=== PATIENT | female | born 1980 | race Caucasian/White ===

== ENCOUNTER 2018-02-10 11:18 | Emergency (ER) | payer OTHER ==
--- OUTSIDE RECORDS SUMMARY | 2018-02-10 11:20 | XMS REPORT ---
:1980 [facility] Address [address] [place] [id number] Care Team Providers Name Role Phone MILAGRO KIMBROUGH Unavailable Unavailable Problems This patient has no known problems. Allergies, Adverse Reactions, Alerts This patient has no known allergies or adverse reactions. Medications This patient has no known medications. Results Test Description Test Time Test Comments Text Results Atomic Results Result Comments CARDIOLIPIN ANTIBODIES, IGG AND IGM 2016-10-19 11:17:00 Test Item Value Reference Range Comments ANTICARDIOLIPIN IGG ANTIBODY (BEAKER) (test otrn=361) < GPL ANTICARDIOLIPIN IGM ANTIBODY (BEAKER) (test xxng=680) 0.6 MPL Anticardiolipin IgG Result Interpretation: NEG:<20 GPL; U/mlPOS:>/=20 GPL ;U/mlAnticardiolipinIgM Result Interpretation: NEG:<20 MPL; U/mlPOS:>/= 20 MPL;U/[id number] 19:19:00 Test Item Value Reference Range Comments HOMOCYSTEINE (BEAKER) (test ywby=515) 19.1 umol/L 5.1-15.4 HEMOGLOBIN [id number] 16:55:00 Test Item Value Reference Range Comments HEMOGLOBIN A1C (BEAKER) (test rowa=355) 5.1 % 4.3-6.1 TSH/FREE T4 IF [id number] 16:00:00 Test Item Value Reference Range Comments THYROID STIMULATING HORMONE (BEAKER) (test 1.64 uIU/mL 0.35-4.94 tgyv=210) VITAMIN B12 AND [id number] 16:00:00 Test Item Value Reference Range Comments VITAMIN B12 (BEAKER) (test lzoy=813) 241 pg/mL 213-816 FOLATE (BEAKER) (test oywo=493) 3.7 ng/mL >=7.0 Effective 07/08/2014: Folate Reference Range ChangeNew: >=7.0 Previous: & gt;=5.4SEDIMENTATION [id number] 15:57:00 Test Item Value Reference Range Comments SEDIMENTATION RATE, ERYTHROCYTE (BEAKER) (test 8 mm/HR 0-20 elin=835) LIPID [id number] 15:32:00 Test Item Value Reference Range Comments TRIGLYCERIDES (BEAKER) (test aofu=661) 98 mg/dL CHOLESTEROL (BEAKER) (test ehzn=052) 200 mg/dL HDL CHOLESTEROL (BEAKER) (test fdgw=719) 51 mg/dL LDL CHOLESTEROL CALCULATED (BEAKER) (test 129 mg/dL tdlb=822) Triglyceride Reference Range: Low Risk <150 Borderline 150- 199 High Risk 200-499 Very High Risk >=500Cholesterol Reference Range: Low Risk <200 Borderline 200-239 High Risk > 240HDL Cholesterol Reference Range: Low Risk >=60 High Risk <40LDL Cholesterol Reference Range: Optimal <100 Near Optimal 100-129 Borderline 130-159 High 160-189 Very High >=190C-REACTIVE [id number] 15:30:00 Test Item Value Reference Range Comments C-REACTIVE PROTEIN (BEAKER) (test aksk=341) 2.96 mg/dL 0.00-0.50 CBC W/PLT COUNT & AUTO [id number] 15:05:00 Test Item Value Reference Range Comments WHITE BLOOD CELL COUNT (BEAKER) (test deeu=774) 7.8 K/ L 4.0-10.0 RED BLOOD CELL COUNT (BEAKER) (test cwzs=387) 5.50 M/ L 4.00-5.00 HEMOGLOBIN (BEAKER) (test puyt=001) 16.4 GM/DL 12.0-15.0 HEMATOCRIT (BEAKER) (test cpdz=767) 48.2 % 36.0-45.0 MEAN CORPUSCULAR VOLUME (BEAKER) (test joes=558) 87.7 fL 82.0-99.0 MEAN CORPUSCULAR HEMOGLOBIN (BEAKER) (test 29.8 pg 27.0-33.0 tlue=852) MEAN CORPUSCULAR HEMOGLOBIN CONC (BEAKER) (test 34.0 GM/DL 32.0-36.0 dlap=702) RED CELL DISTRIBUTION WIDTH (BEAKER) (test 15.3 % 10.3-14.2 gqbg=815) PLATELET COUNT (BEAKER) (test dzey=657) 217 K/CU MM 150-430 MEAN PLATELET VOLUME (BEAKER) (test szxt=858) 7.3 fL 6.5-10.5 NUCLEATED RED BLOOD CELLS (BEAKER) (test 0 /100 WBC 0-0 elut=497) NEUTROPHILS RELATIVE PERCENT (BEAKER) (test 67 % xmsj=591) LYMPHOCYTES RELATIVE PERCENT (BEAKER) (test 22 % ufur=629) MONOCYTES RELATIVE PERCENT (BEAKER) (test 8 % hmwl=906) EOSINOPHILS RELATIVE PERCENT (BEAKER) (test 1 % pdzi=069) BASOPHILS RELATIVE PERCENT (BEAKER) (test 2 % efqp=727) NEUTROPHILS ABSOLUTE COUNT (BEAKER) (test 5.25 K/ L 1.80-8.00 lxln=954) LYMPHOCYTES ABSOLUTE COUNT (BEAKER) (test 1.68 K/ L 1.48-4.50 yaqw=845) MONOCYTES ABSOLUTE COUNT (BEAKER) (test 0.65 K/ L 0.00-1.30 nqsq=334) EOSINOPHILS ABSOLUTE COUNT (BEAKER) (test 0.09 K/ L 0.00-0.50 gsri=485) BASOPHILS ABSOLUTE COUNT (BEAKER) (test 0.14 K/ L 0.00-0.20 aipz=808) [id number] 07:34:00 Test Item Value Reference Range Comments MAGNESIUM (BEAKER) (test 2.0 mg/dL 1.6-2.6 Specimen slightly hemolyzed udxe=874) BASIC METABOLIC [id number] 07:33:00 Test Item Value Reference Range Comments SODIUM (BEAKER) (test 136 meq/L 136-145 vccy=777) POTASSIUM (BEAKER) (test 4.1 meq/L 3.5-5.1 kvtt=281) CHLORIDE (BEAKER) (test 107 meq/L 98-107 hofk=599) CO2 (BEAKER) (test 20 meq/L 22-29 wtqw=796) BLOOD UREA NITROGEN 10 mg/dL 7-21 (BEAKER) (test cfln=052) CREATININE (BEAKER) (test 0.72 mg/dL 0.57-1.25 gpne=930) GLUCOSE RANDOM (BEAKER) 84 mg/dL 70-105 (test epdl=975) CALCIUM (BEAKER) (test 8.3 mg/dL 8.4-10.2 egrj=111) EGFR (BEAKER) (test 91 mL/min/1.73 sq m ESTIMATED GFR IS NOT wvoa=7886) ACCURATE CREATININE CLEARANCE IN PREDICTING GLOMERULAR FILTRATION RATE. ESTIMATED GFR IS NOT APPLICABLE FOR DIALYSIS PATIENTS. [id number] 07:27:00 Test Item Value Reference Range Comments MAGNESIUM (BEAKER) (test djpm=194) 1.7 mg/dL 1.6-2.6 SCREEN, [id number] 13:54:00 Test Item Value Reference Range Comments TEST URINE (BEAKER) (test dacn=782) Negative [id number] 02:55:00 Test Item Value Reference Range Comments MAGNESIUM (BEAKER) (test satg=243) 1.8 mg/dL 1.6-2.6 PHENYTOIN LEVEL, [id number] 00:30:00 Test Item Value Reference Range Comments PHENYTOIN (DILANTIN) (BEAKER) (test nhsl=960) 7.3 ug/mL 10.0-20.0 HEPATIC FUNCTION [id number] 00:26:00 Test Item Value Reference Range Comments TOTAL PROTEIN (BEAKER) (test ckup=509) 6.4 gm/dL 6.0-8.3 ALBUMIN (BEAKER) (test teig=3226) 3.8 g/dL 3.5-5.0 BILIRUBIN TOTAL (BEAKER) (test zvvf=900) 0.4 mg/dL 0.2-1.2 BILIRUBIN DIRECT (BEAKER) (test dsqy=281) 0.2 mg/dL 0.1-0.5 ALKALINE PHOSPHATASE (BEAKER) (test jmdq=504) 114 U/L 40-150 AST (SGOT) (BEAKER) (test siob=872) 16 U/L 5-34 ALT (SGPT) (BEAKER) (test qcvq=291) 20 U/L 6-55 BASIC METABOLIC [id number] 00:26:00 Test Item Value Reference Range Comments SODIUM (BEAKER) (test 138 meq/L 136-145 bsqd=489) POTASSIUM (BEAKER) (test 4.0 meq/L 3.5-5.1 znss=907) CHLORIDE (BEAKER) (test 109 meq/L 98-107 oith=098) CO2 (BEAKER) (test 21 meq/L 22-29 wtda=468) BLOOD UREA NITROGEN 7 mg/dL 7-21 (BEAKER) (test kozm=973) CREATININE (BEAKER) (test 0.74 mg/dL 0.57-1.25 quyn=998) GLUCOSE RANDOM (BEAKER) 103 mg/dL 70-105 (test uoyt=157) CALCIUM (BEAKER) (test 9.0 mg/dL 8.4-10.2 zthq=309) EGFR (BEAKER) (test 88 mL/min/1.73 sq m ESTIMATED GFR IS NOT gfyv=2140) ACCURATE CREATININE CLEARANCE IN PREDICTING GLOMERULAR FILTRATION RATE. ESTIMATED GFR IS NOT APPLICABLE FOR DIALYSIS PATIENTS. [id number] 00:26:00 Test Item Value Reference Range Comments ALBUMIN (BEAKER) (test hnbf=3401) 3.8 g/dL 3.5-5.0 CBC W/PLT COUNT & AUTO [id number] 00:16:00 Test Item Value Reference Range Comments WHITE BLOOD CELL COUNT (BEAKER) (test khcx=120) 10.1 K/ L 4.0-10.0 RED BLOOD CELL COUNT (BEAKER) (test utxs=257) 5.45 M/ L 4.00-5.00 HEMOGLOBIN (BEAKER) (test hudc=321) 15.5 GM/DL 12.0-15.0 HEMATOCRIT (BEAKER) (test folf=043) 48.8 % 36.0-45.0 MEAN CORPUSCULAR VOLUME (BEAKER) (test sspp=301) 89.6 fL 82.0-99.0 MEAN CORPUSCULAR HEMOGLOBIN (BEAKER) (test 28.4 pg 27.0-33.0 qzll=342) MEAN CORPUSCULAR HEMOGLOBIN CONC (BEAKER) (test 31.7 GM/DL 32.0-36.0 ymyn=981) RED CELL DISTRIBUTION WIDTH (BEAKER) (test 15.5 % 10.3-14.2 jcuf=689) PLATELET COUNT (BEAKER) (test oowz=460) 260 K/CU MM 150-430 MEAN PLATELET VOLUME (BEAKER) (test eqqe=165) 7.7 fL 6.5-10.5 NUCLEATED RED BLOOD CELLS (BEAKER) (test 0 /100 WBC 0-0 wuap=661) NEUTROPHILS RELATIVE PERCENT (BEAKER) (test 83 % yqus=127) LYMPHOCYTES RELATIVE PERCENT (BEAKER) (test 12 % gxbb=020) MONOCYTES RELATIVE PERCENT (BEAKER) (test 4 % yjsq=303) EOSINOPHILS RELATIVE PERCENT (BEAKER) (test 0 % fdnf=214) BASOPHILS RELATIVE PERCENT (BEAKER) (test 0 % qnmc=134) NEUTROPHILS ABSOLUTE COUNT (BEAKER) (test 8.39 K/ L 1.80-8.00 bxpk=544) LYMPHOCYTES ABSOLUTE COUNT (BEAKER) (test 1.24 K/ L 1.48-4.50 mwbj=541) MONOCYTES ABSOLUTE COUNT (BEAKER) (test 0.40 K/ L 0.00-1.30 akkl=510) EOSINOPHILS ABSOLUTE COUNT (BEAKER) (test 0.03 K/ L 0.00-0.50 iddr=350) BASOPHILS ABSOLUTE COUNT (BEAKER) (test 0.03 K/ L 0.00-0.20 fhux=922) 0.00
--- OUTSIDE RECORDS SUMMARY | 2018-02-10 11:20 | XMS REPORT | Clinical Summary ---
:1980 Author Organization [facility] Address [address] [place] [address] Phone Care Team Providers Name Role Phone Unavailable Primary Care Provider Unavailable Allergies Active Allergy Reactions Severity Noted Date Comments Cefaclor 10/14/2016 Sulfa (Sulfonamide Antibiotics) 10/14/2016 Ketorolac 10/14/2016 Current Medications Prescription Sig. Disp. Refills Start Date End Date Status phenytoin (DILANTIN) 100 Take by mouth 3 Active MG ER capsuleIndications: (three) times epilepsy daily. Active Problems Problem Noted Date Headache 10/14/2016 Seizure disorder (HCC) 10/14/2016 Hypertensive urgency 10/14/2016 Social History Tobacco Use Types Packs/Day Years Used Date Never Assessed Sex Assigned at Date Recorded Not on file Last Filed Vital Signs Not on file Plan of Treatment Not on file Results Not on fileafter 02/09/2017
[2018-02-10] MEDS ORDERED: MORPHINE 4 MG/ML SYR ONE ×2 (11:31→11:56)
[2018-02-10] MEDS ORDERED: ONDANSETRON 4 MG/2 ML VIAL ONE ×2 (11:32→13:51)
[2018-02-10] MEDS ORDERED: FOSPHENYTOIN PE 1,000 MG in NA CHLORIDE 0.9% 100 ML IV ONE (13:00)
[2018-02-10] MEDS ORDERED: HYDROCODONE/APAP 10/325 TAB ONE (13:17)
[2018-02-10] MEDS ORDERED: FENTANYL CITR 100 MCG/2 ML ONE (13:19)
--- NOTE | 2018-02-10 13:28 | RAD REPORT ---
EXAM DESCRIPTION: RAD - Humerus Right - 02/10/2018 12:19 pm CLINICAL HISTORY: fall seizure Shoulder pain COMPARISON: Humerus Right dated 12/17/2016; Shoulder Right 2 View dated 02/10/2018 FINDINGS: Study is somewhat limited due to nonstandard anatomic positioning. No acute fracture is se en.
--- NOTE | 2018-02-10 13:30 | RAD REPORT ---
EXAM DESCRIPTION: RAD - Shoulder Right 2 View - 02/10/2018 12:21 pm CLINICAL HISTORY: fall seizure Shoulder pain COMPARISON: Shoulder Right 2 View dated 01/15/2017 FINDINGS: No acute fracture or dislocation is suspected. Mild AC joint degenerative changes.
--- NOTE | 2018-02-10 13:53 | RAD REPORT ---
EXAM DESCRIPTION: CT - CTHCSPWOC - 02/10/2018 1:42 pm CLINICAL HISTORY: Trauma, head and neck injury. fall-seizure COMPARISON: Head C Spine Mpr Wo Con dated 03/13/2017; Head C Spine Mpr Wo Con dated 04/06/2016; CT HEA D CSPINE MPR WO CONTRAST dated 08/15/2015; CT HEAD CSPINE MPR WO CONTRAST dated 06/11/2015 TECHNIQUE: Axial 5 mm thick images of the head were obtained. Axial 2 mm thick images of the cervical spine were obtained with sagittal and coronal reconstruction images generated and reviewed. All CT scans are performed using dose optimization technique as appropriate and may include automated exposure control or mA/KV adjustment according to patient size. FINDINGS: CT HEAD WITHOUT CONTRAST: No acute hemorrhage, hydrocephalus or extra-axial collection is identified.No areas of brain edema or midline shift. The paranasal sinuses and mastoids are clear.The calvarium is intact. CT CERVICAL SPINE WITHOUT CONTRAST: No fracture or subluxation.Moderate lower cervical spondylosis.No prevertebral soft tissues swelling is identified. IMPRESSION: No acute intracranial or cervical spine findings.
--- NOTE | 2018-02-10 14:05 | ER ---
Nurse's Notes [facility] Name: Nelia Corley Age: 37 yrs Sex: Female : 1980 Arrival Date: 02/10/2018 Time: 11:21 Bed 4 Private MD: Diagnosis: Epilepsy and recurrent seizures;Pain in right shoulder;Subtheraputic Dilantin Level (1.9) Presentation: 02/10 11:36 Presenting complaint: Patient states: She thinks that she had a seizure, she woke up on aj1 the couch at approximately 10:30 with no recollection of how she got there. When she woke up she had severe pain in her right shoulder and was unable to move it. Also reports headache. Patient is A\T\O x4 at this time. Transition of care: patient was not received from another setting of care. Onset of symptoms was February 10, 2018 at 10:30. Risk Assessment: Do you want to hurt yourself or someone else? Patient reports no desire to harm self or others. Initial Sepsis Screen: Does the patient meet any 2 criteria? No. Patient's initial sepsis screen is negative. Does the patient have a suspected source of infection? No. Patient's initial sepsis screen is negative. Care prior to arrival: None. 11:36 Method Of Arrival: EMS: [facility] aj 11:36 Acuity: JENNIFER 3 aj1 Triage Assessment: 11:41 General: Appears uncomfortable, Behavior is anxious, crying. Pain: Complains of pain in aj1 top of head, base of the skull, anterior aspect of right shoulder and posterior aspect of right shoulder Pain currently is 10 out of 10 on a pain scale. Historical: - Allergies: 11:41 Ceclor; aj1 11:41 Sulfa (Sulfonamide Antibiotics); aj1 - Home Meds: 11:41 atorvastatin 80 mg Oral tab 1 tab once daily [Active]; clonidine HCl 0.1 mg Oral tab 1 aj1 tab 3 times per day [Active]; Dilantin 100 mg Oral every 8 hours [Active]; folic acid 1 mg Oral tab 1 tab once daily [Active]; hydralazine 25 mg Oral tab 1 tab 4 times per day [Active]; Norvasc 5 mg Oral tab 1 tab once daily [Active]; topiramate 25 mg Oral tab 1 tabs 2 times per day [Active]; buspirone 5 mg Oral tab 1 tab 3 times per day [Active]; - PMHx: 11:41 ADD/ADHD; Anxiety; CVA; Hypertension; NSTEMI; right rotator cuff torn; Seizures; aj1 - Immunization history:: Adult Immunizations up to date. - Ebola Screening: : Patient denies travel to an Ebola-affected area in the 21 days before illness onset. Screenin:43 Abuse screen: Denies threats or abuse. Denies injuries from another. Nutritional aj1 screening: No deficits noted. Tuberculosis screening: No symptoms or risk factors identified. 15:28 Fall Risk None identified. aj1 Assessment: 11:43 General: Appears uncomfortable, Behavior is anxious, crying. Pain: Complains of pain in aj1 posterior aspect of right shoulder and anterior aspect of right shoulder and base of the skull and top of head Pain radiates to right arm Pain currently is 10 out of 10 on a pain scale. Quality of pain is described as sharp, Pinching Pain began 1 hour ago. Is continuous, Alleviated by nothing. Aggravated by repositioning. Neuro: Level of Consciousness is awake, alert, obeys commands, Oriented to person, place, time, situation, Speech is normal, Facial symmetry appears normal. Cardiovascular: Patient's skin is warm and dry. Respiratory: Airway is patent Respiratory effort is even, unlabored, Respiratory pattern is regular, symmetrical. GI: No signs and/or symptoms were reported involving the gastrointestinal system. : No signs and/or symptoms were reported regarding the genitourinary system. EENT: No signs and/or symptoms were reported regarding the EENT system. Derm: No signs and/or symptoms reported regarding the dermatologic system. Skin is pink, warm \T\ dry. normal. Musculoskeletal: Capillary refill < 3 seconds, Range of motion: limited in right shoulder Right radial pulse palpable. 11:55 Reassessment: Patient states that the pain medication we administered has not helped aj1 her pain at all. She would like more pain medication. Notified Dr. Collins. Order received. General: Appears uncomfortable, Behavior is anxious, crying. Pain: Pain currently is 10 out of 10 on a pain scale. Neuro:. 13:10 Reassessment: Patient states that her pain was doing better, but now it is coming back, aj1 she is hurting a lot and needs more pain medication. Notified Dr. Collins. Order received. 13:22 Reassessment: Patient appears in no apparent distress at this time. No changes from aj1 previously documented assessment. Patient and/or family updated on plan of care and expected duration. Pain level reassessed. Patient is alert, oriented x 3, equal unlabored respirations, skin warm/dry/pink. 13:25 Reassessment: Patient taken to CT via stretcher. aj1 13:50 Reassessment: Patient returned from CT via stretcher. States that she is feeling really aj1 nauseated. Notified Dr Collins. Order received. 14:46 Reassessment: Patient appears in no apparent distress at this time. No changes from aj1 previously documented assessment. Patient and/or family updated on plan of care and expected duration. Pain level reassessed. Patient is alert, oriented x 3, equal unlabored respirations, skin warm/dry/pink. Discharge pending Dr. Collins coming to speak with patient. Vital Signs: 11:41 BP 166 / 114; Pulse 80; Resp 22; Temp 98.2; Pulse Ox 96% on R/A; aj1 12:26 BP 142 / 81; Pulse 82; Resp 20; Pulse Ox 97% on R/A; jb1 13:20 BP 165 / 97; Pulse 88; Resp 20; Pulse Ox 97% on R/A; aj1 14:46 BP 152 / 87; Pulse 82; Resp 18; Pulse Ox 99% ; aj1 ED Course: 11:21 Patient arrived in ED. hj 11:24 Julia Barrera FNP-C is PHCP. snw 11:24 Hank Collins MD is Attending Physician. snw 11:33 EKG done, by ED staff, reviewed by Hank Collins MD. jb1 11:36 Aatri Chacon, RN is Primary Nurse. aj1 11:38 Triage completed. aj1 11:40 Initial lab(s) drawn, by me. Inserted saline lock: 22 gauge in left antecubital area, aj1 using aseptic technique. Blood collected. 11:41 Arm band placed on. aj1 11:43 No provider procedures requiring assistance completed. aj1 11:43 Patient has correct armband on for positive identification. Bed in low position. Call aj1 light in reach. Side rails up X2. Seizure precautions initiated. 12:17 X-ray completed. Portable x-ray completed in exam room. Patient tolerated procedure la2 poorly. 12:18 Humerus Right In Process Unspecified. EDMS 12:18 Shoulder Right 2 View In Process Unspecified. EDMS 13:42 Head C Spine Mpr Wo Con In Process Unspecified. EDMS 13:42 CT completed. Patient tolerated procedure well. Patient moved back from CT. cw1 15:27 IV discontinued, intact, bleeding controlled, No redness/swelling at site. Pressure aj1 dressing applied. Sling applied to right arm. Administered Medications: 11:43 Drug: morphine 4 mg Route: IVP; Site: left antecubital; aj1 15:24 Follow up: Response: No adverse reaction aj1 11:43 Drug: Zofran 4 mg Route: IVP; Site: left antecubital; aj1 15:24 Follow up: Response: No adverse reaction aj1 12:00 Drug: morphine 4 mg Route: IVP; Site: left antecubital; aj1 15:25 Follow up: Response: No adverse reaction aj1 13:08 Drug: CEREbyx 1 grams Route: IVPB; Site: left antecubital; aa5 15:25 Follow up: IV Status: Completed infusion; IV Intake: 250ml aj1 13:21 Drug: [place] 10 mg-325 mg 1 tabs Route: PO; aj1 15:25 Follow up: Response: No adverse reaction aj1 13:22 Drug: fentaNYL (PF) 50 mcg Route: IVP; Site: left antecubital; aj1 15:25 Follow up: Response: No adverse reaction aj1 13:52 Drug: Zofran 4 mg Route: IVP; Site: left antecubital; aj1 15:25 Follow up: Response: No adverse reaction aj1 Intake: 15:25 IV: 250ml; Total: 250ml. aj1 Outcome: 14:05 Discharge ordered by . kdr 15:28 Discharged to home ambulatory, with friend. aj1 15:28 Condition: good 15:28 Discharge instructions given to patient, Instructed on discharge instructions, follow up and referral plans. no drinking with medication, no driving heavy equipment, medication usage, Demonstrated understanding of instructions, follow-up care, medications, Prescriptions given X 2. 15:28 Patient left the ED. aj1 Signatures: Dispatcher [employer] EDMS Rikki, [place] jb1 Aarti Chacon, RN RN aj1 Hank Collins MD MD kdr Julia Barrera, MAIL HANDLERS SUPERVISOR-C MAIL HANDLERS SUPERVISOR-Csnw Hina Zambrano RN RN aa5 Danika Rodriguez cw1 Celio Jarvis RN RN Mira Laurent [facility]
--- NOTE | 2018-02-10 14:05 | EDPHYS ---
Physician Documentation [facility] Name: Nelia Corley Age: 37 yrs Sex: Female : 1980 Arrival Date: 02/10/2018 Time: 11:21 Bed 4 Private MD: ED Physician Hank Collins HPI: 02/10 12:06 This 37 yrs old Female presents to ER via EMS with complaints of Right kdr shouleer pain and possible seizure. 12:06 The patient or guardian complains of decreased range of motion, an injury, pain, that kdr is acute, tenderness. right shoulder. Context: The problem was sustained at home, resulted from an unknown reason, The patient states that when she woke up this morning, she had pain in her arm and she suspected she may have had a seizure. She indicates that she has dislocated her shoulder previously, The patient experiences decreased range of motion, The patient reports no obvious deformity. Onset: The symptoms/episode began/occurred just prior to arrival, this morning. Modifying factors: the symptoms are alleviated by nothing. The symptoms are aggravated by movement, rotation of arm. Associated signs and symptoms: Pertinent positives: headache. Severity of symptoms: At their worst the symptoms were mild, moderate, just prior to arrival, in the emergency department the symptoms are unchanged. Treatment prior to arrival includes: sling. The patient has experienced a previous episode. The patient has not recently seen a physician. Historical: - Allergies: 11:41 Ceclor; aj1 11:41 Sulfa (Sulfonamide Antibiotics); aj1 - Home Meds: 11:41 atorvastatin 80 mg Oral tab 1 tab once daily [Active]; clonidine HCl 0.1 mg Oral tab 1 aj1 tab 3 times per day [Active]; Dilantin 100 mg Oral every 8 hours [Active]; folic acid 1 mg Oral tab 1 tab once daily [Active]; hydralazine 25 mg Oral tab 1 tab 4 times per day [Active]; Norvasc 5 mg Oral tab 1 tab once daily [Active]; topiramate 25 mg Oral tab 1 tabs 2 times per day [Active]; buspirone 5 mg Oral tab 1 tab 3 times per day [Active]; - PMHx: 11:41 ADD/ADHD; Anxiety; CVA; Hypertension; NSTEMI; right rotator cuff torn; Seizures; aj1 - Immunization history:: Adult Immunizations up to date. - Ebola Screening: : Patient denies travel to an Ebola-affected area in the 21 days before illness onset. ROS: 12:06 Constitutional: Negative for fever, chills, and weight loss, Eyes: Negative for injury, kdr pain, redness, and discharge, ENT: Negative for injury, pain, and discharge, Neck: Negative for injury, pain, and swelling, Cardiovascular: Negative for chest pain, palpitations, and edema, Respiratory: Negative for shortness of breath, cough, wheezing, and pleuritic chest pain, Abdomen/GI: Negative for abdominal pain, nausea, vomiting, diarrhea, and constipation, Back: Negative for injury and pain, : Negative for injury, bleeding, discharge, and swelling, Skin: Negative for injury, rash, and discoloration, Psych: Negative for depression, anxiety, suicide ideation, homicidal ideation, and hallucinations, Allergy/Immunology: Negative for hives, rash, and allergies, Endocrine: Negative for neck swelling, polydipsia, polyuria, polyphagia, and marked weight changes, Hematologic/Lymphatic: Negative for swollen nodes, abnormal bleeding, and unusual bruising. 12:06 MS/extremity: Positive for injury or acute deformity, decreased range of motion, pain, tenderness. Exam: 12:06 Constitutional: This is a well developed, well nourished patient who is awake, alert, kdr and in moderate distress. Head/Face: Normocephalic, atraumatic. Eyes: Pupils equal round and reactive to light, extra-ocular motions intact. Lids and lashes normal. Conjunctiva and sclera are non-icteric and not injected. Cornea within normal limits. Periorbital areas with no swelling, redness, or edema. Neck: Trachea midline, no thyromegaly or masses palpated, and no cervical lymphadenopathy. Supple, full range of motion without nuchal rigidity, or vertebral point tenderness. No Meningismus. Chest/axilla: Normal chest wall appearance and motion. Nontender with no deformity. No lesions are appreciated. Cardiovascular: Regular rate and rhythm with a normal S1 and S2. No gallops, murmurs, or rubs. Normal PMI, no JVD. No pulse deficits. Respiratory: Lungs have equal breath sounds bilaterally, clear to auscultation and percussion. No rales, rhonchi or wheezes noted. No increased work of breathing, no retractions or nasal flaring. Abdomen/GI: Soft, non-tender, with normal bowel sounds. No distension or tympany. No guarding or rebound. No evidence of tenderness throughout. Back: No spinal tenderness. No costovertebral tenderness. Full range of motion. Skin: Warm, dry with normal turgor. Normal color with no rashes, no lesions, and no evidence of cellulitis. Neuro: Awake and alert, GCS 15, oriented to person, place, time, and situation. Cranial nerves II-XII grossly intact. Motor strength 5/5 in all extremities. Sensory grossly intact. Cerebellar exam normal. Normal gait. Psych: Awake, alert, with orientation to person, place and time. Behavior, mood, and affect are within normal limits. 12:06 Musculoskeletal/extremity: ROM: The patient is unable to move her right shoulder due to pain - n/v intact distal to the injury. No obvious injury to the right shoulder and no anterior fullness. Vital Signs: 11:41 BP 166 / 114; Pulse 80; Resp 22; Temp 98.2; Pulse Ox 96% on R/A; aj1 12:26 BP 142 / 81; Pulse 82; Resp 20; Pulse Ox 97% on R/A; jb1 13:20 BP 165 / 97; Pulse 88; Resp 20; Pulse Ox 97% on R/A; aj1 14:46 BP 152 / 87; Pulse 82; Resp 18; Pulse Ox 99% ; aj1 MDM: 11:25 Patient medically screened. snw 12:06 Data reviewed: vital signs, nurses notes, lab test result(s), radiologic studies. [facility] 02/10 11:51 Order name: Phenytoin (Dilantin) Level; Complete Time: 12:39 EDOK 02/10 11:43 Order name: Head C Spine Mpr Wo Con; Complete Time: 14:04 EDOK 02/10 11:43 Order name: Humerus Right; Complete Time: 14:04 EDOK 02/10 11:43 Order name: Shoulder Right 2 View; Complete Time: 14:04 [facility] 02/10 14:09 Order name: Sling; Complete Time: 15:24 kdr Administered Medications: 11:43 Drug: morphine 4 mg Route: IVP; Site: left antecubital; aj1 15:24 Follow up: Response: No adverse reaction aj1 11:43 Drug: Zofran 4 mg Route: IVP; Site: left antecubital; aj1 15:24 Follow up: Response: No adverse reaction aj1 12:00 Drug: morphine 4 mg Route: IVP; Site: left antecubital; aj1 15:25 Follow up: Response: No adverse reaction aj1 13:08 Drug: CEREbyx 1 grams Route: IVPB; Site: left antecubital; aa5 15:25 Follow up: IV Status: Completed infusion; IV Intake: 250ml aj1 13:21 Drug: Murdo 10 mg-325 mg 1 tabs Route: PO; aj1 15:25 Follow up: Response: No adverse reaction aj1 13:22 Drug: fentaNYL (PF) 50 mcg Route: IVP; Site: left antecubital; aj1 15:25 Follow up: Response: No adverse reaction aj1 13:52 Drug: Zofran 4 mg Route: IVP; Site: left antecubital; aj1 15:25 Follow up: Response: No adverse reaction aj Disposition: 02/10/18 14:05 Discharged to Home. Impression: Epilepsy and recurrent seizures, Pain in right shoulder, Subtheraputic Dilantin Level (1.9). - Condition is Stable. - Discharge Instructions: Shoulder Pain, Flre-ur-Zsew, Seizure, Adult, Esnd-mz-Glth, Sling Use After Injury or Surgery, Ieny-kl-Zoyv, Arthralgia, Timg-qa-Fmyn. - Prescriptions for Tylenol- Codeine #3 300-30 mg Oral Tablet - take 2 tablets by ORAL route every 6 hours As needed; 15 tablet. Zofran 4 mg Oral Tablet - take 1 tablet by ORAL route every 12 hours As needed; 15 tablet. - Medication Reconciliation Form, Thank You Letter, Antibiotic Education, Prescription Opioid Use form. - Follow up: Private Physician; When: 2 - 3 days; Reason: If symptoms return, Further diagnostic work-up, Recheck today's complaints, Continuance of care, Re-evaluation by your physician. - Problem is new. - Symptoms have improved. Signatures: Dispatcher [employer] Aarti Mauricio RN RN aj1 Hank Collins MD MD kdr Therrien, Shelly, SPECTACLE TRUER-C SPECTACLE TRUER-Csnw Zambrano, Hina, RN RN aa5 Corrections: (The following items were deleted from the chart) 13:23 13:14 Shoulder Right 2 View+RAD.RAD.BRZ ordered. EDOK EDOK 13:23 13:14 Humerus Right+RAD.RAD.BRZ ordered. EDOK EDMS 13:43 13:14 Head C Spine MPR Wo Con+CT.RAD.BRZ ordered. EDOK EDMS 14:06 14:05 02/10/2018 14:05 Discharged to Home. Impression: Epilepsy and recurrent seizures; kdr Pain in right shoulder. Condition is Stable. Forms are Medication Reconciliation Form, Thank You Letter, Antibiotic Education, Prescription Opioid Use. Follow up: Private Physician; When: 2 - 3 days; Reason: If symptoms return, Further diagnostic work-up, Recheck today's complaints, Continuance of care, Re-evaluation by your physician. Problem is new. Symptoms have improved. kdr 14:59 13:14 PHENYTOIN (DILANTIN)+C.LAB.BRZ ordered. [facility] EDOK 15:28 14:06 02/10/2018 14:05 Discharged to Home. Impression: Epilepsy and recurrent seizures; aj1 Pain in right shoulder; Subtheraputic Dilantin Level (1.9). Condition is Stable. Forms are Medication Reconciliation Form, Thank You Letter, Antibiotic Education, Prescription Opioid Use. Follow up: Private Physician; When: 2 - 3 days; Reason: If symptoms return, Further diagnostic work-up, Recheck today's complaints, Continuance of care, Re-evaluation by your physician. Problem is new. Symptoms have improved. kdr
[2018-02-10 15:57] VITALS: TEMP 98.2
[2018-02-10 16:01] VITALS: BP 152/87; O2SAT 99
--- NOTE | 2018-02-12 06:58 | EKG ---
Test Date: 2018-02-10 Test Time: 11:30:36 Journal Entry Audit Clerk: JASMIN MEASUREMENT RESULTS: Intervals: Rate: 74 AK: 154 QRSD: 80 QT: 390 QTc: 432 [place]: P: 32 AK: 154 QRS: 12 T: 37 INTERPRETIVE STATEMENTS: Normal sinus rhythm with sinus arrhythmia Normal ECG Compared to ECG 06/11/2017 22:58:55 No significant changes Electronically Signed On 02-12-18 06:57:59 CDT by Nile Price
== END 2018-02-10 15:28 | disposition home or self-care (01) ==
LOC: ER 11:18
DX: G40.909 Epilepsy, unspecified, not intractable, without status epilepticus (principal); T42.0X6A Underdosing of hydantoin derivatives, initial encounter; Z91.138 Patient's unintentional underdosing of medication regimen for other reason; I10 Essential (primary) hypertension; I25.2 Old myocardial infarction; Z86.73 Personal history of transient ischemic attack (TIA), and cerebral infarction without residual deficits; Z88.2 Allergy status to sulfonamides; Z88.8 Allergy status to other drugs, medicaments and biological substances
CPT/HCPCS: 36415; 70450; 72125; 80185; 93005; 96365; 96366; 96375; 99285; J2405; J3010; Q2009

== ENCOUNTER 2018-03-18 11:01 | Emergency (ER) | payer OTHER ==
[2012-02-08 12:13] VITALS: BP 167/102
--- OUTSIDE RECORDS SUMMARY | 2018-03-18 11:03 | XMS REPORT ---
:1980 [facility] Address [facility] [place] [address] Care Team Providers Name Role Phone MILAGRO [...] Range Comments ANTICARDIOLIPIN IGG ANTIBODY (BEAKER) (test yknj=845) < GPL ANTICARDIOLIPIN IGM ANTIBODY (BEAKER) (test gfgv=605) 0.6 MPL Anticardiolipin IgG Result Interpretation: NEG:<20 GPL; U/mlPOS:>/=20 GPL ;U/mlAnticardiolipinIgM Result Interpretation: NEG:<20 MPL; U/mlPOS:>/= 20 MPL;U/[id number] 19:19:00 Test Item Value Reference Range Comments HOMOCYSTEINE (BEAKER) (test snqj=752) 19.1 umol/L 5.1-15.4 HEMOGLOBIN [id number] 16:55:00 Test Item Value Reference Range Comments HEMOGLOBIN A1C (BEAKER) (test jekm=625) 5.1 % 4.3-6.1 TSH/FREE T4 IF [id number] 16:00:00 Test Item Value Reference Range Comments THYROID STIMULATING HORMONE (BEAKER) (test 1.64 uIU/mL 0.35-4.94 myao=657) VITAMIN B12 AND [id number] 16:00:00 Test Item Value Reference Range Comments VITAMIN B12 (BEAKER) (test gyzq=528) 241 pg/mL 213-816 FOLATE (BEAKER) (test jprd=828) 3.7 ng/mL >=7.0 Effective 07/08/2014: Folate Reference Range ChangeNew: >=7.0 Previous: & gt;=5.4SEDIMENTATION [id number] 15:57:00 Test Item Value Reference Range Comments SEDIMENTATION RATE, ERYTHROCYTE (BEAKER) (test 8 mm/HR 0-20 wbhr=302) LIPID [id number] 15:32:00 Test Item Value Reference Range Comments TRIGLYCERIDES (BEAKER) (test xntt=550) 98 mg/dL CHOLESTEROL (BEAKER) (test spqc=074) 200 mg/dL HDL CHOLESTEROL (BEAKER) (test wqpe=439) 51 mg/dL LDL CHOLESTEROL CALCULATED (BEAKER) (test 129 mg/dL chsy=806) Triglyceride Reference Range: Low Risk <150 Borderline 150- 199 High Risk 200-499 Very High Risk >=500Cholesterol Reference Range: Low Risk <200 Borderline 200-239 High Risk > 240HDL Cholesterol Reference Range: Low Risk >=60 High Risk <40LDL Cholesterol Reference Range: Optimal <100 Near Optimal 100-129 Borderline 130-159 High 160-189 Very High >=190C-REACTIVE [id number] 15:30:00 Test Item Value Reference Range Comments C-REACTIVE PROTEIN (BEAKER) (test flyz=088) 2.96 mg/dL 0.00-0.50 CBC W/PLT COUNT & AUTO [id number] 15:05:00 Test Item Value Reference Range Comments WHITE BLOOD CELL COUNT (BEAKER) (test osmt=320) 7.8 K/ L 4.0-10.0 RED BLOOD CELL COUNT (BEAKER) (test wswl=782) 5.50 M/ L 4.00-5.00 HEMOGLOBIN (BEAKER) (test mgby=307) 16.4 GM/DL 12.0-15.0 HEMATOCRIT (BEAKER) (test hwdq=509) 48.2 % 36.0-45.0 MEAN CORPUSCULAR VOLUME (BEAKER) (test esje=933) 87.7 fL 82.0-99.0 MEAN CORPUSCULAR HEMOGLOBIN (BEAKER) (test 29.8 pg 27.0-33.0 hfah=937) MEAN CORPUSCULAR HEMOGLOBIN CONC (BEAKER) (test 34.0 GM/DL 32.0-36.0 zplh=230) RED CELL DISTRIBUTION WIDTH (BEAKER) (test 15.3 % 10.3-14.2 jyen=443) PLATELET COUNT (BEAKER) (test uyqs=636) 217 K/CU MM 150-430 MEAN PLATELET VOLUME (BEAKER) (test oxwz=896) 7.3 fL 6.5-10.5 NUCLEATED RED BLOOD CELLS (BEAKER) (test 0 /100 WBC 0-0 yxxm=630) NEUTROPHILS RELATIVE PERCENT (BEAKER) (test 67 % okqm=938) LYMPHOCYTES RELATIVE PERCENT (BEAKER) (test 22 % uiok=957) MONOCYTES RELATIVE PERCENT (BEAKER) (test 8 % badl=799) EOSINOPHILS RELATIVE PERCENT (BEAKER) (test 1 % lgqp=475) BASOPHILS RELATIVE PERCENT (BEAKER) (test 2 % fosr=558) NEUTROPHILS ABSOLUTE COUNT (BEAKER) (test 5.25 K/ L 1.80-8.00 jjtg=346) LYMPHOCYTES ABSOLUTE COUNT (BEAKER) (test 1.68 K/ L 1.48-4.50 getf=790) MONOCYTES ABSOLUTE COUNT (BEAKER) (test 0.65 K/ L 0.00-1.30 hora=008) EOSINOPHILS ABSOLUTE COUNT (BEAKER) (test 0.09 K/ L 0.00-0.50 fczl=613) BASOPHILS ABSOLUTE COUNT (BEAKER) (test 0.14 K/ L 0.00-0.20 vzhr=803) [id number] 07:34:00 Test Item Value Reference Range Comments MAGNESIUM (BEAKER) (test 2.0 mg/dL 1.6-2.6 Specimen slightly hemolyzed xiof=511) BASIC METABOLIC [id number] 07:33:00 Test Item Value Reference Range Comments SODIUM (BEAKER) (test 136 meq/L 136-145 upta=404) POTASSIUM (BEAKER) (test 4.1 meq/L 3.5-5.1 glyz=105) CHLORIDE (BEAKER) (test 107 meq/L 98-107 qlpn=760) CO2 (BEAKER) (test 20 meq/L 22-29 ldxf=750) BLOOD UREA NITROGEN 10 mg/dL 7-21 (BEAKER) (test zwpb=594) CREATININE (BEAKER) (test 0.72 mg/dL 0.57-1.25 godx=602) GLUCOSE RANDOM (BEAKER) 84 mg/dL 70-105 (test ebxn=596) CALCIUM (BEAKER) (test 8.3 mg/dL 8.4-10.2 ixcy=714) EGFR (BEAKER) (test 91 mL/min/1.73 sq m ESTIMATED GFR IS NOT pgpx=7569) ACCURATE CREATININE CLEARANCE IN PREDICTING GLOMERULAR FILTRATION RATE. ESTIMATED GFR IS NOT APPLICABLE FOR DIALYSIS PATIENTS. [id number] 07:27:00 Test Item Value Reference Range Comments MAGNESIUM (BEAKER) (test ymmj=694) 1.7 mg/dL 1.6-2.6 SCREEN, [id number] 13:54:00 Test Item Value Reference Range Comments TEST URINE (BEAKER) (test wfzg=116) Negative [id number] 02:55:00 Test Item Value Reference Range Comments MAGNESIUM (BEAKER) (test wdcu=801) 1.8 mg/dL 1.6-2.6 PHENYTOIN LEVEL, [id number] 00:30:00 Test Item Value Reference Range Comments PHENYTOIN (DILANTIN) (BEAKER) (test hlas=860) 7.3 ug/mL 10.0-20.0 HEPATIC FUNCTION [id number] 00:26:00 Test Item Value Reference Range Comments TOTAL PROTEIN (BEAKER) (test ejwd=793) 6.4 gm/dL 6.0-8.3 ALBUMIN (BEAKER) (test edrw=4426) 3.8 g/dL 3.5-5.0 BILIRUBIN TOTAL (BEAKER) (test gufa=660) 0.4 mg/dL 0.2-1.2 BILIRUBIN DIRECT (BEAKER) (test fspt=961) 0.2 mg/dL 0.1-0.5 ALKALINE PHOSPHATASE (BEAKER) (test wqnh=476) 114 U/L 40-150 AST (SGOT) (BEAKER) (test grsd=746) 16 U/L 5-34 ALT (SGPT) (BEAKER) (test zvrf=348) 20 U/L 6-55 BASIC METABOLIC [id number] 00:26:00 Test Item Value Reference Range Comments SODIUM (BEAKER) (test 138 meq/L 136-145 evmw=270) POTASSIUM (BEAKER) (test 4.0 meq/L 3.5-5.1 hcnw=470) CHLORIDE (BEAKER) (test 109 meq/L 98-107 wxyu=087) CO2 (BEAKER) (test 21 meq/L 22-29 crci=895) BLOOD UREA NITROGEN 7 mg/dL 7-21 (BEAKER) (test zycy=816) CREATININE (BEAKER) (test 0.74 mg/dL 0.57-1.25 mhcb=858) GLUCOSE RANDOM (BEAKER) 103 mg/dL 70-105 (test gtht=003) CALCIUM (BEAKER) (test 9.0 mg/dL 8.4-10.2 viyn=402) EGFR (BEAKER) (test 88 mL/min/1.73 sq m ESTIMATED GFR IS NOT zzqa=5836) ACCURATE CREATININE CLEARANCE IN PREDICTING GLOMERULAR FILTRATION RATE. ESTIMATED GFR IS NOT APPLICABLE FOR DIALYSIS PATIENTS. [id number] 00:26:00 Test Item Value Reference Range Comments ALBUMIN (BEAKER) (test kuqs=8786) 3.8 g/dL 3.5-5.0 CBC W/PLT COUNT & AUTO [id number] 00:16:00 Test Item Value Reference Range Comments WHITE BLOOD CELL COUNT (BEAKER) (test irth=986) 10.1 K/ L 4.0-10.0 RED BLOOD CELL COUNT (BEAKER) (test vtxe=211) 5.45 M/ L 4.00-5.00 HEMOGLOBIN (BEAKER) (test czqy=634) 15.5 GM/DL 12.0-15.0 HEMATOCRIT (BEAKER) (test hkzg=582) 48.8 % 36.0-45.0 MEAN CORPUSCULAR VOLUME (BEAKER) (test xmit=177) 89.6 fL 82.0-99.0 MEAN CORPUSCULAR HEMOGLOBIN (BEAKER) (test 28.4 pg 27.0-33.0 ygof=961) MEAN CORPUSCULAR HEMOGLOBIN CONC (BEAKER) (test 31.7 GM/DL 32.0-36.0 xqax=563) RED CELL DISTRIBUTION WIDTH (BEAKER) (test 15.5 % 10.3-14.2 hbsr=812) PLATELET COUNT (BEAKER) (test gnoa=182) 260 K/CU MM 150-430 MEAN PLATELET VOLUME (BEAKER) (test woir=597) 7.7 fL 6.5-10.5 NUCLEATED RED BLOOD CELLS (BEAKER) (test 0 /100 WBC 0-0 eeeh=573) NEUTROPHILS RELATIVE PERCENT (BEAKER) (test 83 % fvxp=682) LYMPHOCYTES RELATIVE PERCENT (BEAKER) (test 12 % jsts=384) MONOCYTES RELATIVE PERCENT (BEAKER) (test 4 % vhih=758) EOSINOPHILS RELATIVE PERCENT (BEAKER) (test 0 % dtlr=229) BASOPHILS RELATIVE PERCENT (BEAKER) (test 0 % gsbz=761) NEUTROPHILS ABSOLUTE COUNT (BEAKER) (test 8.39 K/ L 1.80-8.00 sios=675) LYMPHOCYTES ABSOLUTE COUNT (BEAKER) (test 1.24 K/ L 1.48-4.50 izds=996) MONOCYTES ABSOLUTE COUNT (BEAKER) (test 0.40 K/ L 0.00-1.30 cudy=771) EOSINOPHILS ABSOLUTE COUNT (BEAKER) (test 0.03 K/ L 0.00-0.50 nljn=359) BASOPHILS ABSOLUTE COUNT (BEAKER) (test 0.03 K/ L 0.00-0.20 clby=227) 0.00
--- OUTSIDE RECORDS SUMMARY | 2018-03-18 11:03 | XMS REPORT | Clinical Summary ---
:1980 Author Organization [facility] Address [address] [place] [address] Phone Care Team Providers Name Role Phone [...] Not on file Results Not on fileafter 03/17/2017
--- NOTE | 2018-03-18 11:21 | EDPHYS ---
Physician Documentation [facility] Name: Nelia Corley Age: 37 yrs Sex: Female : 1980 Arrival Date: 03/18/2018 Time: 11:05 Bed 13 Private MD: ED Physician Hank Collins HPI: 03/18 11:28 This 37 yrs old Female presents to ER via Unassigned with complaints of snw Seizure. 11:28 The patient presents after having a possible seizure episode, the episode(s) was snw witnessed, none. Character of seizure(s): unknown, pt with long hx of epilepsy. Seizure onset: this morning. Context: the seizure(s) was witnessed, by no one, occurred at home, Contributing factors: missed recent doses of medications, pt states she dropped a prescription to [facility] 2 days ago. On speaking with Pharmacy, pt has not dropped off RX and no anticonvulsants have been filled since December 2017. Seizure Hx: Last seizure: The patient's last seizure "not sure", Seizure medications: phenytoin, Topamax, Epilepsy. EMS care: supplemental oxygen. Current symptoms: tearful, generalized pain. The patient has experienced similar episodes in the past, chronically. 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/A - Irregular menses rb1 Historical: - Allergies: 11:37 Ceclor; ss 11:37 Sulfa (Sulfonamide Antibiotics); ss - Home Meds: 11:00 atorvastatin 80 mg Oral tab 1 tab once daily [Active]; buspirone 5 mg Oral tab 1 tab 3 rb1 times per day [Active]; clonidine HCl 0.1 mg Oral tab 1 tab 3 times per day [Active]; Dilantin 100 mg Oral every 8 hours [Active]; folic acid 1 mg Oral tab 1 tab once daily [Active]; hydralazine 25 mg Oral tab 1 tab 4 times per day [Active]; Norvasc 5 mg Oral tab 1 tab once daily [Active]; topiramate 25 mg Oral tab 1 tabs 2 times per day [Active]; - PMHx: 11:37 ADD/ADHD; Anxiety; CVA; Hypertension; NSTEMI; right rotator cuff torn; Seizures; ss - PSHx: 11:00 Cholecystectomy; ; rb1 - Immunization history:: Adult Immunizations up to date. - Social history:: Smoking status: Patient uses tobacco products, smokes one pack cigarettes per day. - Ebola Screening: : Patient negative for fever greater than or equal to 101.5 degrees Fahrenheit, and additional compatible Ebola Virus Disease symptoms. ROS: 11:28 Eyes: Negative for injury, pain, redness, and discharge, ENT: Negative for injury, snw pain, and discharge, Neck: Negative for injury, pain, and swelling, Cardiovascular: Negative for chest pain, palpitations, and edema, Respiratory: Negative for shortness of breath, cough, wheezing, and pleuritic chest pain, Abdomen/GI: Negative for abdominal pain, nausea, vomiting, diarrhea, and constipation, Back: Negative for injury and pain, : Negative for injury, bleeding, discharge, and swelling, MS/Extremity: Negative for injury and deformity, Skin: Negative for injury, rash, and discoloration. 11:28 Constitutional: Positive for body aches. 11:28 Neuro: Positive for seizure activity. Exam: 11:28 Constitutional: This is a well developed, well nourished patient who is awake, alert, snw and in no acute distress. Tearful Head/Face: Normocephalic, atraumatic. Eyes: Pupils equal round and reactive to light, extra-ocular motions intact. Lids and lashes normal. Conjunctiva and sclera are non-icteric and not injected. Cornea within normal limits. Periorbital areas with no swelling, redness, or edema. ENT: Nares patent. No nasal discharge, no septal abnormalities noted. Tympanic membranes are normal and external auditory canals are clear. Oropharynx with no redness, swelling, or masses, exudates, or evidence of obstruction, uvula midline. Mucous membranes moist. Neck: Trachea midline, no thyromegaly or masses palpated, and no cervical lymphadenopathy. Supple, full range of motion without nuchal rigidity, or vertebral point tenderness. No Meningismus. Chest/axilla: Normal chest wall appearance and motion. Nontender with no deformity. No lesions are appreciated. Cardiovascular: Regular rate and rhythm with a normal S1 and S2. No gallops, murmurs, or rubs. Normal PMI, no JVD. No pulse deficits. Respiratory: Lungs have equal breath sounds bilaterally, clear to auscultation and percussion. No rales, rhonchi or wheezes noted. No increased work of breathing, no retractions or nasal flaring. Abdomen/GI: Soft, non-tender, with normal bowel sounds. No distension or tympany. No guarding or rebound. No evidence of tenderness throughout. Back: No spinal tenderness. No costovertebral tenderness. Full range of motion. Skin: Warm, dry with normal turgor. Normal color with no rashes, no lesions, and no evidence of cellulitis. MS/ Extremity: Pulses equal, no cyanosis. Neurovascular intact. Full, normal range of motion. Neuro: Awake and alert, GCS 15, oriented to person, place, time, and situation. Cranial nerves II-XII grossly intact. Motor strength 5/5 in all extremities. Sensory grossly intact. Cerebellar exam normal. Normal gait. Vital Signs: 11:00 BP 158 / 93; Pulse 96; Resp 22; Temp 98.2(O); Pulse Ox 96% on R/A; Weight 117.39 kg rb1 (M); Height 5 ft. 1 in. (154.94 cm) (R); Pain 9/10; 12:00 BP 154 / 86; Pulse 81; Resp 19; Pulse Ox 97% on R/A; rb1 13:00 BP 150 / 80; Pulse 75; Resp 17; Pulse Ox 96% on R/A; rb1 11:00 Body Mass Index 48.90 (117.39 kg, 154.94 cm) rb1 [place] Coma Score: 11:00 Eye Response: spontaneous(4). Verbal Response: oriented(5). Motor Response: obeys rb1 commands(6). Total: 15. MDM: 11:06 Patient medically screened. snw 11:35 Data reviewed: vital signs, nurses notes. Data interpreted: Pulse oximetry: on 2L(s) snw per nasal canula, is 98 %. Interpretation: normal. Counseling: I had a detailed discussion with the patient and/or guardian regarding: the historical points, exam findings, and any diagnostic results supporting the discharge/admit diagnosis, the need for outpatient follow up, to return to the emergency department if symptoms worsen or persist or if there are any questions or concerns that arise at home. Special discussion: Based on the patient's history, exam and DX evaluation, there is no indication for emergent intervention or inpatient TX. It is understood by the patient/guardian that if the SXs persist or worsen they need to return immediately for re-evaluation. Based on the history and exam findings, there is no indication for further emergent testing or inpatient evaluation. I discussed with the patient/guardian the need to see the neurologist for further evaluation of the symptoms. I discussed with the patient/guardian the need to see the primary care provider for further evaluation of the symptoms. 12:40 ED course: states increased pain to right shoulder. + ROM although painful, + painful snw arc, encouraged to f/u ortho. Administered Medications: 11:38 Drug: Dilantin 100 mg Route: PO; rb1 12:09 Follow up: Response: No adverse reaction rb1 12:09 Follow up: Response: No adverse reaction; Follow-up was done at 1209 but the computer rb1 keeps putting 1709 11:38 Drug: morphine 4 mg Route: IM; Site: right deltoid; rb1 14:50 Follow up: Follow up was done at 1209 but the computer keeps putting 1709. rb1 12:35 Drug: Topamax 25 mg Route: PO; rb1 13:00 Follow up: Response: No adverse reaction rb1 13:00 Follow up: Follow-up was on at 1300 but the computer keeps entering a different time. rb1 Disposition: 16:16 Co-signature as Attending Physician, Hank Collins MD I agree with the assessment and kdr plan of care. Disposition: 03/18/18 11:21 Discharged to Home. Impression: Epilepsy, unspecified, not intractable, without status epilepticus, Patient's other noncompliance with medication regimen. - Condition is Stable. - Discharge Instructions: Epilepsy. - Prescriptions for topiramate 25 mg Oral tablet - take 1 tablet by ORAL route 2 times per day in the morning and evening; 60 tablet. Dilantin Kapseal 100 mg Oral Capsule - take 1 capsule by ORAL route every 8 hours; 30 capsule. Diclofenac Sodium 75 mg Oral Tablet Sustained Release - take 1 tablet by ORAL route 2 times per day; 30 tablet. - Medication Reconciliation Form, Thank You Letter, Antibiotic Education, Prescription Opioid Use form. - Follow up: Private Physician; When: Tomorrow; Reason: Recheck today's complaints, Continuance of care, Re-evaluation by your physician. Follow up: Emergency Department; When: As needed; Reason: Worsening of condition. Signatures: Christin Duff RN RN aj Rittger, Kevin, MD MD kdr Julia Barrera, PROCESS DESIGNER-C PROCESS DESIGNER-Csnw Judith Wright, LELO RN ss Fela Deras, RN RN rb1 Corrections: (The following items were deleted from the chart) 13:11 11:21 03/18/2018 11:21 Discharged to Home. Impression: Epilepsy, unspecified, not aj intractable, without status epilepticus; Patient's other noncompliance with medication regimen. Condition is Stable. Forms are Medication Reconciliation Form, Thank You Letter, Antibiotic Education, Prescription Opioid Use. Follow up: Private Physician; When: Tomorrow; Reason: Recheck today's complaints, Continuance of care, Re-evaluation by your physician. Follow up: Emergency Department; When: As needed; Reason: Worsening of condition. snw
[2018-03-18] MEDS ORDERED: PHENYTOIN ER 100 MG CAP PO ONE (11:37)
[2018-03-18] MEDS ORDERED: MORPHINE 4 MG/ML SYR ONE (11:38)
[2018-03-18] MEDS ORDERED: TOPIRAMATE 25 MG TAB PO ONE (12:00)
--- NOTE | 2018-03-18 13:12 | ER ---
Nurse's Notes [facility] Name: Nelia Corley Age: 37 yrs Sex: Female : 1980 Arrival Date: 03/18/2018 Time: 11:05 Bed 13 Private MD: Diagnosis: Epilepsy, unspecified, not intractable, without status epilepticus;Patient's other noncompliance with medication regimen Presentation: 03/18 11:03 Presenting complaint: EMS states: PT reports she had a seizure. Did not take her ss seizure medications last night. Transition of care: patient was not received from another setting of care. Onset of symptoms was March 18, 2018. Risk Assessment: Do you want to hurt yourself or someone else? Patient reports no desire to harm self or others. Initial Sepsis Screen: Does the patient meet any 2 criteria? No. Patient's initial sepsis screen is negative. Does the patient have a suspected source of infection? No. Patient's initial sepsis screen is negative. Care prior to arrival: None. 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/A - Irregular menses rb1 Historical: - Allergies: 11:37 Ceclor; ss 11:37 Sulfa (Sulfonamide Antibiotics); ss - Home Meds: 11:00 atorvastatin 80 mg Oral tab 1 tab once daily [Active]; buspirone 5 mg Oral tab 1 tab 3 rb1 times per day [Active]; clonidine HCl 0.1 mg Oral tab 1 tab 3 times per day [Active]; Dilantin 100 mg Oral every 8 hours [Active]; folic acid 1 mg Oral tab 1 tab once daily [Active]; hydralazine 25 mg Oral tab 1 tab 4 times per day [Active]; Norvasc 5 mg Oral tab 1 tab once daily [Active]; topiramate 25 mg Oral tab 1 tabs 2 times per day [Active]; - PMHx: 11:37 ADD/ADHD; Anxiety; CVA; Hypertension; NSTEMI; right rotator cuff torn; Seizures; ss - PSHx: 11:00 Cholecystectomy; ; rb1 - Immunization history:: Adult Immunizations up to date. - Social history:: Smoking status: Patient uses tobacco products, smokes one pack cigarettes per day. - Ebola Screening: : Patient negative for fever greater than or equal to 101.5 degrees Fahrenheit, and additional compatible Ebola Virus Disease symptoms. Screenin:00 Abuse screen: Denies threats or abuse. Nutritional screening: No deficits noted. rb1 Tuberculosis screening: No symptoms or risk factors identified. Fall Risk No fall in past 12 months (0 pts). Secondary diagnosis (15 points) seizures, No IV (0 pts). Ambulatory Aid- None/Bed Rest/Nurse Assist (0 pts). Gait- Normal/Bed Rest/Wheelchair (0 pts) Mental Status- Oriented to own ability (0 pts). Total Babcock Fall Scale indicates No Risk (0-24 pts). Assessment: 11:00 General: Appears distressed, Behavior is crying, Denies fever. Pain: Complains of pain rb1 in generalized Pain currently is 9 out of 10 on a pain scale. Pain began 30 min ago. Neuro: Level of Consciousness is awake, alert, obeys commands, Oriented to person, place, time, situation. 11:00 Cardiovascular: Capillary refill < 3 seconds is brisk in bilateral fingers. rb1 Respiratory: Airway is patent Respiratory effort is even, unlabored, Respiratory pattern is regular, symmetrical. GI: No signs and/or symptoms were reported involving the gastrointestinal system. : No signs and/or symptoms were reported regarding the genitourinary system. Derm: Skin is pink, warm \T\ dry. Musculoskeletal: Range of motion: intact in all extremities. 12:00 Reassessment: Patient appears in no apparent distress at this time. No changes from rb1 previously documented assessment. 12:00 Reassessment: Pt. requested to speak with the provider before being discharged. rb1 Provider notified. 13:00 Reassessment: Patient appears in no apparent distress at this time. Patient and/or rb1 family updated on plan of care and expected duration. Pain level reassessed. Patient is alert, oriented x 3, equal unlabored respirations, skin warm/dry/pink. Vital Signs: 11:00 BP 158 / 93; Pulse 96; Resp 22; Temp 98.2(O); Pulse Ox 96% on R/A; Weight 117.39 kg rb1 (M); Height 5 ft. 1 in. (154.94 cm) (R); Pain 9/10; 12:00 BP 154 / 86; Pulse 81; Resp 19; Pulse Ox 97% on R/A; rb1 13:00 BP 150 / 80; Pulse 75; Resp 17; Pulse Ox 96% on R/A; rb1 11:00 Body Mass Index 48.90 (117.39 kg, 154.94 cm) rb1 [place] Coma Score: 11:00 Eye Response: spontaneous(4). Verbal Response: oriented(5). Motor Response: obeys rb1 commands(6). Total: 15. ED Course: 11:00 Patient has correct armband on for positive identification. Bed in low position. Call rb1 light in reach. Side rails up X2. lunchroom monitor on. Pulse ox on. NIBP on. Warm blanket given. 11:00 Seizure precautions initiated. rb1 11:05 Patient arrived in ED. ss 11:06 Julia Barrera FNP-C [facility]. snw 11:06 Hank Collins MD is Attending Physician. snw 11:07 Fela Deras, LELO is Primary Nurse. rb1 11:36 Triage completed. ss 11:37 Arm band placed on right wrist. ss 13:11 No provider procedures requiring assistance completed. Patient did not have IV access rb1 during this emergency room visit. Administered Medications: 11:38 Drug: Dilantin 100 mg Route: PO; rb1 12:09 Follow up: Response: No adverse reaction rb1 12:09 Follow up: Response: No adverse reaction; Follow-up was done at 1209 but the computer rb1 keeps putting 1709 11:38 Drug: morphine 4 mg Route: IM; Site: right deltoid; rb1 14:50 Follow up: Follow up was done at 1209 but the computer keeps putting 1709. rb1 12:35 Drug: Topamax 25 mg Route: PO; rb1 13:00 Follow up: Response: No adverse reaction rb1 13:00 Follow up: Follow-up was on at 1300 but the computer keeps entering a different time. rb1 Intake: Outcome: 11:21 Discharge ordered by . snw 13:11 Patient left the ED. aj 13:11 Discharged to home ambulatory, with family. rb1 13:11 Condition: stable 13:11 Discharge instructions given to patient, Instructed on discharge instructions, follow up and referral plans. medication usage, Demonstrated understanding of instructions, follow-up care, medications, Prescriptions given X 3. Signatures: Christin Duff RN RN aj Therrien, Shelly, FNP-C FNP-Csnw Judith Wright, RN RN ss Fela Deras, RN RN rb1
== END 2018-03-18 13:11 | disposition home or self-care (01) ==
LOC: ER 11:01
DX: G40.901 Epilepsy, unspecified, not intractable, with status epilepticus (principal); I10 Essential (primary) hypertension; F17.210 Nicotine dependence, cigarettes, uncomplicated; Z88.1 Allergy status to other antibiotic agents; Z88.2 Allergy status to sulfonamides; Z91.14 Patient's other noncompliance with medication regimen
CPT/HCPCS: 96372; 99284

== ENCOUNTER 2018-05-10 11:13 | Emergency (ER) | payer OTHER ==
--- OUTSIDE RECORDS SUMMARY | 2018-05-10 11:17 | XMS REPORT ---
:1980 [facility] Address [address] [place] [id number] Care Team Providers Name Role Phone MILAGRO [...] Range Comments ANTICARDIOLIPIN IGG ANTIBODY (BEAKER) (test rmsk=359) < GPL ANTICARDIOLIPIN IGM ANTIBODY (BEAKER) (test cbou=390) 0.6 MPL Anticardiolipin IgG Result Interpretation: NEG:<20 GPL; U/mlPOS:>/=20 GPL ;U/mlAnticardiolipinIgM Result Interpretation: NEG:<20 MPL; U/mlPOS:>/= 20 MPL;U/[id number] 19:19:00 Test Item Value Reference Range Comments HOMOCYSTEINE (BEAKER) (test lsuk=269) 19.1 umol/L 5.1-15.4 HEMOGLOBIN [id number] 16:55:00 Test Item Value Reference Range Comments HEMOGLOBIN A1C (BEAKER) (test tpjj=884) 5.1 % 4.3-6.1 TSH/FREE T4 IF [id number] 16:00:00 Test Item Value Reference Range Comments THYROID STIMULATING HORMONE (BEAKER) (test 1.64 uIU/mL 0.35-4.94 zktq=700) VITAMIN B12 AND [id number] 16:00:00 Test Item Value Reference Range Comments VITAMIN B12 (BEAKER) (test wjul=011) 241 pg/mL 213-816 FOLATE (BEAKER) (test edgh=918) 3.7 ng/mL >=7.0 Effective 07/08/2014: Folate Reference Range ChangeNew: >=7.0 Previous: & gt;=5.4SEDIMENTATION [id number] 15:57:00 Test Item Value Reference Range Comments SEDIMENTATION RATE, ERYTHROCYTE (BEAKER) (test 8 mm/HR 0-20 pptt=862) LIPID [id number] 15:32:00 Test Item Value Reference Range Comments TRIGLYCERIDES (BEAKER) (test pmlu=217) 98 mg/dL CHOLESTEROL (BEAKER) (test nwfo=311) 200 mg/dL HDL CHOLESTEROL (BEAKER) (test urid=759) 51 mg/dL LDL CHOLESTEROL CALCULATED (BEAKER) (test 129 mg/dL nzxe=882) Triglyceride Reference Range: Low Risk <150 Borderline 150- 199 High Risk 200-499 Very High Risk >=500Cholesterol Reference Range: Low Risk <200 Borderline 200-239 High Risk > 240HDL Cholesterol Reference Range: Low Risk >=60 High Risk <40LDL Cholesterol Reference Range: Optimal <100 Near Optimal 100-129 Borderline 130-159 High 160-189 Very High >=190C-REACTIVE [id number] 15:30:00 Test Item Value Reference Range Comments C-REACTIVE PROTEIN (BEAKER) (test zxfq=961) 2.96 mg/dL 0.00-0.50 CBC W/PLT COUNT & AUTO [id number] 15:05:00 Test Item Value Reference Range Comments WHITE BLOOD CELL COUNT (BEAKER) (test ptlv=662) 7.8 K/ L 4.0-10.0 RED BLOOD CELL COUNT (BEAKER) (test fizd=512) 5.50 M/ L 4.00-5.00 HEMOGLOBIN (BEAKER) (test egwv=840) 16.4 GM/DL 12.0-15.0 HEMATOCRIT (BEAKER) (test tyqn=018) 48.2 % 36.0-45.0 MEAN CORPUSCULAR VOLUME (BEAKER) (test vdjl=960) 87.7 fL 82.0-99.0 MEAN CORPUSCULAR HEMOGLOBIN (BEAKER) (test 29.8 pg 27.0-33.0 mkkj=064) MEAN CORPUSCULAR HEMOGLOBIN CONC (BEAKER) (test 34.0 GM/DL 32.0-36.0 gcxe=050) RED CELL DISTRIBUTION WIDTH (BEAKER) (test 15.3 % 10.3-14.2 dked=746) PLATELET COUNT (BEAKER) (test sxzx=138) 217 K/CU MM 150-430 MEAN PLATELET VOLUME (BEAKER) (test lxyk=288) 7.3 fL 6.5-10.5 NUCLEATED RED BLOOD CELLS (BEAKER) (test 0 /100 WBC 0-0 kdmy=317) NEUTROPHILS RELATIVE PERCENT (BEAKER) (test 67 % ifnk=164) LYMPHOCYTES RELATIVE PERCENT (BEAKER) (test 22 % bcsp=966) MONOCYTES RELATIVE PERCENT (BEAKER) (test 8 % zmiy=744) EOSINOPHILS RELATIVE PERCENT (BEAKER) (test 1 % ozrs=974) BASOPHILS RELATIVE PERCENT (BEAKER) (test 2 % qras=081) NEUTROPHILS ABSOLUTE COUNT (BEAKER) (test 5.25 K/ L 1.80-8.00 ehmx=043) LYMPHOCYTES ABSOLUTE COUNT (BEAKER) (test 1.68 K/ L 1.48-4.50 cowp=978) MONOCYTES ABSOLUTE COUNT (BEAKER) (test 0.65 K/ L 0.00-1.30 azta=264) EOSINOPHILS ABSOLUTE COUNT (BEAKER) (test 0.09 K/ L 0.00-0.50 odiz=209) BASOPHILS ABSOLUTE COUNT (BEAKER) (test 0.14 K/ L 0.00-0.20 yvpt=351) [id number] 07:34:00 Test Item Value Reference Range Comments MAGNESIUM (BEAKER) (test 2.0 mg/dL 1.6-2.6 Specimen slightly hemolyzed bzxc=179) BASIC METABOLIC [id number] 07:33:00 Test Item Value Reference Range Comments SODIUM (BEAKER) (test 136 meq/L 136-145 welb=711) POTASSIUM (BEAKER) (test 4.1 meq/L 3.5-5.1 uehu=138) CHLORIDE (BEAKER) (test 107 meq/L 98-107 wnkx=062) CO2 (BEAKER) (test 20 meq/L 22-29 yaey=899) BLOOD UREA NITROGEN 10 mg/dL 7-21 (BEAKER) (test hutb=122) CREATININE (BEAKER) (test 0.72 mg/dL 0.57-1.25 tzmk=391) GLUCOSE RANDOM (BEAKER) 84 mg/dL 70-105 (test euvd=643) CALCIUM (BEAKER) (test 8.3 mg/dL 8.4-10.2 uwaa=116) EGFR (BEAKER) (test 91 mL/min/1.73 sq m ESTIMATED GFR IS NOT mnjj=5386) ACCURATE CREATININE CLEARANCE IN PREDICTING GLOMERULAR FILTRATION RATE. ESTIMATED GFR IS NOT APPLICABLE FOR DIALYSIS PATIENTS. [id number] 07:27:00 Test Item Value Reference Range Comments MAGNESIUM (BEAKER) (test eayg=970) 1.7 mg/dL 1.6-2.6 SCREEN, [id number] 13:54:00 Test Item Value Reference Range Comments TEST URINE (BEAKER) (test stgp=380) Negative [id number] 02:55:00 Test Item Value Reference Range Comments MAGNESIUM (BEAKER) (test gnic=762) 1.8 mg/dL 1.6-2.6 PHENYTOIN LEVEL, [id number] 00:30:00 Test Item Value Reference Range Comments PHENYTOIN (DILANTIN) (BEAKER) (test tpgb=994) 7.3 ug/mL 10.0-20.0 HEPATIC FUNCTION [id number] 00:26:00 Test Item Value Reference Range Comments TOTAL PROTEIN (BEAKER) (test hpjc=909) 6.4 gm/dL 6.0-8.3 ALBUMIN (BEAKER) (test bsob=0608) 3.8 g/dL 3.5-5.0 BILIRUBIN TOTAL (BEAKER) (test jfzl=277) 0.4 mg/dL 0.2-1.2 BILIRUBIN DIRECT (BEAKER) (test hdxz=657) 0.2 mg/dL 0.1-0.5 ALKALINE PHOSPHATASE (BEAKER) (test eiij=793) 114 U/L 40-150 AST (SGOT) (BEAKER) (test ccjc=035) 16 U/L 5-34 ALT (SGPT) (BEAKER) (test eude=459) 20 U/L 6-55 BASIC METABOLIC [id number] 00:26:00 Test Item Value Reference Range Comments SODIUM (BEAKER) (test 138 meq/L 136-145 jwhs=574) POTASSIUM (BEAKER) (test 4.0 meq/L 3.5-5.1 ssjw=702) CHLORIDE (BEAKER) (test 109 meq/L 98-107 bxic=982) CO2 (BEAKER) (test 21 meq/L 22-29 xumm=962) BLOOD UREA NITROGEN 7 mg/dL 7-21 (BEAKER) (test xsrc=234) CREATININE (BEAKER) (test 0.74 mg/dL 0.57-1.25 mzgs=032) GLUCOSE RANDOM (BEAKER) 103 mg/dL 70-105 (test zzex=354) CALCIUM (BEAKER) (test 9.0 mg/dL 8.4-10.2 wxfy=319) EGFR (BEAKER) (test 88 mL/min/1.73 sq m ESTIMATED GFR IS NOT oano=0516) ACCURATE CREATININE CLEARANCE IN PREDICTING GLOMERULAR FILTRATION RATE. ESTIMATED GFR IS NOT APPLICABLE FOR DIALYSIS PATIENTS. [id number] 00:26:00 Test Item Value Reference Range Comments ALBUMIN (BEAKER) (test suds=5818) 3.8 g/dL 3.5-5.0 CBC W/PLT COUNT & AUTO [id number] 00:16:00 Test Item Value Reference Range Comments WHITE BLOOD CELL COUNT (BEAKER) (test qolk=130) 10.1 K/ L 4.0-10.0 RED BLOOD CELL COUNT (BEAKER) (test rktc=361) 5.45 M/ L 4.00-5.00 HEMOGLOBIN (BEAKER) (test jjqf=623) 15.5 GM/DL 12.0-15.0 HEMATOCRIT (BEAKER) (test hcvf=567) 48.8 % 36.0-45.0 MEAN CORPUSCULAR VOLUME (BEAKER) (test gxvx=513) 89.6 fL 82.0-99.0 MEAN CORPUSCULAR HEMOGLOBIN (BEAKER) (test 28.4 pg 27.0-33.0 mhxs=698) MEAN CORPUSCULAR HEMOGLOBIN CONC (BEAKER) (test 31.7 GM/DL 32.0-36.0 hhkq=491) RED CELL DISTRIBUTION WIDTH (BEAKER) (test 15.5 % 10.3-14.2 jcwm=540) PLATELET COUNT (BEAKER) (test pwrd=834) 260 K/CU MM 150-430 MEAN PLATELET VOLUME (BEAKER) (test zcxa=373) 7.7 fL 6.5-10.5 NUCLEATED RED BLOOD CELLS (BEAKER) (test 0 /100 WBC 0-0 wvka=580) NEUTROPHILS RELATIVE PERCENT (BEAKER) (test 83 % howk=947) LYMPHOCYTES RELATIVE PERCENT (BEAKER) (test 12 % jjer=524) MONOCYTES RELATIVE PERCENT (BEAKER) (test 4 % dhxg=455) EOSINOPHILS RELATIVE PERCENT (BEAKER) (test 0 % zkqh=814) BASOPHILS RELATIVE PERCENT (BEAKER) (test 0 % xkxz=210) NEUTROPHILS ABSOLUTE COUNT (BEAKER) (test 8.39 K/ L 1.80-8.00 zvlw=763) LYMPHOCYTES ABSOLUTE COUNT (BEAKER) (test 1.24 K/ L 1.48-4.50 xona=607) MONOCYTES ABSOLUTE COUNT (BEAKER) (test 0.40 K/ L 0.00-1.30 evuq=442) EOSINOPHILS ABSOLUTE COUNT (BEAKER) (test 0.03 K/ L 0.00-0.50 vtee=785) BASOPHILS ABSOLUTE COUNT (BEAKER) (test 0.03 K/ L 0.00-0.20 soqw=141) 0.00
--- OUTSIDE RECORDS SUMMARY | 2018-05-10 11:17 | XMS REPORT | Clinical Summary ---
:1980 [address] [facility] Address [address] [place] [address] Phone Care Team Providers Name Role Phone [...] Not on file Results Not on fileafter 05/09/2017
[2018-05-10] MEDS ORDERED: HYDROCODONE/APAP 10/325 TAB ONE (12:05)
--- NOTE | 2018-05-10 12:55 | RAD REPORT ---
EXAM DESCRIPTION: RAD - Shoulder Right 2 View - 05/10/2018 12:29 pm CLINICAL HISTORY: PAIN COMPARISON: Shoulder Right 2 View dated 02/10/2018 FINDINGS: AC joint degenerative changes are present, mild. No fracture or dislocation seen.
[2018-05-10] MEDS ORDERED: ONDANSETRON 4 MG (ODT) TAB ONE (13:07)
--- NOTE | 2018-05-10 13:16 | EDPHYS ---
Physician Documentation [facility] Name: Nelia Corley Age: 37 yrs Sex: Female : 1980 Arrival Date: 05/10/2018 Time: 11:17 Bed 8 Private MD: ED Physician Hank Collins HPI: 05/10 17:05 This 37 yrs old Female presents to ER via EMS with complaints of Probable kdr Seizure, Headache, Shoulder Pain. 17:05 The patient presents after having a single isolated seizure, that lasted an unknown kdr period of time, the episode(s) was witnessed. Character of seizure(s): Loss of consciousness: the patient experienced loss of consciousness, Motor activity: generalized, Incontinence: none, Apnea: the patient did not experience apnea. Seizure onset: just prior to arrival. Context: the seizure(s) was witnessed, by a bystander, occurred at home. Seizure Hx: it is unknown whether or not the patient has a previous seizure history, Original onset: longstanding. Associated injury: Right upper extremity: anterior aspect of right shoulder and posterior aspect of right shoulder, abrasion, contusion, laceration. 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 N/A - control method hj Historical: - Allergies: 11:24 Ceclor; iw 11:24 Sulfa (Sulfonamide Antibiotics); iw - Home Meds: 11:24 atorvastatin 80 mg Oral tab 1 tab once daily [Active]; buspirone 5 mg Oral tab 1 tab 3 iw times per day [Active]; clonidine HCl 0.1 mg Oral tab 1 tab 3 times per day [Active]; Dilantin 100 mg Oral every 8 hours [Active]; folic acid 1 mg Oral tab 1 tab once daily [Active]; hydralazine 25 mg Oral tab 1 tab 4 times per day [Active]; Norvasc 5 mg Oral tab 1 tab once daily [Active]; topiramate 25 mg Oral tab 1 tabs 2 times per day [Active]; - PMHx: 11:24 ADD/ADHD; Anxiety; CVA; Hypertension; NSTEMI; right rotator cuff torn; Seizures; iw - PSHx: 11:24 Cholecystectomy; ; iw - Immunization history:: Adult Immunizations up to date. - Ebola Screening: : Patient negative for fever greater than or equal to 101.5 degrees Fahrenheit, and additional compatible Ebola Virus Disease symptoms Patient denies exposure to infectious person Patient denies travel to an Ebola-affected area in the 21 days before illness onset No symptoms or risks identified at this time. - Social history:: Smoking status: Patient/guardian denies using tobacco, Patient/guardian denies using alcohol. ROS: 17:05 Constitutional: Negative for fever, chills, and weight loss, Eyes: Negative for injury, kdr pain, redness, and discharge, Neck: Negative for injury, pain, and swelling, Cardiovascular: Negative for chest pain, palpitations, and edema, Respiratory: Negative for shortness of breath, cough, wheezing, and pleuritic chest pain, Abdomen/GI: Negative for abdominal pain, nausea, vomiting, diarrhea, and constipation, Back: Negative for injury and pain, : Negative for injury, bleeding, discharge, and swelling, Skin: Negative for injury, rash, and discoloration, Neuro: Negative for headache, weakness, numbness, tingling, and seizure activity. Psych: Negative for depression, anxiety, suicide ideation, homicidal ideation, and hallucinations, Allergy/Immunology: Negative for hives, rash, and allergies, Endocrine: Negative for neck swelling, polydipsia, polyuria, polyphagia, and marked weight changes, Hematologic/Lymphatic: Negative for swollen nodes, abnormal bleeding, and unusual bruising. 17:05 MS/extremity: Positive for injury or acute deformity, decreased range of motion, pain, tenderness. Exam: 17:05 Constitutional: This is a well developed, well nourished patient who is awake, alert, kdr and in no acute distress. Head/Face: Normocephalic, atraumatic. Eyes: Pupils equal round and reactive to light, extra-ocular motions intact. Lids and lashes normal. Conjunctiva and sclera are non-icteric and not injected. Cornea within normal limits. Periorbital areas with no swelling, redness, or edema. Neck: Trachea midline, no thyromegaly or masses palpated, and no cervical lymphadenopathy. Supple, full range of motion without nuchal rigidity, or vertebral point tenderness. No Meningismus. Chest/axilla: Normal chest wall appearance and motion. Nontender with no deformity. No lesions are appreciated. Cardiovascular: Regular rate and rhythm with a normal S1 and S2. No gallops, murmurs, or rubs. Normal PMI, no JVD. No pulse deficits. Respiratory: Lungs have equal breath sounds bilaterally, clear to auscultation and percussion. No rales, rhonchi or wheezes noted. No increased work of breathing, no retractions or nasal flaring. Abdomen/GI: Soft, non-tender, with normal bowel sounds. No distension or tympany. No guarding or rebound. No evidence of tenderness throughout. Back: No spinal tenderness. No costovertebral tenderness. Full range of motion. Skin: Warm, dry with normal turgor. Normal color with no rashes, no lesions, and no evidence of cellulitis. Neuro: Awake and alert, GCS 15, oriented to person, place, time, and situation. Cranial nerves II-XII grossly intact. Motor strength 5/5 in all extremities. Sensory grossly intact. Cerebellar exam normal. Normal gait. Psych: Awake, alert, with orientation to person, place and time. Behavior, mood, and affect are within normal limits. 17:05 Musculoskeletal/extremity: ROM: limited active range of motion, limited passive range of motion, in the right arm. Vital Signs: 11:26 BP 154 / 108; Pulse 93; Resp 18; Temp 97.8(TE); Pulse Ox 95% on R/A; Weight 113.4 kg; hj Height 5 ft. 0 in. (152.40 cm); Pain 10/10; 12:30 BP 135 / 98; Pulse 80; Resp 18; Pulse Ox 100% on R/A; hj 11:26 Body Mass Index 48.82 (113.40 kg, 152.40 cm) [place] Coma Score: 11:24 Eye Response: spontaneous(4). Verbal Response: oriented(5). Motor Response: obeys commands(6). Total: 15. MDM: 13:15 Patient medically screened. kdr 17:05 Data reviewed: vital signs, nurses notes, lab test result(s), radiologic studies. kdr Counseling: I had a detailed discussion with the patient and/or guardian regarding: the historical points, exam findings, and any diagnostic results supporting the discharge/admit diagnosis, lab results, radiology results, the need for outpatient follow up. 05/10 11:51 Order name: Shoulder Right (2 View) XRAY; Complete Time: 13:02 kdr 05/10 13:00 Order name: EKG Electrocardiogram EDMS 05/10 13:13 Order name: Alon; Complete Time: 13:25 kdr Administered Medications: 11:57 Drug: [place] 10 mg-325 mg 1 tabs Route: PO; hj 13:00 Follow up: Response: Pain is decreased hj 13:02 Drug: Zofran 4 mg Route: PO; hj 13:03 Follow up: Response: No adverse reaction; Nausea is decreased hj Disposition: 05/10/18 13:15 Discharged to Home. Impression: Epilepsy and recurrent seizures, Pain in right shoulder. - Condition is Stable. - Discharge Instructions: Joint Pain, Musculoskeletal Pain, Shoulder Pain, Fayi-pc-Cywp, Seizure, Adult, Grut-nr-Nvkb. - Prescriptions for Tramadol 50 mg Oral Tablet - take 1 tablet by ORAL route every 8 hours as needed; 12 tablet. - Medication Reconciliation Form, Thank You Letter form. - Follow up: Private Physician; When: 1 - 2 days; Reason: If symptoms return, Further diagnostic work-up, Recheck today's complaints, Continuance of care, Re-evaluation by your physician. - Problem is an acute exacerbation. - Symptoms have improved. Signatures: Dispatcher [employer] EDSC Hank Collins MD MD kdr Sofi Perez, LELO RN Celio Jarvis RN RN Corrections: (The following items were deleted from the chart) 13:32 13:15 05/10/2018 13:15 Discharged to Home. Impression: Epilepsy and recurrent seizures; hj Pain in right shoulder. Condition is Stable. Forms are Medication Reconciliation Form, Thank You Letter, Antibiotic Education, Prescription Opioid Use. Follow up: Private Physician; When: 1 - 2 days; Reason: If symptoms return, Further diagnostic work-up, Recheck today's complaints, Continuance of care, Re-evaluation by your physician. Problem is an acute exacerbation. Symptoms have improved. kdr
--- NOTE | 2018-05-10 13:16 | ER ---
Nurse's Notes [facility] Name: Nelia Corley Age: 37 yrs Sex: Female : 1980 Arrival Date: 05/10/2018 Time: 11:17 Bed 8 Private MD: Diagnosis: Epilepsy and recurrent seizures;Pain in right shoulder Presentation: 05/10 11:20 Presenting complaint: Patient states: unwitnessed seizure at home, states she woke up iw lying on the kitchen floor, neighbor called 911, EMS states pt was sitting up on couch upon arrival A\T\OX3, +hx of seizures, pt crying, states she thinks she takes Dilantin every night when she takes her Tylenol PM, pt c/o right shoulder pain and headache. Transition of care: patient was not received from another setting of care. Onset of symptoms was May 10, 2018. Risk Assessment: Do you want to hurt yourself or someone else? Patient reports no desire to harm self or others. Initial Sepsis Screen: Does the patient meet any 2 criteria? No. Patient's initial sepsis screen is negative. Does the patient have a suspected source of infection? No. Patient's initial sepsis screen is negative. Care prior to arrival: None. 11:20 Method Of Arrival: EMS: [id number] iw 11:20 Acuity: JENNIFER 3 iw 11:23 Presenting complaint: EMS states: from home, was complaining of headache, reports hj seizure episode and R shoulder pain, A\T\O x4; BP- 180/100, 154/108; BGL- 158;. Transition of care: patient was not received from another setting of care. Onset of symptoms was May 10, 2018. Risk Assessment: Do you want to hurt yourself or someone else? Patient reports no desire to harm self or others. Initial Sepsis Screen: Does the patient meet any 2 criteria? No. Patient's initial sepsis screen is negative. Does the patient have a suspected source of infection? No. Patient's initial sepsis screen is negative. Care prior to arrival: None. 11:23 Method Of Arrival: EMS: [facility] hj 11:23 Acuity: JENNIFER 3 hj Triage Assessment: 11:24 General: Appears in no apparent distress. uncomfortable, Behavior is calm, cooperative, hj appropriate for age. Pain: Complains of pain in head. Neuro: Level of Consciousness is awake, alert, obeys commands, Oriented to person, place, time, situation, Appropriate for age. 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 hj Historical: - Allergies: 11:24 Ceclor; iw 11:24 Sulfa (Sulfonamide Antibiotics); iw - Home Meds: 11:24 atorvastatin 80 mg Oral tab 1 tab once daily [Active]; buspirone 5 mg Oral tab 1 tab 3 iw times per day [Active]; clonidine HCl 0.1 mg Oral tab 1 tab 3 times per day [Active]; Dilantin 100 mg Oral every 8 hours [Active]; folic acid 1 mg Oral tab 1 tab once daily [Active]; hydralazine 25 mg Oral tab 1 tab 4 times per day [Active]; Norvasc 5 mg Oral tab 1 tab once daily [Active]; topiramate 25 mg Oral tab 1 tabs 2 times per day [Active]; - PMHx: 11:24 ADD/ADHD; Anxiety; CVA; Hypertension; NSTEMI; right rotator cuff torn; Seizures; iw - PSHx: 11:24 Cholecystectomy; ; iw - Immunization history:: Adult Immunizations up to date. - Ebola Screening: : Patient negative for fever greater than or equal to 101.5 degrees Fahrenheit, and additional compatible Ebola Virus Disease symptoms Patient denies exposure to infectious person Patient denies travel to an Ebola-affected area in the 21 days before illness onset No symptoms or risks identified at this time. - Social history:: Smoking status: Patient/guardian denies using tobacco, Patient/guardian denies using alcohol. Screenin:25 Abuse screen: Denies threats or abuse. Denies injuries from another. Nutritional hj screening: No deficits noted. Tuberculosis screening: No symptoms or risk factors identified. Fall Risk None identified. Assessment: 11:43 General: Appears in no apparent distress. uncomfortable, Behavior is calm, cooperative, hj appropriate for age. Pain: Complains of pain in head. Neuro: Level of Consciousness is awake, alert, obeys commands, Oriented to person, place, time, situation, Appropriate for age. Cardiovascular: Capillary refill < 3 seconds Patient's skin is warm and dry. Respiratory: Airway is patent Respiratory effort is even, unlabored, Respiratory pattern is regular, symmetrical. GI: No signs and/or symptoms were reported involving the gastrointestinal system. : No signs and/or symptoms were reported regarding the genitourinary system. EENT: No signs and/or symptoms were reported regarding the EENT system. Derm: No signs and/or symptoms reported regarding the dermatologic system. Musculoskeletal: No signs and/or symptoms reported regarding the musculoskeletal system. 12:45 Reassessment: Patient and/or family updated on plan of care and expected duration. Pain hj level reassessed. Patient is alert, oriented x 3, equal unlabored respirations, skin warm/dry/pink. awaiting results;. 13:15 Reassessment: Patient and/or family updated on plan of care and expected duration. Pain hj level reassessed. Patient is alert, oriented x 3, equal unlabored respirations, skin warm/dry/pink. awaiting POC;. 13:31 Reassessment: pt called a friend to pick her up; to wait at the lobby;. hj Vital Signs: 11:26 BP 154 / 108; Pulse 93; Resp 18; Temp 97.8(TE); Pulse Ox 95% on R/A; Weight 113.4 kg; hj Height 5 ft. 0 in. (152.40 cm); Pain 10/10; 12:30 BP 135 / 98; Pulse 80; Resp 18; Pulse Ox 100% on R/A; hj 11:26 Body Mass Index 48.82 (113.40 kg, 152.40 cm) hj [place] Coma Score: 11:24 Eye Response: spontaneous(4). Verbal Response: oriented(5). Motor Response: obeys commands(6). Total: 15. ED Course: 11:17 Patient arrived in ED. iw 11:22 Celio Jarvis, RN is Primary Nurse. hj 11:23 Triage completed. iw 11:25 Arm band placed on right wrist. hj 11:26 Patient has correct armband on for positive identification. Bed in low position. Call light in reach. Side rails up X2. 11:26 Seizure precautions initiated. hj 11:28 EKG done, by dictaphone technician. reviewed by Hank Collins MD. at1 11:35 Hank Collins MD is Attending Physician. kdr 12:27 X-ray completed. Portable x-ray completed in exam room. Patient tolerated procedure ml well. 12:29 Shoulder Right (2 View) XRAY In Process Unspecified. EDMS 13:30 No provider procedures requiring assistance completed. Patient did not have IV access hj during this emergency room visit. Administered Medications: 11:57 Drug: [place] 10 mg-325 mg 1 tabs Route: PO; hj 13:00 Follow up: Response: Pain is decreased hj 13:02 Drug: Zofran 4 mg Route: PO; hj 13:03 Follow up: Response: No adverse reaction; Nausea is decreased Outcome: 13:15 Discharge ordered by . kdr 13:30 Discharged to home ambulatory. hj 13:30 Condition: stable 13:30 Discharge instructions given to patient, Instructed on discharge instructions, follow up and referral plans. medication usage, sling usage; Demonstrated understanding of instructions, follow-up care, medications, sling usage; Prescriptions given X 1. 13:32 Patient left the ED. Signatures: Dispatcher [employer] EDMS Hank Collins MD MD kdr Williams, Irene, RN Liat Medina Amanda, communication equipment repairer EKG Tat1 Celio Jarvis, RN RN
[2018-05-10 14:04] VITALS: TEMP 97.8
[2018-05-10 14:05] VITALS: BP 135/98; O2SAT 100
--- NOTE | 2018-05-11 06:56 | EKG ---
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
== END 2018-05-10 13:32 | disposition home or self-care (01) ==
LOC: ER 11:13
DX: M25.511 Pain in right shoulder (principal); I10 Essential (primary) hypertension; I25.2 Old myocardial infarction; F41.9 Anxiety disorder, unspecified; F90.9 Attention-deficit hyperactivity disorder, unspecified type; Z88.2 Allergy status to sulfonamides; Z88.8 Allergy status to other drugs, medicaments and biological substances
CPT/HCPCS: 93005; 99284

== ENCOUNTER 2018-05-18 10:48 | Emergency (ER) | payer OTHER ==
--- OUTSIDE RECORDS SUMMARY | 2018-05-18 10:50 | XMS REPORT ---
:1980 [facility] Address [address] [place] [id number] Care Team Providers Name Role Phone MILAGRO [...] Range Comments ANTICARDIOLIPIN IGG ANTIBODY (BEAKER) (test mkuo=221) < GPL ANTICARDIOLIPIN IGM ANTIBODY (BEAKER) (test gqqz=319) 0.6 MPL Anticardiolipin IgG Result Interpretation: NEG:<20 GPL; U/mlPOS:>/=20 GPL ;U/mlAnticardiolipinIgM Result Interpretation: NEG:<20 MPL; U/mlPOS:>/= 20 MPL;U/[id number] 19:19:00 Test Item Value Reference Range Comments HOMOCYSTEINE (BEAKER) (test qzgu=127) 19.1 umol/L 5.1-15.4 HEMOGLOBIN [id number] 16:55:00 Test Item Value Reference Range Comments HEMOGLOBIN A1C (BEAKER) (test akff=711) 5.1 % 4.3-6.1 TSH/FREE T4 IF [id number] 16:00:00 Test Item Value Reference Range Comments THYROID STIMULATING HORMONE (BEAKER) (test 1.64 uIU/mL 0.35-4.94 ftko=337) VITAMIN B12 AND [id number] 16:00:00 Test Item Value Reference Range Comments VITAMIN B12 (BEAKER) (test xabe=915) 241 pg/mL 213-816 FOLATE (BEAKER) (test lmov=634) 3.7 ng/mL >=7.0 Effective 07/08/2014: Folate Reference Range ChangeNew: >=7.0 Previous: & gt;=5.4SEDIMENTATION [id number] 15:57:00 Test Item Value Reference Range Comments SEDIMENTATION RATE, ERYTHROCYTE (BEAKER) (test 8 mm/HR 0-20 yhsl=201) LIPID [id number] 15:32:00 Test Item Value Reference Range Comments TRIGLYCERIDES (BEAKER) (test dqcl=135) 98 mg/dL CHOLESTEROL (BEAKER) (test exet=202) 200 mg/dL HDL CHOLESTEROL (BEAKER) (test anhy=802) 51 mg/dL LDL CHOLESTEROL CALCULATED (BEAKER) (test 129 mg/dL qbxz=550) Triglyceride Reference Range: Low Risk <150 Borderline 150- 199 High Risk 200-499 Very High Risk >=500Cholesterol Reference Range: Low Risk <200 Borderline 200-239 High Risk > 240HDL Cholesterol Reference Range: Low Risk >=60 High Risk <40LDL Cholesterol Reference Range: Optimal <100 Near Optimal 100-129 Borderline 130-159 High 160-189 Very High >=190C-REACTIVE [id number] 15:30:00 Test Item Value Reference Range Comments C-REACTIVE PROTEIN (BEAKER) (test rngi=081) 2.96 mg/dL 0.00-0.50 CBC W/PLT COUNT & AUTO [id number] 15:05:00 Test Item Value Reference Range Comments WHITE BLOOD CELL COUNT (BEAKER) (test hrby=810) 7.8 K/ L 4.0-10.0 RED BLOOD CELL COUNT (BEAKER) (test reqe=042) 5.50 M/ L 4.00-5.00 HEMOGLOBIN (BEAKER) (test ojfs=653) 16.4 GM/DL 12.0-15.0 HEMATOCRIT (BEAKER) (test pjwz=608) 48.2 % 36.0-45.0 MEAN CORPUSCULAR VOLUME (BEAKER) (test zdox=146) 87.7 fL 82.0-99.0 MEAN CORPUSCULAR HEMOGLOBIN (BEAKER) (test 29.8 pg 27.0-33.0 jrsb=293) MEAN CORPUSCULAR HEMOGLOBIN CONC (BEAKER) (test 34.0 GM/DL 32.0-36.0 isbn=964) RED CELL DISTRIBUTION WIDTH (BEAKER) (test 15.3 % 10.3-14.2 hejx=106) PLATELET COUNT (BEAKER) (test howk=015) 217 K/CU MM 150-430 MEAN PLATELET VOLUME (BEAKER) (test xowq=154) 7.3 fL 6.5-10.5 NUCLEATED RED BLOOD CELLS (BEAKER) (test 0 /100 WBC 0-0 arcr=551) NEUTROPHILS RELATIVE PERCENT (BEAKER) (test 67 % zyti=253) LYMPHOCYTES RELATIVE PERCENT (BEAKER) (test 22 % ybme=636) MONOCYTES RELATIVE PERCENT (BEAKER) (test 8 % nqzc=290) EOSINOPHILS RELATIVE PERCENT (BEAKER) (test 1 % mdqh=943) BASOPHILS RELATIVE PERCENT (BEAKER) (test 2 % fcjt=492) NEUTROPHILS ABSOLUTE COUNT (BEAKER) (test 5.25 K/ L 1.80-8.00 silf=143) LYMPHOCYTES ABSOLUTE COUNT (BEAKER) (test 1.68 K/ L 1.48-4.50 cpwt=832) MONOCYTES ABSOLUTE COUNT (BEAKER) (test 0.65 K/ L 0.00-1.30 manh=547) EOSINOPHILS ABSOLUTE COUNT (BEAKER) (test 0.09 K/ L 0.00-0.50 wsru=249) BASOPHILS ABSOLUTE COUNT (BEAKER) (test 0.14 K/ L 0.00-0.20 ztxf=175) [id number] 07:34:00 Test Item Value Reference Range Comments MAGNESIUM (BEAKER) (test 2.0 mg/dL 1.6-2.6 Specimen slightly hemolyzed vhzc=907) BASIC METABOLIC [id number] 07:33:00 Test Item Value Reference Range Comments SODIUM (BEAKER) (test 136 meq/L 136-145 ipss=042) POTASSIUM (BEAKER) (test 4.1 meq/L 3.5-5.1 csyt=022) CHLORIDE (BEAKER) (test 107 meq/L 98-107 jvwi=414) CO2 (BEAKER) (test 20 meq/L 22-29 rpay=818) BLOOD UREA NITROGEN 10 mg/dL 7-21 (BEAKER) (test ysas=762) CREATININE (BEAKER) (test 0.72 mg/dL 0.57-1.25 osdz=289) GLUCOSE RANDOM (BEAKER) 84 mg/dL 70-105 (test ufde=735) CALCIUM (BEAKER) (test 8.3 mg/dL 8.4-10.2 eqrh=242) EGFR (BEAKER) (test 91 mL/min/1.73 sq m ESTIMATED GFR IS NOT yvbu=1653) ACCURATE CREATININE CLEARANCE IN PREDICTING GLOMERULAR FILTRATION RATE. ESTIMATED GFR IS NOT APPLICABLE FOR DIALYSIS PATIENTS. [id number] 07:27:00 Test Item Value Reference Range Comments MAGNESIUM (BEAKER) (test lbbq=515) 1.7 mg/dL 1.6-2.6 SCREEN, [id number] 13:54:00 Test Item Value Reference Range Comments TEST URINE (BEAKER) (test wopu=617) Negative [id number] 02:55:00 Test Item Value Reference Range Comments MAGNESIUM (BEAKER) (test khoo=169) 1.8 mg/dL 1.6-2.6 PHENYTOIN LEVEL, [id number] 00:30:00 Test Item Value Reference Range Comments PHENYTOIN (DILANTIN) (BEAKER) (test cjuq=318) 7.3 ug/mL 10.0-20.0 HEPATIC FUNCTION [id number] 00:26:00 Test Item Value Reference Range Comments TOTAL PROTEIN (BEAKER) (test neys=766) 6.4 gm/dL 6.0-8.3 ALBUMIN (BEAKER) (test ngva=6424) 3.8 g/dL 3.5-5.0 BILIRUBIN TOTAL (BEAKER) (test yxdr=538) 0.4 mg/dL 0.2-1.2 BILIRUBIN DIRECT (BEAKER) (test qxrm=350) 0.2 mg/dL 0.1-0.5 ALKALINE PHOSPHATASE (BEAKER) (test giib=556) 114 U/L 40-150 AST (SGOT) (BEAKER) (test xlbk=455) 16 U/L 5-34 ALT (SGPT) (BEAKER) (test vcyn=861) 20 U/L 6-55 BASIC METABOLIC [id number] 00:26:00 Test Item Value Reference Range Comments SODIUM (BEAKER) (test 138 meq/L 136-145 oomr=431) POTASSIUM (BEAKER) (test 4.0 meq/L 3.5-5.1 guoi=361) CHLORIDE (BEAKER) (test 109 meq/L 98-107 kyng=406) CO2 (BEAKER) (test 21 meq/L 22-29 rcha=375) BLOOD UREA NITROGEN 7 mg/dL 7-21 (BEAKER) (test dbqy=565) CREATININE (BEAKER) (test 0.74 mg/dL 0.57-1.25 ansa=586) GLUCOSE RANDOM (BEAKER) 103 mg/dL 70-105 (test ctpl=028) CALCIUM (BEAKER) (test 9.0 mg/dL 8.4-10.2 ynew=909) EGFR (BEAKER) (test 88 mL/min/1.73 sq m ESTIMATED GFR IS NOT mxcn=7397) ACCURATE CREATININE CLEARANCE IN PREDICTING GLOMERULAR FILTRATION RATE. ESTIMATED GFR IS NOT APPLICABLE FOR DIALYSIS PATIENTS. [id number] 00:26:00 Test Item Value Reference Range Comments ALBUMIN (BEAKER) (test unfh=9857) 3.8 g/dL 3.5-5.0 CBC W/PLT COUNT & AUTO [id number] 00:16:00 Test Item Value Reference Range Comments WHITE BLOOD CELL COUNT (BEAKER) (test nvru=513) 10.1 K/ L 4.0-10.0 RED BLOOD CELL COUNT (BEAKER) (test lsbh=291) 5.45 M/ L 4.00-5.00 HEMOGLOBIN (BEAKER) (test dvgt=368) 15.5 GM/DL 12.0-15.0 HEMATOCRIT (BEAKER) (test wrfr=313) 48.8 % 36.0-45.0 MEAN CORPUSCULAR VOLUME (BEAKER) (test vick=000) 89.6 fL 82.0-99.0 MEAN CORPUSCULAR HEMOGLOBIN (BEAKER) (test 28.4 pg 27.0-33.0 qqfz=907) MEAN CORPUSCULAR HEMOGLOBIN CONC (BEAKER) (test 31.7 GM/DL 32.0-36.0 bhcp=602) RED CELL DISTRIBUTION WIDTH (BEAKER) (test 15.5 % 10.3-14.2 jsfe=913) PLATELET COUNT (BEAKER) (test dyff=204) 260 K/CU MM 150-430 MEAN PLATELET VOLUME (BEAKER) (test ohfh=397) 7.7 fL 6.5-10.5 NUCLEATED RED BLOOD CELLS (BEAKER) (test 0 /100 WBC 0-0 aefk=403) NEUTROPHILS RELATIVE PERCENT (BEAKER) (test 83 % xulq=884) LYMPHOCYTES RELATIVE PERCENT (BEAKER) (test 12 % dsox=820) MONOCYTES RELATIVE PERCENT (BEAKER) (test 4 % cyrl=920) EOSINOPHILS RELATIVE PERCENT (BEAKER) (test 0 % dtvz=894) BASOPHILS RELATIVE PERCENT (BEAKER) (test 0 % xxoq=799) NEUTROPHILS ABSOLUTE COUNT (BEAKER) (test 8.39 K/ L 1.80-8.00 anlx=388) LYMPHOCYTES ABSOLUTE COUNT (BEAKER) (test 1.24 K/ L 1.48-4.50 aiiv=408) MONOCYTES ABSOLUTE COUNT (BEAKER) (test 0.40 K/ L 0.00-1.30 btvs=164) EOSINOPHILS ABSOLUTE COUNT (BEAKER) (test 0.03 K/ L 0.00-0.50 rrhm=185) BASOPHILS ABSOLUTE COUNT (BEAKER) (test 0.03 K/ L 0.00-0.20 grpg=013) 0.00
--- OUTSIDE RECORDS SUMMARY | 2018-05-18 10:50 | XMS REPORT | Clinical Summary ---
:1980 Author Organization [facility] Address [address] [place] [address] Phone Care Team Providers Name Role Phone [...] Not on file Results Not on fileafter 05/17/2017
--- NOTE | 2018-05-18 11:21 | RAD REPORT ---
EXAM DESCRIPTION: CT - Head Brain Wo Cont - 05/18/2018 11:14 am CLINICAL HISTORY: Seizure COMPARISON: CT head February 2017, MRI February 2017 TECHNIQUE: Axial 5 mm thick images of the head were obtained without IV contrast. All CT scans are performed using dose optimization technique as appropriate and may include automated exposure control or mA/KV adjustment according to patient size. FINDINGS: No intracranial hemorrhage, mass, edema or shift of mid-line structures. No acute infarcti on changes seen. Small 8 mm area of diminished attenuation in the peripheral right cerebellum is unch anged from 2017 studies. This is not regarded as significant. Ventricles are normal. Mastoid air cells and visualized portions of the paranasal sinuses are clear. No acute bony findings. IMPRESSION: Negative non-contrast CT head examination for acute findings. No significant change from February 2017 imaging.
[2018-05-18 11:22] LABS: Absolute Monocytes 0.5 K/uL (0.1-1.3); Absolute Neutrophil 10.2 K/uL (1.8-8.0); Basophils % 0.4 % (0-1.3); Eosinophils % 0.8 % (0-4.4); Hematocrit 47.3 % (36.0-45.0); Lymphocytes % 8.3 % (15.3-44.8); MCH 30.1 pg (27.0-35.0); MCV 88.9 fL (80-100); MPV 8.2 fL (7.6-11.3); Monocytes % 4.1 % (3.3-12.3); RBC Red Blood Cell Count 5.32 M/uL (3.86-4.86)
[2018-05-18] MEDS ORDERED: NA CHLORIDE 0.9% 1,000 ML ONE (11:26)
[2018-05-18 11:31] LABS: BUN Blood Urea Nitrogen 7 mg/dL (7-18); Bicarbonate 27 mmol/L (21-32); Glucose Level 123 mg/dL (74-106); Phenytoin (Dilantin) Level 3.3 ug/mL (10.0-20.0); Potassium 3.7 mmol/L (3.5-5.1); Sodium Level 138 mmol/L (136-145)
--- NOTE | 2018-05-18 11:56 | RAD REPORT ---
EXAM DESCRIPTION: RAD - Humerus Right - 05/18/2018 11:23 am CLINICAL HISTORY: PAIN Fall. COMPARISON: Humerus Right dated 02/10/2018; Humerus Right dated 12/17/2016 FINDINGS: AC joint degenerative changes are present. No acute fracture or dislocation identified.
[2018-05-18] MEDS ORDERED: PHENYTOIN Inj 1,000 MG in NA CHLORIDE 0.9% 100 ML IV STA (12:23)
[2018-05-18 12:31] LABS: Blood Morphology Comment NOT SEEN (NOT SEEN); Platelet Estimate ADEQ
[2018-05-18 12:35] LABS: Urine Bacteria 20-50 /HPF (<20); Urine Mucus 1+ /HPF (NONE SEEN); Urine Trichomonas PRESENT (NONE SEEN)
[2018-05-18 12:36] LABS: Urine Culture Reflex Order REFLEXED
[2018-05-18 12:37] LABS: Barbiturates NEGATIVE (NEGATIVE); Benzodiazepines NEGATIVE (NEGATIVE); Cocaine NEGATIVE (NEGATIVE); METHAMPHETAM NEGATIVE (NEGATIVE); Methadone NEGATIVE (NEGATIVE); Opiates NEGATIVE (NEGATIVE); Phencyclidine NEGATIVE (NEGATIVE); THC Cannibis POSITIVE (NEGATIVE)
[2018-05-18] MEDS ORDERED: KETOROLAC 30 MG/ML INJ ONE (12:39)
[2018-05-18] MEDS ORDERED: ONDANSETRON 4 MG/2 ML VIAL ONE (12:40)
[2018-05-18 13:18] LABS: Urine Blood 3+ (NEG); Urine Glucose NEGATIVE (NEG); Urine Protein 2+ (NEG)
--- NOTE | 2018-05-18 13:51 | ER ---
Nurse's Notes [facility] Name: Nelia Corley Age: 37 yrs Sex: Female : 1980 Arrival Date: 05/18/2018 Time: 10:56 Bed 8 Private MD: Diagnosis: Epilepsy and recurrent seizures;Dehydration Presentation: 05/18 11:06 Presenting complaint: Patient states: I REMEMBER GOING TO BED LAST NIGHT WHEN MY KIDS ch DID, AND THAT'S ALL I REMEMBER. I WOKE UP ON THE FLOOR IN MY KITCHEN, COVERED IN POOP. I CLEANED MYSELF UP AND CALLED 911. I HAVE PAIN IN MY R SHOULDER, 10 OUT OF 10. IT HURTS SO BAD. EMS states: TONED OUT FOR FALL, PT WAS AWAKE AND ALERT, TALKING AND UPRIGHT WHEN WE GOT THERE. ORIENTED TO PERSON, IN ROUTE PT BECAME ORIENTED X4. WE WERE TONED OUT FOR SEIZURE ON THIS PT LAST WEEK. Transition of care: patient was not received from another setting of care. Onset of symptoms was May 18, 2018. Risk Assessment: Do you want to hurt yourself or someone else? Patient reports no desire to harm self or others. Initial Sepsis Screen: Does the patient meet any 2 criteria? No. Patient's initial sepsis screen is negative. Does the patient have a suspected source of infection? No. Patient's initial sepsis screen is negative. Care prior to arrival: None. 11:06 Method Of Arrival: EMS: [facility] 11:06 Acuity: JENNIFER 2 ch Triage Assessment: 11:11 General: Appears in no apparent distress. uncomfortable, obese, unkempt, Behavior is ch agitated, anxious, crying, fussy. Pain: Complains of pain in anterior aspect of right shoulder, right antecubital area, posterior aspect of right shoulder and right elbow Pain currently is 10 out of 10 on a pain scale. 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 Full function Speech is normal, Facial symmetry appears normal, Facial symmetry: tongue is midline, Pupils are PERRLA, Reports headache in entire SEIZURES AT HOME/SYNCOPE. PT REPORT FEELING THE WAY SHE DOES AFTER HER SEIZURES. . Respiratory: Airway is patent Respiratory effort is even, unlabored, Breath sounds are clear bilaterally. GI: No signs and/or symptoms were reported involving the gastrointestinal system. Abdomen is non-distended, obese, Bowel sounds present X 4 quads. Abd is soft and non tender X 4 quads. Derm: Skin is pink, warm \\T\\ dry. Musculoskeletal: Capillary refill < 3 seconds, in bilateral fingers. toes. Range of motion: limited in right shoulder NO DEFORMITYS NOTED Swelling absent. Historical: - Allergies: 11:11 Ceclor; ch 11:11 Sulfa (Sulfonamide Antibiotics); ch - Home Meds: 11:11 Phenytoin 100 MG EVERY 8 HOURS Oral [Active]; atorvastatin 80 mg Oral tab 1 tab once ch daily [Active]; topiramate 25 mg Oral tab 1 tabs 2 times per day [Active]; lisinopril 20 mg Oral tab 1 tab once daily [Active]; folic acid 1 mg Oral tab 1 tab once daily [Active]; Tylenol PM Extra Strength 25-500 mg oral tab 2 tabs once daily [Active]; amlodipine 5 mg tab 1 tab once daily [Active]; - PMHx: 11:11 ADD/ADHD; Anxiety; CVA; Hypertension; NSTEMI; right rotator cuff torn; Seizures; ch Hyperlipidemia; - PSHx: 11:11 Cholecystectomy; ; ch - Immunization history:: Adult Immunizations up to date, Last tetanus immunization: not indicated for visit today. Flu vaccine is not up to date. - Social history:: Smoking status: Patient uses tobacco products, smokes one pack cigarettes per day. Patient uses street drugs, marijuana, Patient/guardian denies using alcohol. - Family history:: not pertinent. - Ebola Screening: : Patient negative for fever greater than or equal to 101.5 degrees Fahrenheit, and additional compatible Ebola Virus Disease symptoms Patient denies exposure to infectious person Patient denies travel to an Ebola-affected area in the 21 days before illness onset No symptoms or risks identified at this time. - Hospitalizations: : No recent hospitalization is reported. Screenin:14 Abuse screen: Denies threats or abuse. Denies injuries from another. Nutritional ch screening: No deficits noted. Tuberculosis screening: No symptoms or risk factors identified. Fall Risk None identified. Assessment: 11:14 Reassessment: Patient appears in no apparent distress at this time. Patient and/or ch family updated on plan of care and expected duration. Pain level reassessed. Patient is alert, oriented x 3, equal unlabored respirations, skin warm/dry/pink. 11:47 Reassessment: Patient appears in no apparent distress at this time. PT AMBULATORY TO RESTROOM, NO S/S OF DISTRESS. GIAT STEADY, UPRIGHT, RESPS EVEN AND UNLABORED. 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 PT APPEARS VERY ANXIOUS IN ROOM. PT IS CRYING AND BEGGING FOR PAIN MEDICATION, ROCKING BACK AND FORTH. i TELL PT I WILL ASK FOR SOME TORDAL OR TYLENOL WHEN I HAVE A URINE SAMPLE FOR HER. PT REFUSES AND STATES SHE NEEDS SOME "GOOD MEDICINES." PT REQUESTS "REAL PAIN MEDICATIONS". 12:55 Reassessment: Patient appears in no apparent distress at this time. Patient and/or family updated on plan of care and expected duration. Pain level reassessed. i MEDICATE PT WITH RUBEN AND ZOFRAN. PT STATES THE IV NAIDU TOO BADLY. PT STARTS SCREAMING AT ME TO HURRY AND TAKE OUT THE IV. I REMOVE IV. PT THEN STATES SHE KNOWS SHE NEEDS ONE. I TRY TO REPLACE THE IV THREE TIMES, UNSUCCESSFULLY. PT BEGS ME TO KEEP TRYING. STATES SHE REALLY NEEDS PAIN MEDICATION, THERE MUST BE SOMETHING WRONG WITH HER ARM. I TELL PT X RAY RESULTS NEGATIVE. PT CONTINUES TO ASK ME TO TRY TO IV HER AGAIN. I TELL PT I NEED TO HAVE SOMEONE ELSE TRY. PT IS TEAFUL AND ASKS TO SPEAK WITH THE DOCTOR. 13:25 Reassessment: pt states she wants to go home and take her home medications if we wont give her IV "real pain medications." I educate pt that we do not give narcotics for seizures. pt states she doesn't know what medications we normally give her when she is here for pain, but that tordol, tylenol, and motrin dont work. pt insists she needs and IV, IV placed in her L foot. 13:35 Reassessment: phenotoin IV started in foot, pt states it hurts so much and she needs pain medications for it. we inform pt that she can have tylenol and motrin. pt states she wants to leave then, take out her IV, she will just go home and take her home medications. pt educated on possible seizures and that she needs to take her home medications as prescribed. pt verb understanding, states she wants to stop her care and go home if we wont give her "real pain medications." she states there is no point in coming to the hospital if she cannot get better pain meds. 13:45 Reassessment: Pt is refusing any further care. Dr. Harris notified. AMA form signed. ss Patient wheeled out to [facility] per request awaiting for her ride, Jake. Vital Signs: 11:00 BP 174 / 96; Pulse 112; Resp 28; Temp 98.8; Pulse Ox 100% on R/A; Weight 113.4 kg; ch Height 5 ft. 2 in. (157.48 cm); Pain 10/10; 11:47 BP 185 / 119; Pulse 92; Resp 24; Pulse Ox 99% on R/A; Pain 10/10; ch 12:55 BP 172 / 110; Pulse 88; Resp 22; Temp 99(O); Pulse Ox 99% on R/A; Pain 10/10; ch 11:00 Body Mass Index 45.73 (113.40 kg, 157.48 cm) ED Course: 10:56 Patient arrived in ED. rn 10:56 Chadd Harris MD is Attending Physician. rn 11:00 Arm band placed on left wrist. Patient placed in an exam room, on a stretcher, on property assessment monitor, on pulse oximetry. 11:05 Anayeli Lamb, RN is Primary Nurse. 11:08 Triage completed. 11:10 Inserted saline lock: 24 gauge in right hand, using aseptic technique. STARTED BY REGI Cavazos 11:14 CT Head Brain wo Cont In Process Unspecified. EDMS 11:14 No apparent distress. Resting quietly. ch 11:14 Patient has correct armband on for positive identification. Placed in gown. Bed in low ch position. Call light in reach. Side rails up X2. radiation monitor on. Pulse ox on. NIBP on. Warm blanket given. 11:14 No provider procedures requiring assistance completed. 11:21 X-ray completed. Patient tolerated procedure well. Patient moved back from radiology. ag1 11:23 XRAY Humerus RIGHT In Process Unspecified. EDMS 12:58 Missed attempt(s): 24 gauge in left in right hand. forearm. antecubital area. Bleeding ch controlled, band aid applied, catheter tip intact. IV discontinued, intact, bleeding controlled, No redness/swelling at site. Pressure dressing applied. 13:30 Inserted saline lock: 22 gauge in left ,using aseptic technique. foot. ch Administered Medications: 11:45 Drug: NS 0.9% 1000 ml Route: IV; Rate: 1000 ml; Site: right hand; 15:49 Follow up: IV Status: Order to discontinue infusion; Order to discontinue infusion, pt ch states she wants to AMA 12:40 Drug: Phenytoin 1 grams Route: IVPB; Site: right hand; 15:48 Follow up: IV Status: Order to discontinue infusion; Order to discontinue infusion, pt ch refuses medication,s tates it naidu too badly; IV Intake: 60ml 12:45 Drug: Zofran 4 mg Route: IVP; Site: right hand; 15:35 Follow up: Response: No adverse reaction; Marked relief of symptoms; Nausea is ch decreased; Vomiting decreased 12:45 Drug: TORadol 30 mg Route: IVP; Site: right hand; 13:00 Follow up: Response: No adverse reaction; No change in condition ch Intake: 15:48 IV: 60ml; Total: 60ml. Outcome: 13:47 AMA AMA form signed 13:47 unknown 13:47 Instructed on follow up and referral plans. Risks involved leaving AMA. condition unknown due to patient refusing any further interventions/ medications. 13:53 Patient left the ED. Signatures: Dispatcher [employer] Anayeli Sexton RN RN Chadd Harris MD MD rn Smirch, Shelby, RN RN Sanaz Moncada
--- NOTE | 2018-05-18 13:51 | EDPHYS ---
Physician Documentation [facility] Name: Nelia Corley Age: 37 yrs Sex: Female : 1980 Arrival Date: 05/18/2018 Time: 10:56 Bed 8 Private MD: ED Physician Chadd Harris HPI: 05/18 10:58 This 37 yrs old Female presents to ER via Unassigned with complaints of rn seizure. 10:58 The patient presents after having a single isolated seizure. Seizure onset: just prior rn to arrival. Associated injury: Right upper extremity: Other: pain. Current symptoms: confusion. The patient has experienced similar episodes in the past. REports took kids to school, was in kitchen, woke up on floor, had defecated on herself, right arm hurts, thinks had a seizure, unwitnessed, unsure if been taking dilantin, otherwise went to bed and woke up feeling fine. Reports darker urine than normal. . Historical: - Allergies: 11:11 Ceclor; ch 11:11 Sulfa (Sulfonamide Antibiotics); ch - Home Meds: 11:11 Phenytoin 100 MG EVERY 8 HOURS Oral [Active]; atorvastatin 80 mg Oral tab 1 tab once ch daily [Active]; topiramate 25 mg Oral tab 1 tabs 2 times per day [Active]; lisinopril 20 mg Oral tab 1 tab once daily [Active]; folic acid 1 mg Oral tab 1 tab once daily [Active]; Tylenol PM Extra Strength 25-500 mg oral tab 2 tabs once daily [Active]; amlodipine 5 mg tab 1 tab once daily [Active]; - PMHx: 11:11 ADD/ADHD; Anxiety; CVA; Hypertension; NSTEMI; right rotator cuff torn; Seizures; ch Hyperlipidemia; - PSHx: 11:11 Cholecystectomy; ; ch - Immunization history:: Adult Immunizations up to date, Last tetanus immunization: not indicated for visit today. Flu vaccine is not up to date. - Social history:: Smoking status: Patient uses tobacco products, smokes one pack cigarettes per day. Patient uses street drugs, marijuana, Patient/guardian denies using alcohol. - Family history:: not pertinent. - Ebola Screening: : Patient negative for fever greater than or equal to 101.5 degrees Fahrenheit, and additional compatible Ebola Virus Disease symptoms Patient denies exposure to infectious person Patient denies travel to an Ebola-affected area in the 21 days before illness onset No symptoms or risks identified at this time. - Hospitalizations: : No recent hospitalization is reported. ROS: 10:58 Constitutional: Negative for fever, chills, and weight loss, Eyes: Negative for injury, rn pain, redness, and discharge, Neck: Negative for injury, pain, and swelling, Cardiovascular: Negative for chest pain, palpitations, and edema, Respiratory: Negative for shortness of breath, cough, wheezing, and pleuritic chest pain, Abdomen/GI: Negative for abdominal pain, nausea, vomiting, diarrhea, and constipation, MS/Extremity: + right arm pain/shoulder Neuro: Negative for weakness, numbness, tingling Exam: 11:01 Constitutional: This is a well developed, well nourished patient who is awake, alert, rn crying, hyperventilating Head/Face: Normocephalic, atraumatic. Eyes: Pupils equal round and reactive to light, extra-ocular motions intact. Lids and lashes normal. Conjunctiva and sclera are non-icteric and not injected. Cornea within normal limits. Periorbital areas with no swelling, redness, or edema. Neck: Trachea midline, no thyromegaly or masses palpated, and no cervical lymphadenopathy. Supple, full range of motion without nuchal rigidity, or vertebral point tenderness. No Meningismus. Cardiovascular: Regular rate and rhythm with a normal S1 and S2. No gallops, murmurs, or rubs. Normal PMI, no JVD. No pulse deficits. Respiratory: + hyperventilation, clear bilateral breath sounds Abdomen/GI: Soft, non-tender, with normal bowel sounds. No distension or tympany. No guarding or rebound. No evidence of tenderness throughout. Skin: Warm, dry with normal turgor. Normal color with no rashes, no lesions, and no evidence of cellulitis. MS/ Extremity: + painful ROM right shoulder and proximal humerus, no ecchymosis, no crepitus, no signs of trauma. Neuro: Awake and alert, GCS 15, oriented to person, place, time, and situation. Cranial nerves II-XII grossly intact. Motor strength 5/5 in all extremities. Sensory grossly intact. Cerebellar exam normal. Vital Signs: 11:00 BP 174 / 96; Pulse 112; Resp 28; Temp 98.8; Pulse Ox 100% on R/A; Weight 113.4 kg; ch Height 5 ft. 2 in. (157.48 cm); Pain 10/10; 11:47 BP 185 / 119; Pulse 92; Resp 24; Pulse Ox 99% on R/A; Pain 10/10; ch 12:55 BP 172 / 110; Pulse 88; Resp 22; Temp 99(O); Pulse Ox 99% on R/A; Pain 10/10; ch 11:00 Body Mass Index 45.73 (113.40 kg, 157.48 cm) ch MDM: 10:56 Patient medically screened. rn 13:49 Differential diagnosis: drug overdose, cardiac arrhythmia, seizure. Data reviewed: rn vital signs, nurses notes, lab test result(s), EKG, radiologic studies, CT scan, and as a result, I will discharge patient. Counseling: I had a detailed discussion with the patient and/or guardian regarding: the historical points, exam findings, and any diagnostic results supporting the discharge/admit diagnosis, lab results, radiology results, the need for outpatient follow up, to return to the emergency department if symptoms worsen or persist or if there are any questions or concerns that arise at home. Medical screen evaluation completed. EMTALA emergency medical condition absent. Special discussion: I discussed with the patient/guardian in detail that at this point there is no indication for admission to the hospital. It is understood, however, that if the symptoms persist or worsen the patient needs to return immediately for re-evaluation. Based on the history and exam findings, there is no indication for further emergent testing or inpatient evaluation. I discussed with the patient/guardian the need to see the neurologist for further evaluation of the symptoms. ED course: Pt crying, demanding narcotic pain medication, states just needs something to sleep, neg xray and neg w/u except for subtherapeutic dilantin level, ordered dilantin and fluids, patient demanded IV pulled, then states she wants to go home, understands risks, signed out AMA, states wants to go home and sleep. . 05/18 10:57 Order name: CBC with Diff; Complete Time: 12:59 rn 05/18 10:57 Order name: Basic Metabolic Panel; Complete Time: 12:02 rn 05/18 10:57 Order name: Urine Drug Screen; Complete Time: 12:59 rn 05/18 10:57 Order name: Urine Microscopic Only; Complete Time: 12:59 rn 05/18 10:57 Order name: Dilantin; Complete Time: 12:02 rn 05/18 12:20 Order name: Urine Dipstick--Ancillary (enter results); Complete Time: 13:25 eb 05/18 10:57 Order name: XRAY Humerus RIGHT; Complete Time: 12:02 rn 05/18 11:00 Order name: CT Head Brain wo Cont; Complete Time: 12:02 rn 05/18 12:20 Order name: Urine --Ancillary (enter results); Complete Time: 13:25 eb 05/18 12:31 Order name: Manual Differential; Complete Time: 12:59 EDMS 05/18 12:38 Order name: Urine Culture EDWA 05/18 10:57 Order name: IV Start; Complete Time: 13:01 rn 05/18 10:57 Order name: Urine Test (obtain specimen); Complete Time: 13: rn 05/18 10:57 Order name: Urine Dipstick-Ancillary (obtain specimen); Complete Time: 13:01 rn Administered Medications: 11:45 Drug: NS 0.9% 1000 ml Route: IV; Rate: 1000 ml; Site: right hand; ch 15:49 Follow up: IV Status: Order to discontinue infusion; Order to discontinue infusion, pt ch states she wants to AMA 12:40 Drug: Phenytoin 1 grams Route: IVPB; Site: right hand; ch 15:48 Follow up: IV Status: Order to discontinue infusion; Order to discontinue infusion, pt ch refuses medication,s tates it reagan too badly; IV Intake: 60ml 12:45 Drug: Zofran 4 mg Route: IVP; Site: right hand; ch 15:35 Follow up: Response: No adverse reaction; Marked relief of symptoms; Nausea is ch decreased; Vomiting decreased 12:45 Drug: TORadol 30 mg Route: IVP; Site: right hand; ch 13:00 Follow up: Response: No adverse reaction; No change in condition ch Disposition: 05/18/18 13:51 Patient has left against medical advice. Impression: Epilepsy and recurrent seizures, Dehydration. - Patients states they are going to Home. - Condition is Stable. - Discharge Instructions: Dehydration, Adult, Seizure, Adult. SBAR form form. Follow up: Private Physician; When: As needed; Reason: Recheck today's complaints, Re-evaluation by your physician. - Problem is new. - Symptoms have improved. Signatures: Dispatcher [employer] Anayeli Sexton RN RN Chadd Harris MD MD rn Smirch, Shelby, RN RN ss Corrections: (The following items were deleted from the chart) 13:02 10:57 Accucheck ordered. gurdeep 13:53 13:51 05/18/2018 13:51 Patients has left against medical advice. Impression: Epilepsy ss and recurrent seizures; Dehydration. Patient states they are going to Home. Condition is Stable. Forms are SBAR form. Follow up: Private Physician; When: As needed; Reason: Recheck today's complaints, Re-evaluation by your physician. Problem is new. Symptoms have improved. rn
[2018-05-18 14:11] VITALS: O2SAT 99
[2018-05-18 14:12] VITALS: BP 172/110; TEMP 99
== END 2018-05-18 13:53 | disposition left against medical advice (07) ==
LOC: ER 10:48
DX: E86.0 Dehydration (principal); F17.210 Nicotine dependence, cigarettes, uncomplicated; I10 Essential (primary) hypertension; F41.9 Anxiety disorder, unspecified; E78.5 Hyperlipidemia, unspecified; F90.9 Attention-deficit hyperactivity disorder, unspecified type; Z88.2 Allergy status to sulfonamides; Z88.8 Allergy status to other drugs, medicaments and biological substances
CPT/HCPCS: 36415; 70450; 80048; 80185; 80307; 81003; 81015; 81025; 85025; 87086; 87088; 96361; 96365; 96366; 96375; 99284; J1165; J2405; J7030

== ENCOUNTER 2018-06-30 06:07 | Emergency (ER) | payer OTHER ==
--- OUTSIDE RECORDS SUMMARY | 2018-06-30 06:10 | XMS REPORT | Clinical Summary ---
:1980 Author Organization [facility] [employer] [facility] Address [address] [place] [address] Care Team Providers Name Role Phone Louie Primary Care Provider Allergies Active Allergy Reactions Severity Noted Date Comments Cefaclor 10/14/2016 Sulfa (Sulfonamide Antibiotics) 10/14/2016 Ketorolac 10/14/2016 Medications Medication Sig Dispensed Refills Start Date End Date Status phenytoin (DILANTIN) Take by mouth 3 0 Active 100 MG ER (three) times capsuleIndications: daily. epilepsy Active Problems Problem Noted Date Headache 10/14/2016 Seizure disorder 10/14/2016 Hypertensive urgency 10/14/2016 Social History Tobacco Use Types Packs/Day Years Used Date Never Assessed Sex Assigned at Date Recorded Not on file Job Start Date Occupation Industry Not on file Not on file Not on file Travel History Travel Start Travel End No recent travel history available. Last Filed Vital Signs Not on file Plan of Treatment Not on file Results Not on fileafter 06/29/2017 Insurance Payer Benefit Plan / Subscriber ID Type Phone Address Group MEDICAID - MEDICAID [facility] xxxxxxxxx Medicaid Contracted MGD CARE PLAN Advance Directives For more information, please contact:[facility] [employer] [id number] [place], [place] [phone] Code Status Date Activated Date Inactivated Comments Full Code 10/14/2016 3:43 PM 10/18/2016 2:41 AM This code status was determined by: Patient
--- OUTSIDE RECORDS SUMMARY | 2018-06-30 06:10 | XMS REPORT ---
:1980 [facility] Address [address] [place] [id number] Care Team Providers Name Role Phone MILAGRO [...] Range Comments ANTICARDIOLIPIN IGG ANTIBODY (BEAKER) (test qzei=617) < GPL ANTICARDIOLIPIN IGM ANTIBODY (BEAKER) (test rjgg=909) 0.6 MPL Anticardiolipin IgG Result Interpretation: NEG:<20 GPL; U/mlPOS:>/=20 GPL ;U/mlAnticardiolipinIgM Result Interpretation: NEG:<20 MPL; U/mlPOS:>/= 20 MPL;[id number] 19:19:00 Test Item Value Reference Range Comments HOMOCYSTEINE (BEAKER) (test shfv=157) 19.1 umol/L 5.1-15.4 HEMOGLOBIN [id number] 16:55:00 Test Item Value Reference Range Comments HEMOGLOBIN A1C (BEAKER) (test rtfx=900) 5.1 % 4.3-6.1 TSH/FREE T4 IF [id number] 16:00:00 Test Item Value Reference Range Comments THYROID STIMULATING HORMONE (BEAKER) (test 1.64 uIU/mL 0.35-4.94 uygo=115) VITAMIN B12 AND [id number] 16:00:00 Test Item Value Reference Range Comments VITAMIN B12 (BEAKER) (test rmse=022) 241 pg/mL 213-816 FOLATE (BEAKER) (test lxfe=627) 3.7 ng/mL >=7.0 Effective 07/08/2014: Folate Reference Range ChangeNew: >=7.0 Previous: & gt;=5.4SEDIMENTATION [id number] 15:57:00 Test Item Value Reference Range Comments SEDIMENTATION RATE, ERYTHROCYTE (BEAKER) (test 8 mm/HR 0-20 szfn=498) LIPID [id number] 15:32:00 Test Item Value Reference Range Comments TRIGLYCERIDES (BEAKER) (test ellz=039) 98 mg/dL CHOLESTEROL (BEAKER) (test qpnq=223) 200 mg/dL HDL CHOLESTEROL (BEAKER) (test yzgi=183) 51 mg/dL LDL CHOLESTEROL CALCULATED (BEAKER) (test 129 mg/dL scoo=828) Triglyceride Reference Range: Low Risk <150 Borderline 150- 199 High Risk 200-499 Very High Risk >=500Cholesterol Reference Range: Low Risk <200 Borderline 200-239 High Risk > 240HDL Cholesterol Reference Range: Low Risk >=60 High Risk <40LDL Cholesterol Reference Range: Optimal <100 Near Optimal 100-129 Borderline 130-159 High 160-189 Very High >=190C-REACTIVE [id number] 15:30:00 Test Item Value Reference Range Comments C-REACTIVE PROTEIN (BEAKER) (test nmuy=317) 2.96 mg/dL 0.00-0.50 CBC W/PLT COUNT & AUTO [id number] 15:05:00 Test Item Value Reference Range Comments WHITE BLOOD CELL COUNT (BEAKER) (test vckj=776) 7.8 K/ L 4.0-10.0 RED BLOOD CELL COUNT (BEAKER) (test tdgy=365) 5.50 M/ L 4.00-5.00 HEMOGLOBIN (BEAKER) (test dric=228) 16.4 GM/DL 12.0-15.0 HEMATOCRIT (BEAKER) (test tjuk=002) 48.2 % 36.0-45.0 MEAN CORPUSCULAR VOLUME (BEAKER) (test fiqa=563) 87.7 fL 82.0-99.0 MEAN CORPUSCULAR HEMOGLOBIN (BEAKER) (test 29.8 pg 27.0-33.0 vloz=583) MEAN CORPUSCULAR HEMOGLOBIN CONC (BEAKER) (test 34.0 GM/DL 32.0-36.0 yamd=745) RED CELL DISTRIBUTION WIDTH (BEAKER) (test 15.3 % 10.3-14.2 kxip=091) PLATELET COUNT (BEAKER) (test skce=355) 217 K/CU MM 150-430 MEAN PLATELET VOLUME (BEAKER) (test ibht=721) 7.3 fL 6.5-10.5 NUCLEATED RED BLOOD CELLS (BEAKER) (test 0 /100 WBC 0-0 zdfz=979) NEUTROPHILS RELATIVE PERCENT (BEAKER) (test 67 % xkpi=502) LYMPHOCYTES RELATIVE PERCENT (BEAKER) (test 22 % bovq=003) MONOCYTES RELATIVE PERCENT (BEAKER) (test 8 % getm=398) EOSINOPHILS RELATIVE PERCENT (BEAKER) (test 1 % jjid=837) BASOPHILS RELATIVE PERCENT (BEAKER) (test 2 % asfz=330) NEUTROPHILS ABSOLUTE COUNT (BEAKER) (test 5.25 K/ L 1.80-8.00 xier=464) LYMPHOCYTES ABSOLUTE COUNT (BEAKER) (test 1.68 K/ L 1.48-4.50 tkwk=684) MONOCYTES ABSOLUTE COUNT (BEAKER) (test 0.65 K/ L 0.00-1.30 grru=121) EOSINOPHILS ABSOLUTE COUNT (BEAKER) (test 0.09 K/ L 0.00-0.50 qdyw=613) BASOPHILS ABSOLUTE COUNT (BEAKER) (test 0.14 K/ L 0.00-0.20 bgps=382) [id number] 07:34:00 Test Item Value Reference Range Comments MAGNESIUM (BEAKER) (test 2.0 mg/dL 1.6-2.6 Specimen slightly hemolyzed gdor=666) BASIC METABOLIC [id number] 07:33:00 Test Item Value Reference Range Comments SODIUM (BEAKER) (test 136 meq/L 136-145 ryys=981) POTASSIUM (BEAKER) (test 4.1 meq/L 3.5-5.1 dwyg=630) CHLORIDE (BEAKER) (test 107 meq/L 98-107 twyd=875) CO2 (BEAKER) (test 20 meq/L 22-29 rdqg=877) BLOOD UREA NITROGEN 10 mg/dL 7-21 (BEAKER) (test qnsz=338) CREATININE (BEAKER) (test 0.72 mg/dL 0.57-1.25 wato=497) GLUCOSE RANDOM (BEAKER) 84 mg/dL 70-105 (test pmmn=211) CALCIUM (BEAKER) (test 8.3 mg/dL 8.4-10.2 xmes=665) EGFR (BEAKER) (test 91 mL/min/1.73 sq m ESTIMATED GFR IS NOT ztrg=8011) ACCURATE CREATININE CLEARANCE IN PREDICTING GLOMERULAR FILTRATION RATE. ESTIMATED GFR IS NOT APPLICABLE FOR DIALYSIS PATIENTS. [id number] 07:27:00 Test Item Value Reference Range Comments MAGNESIUM (BEAKER) (test wbac=274) 1.7 mg/dL 1.6-2.6 SCREEN, [id number] 13:54:00 Test Item Value Reference Range Comments TEST URINE (BEAKER) (test lyla=319) Negative [id number] 02:55:00 Test Item Value Reference Range Comments MAGNESIUM (BEAKER) (test zzfc=568) 1.8 mg/dL 1.6-2.6 PHENYTOIN LEVEL, [id number] 00:30:00 Test Item Value Reference Range Comments PHENYTOIN (DILANTIN) (BEAKER) (test qshy=235) 7.3 ug/mL 10.0-20.0 HEPATIC FUNCTION [id number] 00:26:00 Test Item Value Reference Range Comments TOTAL PROTEIN (BEAKER) (test ygep=921) 6.4 gm/dL 6.0-8.3 ALBUMIN (BEAKER) (test rgve=3685) 3.8 g/dL 3.5-5.0 BILIRUBIN TOTAL (BEAKER) (test cgym=061) 0.4 mg/dL 0.2-1.2 BILIRUBIN DIRECT (BEAKER) (test lptb=360) 0.2 mg/dL 0.1-0.5 ALKALINE PHOSPHATASE (BEAKER) (test hgdq=233) 114 U/L 40-150 AST (SGOT) (BEAKER) (test aepk=764) 16 U/L 5-34 ALT (SGPT) (BEAKER) (test czqc=606) 20 U/L 6-55 BASIC METABOLIC [id number] 00:26:00 Test Item Value Reference Range Comments SODIUM (BEAKER) (test 138 meq/L 136-145 rgkf=180) POTASSIUM (BEAKER) (test 4.0 meq/L 3.5-5.1 mmek=547) CHLORIDE (BEAKER) (test 109 meq/L 98-107 ofrj=000) CO2 (BEAKER) (test 21 meq/L 22-29 uhxa=477) BLOOD UREA NITROGEN 7 mg/dL 7-21 (BEAKER) (test kado=391) CREATININE (BEAKER) (test 0.74 mg/dL 0.57-1.25 torf=259) GLUCOSE RANDOM (BEAKER) 103 mg/dL 70-105 (test rwaz=858) CALCIUM (BEAKER) (test 9.0 mg/dL 8.4-10.2 bvva=614) EGFR (BEAKER) (test 88 mL/min/1.73 sq m ESTIMATED GFR IS NOT vqvc=6852) ACCURATE CREATININE CLEARANCE IN PREDICTING GLOMERULAR FILTRATION RATE. ESTIMATED GFR IS NOT APPLICABLE FOR DIALYSIS PATIENTS. [id number] 00:26:00 Test Item Value Reference Range Comments ALBUMIN (BEAKER) (test cktk=9303) 3.8 g/dL 3.5-5.0 CBC W/PLT COUNT & AUTO [id number] 00:16:00 Test Item Value Reference Range Comments WHITE BLOOD CELL COUNT (BEAKER) (test zhay=911) 10.1 K/ L 4.0-10.0 RED BLOOD CELL COUNT (BEAKER) (test vxcr=621) 5.45 M/ L 4.00-5.00 HEMOGLOBIN (BEAKER) (test pfyb=195) 15.5 GM/DL 12.0-15.0 HEMATOCRIT (BEAKER) (test eulz=791) 48.8 % 36.0-45.0 MEAN CORPUSCULAR VOLUME (BEAKER) (test eyez=011) 89.6 fL 82.0-99.0 MEAN CORPUSCULAR HEMOGLOBIN (BEAKER) (test 28.4 pg 27.0-33.0 pbhz=319) MEAN CORPUSCULAR HEMOGLOBIN CONC (BEAKER) (test 31.7 GM/DL 32.0-36.0 iufa=024) RED CELL DISTRIBUTION WIDTH (BEAKER) (test 15.5 % 10.3-14.2 jtnk=893) PLATELET COUNT (BEAKER) (test ihub=038) 260 K/CU MM 150-430 MEAN PLATELET VOLUME (BEAKER) (test rpxv=224) 7.7 fL 6.5-10.5 NUCLEATED RED BLOOD CELLS (BEAKER) (test 0 /100 WBC 0-0 inec=809) NEUTROPHILS RELATIVE PERCENT (BEAKER) (test 83 % zwig=005) LYMPHOCYTES RELATIVE PERCENT (BEAKER) (test 12 % rxqu=262) MONOCYTES RELATIVE PERCENT (BEAKER) (test 4 % qeun=510) EOSINOPHILS RELATIVE PERCENT (BEAKER) (test 0 % vflq=240) BASOPHILS RELATIVE PERCENT (BEAKER) (test 0 % kixy=089) NEUTROPHILS ABSOLUTE COUNT (BEAKER) (test 8.39 K/ L 1.80-8.00 acoj=860) LYMPHOCYTES ABSOLUTE COUNT (BEAKER) (test 1.24 K/ L 1.48-4.50 yszx=004) MONOCYTES ABSOLUTE COUNT (BEAKER) (test 0.40 K/ L 0.00-1.30 uoib=209) EOSINOPHILS ABSOLUTE COUNT (BEAKER) (test 0.03 K/ L 0.00-0.50 blne=361) BASOPHILS ABSOLUTE COUNT (BEAKER) (test 0.03 K/ L 0.00-0.20 mben=290) 0.00
[2018-06-30] MEDS ORDERED: LISINOPRIL 20 MG TAB ONE (07:04)
[2018-06-30] MEDS ORDERED: MORPHINE 4 MG/ML SYR ONE (07:04)
[2018-06-30] MEDS ORDERED: AMLODIPINE 5 MG TAB ONE (07:04)
[2018-06-30] MEDS ORDERED: ONDANSETRON 4 MG (ODT) TAB ONE (07:05)
[2018-06-30 07:35] LABS: Absolute Lymphocytes (CBC) 1.1 K/uL (0.7-4.9); Absolute Monocytes 0.7 K/uL (0.1-1.3); Absolute Neutrophil 11.9 K/uL (1.8-8.0); Basophils % 0.4 % (0-1.3); Hematocrit 45.8 % (36.0-45.0); Lymphocytes % 7.7 % (15.3-44.8); MCH 30.3 pg (27.0-35.0); MCV 89.1 fL (80-100); MPV 8.6 fL (7.6-11.3); RBC Red Blood Cell Count 5.14 M/uL (3.86-4.86)
[2018-06-30 07:47] LABS: Phenytoin (Dilantin) Level 0.9 ug/mL (10.0-20.0); Potassium 3.6 mmol/L (3.5-5.1)
--- NOTE | 2018-06-30 08:07 | ER ---
Nurse's Notes [facility] Name: Nelia Corley Age: 38 yrs Sex: Female : 1980 Arrival Date: 06/30/2018 Time: 06:10 Bed 17 Private MD: Diagnosis: Contusion of right shoulder;Epilepsy and recurrent seizures;Essential (primary) hypertension Presentation: 06/30 06:25 Presenting complaint: Patient states: I had a seizure at home. Last thing I remember jb4 was going to bed with my kid and then I woke up standing in the middle of my doorway with my head and shoulder hurting. Transition of care: patient was received from another setting of care (hospital). Onset of symptoms was June 30, 2018. Risk Assessment: Do you want to hurt yourself or someone else? Patient reports no desire to harm self or others. Initial Sepsis Screen: Does the patient meet any 2 criteria? No. Patient's initial sepsis screen is negative. Does the patient have a suspected source of infection? No. Patient's initial sepsis screen is negative. Care prior to arrival: None. 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 jb4 Historical: - Allergies: 06:23 Ceclor; jb4 06:23 Sulfa (Sulfonamide Antibiotics); jb4 - Home Meds: 06:23 amlodipine 5 mg tab 1 tab once daily [Active]; atorvastatin 80 mg Oral tab 1 tab once jb4 daily [Active]; folic acid 1 mg Oral tab 1 tab once daily [Active]; lisinopril 20 mg Oral tab 1 tab once daily [Active]; Phenytoin 100 MG EVERY 8 HOURS Oral [Active]; topiramate 25 mg Oral tab 1 tabs 2 times per day [Active]; Tylenol PM Extra Strength 25-500 mg Oral tab 2 tabs once daily [Active]; - PMHx: 06:23 ADD/ADHD; Anxiety; CVA; Hyperlipidemia; Hypertension; NSTEMI; right rotator cuff torn; jb4 Seizures; - PSHx: 06:23 Cholecystectomy; ; jb4 - Immunization history:: Adult Immunizations up to date. - Social history:: Smoking status: Patient uses tobacco products, smokes one-half pack cigarettes per day, Patient uses street drugs, marijuana. - Ebola Screening: : No symptoms or risks identified at this time. Screenin:40 Abuse screen: Denies threats or abuse. Nutritional screening: No deficits noted. jb4 Tuberculosis screening: No symptoms or risk factors identified. Fall Risk Secondary diagnosis (15 points) seizures, Total Babcock Fall Scale indicates No Risk (0-24 pts). Assessment: 06:38 General: Appears in no apparent distress. uncomfortable, Behavior is cooperative, jb4 appropriate for age, anxious. Pain: Complains of pain in posterior aspect of right shoulder, Headache. Pain does not radiate. Pain currently is 7 out of 10 on a pain scale. at worst was 10 out of 10 on a pain scale. Neuro: Level of Consciousness is awake, alert, obeys commands, Oriented to person, place, time, situation. Cardiovascular: Patient's skin is warm and dry. Respiratory: Airway is patent Respiratory effort is even, unlabored, Respiratory pattern is regular, symmetrical. GI: No signs and/or symptoms were reported involving the gastrointestinal system. : No signs and/or symptoms were reported regarding the genitourinary system. EENT: No signs and/or symptoms were reported regarding the EENT system. Derm: Skin is intact, Skin is pink, warm \T\ dry. abrasion noted to left elbow. Musculoskeletal: Circulation, motion, and sensation intact. Reports numbness in right arm pain in posterior aspect of right shoulder tingling in the right arm extending to right fingers. 07:30 Reassessment: Patient appears in no apparent distress at this time. Patient and/or em family updated on plan of care and expected duration. Pain level reassessed. Patient is alert, oriented x 3, equal unlabored respirations, skin warm/dry/pink. 08:07 Reassessment: Patient appears in no apparent distress at this time. Patient and/or em family updated on plan of care and expected duration. Pain level reassessed. Patient is alert, oriented x 3, equal unlabored respirations, skin warm/dry/pink. rates pain 5/10 Patient states feeling better. Vital Signs: 06:23 BP 190 / 133; Pulse 85; Resp 18; Temp 98.0; Pulse Ox 97% on R/A; Weight 113.4 kg (R); jb4 Height 5 ft. 2 in. (157.48 cm) (R); Pain 7/10; 07:31 BP 166 / 115; Pulse 97; Resp 21; Pulse Ox 98% on R/A; em 07:54 BP 174 / 95; Pulse 64; Resp 18; Pulse Ox 97% on R/A; Pain 5/10; em 06:23 Body Mass Index 45.73 (113.40 kg, 157.48 cm) jb4 Rhoda Coma Score: 06:23 Eye Response: spontaneous(4). Verbal Response: oriented(5). Motor Response: obeys jb4 commands(6). Total: 15. ED Course: 06:10 Patient arrived in ED. ag3 06:12 Gaurang Baldwin, RN is Primary Nurse. jb4 06:14 Drew Henderson PA is PHCP. jr8 06:14 Ajay Olivares MD is Attending Physician. jr8 06:23 Arm band placed on left wrist. jb4 06:27 Triage completed. jb4 06:44 Radiology exam delayed due to ED staff is currently attempting to insert an IV. Will kw1 advise CT when patient is ready to go for Head W/O exam. 06:57 CT Head Brain wo Cont In Process Unspecified. EDMS 06:58 CT completed. Patient tolerated procedure well. Patient moved back from CT. kw1 07:19 XRAY Shoulder RIGHT 2 view In Process Unspecified. EDMS 07:31 Patient has correct armband on for positive identification. Bed in low position. Call em light in reach. 07:31 Seizure precautions initiated. em 08:17 No provider procedures requiring assistance completed. Patient did not have IV access em during this emergency room visit. Administered Medications: 06:50 Not Given (Physician Discretion): fentaNYL (PF) 50 mcg IVP once jr8 06:50 Not Given (Physician Discretion): Zofran 4 mg IVP once; over 2 minutes jr8 06:51 Not Given (Physician Discretion): Enalaprilat 2.5 mg IV at calculated rate once; (slow jr8 IV push) 07:09 Drug: Zofran 4 mg Route: PO; em 07:52 Follow up: Response: No adverse reaction; Nausea is decreased em 07:14 Drug: morphine 4 mg Route: IM; Site: right deltoid; em 07:53 Follow up: Response: No adverse reaction; Pain is decreased em 07:14 Drug: amLODIPine 10 mg Route: PO; em 07:53 Follow up: Response: No adverse reaction; Blood pressure is lowered em 07:15 Drug: Lisinopril 20 mg Route: PO; em 07:53 Follow up: Response: No adverse reaction; Blood pressure is lowered em Outcome: 08:06 Discharge ordered by MD. zimmerman 08:18 Discharged to home ambulatory, with family. em 08:18 Condition: good 08:18 Discharge instructions given to patient, Instructed on discharge instructions, follow up and referral plans. no drinking with medication, no driving heavy equipment, medication usage, Demonstrated understanding of instructions, follow-up care, medications, Prescriptions given X 2. 08:19 Patient left the ED. em Signatures: Dispatcher [employer] EDMS Jerry Bey, CONSERVATION PLANNER CONSERVATION PLANNER em Drew Henderson PA PA jr8 Gaurang Baldwin, RN RN jb4 Merlene Kovacs kw1 Ivanna Ortiz 3
--- NOTE | 2018-06-30 08:07 | EDPHYS ---
Physician Documentation [facility] Name: Nelia Corley Age: 38 yrs Sex: Female : 1980 Arrival Date: 06/30/2018 Time: 06:10 Bed 17 Private MD: ED Physician Ajay Olivares HPI: 06/30 08:01 This 38 yrs old Female presents to ER via Wheelchair with complaints of jr8 Seizure. 08:01 Current symptoms: Currently, the patient is not experiencing any symptoms. The patient jr8 has experienced similar episodes in the past, several times. The patient has not recently seen a physician. Patient stated that she went to bed in her bed last night. Woke up on the floor in the hallway next to the front door. Had head pain and shoulder pain. Does not know what happened . 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 jb4 Historical: - Allergies: 06:23 Ceclor; jb4 06:23 Sulfa (Sulfonamide Antibiotics); jb4 - Home Meds: 06:23 amlodipine 5 mg tab 1 tab once daily [Active]; atorvastatin 80 mg Oral tab 1 tab once jb4 daily [Active]; folic acid 1 mg Oral tab 1 tab once daily [Active]; lisinopril 20 mg Oral tab 1 tab once daily [Active]; Phenytoin 100 MG EVERY 8 HOURS Oral [Active]; topiramate 25 mg Oral tab 1 tabs 2 times per day [Active]; Tylenol PM Extra Strength 25-500 mg Oral tab 2 tabs once daily [Active]; - PMHx: 06:23 ADD/ADHD; Anxiety; CVA; Hyperlipidemia; Hypertension; NSTEMI; right rotator cuff torn; jb4 Seizures; - PSHx: 06:23 Cholecystectomy; ; jb4 - Immunization history:: Adult Immunizations up to date. - Social history:: Smoking status: Patient uses tobacco products, smokes one-half pack cigarettes per day, Patient uses street drugs, marijuana. - Ebola Screening: : No symptoms or risks identified at this time. ROS: 08:01 Constitutional: Negative for fever, chills, and weight loss. jr8 08:01 MS/extremity: Positive for pain, tenderness, of the right shoulder. 08:01 Neuro: Positive for headache, loss of consciousness, seizure activity, Negative for altered mental status, dizziness, gait disturbance, hearing loss, loss of consciousness, numbness, speech changes, syncope, near syncope, tingling, tinnitus, tremor, visual changes, weakness. 08:01 All other systems are negative. Exam: 08:01 Head/Face: Normocephalic, atraumatic. Eyes: Pupils equal round and reactive to light, jr8 extra-ocular motions intact. Lids and lashes normal. Conjunctiva and sclera are non-icteric and not injected. Cornea within normal limits. Periorbital areas with no swelling, redness, or edema. ENT: Nares patent. No nasal discharge, no septal abnormalities noted. Tympanic membranes are normal and external auditory canals are clear. Oropharynx with no redness, swelling, or masses, exudates, or evidence of obstruction, uvula midline. Mucous membranes moist. Neck: Trachea midline, no thyromegaly or masses palpated, and no cervical lymphadenopathy. Supple, full range of motion without nuchal rigidity, or vertebral point tenderness. No Meningismus. Chest/axilla: Normal chest wall appearance and motion. Nontender with no deformity. No lesions are appreciated. Cardiovascular: Regular rate and rhythm with a normal S1 and S2. No gallops, murmurs, or rubs. Normal PMI, no JVD. No pulse deficits. Respiratory: Lungs have equal breath sounds bilaterally, clear to auscultation and percussion. No rales, rhonchi or wheezes noted. No increased work of breathing, no retractions or nasal flaring. Abdomen/GI: Soft, non-tender, with normal bowel sounds. No distension or tympany. No guarding or rebound. No evidence of tenderness throughout. Back: No spinal tenderness. No costovertebral tenderness. Full range of motion. Skin: Warm, dry with normal turgor. Normal color with no rashes, no lesions, and no evidence of cellulitis. Neuro: Awake and alert, GCS 15, oriented to person, place, time, and situation. Cranial nerves II-XII grossly intact. Motor strength 5/5 in all extremities. Sensory grossly intact. Cerebellar exam normal. Normal gait. 08:01 Musculoskeletal/extremity: Extremities: grossly normal except: noted in the right shoulder: pain, tenderness, to anterior right shoulder, ROM: intact in all extremities, Circulation is intact in all extremities. Sensation intact. Vital Signs: 06:23 BP 190 / 133; Pulse 85; Resp 18; Temp 98.0; Pulse Ox 97% on R/A; Weight 113.4 kg (R); jb4 Height 5 ft. 2 in. (157.48 cm) (R); Pain 7/10; 07:31 BP 166 / 115; Pulse 97; Resp 21; Pulse Ox 98% on R/A; em 07:54 BP 174 / 95; Pulse 64; Resp 18; Pulse Ox 97% on R/A; Pain 5/10; em 06:23 Body Mass Index 45.73 (113.40 kg, 157.48 cm) jb4 Masury Coma Score: 06:23 Eye Response: spontaneous(4). Verbal Response: oriented(5). Motor Response: obeys jb4 commands(6). Total: 15. MDM: 06:14 Patient medically screened. 08:01 Data reviewed: vital signs, nurses notes, lab test result(s), radiologic studies, CT jr8 scan, plain films. Data interpreted: Pulse oximetry: on room air is 97 %. Interpretation: normal. Counseling: I had a detailed discussion with the patient and/or guardian regarding: the historical points, exam findings, and any diagnostic results supporting the discharge/admit diagnosis, lab results, radiology results, the need for outpatient follow up, a family practitioner, a neurologist, to return to the emergency department if symptoms worsen or persist or if there are any questions or concerns that arise at home. Response to treatment: the patient's symptoms have markedly improved after treatment. 06/30 06:24 Order name: CBC with Diff; Complete Time: 07:55 06/30 06:24 Order name: Basic Metabolic Panel; Complete Time: 07:55 06/30 06:24 Order name: Dilantin; Complete Time: 07:55 06/30 06:25 Order name: XRAY Shoulder RIGHT 2 view 06/30 06:25 Order name: CT Head Brain wo Cont 06/30 06:24 Order name: IV; Complete Time: 08:11 Administered Medications: 06:50 Not Given (Physician Discretion): fentaNYL (PF) 50 mcg IVP once 8 06:50 Not Given (Physician Discretion): Zofran 4 mg IVP once; over 2 minutes jr8 06:51 Not Given (Physician Discretion): Enalaprilat 2.5 mg IV at calculated rate once; (slow jr8 IV push) 07:09 Drug: Zofran 4 mg Route: PO; em 07:52 Follow up: Response: No adverse reaction; Nausea is decreased em 07:14 Drug: morphine 4 mg Route: IM; Site: right deltoid; em 07:53 Follow up: Response: No adverse reaction; Pain is decreased em 07:14 Drug: amLODIPine 10 mg Route: PO; em 07:53 Follow up: Response: No adverse reaction; Blood pressure is lowered em 07:15 Drug: Lisinopril 20 mg Route: PO; em 07:53 Follow up: Response: No adverse reaction; Blood pressure is lowered em Disposition: 06/30/18 08:06 Discharged to Home. Impression: Contusion of right shoulder, Epilepsy and recurrent seizures, Essential (primary) hypertension. - Condition is Stable. - Discharge Instructions: Hypertension, Seizure, Adult, Shoulder Pain. - Prescriptions for Tylenol- Codeine #3 300-30 mg Oral Tablet - take 2 tablets by ORAL route every 6 hours As needed; 12 tablet. Dilantin Kapseal 100 mg Oral Capsule - take 1 capsule by ORAL route every 8 hours; 30 capsule. - Medication Reconciliation Form, Thank You Letter, Antibiotic Education, Prescription Opioid Use form. - Follow up: Private Physician; When: 2 - 3 days; Reason: Recheck today's complaints, Continuance of care, Re-evaluation by your physician. - Problem is new. - Symptoms have improved. Addendum: 07/02/2018 07:08 Co-signature as Attending Physician, Ajay Olivares MD I agree with the assessment and w a plan of care. Signatures: Dispatcher [employer] EDUT Jerry Bey, CAT SWAMPER CAT SWAMPER em Drew Henderson PA PA jr8 Gaurang Baldwin RN RN jb4 Ajay Olivares MD MD wa Corrections: (The following items were deleted from the chart) 06/30 08:19 08:06 06/30/2018 08:06 Discharged to Home. Impression: Contusion of right shoulder; em Epilepsy and recurrent seizures; Essential (primary) hypertension. Condition is Stable. Forms are Medication Reconciliation Form, Thank You Letter, Antibiotic Education, Prescription Opioid Use. Follow up: Private Physician; When: 2 - 3 days; Reason: Recheck today's complaints, Continuance of care, Re-evaluation by your physician. Problem is new. Symptoms have improved. jr8
[2018-06-30 08:26] VITALS: TEMP 98
[2018-06-30 08:28] VITALS: BP 174/95; O2SAT 97
--- NOTE | 2018-06-30 10:41 | RAD REPORT ---
EXAM DESCRIPTION: RAD - Shoulder Right 2 View - 06/30/2018 7:19 am CLINICAL HISTORY: Right shoulder pain status post fall FINDINGS: No fracture or dislocation is seen.
--- NOTE | 2018-06-30 11:07 | RAD REPORT ---
EXAM DESCRIPTION: CT - Head Brain Wo Cont - 06/30/2018 10:41 am CLINICAL HISTORY: Seizure COMPARISON: April 2018 TECHNIQUE: Computed axial tomography of the head was obtained. IV contrast was not requested. All CT scans are performed using dose optimization technique as appropriate and may include automated exposure control or mA/KV adjustment according to patient size. FINDINGS: An intracranial bleed is not seen . The ventricles are normal in caliber. No extra-axial fluid collection is noted. Small low-density area within the right cerebellum is uncha nged. It may represent an old infarct. Fluid within the sinuses/ mastoids is not seen. IMPRESSION: No acute intracranial abnormality is seen. If patient's symptoms persist MRI of the bra in would be recommended.
== END 2018-06-30 08:19 | disposition home or self-care (01) ==
LOC: ER 06:07
DX: G40.909 Epilepsy, unspecified, not intractable, without status epilepticus (principal); S40.011A Contusion of right shoulder, initial encounter; X58.XXXA Exposure to other specified factors, initial encounter; E78.5 Hyperlipidemia, unspecified; I10 Essential (primary) hypertension; I25.2 Old myocardial infarction; F41.9 Anxiety disorder, unspecified; F90.9 Attention-deficit hyperactivity disorder, unspecified type; F17.210 Nicotine dependence, cigarettes, uncomplicated; Z79.899 Other long term (current) drug therapy; Z86.73 Personal history of transient ischemic attack (TIA), and cerebral infarction without residual deficits
CPT/HCPCS: 36415; 70450; 80048; 80185; 85025; 96372; 99284

== ENCOUNTER 2018-06-30 13:52 | Emergency (ER) | payer OTHER ==
--- OUTSIDE RECORDS SUMMARY | 2018-06-30 13:54 | XMS REPORT ---
:1980 Author Organization [facility] Address [address] [place] [id number] Care Team Providers Name Role Phone MILAGRO [...] Range Comments ANTICARDIOLIPIN IGG ANTIBODY (BEAKER) (test racn=606) < GPL ANTICARDIOLIPIN IGM ANTIBODY (BEAKER) (test cjhh=503) 0.6 MPL Anticardiolipin IgG Result Interpretation: NEG:<20 GPL; U/mlPOS:>/=20 GPL ;U/mlAnticardiolipinIgM Result Interpretation: NEG:<20 MPL; U/mlPOS:>/= 20 MPL;U/[id number] 19:19:00 Test Item Value Reference Range Comments HOMOCYSTEINE (BEAKER) (test wuzo=730) 19.1 umol/L 5.1-15.4 HEMOGLOBIN [id number] 16:55:00 Test Item Value Reference Range Comments HEMOGLOBIN A1C (BEAKER) (test ylcw=637) 5.1 % 4.3-6.1 TSH/FREE T4 IF [id number] 16:00:00 Test Item Value Reference Range Comments THYROID STIMULATING HORMONE (BEAKER) (test 1.64 uIU/mL 0.35-4.94 hkpb=907) VITAMIN B12 AND [id number] 16:00:00 Test Item Value Reference Range Comments VITAMIN B12 (BEAKER) (test chav=073) 241 pg/mL 213-816 FOLATE (BEAKER) (test bldm=527) 3.7 ng/mL >=7.0 Effective 07/08/2014: Folate Reference Range ChangeNew: >=7.0 Previous: & gt;=5.4SEDIMENTATION [id number] 15:57:00 Test Item Value Reference Range Comments SEDIMENTATION RATE, ERYTHROCYTE (BEAKER) (test 8 mm/HR 0-20 cark=495) LIPID [id number] 15:32:00 Test Item Value Reference Range Comments TRIGLYCERIDES (BEAKER) (test aymm=542) 98 mg/dL CHOLESTEROL (BEAKER) (test llwc=646) 200 mg/dL HDL CHOLESTEROL (BEAKER) (test lsnc=839) 51 mg/dL LDL CHOLESTEROL CALCULATED (BEAKER) (test 129 mg/dL humz=618) Triglyceride Reference Range: Low Risk <150 Borderline 150- 199 High Risk 200-499 Very High Risk >=500Cholesterol Reference Range: Low Risk <200 Borderline 200-239 High Risk > 240HDL Cholesterol Reference Range: Low Risk >=60 High Risk <40LDL Cholesterol Reference Range: Optimal <100 Near Optimal 100-129 Borderline 130-159 High 160-189 Very High >=190C-REACTIVE [id number] 15:30:00 Test Item Value Reference Range Comments C-REACTIVE PROTEIN (BEAKER) (test bigw=747) 2.96 mg/dL 0.00-0.50 CBC W/PLT COUNT & AUTO [id number] 15:05:00 Test Item Value Reference Range Comments WHITE BLOOD CELL COUNT (BEAKER) (test rvqk=618) 7.8 K/ L 4.0-10.0 RED BLOOD CELL COUNT (BEAKER) (test mukg=036) 5.50 M/ L 4.00-5.00 HEMOGLOBIN (BEAKER) (test gdrt=064) 16.4 GM/DL 12.0-15.0 HEMATOCRIT (BEAKER) (test qjzb=680) 48.2 % 36.0-45.0 MEAN CORPUSCULAR VOLUME (BEAKER) (test rcca=308) 87.7 fL 82.0-99.0 MEAN CORPUSCULAR HEMOGLOBIN (BEAKER) (test 29.8 pg 27.0-33.0 bqwq=370) MEAN CORPUSCULAR HEMOGLOBIN CONC (BEAKER) (test 34.0 GM/DL 32.0-36.0 ukwk=773) RED CELL DISTRIBUTION WIDTH (BEAKER) (test 15.3 % 10.3-14.2 fxnt=900) PLATELET COUNT (BEAKER) (test kvrb=472) 217 K/CU MM 150-430 MEAN PLATELET VOLUME (BEAKER) (test zdrw=121) 7.3 fL 6.5-10.5 NUCLEATED RED BLOOD CELLS (BEAKER) (test 0 /100 WBC 0-0 heyv=564) NEUTROPHILS RELATIVE PERCENT (BEAKER) (test 67 % hxys=804) LYMPHOCYTES RELATIVE PERCENT (BEAKER) (test 22 % tyup=030) MONOCYTES RELATIVE PERCENT (BEAKER) (test 8 % thfe=227) EOSINOPHILS RELATIVE PERCENT (BEAKER) (test 1 % mjqn=409) BASOPHILS RELATIVE PERCENT (BEAKER) (test 2 % mdtx=374) NEUTROPHILS ABSOLUTE COUNT (BEAKER) (test 5.25 K/ L 1.80-8.00 izjh=281) LYMPHOCYTES ABSOLUTE COUNT (BEAKER) (test 1.68 K/ L 1.48-4.50 whpk=144) MONOCYTES ABSOLUTE COUNT (BEAKER) (test 0.65 K/ L 0.00-1.30 pess=263) EOSINOPHILS ABSOLUTE COUNT (BEAKER) (test 0.09 K/ L 0.00-0.50 kzot=302) BASOPHILS ABSOLUTE COUNT (BEAKER) (test 0.14 K/ L 0.00-0.20 yoml=950) [id number] 07:34:00 Test Item Value Reference Range Comments MAGNESIUM (BEAKER) (test 2.0 mg/dL 1.6-2.6 Specimen slightly hemolyzed cthx=195) BASIC METABOLIC [id number] 07:33:00 Test Item Value Reference Range Comments SODIUM (BEAKER) (test 136 meq/L 136-145 obhg=087) POTASSIUM (BEAKER) (test 4.1 meq/L 3.5-5.1 erap=391) CHLORIDE (BEAKER) (test 107 meq/L 98-107 odeg=538) CO2 (BEAKER) (test 20 meq/L 22-29 hpge=255) BLOOD UREA NITROGEN 10 mg/dL 7-21 (BEAKER) (test hlth=685) CREATININE (BEAKER) (test 0.72 mg/dL 0.57-1.25 pkzp=529) GLUCOSE RANDOM (BEAKER) 84 mg/dL 70-105 (test pffs=328) CALCIUM (BEAKER) (test 8.3 mg/dL 8.4-10.2 zole=337) EGFR (BEAKER) (test 91 mL/min/1.73 sq m ESTIMATED GFR IS NOT pxyg=8070) ACCURATE CREATININE CLEARANCE IN PREDICTING GLOMERULAR FILTRATION RATE. ESTIMATED GFR IS NOT APPLICABLE FOR DIALYSIS PATIENTS. [id number] 07:27:00 Test Item Value Reference Range Comments MAGNESIUM (BEAKER) (test oqnl=675) 1.7 mg/dL 1.6-2.6 SCREEN, [id number] 13:54:00 Test Item Value Reference Range Comments TEST URINE (BEAKER) (test icat=508) Negative [id number] 02:55:00 Test Item Value Reference Range Comments MAGNESIUM (BEAKER) (test wyzt=551) 1.8 mg/dL 1.6-2.6 PHENYTOIN LEVEL, [id number] 00:30:00 Test Item Value Reference Range Comments PHENYTOIN (DILANTIN) (BEAKER) (test dbjw=082) 7.3 ug/mL 10.0-20.0 HEPATIC FUNCTION [id number] 00:26:00 Test Item Value Reference Range Comments TOTAL PROTEIN (BEAKER) (test qvrw=061) 6.4 gm/dL 6.0-8.3 ALBUMIN (BEAKER) (test wxji=2845) 3.8 g/dL 3.5-5.0 BILIRUBIN TOTAL (BEAKER) (test bikh=688) 0.4 mg/dL 0.2-1.2 BILIRUBIN DIRECT (BEAKER) (test fuce=465) 0.2 mg/dL 0.1-0.5 ALKALINE PHOSPHATASE (BEAKER) (test jbrm=167) 114 U/L 40-150 AST (SGOT) (BEAKER) (test zugf=448) 16 U/L 5-34 ALT (SGPT) (BEAKER) (test jatj=091) 20 U/L 6-55 BASIC METABOLIC [id number] 00:26:00 Test Item Value Reference Range Comments SODIUM (BEAKER) (test 138 meq/L 136-145 kowq=353) POTASSIUM (BEAKER) (test 4.0 meq/L 3.5-5.1 glft=828) CHLORIDE (BEAKER) (test 109 meq/L 98-107 qihd=480) CO2 (BEAKER) (test 21 meq/L 22-29 zhun=849) BLOOD UREA NITROGEN 7 mg/dL 7-21 (BEAKER) (test iblf=994) CREATININE (BEAKER) (test 0.74 mg/dL 0.57-1.25 eunk=151) GLUCOSE RANDOM (BEAKER) 103 mg/dL 70-105 (test aeah=705) CALCIUM (BEAKER) (test 9.0 mg/dL 8.4-10.2 lqfu=027) EGFR (BEAKER) (test 88 mL/min/1.73 sq m ESTIMATED GFR IS NOT ujbj=8721) ACCURATE CREATININE CLEARANCE IN PREDICTING GLOMERULAR FILTRATION RATE. ESTIMATED GFR IS NOT APPLICABLE FOR DIALYSIS PATIENTS. [id number] 00:26:00 Test Item Value Reference Range Comments ALBUMIN (BEAKER) (test dbrr=0446) 3.8 g/dL 3.5-5.0 CBC W/PLT COUNT & AUTO [id number] 00:16:00 Test Item Value Reference Range Comments WHITE BLOOD CELL COUNT (BEAKER) (test yldw=304) 10.1 K/ L 4.0-10.0 RED BLOOD CELL COUNT (BEAKER) (test mtfl=748) 5.45 M/ L 4.00-5.00 HEMOGLOBIN (BEAKER) (test ssoe=998) 15.5 GM/DL 12.0-15.0 HEMATOCRIT (BEAKER) (test sxve=009) 48.8 % 36.0-45.0 MEAN CORPUSCULAR VOLUME (BEAKER) (test gjje=675) 89.6 fL 82.0-99.0 MEAN CORPUSCULAR HEMOGLOBIN (BEAKER) (test 28.4 pg 27.0-33.0 otvy=829) MEAN CORPUSCULAR HEMOGLOBIN CONC (BEAKER) (test 31.7 GM/DL 32.0-36.0 keny=604) RED CELL DISTRIBUTION WIDTH (BEAKER) (test 15.5 % 10.3-14.2 yfxx=318) PLATELET COUNT (BEAKER) (test rifq=081) 260 K/CU MM 150-430 MEAN PLATELET VOLUME (BEAKER) (test zzxs=362) 7.7 fL 6.5-10.5 NUCLEATED RED BLOOD CELLS (BEAKER) (test 0 /100 WBC 0-0 dzph=688) NEUTROPHILS RELATIVE PERCENT (BEAKER) (test 83 % rjvd=749) LYMPHOCYTES RELATIVE PERCENT (BEAKER) (test 12 % bpqd=119) MONOCYTES RELATIVE PERCENT (BEAKER) (test 4 % noxh=161) EOSINOPHILS RELATIVE PERCENT (BEAKER) (test 0 % dvbg=399) BASOPHILS RELATIVE PERCENT (BEAKER) (test 0 % imux=384) NEUTROPHILS ABSOLUTE COUNT (BEAKER) (test 8.39 K/ L 1.80-8.00 yqyc=975) LYMPHOCYTES ABSOLUTE COUNT (BEAKER) (test 1.24 K/ L 1.48-4.50 klpt=343) MONOCYTES ABSOLUTE COUNT (BEAKER) (test 0.40 K/ L 0.00-1.30 zlrq=476) EOSINOPHILS ABSOLUTE COUNT (BEAKER) (test 0.03 K/ L 0.00-0.50 nihy=330) BASOPHILS ABSOLUTE COUNT (BEAKER) (test 0.03 K/ L 0.00-0.20 icdq=485) 0.00
--- OUTSIDE RECORDS SUMMARY | 2018-06-30 13:54 | XMS REPORT | Clinical Summary ---
:1980 Author Organization [facility] Address [address] [place] [address] Care Team Providers Name Role Phone Louie [...] Type Phone Address Group MEDICAID - MEDICAID [facility] xxxxxxxxx Medicaid Contracted MGD CARE PLAN Advance Directives For more information, please contact:[facility] [employer] [id number] [place], [place] [phone] Code Status Date Activated Date Inactivated Comments Full Code 10/14/2016 3:43 PM 10/18/2016 2:41 AM This code status was determined by: Patient
[2018-06-30] MEDS ORDERED: PHENYTOIN ER 100 MG CAP PO ONE (15:14)
[2018-06-30] MEDS ORDERED: HYDROCODONE/APAP 10/325 TAB ONE (15:18)
[2018-06-30] MEDS ORDERED: ONDANSETRON 4 MG (ODT) TAB ONE (15:19)
--- NOTE | 2018-06-30 15:45 | ER ---
Nurse's Notes [facility] Name: Nelia Corley Age: 38 yrs Sex: Female : 1980 Arrival Date: 06/30/2018 Time: 13:57 Bed 28 Private MD: Diagnosis: Epilepsy and recurrent seizures Presentation: 06/30 14:22 Presenting complaint: Patient states: "I've had 2 seizures today". Pt c/o headache and aa5 phillip arm pain. Transition of care: patient was not received from another setting of care. Onset of symptoms was June 30, 2018. Risk Assessment: Do you want to hurt yourself or someone else? Patient reports no desire to harm self or others. Initial Sepsis Screen: Does the patient meet any 2 criteria? No. Patient's initial sepsis screen is negative. Does the patient have a suspected source of infection? No. Patient's initial sepsis screen is negative. Care prior to arrival: None. 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 aa5 Historical: - Allergies: 14:23 Ceclor; aa5 14:23 Sulfa (Sulfonamide Antibiotics); aa5 - Home Meds: 15:23 amlodipine 5 mg tab 1 tab once daily [Active]; atorvastatin 80 mg Oral tab 1 tab once mg2 daily [Active]; folic acid 1 mg Oral tab 1 tab once daily [Active]; lisinopril 20 mg Oral tab 1 tab once daily [Active]; Phenytoin 100 MG EVERY 8 HOURS Oral [Active]; topiramate 25 mg Oral tab 1 tabs 2 times per day [Active]; Tylenol PM Extra Strength 25-500 mg Oral tab 2 tabs once daily [Active]; - PMHx: 14:23 ADD/ADHD; Anxiety; CVA; Hyperlipidemia; Hypertension; NSTEMI; right rotator cuff torn; aa5 Seizures; - PSHx: 14:23 Cholecystectomy; ; aa5 - Immunization history:: Flu vaccine is up to date. - Social history:: Smoking status: Patient uses tobacco products, smokes one-half pack cigarettes per day. - Ebola Screening: : No symptoms or risks identified at this time. Screenin:21 Abuse screen: Denies threats or abuse. Denies injuries from another. Nutritional mg2 screening: No deficits noted. Tuberculosis screening: No symptoms or risk factors identified. Fall Risk Secondary diagnosis (15 points) seizures. Assessment: 15:20 General: Appears in no apparent distress. comfortable, Behavior is calm, cooperative. mg2 Pain: Complains of pain in head Pain does not radiate. Pain currently is 6 out of 10 on a pain scale. Quality of pain is described as aching. Neuro: Level of Consciousness is awake, alert, obeys commands, Oriented to person, place, time, situation, Reports headache. Cardiovascular: Capillary refill < 3 seconds Patient's skin is warm and dry. Respiratory: No deficits noted. GI: Reports nausea. : No deficits noted. EENT: No deficits noted. Derm: Skin is intact, is healthy with good turgor, Skin is pink, warm \\T\\ dry. normal. Musculoskeletal: No deficits noted. Vital Signs: 14:23 BP 162 / 117; Pulse 94; Resp 18 S; Temp 97.8(TE); Pulse Ox 97% on R/A; Weight 113.4 kg aa5 (R); Height 5 ft. 1 in. (154.94 cm) (R); Pain 10/10; 14:23 Body Mass Index 47.24 (113.40 kg, 154.94 cm) aa5 [place] Coma Score: 15:23 Eye Response: spontaneous(4). Verbal Response: oriented(5). Motor Response: obeys mg2 commands(6). Total: 15. ED Course: 13:57 Patient arrived in ED. mr 14:22 Triage completed. aa5 14:22 Arm band placed on. aa5 14:48 Aldo Azevedo MD is Attending Physician. gs 15:04 Carlo Johnson RN is Primary Nurse. mg2 15:21 Fall risk band placed. Side rails up X2. Seizure precautions initiated. procurement assistant mg2 on. Pulse ox on. NIBP on. Door closed. Warm blanket given. 15:21 No provider procedures requiring assistance completed. Patient did not have IV access mg2 during this emergency room visit. Administered Medications: 15:19 Drug: Zofran 4 mg Route: PO; mg2 16:04 Follow up: Response: No adverse reaction; Marked relief of symptoms mg2 15:19 Drug: Marshall 10 mg-325 mg 1 tabs Route: PO; mg2 16:03 Follow up: Response: No adverse reaction; Marked relief of symptoms mg2 15:20 Drug: Dilantin 500 mg Route: PO; mg2 16:04 Follow up: Response: No adverse reaction; Marked relief of symptoms mg2 Outcome: 15:44 Discharge ordered by . jazz 16:04 Discharged to home ambulatory. mg2 16:04 Condition: stable 16:04 Discharge instructions given to patient, Instructed on discharge instructions, follow up and referral plans. no drinking with medication, Demonstrated understanding of instructions, follow-up care, medications, Prescriptions given X 2. 16:05 Patient left the ED. mg2 Signatures: Catie RomeroderHina lucas, RN RN aa5 Aldo Azevedo MD MD gs Gardose, Michele, RN RN mg2
--- NOTE | 2018-06-30 15:45 | EDPHYS ---
Physician Documentation [facility] Name: Nelia Corley Age: 38 yrs Sex: Female : 1980 Arrival Date: 06/30/2018 Time: 13:57 Bed 28 Private MD: ED Physician Aldo Azevedo HPI: 06/30 15:35 This 38 yrs old Female presents to ER via Ambulatory with complaints of gs Probable Seizure. 15:35 Seizure onset: this morning. Associated injury: The patient did not suffer any apparent gs associated injury. Current symptoms: Currently, the patient is not experiencing any symptoms. The patient has experienced similar episodes in the past, a few times. The patient has been recently seen at the [facility] Emergency Department, today. says had another sz and couldn't keep down dilantin when she took it. 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 aa5 Historical: - Allergies: 14:23 Ceclor; aa5 14:23 Sulfa (Sulfonamide Antibiotics); aa5 - Home Meds: 15:23 amlodipine 5 mg tab 1 tab once daily [Active]; atorvastatin 80 mg Oral tab 1 tab once mg2 daily [Active]; folic acid 1 mg Oral tab 1 tab once daily [Active]; lisinopril 20 mg Oral tab 1 tab once daily [Active]; Phenytoin 100 MG EVERY 8 HOURS Oral [Active]; topiramate 25 mg Oral tab 1 tabs 2 times per day [Active]; Tylenol PM Extra Strength 25-500 mg Oral tab 2 tabs once daily [Active]; - PMHx: 14:23 ADD/ADHD; Anxiety; CVA; Hyperlipidemia; Hypertension; NSTEMI; right rotator cuff torn; aa5 Seizures; - PSHx: 14:23 Cholecystectomy; ; aa5 - Immunization history:: Flu vaccine is up to date. - Social history:: Smoking status: Patient uses tobacco products, smokes one-half pack cigarettes per day. - Ebola Screening: : No symptoms or risks identified at this time. ROS: 15:35 All other systems are negative. gs Exam: 15:35 Head/Face: Normocephalic, atraumatic. Eyes: Pupils equal round and reactive to light, gs extra-ocular motions intact. Lids and lashes normal. Conjunctiva and sclera are non-icteric and not injected. Cornea within normal limits. Periorbital areas with no swelling, redness, or edema. ENT: Nares patent. No nasal discharge, no septal abnormalities noted. Tympanic membranes are normal and external auditory canals are clear. Oropharynx with no redness, swelling, or masses, exudates, or evidence of obstruction, uvula midline. Mucous membranes moist. Neck: Trachea midline, no thyromegaly or masses palpated, and no cervical lymphadenopathy. Supple, full range of motion without nuchal rigidity, or vertebral point tenderness. No Meningismus. Chest/axilla: Normal chest wall appearance and motion. Nontender with no deformity. No lesions are appreciated. Cardiovascular: Regular rate and rhythm with a normal S1 and S2. No gallops, murmurs, or rubs. Normal PMI, no JVD. No pulse deficits. Respiratory: Lungs have equal breath sounds bilaterally, clear to auscultation and percussion. No rales, rhonchi or wheezes noted. No increased work of breathing, no retractions or nasal flaring. Abdomen/GI: Soft, non-tender, with normal bowel sounds. No distension or tympany. No guarding or rebound. No evidence of tenderness throughout. Back: No spinal tenderness. No costovertebral tenderness. Full range of motion. Skin: Warm, dry with normal turgor. Normal color with no rashes, no lesions, and no evidence of cellulitis. Neuro: Awake and alert, GCS 15, oriented to person, place, time, and situation. Cranial nerves II-XII grossly intact. Motor strength 5/5 in all extremities. Sensory grossly intact. Cerebellar exam normal. Normal gait. 15:35 Constitutional: The patient appears alert, awake. 15:35 Musculoskeletal/extremity: Circulation is intact in all extremities. Sensation intact. Joints: the left shoulder and right shoulder displays tenderness, full rom. Vital Signs: 14:23 BP 162 / 117; Pulse 94; Resp 18 S; Temp 97.8(TE); Pulse Ox 97% on R/A; Weight 113.4 kg aa5 (R); Height 5 ft. 1 in. (154.94 cm) (R); Pain 10/10; 14:23 Body Mass Index 47.24 (113.40 kg, 154.94 cm) aa5 [place] Coma Score: 15:23 Eye Response: spontaneous(4). Verbal Response: oriented(5). Motor Response: obeys mg2 commands(6). Total: 15. MDM: 14:59 Patient medically screened. 15:35 Differential diagnosis: seizure. Data reviewed: vital signs, nurses notes. Response to treatment: the patient's symptoms have markedly improved after treatment, kept meds down will discharge, and as a result, I will discharge patient. Administered Medications: 15:19 Drug: Zofran 4 mg Route: PO; mg2 16:04 Follow up: Response: No adverse reaction; Marked relief of symptoms mg2 15:19 Drug: Lebeau 10 mg-325 mg 1 tabs Route: PO; mg2 16:03 Follow up: Response: No adverse reaction; Marked relief of symptoms mg2 15:20 Drug: Dilantin 500 mg Route: PO; mg2 16:04 Follow up: Response: No adverse reaction; Marked relief of symptoms mg2 Disposition: 06/30/18 15:44 Discharged to Home. Impression: Epilepsy and recurrent seizures. - Condition is Stable. - Discharge Instructions: Seizure, Adult. - Prescriptions for Topamax 25 mg Oral tablet - take 1 tablet by ORAL route 2 times per day in the morning and evening; 30 tablet. Zofran 4 mg Oral Tablet - take 1 tablet by ORAL route every 12 hours As needed; 6 tablet. - Medication Reconciliation Form, Thank You Letter, Antibiotic Education, Prescription Opioid Use form. - Follow up: Private Physician; When: 2 - 3 days; Reason: Re-evaluation by your physician. Signatures: Hina Zambrano RN RN aa5 Aldo Azevedo MD MD Carlo Johnson RN RN mg2 Corrections: (The following items were deleted from the chart) 16:05 15:44 06/30/2018 15:44 Discharged to Home. Impression: Epilepsy and recurrent seizures. mg2 Condition is Stable. Forms are Medication Reconciliation Form, Thank You Letter, Antibiotic Education, Prescription Opioid Use. Follow up: Private Physician; When: 2 - 3 days; Reason: Re-evaluation by your physician. gs
[2018-06-30 16:46] VITALS: BP 162/117; TEMP 97.8; O2SAT 97
== END 2018-06-30 16:05 | disposition home or self-care (01) ==
LOC: ER 13:52
DX: G40.909 Epilepsy, unspecified, not intractable, without status epilepticus (principal); F90.9 Attention-deficit hyperactivity disorder, unspecified type; E78.5 Hyperlipidemia, unspecified; I10 Essential (primary) hypertension; I25.2 Old myocardial infarction; F17.210 Nicotine dependence, cigarettes, uncomplicated; Z79.899 Other long term (current) drug therapy; Z86.73 Personal history of transient ischemic attack (TIA), and cerebral infarction without residual deficits
CPT/HCPCS: 99284

== ENCOUNTER 2018-09-20 05:07 | Emergency (ER) | payer OTHER ==
--- OUTSIDE RECORDS SUMMARY | 2018-09-20 05:10 | XMS REPORT ---
:1980 [facility] Address [address] [place] [id number] Care Team Providers Name Role Phone MILAGRO [...] Range Comments ANTICARDIOLIPIN IGG ANTIBODY (BEAKER) (test gusv=866) < GPL ANTICARDIOLIPIN IGM ANTIBODY (BEAKER) (test jtus=547) 0.6 MPL Anticardiolipin IgG Result Interpretation: NEG:<20 GPL; U/mlPOS:>/=20 GPL ;U/mlAnticardiolipinIgM Result Interpretation: NEG:<20 MPL; U/mlPOS:>/= 20 MPL;U/[id number] 19:19:00 Test Item Value Reference Range Comments HOMOCYSTEINE (BEAKER) (test zqjj=344) 19.1 umol/L 5.1-15.4 HEMOGLOBIN [id number] 16:55:00 Test Item Value Reference Range Comments HEMOGLOBIN A1C (BEAKER) (test essh=881) 5.1 % 4.3-6.1 TSH/FREE T4 IF [id number] 16:00:00 Test Item Value Reference Range Comments THYROID STIMULATING HORMONE (BEAKER) (test 1.64 uIU/mL 0.35-4.94 mblq=836) VITAMIN B12 AND [id number] 16:00:00 Test Item Value Reference Range Comments VITAMIN B12 (BEAKER) (test ewrl=880) 241 pg/mL 213-816 FOLATE (BEAKER) (test rjld=734) 3.7 ng/mL >=7.0 Effective 07/08/2014: Folate Reference Range ChangeNew: >=7.0 Previous: & gt;=5.4SEDIMENTATION [id number] 15:57:00 Test Item Value Reference Range Comments SEDIMENTATION RATE, ERYTHROCYTE (BEAKER) (test 8 mm/HR 0-20 iguj=436) LIPID [id number] 15:32:00 Test Item Value Reference Range Comments TRIGLYCERIDES (BEAKER) (test jofn=822) 98 mg/dL CHOLESTEROL (BEAKER) (test asth=017) 200 mg/dL HDL CHOLESTEROL (BEAKER) (test ztno=646) 51 mg/dL LDL CHOLESTEROL CALCULATED (BEAKER) (test 129 mg/dL qyka=992) Triglyceride Reference Range: Low Risk <150 Borderline 150- 199 High Risk 200-499 Very High Risk >=500Cholesterol Reference Range: Low Risk <200 Borderline 200-239 High Risk > 240HDL Cholesterol Reference Range: Low Risk >=60 High Risk <40LDL Cholesterol Reference Range: Optimal <100 Near Optimal 100-129 Borderline 130-159 High 160-189 Very High >=190C-REACTIVE [id number] 15:30:00 Test Item Value Reference Range Comments C-REACTIVE PROTEIN (BEAKER) (test mnzj=747) 2.96 mg/dL 0.00-0.50 CBC W/PLT COUNT & AUTO [id number] 15:05:00 Test Item Value Reference Range Comments WHITE BLOOD CELL COUNT (BEAKER) (test ztcz=231) 7.8 K/ L 4.0-10.0 RED BLOOD CELL COUNT (BEAKER) (test ycvd=354) 5.50 M/ L 4.00-5.00 HEMOGLOBIN (BEAKER) (test ujdy=959) 16.4 GM/DL 12.0-15.0 HEMATOCRIT (BEAKER) (test jjha=686) 48.2 % 36.0-45.0 MEAN CORPUSCULAR VOLUME (BEAKER) (test ilfi=404) 87.7 fL 82.0-99.0 MEAN CORPUSCULAR HEMOGLOBIN (BEAKER) (test 29.8 pg 27.0-33.0 auld=366) MEAN CORPUSCULAR HEMOGLOBIN CONC (BEAKER) (test 34.0 GM/DL 32.0-36.0 filb=181) RED CELL DISTRIBUTION WIDTH (BEAKER) (test 15.3 % 10.3-14.2 kdci=394) PLATELET COUNT (BEAKER) (test jhih=619) 217 K/CU MM 150-430 MEAN PLATELET VOLUME (BEAKER) (test haxx=782) 7.3 fL 6.5-10.5 NUCLEATED RED BLOOD CELLS (BEAKER) (test 0 /100 WBC 0-0 dmvd=576) NEUTROPHILS RELATIVE PERCENT (BEAKER) (test 67 % cgss=720) LYMPHOCYTES RELATIVE PERCENT (BEAKER) (test 22 % pnxb=098) MONOCYTES RELATIVE PERCENT (BEAKER) (test 8 % tqvt=500) EOSINOPHILS RELATIVE PERCENT (BEAKER) (test 1 % qopj=190) BASOPHILS RELATIVE PERCENT (BEAKER) (test 2 % trte=966) NEUTROPHILS ABSOLUTE COUNT (BEAKER) (test 5.25 K/ L 1.80-8.00 yscu=576) LYMPHOCYTES ABSOLUTE COUNT (BEAKER) (test 1.68 K/ L 1.48-4.50 serd=956) MONOCYTES ABSOLUTE COUNT (BEAKER) (test 0.65 K/ L 0.00-1.30 warp=622) EOSINOPHILS ABSOLUTE COUNT (BEAKER) (test 0.09 K/ L 0.00-0.50 fedx=543) BASOPHILS ABSOLUTE COUNT (BEAKER) (test 0.14 K/ L 0.00-0.20 ovxe=679) [id number] 07:34:00 Test Item Value Reference Range Comments MAGNESIUM (BEAKER) (test 2.0 mg/dL 1.6-2.6 Specimen slightly hemolyzed stwa=222) BASIC METABOLIC [id number] 07:33:00 Test Item Value Reference Range Comments SODIUM (BEAKER) (test 136 meq/L 136-145 gjch=946) POTASSIUM (BEAKER) (test 4.1 meq/L 3.5-5.1 bujn=941) CHLORIDE (BEAKER) (test 107 meq/L 98-107 wljd=997) CO2 (BEAKER) (test 20 meq/L 22-29 feko=187) BLOOD UREA NITROGEN 10 mg/dL 7-21 (BEAKER) (test qutl=953) CREATININE (BEAKER) (test 0.72 mg/dL 0.57-1.25 mdvc=869) GLUCOSE RANDOM (BEAKER) 84 mg/dL 70-105 (test rlpa=360) CALCIUM (BEAKER) (test 8.3 mg/dL 8.4-10.2 otut=205) EGFR (BEAKER) (test 91 mL/min/1.73 sq m ESTIMATED GFR IS NOT gock=3092) ACCURATE CREATININE CLEARANCE IN PREDICTING GLOMERULAR FILTRATION RATE. ESTIMATED GFR IS NOT APPLICABLE FOR DIALYSIS PATIENTS. [id number] 07:27:00 Test Item Value Reference Range Comments MAGNESIUM (BEAKER) (test qpbh=492) 1.7 mg/dL 1.6-2.6 SCREEN, [id number] 13:54:00 Test Item Value Reference Range Comments TEST URINE (BEAKER) (test wmao=547) Negative [id number] 02:55:00 Test Item Value Reference Range Comments MAGNESIUM (BEAKER) (test pcyl=996) 1.8 mg/dL 1.6-2.6 PHENYTOIN LEVEL, [id number] 00:30:00 Test Item Value Reference Range Comments PHENYTOIN (DILANTIN) (BEAKER) (test ruog=904) 7.3 ug/mL 10.0-20.0 HEPATIC FUNCTION [id number] 00:26:00 Test Item Value Reference Range Comments TOTAL PROTEIN (BEAKER) (test ohil=878) 6.4 gm/dL 6.0-8.3 ALBUMIN (BEAKER) (test nepq=1687) 3.8 g/dL 3.5-5.0 BILIRUBIN TOTAL (BEAKER) (test jmbz=274) 0.4 mg/dL 0.2-1.2 BILIRUBIN DIRECT (BEAKER) (test wezp=708) 0.2 mg/dL 0.1-0.5 ALKALINE PHOSPHATASE (BEAKER) (test sizr=806) 114 U/L 40-150 AST (SGOT) (BEAKER) (test enug=889) 16 U/L 5-34 ALT (SGPT) (BEAKER) (test hzlu=411) 20 U/L 6-55 BASIC METABOLIC [id number] 00:26:00 Test Item Value Reference Range Comments SODIUM (BEAKER) (test 138 meq/L 136-145 alnx=335) POTASSIUM (BEAKER) (test 4.0 meq/L 3.5-5.1 yxun=701) CHLORIDE (BEAKER) (test 109 meq/L 98-107 zvtt=510) CO2 (BEAKER) (test 21 meq/L 22-29 wilx=059) BLOOD UREA NITROGEN 7 mg/dL 7-21 (BEAKER) (test nolp=523) CREATININE (BEAKER) (test 0.74 mg/dL 0.57-1.25 cjfh=677) GLUCOSE RANDOM (BEAKER) 103 mg/dL 70-105 (test dqwg=065) CALCIUM (BEAKER) (test 9.0 mg/dL 8.4-10.2 psro=966) EGFR (BEAKER) (test 88 mL/min/1.73 sq m ESTIMATED GFR IS NOT cmwn=5735) ACCURATE CREATININE CLEARANCE IN PREDICTING GLOMERULAR FILTRATION RATE. ESTIMATED GFR IS NOT APPLICABLE FOR DIALYSIS PATIENTS. [id number] 00:26:00 Test Item Value Reference Range Comments ALBUMIN (BEAKER) (test bvdb=2217) 3.8 g/dL 3.5-5.0 CBC W/PLT COUNT & AUTO [id number] 00:16:00 Test Item Value Reference Range Comments WHITE BLOOD CELL COUNT (BEAKER) (test zabl=210) 10.1 K/ L 4.0-10.0 RED BLOOD CELL COUNT (BEAKER) (test funk=880) 5.45 M/ L 4.00-5.00 HEMOGLOBIN (BEAKER) (test daxt=476) 15.5 GM/DL 12.0-15.0 HEMATOCRIT (BEAKER) (test dhzb=056) 48.8 % 36.0-45.0 MEAN CORPUSCULAR VOLUME (BEAKER) (test mxve=534) 89.6 fL 82.0-99.0 MEAN CORPUSCULAR HEMOGLOBIN (BEAKER) (test 28.4 pg 27.0-33.0 pxzl=638) MEAN CORPUSCULAR HEMOGLOBIN CONC (BEAKER) (test 31.7 GM/DL 32.0-36.0 afpb=690) RED CELL DISTRIBUTION WIDTH (BEAKER) (test 15.5 % 10.3-14.2 dfoz=252) PLATELET COUNT (BEAKER) (test hjlf=003) 260 K/CU MM 150-430 MEAN PLATELET VOLUME (BEAKER) (test jlwm=239) 7.7 fL 6.5-10.5 NUCLEATED RED BLOOD CELLS (BEAKER) (test 0 /100 WBC 0-0 yysc=976) NEUTROPHILS RELATIVE PERCENT (BEAKER) (test 83 % rqmt=864) LYMPHOCYTES RELATIVE PERCENT (BEAKER) (test 12 % gnpz=960) MONOCYTES RELATIVE PERCENT (BEAKER) (test 4 % cmcj=696) EOSINOPHILS RELATIVE PERCENT (BEAKER) (test 0 % iciv=126) BASOPHILS RELATIVE PERCENT (BEAKER) (test 0 % qhvc=388) NEUTROPHILS ABSOLUTE COUNT (BEAKER) (test 8.39 K/ L 1.80-8.00 sdgv=419) LYMPHOCYTES ABSOLUTE COUNT (BEAKER) (test 1.24 K/ L 1.48-4.50 onps=201) MONOCYTES ABSOLUTE COUNT (BEAKER) (test 0.40 K/ L 0.00-1.30 pelz=103) EOSINOPHILS ABSOLUTE COUNT (BEAKER) (test 0.03 K/ L 0.00-0.50 zmxd=872) BASOPHILS ABSOLUTE COUNT (BEAKER) (test 0.03 K/ L 0.00-0.20 lceo=619) 0.00
--- OUTSIDE RECORDS SUMMARY | 2018-09-20 05:10 | XMS REPORT | Clinical Summary ---
:1980 Author Organization [facility] [employer] [facility] [facility] Address [address] [place] [address] Care Team Providers Name Role Phone Louie [...] Not on file Results Not on fileafter 09/19/2017 Insurance Payer Benefit Plan / Subscriber ID Type Phone Address Group MEDICAID - MEDICAID [facility] xxxxxxxxx Medicaid Contracted MGD CARE PLAN Advance Directives For more information, please contact:[facility] [id number] [place], [place] [phone] Code Status Date Activated Date Inactivated Comments Full Code 10/14/2016 3:43 PM 10/18/2016 2:41 AM This code status was determined by: Patient
[2018-09-20] MEDS ORDERED: NA CHLORIDE 0.9% 100 ML IV ONE (05:31)
[2018-09-20] MEDS ORDERED: NA CHLORIDE 0.9% 1,000 ML ONE (05:31)
[2018-09-20 06:07] LABS: Potassium 3.8 mmol/L (3.5-5.1)
[2018-09-20] MEDS ORDERED: HYDROCODONE/APAP 10/325 TAB ONE (06:10)
--- NOTE | 2018-09-20 06:16 | EDPHYS ---
Physician Documentation [facility] Name: Nelia Corley Age: 38 yrs Sex: Female : 1980 Arrival Date: 09/20/2018 Time: 05:11 Bed 7 Private MD: ED Physician Chadd Harris HPI: 09/20 05:22 This 38 yrs old Female presents to ER via EMS with complaints of seizure. rn 05:22 The patient presents after having a single isolated seizure. Seizure onset: just prior rn to arrival. Associated injury: The patient did not suffer any apparent associated injury. Current symptoms: Currently, the patient is not experiencing any symptoms. The patient has not recently seen a physician. REports has known seizure disorder, had single seizure, reports last seizure around [place], supposed to take dilantin but has been out for about 1 week due to monetary problems. . 05:22 Reports otherwise has been feeling ok, no recent head trauma/fever/vomiting/diarrhea. . 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 - Social history:: Smoking status: Patient uses tobacco products, smokes one pack cigarettes per day. Patient uses street drugs, marijuana, Patient/guardian denies using alcohol. - Ebola Screening: : Patient negative for fever greater than or equal to 101.5 degrees Fahrenheit, and additional compatible Ebola Virus Disease symptoms Patient denies exposure to infectious person Patient denies travel to an Ebola-affected area in the 21 days before illness onset. - Family history:: not pertinent. - Hospitalizations: : No recent hospitalization is reported. ROS: 05:26 Constitutional: Negative for fever, chills, and weight loss, Eyes: Negative for injury, rn pain, redness, and discharge, ENT: Negative for injury, pain, and discharge, Neck: Negative for injury, pain, and swelling, Cardiovascular: Negative for chest pain, palpitations, and edema, Respiratory: Negative for shortness of breath, cough, wheezing, and pleuritic chest pain, Abdomen/GI: Negative for abdominal pain, nausea, vomiting, diarrhea, and constipation, MS/Extremity: Negative for injury and deformity, Skin: Negative for injury, rash, and discoloration, Neuro: Negative for headache, weakness, numbness, tingling Exam: 05:26 Constitutional: This is a well developed, well nourished patient who is awake, alert, rn sitting with legs crossed, upright, and tearful. Head/Face: Normocephalic, atraumatic. Eyes: Pupils equal round and reactive to light, extra-ocular motions intact. Lids and lashes normal. Conjunctiva and sclera are non-icteric and not injected. Cornea within normal limits. Periorbital areas with no swelling, redness, or edema. ENT: MMM Neck: Trachea midline, no thyromegaly or masses palpated, and no cervical lymphadenopathy. Supple, full range of motion without nuchal rigidity, or vertebral point tenderness. No Meningismus. Cardiovascular: Regular rate and rhythm. No pulse deficits. Respiratory: Lungs have equal breath sounds bilaterally, clear to auscultation. No increased work of breathing, no retractions or nasal flaring. Abdomen/GI: soft, non-tender Skin: Warm, dry with normal turgor. Normal color with no rashes, no lesions, and no evidence of cellulitis. MS/ Extremity: Pulses equal, no cyanosis. Neurovascular intact. Full, normal range of motion. Equal circumference. Neuro: Awake and alert, GCS 15, oriented to person, place, time, and situation. Cranial nerves II-XII grossly intact. Motor strength 5/5 in all extremities. Sensory grossly intact. Cerebellar exam normal. 06:12 ECG was reviewed by the Attending Physician. rn Vital Signs: 05:07 BP 224 / 163; Pulse 97; Resp 20; Temp 98.1(O); Pulse Ox 97% on R/A; Weight 113.4 kg fc (R); Height 5 ft. 2 in. (157.48 cm) (R); Pain 9/10; 05:59 BP 192 / 153; Pulse 94; Resp 22; Pulse Ox 96% on R/A; fc 06:11 BP 209 / 154; Pulse 93; Resp 21 S; Pulse Ox 98% on R/A; Pain 9/10; jd3 05:07 Body Mass Index 45.73 (113.40 kg, 157.48 cm) fc Rhoda Coma Score: 05:17 Eye Response: spontaneous(4). Verbal Response: confused(4). Motor Response: obeys jd3 commands(6). Total: 14. MDM: 05:11 Patient medically screened. rn 06:12 Differential diagnosis: seizure. Data reviewed: vital signs, nurses notes, lab test rn result(s), and as a result, I will discharge patient. Counseling: I had a detailed discussion with the patient and/or guardian regarding: the historical points, exam findings, and any diagnostic results supporting the discharge/admit diagnosis, lab results, the need for outpatient follow up, to return to the emergency department if symptoms worsen or persist or if there are any questions or concerns that arise at home. Special discussion: I discussed with the patient/guardian in detail that at this point there is no indication for admission to the hospital. It is understood, however, that if the symptoms persist or worsen the patient needs to return immediately for re-evaluation. Based on the history and exam findings, there is no indication for further emergent testing or inpatient evaluation. I discussed with the patient/guardian the need to see the neurologist for further evaluation of the symptoms. ED course: Pt with seizure, known hx of seizures, normal electrolytes, normal ECG, back to baseline. Will dc home with dilantin refilled and neurological f/u. . 09/20 05:12 Order name: Basic Metabolic Panel; Complete Time: 06:11 rn 09/20 05:12 Order name: IV Start; Complete Time: 05:52 rn 09/20 05:26 Order name: EKG - Nurse/Tech; Complete Time: 05:51 rn EC:12 Rate is 92 beats/min. Rhythm is regular. QRS [place] is Normal. [place] interval is normal. QRS rn interval is normal. QT interval is normal. No Q waves. T waves are Normal. No ST changes noted. Clinical impression: Normal ECG. Interpreted by me. Administered Medications: Discontinued: Phenytoin 1 grams IVPB once Discontinued: NS 0.9% 1000 ml IV at 1000 ml once 05:52 Drug: Phenytoin 1 grams Route: IVPB; Site: left forearm; jd3 06:44 Follow up: Response: No adverse reaction; No change in condition; IV Status: IV fc infiltrated; IV Intake: 90ml 05:52 Drug: NS 0.9% 1000 ml Route: IV; Rate: 1000 ml; Site: left forearm; jd3 06:44 Follow up: Response: No adverse reaction; No change in condition; IV Status: IV fc infiltrated; IV Intake: 100ml 06:08 Drug: Douglass 10 mg-325 mg 1 tabs Route: PO; jd3 07:05 Follow up: Response: No adverse reaction jd3 06:17 Drug: cloNIDine 0.2 mg Route: PO; jd3 07:05 Follow up: Response: No adverse reaction jd3 06:40 Drug: Zofran 4 mg Route: PO; fc 07:05 Follow up: Response: No adverse reaction jd3 Disposition: 09/20/18 06:16 Discharged to Home. Impression: Epilepsy and recurrent seizures. - Condition is Stable. - Discharge Instructions: Seizure, Adult. - Prescriptions for Phenytoin Sodium Extended 100 mg Oral Capsule - take 1 capsule by ORAL route every 8 hours; 90 capsule. - Medication Reconciliation Form, Thank You Letter, Antibiotic Education, Prescription Opioid Use form. - Follow up: Private Physician; When: As needed; Reason: Recheck today's complaints, Re-evaluation by your physician. - Problem is new. - Symptoms have improved. Signatures: Dispatcher [employer] Tiffany Mercedes RN RN fc Nieto, Roman, MD MD rn Davies, Jonathon, RN RN jd3 Corrections: (The following items were deleted from the chart) 07:06 06:16 09/20/2018 06:16 Discharged to Home. Impression: Epilepsy and recurrent seizures. jd3 Condition is Stable. Forms are Medication Reconciliation Form, Thank You Letter, Antibiotic Education, Prescription Opioid Use. Follow up: Private Physician; When: As needed; Reason: Recheck today's complaints, Re-evaluation by your physician. Problem is new. Symptoms have improved. rn
--- NOTE | 2018-09-20 06:16 | ER ---
Nurse's Notes [facility] Name: Nelia Corley Age: 38 yrs Sex: Female : 1980 Arrival Date: 09/20/2018 Time: 05:11 Bed 7 Private MD: Diagnosis: Epilepsy and recurrent seizures Presentation: 09/20 05:07 Presenting complaint: EMS states: that pt had a seizure. She is awake and alert but fc very tearful. Pt states that she has not had any dilantin in over a week due to insurance problems. Transition of care: patient was not received from another setting of care. Onset of symptoms was September 20, 2018. Risk Assessment: Do you want to hurt yourself or someone else? Patient reports no desire to harm self or others. Initial Sepsis Screen: Does the patient meet any 2 criteria? HR > 90 bpm. Yes Does the patient have a suspected source of infection? No. Patient's initial sepsis screen is negative. Care prior to arrival: None. 05:07 Method Of Arrival: EMS: [facility] 05:07 Acuity: JENNIFER 3 fc Triage Assessment: 05:17 Neuro: Level of Consciousness is awake, alert, obeys commands, Oriented to person, jd3 place, situation. 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 - Social history:: Smoking status: Patient uses tobacco products, smokes one pack cigarettes per day. Patient uses street drugs, marijuana, Patient/guardian denies using alcohol. - Ebola Screening: : Patient negative for fever greater than or equal to 101.5 degrees Fahrenheit, and additional compatible Ebola Virus Disease symptoms Patient denies exposure to infectious person Patient denies travel to an Ebola-affected area in the 21 days before illness onset. - Family history:: not pertinent. - Hospitalizations: : No recent hospitalization is reported. Screenin:07 Abuse screen: Denies threats or abuse. Nutritional screening: No deficits noted. fc Tuberculosis screening: No symptoms or risk factors identified. Fall Risk Fall in past 12 months (25 points). Secondary diagnosis (15 points) seizures, No IV (0 pts). Ambulatory Aid- None/Bed Rest/Nurse Assist (0 pts). Gait- Weak (10 pts.). Mental Status- Overestimates/Forgets Limitations (15 pts.). Total Babcock Fall Scale indicates High Risk Score (45 or more points). Fall prevention measures have been instituted. Side Rails Up X 2 Placed Close to Nursing Station Frequent Obs/Assessments Occuring Family Present and informed to notify staff if the need to leave the bedside As available patient and family educated on Fall Prevention Program and Strategies. 05:17 Abuse screen: Denies threats or abuse. Nutritional screening: No deficits noted. jd3 Tuberculosis screening: No symptoms or risk factors identified. Fall Risk Ambulatory Aid- None/Bed Rest/Nurse Assist (0 pts). Gait- Normal/Bed Rest/Wheelchair (0 pts) Mental Status- Oriented to own ability (0 pts). Total Babcock Fall Scale indicates No Risk (0-24 pts). Assessment: 05:14 General: Appears uncomfortable, Behavior is cooperative, anxious, crying. Pain: jd3 Complains of pain in head, right arm and left arm Quality of pain is described as pressure, sharp. Neuro: Level of Consciousness is awake, alert, obeys commands, Oriented to person, place, situation, Speech is normal, Facial symmetry appears normal, Pupils are PERRLA, Reports dizziness, headache. Cardiovascular: Heart tones S1 S2 present Capillary refill < 3 seconds Patient's skin is warm and dry. Respiratory: Airway is patent Respiratory effort is even, unlabored, Respiratory pattern is regular, symmetrical, Breath sounds are clear bilaterally. GI: No signs and/or symptoms were reported involving the gastrointestinal system. : No signs and/or symptoms were reported regarding the genitourinary system. EENT: No signs and/or symptoms were reported regarding the EENT system. Derm: Skin is intact, Skin is dry, Skin is normal, Skin temperature is warm. Musculoskeletal: Circulation, motion, and sensation intact. Range of motion: limited in left shoulder and right shoulder. 06:11 Reassessment: No changes from previously documented assessment. Patient and/or family jd3 updated on plan of care and expected duration. Pain level reassessed. Patient is alert, oriented x 3, equal unlabored respirations, skin warm/dry/pink. 06:40 Reassessment: Pt noted to be vomiting. Dr Harris notified and pt given Zofran s/l as fc ordered. 06:45 Reassessment: Pt states that IV hurts and is requesting that medication be stopped. Discussed with Dr Harris and explained that there is approx 10 ml left in Dilantin bag. He ordered that IV not be restarted. 06:52 Reassessment: pt notified ride that she is up for discharge. awaiting transportation jd3 and to ensure sublingual Zofran helps with pt's nausea. Vital Signs: 05:07 BP 224 / 163; Pulse 97; Resp 20; Temp 98.1(O); Pulse Ox 97% on R/A; Weight 113.4 kg fc (R); Height 5 ft. 2 in. (157.48 cm) (R); Pain 9/10; 05:59 BP 192 / 153; Pulse 94; Resp 22; Pulse Ox 96% on R/A; fc 06:11 BP 209 / 154; Pulse 93; Resp 21 S; Pulse Ox 98% on R/A; Pain 9/10; jd3 05:07 Body Mass Index 45.73 (113.40 kg, 157.48 cm) [place] Coma Score: 05:17 Eye Response: spontaneous(4). Verbal Response: confused(4). Motor Response: obeys jd3 commands(6). Total: 14. ED Course: 05:07 Arm band placed on Patient placed in an exam room, on a stretcher. fc 05:11 Patient arrived in ED. al2 05:11 Chadd Harris MD is Attending Physician. rn 05:14 Julius Lay RN is Primary Nurse. jd3 05:15 Triage completed. fc 05:16 Patient has correct armband on for positive identification. Bed in low position. Call jd3 light in reach. Side rails up X2. Adult w/ patient. Seizure precautions initiated. 05:28 Missed attempt(s): 22 gauge in left antecubital area. Missed attempt(s): 22 gauge in lp1 left hand. 05:49 Inserted saline lock: 22 gauge in left forearm, using aseptic technique. Blood aa1 collected. 06:46 No provider procedures requiring assistance completed. IV discontinued, intact, fc bleeding controlled, No redness/swelling at site. Pressure dressing applied. Administered Medications: Discontinued: Phenytoin 1 grams IVPB once Discontinued: NS 0.9% 1000 ml IV at 1000 ml once 05:52 Drug: Phenytoin 1 grams Route: IVPB; Site: left forearm; jd3 06:44 Follow up: Response: No adverse reaction; No change in condition; IV Status: IV fc infiltrated; IV Intake: 90ml 05:52 Drug: NS 0.9% 1000 ml Route: IV; Rate: 1000 ml; Site: left forearm; jd3 06:44 Follow up: Response: No adverse reaction; No change in condition; IV Status: IV fc infiltrated; IV Intake: 100ml 06:08 Drug: Hitterdal 10 mg-325 mg 1 tabs Route: PO; jd3 07:05 Follow up: Response: No adverse reaction jd3 06:17 Drug: cloNIDine 0.2 mg Route: PO; jd3 07:05 Follow up: Response: No adverse reaction jd3 06:40 Drug: Zofran 4 mg Route: PO; fc 07:05 Follow up: Response: No adverse reaction jd3 Intake: 06:44 IV: 90ml; Total: 90ml. fc 06:44 IV: 100ml; Total: 190ml. fc Outcome: 06:16 Discharge ordered by . rn 07:04 Discharged to home via wheelchair, with family. jd3 07:04 Condition: stable 07:04 Discharge instructions given to patient, Instructed on discharge instructions, follow up and referral plans. medication usage, Demonstrated understanding of instructions, follow-up care, medications, Prescriptions given X 2. 07:06 Patient left the ED. jd3 Signatures: Kecia Sanchez RN RN aa1 Tiffany Ospina RN RN fc Chadd Harris MD MD rn Pena, Laura, RN RN lp1 Julius Lay RN RN jd3 Delphine Mesa Corrections: (The following items were deleted from the chart) 05:17 05:16 Bed in low position. Call light in reach. Side rails up X2. Adult w/ patient. jd3 Seizure precautions initiated. jd3 05:58 05:07 Pulse 97bpm; Resp 20bpm; Pulse Ox 97% RA; Temp 98.1F Oral; 113.4 kg Reported; fc Height 5 ft. 2 in. Reported; BMI: 45.7; Pain 9/10; fc
[2018-09-20] MEDS ORDERED: cloNIDine HCl 0.1 MG TAB ONE (06:23)
[2018-09-20] MEDS ORDERED: ONDANSETRON 4 MG (ODT) TAB ONE (06:48)
[2018-09-20 07:23] VITALS: TEMP 98.1
[2018-09-20 07:24] VITALS: BP 209/154; O2SAT 98
--- NOTE | 2018-09-20 12:21 | EKG ---
Test Date: 2018-09-20 Test Time: 05:40:04 Piping Engineer: SARY MEASUREMENT RESULTS: Intervals: Rate: 92 WI: 138 QRSD: 74 QT: 348 QTc: 430 [place]: P: 52 WI: 138 QRS: 34 T: 57 INTERPRETIVE STATEMENTS: Normal sinus rhythm Normal ECG Compared to ECG 05/10/2018 11:23:45 Sinus arrhythmia no longer present Electronically Signed On 09-20-18 12:20:13 FINISHING MACHINE OPERATOR AUTOMATIC by Nile Price
== END 2018-09-20 07:06 | disposition home or self-care (01) ==
LOC: ER 05:07
DX: G40.909 Epilepsy, unspecified, not intractable, without status epilepticus (principal); F17.210 Nicotine dependence, cigarettes, uncomplicated; Z79.899 Other long term (current) drug therapy
CPT/HCPCS: 36415; 80048; 93005; 96365; 99284; J1165; J7030

== ENCOUNTER 2018-10-14 14:58 | Emergency (ER) | payer OTHER ==
--- OUTSIDE RECORDS SUMMARY | 2018-10-14 15:00 | XMS REPORT | Clinical Summary ---
:1980 Author Organization [facility] Address [address] [place] [address] Care Team Providers Name Role Phone Louie [...] Not on file Results Not on fileafter 10/13/2017 Insurance Payer Benefit Plan / Subscriber ID Type Phone Address Group MEDICAID - MEDICAID [facility] xxxxxxxxx Medicaid Contracted MGD CARE PLAN Advance Directives For more information, please contact:[facility] [id number] [place], [place] [phone] Code Status Date Activated Date Inactivated Comments Full Code 10/14/2016 3:43 PM 10/18/2016 2:41 AM This code status was determined by: Patient
--- OUTSIDE RECORDS SUMMARY | 2018-10-14 15:01 | XMS REPORT ---
:1980 Author Organization [facility] Address [address] [place] [address] Care Team Providers Name Role Phone MILAGRO [...] Range Comments ANTICARDIOLIPIN IGG ANTIBODY (BEAKER) (test mmuc=955) < GPL ANTICARDIOLIPIN IGM ANTIBODY (BEAKER) (test sbqp=966) 0.6 MPL Anticardiolipin IgG Result Interpretation: NEG:<20 GPL; U/mlPOS:>/=20 GPL ;U/mlAnticardiolipinIgM Result Interpretation: NEG:<20 MPL; U/mlPOS:>/= 20 MPL;[id number] 19:19:00 Test Item Value Reference Range Comments HOMOCYSTEINE (BEAKER) (test tavl=378) 19.1 umol/L 5.1-15.4 HEMOGLOBIN [id number] 16:55:00 Test Item Value Reference Range Comments HEMOGLOBIN A1C (BEAKER) (test egyl=591) 5.1 % 4.3-6.1 TSH/FREE T4 IF [id number] 16:00:00 Test Item Value Reference Range Comments THYROID STIMULATING HORMONE (BEAKER) (test 1.64 uIU/mL 0.35-4.94 dqgl=854) VITAMIN B12 AND [id number] 16:00:00 Test Item Value Reference Range Comments VITAMIN B12 (BEAKER) (test dhfs=337) 241 pg/mL 213-816 FOLATE (BEAKER) (test gbic=561) 3.7 ng/mL >=7.0 Effective 07/08/2014: Folate Reference Range ChangeNew: >=7.0 Previous: & gt;=5.4SEDIMENTATION [id number] 15:57:00 Test Item Value Reference Range Comments SEDIMENTATION RATE, ERYTHROCYTE (BEAKER) (test 8 mm/HR 0-20 bctq=701) LIPID [id number] 15:32:00 Test Item Value Reference Range Comments TRIGLYCERIDES (BEAKER) (test epyi=554) 98 mg/dL CHOLESTEROL (BEAKER) (test owbm=578) 200 mg/dL HDL CHOLESTEROL (BEAKER) (test lvea=292) 51 mg/dL LDL CHOLESTEROL CALCULATED (BEAKER) (test 129 mg/dL eklq=247) Triglyceride Reference Range: Low Risk <150 Borderline 150- 199 High Risk 200-499 Very High Risk >=500Cholesterol Reference Range: Low Risk <200 Borderline 200-239 High Risk > 240HDL Cholesterol Reference Range: Low Risk >=60 High Risk <40LDL Cholesterol Reference Range: Optimal <100 Near Optimal 100-129 Borderline 130-159 High 160-189 Very High >=190C-REACTIVE [id number] 15:30:00 Test Item Value Reference Range Comments C-REACTIVE PROTEIN (BEAKER) (test hvhe=901) 2.96 mg/dL 0.00-0.50 CBC W/PLT COUNT & AUTO [id number] 15:05:00 Test Item Value Reference Range Comments WHITE BLOOD CELL COUNT (BEAKER) (test pyoc=710) 7.8 K/ L 4.0-10.0 RED BLOOD CELL COUNT (BEAKER) (test xvqb=052) 5.50 M/ L 4.00-5.00 HEMOGLOBIN (BEAKER) (test xuwk=421) 16.4 GM/DL 12.0-15.0 HEMATOCRIT (BEAKER) (test zlls=480) 48.2 % 36.0-45.0 MEAN CORPUSCULAR VOLUME (BEAKER) (test vzuy=682) 87.7 fL 82.0-99.0 MEAN CORPUSCULAR HEMOGLOBIN (BEAKER) (test 29.8 pg 27.0-33.0 nblx=665) MEAN CORPUSCULAR HEMOGLOBIN CONC (BEAKER) (test 34.0 GM/DL 32.0-36.0 fbyr=722) RED CELL DISTRIBUTION WIDTH (BEAKER) (test 15.3 % 10.3-14.2 awev=893) PLATELET COUNT (BEAKER) (test avpt=434) 217 K/CU MM 150-430 MEAN PLATELET VOLUME (BEAKER) (test taen=846) 7.3 fL 6.5-10.5 NUCLEATED RED BLOOD CELLS (BEAKER) (test 0 /100 WBC 0-0 dxyi=372) NEUTROPHILS RELATIVE PERCENT (BEAKER) (test 67 % rxpv=989) LYMPHOCYTES RELATIVE PERCENT (BEAKER) (test 22 % bzku=575) MONOCYTES RELATIVE PERCENT (BEAKER) (test 8 % wmig=146) EOSINOPHILS RELATIVE PERCENT (BEAKER) (test 1 % cmkl=792) BASOPHILS RELATIVE PERCENT (BEAKER) (test 2 % gexh=778) NEUTROPHILS ABSOLUTE COUNT (BEAKER) (test 5.25 K/ L 1.80-8.00 qqep=602) LYMPHOCYTES ABSOLUTE COUNT (BEAKER) (test 1.68 K/ L 1.48-4.50 xilj=240) MONOCYTES ABSOLUTE COUNT (BEAKER) (test 0.65 K/ L 0.00-1.30 mkra=242) EOSINOPHILS ABSOLUTE COUNT (BEAKER) (test 0.09 K/ L 0.00-0.50 gigq=656) BASOPHILS ABSOLUTE COUNT (BEAKER) (test 0.14 K/ L 0.00-0.20 vgfo=355) [id number] 07:34:00 Test Item Value Reference Range Comments MAGNESIUM (BEAKER) (test 2.0 mg/dL 1.6-2.6 Specimen slightly hemolyzed dmpm=714) BASIC METABOLIC [id number] 07:33:00 Test Item Value Reference Range Comments SODIUM (BEAKER) (test 136 meq/L 136-145 rqtj=898) POTASSIUM (BEAKER) (test 4.1 meq/L 3.5-5.1 erji=399) CHLORIDE (BEAKER) (test 107 meq/L 98-107 xihj=017) CO2 (BEAKER) (test 20 meq/L 22-29 kpvw=693) BLOOD UREA NITROGEN 10 mg/dL 7-21 (BEAKER) (test olrx=535) CREATININE (BEAKER) (test 0.72 mg/dL 0.57-1.25 kkwz=051) GLUCOSE RANDOM (BEAKER) 84 mg/dL 70-105 (test hyrp=348) CALCIUM (BEAKER) (test 8.3 mg/dL 8.4-10.2 tjva=008) EGFR (BEAKER) (test 91 mL/min/1.73 sq m ESTIMATED GFR IS NOT nljw=3179) ACCURATE CREATININE CLEARANCE IN PREDICTING GLOMERULAR FILTRATION RATE. ESTIMATED GFR IS NOT APPLICABLE FOR DIALYSIS PATIENTS. [id number] 07:27:00 Test Item Value Reference Range Comments MAGNESIUM (BEAKER) (test hpjn=242) 1.7 mg/dL 1.6-2.6 SCREEN, [id number] 13:54:00 Test Item Value Reference Range Comments TEST URINE (BEAKER) (test nmrr=790) Negative [id number] 02:55:00 Test Item Value Reference Range Comments MAGNESIUM (BEAKER) (test dicc=313) 1.8 mg/dL 1.6-2.6 PHENYTOIN LEVEL, [id number] 00:30:00 Test Item Value Reference Range Comments PHENYTOIN (DILANTIN) (BEAKER) (test zqnp=247) 7.3 ug/mL 10.0-20.0 HEPATIC FUNCTION [id number] 00:26:00 Test Item Value Reference Range Comments TOTAL PROTEIN (BEAKER) (test dgpl=903) 6.4 gm/dL 6.0-8.3 ALBUMIN (BEAKER) (test ivai=7433) 3.8 g/dL 3.5-5.0 BILIRUBIN TOTAL (BEAKER) (test qafh=542) 0.4 mg/dL 0.2-1.2 BILIRUBIN DIRECT (BEAKER) (test uxie=908) 0.2 mg/dL 0.1-0.5 ALKALINE PHOSPHATASE (BEAKER) (test hrxw=014) 114 U/L 40-150 AST (SGOT) (BEAKER) (test dxgh=233) 16 U/L 5-34 ALT (SGPT) (BEAKER) (test yles=925) 20 U/L 6-55 BASIC METABOLIC [id number] 00:26:00 Test Item Value Reference Range Comments SODIUM (BEAKER) (test 138 meq/L 136-145 mcaz=803) POTASSIUM (BEAKER) (test 4.0 meq/L 3.5-5.1 ftlx=508) CHLORIDE (BEAKER) (test 109 meq/L 98-107 lqeg=372) CO2 (BEAKER) (test 21 meq/L 22-29 kmnb=619) BLOOD UREA NITROGEN 7 mg/dL 7-21 (BEAKER) (test cwer=849) CREATININE (BEAKER) (test 0.74 mg/dL 0.57-1.25 vnmq=052) GLUCOSE RANDOM (BEAKER) 103 mg/dL 70-105 (test epae=746) CALCIUM (BEAKER) (test 9.0 mg/dL 8.4-10.2 plwf=262) EGFR (BEAKER) (test 88 mL/min/1.73 sq m ESTIMATED GFR IS NOT ghjm=8021) ACCURATE CREATININE CLEARANCE IN PREDICTING GLOMERULAR FILTRATION RATE. ESTIMATED GFR IS NOT APPLICABLE FOR DIALYSIS PATIENTS. [id number] 00:26:00 Test Item Value Reference Range Comments ALBUMIN (BEAKER) (test aelk=2510) 3.8 g/dL 3.5-5.0 CBC W/PLT COUNT & AUTO [id number] 00:16:00 Test Item Value Reference Range Comments WHITE BLOOD CELL COUNT (BEAKER) (test tink=801) 10.1 K/ L 4.0-10.0 RED BLOOD CELL COUNT (BEAKER) (test mjcc=391) 5.45 M/ L 4.00-5.00 HEMOGLOBIN (BEAKER) (test dgbb=035) 15.5 GM/DL 12.0-15.0 HEMATOCRIT (BEAKER) (test etye=415) 48.8 % 36.0-45.0 MEAN CORPUSCULAR VOLUME (BEAKER) (test ukpe=669) 89.6 fL 82.0-99.0 MEAN CORPUSCULAR HEMOGLOBIN (BEAKER) (test 28.4 pg 27.0-33.0 iupe=108) MEAN CORPUSCULAR HEMOGLOBIN CONC (BEAKER) (test 31.7 GM/DL 32.0-36.0 ipoe=326) RED CELL DISTRIBUTION WIDTH (BEAKER) (test 15.5 % 10.3-14.2 itwe=691) PLATELET COUNT (BEAKER) (test ekwu=857) 260 K/CU MM 150-430 MEAN PLATELET VOLUME (BEAKER) (test eekh=601) 7.7 fL 6.5-10.5 NUCLEATED RED BLOOD CELLS (BEAKER) (test 0 /100 WBC 0-0 mtew=733) NEUTROPHILS RELATIVE PERCENT (BEAKER) (test 83 % ylei=927) LYMPHOCYTES RELATIVE PERCENT (BEAKER) (test 12 % anxc=081) MONOCYTES RELATIVE PERCENT (BEAKER) (test 4 % sfri=983) EOSINOPHILS RELATIVE PERCENT (BEAKER) (test 0 % eczb=357) BASOPHILS RELATIVE PERCENT (BEAKER) (test 0 % yhws=993) NEUTROPHILS ABSOLUTE COUNT (BEAKER) (test 8.39 K/ L 1.80-8.00 lrck=531) LYMPHOCYTES ABSOLUTE COUNT (BEAKER) (test 1.24 K/ L 1.48-4.50 qfuc=866) MONOCYTES ABSOLUTE COUNT (BEAKER) (test 0.40 K/ L 0.00-1.30 duho=070) EOSINOPHILS ABSOLUTE COUNT (BEAKER) (test 0.03 K/ L 0.00-0.50 podi=113) BASOPHILS ABSOLUTE COUNT (BEAKER) (test 0.03 K/ L 0.00-0.20 blbq=951) 0.00
[2018-10-14] MEDS ORDERED: MORPHINE 4 MG/ML SYR ONE ×2 (15:59→17:09)
[2018-10-14] MEDS ORDERED: KETOROLAC 30 MG/ML INJ ONE (15:59)
[2018-10-14] MEDS ORDERED: ONDANSETRON 4 MG/2 ML VIAL ONE (15:59)
[2018-10-14] MEDS ORDERED: NA CHLORIDE 0.9% 1,000 ML ONE (15:59)
[2018-10-14 16:20] LABS: Absolute Lymphocytes (CBC) 2.3 K/uL (0.7-4.9); Absolute Monocytes 0.6 K/uL (0.1-1.3); Absolute Neutrophil 7.8 K/uL (1.8-8.0); Basophils % 0.8 % (0-1.3); Eosinophils % 1.2 % (0-4.4); Hematocrit 44.8 % (36.0-45.0); Lymphocytes % 20.8 % (15.3-44.8); MPV 8.1 fL (7.6-11.3); Monocytes % 5.7 % (3.3-12.3); RBC Red Blood Cell Count 4.91 M/uL (3.86-4.86)
[2018-10-14 16:49] LABS: ALT/SGPT 24 U/L (12-78); AST/SGOT 15 U/L (15-37); Albumin 3.1 g/dL (3.4-5.0); Alkaline Phosphatase 137 U/L (45-117); BUN Blood Urea Nitrogen 5 mg/dL (7-18); Bicarbonate 26 mmol/L (21-32); Bilirubin Direct 0.2 mg/dL (0-0.2); Bilirubin Total 0.5 mg/dL (0.2-1.0); Glucose Level 84 mg/dL (74-106); Lipase 195 U/L (73-393); Phenytoin (Dilantin) Level < 0.5 ug/mL (10.0-20.0); Potassium 3.6 mmol/L (3.5-5.1); Protein, Total 6.6 g/dL (6.4-8.2); Sodium Level 139 mmol/L (136-145); Troponin (Emerg Dept Use Only) < 0.02 ng/mL (0.0-0.045)
[2018-10-14 17:05] LABS: Barbiturates NEGATIVE (NEGATIVE); Benzodiazepines NEGATIVE (NEGATIVE); Cocaine NEGATIVE (NEGATIVE); METHAMPHETAM NEGATIVE (NEGATIVE); Methadone NEGATIVE (NEGATIVE); Opiates NEGATIVE (NEGATIVE); Phencyclidine NEGATIVE (NEGATIVE); THC Cannibis POSITIVE (NEGATIVE)
[2018-10-14] MEDS ORDERED: CIPROFLOXACIN 400mg IV 400 MG/200 ML BAG IV ONE (17:06)
--- NOTE | 2018-10-14 17:43 | RAD REPORT ---
EXAM DESCRIPTION: CT - Stone Protocol - 10/14/2018 5:28 pm CLINICAL HISTORY: Abdominal pain. Lower abdominal pain. Urinary frequency COMPARISON: 2017 TECHNIQUE: Computed axial tomography of the abdomen pelvis was obtained without oral or IV contrast. Lack of IV and oral contrast limits evaluation of solid organs, bowel, and vessels. Coronal reformat greta images were obtained and reviewed. All CT scans are performed using dose optimization technique as appropriate and may include automated exposure control or mA/KV adjustment according to patient size. FINDINGS: Several small right renal calculi without hydronephrosis. Small renal cysts suspected. . A n ureteral calculus is not noted. A bladder calculus is not present. The liver, spleen, pancreas and adrenals appear grossly normal Cholecystectomy There is no evidence of diverticulitis. The appendix appears normal A 4 centimeter left ovarian cyst without significant free fluid IMPRESSION: Nonobstructing right renal calculi 4 centimeter left renal cyst without significant free fluid. Followup pelvic ultrasound in a couple m onths recommended for re-evaluation
--- NOTE | 2018-10-14 17:43 | RAD REPORT ---
EXAM DESCRIPTION: Saman Single View10/14/2018 4:17 pm CLINICAL HISTORY: abd pain COMPARISON: 2017 FINDINGS: The lungs appear clear of acute infiltrate. The heart is normal size IMPRESSION: No acute abnormalities displayed
[2018-10-14] MEDS ORDERED: PANTOPRAZOLE 40 MG INJ ONE (17:50)
--- NOTE | 2018-10-14 17:52 | EDPHYS ---
Physician Documentation [facility] Name: Nelia Corley Age: 38 yrs Sex: Female : 1980 Arrival Date: 10/14/2018 Time: 14:59 Bed 7 Private MD: ED Physician Cj Mckeon HPI: 10/14 15:39 This 38 yrs old Female presents to ER via Ambulatory with complaints of Flank isaak Pain. 15:39 The patient complains of pain in the right mid back and right low back. The pain isaak radiates to the right mid back and right low back. Onset: The symptoms/episode began/occurred yesterday. Modifying factors: The symptoms are alleviated by nothing. the symptoms are aggravated by nothing. Associated signs and symptoms: Pertinent positives: dysuria, nausea. Severity of pain: At its worst the pain was moderate in the emergency department the pain is unchanged. The patient has experienced similar episodes in the past, multiple times. 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 - Social history:: Smoking status: Patient/guardian denies using tobacco. - Ebola Screening: : Patient negative for fever greater than or equal to 101.5 degrees Fahrenheit, and additional compatible Ebola Virus Disease symptoms Patient denies exposure to infectious person Patient denies travel to an Ebola-affected area in the 21 days before illness onset No symptoms or risks identified at this time. ROS: 15:40 Constitutional: Negative for fever, chills, and weight loss, Eyes: Negative for injury, isaak pain, redness, and discharge, ENT: Negative for injury, pain, and discharge, Neck: Negative for injury, pain, and swelling, Cardiovascular: Negative for chest pain, palpitations, and edema, Respiratory: Negative for shortness of breath, cough, wheezing, and pleuritic chest pain, Back: Negative for injury and pain, : Negative for injury, bleeding, discharge, and swelling, MS/Extremity: Negative for injury and deformity, Skin: Negative for injury, rash, and discoloration, Neuro: Negative for headache, weakness, numbness, tingling, and seizure, Psych: Negative for depression, anxiety, suicide ideation, homicidal ideation, and hallucinations, Allergy/Immunology: Negative for hives, rash, and allergies, Endocrine: Negative for neck swelling, polydipsia, polyuria, polyphagia, and marked weight changes, Hematologic/Lymphatic: Negative for swollen nodes, abnormal bleeding, and unusual bruising. 15:40 Abdomen/GI: Positive for abdominal pain, nausea and vomiting, abdominal cramps, abdominal distension, of the right upper quadrant and right lower quadrant. Exam: 15:40 Constitutional: This is a well developed, well nourished patient who is awake, alert, isaak and in no acute distress. Head/Face: Normocephalic, atraumatic. Eyes: Pupils equal round and reactive to light, extra-ocular motions intact. Lids and lashes normal. Conjunctiva and sclera are non-icteric and not injected. Cornea within normal limits. Periorbital areas with no swelling, redness, or edema. ENT: Nares patent. No nasal discharge, no septal abnormalities noted. Tympanic membranes are normal and external auditory canals are clear. Oropharynx with no redness, swelling, or masses, exudates, or evidence of obstruction, uvula midline. Mucous membranes moist. Neck: Trachea midline, no thyromegaly or masses palpated, and no cervical lymphadenopathy. Supple, full range of motion without nuchal rigidity, or vertebral point tenderness. No Meningismus. Chest/axilla: Normal chest wall appearance and motion. Nontender with no deformity. No lesions are appreciated. Cardiovascular: Regular rate and rhythm with a normal S1 and S2. No gallops, murmurs, or rubs. Normal PMI, no JVD. No pulse deficits. Respiratory: Lungs have equal breath sounds bilaterally, clear to auscultation and percussion. No rales, rhonchi or wheezes noted. No increased work of breathing, no retractions or nasal flaring. Back: No spinal tenderness. No costovertebral tenderness. Full range of motion. Skin: Warm, dry with normal turgor. Normal color with no rashes, no lesions, and no evidence of cellulitis. MS/ Extremity: Pulses equal, no cyanosis. Neurovascular intact. Full, normal range of motion. Neuro: Awake and alert, GCS 15, oriented to person, place, time, and situation. Cranial nerves II-XII grossly intact. Motor strength 5/5 in all extremities. Sensory grossly intact. Cerebellar exam normal. Normal gait. Psych: Awake, alert, with orientation to person, place and time. Behavior, mood, and affect are within normal limits. 15:40 Abdomen/GI: Inspection: distension, Bowel sounds: normal, Palpation: moderate abdominal tenderness, in the posterior aspect of right lateral abdomen, anterior aspect of right lateral abdomen, right lower quadrant and left lower quadrant, Liver: no appreciated palpable abnormalities, Hernia: not appreciated. 15:41 Musculoskeletal/extremity: DVT Exam: No signs of deep vein thrombosis. no pain, no isaak swelling, no tenderness, negative Homans' sign noted on exam, no appreciated bluish discoloration, no erythema, no increased warmth. Vital Signs: 15:20 BP 183 / 118; Pulse 92; Resp 20; Temp 98.3; Pulse Ox 96% on R/A; Weight 117.93 kg (R); aj1 Height 5 ft. 2 in. (157.48 cm) (R); Pain 8/10; 16:27 BP 162 / 113; Pulse 81; Resp 18; Pulse Ox 96% on R/A; aj1 17:30 BP 173 / 114; Pulse 82; Resp 18; Pulse Ox 99% on R/A; aj1 18:30 BP 176 / 114; Pulse 88; Resp 20; Pulse Ox 99% on R/A; aj1 19:08 BP 169 / 102; Pulse 87; Resp 18; Pulse Ox 99% on R/A; aj 15:20 Body Mass Index 47.55 (117.93 kg, 157.48 cm) [facility] MDM: 15:22 Patient medically screened. [facility] 15:41 Data reviewed: vital signs, nurses notes, lab test result(s), EKG, radiologic studies, [facility] CT scan, plain films. 10/14 15:39 Order name: Basic Metabolic Panel; Complete Time: 16:51 [facility] 10/14 15:39 Order name: CBC with Diff; Complete Time: 16:49 [facility] 10/14 15:39 Order name: Creatinine for Radiology; Complete Time: 17:48 [facility] 10/14 15:39 Order name: Hepatic Function; Complete Time: 16:51 [facility] 10/14 15:39 Order name: Lipase; Complete Time: 16:51 [facility] 10/14 15:39 Order name: Urine Culture [facility] 10/14 15:39 Order name: CT Stone Protocol; Complete Time: 17:48 [facility] 10/14 15:39 Order name: UDS; Complete Time: 17:16 [facility] 10/14 15:39 Order name: Troponin (emerg Dept Use Only); Complete Time: 16:51 [facility] 10/14 15:39 Order name: Chest Single View XRAY; Complete Time: 17:48 [facility] 10/14 15:40 Order name: Dilantin; Complete Time: 16:51 sc 10/14 17:01 Order name: Urine Dipstick--Ancillary (enter results) 10/14 17:01 Order name: Urine --Ancillary (enter results) sc 10/14 15:39 Order name: IV Saline Lock; Complete Time: 16:22 [facility] 10/14 15:39 Order name: Labs collected and sent; Complete Time: 16:22 [facility] 10/14 15:39 Order name: Urine Dipstick-Ancillary (obtain specimen); Complete Time: 16:32 [facility] 10/14 15:39 Order name: Urine Test (obtain specimen); Complete Time: 16:45 [facility] 10/14 15:39 Order name: EKG; Complete Time: 15:39 [facility] 10/14 15:39 Order name: EKG - Nurse/Tech; Complete Time: 16:23 [facility] Administered Medications: 16:23 Drug: TORadol 30 mg Route: IVP; Site: left wrist; aj1 17:00 Follow up: Response: No adverse reaction aj1 16:24 Drug: morphine 4 mg Route: IVP; Site: left wrist; aj1 17:00 Follow up: Response: No adverse reaction; Pain is decreased aj1 16:24 Drug: Zofran 4 mg Route: IVP; Site: left wrist; aj1 19:10 Follow up: Response: No adverse reaction aj1 16:56 CANCELLED (Duplicate Order): Norvasc 10 mg PO once isaak 17:08 Drug: morphine 4 mg Route: IVP; Site: left hand; ch 17:30 Follow up: Response: No adverse reaction aj1 17:26 Drug: Cipro 400 mg Volume: 200 ml; Route: IVPB; Infused Over: 60 mins; Site: left wrist;aj1 19:11 Follow up: IV Status: Completed infusion; IV Intake: 200ml aj1 18:17 Drug: Pepcid 20 mg Route: IVP; Site: left antecubital; aj1 19:12 Follow up: Response: No adverse reaction aj1 Disposition: 10/14/18 17:52 Discharged to Home. Impression: Urinary tract infection, site not specified, Abdominal tenderness, Essential (primary) hypertension, Functional dyspepsia, Other ovarian cysts, Obesity, unspecified. - Condition is Stable. - Discharge Instructions: Abdominal Pain, Adult, Hypertension, Nausea and Vomiting, Adult, Urinary Tract Infection, Adult, Urinary Tract Infection, Adult, Vzfc-ih-Tcnj, Abdominal Pain, Adult, Yjsi-fi-Hmzm, Hypertension, Niar-qx-Slbe, Tobacco Use Disorder, How to Take Your Blood Pressure, Ivlj-sl-Lrpw, Managing Your Hypertension. - Prescriptions for Norvasc 5 mg Oral Tablet - take 1 tablet by ORAL route once daily; 20 tablet. Tylenol- Codeine #3 300-30 mg Oral Tablet - take 2 tablets by ORAL route every 6 hours As needed; 24 tablet. Zofran 4 mg Oral Tablet - take 1 tablet by ORAL route every 12 hours As needed; 20 tablet. Cipro 500 mg Oral Tablet - take 1 tablet by ORAL route every 12 hours for 7 days; 14 tablet. - Medication Reconciliation Form, Thank You Letter, Antibiotic Education, Prescription Opioid Use form. - Follow up: Private Physician; When: 2 - 3 days; Reason: Recheck today's complaints, Continuance of care, Re-evaluation by your physician. Follow up: Chun El; When: 2 - 3 days; Reason: Recheck today's complaints, Continuance of care, Re-evaluation by your physician. - Problem is new. - Symptoms have improved. Signatures: Dispatcher [employer] EDAnayeli Becerril RN RN ch Johnson, Angela, RN RN aj1 David Horan RN RN sg Anderson, Corey, MD MD cha Corrections: (The following items were deleted from the chart) 16:56 16:56 Norvasc 10 mg PO once ordered. isaak mulligan 19:13 17:52 10/14/2018 17:52 Discharged to Home. Impression: Urinary tract infection, site aj1 not specified; Abdominal tenderness; Essential (primary) hypertension; Functional dyspepsia; Other ovarian cysts; Obesity, unspecified. Condition is Stable. Discharge Instructions: Abdominal Pain, Adult, Hypertension, Nausea and Vomiting, Adult, Urinary Tract Infection, Adult, Urinary Tract Infection, Adult, Tcxp-nh-Vlzl, Abdominal Pain, Adult, Csqg-qi-Vjaq, Hypertension, Xbtw-pt-Uvfq, How to Take Your Blood Pressure, Qdtx-ov-Ljls, Managing Your Hypertension. Prescriptions for Norvasc 5 mg Oral Tablet - take 1 tablet by ORAL route once daily; 20 tablet, Tylenol-Codeine #3 300-30 mg Oral Tablet - take 2 tablets by ORAL route every 6 hours As needed; 24 tablet, Zofran 4 mg Oral Tablet - take 1 tablet by ORAL route every 12 hours As needed; 20 tablet, Cipro 500 mg Oral Tablet - take 1 tablet by ORAL route every 12 hours for 7 days; 14 tablet. and Forms are Medication Reconciliation Form, Thank You Letter, Antibiotic Education, Prescription Opioid Use. Follow up: Private Physician; When: 2 - 3 days; Reason: Recheck today's complaints, Continuance of care, Re-evaluation by your physician. Follow up: Chun El; When: 2 - 3 days; Reason: Recheck today's complaints, Continuance of care, Re-evaluation by your physician. Problem is new. Symptoms have improved. isaak
--- NOTE | 2018-10-14 17:52 | ER ---
Nurse's Notes [facility] Name: Nelia Corley Age: 38 yrs Sex: Female : 1980 Arrival Date: 10/14/2018 Time: 14:59 Bed 7 Private MD: Diagnosis: Urinary tract infection, site not specified;Abdominal tenderness;Essential (primary) hypertension;Functional dyspepsia;Other ovarian cysts;Obesity, unspecified Presentation: 10/14 15:20 Presenting complaint: Patient states: Suprapubic pain and LLQ pain that radiates to her aj1 back along with nausea and vomiting since 0400 this morning. Patient states that she has a history of kidney stones and this is how she has felt in the past when she has had a kidney stone. Patient reports urinary frequency, denies dysuria. Transition of care: patient was not received from another setting of care. Onset of symptoms was October 14, 2018 at 04:00. Risk Assessment: Do you want to hurt yourself or someone else? Patient reports no desire to harm self or others. Initial Sepsis Screen: Does the patient meet any 2 criteria? HR > 90 bpm. No. Patient's initial sepsis screen is negative. Does the patient have a suspected source of infection? Yes: Dysuria/Frequency/Urgency/UTI Skin breakdown/wound. Care prior to arrival: None. 15:20 Method Of Arrival: Ambulatory [facility] 15:20 Acuity: JENNIFER 3 aj1 Triage Assessment: 15:20 General: Appears in no apparent distress. comfortable, Behavior is cooperative, aj1 anxious, restless. Pain: Complains of pain in right lower quadrant and suprapubic area Pain radiates to back. GRINDER HAND: 15:20 LMP 09/21/2018 [facility] Historical: - Allergies: 15:07 Ceclor; sg 15:07 Sulfa (Sulfonamide Antibiotics); sg - PMHx: 15:07 ADD/ADHD; Anxiety; CVA; Hyperlipidemia; Hypertension; NSTEMI; right rotator cuff torn; sg Seizures; - PSHx: 15:07 Cholecystectomy; ; sg - Immunization history:: Adult Immunizations up to date. - Social history:: Smoking status: Patient/guardian denies using tobacco. - Ebola Screening: : Patient negative for fever greater than or equal to 101.5 degrees Fahrenheit, and additional compatible Ebola Virus Disease symptoms Patient denies exposure to infectious person Patient denies travel to an Ebola-affected area in the 21 days before illness onset No symptoms or risks identified at this time. Screenin:24 Abuse screen: Denies threats or abuse. Denies injuries from another. Nutritional aj1 screening: No deficits noted. Tuberculosis screening: No symptoms or risk factors identified. 19:09 Fall Risk None identified. aj1 Assessment: 15:24 General: Appears in no apparent distress. uncomfortable, Behavior is cooperative, aj1 anxious, restless. Pain: Complains of pain in right lower quadrant and suprapubic area Pain radiates to back Pain currently is 8 out of 10 on a pain scale. Quality of pain is described as aching, sharp, Pain began 12 hours ago. Neuro: Level of Consciousness is awake, alert, obeys commands, Oriented to person, place, time, situation. Cardiovascular: Patient's skin is warm and dry. Respiratory: Airway is patent Respiratory effort is even, unlabored, Respiratory pattern is regular, symmetrical. GI: Abdomen is non-distended, Reports nausea, vomiting. : Reports urinary frequency. EENT: No signs and/or symptoms were reported regarding the EENT system. Derm: No signs and/or symptoms reported regarding the dermatologic system. Skin is pink, warm \T\ dry. normal. Musculoskeletal: No signs and/or symptoms reported regarding the musculoskeletal system. Circulation, motion, and sensation intact. 16:27 Reassessment: Patient appears in no apparent distress at this time. No changes from aj1 previously documented assessment. Patient and/or family updated on plan of care and expected duration. Pain level reassessed. Patient is alert, oriented x 3, equal unlabored respirations, skin warm/dry/pink. 17:00 Reassessment: Patient appears in no apparent distress at this time. pt states I cannot ch go to CT unless I have some pain medication. pt medicated per orders. 18:00 Reassessment: Patient and/or family updated on plan of care and expected duration. Pain aj1 level reassessed. General: Appears in no apparent distress. uncomfortable, Behavior is calm, cooperative, appropriate for age. Neuro: Level of Consciousness is awake, alert, obeys commands, Oriented to person, place, time, situation. Cardiovascular: Patient's skin is warm and dry. Respiratory: Airway is patent Respiratory effort is even, unlabored, Respiratory pattern is regular, symmetrical. GI: Abdomen is non-distended. Derm: Skin is pink, warm \T\ dry. normal. Musculoskeletal: No signs and/or symptoms reported regarding the musculoskeletal system. Circulation, motion, and sensation intact. 19:06 Reassessment: Patient appears in no apparent distress at this time. No changes from aj previously documented assessment. Patient and/or family updated on plan of care and expected duration. Pain level reassessed. Patient is alert, oriented x 3, equal unlabored respirations, skin warm/dry/pink. Vital Signs: 15:20 BP 183 / 118; Pulse 92; Resp 20; Temp 98.3; Pulse Ox 96% on R/A; Weight 117.93 kg (R); aj1 Height 5 ft. 2 in. (157.48 cm) (R); Pain 8/10; 16:27 BP 162 / 113; Pulse 81; Resp 18; Pulse Ox 96% on R/A; aj1 17:30 BP 173 / 114; Pulse 82; Resp 18; Pulse Ox 99% on R/A; aj1 18:30 BP 176 / 114; Pulse 88; Resp 20; Pulse Ox 99% on R/A; aj1 19:08 BP 169 / 102; Pulse 87; Resp 18; Pulse Ox 99% on R/A; aj1 15:20 Body Mass Index 47.55 (117.93 kg, 157.48 cm) [facility] ED Course: 14:59 Patient arrived in ED. as 15:07 Arm band placed on. sg 15:19 Aarti Chacon, RN is Primary Nurse. aj1 15:21 Triage completed. aj1 15:22 Cj Mckeon MD is Attending Physician. [facility] 15:24 Patient has correct armband on for positive identification. Bed in low position. Call [facility] light in reach. Side rails up X 1. 15:24 No provider procedures requiring assistance completed. aj1 16:04 Radiology exam delayed due to test not completed at this time. kw1 16:07 Inserted saline lock: 24 gauge in left wrist, using aseptic technique. Blood collected. aj1 16:13 Chest Single View XRAY In Process Unspecified. EDMS 16:31 Urine collected: clean catch specimen, trey colored. dh3 17:12 CT Stone Protocol In Process Unspecified. EDMS 17:51 Chun El MD is Referral Physician. [facility] 19:09 IV discontinued, intact, bleeding controlled, No redness/swelling at site. Pressure aj1 dressing applied. Administered Medications: 16:23 Drug: TORadol 30 mg Route: IVP; Site: left wrist; aj1 17:00 Follow up: Response: No adverse reaction aj1 16:24 Drug: morphine 4 mg Route: IVP; Site: left wrist; aj1 17:00 Follow up: Response: No adverse reaction; Pain is decreased aj1 16:24 Drug: Zofran 4 mg Route: IVP; Site: left wrist; aj1 19:10 Follow up: Response: No adverse reaction aj1 16:56 CANCELLED (Duplicate Order): Norvasc 10 mg PO once [facility] 17:08 Drug: morphine 4 mg Route: IVP; Site: left hand; 17:30 Follow up: Response: No adverse reaction aj1 17:26 Drug: Cipro 400 mg Volume: 200 ml; Route: IVPB; Infused Over: 60 mins; Site: left wrist;aj1 19:11 Follow up: IV Status: Completed infusion; IV Intake: 200ml aj1 18:17 Drug: Pepcid 20 mg Route: IVP; Site: left antecubital; aj1 19:12 Follow up: Response: No adverse reaction aj1 Intake: 19:11 IV: 200ml; Total: 200ml. aj1 Outcome: 17:52 Discharge ordered by . isaak 19:12 Discharged to home ambulatory. aj1 19:12 Condition: good 19:12 Discharge instructions given to patient, Instructed on discharge instructions, follow up and referral plans. no drinking with medication, no driving heavy equipment, medication usage, Demonstrated understanding of instructions, follow-up care, medications, Prescriptions given X 4. 19:13 Patient left the ED. aj1 Signatures: Dispatcher [employer] EDMS Anayeli Lamb RN RN ch Johnson, Angela, RN RN andrew1 David Horan RN RN sg Anderson, Corey, MD MD cha Martinez, Amelia as Herrera, [facility] Merlene Kovacs1
[2018-10-14 20:13] VITALS: TEMP 98.3
[2018-10-14 20:14] VITALS: O2SAT 99
[2018-10-14 20:16] VITALS: BP 169/102
[2018-10-14 20:39] LABS: Urine Blood 2+ (NEG); Urine Glucose NEGATIVE (NEG); Urine Protein 1+ (NEG)
--- NOTE | 2018-10-15 08:49 | EKG ---
Test Date: 2018-10-14 Test Time: 16:17:13 [place] Typist: ELI MEASUREMENT RESULTS: Intervals: Rate: 82 OK: 144 QRSD: 76 QT: 390 QTc: 455 [place]: P: 41 OK: 144 QRS: 35 T: 51 INTERPRETIVE STATEMENTS: Normal sinus rhythm Normal ECG Compared to ECG 09/20/2018 05:40:04 No significant changes Electronically Signed On 10-15-18 08:48:39 WINTERIZER by Nile Price
== END 2018-10-14 19:13 | disposition home or self-care (01) ==
LOC: ER 14:58
DX: N39.0 Urinary tract infection, site not specified (principal); K30 Functional dyspepsia; N83.209 Unspecified ovarian cyst, unspecified side; E66.9 Obesity, unspecified; Z68.42 Body mass index [BMI] 45.0-49.9, adult; F90.9 Attention-deficit hyperactivity disorder, unspecified type; F41.9 Anxiety disorder, unspecified; E78.5 Hyperlipidemia, unspecified; I10 Essential (primary) hypertension; Z86.73 Personal history of transient ischemic attack (TIA), and cerebral infarction without residual deficits; Z88.1 Allergy status to other antibiotic agents; Z88.2 Allergy status to sulfonamides
CPT/HCPCS: 36415; 71045; 74176; 76377; 80048; 80076; 80185; 80307; 81003; 81025; 83690; 84484; 85025; 87086; 87088; 93005; 99284; C9113; J0744; J2405; J7030

== ENCOUNTER 2018-12-04 21:13 | Emergency (ER) | payer OTHER ==
--- OUTSIDE RECORDS SUMMARY | 2018-12-04 21:15 | XMS REPORT | Clinical Summary ---
:1980 [address] [facility] [employer] [facility] Address [address] [place] [address] Care Team Providers Name Role Phone Louie [...] Not on file Results Not on fileafter 12/03/2017 Insurance Payer Benefit Plan / Subscriber ID Type Phone Address Group MEDICAID - MEDICAID [facility] xxxxxxxxx Medicaid Contracted [employer] CARE PLAN Advance Directives For more information, please contact:[facility] [employer] [id number] [place], [place] [phone] Code Status Date Activated Date Inactivated Comments Full Code 10/14/2016 3:43 PM 10/18/2016 2:41 AM This code status was determined by: Patient
--- OUTSIDE RECORDS SUMMARY | 2018-12-04 21:16 | XMS REPORT ---
:1980 [facility] Address [address] [place] [id number] Care Team Providers Name Role Phone MILAGRO [...] Range Comments ANTICARDIOLIPIN IGG ANTIBODY (BEAKER) (test ooyf=336) < GPL ANTICARDIOLIPIN IGM ANTIBODY (BEAKER) (test tldv=046) 0.6 MPL Anticardiolipin IgG Result Interpretation: NEG:<20 GPL; U/mlPOS:>/=20 GPL ;U/mlAnticardiolipinIgM Result Interpretation: NEG:<20 MPL; U/mlPOS:>/= 20 MPL;U/[id number] 19:19:00 Test Item Value Reference Range Comments HOMOCYSTEINE (BEAKER) (test ocax=081) 19.1 umol/L 5.1-15.4 HEMOGLOBIN [id number] 16:55:00 Test Item Value Reference Range Comments HEMOGLOBIN A1C (BEAKER) (test rpby=375) 5.1 % 4.3-6.1 TSH/FREE T4 IF [id number] 16:00:00 Test Item Value Reference Range Comments THYROID STIMULATING HORMONE (BEAKER) (test 1.64 uIU/mL 0.35-4.94 unfk=028) VITAMIN B12 AND [id number] 16:00:00 Test Item Value Reference Range Comments VITAMIN B12 (BEAKER) (test rxsa=884) 241 pg/mL 213-816 FOLATE (BEAKER) (test zbhd=575) 3.7 ng/mL >=7.0 Effective 07/08/2014: Folate Reference Range ChangeNew: >=7.0 Previous: & gt;=5.4SEDIMENTATION [id number] 15:57:00 Test Item Value Reference Range Comments SEDIMENTATION RATE, ERYTHROCYTE (BEAKER) (test 8 mm/HR 0-20 ppoo=747) LIPID [id number] 15:32:00 Test Item Value Reference Range Comments TRIGLYCERIDES (BEAKER) (test yxtr=654) 98 mg/dL CHOLESTEROL (BEAKER) (test ddkw=728) 200 mg/dL HDL CHOLESTEROL (BEAKER) (test mjpx=833) 51 mg/dL LDL CHOLESTEROL CALCULATED (BEAKER) (test 129 mg/dL uskd=339) Triglyceride Reference Range: Low Risk <150 Borderline 150- 199 High Risk 200-499 Very High Risk >=500Cholesterol Reference Range: Low Risk <200 Borderline 200-239 High Risk > 240HDL Cholesterol Reference Range: Low Risk >=60 High Risk <40LDL Cholesterol Reference Range: Optimal <100 Near Optimal 100-129 Borderline 130-159 High 160-189 Very High >=190C-REACTIVE [id number] 15:30:00 Test Item Value Reference Range Comments C-REACTIVE PROTEIN (BEAKER) (test amqh=019) 2.96 mg/dL 0.00-0.50 CBC W/PLT COUNT & AUTO [id number] 15:05:00 Test Item Value Reference Range Comments WHITE BLOOD CELL COUNT (BEAKER) (test glue=478) 7.8 K/ L 4.0-10.0 RED BLOOD CELL COUNT (BEAKER) (test nvip=386) 5.50 M/ L 4.00-5.00 HEMOGLOBIN (BEAKER) (test ejwu=556) 16.4 GM/DL 12.0-15.0 HEMATOCRIT (BEAKER) (test lezd=768) 48.2 % 36.0-45.0 MEAN CORPUSCULAR VOLUME (BEAKER) (test trrx=201) 87.7 fL 82.0-99.0 MEAN CORPUSCULAR HEMOGLOBIN (BEAKER) (test 29.8 pg 27.0-33.0 jlaz=531) MEAN CORPUSCULAR HEMOGLOBIN CONC (BEAKER) (test 34.0 GM/DL 32.0-36.0 sfwi=480) RED CELL DISTRIBUTION WIDTH (BEAKER) (test 15.3 % 10.3-14.2 nxys=405) PLATELET COUNT (BEAKER) (test ftvl=153) 217 K/CU MM 150-430 MEAN PLATELET VOLUME (BEAKER) (test rhqs=839) 7.3 fL 6.5-10.5 NUCLEATED RED BLOOD CELLS (BEAKER) (test 0 /100 WBC 0-0 gmbq=559) NEUTROPHILS RELATIVE PERCENT (BEAKER) (test 67 % aebp=236) LYMPHOCYTES RELATIVE PERCENT (BEAKER) (test 22 % qayh=212) MONOCYTES RELATIVE PERCENT (BEAKER) (test 8 % oyrt=229) EOSINOPHILS RELATIVE PERCENT (BEAKER) (test 1 % eqfq=831) BASOPHILS RELATIVE PERCENT (BEAKER) (test 2 % xbrb=129) NEUTROPHILS ABSOLUTE COUNT (BEAKER) (test 5.25 K/ L 1.80-8.00 gbaq=237) LYMPHOCYTES ABSOLUTE COUNT (BEAKER) (test 1.68 K/ L 1.48-4.50 peax=711) MONOCYTES ABSOLUTE COUNT (BEAKER) (test 0.65 K/ L 0.00-1.30 ozpu=913) EOSINOPHILS ABSOLUTE COUNT (BEAKER) (test 0.09 K/ L 0.00-0.50 vmge=936) BASOPHILS ABSOLUTE COUNT (BEAKER) (test 0.14 K/ L 0.00-0.20 lytr=096) [id number] 07:34:00 Test Item Value Reference Range Comments MAGNESIUM (BEAKER) (test 2.0 mg/dL 1.6-2.6 Specimen slightly hemolyzed geir=024) BASIC METABOLIC [id number] 07:33:00 Test Item Value Reference Range Comments SODIUM (BEAKER) (test 136 meq/L 136-145 fexp=768) POTASSIUM (BEAKER) (test 4.1 meq/L 3.5-5.1 zejv=085) CHLORIDE (BEAKER) (test 107 meq/L 98-107 nhkg=526) CO2 (BEAKER) (test 20 meq/L 22-29 jezu=933) BLOOD UREA NITROGEN 10 mg/dL 7-21 (BEAKER) (test soqv=273) CREATININE (BEAKER) (test 0.72 mg/dL 0.57-1.25 zhhk=452) GLUCOSE RANDOM (BEAKER) 84 mg/dL 70-105 (test ncce=026) CALCIUM (BEAKER) (test 8.3 mg/dL 8.4-10.2 lfjd=453) EGFR (BEAKER) (test 91 mL/min/1.73 sq m ESTIMATED GFR IS NOT hvic=5173) ACCURATE CREATININE CLEARANCE IN PREDICTING GLOMERULAR FILTRATION RATE. ESTIMATED GFR IS NOT APPLICABLE FOR DIALYSIS PATIENTS. [id number] 07:27:00 Test Item Value Reference Range Comments MAGNESIUM (BEAKER) (test jisy=327) 1.7 mg/dL 1.6-2.6 SCREEN, [id number] 13:54:00 Test Item Value Reference Range Comments TEST URINE (BEAKER) (test qppq=753) Negative [id number] 02:55:00 Test Item Value Reference Range Comments MAGNESIUM (BEAKER) (test lujb=907) 1.8 mg/dL 1.6-2.6 PHENYTOIN LEVEL, [id number] 00:30:00 Test Item Value Reference Range Comments PHENYTOIN (DILANTIN) (BEAKER) (test smvx=261) 7.3 ug/mL 10.0-20.0 HEPATIC FUNCTION [id number] 00:26:00 Test Item Value Reference Range Comments TOTAL PROTEIN (BEAKER) (test yjzo=357) 6.4 gm/dL 6.0-8.3 ALBUMIN (BEAKER) (test whho=8292) 3.8 g/dL 3.5-5.0 BILIRUBIN TOTAL (BEAKER) (test coyj=415) 0.4 mg/dL 0.2-1.2 BILIRUBIN DIRECT (BEAKER) (test gmom=077) 0.2 mg/dL 0.1-0.5 ALKALINE PHOSPHATASE (BEAKER) (test fihq=867) 114 U/L 40-150 AST (SGOT) (BEAKER) (test mtnt=367) 16 U/L 5-34 ALT (SGPT) (BEAKER) (test ddxz=281) 20 U/L 6-55 BASIC METABOLIC [id number] 00:26:00 Test Item Value Reference Range Comments SODIUM (BEAKER) (test 138 meq/L 136-145 jbbi=901) POTASSIUM (BEAKER) (test 4.0 meq/L 3.5-5.1 vlpn=114) CHLORIDE (BEAKER) (test 109 meq/L 98-107 cwcz=308) CO2 (BEAKER) (test 21 meq/L 22-29 vvuy=199) BLOOD UREA NITROGEN 7 mg/dL 7-21 (BEAKER) (test xddf=214) CREATININE (BEAKER) (test 0.74 mg/dL 0.57-1.25 anxh=943) GLUCOSE RANDOM (BEAKER) 103 mg/dL 70-105 (test xolg=731) CALCIUM (BEAKER) (test 9.0 mg/dL 8.4-10.2 yftu=936) EGFR (BEAKER) (test 88 mL/min/1.73 sq m ESTIMATED GFR IS NOT ttnv=8487) ACCURATE CREATININE CLEARANCE IN PREDICTING GLOMERULAR FILTRATION RATE. ESTIMATED GFR IS NOT APPLICABLE FOR DIALYSIS PATIENTS. [id number] 00:26:00 Test Item Value Reference Range Comments ALBUMIN (BEAKER) (test xnnb=3664) 3.8 g/dL 3.5-5.0 CBC W/PLT COUNT & AUTO [id number] 00:16:00 Test Item Value Reference Range Comments WHITE BLOOD CELL COUNT (BEAKER) (test sbab=014) 10.1 K/ L 4.0-10.0 RED BLOOD CELL COUNT (BEAKER) (test hbva=345) 5.45 M/ L 4.00-5.00 HEMOGLOBIN (BEAKER) (test etqs=309) 15.5 GM/DL 12.0-15.0 HEMATOCRIT (BEAKER) (test vczn=592) 48.8 % 36.0-45.0 MEAN CORPUSCULAR VOLUME (BEAKER) (test bpnm=170) 89.6 fL 82.0-99.0 MEAN CORPUSCULAR HEMOGLOBIN (BEAKER) (test 28.4 pg 27.0-33.0 csbi=279) MEAN CORPUSCULAR HEMOGLOBIN CONC (BEAKER) (test 31.7 GM/DL 32.0-36.0 uzte=618) RED CELL DISTRIBUTION WIDTH (BEAKER) (test 15.5 % 10.3-14.2 nany=828) PLATELET COUNT (BEAKER) (test afnn=608) 260 K/CU MM 150-430 MEAN PLATELET VOLUME (BEAKER) (test rsii=964) 7.7 fL 6.5-10.5 NUCLEATED RED BLOOD CELLS (BEAKER) (test 0 /100 WBC 0-0 vmja=796) NEUTROPHILS RELATIVE PERCENT (BEAKER) (test 83 % pivb=056) LYMPHOCYTES RELATIVE PERCENT (BEAKER) (test 12 % issr=019) MONOCYTES RELATIVE PERCENT (BEAKER) (test 4 % pent=514) EOSINOPHILS RELATIVE PERCENT (BEAKER) (test 0 % bhej=740) BASOPHILS RELATIVE PERCENT (BEAKER) (test 0 % shrq=785) NEUTROPHILS ABSOLUTE COUNT (BEAKER) (test 8.39 K/ L 1.80-8.00 bitu=738) LYMPHOCYTES ABSOLUTE COUNT (BEAKER) (test 1.24 K/ L 1.48-4.50 cowz=193) MONOCYTES ABSOLUTE COUNT (BEAKER) (test 0.40 K/ L 0.00-1.30 fvrf=175) EOSINOPHILS ABSOLUTE COUNT (BEAKER) (test 0.03 K/ L 0.00-0.50 ilba=757) BASOPHILS ABSOLUTE COUNT (BEAKER) (test 0.03 K/ L 0.00-0.20 sfaw=514) 0.00
[2018-12-04] MEDS ORDERED: ONDANSETRON 4 MG/2 ML VIAL ONE (22:02)
[2018-12-04] MEDS ORDERED: MEPERIDINE HCL 50 MG/ML AMP ONE (22:02)
[2018-12-04] MEDS ORDERED: NA CHLORIDE 0.9% 1,000 ML ONE (22:02)
[2018-12-04 22:17] LABS: Absolute Lymphocytes (CBC) 2.6 K/uL (0.7-4.9); Absolute Monocytes 0.8 K/uL (0.1-1.3); Basophils % 0.4 % (0-1.3); Eosinophils % 1.5 % (0-4.4); Hematocrit 45.7 % (36.0-45.0); Lymphocytes % 22.6 % (15.3-44.8); MPV 8.6 fL (7.6-11.3); Monocytes % 7.1 % (3.3-12.3); RBC Red Blood Cell Count 4.98 M/uL (3.86-4.86)
[2018-12-04 22:37] LABS: Albumin 3.4 g/dL (3.4-5.0); Bilirubin Direct 0.1 mg/dL (0-0.2); Bilirubin Total 0.6 mg/dL (0.2-1.0); Potassium 3.5 mmol/L (3.5-5.1); Protein, Total 6.9 g/dL (6.4-8.2)
[2018-12-04] MEDS ORDERED: MORPHINE 4 MG/ML SYR ONE (23:17)
[2018-12-05] MEDS ORDERED: LABETALOL 20 MG/4ML SYRINGE IV ONE (01:27)
[2018-12-05] MEDS ORDERED: MORPHINE 4 MG/ML SYR ONE (01:27)
[2018-12-05 01:33] LABS: Urine Blood 3+ (NEG); Urine Glucose NEGATIVE (NEG); Urine Protein NEGATIVE (NEG)
[2018-12-05] MEDS ORDERED: HYDRALAZINE HCL 20 MG/ML VIAL ONE ×2 (03:00→03:01)
[2018-12-05] MEDS ORDERED: NA CHLORIDE 0.9% 1,000 ML ONE (03:01)
--- NOTE | 2018-12-05 03:22 | EDPHYS ---
Physician Documentation [facility] Name: Nelia Corley Age: 38 yrs Sex: Female : 1980 Arrival Date: 12/04/2018 Time: 21:15 Bed 3 Private MD: ED Physician Skyler Humphrey HPI: 12/04 21:48 This 38 yrs old Female presents to ER via EMS with unknown complaint. pkl 21:48 The patient presents with abdominal pain in the right upper quadrant. Onset: The pkl symptoms/episode began/occurred just prior to arrival, 4 hour(s) ago. The symptoms do not radiate. Associated signs and symptoms: Pertinent positives: nausea and vomiting. 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 - Social history:: Smoking status: Patient uses tobacco products, smokes one pack cigarettes per day. - Ebola Screening: : Patient negative for fever greater than or equal to 101.5 degrees Fahrenheit, and additional compatible Ebola Virus Disease symptoms. ROS: 21:48 Eyes: Negative for injury, pain, redness, and discharge, ENT: Negative for injury, pkl pain, and discharge, Neck: Negative for injury, pain, and swelling, Cardiovascular: Negative for chest pain, palpitations, and edema, Respiratory: Negative for shortness of breath, cough, wheezing, and pleuritic chest pain. 21:48 Abdomen/GI: Positive for abdominal pain, nausea and vomiting, of the right upper quadrant. 21:48 Back: Negative for acute changes. 21:48 : Negative for urinary symptoms. 21:48 MS/extremity: Negative for acute changes. 21:48 Skin: Negative for rash. 21:48 Neuro: Negative for altered mental status. Exam: 21:48 Head/Face: Normocephalic, atraumatic. Eyes: Pupils equal round and reactive to light, pkl extra-ocular motions intact. Lids and lashes normal. Conjunctiva and sclera are non-icteric and not injected. Cornea within normal limits. Periorbital areas with no swelling, redness, or edema. ENT: Nares patent. No nasal discharge, no septal abnormalities noted. Tympanic membranes are normal and external auditory canals are clear. Oropharynx with no redness, swelling, or masses, exudates, or evidence of obstruction, uvula midline. Mucous membranes moist. Neck: Trachea midline, no thyromegaly or masses palpated, and no cervical lymphadenopathy. Supple, full range of motion without nuchal rigidity, or vertebral point tenderness. No Meningismus. Chest/axilla: Normal chest wall appearance and motion. Nontender with no deformity. No lesions are appreciated. Cardiovascular: Regular rate and rhythm with a normal S1 and S2. No gallops, murmurs, or rubs. Normal PMI, no JVD. No pulse deficits. Respiratory: Lungs have equal breath sounds bilaterally, clear to auscultation and percussion. No rales, rhonchi or wheezes noted. No increased work of breathing, no retractions or nasal flaring. 21:48 Abdomen/GI: Bowel sounds: normal, Palpation: soft, mild abdominal tenderness, in the right upper quadrant. 21:48 Back: Exam negative for acute changes. 21:48 : Exam negative for acute changes. 21:48 Musculoskeletal/extremity: Exam is negative for acute changes. 21:48 Skin: Exam negative for rash. 21:48 Neuro: Orientation: is normal, Mentation: is normal, Cranial nerves: grossly normal, Motor: is normal. Vital Signs: 21:33 BP 96 / 67; Pulse 92; Resp 19 S; Temp 98.4(O); Pulse Ox 98% on R/A; Weight 113.4 kg jd3 (R); Height 5 ft. 2 in. (157.48 cm) (R); Pain 10/10; 22:24 BP 104 / 68; Pulse 78; Resp 19 S; Pulse Ox 97% on R/A; jd3 0417 00:33 Pulse 68; Resp 17 S; Pulse Ox 95% on R/A; jd3 01:10 BP 187 / 106; Pulse 84; Resp 19 S; Pulse Ox 97% on R/A; Pain 10/10; jd3 02:00 BP 197 / 122; Pulse 87; Resp 16 S; Pulse Ox 96% on R/A; jd3 02:53 BP 201 / 120; jd3 03:12 BP 149 / 87; Pulse 79; Resp 17 S; Pulse Ox 96% on R/A; jd3 12/04 21:33 Body Mass Index 45.73 (113.40 kg, 157.48 cm) jd3 02:53 notified provider of continued high blood pressure, new orders recieved. jd3 MDM: 12/04 21:16 Patient medically screened. pkl 12/05 03:19 Data reviewed: vital signs, nurses notes, lab test result(s), radiologic studies, CT pkl scan. 12/04 21:48 Order name: Basic Metabolic Panel pkl 12/04 21:48 Order name: CBC with Diff; Complete Time: 23:04 pkl 12/04 21:48 Order name: Creatinine for Radiology; Complete Time: 23:04 pkl 12/04 21:48 Order name: Hepatic Function; Complete Time: 23:04 pkl 12/04 21:48 Order name: Lipase; Complete Time: 23:04 pkl 12/04 21:48 Order name: Basic Metabolic Panel; Complete Time: 23:04 EDMS 12/04 23:05 Order name: CT Abd/Pelvis - W/Contrast pkl 12/05 00:19 Order name: Urine Dipstick--Ancillary (enter results); Complete Time: 03:32 mw2 12/05 00:19 Order name: Urine --Ancillary (enter results); Complete Time: 03:32 mw2 12/04 21:48 Order name: IV Saline Lock; Complete Time: 22:22 pkl 12/04 21:48 Order name: Labs collected and sent; Complete Time: 22:21 pkl Administered Medications: 12/04 22:21 Drug: NS 0.9% 1000 ml Route: IV; Rate: 1000 ml; Site: right forearm; jd3 12/05 01:26 Follow up: Response: No adverse reaction; IV Status: Completed infusion jd3 12/04 22:22 Drug: Demerol 50 mg Route: IVP; Site: right forearm; jd3 12/05 00:36 Follow up: Response: No adverse reaction jd3 12/04 22:22 Drug: Zofran 4 mg Route: IVP; Site: right forearm; jd3 12/05 00:37 Follow up: Response: No adverse reaction jd3 12/04 23:07 Drug: morphine 4 mg Route: IVP; Site: right forearm; jd3 12/05 00:37 Follow up: Response: No adverse reaction jd3 01:23 Drug: Trandate 20 mg Route: IVP; Site: right forearm; jd3 03:00 Follow up: Response: No adverse reaction jd3 01:23 Drug: morphine 4 mg Route: IVP; Site: right forearm; jd3 03:00 Follow up: Response: No adverse reaction jd3 02:55 Drug: hydrALAZINE 25 mg Route: IV; Rate: calculated rate; Site: right forearm; jd3 03:38 Follow up: Response: No adverse reaction; Blood pressure is lowered; IV Status: jd3 Completed infusion 02:55 Drug: NS 0.9% 1000 ml Route: IV; Rate: 100 ml/hr; Site: right forearm; jd3 03:38 Follow up: Response: No adverse reaction; IV Status: Order to discontinue infusion jd3 03:23 Drug: Zofran 4 mg Route: PO; jd3 03:35 Follow up: Response: Medication administered at discharge. jd3 03:26 Drug: [place] 5 mg-325 mg 1 tabs Route: PO; jd3 03:36 Follow up: Response: Medication administered at discharge. jd3 Disposition: 12/05/18 03:21 Discharged to Home. Impression: Abdominal pain ( Right upper quadrant ). Hypertension. Left ovarian cyst. - Condition is Stable. - Prescriptions for Ultram 50 mg Oral Tablet - take 1 tablet by ORAL route every 8 hours As needed; 20 tablet. Zofran 4 mg Oral Tablet - take 1 tablet by ORAL route every 12 hours As needed; 10 tablet. Carvedilol 12.5 mg Oral Tablet - take 1 tablet by ORAL route 2 times per day with food; 60 tablet. Tylenol- Codeine #3 300-30 mg Oral Tablet - take 1 tablet by ORAL route every 8 hours As needed; 20 tablet. - Medication Reconciliation Form, Thank You Letter, Antibiotic Education, Prescription Opioid Use form. - Follow up: Lior Mirza MD; When: 1 - 2 days; Reason: Re-evaluation by your physician. - Problem is new. - Symptoms have improved. Signatures: Dispatcher [employer] EDMS Skyler Humphrey MD MD pkl Miranda Majano, RN RN Julius Sparrow RN RN jd3 Corrections: (The following items were deleted from the chart) 03:23 03:21 12/05/2018 03:21 Discharged to Home. Impression: Abdominal pain ( Right upper pkl quadrant ). Hypertension. Condition is Stable. Forms are Medication Reconciliation Form, Thank You Letter, Antibiotic Education, Prescription Opioid Use. Follow up: Lior Mirza; When: 1 - 2 days; Reason: Re-evaluation by your physician. Problem is new. Symptoms have improved. pkl 03:39 03:23 12/05/2018 03:21 Discharged to Home. Impression: Abdominal pain ( Right upper jd3 quadrant ). Hypertension. Left ovarian cyst. Condition is Stable. Prescriptions for Ultram 50 mg Oral Tablet - take 1 tablet by ORAL route every 8 hours As needed; 20 tablet, Zofran 4 mg Oral Tablet - take 1 tablet by ORAL route every 12 hours As needed; 10 tablet, Carvedilol 12.5 mg Oral Tablet - take 1 tablet by ORAL route 2 times per day with food; 60 tablet. and Forms are Medication Reconciliation Form, Thank You Letter, Antibiotic Education, Prescription Opioid Use. Follow up: Lior Mirza; When: 1 - 2 days; Reason: Re-evaluation by your physician. Problem is new. Symptoms have improved. pkl
--- NOTE | 2018-12-05 03:22 | ER ---
Nurse's Notes [facility] Name: Nelia Corley Age: 38 yrs Sex: Female : 1980 Arrival Date: 12/04/2018 Time: 21:15 Bed 3 Private MD: Diagnosis: Abdominal pain ( Right upper quadrant ). Hypertension. Left ovarian cyst Presentation: 12/04 21:30 Presenting complaint: EMS states: "Pt reporting abdominal pain that started about 4 jd3 hours ago with nausea and vomiting.". Transition of care: patient was not received from another setting of care. Onset of symptoms was December 04, 2018. Risk Assessment: Do you want to hurt yourself or someone else? Patient reports no desire to harm self or others. Initial Sepsis Screen: Does the patient meet any 2 criteria? No. Patient's initial sepsis screen is negative. Does the patient have a suspected source of infection? No. Patient's initial sepsis screen is negative. Care prior to arrival: None. 21:30 Method Of Arrival: EMS: [facility] jd3 21:30 Acuity: JENNIFER 3 jd3 BAKER HELPER: 22:00 LMP N/A - Irregular menses jd3 Historical: - Allergies: 21:33 Ceclor; jd3 21:33 Sulfa (Sulfonamide Antibiotics); jd3 12/05 03:36 Ultram; jd3 - Home Meds: 12/04 21:33 Phenytoin 100 MG EVERY 8 HOURS Oral [Active]; jd3 - PMHx: 21:33 CVA; Hypertension; Anxiety; NSTEMI; right rotator cuff torn; Seizures; ADD/ADHD; jd3 Hyperlipidemia; - PSHx: 21:33 Cholecystectomy; ; jd3 - Immunization history:: Adult Immunizations up to date. - Social history:: Smoking status: Patient uses tobacco products, smokes one pack cigarettes per day. - Ebola Screening: : Patient negative for fever greater than or equal to 101.5 degrees Fahrenheit, and additional compatible Ebola Virus Disease symptoms. Screenin:36 Abuse screen: Denies threats or abuse. Nutritional screening: No deficits noted. jd3 Tuberculosis screening: No symptoms or risk factors identified. Fall Risk Ambulatory Aid- None/Bed Rest/Nurse Assist (0 pts). Gait- Normal/Bed Rest/Wheelchair (0 pts) Mental Status- Oriented to own ability (0 pts). Total Babcock Fall Scale indicates No Risk (0-24 pts). Assessment: 21:34 General: Appears in no apparent distress. uncomfortable, Behavior is cooperative, jd3 appropriate for age, anxious, crying. Pain: Complains of pain in abdomen Pain currently is 10 out of 10 on a pain scale. Quality of pain is described as sharp, stabbing. Neuro: Level of Consciousness is awake, alert, obeys commands, Oriented to person, place, time, situation, Appropriate for age. Cardiovascular: Heart tones present Capillary refill < 3 seconds Patient's skin is warm and dry. Respiratory: Airway is patent Respiratory effort is even, unlabored, Respiratory pattern is regular, symmetrical, Breath sounds are clear bilaterally. GI: Abdomen is round Bowel sounds present X 4 quads. Abd is soft Abdomen is tender to palpation X 4 quads. Reports nausea, vomiting. : No signs and/or symptoms were reported regarding the genitourinary system. EENT: No signs and/or symptoms were reported regarding the EENT system. Derm: Skin is intact, Skin is dry, Skin is normal, Skin temperature is warm. Musculoskeletal: Circulation, motion, and sensation intact. Range of motion: intact in all extremities. 22:24 Reassessment: Patient and/or family updated on plan of care and expected duration. Pain jd3 level reassessed. Patient is alert, oriented x 3, equal unlabored respirations, skin warm/dry/pink. 23:27 Reassessment: Patient and/or family updated on plan of care and expected duration. Pain jd3 level reassessed. Patient is alert, oriented x 3, equal unlabored respirations, skin warm/dry/pink. 12/05 00:33 Reassessment: Patient and/or family updated on plan of care and expected duration. Pain jd3 level reassessed. Patient is alert, oriented x 3, equal unlabored respirations, skin warm/dry/pink. pt reporting pain, provider notified. no new orders at this time. 01:11 Reassessment: Patient and/or family updated on plan of care and expected duration. Pain jd3 level reassessed. Patient is alert, oriented x 3, equal unlabored respirations, skin warm/dry/pink. provider notified of pain. 02:00 Reassessment: Patient appears in no apparent distress at this time. Patient and/or jd3 family updated on plan of care and expected duration. Pain level reassessed. Patient is alert, oriented x 3, equal unlabored respirations, skin warm/dry/pink. Patient states feeling better. 03:38 Reassessment: Patient appears in no apparent distress at this time. Patient and/or jd3 family updated on plan of care and expected duration. Pain level reassessed. Patient is alert, oriented x 3, equal unlabored respirations, skin warm/dry/pink. Vital Signs: 12/04 21:33 BP 96 / 67; Pulse 92; Resp 19 S; Temp 98.4(O); Pulse Ox 98% on R/A; Weight 113.4 kg jd3 (R); Height 5 ft. 2 in. (157.48 cm) (R); Pain 10/10; 22:24 BP 104 / 68; Pulse 78; Resp 19 S; Pulse Ox 97% on R/A; jd3 12/05 00:33 Pulse 68; Resp 17 S; Pulse Ox 95% on R/A; jd3 01:10 BP 187 / 106; Pulse 84; Resp 19 S; Pulse Ox 97% on R/A; Pain 10/10; jd3 02:00 BP 197 / 122; Pulse 87; Resp 16 S; Pulse Ox 96% on R/A; jd3 02:53 BP 201 / 120; jd3 03:12 BP 149 / 87; Pulse 79; Resp 17 S; Pulse Ox 96% on R/A; jd3 12/04 21:33 Body Mass Index 45.73 (113.40 kg, 157.48 cm) jd3 02:53 notified provider of continued high blood pressure, new orders recieved. d3 ED Course: 12/04 21:15 Patient arrived in ED. ds1 21:16 Skyler Humphrey MD is Attending Physician. pkl 21:28 Julius Lay, LELO is Primary Nurse. jd3 21:31 Triage completed. jd3 21:34 Arm band placed on. jd3 21:36 Patient has correct armband on for positive identification. Bed in low position. Call [facility] light in reach. Side rails up X 1. Adult w/ patient. 22:00 Initial lab(s) drawn, by me, sent to lab. Missed attempt(s): 20 gauge in left forearm. bb Bleeding controlled, band aid applied, catheter tip intact. 22:20 Inserted saline lock: 22 gauge in right forearm, using aseptic technique. placed by sandro Mejía RN. 23:38 Radiology exam delayed due to test not completed at this time. kw1 12/05 00:13 CT Abd/Pelvis - W/Contrast In Process Unspecified. EDMS 03:19 Lior Mirza MD is Referral Physician. pkl 03:37 No provider procedures requiring assistance completed. IV discontinued, intact, jd3 bleeding controlled, No redness/swelling at site. Pressure dressing applied. Administered Medications: 12/04 22:21 Drug: NS 0.9% 1000 ml Route: IV; Rate: 1000 ml; Site: right forearm; jd3 12/05 01:26 Follow up: Response: No adverse reaction; IV Status: Completed infusion jd3 12/04 22:22 Drug: Demerol 50 mg Route: IVP; Site: right forearm; jd3 12/05 00:36 Follow up: Response: No adverse reaction jd3 12/04 22:22 Drug: Zofran 4 mg Route: IVP; Site: right forearm; jd3 12/05 00:37 Follow up: Response: No adverse reaction jd3 12/04 23:07 Drug: morphine 4 mg Route: IVP; Site: right forearm; jd3 12/05 00:37 Follow up: Response: No adverse reaction jd3 01:23 Drug: Trandate 20 mg Route: IVP; Site: right forearm; jd3 03:00 Follow up: Response: No adverse reaction jd3 01:23 Drug: morphine 4 mg Route: IVP; Site: right forearm; jd3 03:00 Follow up: Response: No adverse reaction jd3 02:55 Drug: hydrALAZINE 25 mg Route: IV; Rate: calculated rate; Site: right forearm; jd3 03:38 Follow up: Response: No adverse reaction; Blood pressure is lowered; IV Status: jd3 Completed infusion 02:55 Drug: NS 0.9% 1000 ml Route: IV; Rate: 100 ml/hr; Site: right forearm; jd3 03:38 Follow up: Response: No adverse reaction; IV Status: Order to discontinue infusion jd3 03:23 Drug: Zofran 4 mg Route: PO; jd3 03:35 Follow up: Response: Medication administered at discharge. jd3 03:26 Drug: Madison 5 mg-325 mg 1 tabs Route: PO; jd3 03:36 Follow up: Response: Medication administered at discharge. jd3 Outcome: 03:21 Discharge ordered by . angelo 03:37 Discharged to home ambulatory, with family. jd3 03:37 Condition: stable 03:37 Discharge instructions given to patient, Instructed on discharge instructions, follow up and referral plans. medication usage, Demonstrated understanding of instructions, follow-up care, medications, Prescriptions given X 3. 03:39 Patient left the ED. jd3 Signatures: Dispatcher [employer] EDMS Skyler Humphrey MD MD pkl Sanford, Demi ds1 Miranda Majano RN RN Julius Sparrow RN RN jd3 Wilhelm, Kimberly kw1 Corrections: (The following items were deleted from the chart) 00:36 00:33 Reassessment: Patient and/or family updated on plan of care and expected jd3 duration. Pain level reassessed. Patient is alert, oriented x 3, equal unlabored respirations, skin warm/dry/pink. jd3 01:11 01:10 BP 187 / 106; Pulse 84bpm; Resp 19bpm; Spontaneous; Pulse Ox 97% RA; jd3 jd3 03:02 02:55 BP 201 / 120; notified provider of continued high blood pressure, new orders jd3 recieved.; jd3
[2018-12-05] MEDS ORDERED: HYDROCODONE/APAP 5/325 MG TAB ONE (03:31)
[2018-12-05] MEDS ORDERED: ONDANSETRON 4 MG (ODT) TAB ONE (03:34)
[2018-12-05 03:45] VITALS: TEMP 98.4
[2018-12-05 03:49] VITALS: O2SAT 96
[2018-12-05 03:51] VITALS: BP 149/87
--- NOTE | 2018-12-06 11:07 | RAD REPORT ---
EXAM DESCRIPTION: CT Abdomen and Pelvis With Intravenous Contrast CLINICAL HISTORY: The patient is 38 years old and is Female; ABD PAIN TECHNIQUE: Axial computed tomography images of the abdomen and pelvis with intravenous contrast. S agittal and coronal reformatted images were created and reviewed. This CT exam was performed using one or more of the following dose reduction techniques: automated exposure control, adjustment of t he mA and/or kV according to patient size, and/or use of iterative reconstruction technique. COMPARISON: None. FINDINGS: LUNG BASES: Unremarkable. No mass. No consolidation. ABDOMEN: LIVER: Unremarkable. No mass. GALLBLADDER AND BILE DUCTS: Prior cholecystectomy Cholecystectomy. No ductal dilation. PANCREAS: Unremarkable. No mass. No ductal dilation. SPLEEN: Unremarkable. No splenomegaly. ADRENALS: Unremarkable. No mass. KIDNEYS AND URETERS: Bilateral renal cysts are present measuring up to 1.9 cm on the right with sm all mural calcification. Calcifications are seen in the right renal collecting system, likely renal stones. No hydron ephrosis. STOMACH AND BOWEL: Enteric contrast is seen within the stomach and throughout the small bowel. Lar ge bowel is not opacified. No mucosal thickening. PELVIS: APPENDIX: The appendix is seen and is within normal limits. BLADDER: Unremarkable. No mass. REPRODUCTIVE: Mild enlargement of the uterus with small amount of endometrial fluid and 4.1 cm lef t ovarian cyst. ABDOMEN and PELVIS: INTRAPERITONEAL SPACE: Unremarkable. No free air. No significant fluid collection. BONES/JOINTS: Left-sided transitional lumbosacral anatomy and small retrolisthesis of L4 on L5. No acute fracture. No dislocation. SOFT TISSUES: Unremarkable. VASCULATURE: Unremarkable. No abdominal aortic aneurysm. LYMPH NODES: Unremarkable. No enlarged lymph nodes. IMPRESSION: 1. No acute abdominal or pelvic abnormality. 2. Bilateral renal cysts, largest of which is seen on the right measuring up to 1.9 cm with mural c alcification. Dedicated renal ultrasound is recommended. 3. Incompletely characterized physiologic pelvic changes with 4.1 cm left ovarian cyst. No follow-u p imaging is recommended. Reference: US recommendations based on Radiology 2010 Sep;256(3):943-54; CT /MR recommendations based on J Am Marcell Radiol 2013;10:675-681. 4. Prior cholecystectomy. 5. Left-sided transitional lumbosacral anatomy and small retrolisthesis of L4 on L5. Electronically signed by: Gamal Borja DO 12/05/2018 12:53 AM CDT Due to temporary technical issues with the PACS/Fluency reporting system, reports are being signed by the in house radiologist as a courtesy to ensure prompt reporting. The interpreting radiologist is f ully responsible for the content of the report.
== END 2018-12-05 03:39 | disposition home or self-care (01) ==
LOC: ER 21:13
DX: R10.11 Right upper quadrant pain (principal); N83.202 Unspecified ovarian cyst, left side; I10 Essential (primary) hypertension; Z86.73 Personal history of transient ischemic attack (TIA), and cerebral infarction without residual deficits; F41.9 Anxiety disorder, unspecified; E78.5 Hyperlipidemia, unspecified; Z88.1 Allergy status to other antibiotic agents; Z88.2 Allergy status to sulfonamides; F17.210 Nicotine dependence, cigarettes, uncomplicated
CPT/HCPCS: 36415; 74177; 80048; 80076; 81003; 81025; 83690; 85025; 96361; 96365; 96375; 99284; J0360; J2175; J2405; J7030

== ENCOUNTER 2019-08-19 17:58 | Emergency (ER) | payer OTHER ==
--- OUTSIDE RECORDS SUMMARY | 2019-08-19 18:00 | XMS REPORT ---
:1980 [facility] Address [address] [place] [id number] Care Team Providers Name Role Phone MILAGRO [...] Range Comments ANTICARDIOLIPIN IGG ANTIBODY (BEAKER) (test digg=262) < GPL ANTICARDIOLIPIN IGM ANTIBODY (BEAKER) (test ihts=969) 0.6 MPL Anticardiolipin IgG Result Interpretation: NEG:<20 GPL; U/mlPOS:>/=20 GPL ;U/mlAnticardiolipinIgM Result Interpretation: NEG:<20 MPL; U/mlPOS:>/= 20 MPL;U/[id number] 19:19:00 Test Item Value Reference Range Comments HOMOCYSTEINE (BEAKER) (test rnfa=721) 19.1 umol/L 5.1-15.4 HEMOGLOBIN [id number] 16:55:00 Test Item Value Reference Range Comments HEMOGLOBIN A1C (BEAKER) (test deqc=862) 5.1 % 4.3-6.1 TSH/FREE T4 IF [id number] 16:00:00 Test Item Value Reference Range Comments THYROID STIMULATING HORMONE (BEAKER) (test 1.64 uIU/mL 0.35-4.94 uqey=250) VITAMIN B12 AND [id number] 16:00:00 Test Item Value Reference Range Comments VITAMIN B12 (BEAKER) (test ppkd=064) 241 pg/mL 213-816 FOLATE (BEAKER) (test uass=993) 3.7 ng/mL >=7.0 Effective 07/08/2014: Folate Reference Range ChangeNew: >=7.0 Previous: & gt;=5.4SEDIMENTATION [id number] 15:57:00 Test Item Value Reference Range Comments SEDIMENTATION RATE, ERYTHROCYTE (BEAKER) (test 8 mm/HR 0-20 dumv=948) LIPID [id number] 15:32:00 Test Item Value Reference Range Comments TRIGLYCERIDES (BEAKER) (test xhei=063) 98 mg/dL CHOLESTEROL (BEAKER) (test rbta=553) 200 mg/dL HDL CHOLESTEROL (BEAKER) (test uvjx=098) 51 mg/dL LDL CHOLESTEROL CALCULATED (BEAKER) (test 129 mg/dL fwof=312) Triglyceride Reference Range: Low Risk <150 Borderline 150- 199 High Risk 200-499 Very High Risk >=500Cholesterol Reference Range: Low Risk <200 Borderline 200-239 High Risk > 240HDL Cholesterol Reference Range: Low Risk >=60 High Risk <40LDL Cholesterol Reference Range: Optimal <100 Near Optimal 100-129 Borderline 130-159 High 160-189 Very High >=190C-REACTIVE [id number] 15:30:00 Test Item Value Reference Range Comments C-REACTIVE PROTEIN (BEAKER) (test fvwo=050) 2.96 mg/dL 0.00-0.50 CBC W/PLT COUNT & AUTO [id number] 15:05:00 Test Item Value Reference Range Comments WHITE BLOOD CELL COUNT (BEAKER) (test xnqx=765) 7.8 K/ L 4.0-10.0 RED BLOOD CELL COUNT (BEAKER) (test jfsn=421) 5.50 M/ L 4.00-5.00 HEMOGLOBIN (BEAKER) (test lzjx=836) 16.4 GM/DL 12.0-15.0 HEMATOCRIT (BEAKER) (test hbcq=671) 48.2 % 36.0-45.0 MEAN CORPUSCULAR VOLUME (BEAKER) (test jave=538) 87.7 fL 82.0-99.0 MEAN CORPUSCULAR HEMOGLOBIN (BEAKER) (test 29.8 pg 27.0-33.0 vpjd=404) MEAN CORPUSCULAR HEMOGLOBIN CONC (BEAKER) (test 34.0 GM/DL 32.0-36.0 wnfw=589) RED CELL DISTRIBUTION WIDTH (BEAKER) (test 15.3 % 10.3-14.2 rrtc=800) PLATELET COUNT (BEAKER) (test ciie=431) 217 K/CU MM 150-430 MEAN PLATELET VOLUME (BEAKER) (test shdb=813) 7.3 fL 6.5-10.5 NUCLEATED RED BLOOD CELLS (BEAKER) (test 0 /100 WBC 0-0 abvt=005) NEUTROPHILS RELATIVE PERCENT (BEAKER) (test 67 % dtdc=353) LYMPHOCYTES RELATIVE PERCENT (BEAKER) (test 22 % dnos=758) MONOCYTES RELATIVE PERCENT (BEAKER) (test 8 % gztl=916) EOSINOPHILS RELATIVE PERCENT (BEAKER) (test 1 % wogw=198) BASOPHILS RELATIVE PERCENT (BEAKER) (test 2 % dimb=193) NEUTROPHILS ABSOLUTE COUNT (BEAKER) (test 5.25 K/ L 1.80-8.00 sqau=826) LYMPHOCYTES ABSOLUTE COUNT (BEAKER) (test 1.68 K/ L 1.48-4.50 whlz=221) MONOCYTES ABSOLUTE COUNT (BEAKER) (test 0.65 K/ L 0.00-1.30 cgsb=983) EOSINOPHILS ABSOLUTE COUNT (BEAKER) (test 0.09 K/ L 0.00-0.50 dcbl=423) BASOPHILS ABSOLUTE COUNT (BEAKER) (test 0.14 K/ L 0.00-0.20 uxhk=187) [id number] 07:34:00 Test Item Value Reference Range Comments MAGNESIUM (BEAKER) (test 2.0 mg/dL 1.6-2.6 Specimen slightly hemolyzed bzkx=771) BASIC METABOLIC [id number] 07:33:00 Test Item Value Reference Range Comments SODIUM (BEAKER) (test 136 meq/L 136-145 xhik=218) POTASSIUM (BEAKER) (test 4.1 meq/L 3.5-5.1 gfit=112) CHLORIDE (BEAKER) (test 107 meq/L 98-107 suoe=425) CO2 (BEAKER) (test 20 meq/L 22-29 sats=807) BLOOD UREA NITROGEN 10 mg/dL 7-21 (BEAKER) (test lwpo=871) CREATININE (BEAKER) (test 0.72 mg/dL 0.57-1.25 cabk=189) GLUCOSE RANDOM (BEAKER) 84 mg/dL 70-105 (test osan=808) CALCIUM (BEAKER) (test 8.3 mg/dL 8.4-10.2 plpb=889) EGFR (BEAKER) (test 91 mL/min/1.73 sq m ESTIMATED GFR IS NOT htus=0758) ACCURATE CREATININE CLEARANCE IN PREDICTING GLOMERULAR FILTRATION RATE. ESTIMATED GFR IS NOT APPLICABLE FOR DIALYSIS PATIENTS. [id number] 07:27:00 Test Item Value Reference Range Comments MAGNESIUM (BEAKER) (test rlel=688) 1.7 mg/dL 1.6-2.6 SCREEN, [id number] 13:54:00 Test Item Value Reference Range Comments TEST URINE (BEAKER) (test bswm=741) Negative [id number] 02:55:00 Test Item Value Reference Range Comments MAGNESIUM (BEAKER) (test dsmy=931) 1.8 mg/dL 1.6-2.6 PHENYTOIN LEVEL, [id number] 00:30:00 Test Item Value Reference Range Comments PHENYTOIN (DILANTIN) (BEAKER) (test vqxc=223) 7.3 ug/mL 10.0-20.0 HEPATIC FUNCTION [id number] 00:26:00 Test Item Value Reference Range Comments TOTAL PROTEIN (BEAKER) (test cauo=959) 6.4 gm/dL 6.0-8.3 ALBUMIN (BEAKER) (test pvox=8374) 3.8 g/dL 3.5-5.0 BILIRUBIN TOTAL (BEAKER) (test mzth=937) 0.4 mg/dL 0.2-1.2 BILIRUBIN DIRECT (BEAKER) (test olys=453) 0.2 mg/dL 0.1-0.5 ALKALINE PHOSPHATASE (BEAKER) (test ijfl=710) 114 U/L 40-150 AST (SGOT) (BEAKER) (test mffh=523) 16 U/L 5-34 ALT (SGPT) (BEAKER) (test abfc=713) 20 U/L 6-55 BASIC METABOLIC [id number] 00:26:00 Test Item Value Reference Range Comments SODIUM (BEAKER) (test 138 meq/L 136-145 pitn=923) POTASSIUM (BEAKER) (test 4.0 meq/L 3.5-5.1 tpmz=561) CHLORIDE (BEAKER) (test 109 meq/L 98-107 envg=887) CO2 (BEAKER) (test 21 meq/L 22-29 ogrj=388) BLOOD UREA NITROGEN 7 mg/dL 7-21 (BEAKER) (test yhgt=280) CREATININE (BEAKER) (test 0.74 mg/dL 0.57-1.25 ofsu=503) GLUCOSE RANDOM (BEAKER) 103 mg/dL 70-105 (test hdva=488) CALCIUM (BEAKER) (test 9.0 mg/dL 8.4-10.2 magz=434) EGFR (BEAKER) (test 88 mL/min/1.73 sq m ESTIMATED GFR IS NOT opzu=7239) ACCURATE CREATININE CLEARANCE IN PREDICTING GLOMERULAR FILTRATION RATE. ESTIMATED GFR IS NOT APPLICABLE FOR DIALYSIS PATIENTS. [id number] 00:26:00 Test Item Value Reference Range Comments ALBUMIN (BEAKER) (test effg=4862) 3.8 g/dL 3.5-5.0 CBC W/PLT COUNT & AUTO [id number] 00:16:00 Test Item Value Reference Range Comments WHITE BLOOD CELL COUNT (BEAKER) (test hloa=381) 10.1 K/ L 4.0-10.0 RED BLOOD CELL COUNT (BEAKER) (test jlxh=396) 5.45 M/ L 4.00-5.00 HEMOGLOBIN (BEAKER) (test qnrf=454) 15.5 GM/DL 12.0-15.0 HEMATOCRIT (BEAKER) (test lwhn=839) 48.8 % 36.0-45.0 MEAN CORPUSCULAR VOLUME (BEAKER) (test ncxf=894) 89.6 fL 82.0-99.0 MEAN CORPUSCULAR HEMOGLOBIN (BEAKER) (test 28.4 pg 27.0-33.0 zfan=628) MEAN CORPUSCULAR HEMOGLOBIN CONC (BEAKER) (test 31.7 GM/DL 32.0-36.0 zklx=791) RED CELL DISTRIBUTION WIDTH (BEAKER) (test 15.5 % 10.3-14.2 gnif=752) PLATELET COUNT (BEAKER) (test aqdv=664) 260 K/CU MM 150-430 MEAN PLATELET VOLUME (BEAKER) (test egjz=945) 7.7 fL 6.5-10.5 NUCLEATED RED BLOOD CELLS (BEAKER) (test 0 /100 WBC 0-0 qhsg=972) NEUTROPHILS RELATIVE PERCENT (BEAKER) (test 83 % aaia=918) LYMPHOCYTES RELATIVE PERCENT (BEAKER) (test 12 % auuj=698) MONOCYTES RELATIVE PERCENT (BEAKER) (test 4 % gvkv=006) EOSINOPHILS RELATIVE PERCENT (BEAKER) (test 0 % hyqm=286) BASOPHILS RELATIVE PERCENT (BEAKER) (test 0 % pxvh=273) NEUTROPHILS ABSOLUTE COUNT (BEAKER) (test 8.39 K/ L 1.80-8.00 wpmz=283) LYMPHOCYTES ABSOLUTE COUNT (BEAKER) (test 1.24 K/ L 1.48-4.50 iuzf=614) MONOCYTES ABSOLUTE COUNT (BEAKER) (test 0.40 K/ L 0.00-1.30 fxgp=325) EOSINOPHILS ABSOLUTE COUNT (BEAKER) (test 0.03 K/ L 0.00-0.50 xinx=677) BASOPHILS ABSOLUTE COUNT (BEAKER) (test 0.03 K/ L 0.00-0.20 htum=442) 0.00
[2019-08-19] MEDS ORDERED: NA CHLORIDE 0.9% 1,000 ML ONE (18:23)
[2019-08-19] MEDS ORDERED: ONDANSETRON 4 MG/2 ML VIAL ONE (18:23)
[2019-08-19] MEDS ORDERED: MORPHINE 4 MG/ML SYR ONE ×3 (18:23→21:25)
[2019-08-19] MEDS ORDERED: FOSPHENYTOIN PE 1,000 MG in NA CHLORIDE 0.9% 100 ML IV ONE (19:00)
--- NOTE | 2019-08-19 19:08 | RAD REPORT ---
EXAM DESCRIPTION: CT - Head C Spine Mpr Wo Con - 08/19/2019 6:56 pm CLINICAL HISTORY: Head and neck injury status post fall. Head and neck pain . Seizure COMPARISON: 2018 TECHNIQUE: Computed axial tomography of the head and cervical spine was obtained. Sagittal and coronal reconstruction was performed. All CT scans are performed using dose optimization technique as appropriate and may include automated exposure control or mA/KV adjustment according to patient size. FINDINGS: An intracranial bleed is not seen. The ventricles are normal in caliber. An extra-axial fl uid collection is not noted.Fluid within the visualized sinuses and mastoids is not seen A cervical fracture is not visualized. No dislocation is noted. Mild to moderate spondylosis distal c ervical spine IMPRESSION: No acute intracranial abnormality is seen. A cervical fracture is not visualized. If the patient continues to have symptoms to suggest intracra nial /spinal cord pathology then MRI would be recommended
--- NOTE | 2019-08-19 19:08 | RAD REPORT ---
EXAM DESCRIPTION: Saman Single View08/19/2019 6:46 pm CLINICAL HISTORY: cough COMPARISON: September 2018 FINDINGS: The lungs appear clear of acute infiltrate. The heart is normal size IMPRESSION: No acute abnormalities displayed
--- NOTE | 2019-08-19 19:09 | RAD REPORT ---
EXAM DESCRIPTION: RAD - Shoulder Right 2 View - 08/19/2019 6:47 pm CLINICAL HISTORY: Right shoulder pain FINDINGS: No fracture or dislocation is seen.
[2019-08-19 19:16] LABS: Absolute Lymphocytes (CBC) 2.6 K/uL (0.7-4.9); Basophils % 0.7 % (0-1.3); Hematocrit 46.4 % (36.0-45.0); Lymphocytes % 21.2 % (15.3-44.8); MPV 8.5 fL (7.6-11.3); RBC Red Blood Cell Count 5.26 M/uL (3.86-4.86)
[2019-08-19 19:17] LABS: Protime INR 0.99
[2019-08-19 19:35] LABS: ALT/SGPT 28 U/L (12-78); AST/SGOT 21 U/L (15-37); Albumin 3.4 g/dL (3.4-5.0); Alkaline Phosphatase 119 U/L (45-117); BUN Blood Urea Nitrogen 7 mg/dL (7-18); Bicarbonate 26 mmol/L (21-32); Bilirubin Direct 0.2 mg/dL (0-0.2); Bilirubin Total 1.1 mg/dL (0.2-1.0); Glucose Level 85 mg/dL (74-106); Magnesium 1.9 mg/dL (1.8-2.4); NT PRO-BNP 1371 pg/mL (<125); Potassium 3.7 mmol/L (3.5-5.1); Protein, Total 6.8 g/dL (6.4-8.2); Sodium Level 139 mmol/L (136-145); Troponin (Emerg Dept Use Only) < 0.02 ng/mL (0.0-0.045)
[2019-08-19] MEDS ORDERED: cloNIDine HCL 0.1 MG TAB ONE (19:49)
[2019-08-19] MEDS ORDERED: AMLODIPINE 5 MG TAB ONE (19:50)
[2019-08-19] MEDS ORDERED: lisinopriL 10 MG TAB ONE (19:50)
[2019-08-19] MEDS ORDERED: FAMOTIDINE 20 MG/2 ML VIAL IV ONE (20:47)
--- NOTE | 2019-08-19 20:49 | RAD REPORT ---
EXAM DESCRIPTION: CT - Abdomen Pelvis W Contrast - 08/19/2019 8:33 pm CLINICAL HISTORY: Abdominal pain COMPARISON: November 2018 TECHNIQUE: Computed axial tomography of the abdomen pelvis was obtained. 100 cc Isovue-300 was admin istered intravenously. Oral contrast was not requested which limits evaluation of bowel. All CT scans are performed using dose optimization technique as appropriate and may include automated exposure control or mA/KV adjustment according to patient size. FINDINGS: Small bilateral renal calculi. No hydronephrosis. Small renal cysts. The liver, spleen, pancreas, and adrenals appear unremarkable. There is no evidence of diverticulitis. Normal appendix Borderline dilatation of several loops of jejunum with a mildly thickened wall IMPRESSION: Small nonobstructing renal calculi Borderline dilatation of several loops of jejunum with a mildly thickened wall may indicate an enteri tis
--- NOTE | 2019-08-19 21:01 | ER ---
Nurse's Notes [facility] Name: Nelia Corley Age: 39 yrs Sex: Female : 1980 Arrival Date: 08/19/2019 Time: 17:59 Bed 19 Private MD: Diagnosis: Epilepsy and recurrent seizures;Essential (primary) hypertension;Abdominal tenderness-enteritis Presentation: 08/19 18:00 Presenting complaint: EMS states: pt called for having a seizure, states it began tw2 around 3pm this afternoon and didn't regain consciousness per her and her daughter until 5pm, vs stable when we arrived, she is c/o b/l shoulder pain and a headache between the eyes. Transition of care: patient was not received from another setting of care. Onset of symptoms was August 19, 2019. Risk Assessment: Do you want to hurt yourself or someone else? Patient reports no desire to harm self or others. Initial Sepsis Screen: Does the patient meet any 2 criteria? No. Patient's initial sepsis screen is negative. Does the patient have a suspected source of infection? No. Patient's initial sepsis screen is negative. Care prior to arrival: IV initiated. 20 GA, in the left antecubital area. 18:00 Method Of Arrival: EMS: [facility] tw2 18:00 Acuity: JENNIFER 3 tw2 Triage Assessment: 18:03 General: Appears uncomfortable, obese, unkempt, Behavior is anxious, crying. Pain: tw2 Complains of pain in b/l shoulder and headache. Neuro: Level of Consciousness is awake, alert, obeys commands, Oriented to person, place, time, situation. 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 N/A - tw2 Historical: - Allergies: 18:05 Ceclor; tw2 18:05 Sulfa (Sulfonamide Antibiotics); tw2 18:05 Ultram; tw2 - Home Meds: 18:05 Tylenol PM Extra Strength 25-500 mg Oral tab 2 tabs once daily [Active]; topiramate 25 tw2 mg Oral tab 1 tabs 2 times per day [Active]; Phenytoin 100 MG EVERY 8 HOURS Oral [Active]; lisinopril 20 mg Oral tab 1 tab once daily [Active]; folic acid 1 mg Oral tab 1 tab once daily [Active]; amlodipine 5 mg tab 1 tab once daily [Active]; atorvastatin 80 mg Oral tab 1 tab once daily [Active]; - PMHx: 18:05 ADD/ADHD; Anxiety; CVA; Hyperlipidemia; Hypertension; NSTEMI; right rotator cuff torn; tw2 Seizures; - PSHx: 18:05 ; Cholecystectomy; tw2 - Immunization history:: Adult Immunizations. - Social history:: Smoking status: Patient uses street drugs, marijuana. - Ebola Screening: : Patient denies travel to an Ebola-affected area in the 21 days before illness onset. - Family history:: not pertinent. Screenin:06 Abuse screen: Denies threats or abuse. Nutritional screening: No deficits noted. tw2 Tuberculosis screening: No symptoms or risk factors identified. Fall Risk None identified. Assessment: 18:03 Reassessment: provider at bedside at this time. tw2 18:03 General: Appears uncomfortable, obese, unkempt, Behavior is anxious, crying. Neuro: tw2 Reports headache. Cardiovascular: Heart tones S1 S2 Patient's skin is warm and dry. Respiratory: Airway is patent Respiratory effort is even, unlabored, Respiratory pattern is regular, symmetrical, Breath sounds are clear bilaterally. GI: Abdomen is round obese, Bowel sounds present X 4 quads. : No signs and/or symptoms were reported regarding the genitourinary system. EENT: No signs and/or symptoms were reported regarding the EENT system. Derm: No signs and/or symptoms reported regarding the dermatologic system. Musculoskeletal: Reports pain in posterior aspect of right shoulder and left shoulder. 18:49 General: Behavior is anxious, crying, pt states "i am such a loser, i didn't want my tw2 daughter to see me like this, i was doing so good taking my cbd oil and my seizure medicine but i ran out a week ago and here i am like this". 19:00 Reassessment: Patient and/or family updated on plan of care and expected duration. Pain tw2 level reassessed. Patient is alert, oriented x 3, equal unlabored respirations, skin warm/dry/pink. provider notified of pts report of "migraine pain and he usually gives me something that works really good for it" Patient states symptoms have not improved. 19:30 Reassessment: Patient screaming for help, patient states that she is having severe vc abdominal pain, bp 209/111, R 30. notified. 20:19 Reassessment: Patient to CT via stretcher. vc 21:20 Reassessment: Patient request pain medication before being discharged, notified, vc verbal orders as follows, 4mg morphine IVP times one dose now. Patient must have someone come and pick her up when discharged, patient notified and contacted ride. Vital Signs: 18:02 BP 218 / 149; Pulse 76; Resp 19; Temp 99.2(O); Pulse Ox 100% on R/A; Weight 90.72 kg tw2 (R); Height 5 ft. 0 in. (152.40 cm); Pain 10/10; 19:08 BP 233 / 131; Pulse 67; Resp 18; Pulse Ox 99% on R/A; tw2 20:00 BP 140 / 125; Pulse 69; Resp 16; Pulse Ox 97% on R/A; Pain 10/10; vc 21:00 BP 186 / 88; Pulse 65; Resp 17; Pulse Ox 99% on R/A; Pain 0/10; vc 18:02 Body Mass Index 39.06 (90.72 kg, 152.40 cm) tw2 19:08 provider notified. tw2 [place] Coma Score: 18:03 Eye Response: spontaneous(4). Verbal Response: oriented(5). Motor Response: obeys tw2 commands(6). Total: 15. ED Course: 17:59 Patient arrived in ED. tw2 18:00 Bed in low position. Side rails up X2. Seizure precautions initiated. desk monitor tw2 on. Pulse ox on. NIBP on. 18:02 Triage completed. tw2 18:02 Cj Mckeon MD is Attending Physician. [facility] 18:06 Edda Desai, LELO is Primary Nurse. tw2 18:06 Arm band placed on. tw2 18:37 EKG done, by ED staff, reviewed by Cj Mckeon MD. 5 18:38 Warm blanket given. 5 18:49 Missed attempt(s): 22 gauge in right antecubital area. Bleeding controlled, band aid tw2 applied, catheter tip intact. Inserted saline lock: 24 gauge in right hand, using aseptic technique. Blood collected. 18:49 Maintain EMS IV. Dressing intact. Site clean \\T\\ dry. Gauge \\T\\ site: 20 g LEFT ac, no tw 2 blood return but flushes well with no infiltration noted.. 18:52 XRAY Chest (1 view) In Process Unspecified. EDMS 18:52 Shoulder Right (2 View) XRAY In Process Unspecified. EDMS 18:57 CT Head C Spine In Process Unspecified. EDMS 19:10 Report given to LELO Cyr and LELO Lopez. tw2 20:19 Primary Nurse role handed off by Edda Desai RN vc 20:19 Klarissa Trevino RN is Primary Nurse. vc 20:36 CT Abd/Pelvis - IV Contrast Only In Process Unspecified. EDMS 21:00 Max Vidal MD is Referral Physician. isaak 21:40 No provider procedures requiring assistance completed. IV discontinued, intact, vc bleeding controlled, No redness/swelling at site. Pressure dressing applied. Administered Medications: 18:44 Drug: NS 0.9% 1000 ml Route: IV; Rate: 1 bolus; Site: left antecubital; tw2 18:44 Drug: Zofran 4 mg Route: IVP; Site: left antecubital; tw2 19:01 Follow up: Response: No adverse reaction; Nausea is decreased tw2 18:46 Drug: morphine 4 mg Route: IVP; Site: left antecubital; tw2 19:05 Follow up: Response: No adverse reaction; Pain is unchanged, physician notified; RASS: tw2 Alert and Calm (0) 19:05 Drug: Fosphenytoin 1 grams Route: IVPB; Site: left antecubital; tw2 20:00 Drug: cloNIDine 0.1 mg Route: PO; vc 21:00 Follow up: Response: Blood pressure is lowered vc 20:00 Drug: Norvasc 10 mg Route: PO; vc 21:00 Follow up: Response: Blood pressure is lowered vc 20:00 Drug: Lisinopril 10 mg Route: PO; vc 21:00 Follow up: Response: Blood pressure is lowered vc 20:55 Drug: morphine 4 mg Route: IVP; Site: right hand; vc 20:55 Follow up: Response: RASS: Agitated (+2) vc 08/20 02:15 Follow up: Response: No adverse reaction; Pain is unchanged, physician notified vc 08/19 20:55 Drug: Pepcid 20 mg Route: IVP; Site: left forearm; vc 22:00 Follow up: Response: No adverse reaction vc 21:38 Drug: morphine 4 mg Route: IVP; Site: left forearm; vc 21:38 Follow up: Response: No adverse reaction; Medication administered at discharge. vc 21:38 Follow up: Response: RASS: Agitated (+2) vc Outcome: 21:00 Discharge ordered by . isaak 21:40 Discharged to home via wheelchair, with friend. vc 21:40 Condition: good 21:40 Discharge instructions given to patient, Instructed on discharge instructions, follow up and referral plans. medication usage, Demonstrated understanding of instructions, medications, Prescriptions given X 4. 21:41 Patient left the ED. vc Signatures: Dispatcher [employer] EDMS Cj Mckeon MD MD cha Wise, Tara, RN RN 2 Alix Espinosa [facility] Klarissa Trevino RN RN vc Corrections: (The following items were deleted from the chart) 18:18 18:02 Pulse 76bpm; Resp 19bpm; Pulse Ox 100% RA; Temp 99.2F Oral; 90.72 kg Reported; tw2 Height 5 ft. 0 in.; BMI: 39.0; Pain 10/10; tw2 21:49 21:00 BP 186 / 88; vc vc
--- NOTE | 2019-08-19 21:02 | EDPHYS ---
Physician Documentation [facility] Name: Nelia Corley Age: 39 yrs Sex: Female : 1980 Arrival Date: 08/19/2019 Time: 17:59 Bed 19 Private MD: ED Physician Cj Mckeon HPI: 08/19 18:11 This 39 yrs old Female presents to ER via EMS with complaints of Probable isaak Seizure. 18:11 The patient presents after having a single isolated seizure, that lasted an unknown isaak period of time. Character of seizure(s): Loss of consciousness: the patient experienced loss of consciousness. Seizure onset: just prior to arrival. Context: the seizure(s) was witnessed, by family. Seizure Hx: Last seizure: The patient's last seizure was approximately 1 year(s) ago. [employer] SPECIAL AGENT: 19:09 LMP N/A - tw2 Historical: - Allergies: 18:05 Ceclor; tw2 18:05 Sulfa (Sulfonamide Antibiotics); tw2 18:05 Ultram; tw2 - Home Meds: 18:05 Tylenol PM Extra Strength 25-500 mg Oral tab 2 tabs once daily [Active]; topiramate 25 tw2 mg Oral tab 1 tabs 2 times per day [Active]; Phenytoin 100 MG EVERY 8 HOURS Oral [Active]; lisinopril 20 mg Oral tab 1 tab once daily [Active]; folic acid 1 mg Oral tab 1 tab once daily [Active]; amlodipine 5 mg tab 1 tab once daily [Active]; atorvastatin 80 mg Oral tab 1 tab once daily [Active]; - PMHx: 18:05 ADD/ADHD; Anxiety; CVA; Hyperlipidemia; Hypertension; NSTEMI; right rotator cuff torn; tw2 Seizures; - PSHx: 18:05 ; Cholecystectomy; tw2 - Immunization history:: Adult Immunizations. - Social history:: Smoking status: Patient uses street drugs, marijuana. - Ebola Screening: : Patient denies travel to an Ebola-affected area in the 21 days before illness onset. - Family history:: not pertinent. ROS: 18:11 Constitutional: Negative for fever, chills, and weight loss, Eyes: Negative for injury, isaak pain, redness, and discharge, ENT: Negative for injury, pain, and discharge, Neck: Negative for injury, pain, and swelling, Cardiovascular: Negative for chest pain, palpitations, and edema, Respiratory: Negative for shortness of breath, cough, wheezing, and pleuritic chest pain, Abdomen/GI: Negative for abdominal pain, nausea, vomiting, diarrhea, and constipation, Back: Negative for injury and pain, : Negative for injury, bleeding, discharge, and swelling, Skin: Negative for injury, rash, and discoloration, Psych: Negative for depression, anxiety, suicide ideation, homicidal ideation, and hallucinations, Allergy/Immunology: Negative for hives, rash, and allergies, Endocrine: Negative for neck swelling, polydipsia, polyuria, polyphagia, and marked weight changes, Hematologic/Lymphatic: Negative for swollen nodes, abnormal bleeding, and unusual bruising. 18:11 MS/extremity: Positive for decreased range of motion, tenderness, of the anterior aspect of right shoulder and posterior aspect of right shoulder. Exam: 18:11 Constitutional: This is a well developed, well nourished patient who is awake, alert, isaak and in no acute distress. Head/Face: Normocephalic, atraumatic. Eyes: Pupils equal round and reactive to light, extra-ocular motions intact. Lids and lashes normal. Conjunctiva and sclera are non-icteric and not injected. Cornea within normal limits. Periorbital areas with no swelling, redness, or edema. ENT: Nares patent. No nasal discharge, no septal abnormalities noted. Tympanic membranes are normal and external auditory canals are clear. Oropharynx with no redness, swelling, or masses, exudates, or evidence of obstruction, uvula midline. Mucous membranes moist. Neck: Trachea midline, no thyromegaly or masses palpated, and no cervical lymphadenopathy. Supple, full range of motion without nuchal rigidity, or vertebral point tenderness. No Meningismus. Chest/axilla: Normal chest wall appearance and motion. Nontender with no deformity. No lesions are appreciated. Cardiovascular: Regular rate and rhythm with a normal S1 and S2. No gallops, murmurs, or rubs. Normal PMI, no JVD. No pulse deficits. Respiratory: Lungs have equal breath sounds bilaterally, clear to auscultation and percussion. No rales, rhonchi or wheezes noted. No increased work of breathing, no retractions or nasal flaring. Abdomen/GI: Soft, non-tender, with normal bowel sounds. No distension or tympany. No guarding or rebound. No evidence of tenderness throughout. Back: No spinal tenderness. No costovertebral tenderness. Full range of motion. Skin: Warm, dry with normal turgor. Normal color with no rashes, no lesions, and no evidence of cellulitis. Psych: Awake, alert, with orientation to person, place and time. Behavior, mood, and affect are within normal limits. 18:11 Musculoskeletal/extremity: Extremities: noted in the anterior aspect of right shoulder and posterior aspect of right shoulder: decreased ROM, pain, ROM: limited active range of motion, limited passive range of motion, Circulation is intact in all extremities. Sensation intact. Compartment Syndrome exam of affected extremity: is normal. DVT Exam: negative Homans' sign noted on exam, no appreciated bluish discoloration, no erythema, no increased warmth, pain, swelling, tenderness. Vital Signs: 18:02 BP 218 / 149; Pulse 76; Resp 19; Temp 99.2(O); Pulse Ox 100% on R/A; Weight 90.72 kg tw2 (R); Height 5 ft. 0 in. (152.40 cm); Pain 10/10; 19:08 BP 233 / 131; Pulse 67; Resp 18; Pulse Ox 99% on R/A; tw2 20:00 BP 140 / 125; Pulse 69; Resp 16; Pulse Ox 97% on R/A; Pain 10/10; vc 21:00 BP 186 / 88; Pulse 65; Resp 17; Pulse Ox 99% on R/A; Pain 0/10; vc 18:02 Body Mass Index 39.06 (90.72 kg, 152.40 cm) tw2 19:08 provider notified. tw2 [place] Coma Score: 18:03 Eye Response: spontaneous(4). Verbal Response: oriented(5). Motor Response: obeys tw2 commands(6). Total: 15. MDM: 18:02 Patient medically screened. [facility] 18:16 Data reviewed: vital signs, nurses notes, lab test result(s), EKG, radiologic studies, [facility] CT scan, plain films. 08/19 18:10 Order name: Basic Metabolic Panel; Complete Time: 19:57 [facility] 08/19 18:10 Order name: CBC with Diff; Complete Time: 19:57 08/19 18:10 Order name: LFT's; Complete Time: 19:57 08/19 18:10 Order name: Magnesium; Complete Time: 19:57 08/19 18:10 Order name: NT PRO-BNP; Complete Time: 19:57 08/19 18:10 Order name: PT-INR; Complete Time: 19:57 08/19 18:10 Order name: Troponin (emerg Dept Use Only); Complete Time: 19:57 08/19 18:10 Order name: XRAY Chest (1 view); Complete Time: 19:22 08/19 18:10 Order name: Shoulder Right (2 View) XRAY; Complete Time: 19:22 08/19 18:10 Order name: CT Head C Spine; Complete Time: 19:22 08/19 19:57 Order name: Lipase; Complete Time: 20:54 08/19 19:59 Order name: CT Abd/Pelvis - IV Contrast Only; Complete Time: 20:55 08/19 18:10 Order name: EKG; Complete Time: 18:12 08/19 18:10 Order name: Cardiac monitoring; Complete Time: 18:16 08/19 18:10 Order name: EKG - Nurse/Tech; Complete Time: 18:54 08/19 18:10 Order name: IV Saline Lock; Complete Time: 18:16 08/19 18:10 Order name: Labs collected and sent; Complete Time: 18:37 08/19 18:10 Order name: O2 Per Protocol; Complete Time: 18:17 08/19 18:10 Order name: O2 Sat Monitoring; Complete Time: 18:17 08/19 18:10 Order name: Seizure Precautions; Complete Time: 18:16 isaak 08/19 20:55 Order name: Vital Signs isaak Administered Medications: 18:44 Drug: NS 0.9% 1000 ml Route: IV; Rate: 1 bolus; Site: left antecubital; tw2 18:44 Drug: Zofran 4 mg Route: IVP; Site: left antecubital; tw2 19:01 Follow up: Response: No adverse reaction; Nausea is decreased tw2 18:46 Drug: morphine 4 mg Route: IVP; Site: left antecubital; tw2 19:05 Follow up: Response: No adverse reaction; Pain is unchanged, physician notified; RASS: tw2 Alert and Calm (0) 19:05 Drug: Fosphenytoin 1 grams Route: IVPB; Site: left antecubital; tw2 20:00 Drug: cloNIDine 0.1 mg Route: PO; vc 21:00 Follow up: Response: Blood pressure is lowered vc 20:00 Drug: Norvasc 10 mg Route: PO; vc 21:00 Follow up: Response: Blood pressure is lowered vc 20:00 Drug: Lisinopril 10 mg Route: PO; vc 21:00 Follow up: Response: Blood pressure is lowered vc 20:55 Drug: morphine 4 mg Route: IVP; Site: right hand; vc 20:55 Follow up: Response: RASS: Agitated (+2) vc 08/20 02:15 Follow up: Response: No adverse reaction; Pain is unchanged, physician notified vc 08/19 20:55 Drug: Pepcid 20 mg Route: IVP; Site: left forearm; vc 22:00 Follow up: Response: No adverse reaction vc 21:38 Drug: morphine 4 mg Route: IVP; Site: left forearm; vc 21:38 Follow up: Response: No adverse reaction; Medication administered at discharge. vc 21:38 Follow up: Response: RASS: Agitated (+2) vc Disposition: 08/19/19 21:00 Discharged to Home. Impression: Epilepsy and recurrent seizures, Essential (primary) hypertension, Abdominal tenderness - enteritis. - Condition is Fair. - Discharge Instructions: Abdominal Pain, Adult, Hypertension, Seizure, Adult, Abdominal Pain, Adult, [id number], Hypertension, [id number], Seizure, Adult, [id number], How to Take Your Blood Pressure, [id number], Managing Your Hypertension. - Prescriptions for Norvasc 10 mg Oral Tablet - take 1 tablet by ORAL route once daily; 30 tablet. Dilantin Kapseal 100 mg Oral Capsule - take 1 capsule by ORAL route every 8 hours; 30 capsule. Lisinopril 20 mg Oral Tablet - take 1 tablet by ORAL route once daily; 20 tablet. Bentyl 20 mg Oral Tablet - take 1 tablet by ORAL route every 6 hours As needed; 20 tablet. Pepcid 20 mg Oral Tablet - take 1 tablet by ORAL route every 12 hours for 10 days; 20 tablet. Zofran 4 mg Oral Tablet - take 1 tablet by ORAL route every 12 hours As needed; 20 tablet. - Medication Reconciliation Form, Thank You Letter, Antibiotic Education, Prescription Opioid Use form. - Follow up: Private Physician; When: 2 - 3 days; Reason: Recheck today's complaints, Continuance of care, Re-evaluation by your physician. Follow up: Max Vidal; When: 2 - 3 days; Reason: Recheck today's complaints, Re-evaluation by your physician. - Problem is new. - Symptoms have improved. Signatures: Dispatcher [employer] EDMS Cj Mckeon MD MD cha Wise, Tara RN RN tw2 Klarissa Trevino RN RN vc Corrections: (The following items were deleted from the chart) 21:41 21:00 08/19/2019 21:00 Discharged to Home. Impression: Epilepsy and recurrent seizures; vc Essential (primary) hypertension; Abdominal tenderness - enteritis. Condition is Fair. Discharge Instructions: Hypertension, Seizure, Adult, Hypertension, [id number], Seizure, Adult, [id number], How to Take Your Blood Pressure, [id number], Managing Your Hypertension, Abdominal Pain, Adult, Abdominal Pain, Adult, [id number]. Prescriptions for Norvasc 10 mg Oral Tablet - take 1 tablet by ORAL route once daily; 30 tablet, Dilantin Kapseal 100 mg Oral Capsule - take 1 capsule by ORAL route every 8 hours; 30 capsule, Lisinopril 20 mg Oral Tablet - take 1 tablet by ORAL route once daily; 20 tablet, Bentyl 20 mg Oral Tablet - take 1 tablet by ORAL route every 6 hours As needed; 20 tablet, Pepcid 20 mg Oral Tablet - take 1 tablet by ORAL route every 12 hours for 10 days; 20 tablet, Zofran 4 mg Oral Tablet - take 1 tablet by ORAL route every 12 hours As needed; 20 tablet. and Forms are Medication Reconciliation Form, Thank You Letter, Antibiotic Education, Prescription Opioid Use. Follow up: Private Physician; When: 2 - 3 days; Reason: Recheck today's complaints, Continuance of care, Re-evaluation by your physician. Follow up: Max Vidal; When: 2 - 3 days; Reason: Recheck today's complaints, Re-evaluation by your physician. Problem is new. Symptoms have improved. isaak
[2019-08-19 23:25] VITALS: TEMP 99.2
[2019-08-19 23:26] VITALS: O2SAT 99
[2019-08-19 23:28] VITALS: BP 186/88
--- NOTE | 2019-08-20 14:07 | EKG ---
Test Date: 2019-08-19 Test Time: 18:24:30 Health Insurance Adjuster: LIZETH MEASUREMENT RESULTS: Intervals: Rate: 75 [place]: 150 QRSD: 80 QT: 426 QTc: 475 [place]: P: 59 [place]: 150 QRS: 67 T: 78 INTERPRETIVE STATEMENTS: Normal sinus rhythm Normal ECG Compared to ECG 10/14/2018 16:17:13 No significant changes Electronically Signed On 08-20-19 14:06:11 [employer]AVA SECURITY ARCHITECT by Diaz Almanzar
== END 2019-08-19 21:41 | disposition home or self-care (01) ==
LOC: ER 17:58
DX: I10 Essential (primary) hypertension (principal); K52.9 Noninfective gastroenteritis and colitis, unspecified; E78.5 Hyperlipidemia, unspecified; F41.9 Anxiety disorder, unspecified; Z88.1 Allergy status to other antibiotic agents; Z88.2 Allergy status to sulfonamides; Z88.8 Allergy status to other drugs, medicaments and biological substances
CPT/HCPCS: 93005; 85025; 80048; 36415; 83735; 85610; 80076; 84484; 83690; 83880; 70450; 72125; 74177; 71045; 73030; 99285; Q9967; Q2009; J7030; J2405

== ENCOUNTER 2019-10-01 11:34 | Emergency (ER) | payer OTHER ==
--- OUTSIDE RECORDS SUMMARY | 2019-10-01 11:37 | XMS REPORT ---
:1980 [facility] Address [address] [place] [id number] Care Team Providers Name Role Phone MILAGRO [...] Range Comments ANTICARDIOLIPIN IGG ANTIBODY (BEAKER) (test dhzo=492) < GPL ANTICARDIOLIPIN IGM ANTIBODY (BEAKER) (test yuwg=078) 0.6 MPL Anticardiolipin IgG Result Interpretation: NEG:<20 GPL; U/mlPOS:>/=20 GPL ;U/mlAnticardiolipinIgM Result Interpretation: NEG:<20 MPL; U/mlPOS:>/= 20 MPL;U/[id number] 19:19:00 Test Item Value Reference Range Comments HOMOCYSTEINE (BEAKER) (test tmge=246) 19.1 umol/L 5.1-15.4 HEMOGLOBIN [id number] 16:55:00 Test Item Value Reference Range Comments HEMOGLOBIN A1C (BEAKER) (test vkpq=868) 5.1 % 4.3-6.1 TSH/FREE T4 IF [id number] 16:00:00 Test Item Value Reference Range Comments THYROID STIMULATING HORMONE (BEAKER) (test 1.64 uIU/mL 0.35-4.94 zvhr=067) VITAMIN B12 AND [id number] 16:00:00 Test Item Value Reference Range Comments VITAMIN B12 (BEAKER) (test wjzl=725) 241 pg/mL 213-816 FOLATE (BEAKER) (test ioim=683) 3.7 ng/mL >=7.0 Effective 07/08/2014: Folate Reference Range ChangeNew: >=7.0 Previous: & gt;=5.4SEDIMENTATION [id number] 15:57:00 Test Item Value Reference Range Comments SEDIMENTATION RATE, ERYTHROCYTE (BEAKER) (test 8 mm/HR 0-20 qkbk=740) LIPID [id number] 15:32:00 Test Item Value Reference Range Comments TRIGLYCERIDES (BEAKER) (test azlm=204) 98 mg/dL CHOLESTEROL (BEAKER) (test wuvm=660) 200 mg/dL HDL CHOLESTEROL (BEAKER) (test snyd=445) 51 mg/dL LDL CHOLESTEROL CALCULATED (BEAKER) (test 129 mg/dL hljd=147) Triglyceride Reference Range: Low Risk <150 Borderline 150- 199 High Risk 200-499 Very High Risk >=500Cholesterol Reference Range: Low Risk <200 Borderline 200-239 High Risk > 240HDL Cholesterol Reference Range: Low Risk >=60 High Risk <40LDL Cholesterol Reference Range: Optimal <100 Near Optimal 100-129 Borderline 130-159 High 160-189 Very High >=190C-REACTIVE [id number] 15:30:00 Test Item Value Reference Range Comments C-REACTIVE PROTEIN (BEAKER) (test rtdz=135) 2.96 mg/dL 0.00-0.50 CBC W/PLT COUNT & AUTO [id number] 15:05:00 Test Item Value Reference Range Comments WHITE BLOOD CELL COUNT (BEAKER) (test khzw=466) 7.8 K/ L 4.0-10.0 RED BLOOD CELL COUNT (BEAKER) (test rgxk=131) 5.50 M/ L 4.00-5.00 HEMOGLOBIN (BEAKER) (test torc=220) 16.4 GM/DL 12.0-15.0 HEMATOCRIT (BEAKER) (test bjfk=087) 48.2 % 36.0-45.0 MEAN CORPUSCULAR VOLUME (BEAKER) (test acog=037) 87.7 fL 82.0-99.0 MEAN CORPUSCULAR HEMOGLOBIN (BEAKER) (test 29.8 pg 27.0-33.0 bzfq=469) MEAN CORPUSCULAR HEMOGLOBIN CONC (BEAKER) (test 34.0 GM/DL 32.0-36.0 lfjl=546) RED CELL DISTRIBUTION WIDTH (BEAKER) (test 15.3 % 10.3-14.2 ilkm=934) PLATELET COUNT (BEAKER) (test yada=170) 217 K/CU MM 150-430 MEAN PLATELET VOLUME (BEAKER) (test mzer=144) 7.3 fL 6.5-10.5 NUCLEATED RED BLOOD CELLS (BEAKER) (test 0 /100 WBC 0-0 tpvy=199) NEUTROPHILS RELATIVE PERCENT (BEAKER) (test 67 % mdfp=139) LYMPHOCYTES RELATIVE PERCENT (BEAKER) (test 22 % zdzg=894) MONOCYTES RELATIVE PERCENT (BEAKER) (test 8 % igtb=344) EOSINOPHILS RELATIVE PERCENT (BEAKER) (test 1 % thst=766) BASOPHILS RELATIVE PERCENT (BEAKER) (test 2 % vlyq=248) NEUTROPHILS ABSOLUTE COUNT (BEAKER) (test 5.25 K/ L 1.80-8.00 ywzr=664) LYMPHOCYTES ABSOLUTE COUNT (BEAKER) (test 1.68 K/ L 1.48-4.50 idkp=111) MONOCYTES ABSOLUTE COUNT (BEAKER) (test 0.65 K/ L 0.00-1.30 ybfy=981) EOSINOPHILS ABSOLUTE COUNT (BEAKER) (test 0.09 K/ L 0.00-0.50 jcxn=080) BASOPHILS ABSOLUTE COUNT (BEAKER) (test 0.14 K/ L 0.00-0.20 ycgm=443) [id number] 07:34:00 Test Item Value Reference Range Comments MAGNESIUM (BEAKER) (test 2.0 mg/dL 1.6-2.6 Specimen slightly hemolyzed tasu=485) BASIC METABOLIC [id number] 07:33:00 Test Item Value Reference Range Comments SODIUM (BEAKER) (test 136 meq/L 136-145 qklm=868) POTASSIUM (BEAKER) (test 4.1 meq/L 3.5-5.1 uflt=931) CHLORIDE (BEAKER) (test 107 meq/L 98-107 puwj=213) CO2 (BEAKER) (test 20 meq/L 22-29 zsnw=456) BLOOD UREA NITROGEN 10 mg/dL 7-21 (BEAKER) (test ueff=714) CREATININE (BEAKER) (test 0.72 mg/dL 0.57-1.25 sqwe=446) GLUCOSE RANDOM (BEAKER) 84 mg/dL 70-105 (test ilrn=120) CALCIUM (BEAKER) (test 8.3 mg/dL 8.4-10.2 ttre=854) EGFR (BEAKER) (test 91 mL/min/1.73 sq m ESTIMATED GFR IS NOT gpbn=7672) ACCURATE CREATININE CLEARANCE IN PREDICTING GLOMERULAR FILTRATION RATE. ESTIMATED GFR IS NOT APPLICABLE FOR DIALYSIS PATIENTS. [id number] 07:27:00 Test Item Value Reference Range Comments MAGNESIUM (BEAKER) (test xske=255) 1.7 mg/dL 1.6-2.6 SCREEN, [id number] 13:54:00 Test Item Value Reference Range Comments TEST URINE (BEAKER) (test ljdv=123) Negative [id number] 02:55:00 Test Item Value Reference Range Comments MAGNESIUM (BEAKER) (test akrc=972) 1.8 mg/dL 1.6-2.6 PHENYTOIN LEVEL, [id number] 00:30:00 Test Item Value Reference Range Comments PHENYTOIN (DILANTIN) (BEAKER) (test tiaa=368) 7.3 ug/mL 10.0-20.0 HEPATIC FUNCTION [id number] 00:26:00 Test Item Value Reference Range Comments TOTAL PROTEIN (BEAKER) (test pjcp=776) 6.4 gm/dL 6.0-8.3 ALBUMIN (BEAKER) (test trhx=6297) 3.8 g/dL 3.5-5.0 BILIRUBIN TOTAL (BEAKER) (test yrsg=702) 0.4 mg/dL 0.2-1.2 BILIRUBIN DIRECT (BEAKER) (test qkkz=160) 0.2 mg/dL 0.1-0.5 ALKALINE PHOSPHATASE (BEAKER) (test cutz=634) 114 U/L 40-150 AST (SGOT) (BEAKER) (test gnse=687) 16 U/L 5-34 ALT (SGPT) (BEAKER) (test wqlo=620) 20 U/L 6-55 BASIC METABOLIC [id number] 00:26:00 Test Item Value Reference Range Comments SODIUM (BEAKER) (test 138 meq/L 136-145 rbsj=988) POTASSIUM (BEAKER) (test 4.0 meq/L 3.5-5.1 nmjn=691) CHLORIDE (BEAKER) (test 109 meq/L 98-107 pzhh=264) CO2 (BEAKER) (test 21 meq/L 22-29 nktf=939) BLOOD UREA NITROGEN 7 mg/dL 7-21 (BEAKER) (test lbrh=798) CREATININE (BEAKER) (test 0.74 mg/dL 0.57-1.25 zauq=394) GLUCOSE RANDOM (BEAKER) 103 mg/dL 70-105 (test hjre=834) CALCIUM (BEAKER) (test 9.0 mg/dL 8.4-10.2 qlib=570) EGFR (BEAKER) (test 88 mL/min/1.73 sq m ESTIMATED GFR IS NOT uhyn=9670) ACCURATE CREATININE CLEARANCE IN PREDICTING GLOMERULAR FILTRATION RATE. ESTIMATED GFR IS NOT APPLICABLE FOR DIALYSIS PATIENTS. [id number] 00:26:00 Test Item Value Reference Range Comments ALBUMIN (BEAKER) (test jymx=1239) 3.8 g/dL 3.5-5.0 CBC W/PLT COUNT & AUTO [id number] 00:16:00 Test Item Value Reference Range Comments WHITE BLOOD CELL COUNT (BEAKER) (test qtsd=011) 10.1 K/ L 4.0-10.0 RED BLOOD CELL COUNT (BEAKER) (test arts=695) 5.45 M/ L 4.00-5.00 HEMOGLOBIN (BEAKER) (test oldy=250) 15.5 GM/DL 12.0-15.0 HEMATOCRIT (BEAKER) (test suom=124) 48.8 % 36.0-45.0 MEAN CORPUSCULAR VOLUME (BEAKER) (test hwjv=739) 89.6 fL 82.0-99.0 MEAN CORPUSCULAR HEMOGLOBIN (BEAKER) (test 28.4 pg 27.0-33.0 sbvc=442) MEAN CORPUSCULAR HEMOGLOBIN CONC (BEAKER) (test 31.7 GM/DL 32.0-36.0 zynu=381) RED CELL DISTRIBUTION WIDTH (BEAKER) (test 15.5 % 10.3-14.2 wnac=235) PLATELET COUNT (BEAKER) (test tyxl=055) 260 K/CU MM 150-430 MEAN PLATELET VOLUME (BEAKER) (test ewpl=449) 7.7 fL 6.5-10.5 NUCLEATED RED BLOOD CELLS (BEAKER) (test 0 /100 WBC 0-0 vtoi=378) NEUTROPHILS RELATIVE PERCENT (BEAKER) (test 83 % hkvk=183) LYMPHOCYTES RELATIVE PERCENT (BEAKER) (test 12 % sswi=898) MONOCYTES RELATIVE PERCENT (BEAKER) (test 4 % flgf=599) EOSINOPHILS RELATIVE PERCENT (BEAKER) (test 0 % smtn=459) BASOPHILS RELATIVE PERCENT (BEAKER) (test 0 % vilb=540) NEUTROPHILS ABSOLUTE COUNT (BEAKER) (test 8.39 K/ L 1.80-8.00 ufjs=593) LYMPHOCYTES ABSOLUTE COUNT (BEAKER) (test 1.24 K/ L 1.48-4.50 sbnd=780) MONOCYTES ABSOLUTE COUNT (BEAKER) (test 0.40 K/ L 0.00-1.30 xvxc=567) EOSINOPHILS ABSOLUTE COUNT (BEAKER) (test 0.03 K/ L 0.00-0.50 lstw=569) BASOPHILS ABSOLUTE COUNT (BEAKER) (test 0.03 K/ L 0.00-0.20 fwmu=093) 0.00
[2019-10-01] MEDS ORDERED: PHENYTOIN ER 100 MG CAP PO ONE (11:55)
[2019-10-01 12:13] LABS: Absolute Lymphocytes (CBC) 1.4 K/uL (0.7-4.9); Basophils % 0.3 % (0-1.3); Lymphocytes % 10.6 % (15.3-44.8); MPV 8.2 fL (7.6-11.3); RBC Red Blood Cell Count 5.26 M/uL (3.86-4.86)
--- NOTE | 2019-10-01 12:29 | RAD REPORT ---
EXAM DESCRIPTION: CT - Head C Spine Mpr Wo Con - 10/01/2019 12:13 pm CLINICAL HISTORY: Head and neck injury status post fall. Head and neck pain . Seizure COMPARISON: July 2019 TECHNIQUE: Computed axial tomography of the head and cervical spine was obtained. Sagittal and coronal reconstruction was performed. All CT scans are performed using dose optimization technique as appropriate and may include automated exposure control or mA/KV adjustment according to patient size. FINDINGS: An intracranial bleed is not seen. The ventricles are normal in caliber. An extra-axial fl uid collection is not noted.Fluid within the visualized sinuses and mastoids is not seen A cervical fracture is not visualized. No dislocation is noted. IMPRESSION: No acute intracranial abnormality is seen. A cervical fracture is not visualized. If the patient continues to have symptoms to suggest intracra nial /spinal cord pathology then MRI would be recommended
[2019-10-01 12:30] LABS: Albumin 3.4 g/dL (3.4-5.0); Bilirubin Total 0.5 mg/dL (0.2-1.0); Protein, Total 6.7 g/dL (6.4-8.2)
--- NOTE | 2019-10-01 12:35 | RAD REPORT ---
EXAM DESCRIPTION: CT - Facial Bones W/ Mpr - 10/01/2019 12:13 pm CLINICAL HISTORY: Facial injury TECHNIQUE: Computed axial tomography of the face was obtained. Coronal and sagittal reconstruction w as performed. All CT scans are performed using dose optimization technique as appropriate and may include automated exposure control or mA/KV adjustment according to patient size. FINDINGS: A fracture is not seen. A TMJ dislocation is not noted. The globes are intact. Fluid within the sinuses is not seen. IMPRESSION: Negative for a facial fracture.
--- NOTE | 2019-10-01 12:48 | RAD REPORT ---
EXAM DESCRIPTION: RAD - Wrist Right 3 View - 10/01/2019 12:34 pm CLINICAL HISTORY: Right wrist pain status post injury FINDINGS: No fracture or dislocation is seen. If the patient continues to have symptoms to suggest a n occult fracture then a followup plain film series in 7 days would be recommended.
--- NOTE | 2019-10-01 13:21 | RAD REPORT ---
EXAM DESCRIPTION: RAD - Shoulder Right 2 View - 10/01/2019 1:15 pm CLINICAL HISTORY: PAIN Seizure, pain COMPARISON: Shoulder Right 2 View dated 08/19/2019 FINDINGS: AC joint degenerative changes are present. A fracture is not seen. Glenohumeral dislocatio n is not suspected.
--- NOTE | 2019-10-01 15:28 | ER ---
Nurse's Notes [facility] Name: Nelia Corley Age: 39 yrs Sex: Female : 1980 Arrival Date: 10/01/2019 Time: 11:38 Bed 17 Private MD: Diagnosis: Epilepsy and recurrent seizures;Facial contusion;medication non-compliance;musculoskeletal pain Presentation: 10/01 11:38 Presenting complaint: EMS states: SEIZURE AT HOME. Transition of care: patient was not bp received from another setting of care. Onset of symptoms is unknown. Risk Assessment: Do you want to hurt yourself or someone else? Patient reports no desire to harm self or others. Initial Sepsis Screen: Does the patient meet any 2 criteria? No. Patient's initial sepsis screen is negative. Does the patient have a suspected source of infection? No. Patient's initial sepsis screen is negative. Care prior to arrival: None. 11:38 Method Of Arrival: EMS: [facility] bp 11:38 Acuity: JENNIFER 3 bp Triage Assessment: 11:43 General: Appears in no apparent distress. comfortable, obese, Behavior is cooperative, bp appropriate for age, anxious. Pain: Complains of pain in right eye and right arm. EENT: No deficits noted. Neuro: Level of Consciousness is awake, alert, obeys commands, Oriented to person, place, time, situation, Appropriate for age. Cardiovascular: No deficits noted. Respiratory: No deficits noted. GI: No signs and/or symptoms were reported involving the gastrointestinal system. : No signs and/or symptoms were reported regarding the genitourinary system. Derm: No deficits noted. Musculoskeletal: No deficits noted. Historical: - Allergies: 11:43 Ceclor; bp 11:43 Sulfa (Sulfonamide Antibiotics); bp 11:43 Ultram; bp - Home Meds: 11:43 None [Active]; bp - PMHx: 11:43 Seizures; ADD/ADHD; Anxiety; CVA; Hyperlipidemia; Hypertension; NSTEMI; right rotator bp cuff torn; - PSHx: 11:43 ; Cholecystectomy; bp - Immunization history:: Adult Immunizations unknown. - Coronavirus screen:: The patient has NOT traveled to [place], [place], or [place] in the past 14 days. Proceed with normal triage process as indicated. The patient has NOT had contact with known/suspected case of Coronavirus? Proceed with normal triage procedures. - Social history:: Smoking status: Patient denies any tobacco usage or history of. - Ebola Screening: : No symptoms or risks identified at this time. Screenin:46 Abuse screen: Denies threats or abuse. Denies injuries from another. Nutritional bp screening: No deficits noted. Tuberculosis screening: No symptoms or risk factors identified. Fall Risk None identified. Assessment: 11:45 General: SEE TRIAGE NOTE. bp 12:04 Reassessment: LABS DRAWN BY PHLEBOTOMY, NO S/S SZ ACTIVITY. bp 12:31 Reassessment: PT RETURNED FROM RADIOLOGY. PT REMAINS NEURO INTACT, NO S/S SZ ACTIVITY. bp 13:34 Reassessment: ALL CURRENT ORDERS COMPLETED, VS STABLE ON MONITOR. DISPO PENDING. NO S/S bp SZ ACTIVITY. 14:45 Reassessment: PT STILL DECLINING TO PROVIDE UOP. MD AWARE. NO S/S SZ ACTIVITY. bp 15:42 Reassessment: PT D/C HOME AMBULATORY, DX WITH SEIZURE. bp Vital Signs: 11:43 BP 160 / 122; Pulse 87; Resp 16; Temp 98; Pulse Ox 96% ; Weight 108.86 kg; bp 13:34 BP 167 / 96; Pulse 67; Resp 23; Pulse Ox 95% ; bp 14:45 BP 170 / 67; Pulse 69; Resp 23; Pulse Ox 95% ; bp 15:31 BP 181 / 94; Pulse 59; Resp 20; Temp 98; Pulse Ox 96% ; bp ED Course: 11:38 Patient arrived in ED. em1 11:38 Fabian Rudd, LELO is Primary Nurse. bp 11:41 Maicol Pete MD is Attending Physician. ps1 11:42 Triage completed. bp 11:43 Arm band placed on. bp 11:46 Patient has correct armband on for positive identification. Bed in low position. Call bp light in reach. Side rails up X2. 13:21 Wrist Right 3 View XRAY Sent. bp 13:21 Shoulder Right (2 View) XRAY Sent. bp 13:21 CMP Sent. bp 13:21 CBC with Diff Sent. bp 13:21 CT Facial Bones W/O Con Sent. bp 13:21 CT Head C Spine Sent. bp 15:42 No provider procedures requiring assistance completed. Patient did not have IV access bp during this emergency room visit. Administered Medications: 11:54 Drug: Dilantin 300 mg Route: PO; bp 12:26 Follow up: Response: No adverse reaction bp Outcome: 15:28 Discharge ordered by . ps1 15:42 Discharged to home ambulatory. bp 15:42 Condition: stable 15:42 Discharge instructions given to patient, Instructed on discharge instructions, follow up and referral plans. medication usage, Demonstrated understanding of instructions, follow-up care, medications, Prescriptions given X 2. 15:43 Patient left the ED. bp Signatures: Aidan Espinosa em1 Fabian Rudd, RN RN bp Maicol Pete MD MD ps1
--- NOTE | 2019-10-01 15:28 | EDPHYS ---
Physician Documentation [facility] Name: Nelia Corley Age: 39 yrs Sex: Female : 1980 Arrival Date: 10/01/2019 Time: 11:38 Bed 17 Private MD: ED Physician Maicol Pete HPI: 10/01 11:44 This 39 yrs old Female presents to ER via EMS with complaints of seizure. ps1 11:44 Patient has known history of seizure treated with dilantin. patient has not taken ps1 medication in 2 weeks. She had a seizure with post ictal period. Injury to left eye, right shoulder, right wrist. AOx3. Ambulating. Pain rated as moderate. Appears mild distress 2/2 pain and anxiety from not knowing what happened to her daughter (at school safe). . Historical: - Allergies: 11:43 Ceclor; bp 11:43 Sulfa (Sulfonamide Antibiotics); bp 11:43 Ultram; bp - Home Meds: 11:43 None [Active]; bp - PMHx: 11:43 Seizures; ADD/ADHD; Anxiety; CVA; Hyperlipidemia; Hypertension; NSTEMI; right rotator bp cuff torn; - PSHx: 11:43 ; Cholecystectomy; bp - Immunization history:: Adult Immunizations unknown. - Coronavirus screen:: The patient has NOT traveled to [place], [place], or [place] in the past 14 days. Proceed with normal triage process as indicated. The patient has NOT had contact with known/suspected case of Coronavirus? Proceed with normal triage procedures. - Social history:: Smoking status: Patient denies any tobacco usage or history of. - Ebola Screening: : No symptoms or risks identified at this time. ROS: 11:44 Constitutional: Negative for fever, chills, and weight loss, Eyes: Negative for injury, ps1 pain, redness, and discharge, Cardiovascular: Negative for chest pain, palpitations, and edema, Respiratory: Negative for shortness of breath, cough, wheezing, and pleuritic chest pain, Abdomen/GI: Negative for abdominal pain, nausea, vomiting, diarrhea, and constipation, Skin: Negative for injury, rash, and discoloration, Neuro: Negative for headache, weakness, numbness, tingling, and seizure. 11:44 MS/extremity: Positive for contusion, tenderness, of the right wrist. 11:44 Neuro: Positive for seizure activity. Exam: 11:44 Constitutional: This is a well developed, well nourished patient who is awake, alert, ps1 and in no acute distress. Eyes: Pupils equal round and reactive to light, extra-ocular motions intact. Lids and lashes normal. Conjunctiva and sclera are non-icteric and not injected. Chest/axilla: Normal chest wall appearance and motion. Nontender with no deformity. No lesions are appreciated. Cardiovascular: Regular rate and rhythm. No gallops, murmurs, or rubs. Normal PMI, no JVD. No pulse deficits. Respiratory: Lungs have equal breath sounds bilaterally, clear to auscultation and percussion. No rales, rhonchi or wheezes noted. No increased work of breathing, no retractions or nasal flaring. Abdomen/GI: Soft, non-tender, with normal bowel sounds. No distension or tympany. No guarding or rebound. No evidence of tenderness throughout. Back: No spinal tenderness. No costovertebral tenderness. Full range of motion. Skin: Warm, dry with normal turgor. Normal color with no rashes, no lesions, and no evidence of cellulitis. 11:44 Head/face: Noted is no obvious of injury or deformity except contusion, that is superficial, of the left eye. 11:44 Neuro: Orientation: to person, place \T\ time. Mentation: is normal, Memory: immediate memory is impaired. Vital Signs: 11:43 BP 160 / 122; Pulse 87; Resp 16; Temp 98; Pulse Ox 96% ; Weight 108.86 kg; bp 13:34 BP 167 / 96; Pulse 67; Resp 23; Pulse Ox 95% ; bp 14:45 BP 170 / 67; Pulse 69; Resp 23; Pulse Ox 95% ; bp 15:31 BP 181 / 94; Pulse 59; Resp 20; Temp 98; Pulse Ox 96% ; bp MDM: 12:27 Patient medically screened. ps1 10/01 11:44 Order name: CBC with Diff ps1 10/01 11:44 Order name: CMP ps1 10/01 11:44 Order name: CT Head C Spine ps1 10/01 11:44 Order name: CT Facial Bones W/O Con ps1 10/01 12:21 Order name: CBC with Automated Diff; Complete Time: 12:27 EDMS 10/01 12:31 Order name: Comprehensive Metabolic Panel; Complete Time: 12:38 EDAZ 10/01 11:44 Order name: Urine Dipstick-Ancillary (obtain specimen); Complete Time: 15:22 [facility] 10/01 11:44 Order name: Shoulder Right (2 View) XRAY [facility] 10/01 11:44 Order name: Wrist Right 3 View XRAY [facility] 10/01 12:48 Order name: CT; Complete Time: 13:13 EDAZ 10/01 12:48 Order name: CT; Complete Time: 13:13 EDAZ 10/01 12:55 Order name: RAD; Complete Time: 13:13 EDAZ 10/01 13:58 Order name: RAD; Complete Time: 14:05 EDAZ Administered Medications: 11:54 Drug: Dilantin 300 mg Route: PO; bp 12:26 Follow up: Response: No adverse reaction bp Disposition: 10/01/19 15:28 Discharged to Home. Impression: Epilepsy and recurrent seizures, Facial contusion, medication non-compliance, musculoskeletal pain. - Condition is Stable. - Discharge Instructions: Seizure, Adult. - Prescriptions for Anaprox DS 550 mg Oral Tablet - take 1 tablet by ORAL route every 12 hours As needed; 20 tablet. Dilantin Kapseal 100 mg Oral Capsule - take 1 capsule by ORAL route every 8 hours; 30 capsule. - Medication Reconciliation Form, Thank You Letter, Antibiotic Education, Prescription Opioid Use form. - Follow up: Private Physician; When: 48 Hours; Reason: Further diagnostic work-up, Recheck today's complaints, Re-evaluation by your physician. Follow up: Emergency Department; When: As needed; Reason: Fever > 102 F, Trouble breathing, Worsening of condition. - Problem is an ongoing problem. - Symptoms have improved. Signatures: Dispatcher [employer] Fabian Plascencia RN RN Maicol Rosario MD MD ps1 Corrections: (The following items were deleted from the chart) 15:43 15:28 10/01/2019 15:28 Discharged to Home. Impression: Epilepsy and recurrent seizures; bp Facial contusion; medication non-compliance; musculoskeletal pain. Condition is Stable. Forms are Medication Reconciliation Form, Thank You Letter, Antibiotic Education, Prescription Opioid Use. Follow up: Private Physician; When: 48 Hours; Reason: Further diagnostic work-up, Recheck today's complaints, Re-evaluation by your physician. Follow up: Emergency Department; When: As needed; Reason: Fever > 102 F, Trouble breathing, Worsening of condition. Problem is an ongoing problem. Symptoms have improved. ps1
[2019-10-03 08:00] VITALS: TEMP 98
[2019-10-03 08:04] VITALS: BP 181/94; O2SAT 96
== END 2019-10-01 15:43 | disposition home or self-care (01) ==
LOC: ER 11:34
DX: G40.802 Other epilepsy, not intractable, without status epilepticus (principal); S00.83XA Contusion of other part of head, initial encounter; M79.18 Myalgia, other site; Z91.14 Patient's other noncompliance with medication regimen; I10 Essential (primary) hypertension; Z88.2 Allergy status to sulfonamides; Z88.8 Allergy status to other drugs, medicaments and biological substances
CPT/HCPCS: 36415; 70450; 70486; 72125; 76377; 80053; 85025; 99284

== ENCOUNTER 2019-11-18 07:40 | Emergency (ER) | payer OTHER ==
--- OUTSIDE RECORDS SUMMARY | 2019-11-18 07:42 | XMS REPORT ---
:1980 [facility] [address] [place] [address] Care Team Providers Name Role Phone MILAGRO [...] Range Comments ANTICARDIOLIPIN IGG ANTIBODY (BEAKER) (test dgpn=582) < GPL ANTICARDIOLIPIN IGM ANTIBODY (BEAKER) (test kint=771) 0.6 MPL Anticardiolipin IgG Result Interpretation: NEG:<20 GPL; U/mlPOS:>/=20 GPL ;U/mlAnticardiolipinIgM Result Interpretation: NEG:<20 MPL; U/mlPOS:>/= 20 MPL;U/[id number] 19:19:00 Test Item Value Reference Range Comments HOMOCYSTEINE (BEAKER) (test rbdb=194) 19.1 umol/L 5.1-15.4 HEMOGLOBIN [id number] 16:55:00 Test Item Value Reference Range Comments HEMOGLOBIN A1C (BEAKER) (test wjnj=752) 5.1 % 4.3-6.1 TSH/FREE T4 IF [id number] 16:00:00 Test Item Value Reference Range Comments THYROID STIMULATING HORMONE (BEAKER) (test 1.64 uIU/mL 0.35-4.94 nqwx=423) VITAMIN B12 AND [id number] 16:00:00 Test Item Value Reference Range Comments VITAMIN B12 (BEAKER) (test swzn=925) 241 pg/mL 213-816 FOLATE (BEAKER) (test pjav=482) 3.7 ng/mL >=7.0 Effective 07/08/2014: Folate Reference Range ChangeNew: >=7.0 Previous: & gt;=5.4SEDIMENTATION [id number] 15:57:00 Test Item Value Reference Range Comments SEDIMENTATION RATE, ERYTHROCYTE (BEAKER) (test 8 mm/HR 0-20 lctt=363) LIPID [id number] 15:32:00 Test Item Value Reference Range Comments TRIGLYCERIDES (BEAKER) (test gurw=286) 98 mg/dL CHOLESTEROL (BEAKER) (test dnnd=723) 200 mg/dL HDL CHOLESTEROL (BEAKER) (test voor=920) 51 mg/dL LDL CHOLESTEROL CALCULATED (BEAKER) (test 129 mg/dL lnhh=297) Triglyceride Reference Range: Low Risk <150 Borderline 150- 199 High Risk 200-499 Very High Risk >=500Cholesterol Reference Range: Low Risk <200 Borderline 200-239 High Risk > 240HDL Cholesterol Reference Range: Low Risk >=60 High Risk <40LDL Cholesterol Reference Range: Optimal <100 Near Optimal 100-129 Borderline 130-159 High 160-189 Very High >=190C-REACTIVE [id number] 15:30:00 Test Item Value Reference Range Comments C-REACTIVE PROTEIN (BEAKER) (test oztl=216) 2.96 mg/dL 0.00-0.50 CBC W/PLT COUNT & AUTO [id number] 15:05:00 Test Item Value Reference Range Comments WHITE BLOOD CELL COUNT (BEAKER) (test shwy=727) 7.8 K/ L 4.0-10.0 RED BLOOD CELL COUNT (BEAKER) (test tqjm=408) 5.50 M/ L 4.00-5.00 HEMOGLOBIN (BEAKER) (test hcxi=588) 16.4 GM/DL 12.0-15.0 HEMATOCRIT (BEAKER) (test tlzi=803) 48.2 % 36.0-45.0 MEAN CORPUSCULAR VOLUME (BEAKER) (test xeqc=382) 87.7 fL 82.0-99.0 MEAN CORPUSCULAR HEMOGLOBIN (BEAKER) (test 29.8 pg 27.0-33.0 btmb=092) MEAN CORPUSCULAR HEMOGLOBIN CONC (BEAKER) (test 34.0 GM/DL 32.0-36.0 kvhs=221) RED CELL DISTRIBUTION WIDTH (BEAKER) (test 15.3 % 10.3-14.2 gqxr=503) PLATELET COUNT (BEAKER) (test rdxe=262) 217 K/CU MM 150-430 MEAN PLATELET VOLUME (BEAKER) (test sqtn=088) 7.3 fL 6.5-10.5 NUCLEATED RED BLOOD CELLS (BEAKER) (test 0 /100 WBC 0-0 ydsj=614) NEUTROPHILS RELATIVE PERCENT (BEAKER) (test 67 % kwdu=648) LYMPHOCYTES RELATIVE PERCENT (BEAKER) (test 22 % owez=512) MONOCYTES RELATIVE PERCENT (BEAKER) (test 8 % uwdz=388) EOSINOPHILS RELATIVE PERCENT (BEAKER) (test 1 % jggh=634) BASOPHILS RELATIVE PERCENT (BEAKER) (test 2 % ohie=041) NEUTROPHILS ABSOLUTE COUNT (BEAKER) (test 5.25 K/ L 1.80-8.00 lmde=254) LYMPHOCYTES ABSOLUTE COUNT (BEAKER) (test 1.68 K/ L 1.48-4.50 ssyq=992) MONOCYTES ABSOLUTE COUNT (BEAKER) (test 0.65 K/ L 0.00-1.30 hfch=742) EOSINOPHILS ABSOLUTE COUNT (BEAKER) (test 0.09 K/ L 0.00-0.50 aeip=129) BASOPHILS ABSOLUTE COUNT (BEAKER) (test 0.14 K/ L 0.00-0.20 ihdl=862) [id number] 07:34:00 Test Item Value Reference Range Comments MAGNESIUM (BEAKER) (test 2.0 mg/dL 1.6-2.6 Specimen slightly hemolyzed rhtq=537) BASIC METABOLIC [id number] 07:33:00 Test Item Value Reference Range Comments SODIUM (BEAKER) (test 136 meq/L 136-145 ziwy=062) POTASSIUM (BEAKER) (test 4.1 meq/L 3.5-5.1 jfst=618) CHLORIDE (BEAKER) (test 107 meq/L 98-107 zbbw=993) CO2 (BEAKER) (test 20 meq/L 22-29 vafl=302) BLOOD UREA NITROGEN 10 mg/dL 7-21 (BEAKER) (test lpeb=064) CREATININE (BEAKER) (test 0.72 mg/dL 0.57-1.25 uxck=669) GLUCOSE RANDOM (BEAKER) 84 mg/dL 70-105 (test emtz=030) CALCIUM (BEAKER) (test 8.3 mg/dL 8.4-10.2 yxqf=742) EGFR (BEAKER) (test 91 mL/min/1.73 sq m ESTIMATED GFR IS NOT dmuq=9779) ACCURATE CREATININE CLEARANCE IN PREDICTING GLOMERULAR FILTRATION RATE. ESTIMATED GFR IS NOT APPLICABLE FOR DIALYSIS PATIENTS. [id number] 07:27:00 Test Item Value Reference Range Comments MAGNESIUM (BEAKER) (test iull=397) 1.7 mg/dL 1.6-2.6 SCREEN, [id number] 13:54:00 Test Item Value Reference Range Comments TEST URINE (BEAKER) (test pdnf=720) Negative [id number] 02:55:00 Test Item Value Reference Range Comments MAGNESIUM (BEAKER) (test ebay=710) 1.8 mg/dL 1.6-2.6 PHENYTOIN LEVEL, [id number] 00:30:00 Test Item Value Reference Range Comments PHENYTOIN (DILANTIN) (BEAKER) (test bjdu=986) 7.3 ug/mL 10.0-20.0 HEPATIC FUNCTION [id number] 00:26:00 Test Item Value Reference Range Comments TOTAL PROTEIN (BEAKER) (test pxqn=130) 6.4 gm/dL 6.0-8.3 ALBUMIN (BEAKER) (test lsrk=7795) 3.8 g/dL 3.5-5.0 BILIRUBIN TOTAL (BEAKER) (test ounj=638) 0.4 mg/dL 0.2-1.2 BILIRUBIN DIRECT (BEAKER) (test jben=625) 0.2 mg/dL 0.1-0.5 ALKALINE PHOSPHATASE (BEAKER) (test vkmj=994) 114 U/L 40-150 AST (SGOT) (BEAKER) (test doxn=751) 16 U/L 5-34 ALT (SGPT) (BEAKER) (test wuyc=707) 20 U/L 6-55 BASIC METABOLIC [id number] 00:26:00 Test Item Value Reference Range Comments SODIUM (BEAKER) (test 138 meq/L 136-145 zhup=729) POTASSIUM (BEAKER) (test 4.0 meq/L 3.5-5.1 mzkk=817) CHLORIDE (BEAKER) (test 109 meq/L 98-107 gkgp=146) CO2 (BEAKER) (test 21 meq/L 22-29 qflr=180) BLOOD UREA NITROGEN 7 mg/dL 7-21 (BEAKER) (test setu=338) CREATININE (BEAKER) (test 0.74 mg/dL 0.57-1.25 aool=151) GLUCOSE RANDOM (BEAKER) 103 mg/dL 70-105 (test ksui=791) CALCIUM (BEAKER) (test 9.0 mg/dL 8.4-10.2 qbxb=371) EGFR (BEAKER) (test 88 mL/min/1.73 sq m ESTIMATED GFR IS NOT pywj=3654) ACCURATE CREATININE CLEARANCE IN PREDICTING GLOMERULAR FILTRATION RATE. ESTIMATED GFR IS NOT APPLICABLE FOR DIALYSIS PATIENTS. [id number] 00:26:00 Test Item Value Reference Range Comments ALBUMIN (BEAKER) (test dgzx=6932) 3.8 g/dL 3.5-5.0 CBC W/PLT COUNT & AUTO [id number] 00:16:00 Test Item Value Reference Range Comments WHITE BLOOD CELL COUNT (BEAKER) (test thoy=970) 10.1 K/ L 4.0-10.0 RED BLOOD CELL COUNT (BEAKER) (test pyln=273) 5.45 M/ L 4.00-5.00 HEMOGLOBIN (BEAKER) (test eucp=585) 15.5 GM/DL 12.0-15.0 HEMATOCRIT (BEAKER) (test tvbd=437) 48.8 % 36.0-45.0 MEAN CORPUSCULAR VOLUME (BEAKER) (test rcuk=315) 89.6 fL 82.0-99.0 MEAN CORPUSCULAR HEMOGLOBIN (BEAKER) (test 28.4 pg 27.0-33.0 xgxm=438) MEAN CORPUSCULAR HEMOGLOBIN CONC (BEAKER) (test 31.7 GM/DL 32.0-36.0 rpzi=712) RED CELL DISTRIBUTION WIDTH (BEAKER) (test 15.5 % 10.3-14.2 zpzu=572) PLATELET COUNT (BEAKER) (test drgr=440) 260 K/CU MM 150-430 MEAN PLATELET VOLUME (BEAKER) (test ldaz=125) 7.7 fL 6.5-10.5 NUCLEATED RED BLOOD CELLS (BEAKER) (test 0 /100 WBC 0-0 kbtp=505) NEUTROPHILS RELATIVE PERCENT (BEAKER) (test 83 % draa=312) LYMPHOCYTES RELATIVE PERCENT (BEAKER) (test 12 % rpds=154) MONOCYTES RELATIVE PERCENT (BEAKER) (test 4 % jdyy=986) EOSINOPHILS RELATIVE PERCENT (BEAKER) (test 0 % ljri=815) BASOPHILS RELATIVE PERCENT (BEAKER) (test 0 % cqtt=699) NEUTROPHILS ABSOLUTE COUNT (BEAKER) (test 8.39 K/ L 1.80-8.00 love=692) LYMPHOCYTES ABSOLUTE COUNT (BEAKER) (test 1.24 K/ L 1.48-4.50 mbnu=731) MONOCYTES ABSOLUTE COUNT (BEAKER) (test 0.40 K/ L 0.00-1.30 epft=599) EOSINOPHILS ABSOLUTE COUNT (BEAKER) (test 0.03 K/ L 0.00-0.50 qvgr=195) BASOPHILS ABSOLUTE COUNT (BEAKER) (test 0.03 K/ L 0.00-0.20 xhas=622) 0.00
[2019-11-18] MEDS ORDERED: FOSPHENYTOIN PE 1,000 MG in NA CHLORIDE 0.9% 100 ML IV ONE (08:15)
[2019-11-18 08:19] LABS: Absolute Lymphocytes (CBC) 1.3 K/uL (0.7-4.9); Basophils % 0.7 % (0-1.3); Hematocrit 44.8 % (36.0-45.0); Lymphocytes % 9.9 % (15.3-44.8); MPV 8.2 fL (7.6-11.3)
[2019-11-18 08:37] LABS: Phenytoin (Dilantin) Level 0.7 ug/mL (10.0-20.0); Potassium 3.7 mmol/L (3.5-5.1)
[2019-11-18] MEDS ORDERED: ONDANSETRON 4 MG/2 ML VIAL ONE (08:47)
[2019-11-18 08:51] LABS: Urine Blood TRACE (NEG); Urine Glucose NEGATIVE (NEG); Urine Protein NEGATIVE (NEG); Urine Specific Gravity >1.030 (1.005-1.030)
--- NOTE | 2019-11-18 09:08 | ER ---
Nurse's Notes [facility] Name: Nelia Corley Age: 39 yrs Sex: Female : 1980 Arrival Date: 11/18/2019 Time: 07:42 Bed 5 Private MD: Diagnosis: Epilepsy and recurrent seizures Presentation: 11/17 07:43 Chief complaint: EMS states: Toned out for 39 F, multiple seizures this morning, pt jl7 sitting on couch crying, reported PARDO and arm pain, does not remember anything. Pt denies fever, cough, congestion. Coronavirus screen: Patient denies fever greater than 100.4F, cough, shortness of breath, or difficulty breathing. Proceed with normal triage process. Ebola Screen: No symptoms or risks identified at this time. Initial Sepsis Screen: Does the patient meet any 2 criteria? No. Patient's initial sepsis screen is negative. Does the patient have a suspected source of infection? No. Patient's initial sepsis screen is negative. Risk Assessment: Do you want to hurt yourself or someone else? Patient reports no desire to harm self or others. Onset of symptoms was November 18, 2019. 07:43 Method Of Arrival: EMS: [facility] 07:43 Acuity: JENNIFER 3 jl7 Triage Assessment: 07:49 General: Appears in no apparent distress. uncomfortable, Behavior is cooperative, jl7 anxious, crying. Pain: Complains of pain in right arm and left arm and PARDO Pain currently is 8 out of 10 on a pain scale. Neuro: Level of Consciousness is awake, alert, obeys commands, Oriented to person, place, time. Cardiovascular: Patient's skin is warm and dry. Respiratory: Airway is patent Respiratory effort is even, unlabored, Respiratory pattern is regular, symmetrical. Derm: Skin is pink, warm \T\ dry. 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 jl7 Historical: - Allergies: 07:49 Ceclor; jl7 07:49 Sulfa (Sulfonamide Antibiotics); jl7 07:49 Ultram; jl7 - Home Meds: 07:49 Lisinopril Oral [Active]; phenytoin Oral [Active]; Clonidine Oral [Active]; jl7 atorvastatin oral oral [Active]; Metoprolol Tartrate Oral [Active]; topiramate oral oral [Active]; aspirin Oral [Active]; folic acid Oral [Active]; Hydralazine Oral [Active]; amlodipine oral [Active]; - PMHx: 07:49 ADD/ADHD; Anxiety; CVA; Hyperlipidemia; Hypertension; NSTEMI; right rotator cuff torn; jl7 Seizures; - PSHx: 07:49 ; Cholecystectomy; jl7 - Immunization history:: Adult Immunizations unknown. - Social history:: Smoking status: Patient reports the use of cigarette tobacco products, smokes one pack cigarettes per day. Screenin:44 Abuse screen: Denies threats or abuse. Denies injuries from another. Nutritional sv screening: No deficits noted. Tuberculosis screening: No symptoms or risk factors identified. Fall Risk No fall in past 12 months (0 pts). Secondary diagnosis (15 points) seizures, No IV (0 pts). Ambulatory Aid- None/Bed Rest/Nurse Assist (0 pts). Gait- Normal/Bed Rest/Wheelchair (0 pts) Mental Status- Oriented to own ability (0 pts). Total Babcock Fall Scale indicates No Risk (0-24 pts). Assessment: 08:00 General: see triage assessment. jl7 09:00 Reassessment: Patient appears in no apparent distress at this time. Patient and/or jl7 family updated on plan of care and expected duration. Pain level reassessed. Patient is alert, oriented x 3, equal unlabored respirations, skin warm/dry/pink. Vital Signs: 07:43 BP 169 / 116; Pulse 95; Resp 22; Temp 98.1; Pulse Ox 95% ; Weight 113.4 kg; Height 5 sv ft. 2 in. (157.48 cm); Pain 8/10; 08:47 BP 155 / 95; Pulse 90; Resp 16 S; Pulse Ox 97% on R/A; jl7 07:43 Body Mass Index 45.73 (113.40 kg, 157.48 cm) sv ED Course: 07:42 Patient arrived in ED. sv 07:42 Marcela Radford RN is Primary Nurse. jl7 07:43 Arm band placed on Patient placed in an exam room, on a stretcher, on pulse oximetry. sv 07:44 Elroy Redman NP is PHCP. pm1 07:44 Cj Mckeon MD is Attending Physician. pm1 07:44 Patient has correct armband on for positive identification. Placed in gown. Bed in low sv position. Call light in reach. Side rails up X2. Seizure precautions initiated. Pulse ox on. NIBP on. Door closed. Warm blanket given. Head of bed elevated. 07:45 Triage completed. jl7 08:05 Inserted saline lock: 22 gauge in right wrist, using aseptic technique. Blood sv collected. Flushed left with 5 ml normal saline. 08:11 CBC with Diff Sent. sv 08:22 EKG done, by technical maintenance specialist. reviewed by Elroy Redman NP. at1 10:22 No provider procedures requiring assistance completed. IV discontinued, intact, jl7 bleeding controlled, No redness/swelling at site. Pressure dressing applied. Administered Medications: 08:20 Drug: Fosphenytoin 1 grams Route: IVPB; Site: left wrist; jl7 08:46 Drug: Zofran (Ondansetron) 4 mg Route: IVP; Site: left wrist; jl7 Outcome: 09:07 Discharge ordered by MD. pm1 10:22 Discharged to home ambulatory. jl7 10:22 Condition: stable 10:22 Discharge instructions given to patient, Instructed on discharge instructions, follow up and referral plans. medication usage, Demonstrated understanding of instructions, follow-up care, medications, Prescriptions given X 1. 10:22 Patient left the ED. jl7 Signatures: Ophelia Witt, LELO RN Christin Maldonado, turret lathe tender EKG Tat1 Elroy Redman NP PAYABLE REPRESENTATIVE pm1 Marcela Radford, LELO carrasco7
--- NOTE | 2019-11-18 09:08 | EDPHYS ---
Physician Documentation [facility] Name: Nelia Corley Age: 39 yrs Sex: Female : 1980 Arrival Date: 11/18/2019 Time: 07:42 Bed 5 Private MD: Cj Callahan HPI: 11/17 07:56 This 39 yrs old Female presents to ER via EMS with complaints of Probable pm1 Seizure. 07:56 The patient presents with a history of multiple seizures, a total of 2, after having a pm1 possible seizure episode, no post-ictal period is described, the episode(s) was witnessed, by family, sister. Character of seizure(s): Motor activity: generalized. Seizure onset: just prior to arrival. Seizure Hx: Patient with known history of seizures and history of noncompliance with seizure medication. Patient reports that she ran out of her seizure medication two days ago and did not take any medications yesterday. according to ER visit on 10/01/2019, patient was seen for seizure activity due to not taking her dilantin for 6 weeks. Patient reports that she is currently taking her medication 2 times per day despite prescriptions from prior ER visit showing dilantin TID. Associated injury: The patient did not suffer any apparent associated injury. EMS care: none. Current symptoms: headache. The patient has experienced similar episodes in the past, multiple times. The patient has not recently seen a physician. 08:01 Patient reports history of marijuana use. 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 jl7 Historical: - Allergies: 07:49 Ceclor; jl7 07:49 Sulfa (Sulfonamide Antibiotics); jl7 07:49 Ultram; jl7 - Home Meds: 07:49 Lisinopril Oral [Active]; phenytoin Oral [Active]; Clonidine Oral [Active]; jl7 atorvastatin oral oral [Active]; Metoprolol Tartrate Oral [Active]; topiramate oral oral [Active]; aspirin Oral [Active]; folic acid Oral [Active]; Hydralazine Oral [Active]; amlodipine oral [Active]; - PMHx: 07:49 ADD/ADHD; Anxiety; CVA; Hyperlipidemia; Hypertension; NSTEMI; right rotator cuff torn; jl7 Seizures; - PSHx: 07:49 ; Cholecystectomy; jl7 - Immunization history:: Adult Immunizations unknown. - Social history:: Smoking status: Patient reports the use of cigarette tobacco products, smokes one pack cigarettes per day. ROS: 07:56 Constitutional: Negative for fever, chills, and weight loss, Neck: Negative for injury, pm1 pain, and swelling, Cardiovascular: Negative for chest pain, palpitations, and edema, Respiratory: Negative for shortness of breath, cough, wheezing, and pleuritic chest pain, Abdomen/GI: Negative for abdominal pain, nausea, vomiting, diarrhea, and constipation. 07:56 Back: Negative for injury and pain, Skin: Negative for injury, rash, and discoloration. 07:56 MS/extremity: Positive for pain, of the right shoulder. 07:56 Neuro: Positive for headache, seizure activity, Negative for altered mental status, numbness, tingling, weakness. Exam: 07:56 Constitutional: This is a well developed, well nourished patient who is awake, alert, pm1 and in no acute distress. Head/Face: Normocephalic, atraumatic. Eyes: Pupils equal round and reactive to light, extra-ocular motions intact. Lids and lashes normal. Conjunctiva and sclera are non-icteric and not injected. Cornea within normal limits. Periorbital areas with no swelling, redness, or edema. Neck: Trachea midline, no thyromegaly or masses palpated, and no cervical lymphadenopathy. Supple, full range of motion without nuchal rigidity, or vertebral point tenderness. No Meningismus. Chest/axilla: Normal chest wall appearance and motion. Nontender with no deformity. No lesions are appreciated. Cardiovascular: Regular rate and rhythm with a normal S1 and S2. No gallops, murmurs, or rubs. Normal PMI, no JVD. No pulse deficits. Respiratory: Lungs have equal breath sounds bilaterally, clear to auscultation and percussion. No rales, rhonchi or wheezes noted. No increased work of breathing, no retractions or nasal flaring. Abdomen/GI: Soft, non-tender, with normal bowel sounds. No distension or tympany. No guarding or rebound. No evidence of tenderness throughout. Back: No spinal tenderness. No costovertebral tenderness. Full range of motion. Skin: Warm, dry with normal turgor. Normal color with no rashes, no lesions, and no evidence of cellulitis. 07:56 Musculoskeletal/extremity: Extremities: grossly normal except: noted in the lateral aspect of right shoulder - deltoid: tenderness, There is no evidence of decreased ROM, deformity, ecchymosis, swelling. 07:56 Neuro: Orientation: is normal, Mentation: is normal, Motor: is normal, moves all fours. Vital Signs: 07:43 BP 169 / 116; Pulse 95; Resp 22; Temp 98.1; Pulse Ox 95% ; Weight 113.4 kg; Height 5 sv ft. 2 in. (157.48 cm); Pain 8/10; 08:47 BP 155 / 95; Pulse 90; Resp 16 S; Pulse Ox 97% on R/A; jl7 07:43 Body Mass Index 45.73 (113.40 kg, 157.48 cm) sv MDM: 07:44 Patient medically screened. pm1 08:40 ED course: Patient complaining of right shoulder pain. Patient told that she has a pm1 rotator cuff injury to both shoulders. Told the patient I would order shoulder x-rays but she refused. 09:02 Data reviewed: vital signs. Data interpreted: Pulse oximetry: on room air is 97 %. pm1 Interpretation: normal. 09:06 Counseling: I had a detailed discussion with the patient and/or guardian regarding: the pm1 historical points, exam findings, and any diagnostic results supporting the discharge/admit diagnosis, lab results, radiology results, the need for outpatient follow up, for definitive care, a neurologist, to return to the emergency department if symptoms worsen or persist or if there are any questions or concerns that arise at home. 09:06 ED course: Reports that she has appointment with her neurologist today. pm1 11/17 07:51 Order name: CBC with Diff pm1 11/17 07:51 Order name: BMP; Complete Time: 08:39 pm1 11/17 07:51 Order name: Dilantin; Complete Time: 08:39 pm1 11/17 07:51 Order name: UDS; Complete Time: 09:20 pm1 11/17 07:51 Order name: CBC with Automated Diff; Complete Time: 08:39 EDMS 11/17 08:49 Order name: Urine Dipstick--Ancillary (enter results) bd 11/17 07:51 Order name: IV Saline Lock; Complete Time: 08:11 pm1 11/17 07:51 Order name: Urine Dipstick-Ancillary (obtain specimen); Complete Time: 08:46 pm1 11/17 07:51 Order name: EKG; Complete Time: 07:52 pm1 11/17 08:49 Order name: Urine --Ancillary (enter results) bd 11/17 08:52 Order name: Urine --Ancillary; Complete Time: 09:01 EDUT 11/17 08:52 Order name: Urine Dipstick-Ancillary; Complete Time: 09:01 EDUT 11/17 07:51 Order name: Urine Test (obtain specimen); Complete Time: 08:46 pm1 11/17 07:51 Order name: EKG - Nurse/Tech; Complete Time: 08:25 pm1 EC:21 Rate is 73 beats/min. QT interval is normal. No Q waves. T waves are Normal. No ST pm1 changes noted. Clinical impression: Normal ECG. Administered Medications: 08:20 Drug: Fosphenytoin 1 grams Route: IVPB; Site: left wrist; jl7 08:46 Drug: Zofran (Ondansetron) 4 mg Route: IVP; Site: left wrist; jl7 Disposition: 17:08 Co-signature as Attending Physician, Cj Mckeon MD I agree with the assessment and isaak plan of care. Disposition: 11/18/19 09:07 Discharged to Home. Impression: Epilepsy and recurrent seizures. - Condition is Stable. - Discharge Instructions: Seizure, Adult, [id number]. - Prescriptions for Dilantin Kapseal 100 mg Oral Capsule - take 1 capsule by ORAL route every 8 hours; 30 capsule. - Medication Reconciliation Form, Thank You Letter, Antibiotic Education, Prescription Opioid Use form. - Follow up: Emergency Department; When: As needed; Reason: Worsening of condition. Follow up: Private Physician; When: 2 - 3 days; Reason: Recheck today's complaints, Continuance of care, Re-evaluation by your physician. - Problem is new. - Symptoms have improved. Signatures: Dispatcher [employer] Cj Bray MD MD cha Marinas, Patrick, DOT COMPLIANCE MANAGER DOT COMPLIANCE MANAGER pm1 Marcela Radford RN RN jl7 Corrections: (The following items were deleted from the chart) 10:22 09:07 11/18/2019 09:07 Discharged to Home. Impression: Epilepsy and recurrent seizures. jl7 Condition is Stable. Forms are Medication Reconciliation Form, Thank You Letter, Antibiotic Education, Prescription Opioid Use. Follow up: Emergency Department; When: As needed; Reason: Worsening of condition. Follow up: Private Physician; When: 2 - 3 days; Reason: Recheck today's complaints, Continuance of care, Re-evaluation by your physician. Problem is new. Symptoms have improved. pm1
[2019-11-18 09:13] LABS: Barbiturates NEGATIVE (NEGATIVE); Benzodiazepines NEGATIVE (NEGATIVE); Cocaine NEGATIVE (NEGATIVE); METHAMPHETAM NEGATIVE (NEGATIVE); Methadone NEGATIVE (NEGATIVE); Opiates NEGATIVE (NEGATIVE); Phencyclidine NEGATIVE (NEGATIVE); THC Cannibis POSITIVE (NEGATIVE)
[2019-11-18 10:50] VITALS: TEMP 98.1
[2019-11-18 10:52] VITALS: BP 155/95; O2SAT 97
--- NOTE | 2019-11-19 05:25 | EKG ---
Test Date: 2019-11-18 Test Time: 08:19:37 Print Controller: CHRISTI MEASUREMENT RESULTS: Intervals: Rate: 73 WA: 152 QRSD: 82 QT: 396 QTc: 436 [place]: P: 59 WA: 152 QRS: 60 T: 71 INTERPRETIVE STATEMENTS: Normal sinus rhythm with sinus arrhythmia Normal ECG Compared to ECG 08/19/2019 18:24:30 No significant changes Electronically Signed On 11-19-19 05:24:09 CDT by Diaz Almanzar
== END 2019-11-18 10:22 | disposition home or self-care (01) ==
LOC: ER 07:40
DX: G40.802 Other epilepsy, not intractable, without status epilepticus (principal); M25.511 Pain in right shoulder; I10 Essential (primary) hypertension; E78.5 Hyperlipidemia, unspecified; F90.9 Attention-deficit hyperactivity disorder, unspecified type; F17.210 Nicotine dependence, cigarettes, uncomplicated; Z79.82 Long term (current) use of aspirin; Z88.2 Allergy status to sulfonamides; Z88.5 Allergy status to narcotic agent; Z88.8 Allergy status to other drugs, medicaments and biological substances
CPT/HCPCS: 93005; 85025; 80048; 36415; 81025; 80307 ×8; 80185; 81003; 96375; 96374; 99284; Q2009; J2405

== ENCOUNTER 2020-01-25 07:13 | Emergency (ER) | payer OTHER ==
--- OUTSIDE RECORDS SUMMARY | 2020-01-25 07:16 | XMS REPORT | Clinical Summary ---
:1980 Author Organization [facility] [email or web address] [facility] Address [address] [place] [address] Care Team Providers Name Role Phone Louie Primary Care Provider Allergies Active Allergy Reactions Severity Noted Date Comments Cefaclor 10/14/2016 Sulfa (Sulfonamide Antibiotics) 7 Ketorolac 10/14/2016 Medications Medication Sig Dispensed Refills [...] Not on file Results Not on fileafter 01/24/2019 Insurance Payer Benefit Plan / Subscriber ID Type Phone Address Group MEDICAID - MEDICAID [facility] xxxxxxxxx Medicaid Contracted [employer] CARE PLAN Advance Directives For more information, please contact:[facility] [employer] [id number] [place], [place] [phone] Code Status Date Activated Date Inactivated Comments Full Code 10/14/2016 3:43 PM 10/18/2016 2:41 AM This code status was determined by: Patient
--- OUTSIDE RECORDS SUMMARY | 2020-01-25 07:17 | XMS REPORT | Summary of Care ---
:1980 Author Organization [facility] Address [address] [place] [id number] Care Team Providers Name Role Phone Jaime Mckeon Primary Care Provider Reason for Visit Reason Comments UPPER RESPIRATORY INFECTION Encounter Details Date Type Department Care Team Description 11/25/2019 Telephone [facility] Family Pob1, Acute Care UPPER RESPIRATORY Medicine - [facility] INFECTION [address] [place] [phone] Allergies Active Allergy Reactions Severity Noted Date Comments Ketorolac Other - See comments 01/04/2019 Seizure Tramadol Other - See comments 01/10/2019 Seizure documented as of this encounter (statuses as of 11/25/2019) Medications Medication Sig Dispensed Refills Start Date End Date Status cyclobenzaprine 5 mg Take 1 tablet by 30 tablet 0 02/16/2017 Active tablet mouth 3 (three) times daily. ciprofloxacin HCl 500 Take 1 tablet by 14 tablet 0 01/04/2019 Active mg tabletIndications: mouth 2 (two) Generalized abdominal times daily. pain, Acute diverticulitis, Acute duodenitis, Jejunitis, Renal calculi, Ureteral calculus, Ureteral colic metroNIDAZOLE 500 mg Take 1 tablet by 14 tablet 0 01/04/2019 Active tabletIndications: mouth 2 (two) Generalized abdominal times daily. pain, Acute diverticulitis, Acute duodenitis, Jejunitis, Renal calculi, Ureteral calculus, Ureteral colic ondansetron (ZOFRAN) 4 Take 1 tablet by 12 tablet 0 01/04/2019 Active mg tabletIndications: mouth every 8 Generalized abdominal (eight) hours as pain, Acute needed for diverticulitis, Acute Nausea and duodenitis, Jejunitis, Vomiting (N/V). Renal calculi, Ureteral calculus, Ureteral colic tamsulosin 0.4 mg 24 hr Take 1 capsule 14 capsule 0 01/04/2019 Active capsuleIndications: by mouth at Generalized abdominal bedtime. pain, Acute diverticulitis, Acute duodenitis, Jejunitis, Renal calculi, Ureteral calculus, Ureteral colic pantoprazole (PROTONIX) Take 1 tablet by 28 tablet 0 9 Active 40 mg EC mouth daily. tabletIndications: Generalized abdominal pain, Acute diverticulitis, Acute duodenitis, Jejunitis, Renal calculi, Ureteral calculus, Ureteral colic ketorolac 10 mg Take 1 tablet by 16 tablet 0 01/04/2019 Active tabletIndications: mouth every 6 Generalized abdominal (six) hours as pain, Acute needed for diverticulitis, Acute Alternate with duodenitis, Jejunitis, [place] for pain Renal calculi, Ureteral scale 4-6. calculus, Ureteral colic traMADOL 50 mg Take 1 tablet by 30 tablet 0 01/10/2019 Active tabletIndications: mouth every 6 Epigastric pain (six) hours as needed for Pain (scale 1-3). ondansetron (ZOFRAN Take 1 tablet by 14 tablet 0 01/10/2019 Active ODT) 4 mg mouth every 8 disintegrating (eight) hours as tabletIndications: needed for Epigastric pain Nausea and Vomiting (N/V). documented as of this encounter (statuses as of 11/25/2019) Active Problems No known active problemsdocumented as of this encounter (statuses as of 11/25/2019) Social History Tobacco Use Types Packs/Day Years Used Date Never Assessed Sex Assigned at Date Recorded Not on file Job Start Date Occupation Industry Not on file Not on file Not on file Travel History Travel Start Travel End No recent travel history available. documented as of this encounter Last Filed Vital Signs Not on filedocumented in this encounter Plan of Treatment Date Type Specialty Care Team Description 11/25/2019 Urgent Care Family Medicine Pob1, Acute Care Clinic Health Maintenance Due Date Last Done Comments DTaP,Tdap,and Td Vaccines (1 - 1989 Tdap) PAP SMEAR 1999 Breast Cancer Screening 2018 (MAMMOGRAM) INFLUENZA VACCINE (#1) 2019 PNEUMOCOCCAL 0-64 YEARS COMBINED Aged Out No longer eligible based on SERIES patient's age to complete this topic documented as of this encounter Results Not on filedocumented in this encounter Insurance Payer Benefit Plan / Subscriber ID Effective Phone Address T ype Group Dates [employer] [id number] 2011-Pres Behavioral [employer] - MANAGED BEHAVIORAL ent [facility] MEDICAID SOLUTIONS [facility] STAR xxxxxxxxx 2014-Pre M edicaid HEALTHCARE COMM PLUS sent PLAN - MANAGED MEDICAID documented as of this encounter
--- OUTSIDE RECORDS SUMMARY | 2020-01-25 07:17 | XMS REPORT | Continuity of Care Document ---
:1980 Author Organization [facility] t Address [address] [place] [address] Care Team Providers Name Role Phone Sharpless Primary Care Physician Randa SOLAR DESIGNER/INSTALLER Attending Clinician Pob1, Care Clinic Attending Clinician Unavailable ZINDANI Attending Clinician Unavailable ZINDANI Admitting Clinician Unavailable Problems Condition Condition Condition Status Onset Resolution Last Treating Co mments Source Name Details Category Date Date Treatment Clinician Date Headache [facility] [place] Seizure Seizure Disease Active [facility] disorder disorder [facility] 00 [place] Hypertensi Hypertensi Disease Active [facility] ve urgency ve urgency 2-24 Shae k[facility] - 00:00: Medical 00 [place] Allergies, Adverse Reactions, Alerts Allergy Allergy Status Severity Reaction(s) Onset Inactive Treating Comm ents Source Name Type Date Date Clinician Cefaclor Propensi Active [facility] - adverse 00:00: Medical reaction 00 [place] [facility] Sulfa Drug Active [facility] ([facility] Allergy [facility] - mide 00:00: Medical Antibiot 00 [place] ics) Ketorola Propensi Active [facility] to 2[facility]24 [facility] - adverse 00:00: Medical reaction 00 [place] Social History Social Habit Start Date Stop Date Quantity Comments Source Sex Assigned At [facility] Medications Ordered Filled Start Stop Current Ordering Indication Dosage Frequency Signature Comments Components Source Medication Medication Date Date Medication? Clinician (SIG) Name Name phenytoin Yes epilepsy [id number] Take by [facility] (DILANTIN) 2-24 [id number] mouth 3 [facility] - 100 MG ER 15:02: 3D (three) Medic al capsule 50 times Center daily. Procedures This patient has no known procedures. Encounters Start End Encounter Admission Attending Care Care Encounter Source Date/Time Date/Time Type Type Clinicians Facility Department ID 2019-11-27 2019-11-27 Telephone [facility], [facility] [id number] 00:00:00 00:00:00 [facility] [id number] [place] [id number] Professio [phone] [place] [address] [address] 2019-11-25 2019-11-25 Urgent Pob1, Acute [facility] [id number] 14:55:25 15:15:25 [facility] [id number] [place] [id number] Professio [phone] [place] [address] [address] 2019-11-25 2019-11-25 Telephone Pob1, Acute [facility] [id number] 00:00:00 00:00:00 [facility] [id number] [place] [id number] Professio [phone] [place] [address] [address] Results Test Description Test Time Test Comments Results Result Comments Source CARDIOLIPIN ANTIBODIES, IGG AND IGM 2016-10-19 11:17:00 Test Item Value Reference Range Interpretation Comme nts ANTICARDIOLIPIN IGG ANTIBODY (SolveBoard) (test code = 712) < GPL ANTICARDIOLIPIN IGM ANTIBODY (SolveBoard) (test code = 713) 0.6 MPL Anticardiolipin IgG Result Interpretation: NEG:<20 GPL; U/mlPOS:>/=20 GPL;U/mlAnticardiolipinIgM Result Interpretation: NEG:<20 MPL; U/mlPOS:>/=20 MPL;U/[id number] 19:19:00 Test Item Value Reference Range Interpretation Comments HOMOCYSTEINE (JACOB) (test code 19.1 umol/L 5.1-15.4 H = 642) HEMOGLOBIN [id number] 16:55:00 Test Item Value Reference Range Interpretation Comments HEMOGLOBIN A1C (BEAKER) (test code = 5.1 % 4.3-6.1 368) TSH/FREE T4 IF [id number] 16:00:00 Test Item Value Reference Range Interpretation Comments THYROID STIMULATING HORMONE 1.64 uIU/mL 0.35-4.94 (BEAKER) (test code = 772) VITAMIN B12 AND [id number] 16:00:00 Test Item Value Reference Range Interpretation Comments VITAMIN B12 (BEAKER) (test code = 241 pg/mL 213-816 774) FOLATE (BEAKER) (test code = 362) 3.7 ng/mL >=7.0 L Effective 07/08/2014: Folate Reference Range ChangeNew: >=7.0 Previous: >=5.4SEDIMENTATION [id number] 15:57:00 Test Item Value Reference Range Interpretation Comments SEDIMENTATION RATE, ERYTHROCYTE 8 mm/HR 0-20 (BEAKER) (test code = 766) LIPID [id number] 15:32:00 Test Item Value Reference Range Interpretation Comments TRIGLYCERIDES (BEAKER) (test code = 98 mg/dL 540) CHOLESTEROL (BEAKER) (test code = 200 mg/dL 631) HDL CHOLESTEROL (BEAKER) (test code 51 mg/dL = 976) LDL CHOLESTEROL CALCULATED (BEAKER) 129 mg/dL (test code = 633) Triglyceride Reference Range: Low Risk <150 Borderline 150-199 High Risk 200-499 Very High Risk >=500Cholesterol Reference Range: Low Risk <200 Borderline 200-239 High Risk >240HDL Cholesterol Reference Range: Low Risk >=60 High Risk <40LDL Cholesterol Reference Range: Optimal <100 Near Optimal 100-129 Borderline 130-159 High 160-189 Very High >=190C-REACTIVE [id number] 15:30:00 Test Item Value Reference Range Interpretation Comments C-REACTIVE PROTEIN (BEAKER) (test 2.96 mg/dL 0.00-0.50 H code = 676) CBC W/PLT COUNT & AUTO [id number] 15:05:00 Test Item Value Reference Range Interpretation Comments WHITE BLOOD CELL COUNT (BEAKER) 7.8 K/ L 4.0-10.0 (test code = 775) RED BLOOD CELL COUNT (BEAKER) 5.50 M/ L 4.00-5.00 H (test code = 761) HEMOGLOBIN (BEAKER) (test code = 16.4 GM/DL 12.0-15.0 H 410) HEMATOCRIT (BEAKER) (test code = 48.2 % 36.0-45.0 H 411) MEAN CORPUSCULAR VOLUME (BEAKER) 87.7 fL 82.0-99.0 (test code = 753) MEAN CORPUSCULAR HEMOGLOBIN 29.8 pg 27.0-33.0 (BEAKER) (test code = 751) MEAN CORPUSCULAR HEMOGLOBIN CONC 34.0 GM/DL 32.0-36.0 (BEAKER) (test code = 752) RED CELL DISTRIBUTION WIDTH 15.3 % 10.3-14.2 H (BEAKER) (test code = 412) PLATELET COUNT (BEAKER) (test 217 K/CU MM 150-430 code = 756) MEAN PLATELET VOLUME (BEAKER) 7.3 fL 6.5-10.5 (test code = 754) NUCLEATED RED BLOOD CELLS 0 /100 WBC 0-0 (BEAKER) (test code = 413) NEUTROPHILS RELATIVE PERCENT 67 % (BEAKER) (test code = 429) LYMPHOCYTES RELATIVE PERCENT 22 % (BEAKER) (test code = 430) MONOCYTES RELATIVE PERCENT 8 % (BEAKER) (test code = 431) EOSINOPHILS RELATIVE PERCENT 1 % (BEAKER) (test code = 432) BASOPHILS RELATIVE PERCENT 2 % (BEAKER) (test code = 437) NEUTROPHILS ABSOLUTE COUNT 5.25 K/ L 1.80-8.00 (BEAKER) (test code = 670) LYMPHOCYTES ABSOLUTE COUNT 1.68 K/ L 1.48-4.50 (BEAKER) (test code = 414) MONOCYTES ABSOLUTE COUNT (BEAKER) 0.65 K/ L 0.00-1.30 (test code = 415) EOSINOPHILS ABSOLUTE COUNT 0.09 K/ L 0.00-0.50 (BEAKER) (test code = 416) BASOPHILS ABSOLUTE COUNT (BEAKER) 0.14 K/ L 0.00-0.20 (test code = 417) [id number] 07:34:00 Test Item Value Reference Range Interpretation Comments MAGNESIUM (BEAKER) 2.0 mg/dL 1.6-2.6 Specimen slightly (test code = 627) hemolyzed BASIC METABOLIC [id number] 07:33:00 Test Item Value Reference Range Interpretation Comments SODIUM (BEAKER) 136 meq/L 136-145 (test code = 381) POTASSIUM (BEAKER) 4.1 meq/L 3.5-5.1 (test code = 379) CHLORIDE (BEAKER) 107 meq/L 98-107 (test code = 382) CO2 (BEAKER) (test 20 meq/L 22-29 L code = 355) BLOOD UREA NITROGEN 10 mg/dL 7-21 (BEAKER) (test code = 354) CREATININE (BEAKER) 0.72 mg/dL 0.57-1.25 (test code = 358) GLUCOSE RANDOM 84 mg/dL 70-105 (BEAKER) (test code = 652) CALCIUM (BEAKER) 8.3 mg/dL 8.4-10.2 L (test code = 697) EGFR (BEAKER) (test 91 mL/min/1.73 ESTIMA HAY GFR IS code = 1092) sq m NOT ACCURATE CREATININE CLEARANCE IN PREDICTING GLOMERULAR FILTRATION RATE . ESTIMATED GFR I S NOT APPLICABLE FOR DIALYSIS PATIEN TS. [id number] 07:27:00 Test Item Value Reference Range Interpretation Comments MAGNESIUM (BEAKER) (test code = 1.7 mg/dL 1.6-2.6 627) SCREEN, [id number] 13:54:00 Test Item Value Reference Range Interpretation Comments TEST URINE (BEAKER) (test Negative code = 583) [id number] 02:55:00 Test Item Value Reference Range Interpretation Comments MAGNESIUM (BEAKER) (test code = 1.8 mg/dL 1.6-2.6 627) PHENYTOIN LEVEL, [id number] 00:30:00 Test Item Value Reference Range Interpretation Comments PHENYTOIN (DILANTIN) (BEAKER) (test 7.3 ug/mL 10.0-20.0 L code = 605) HEPATIC FUNCTION [id number] 00:26:00 Test Item Value Reference Range Interpretation Comments TOTAL PROTEIN (BEAKER) (test code = 6.4 gm/dL 6.0-8.3 770) ALBUMIN (BEAKER) (test code = 1145) 3.8 g/dL 3.5-5.0 BILIRUBIN TOTAL (BEAKER) (test code 0.4 mg/dL 0.2-1.2 = 377) BILIRUBIN DIRECT (BEAKER) (test 0.2 mg/dL 0.1-0.5 code = 706) ALKALINE PHOSPHATASE (BEAKER) (test 114 U/L 40-150 code = 346) AST (SGOT) (BEAKER) (test code = 16 U/L 5-34 353) ALT (SGPT) (BEAKER) (test code = 20 U/L 6-55 347) BASIC METABOLIC [id number] 00:26:00 Test Item Value Reference Range Interpretation Comments SODIUM (BEAKER) 138 meq/L 136-145 (test code = 381) POTASSIUM (BEAKER) 4.0 meq/L 3.5-5.1 (test code = 379) CHLORIDE (BEAKER) 109 meq/L 98-107 H (test code = 382) CO2 (BEAKER) (test 21 meq/L 22-29 L code = 355) BLOOD UREA NITROGEN 7 mg/dL 7-21 (BEAKER) (test code = 354) CREATININE (BEAKER) 0.74 mg/dL 0.57-1.25 (test code = 358) GLUCOSE RANDOM 103 mg/dL 70-105 (BEAKER) (test code = 652) CALCIUM (BEAKER) 9.0 mg/dL 8.4-10.2 (test code = 697) EGFR (BEAKER) (test 88 mL/min/1.73 ESTIMA HAY GFR IS code = 1092) sq m NOT ACCURATE CREATININE CLEARANCE IN PREDICTING GLOMERULAR FILTRATION RATE . ESTIMATED GFR I S NOT APPLICABLE FOR DIALYSIS PATIEN TS. [id number] 00:26:00 Test Item Value Reference Range Interpretation Comments ALBUMIN (BEAKER) (test code = 1145) 3.8 g/dL 3.5-5.0 CBC W/PLT COUNT & AUTO [id number] 00:16:00 Test Item Value Reference Range Interpretation Comments WHITE BLOOD CELL COUNT (BEAKER) 10.1 K/ L 4.0-10.0 H (test code = 775) RED BLOOD CELL COUNT (BEAKER) 5.45 M/ L 4.00-5.00 H (test code = 761) HEMOGLOBIN (BEAKER) (test code = 15.5 GM/DL 12.0-15.0 H 410) HEMATOCRIT (BEAKER) (test code = 48.8 % 36.0-45.0 H 411) MEAN CORPUSCULAR VOLUME (BEAKER) 89.6 fL 82.0-99.0 (test code = 753) MEAN CORPUSCULAR HEMOGLOBIN 28.4 pg 27.0-33.0 (BEAKER) (test code = 751) MEAN CORPUSCULAR HEMOGLOBIN CONC 31.7 GM/DL 32.0-36.0 L (BEAKER) (test code = 752) RED CELL DISTRIBUTION WIDTH 15.5 % 10.3-14.2 H (BEAKER) (test code = 412) PLATELET COUNT (BEAKER) (test 260 K/CU MM 150-430 code = 756) MEAN PLATELET VOLUME (BEAKER) 7.7 fL 6.5-10.5 (test code = 754) NUCLEATED RED BLOOD CELLS 0 /100 WBC 0-0 (BEAKER) (test code = 413) NEUTROPHILS RELATIVE PERCENT 83 % (BEAKER) (test code = 429) LYMPHOCYTES RELATIVE PERCENT 12 % (BEAKER) (test code = 430) MONOCYTES RELATIVE PERCENT 4 % (BEAKER) (test code = 431) EOSINOPHILS RELATIVE PERCENT 0 % (BEAKER) (test code = 432) BASOPHILS RELATIVE PERCENT 0 % (BEAKER) (test code = 437) NEUTROPHILS ABSOLUTE COUNT 8.39 K/ L 1.80-8.00 H (BEAKER) (test code = 670) LYMPHOCYTES ABSOLUTE COUNT 1.24 K/ L 1.48-4.50 L (BEAKER) (test code = 414) MONOCYTES ABSOLUTE COUNT (BEAKER) 0.40 K/ L 0.00-1.30 (test code = 415) EOSINOPHILS ABSOLUTE COUNT 0.03 K/ L 0.00-0.50 (BEAKER) (test code = 416) BASOPHILS ABSOLUTE COUNT (BEAKER) 0.03 K/ L 0.00-0.20 (test code = 417) 0.00
--- OUTSIDE RECORDS SUMMARY | 2020-01-25 07:18 | XMS REPORT | Summary of Care ---
:1980 Author Organization [facility] Address [address] [place] [address] Care Team Providers Name Role Phone Jaime Mckeon Primary Care Provider Reason for Visit Reason Comments Results Encounter Details Date Type Department Care Team Description 11/27/2019 Telephone [facility] Family Medicine Maddie Acevedo FNP Results - [place] [address] [address] [facility] [address] [phone] [place] [phone] Allergies Active Allergy Reactions Severity Noted Date Comments Cefaclor Unknown - See comments 10/14/2016 Sulfa (Sulfonamide Antibiotics) Unknown - See comments 10/14/2016 Ketorolac Other - See comments 01/04/2019 Seizure Tramadol Other - See comments 01/10/2019 Seizure documented as of this encounter (statuses as of 11/27/2019) Medications Medication Sig Dispensed Refills Start Date End Date Status cyclobenzaprine 5 mg Take 1 tablet by 30 tablet 0 02/16/2017 Active tablet mouth 3 (three) times daily. ondansetron (ZOFRAN) 4 Take 1 tablet by 12 tablet 0 01/04/2019 Active mg tabletIndications: mouth every 8 Generalized abdominal (eight) hours as pain, Acute needed for diverticulitis, Acute Nausea and duodenitis, Jejunitis, Vomiting (N/V). Renal calculi, Ureteral calculus, Ureteral colic tamsulosin 0.4 mg 24 Take 1 capsule 14 capsule 0 01/04/2019 Active hr capsuleIndications: by mouth at Generalized abdominal bedtime. pain, Acute diverticulitis, Acute duodenitis, Jejunitis, Renal calculi, Ureteral calculus, Ureteral colic pantoprazole Take 1 tablet by 28 tablet 0 01/04/2019 Active (PROTONIX) 40 mg EC mouth daily. tabletIndications: Generalized abdominal pain, Acute diverticulitis, Acute duodenitis, Jejunitis, Renal calculi, Ureteral calculus, Ureteral colic ketorolac 10 mg Take 1 tablet by 16 tablet 0 01/04/2019 Active tabletIndications: mouth every 6 Generalized abdominal (six) hours as pain, Acute needed for diverticulitis, Acute Alternate with duodenitis, Jejunitis, [place] for pain Renal calculi, scale 4-6. Ureteral calculus, Ureteral colic traMADOL 50 mg Take 1 tablet by 30 tablet 0 01/10/2019 Active tabletIndications: mouth every 6 Epigastric pain (six) hours as needed for Pain (scale 1-3). ondansetron (ZOFRAN Take 1 tablet by 14 tablet 0 01/10/2019 Active ODT) 4 mg mouth every 8 disintegrating (eight) hours as tabletIndications: needed for Epigastric pain Nausea and Vomiting (N/V). phenytoin Extended 100 300 mg. 0 06/30/2018 Active mg capsule lisinopril 10 mg Take 10 mg by 0 Active tablet mouth daily. hydrOXYzine 50 mg Take 1 tablet by 60 tablet 0 11/25/20190 01/2020 Active tabletIndications: mouth 3 (three) Anxiety times daily as needed for Anxiety for up to 30 days. benzonatate (TESSALON Take 1 capsule 42 capsule 0 11/25/2019 0 12/09/2019 Active PERLES) 100 mg by mouth 3 capsuleIndications: (three) times Cough daily for 14 days. albuterol (VENTOLIN Inhale 2 Puffs 8.5 g 0 11/25/2019 05/0 01/2020 Active HFA) 90 mcg/actuation every 6 (six) inhalerIndications: hours as needed Cough for Shortness of Breath or Chest tightness for up to 30 days. amoxicillin-clavulanat Take 1 tablet by 20 tablet 0 11/25/2019 12/05/2019 Active e (AUGMENTIN) 875-125 mouth 2 (two) mg per times daily for tabletIndications: 10 days. Cough documented as of this encounter (statuses as of 11/27/2019) Active Problems Problem Noted Date Essential hypertension 11/25/2019 Anxiety 11/25/2019 documented as of this encounter (statuses as of 11/27/2019) Social History Tobacco Use Types Packs/Day Years Used Date Current Every Day Smoker Smokeless Tobacco: Never Used Sex Assigned at Date Recorded Not on file Job Start Date Occupation Industry Not on file Not on file Not on file Travel History Travel Start Travel End No recent travel history available. documented as of this encounter Last Filed Vital Signs Not on filedocumented in this encounter Plan of Treatment Health Maintenance Due Date Last Done Comments PNEUMOCOCCAL 0-64 YEARS COMBINED SERIES (1 of 1 - 1984 PPSV23) DTaP,Tdap,and Td Vaccines (1 - Tdap) 1989 PAP SMEAR 1999 Breast Cancer Screening (MAMMOGRAM) 2018 INFLUENZA VACCINE (#1) 2019 documented as of this encounter Results Not on filedocumented in this encounter Insurance Payer Benefit Plan / Subscriber ID Effective Phone Address T ype Group Dates [employer] [id number] 2011-Pres Behavioral [employer]Y - MANAGED BEHAVIORAL ent [facility] MEDICAID SOLUTIONS [facility] STAR xxxxxxxxx 2014-Pre M edicaid HEALTHCARE COMM PLUS sent PLAN - MANAGED MEDICAID documented as of this encounter
--- OUTSIDE RECORDS SUMMARY | 2020-01-25 07:18 | XMS REPORT | Summary of Care ---
:1980 Author Organization [facility] - Health Address [address] [place] [id number] Care Team Providers Name Role Phone Jaime Mckeon Primary Care Provider Reason for Visit Reason Comments Cough Shortness of Breath Congestion Other chest tightness Fever Encounter Details Date Type Department Care Team Description 11/25/2019 Urgent Care [facility] Family Sonai Tolentino FNP [facility] [address] [id number] Cough (Primary Dx); Medicine - [facility] SOB (shortness of breath); [facility]; [place], [place] Essential hyper tension [id number] Allergies Active Allergy Reactions Severity Noted Date Comments Cefaclor Unknown - See comments 10/14/2016 Sulfa (Sulfonamide Antibiotics) Unknown - See comments 10/14/2016 Ketorolac Other - See comments 01/04/2019 Seizure Tramadol Other - See comments 01/10/2019 Seizure documented as of this encounter (statuses as of 11/25/2019) Medications Medication Sig Dispensed Refills Start End Date Status Date cyclobenzaprine 5 mg Take 1 tablet 30 tablet 0 Active tablet by mouth 3 7 (three) times daily. ondansetron (ZOFRAN) Take 1 tablet 12 tablet 0 Active 4 mg by mouth 9 tabletIndications: every 8 Generalized (eight) hours abdominal pain, as needed for Acute Nausea and diverticulitis, Vomiting Acute duodenitis, (N/V). Jejunitis, Renal calculi, Ureteral calculus, Ureteral colic tamsulosin 0.4 mg 24 Take 1 14 capsule 0 Active hr capsule by 9 capsuleIndications: mouth at Generalized bedtime. abdominal pain, Acute diverticulitis, Acute duodenitis, Jejunitis, Renal calculi, Ureteral calculus, Ureteral colic pantoprazole Take 1 tablet 28 tablet 0 Act em (PROTONIX) 40 mg EC by mouth 9 tabletIndications: daily. Generalized abdominal pain, Acute diverticulitis, Acute duodenitis, Jejunitis, Renal calculi, Ureteral calculus, Ureteral colic ketorolac 10 mg Take 1 tablet 16 tablet 0 Active tabletIndications: by mouth 9 Generalized every 6 (six) abdominal pain, hours as Acute needed for diverticulitis, Alternate Acute duodenitis, with [place] Jejunitis, Renal for pain calculi, Ureteral scale 4-6. calculus, Ureteral colic traMADOL 50 mg Take 1 tablet 30 tablet 0 A ctive tabletIndications: by mouth 9 Epigastric pain every 6 (six) hours as needed for Pain (scale 1-3). ondansetron (ZOFRAN Take 1 tablet 14 tablet 0 Active ODT) 4 mg by mouth 9 disintegrating every 8 tabletIndications: (eight) hours Epigastric pain as needed for Nausea and Vomiting (N/V). phenytoin Extended 300 mg. 0 A ctive 100 mg capsule 8 lisinopril 10 mg Take 10 mg by 0 Active tablet mouth daily. hydrOXYzine 50 mg Take 1 tablet 60 tablet 0 12/25/19 Active tabletIndications: by mouth 3 0 20 Anxiety (three) times daily as needed for Anxiety for up to 30 days. benzonatate Take 1 42 capsule 0 12/09/19 Active (TESSALON PERLES) capsule by 0 20 100 mg mouth 3 capsuleIndications: (three) times Cough daily for 14 days. albuterol (VENTOLIN Inhale 2 8.5 g 0 12/25/19 Active HFA) 90 Puffs every 6 0 20 mcg/actuation (six) hours inhalerIndications: as needed for Cough Shortness of Breath or Chest tightness for up to 30 days. amoxicillin-clavulan Take 1 tablet 20 tablet 0 12/04 Active ate (AUGMENTIN) by mouth 2 0 20 875-125 mg per (two) times tabletIndications: daily for 10 Cough days. ciprofloxacin HCl Take 1 tablet 14 tablet 0 11/25/19 Discontinued 500 mg by mouth 2 9 20 (Therapy tabletIndications: (two) times completed) Generalized daily. abdominal pain, Acute diverticulitis, Acute duodenitis, Jejunitis, Renal calculi, Ureteral calculus, Ureteral colic metroNIDAZOLE 500 mg Take 1 tablet 14 tablet 0 11/24 Discontinued tabletIndications: by mouth 2 9 20 (Therapy Generalized (two) times comple greta) abdominal pain, daily. Acute diverticulitis, Acute duodenitis, Jejunitis, Renal calculi, Ureteral calculus, Ureteral colic documented as of this encounter (statuses as of 11/25/2019) Active Problems Problem Noted Date Essential hypertension [...] of this encounter Last Filed Vital Signs Vital Sign Reading Time Taken Comments Blood Pressure 166/106 11/25/2019 3:10 PM CDT Pulse 97 11/25/2019 3:07 PM CDT Temperature 36.8 C (98.3 F) 11/25/2019 3:07 PM CDT Respiratory Rate 18 11/25/2019 3:07 PM CDT Oxygen Saturation 96% 11/25/2019 3:07 PM CDT Inhaled Oxygen Concentration - - Weight 108.9 kg (240 lb) 11/25/2019 3:07 PM CDT Height - - Body Mass Index - - documented in this encounter Progress Notes Maddie Tolentino FNP - 11/25/2019 3:00 PM CDT Cc: Chief Complaint Patient presents with Cough Shortness of Breath Congestion Other chest tightness Fever Nelia Corley is a 39 year old female. Patient is an active smoker, smokes about 1-2 packs per day. 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 She is here to be tested for covid due to possible exposure with symptoms (cough, SOB and chest tightening). She also has a hx of anxiety with causes her to have chest tightening, she has not been on her medication for months due to relocation and not having a PCP yet. She reported fever but 99.2, no more than on Monday alone. Her blood pressure are elvated today, she has a hx of hypertension on 10mg on lisinopril which she said usually work but due to acute flare up of her anxiety , coupled with this acute URI, she has beenhaving elevated pressure with no associated symptoms. Cough Cough characteristics: Dry and productive Sputum characteristics: Nondescript Severity: Moderate Onset quality: Gradual Duration: 1 week Timing: Constant Progression: Worsening Chronicity: New Smoker: yes Context: upper respiratory infection Relieved by: Nothing Worsened by: Smoking Associated symptoms: fever and shortness of breath Associated symptoms: no chest pain, no chills, no myalgias and no wheezing Fever: Timing: Sporadic Max temp H[employer] DENSITY [employer]ER: 99.2 Temp source: Subjective Progression: Resolved Shortness of breath: Severity: Mild Onset quality: Gradual Timing: Intermittent Progression: Unchanged Risk factors: no recent infection Allergies Nelia is allergic to cefaclor; sulfa (sulfonamide antibiotics); toradol [ketorolac]; and tramadol. Medications Outpatient Medications Prior to Visit Medication Sig Dispense Refill lisinopril 10 mg tablet Take 10 mg by mouth daily. phenytoin Extended 100 mg capsule 300 mg. ondansetron (ZOFRAN ODT) 4 mg disintegrating tablet Take 1 tablet by mouth every 8 (eight) hoursas needed for Nausea and Vomiting (N/V). 14 tablet 0 traMADOL 50 mg tablet Take 1 tablet by mouth every 6 (six) hours as needed for Pain (scale 1-3).30 tablet 0 ketorolac 10 mg tablet Take 1 tablet by mouth every 6 (six) hours as needed for Alternate with [place] for pain scale 4-6. 16 tablet 0 metroNIDAZOLE 500 mg tablet Take 1 tablet by mouth 2 (two) times daily. 14 tablet 0 ondansetron (ZOFRAN) 4 mg tablet Take 1 tablet by mouth every 8 (eight) hours as needed for Nausea and Vomiting (N/V). 12 tablet 0 pantoprazole (PROTONIX) 40 mg EC tablet Take 1 tablet by mouth daily. 28 tablet 0 tamsulosin 0.4 mg 24 hr capsule Take 1 capsule by mouth at bedtime. 14 capsule 0 ciprofloxacin HCl 500 mg tablet Take 1 tablet by mouth 2 (two) times daily. 14 tablet 0 cyclobenzaprine 5 mg tablet Take 1 tablet by mouth 3 (three) times daily. 30 tablet 0 No facility-administered medications prior to visit. Histories Past Medical History: Diagnosis Date Anxiety Epilepsy Hypertension Kidney stones Past Surgical History: Procedure Laterality Date CHOLECYSTECTOMY RENAL STENTING Social History Socioeconomic History Marital status: Spouse name: Not on file Number of children: Not on file Years of education: Not on file Highest education level: Not on file Occupational History Not on file Social Needs Financial resource strain: Not on file Food insecurity: Worry: Not on file Inability: Not on file Transportation needs: Medical: Not on file Non-medical: Not on file Tobacco Use Smoking status: Not on file Substance and Sexual Activity Alcohol use: Not on file Drug use: Not on file Sexual activity: Not on file Lifestyle Physical activity: Days per week: Not on file Minutes per session: Not on file Stress: Not on file Relationships Social connections: Talks on phone: Not on file Gets together: Not on file Attends restorationist service: Not on file Active member of club or organization: Not on file Attends meetings of clubs or organizations: Not on file Relationship status: Not on file Intimate partner violence: Fear of current or ex partner: Not on file Emotionally abused: Not on file Physically abused: Not on file Forced sexual activity: Not on file Other Topics Concern Not on file Social History Narrative Not on file No family history on file. Review of Systems Constitutional: Positive for fever. Negative for activity change, appetite change and chills. Eyes: Negative. Respiratory: Positive for cough and shortness of breath. Negative for apnea, choking, chest tightness and wheezing. Cardiovascular: Negative. Negative for chest pain, palpitations and leg swelling. Gastrointestinal: Negative. Musculoskeletal: Negative for myalgias. Skin: Negative. Neurological: Negative. Endocrine: Endocrine negative Vital Signs BP (!) 166/106 | Pulse 97 | Temp 36.8 C (98.3 F) | Resp 18 | Wt 240 lb (108.9 kg) | SpO2 96% Physical Exam Constitutional: She is oriented to person, place, and time. She appears well- developed and well-nourished. HENT: Head: Normocephalic. Right Ear: Hearing, tympanic membrane, external ear and ear canal normal. Left Ear: Hearing, tympanic membrane, external ear and ear canal normal. Nose: Nose normal. Right sinus exhibits no maxillary sinus tenderness and no frontal sinus tenderness. Left sinus exhibits no maxillary sinus tenderness and no frontal sinus tenderness. Mouth/Throat: Uvula is midline, oropharynx is clear and moist and mucous membranes are normal. No oropharyngeal exudate, posterior oropharyngeal edema or posterior oropharyngeal erythema. No tonsillar exudate. Neck: Normal range of motion. Neck supple. Cardiovascular: Normal rate, regular rhythm, normal heart sounds and intact distal pulses. Exam reveals no gallop and no friction rub. No murmur heard. Pulmonary/Chest: Effort normal and breath sounds normal. No respiratory distress. She has no wheezes. She has no rales. She exhibits no tenderness. Abdominal: Soft. Bowel sounds are normal. She exhibits no distension. There is no tenderness. Lymphadenopathy: Head (right side): No submental, no submandibular, no tonsillar, no preauricular and no posterior auricular adenopathy present. Head (left side): No submental, no submandibular, no tonsillar, no preauricular and no posterior auricular adenopathy present. She has no cervical adenopathy. Neurological: She is alert and oriented to person, place, and time. Skin: Skin is warm and dry. Capillary refill takes less than 2 seconds. No rash noted. No erythema. No pallor. Psychiatric: She has a normal mood and affect. Nursing note and vitals reviewed. Assessment/Plan 1. Cough and SOB: tessalon and ventolin given for symptoms relief., Augmentin added due to being an active smoker. Covid screen sent off, pending result. In the meantime, quarantine in place, treat symptoms with OTC meds, Tylenol as needed but no NSAIDs.Stay in quarantine until symptoms subsides, plus 3 days afterwards or until you hear otherwise. Follow up with your PCP as needed, and if with worsening of symptoms, any respiratory distress, go to theER. 2. Hypertension: continue lisinopril, and follow up with PCP if blood pressure remain elevated >130/80s consistently. Watch blood pressure: check at least twice weekly. Low salt Low caffeine diet Low alcohol Avoid tobacco products. Heart Healthy Exercise: total of 150 minutes of cardio: walking,swimming, hiking, biking every week. Heart healthy diet: low fat/carb/sugar diet; increase lean meat-chicken, turkey, fish; increase vegetables/fruits ( still be careful because elevated sugar level) ER--> worsening condition; cp, shortness of breath, dizziness, syncope, palpitations, n/v, diaphoresis. 3. Anxiety: she is encouraged to follow up with PCP/establish with a PCP for management. In the meantime, atarax given as needed. She was provided with business card for [facility] family practice cliniciansto choose from. If with any SI, HI, go to the ER. Plan of care, desired health behaviors, goals, and medication discussed with patient. Education resources provided and reviewed with AVS. Patient/guardian/family verbalized understanding & agrees to plan of care. This visit did not involve counseling and coordination that comprised more than 50% of the visit time. If applicable, the [place] [employer] database was accessed to review any controlled substance prescription claims data. The [employer] prescription claims data in [employer] was reviewed to assess patient compliance with the medication treatment plan. documented in this encounter Plan of Treatment Name Type Priority Associated Diagnoses Order S chedule CORONAVIRUS COVID-19 LAB Routine SOB (shortness of Ex pected: 11/25/2019, TESTING breath) Expires: 11/24/2020 Cough Health Maintenance Due Date Last Done Comments DTaP,Tdap,and Td Vaccines (1 - 1989 Tdap) PAP SMEAR 1999 Breast Cancer Screening 2018 (MAMMOGRAM) INFLUENZA VACCINE (#1) 2019 PNEUMOCOCCAL 0-64 YEARS COMBINED Aged Out No longer eligible based on SERIES patient's age to complete this topic documented as of this encounter Results Not on filedocumented in this encounter Visit Diagnoses Diagnosis Cough - Primary SOB (shortness of breath) Shortness of breath Anxiety Anxiety state, unspecified Essential hypertension Unspecified essential hypertension documented in this encounter Insurance Payer Benefit Plan / Subscriber ID Effective Dates Phone Addre ss Type Group [facility] xxxxxxxxx 2014-[place] Medicaid COMM PLAN - PLUS t MANAGED MEDICAID documented as of this encounter"
[2020-01-25] MEDS ORDERED: ONDANSETRON 4 MG/2 ML VIAL ONE (07:40)
[2020-01-25] MEDS ORDERED: NA CHLORIDE 0.9% 500 ML ONE (07:40)
[2020-01-25] MEDS ORDERED: LORazepam 2 MG/ML VIAL ONE (07:40)
[2020-01-25] MEDS ORDERED: cloNIDine HCL 0.1 MG TAB ONE (07:40)
--- NOTE | 2020-01-25 08:30 | RAD REPORT ---
EXAM DESCRIPTION: CT - Head Brain Wo Cont - 01/25/2020 7:48 am CLINICAL HISTORY: fall, headache;Seizure COMPARISON: Head C Spine Mpr Wo Con dated 10/01/2019 TECHNIQUE: Axial 5 mm thick images of the head were obtained without IV contrast. All CT scans are performed using dose optimization technique as appropriate and may include automated exposure control or mA/KV adjustment according to patient size. FINDINGS: No intracranial hemorrhage, mass, edema or shift of mid-line structures. No acute infarcti on changes seen. No abnormal extra-axial fluid collections. Ventricles are normal. Mastoid air cells and visualized portions of the paranasal sinuses are clear. No acute bony findings. No changes from prior imaging. IMPRESSION: Negative non-contrast CT head examination.
--- NOTE | 2020-01-25 08:47 | RAD REPORT ---
EXAM DESCRIPTION: RAD - Chest Single View - 01/25/2020 7:42 am CLINICAL HISTORY: chest pain, seizure COMPARISON: Portable July 2019 TECHNIQUE: AP portable chest image was obtained 01/25/2020 7:42 am . FINDINGS: Lungs are underinflated but clear. Heart and vasculature are normal. No measurable pleural effusion and no pneumothorax. No acute bony abnormality seen. No acute aortic findings suspected. IMPRESSION: No acute cardiopulmonary process. No significant interval change.
[2020-01-25 08:54] LABS: Absolute Lymphocytes (CBC) 1.2 K/uL (0.7-4.9); Basophils % 0.4 % (0-1.3); Hematocrit 47.5 % (36.0-45.0); Lymphocytes % 9.6 % (15.3-44.8); MPV 8.7 fL (7.6-11.3); RBC Red Blood Cell Count 5.41 M/uL (3.86-4.86)
[2020-01-25 09:22] LABS: BUN Blood Urea Nitrogen 12 mg/dL (7-18); Bicarbonate 24 mmol/L (21-32); Glucose Level 101 mg/dL (74-106); Phenytoin (Dilantin) Level 1.6 ug/mL (10.0-20.0); Potassium 3.8 mmol/L (3.5-5.1); Sodium Level 142 mmol/L (136-145); Troponin (Emerg Dept Use Only) < 0.02 ng/mL (0.0-0.045)
[2020-01-25] MEDS ORDERED: PHENYTOIN Inj 1,000 MG in NA CHLORIDE 0.9% 100 ML IV STA (10:02)
--- NOTE | 2020-01-25 10:11 | EDPHYS ---
Physician Documentation [facility] Name: Nelia Corley Age: 39 yrs Sex: Female : 1980 Arrival Date: 01/25/2020 Time: 07:17 Bed 2 Private MD: ED Physician Chadd Harris HPI: 01/24 07:19 This 39 yrs old Female presents to ER via Unassigned with complaints of rn seizure. 07:19 The patient presents after having a single isolated seizure. Character of seizure(s): rn Circulation: the patient did not experience evidence of pulse disturbance. Seizure onset: just prior to arrival. Seizure Hx: Last seizure: The patient's last seizure "not sure". Associated injury: The patient did not suffer any apparent associated injury. Current symptoms: confusion. The patient has experienced similar episodes in the past. Reports not sure if took seizure medication last night, not sure when last seizure was, reports thinks had a seizure as she woke up on floor, reports headache and bilateral shoulder discomfort. Unwitnessed. Reports had some chest pain when woke up on floor that is improving on its own. . Historical: - Allergies: 07:27 Ceclor; ph 07:27 Sulfa (Sulfonamide Antibiotics); ph 07:27 Ultram; ph - Home Meds: 07:27 amlodipine oral [Active]; Aspirin Oral [Active]; atorvastatin Oral [Active]; Clonidine ph Oral [Active]; Folic Acid Oral [Active]; Hydralazine Oral [Active]; lisinopril Oral [Active]; Metoprolol Tartrate Oral [Active]; Phenytoin Oral [Active]; topiramate Oral [Active]; - PMHx: 07:27 ADD/ADHD; Anxiety; CVA; Hyperlipidemia; Hypertension; NSTEMI; right rotator cuff torn; ph Seizures; - PSHx: 07:27 ; Cholecystectomy; ph - Immunization history:: Adult Immunizations unknown. - Family history:: not pertinent. - Social history:: Smoking status: Patient reports the use of cigarette tobacco products, smokes one pack cigarettes per day. Patient uses street drugs, marijuana. - Hospitalizations: : No recent hospitalization is reported. ROS: 07:19 Constitutional: Negative for fever, chills, and weight loss, Eyes: Negative for injury, rn pain, redness, and discharge, Neck: Negative for injury, pain, and swelling, Cardiovascular: Negative for palpitations, and edema, Respiratory: Negative for shortness of breath, cough, wheezing, and pleuritic chest pain, Abdomen/GI: Negative for abdominal pain, nausea, vomiting, diarrhea, and constipation, Back: Negative for injury and pain, MS/Extremity: Negative for injury and deformity, Skin: Negative for injury, rash, and discoloration, Neuro: Negative for weakness, numbness, tingling Exam: 07:19 Constitutional: This is a well developed, well nourished patient who is awake, alert, rn sitting upright, crying Head/Face: Normocephalic, atraumatic. Eyes: Pupils equal round and reactive to light, extra-ocular motions intact. Lids and lashes normal. Conjunctiva and sclera are non-icteric and not injected. Cornea within normal limits. Periorbital areas with no swelling, redness, or edema. ENT: No oral trauma Neck: Trachea midline, no thyromegaly or masses palpated, and no cervical lymphadenopathy. Supple, full range of motion without nuchal rigidity, or vertebral point tenderness. No Meningismus. Cardiovascular: Regular rate and rhythm. No pulse deficits. Respiratory: No increased work of breathing, no retractions or nasal flaring. Abdomen/GI: Soft, non-tender Back: No spinal tenderness. No costovertebral tenderness. Full range of motion. Skin: Warm, dry MS/ Extremity: Pulses equal, no cyanosis. Neurovascular intact. Full, normal range of motion. Equal circumference. Neuro: Awake and alert, GCS 15, oriented to person, place, time, and situation. Cranial nerves II-XII grossly intact. Motor strength 5/5 in all extremities. Sensory grossly intact. Cerebellar exam normal. 07:30 ECG was reviewed by the Attending Physician. rn Vital Signs: 07:18 BP 163 / 129; Pulse 82; Resp 18; Temp 98.6; Pulse Ox 99% on R/A; ph 08:44 BP 159 / 109; Pulse 68; Resp 18; Pulse Ox 96% on R/A; ph 09:30 BP 164 / 101; Pulse 64; Resp 18; Pulse Ox 96% on R/A; ph 10:30 BP 152 / 104; Pulse 65; Resp 16; Pulse Ox 97% on R/A; ph 11:30 BP 143 / 100; Pulse 66; Resp 16; Temp 97.9; Pulse Ox 98% on R/A; ph MDM: 07:18 Patient medically screened. rn 10:08 Differential diagnosis: seizure. Data reviewed: vital signs, nurses notes, lab test rn result(s), EKG, radiologic studies, CT scan, plain films, and as a result, I will discharge patient. Counseling: I had a detailed discussion with the patient and/or guardian regarding: the historical points, exam findings, and any diagnostic results supporting the discharge/admit diagnosis, lab results, radiology results, the need for outpatient follow up, to return to the emergency department if symptoms worsen or persist or if there are any questions or concerns that arise at home. Special discussion: I discussed with the patient/guardian in detail that at this point there is no indication for admission to the hospital. It is understood, however, that if the symptoms persist or worsen the patient needs to return immediately for re-evaluation. Based on the history and exam findings, there is no indication for further emergent testing or inpatient evaluation. I discussed with the patient/guardian the need to see the neurologist for further evaluation of the symptoms. 10:08 ED course: Phenytoin subtherapeutic, spoke to her about need for regular medication rn regimen.. 01/24 07:19 Order name: CBC with Diff; Complete Time: 09:21 rn 01/24 07:19 Order name: Basic Metabolic Panel; Complete Time: 09:31 rn 01/24 07:19 Order name: Troponin (emerg Dept Use Only); Complete Time: 09:31 rn 01/24 07:19 Order name: Phenytoin (dilantin); Complete Time: 09:31 rn 01/24 07:19 Order name: XRAY Chest (1 view); Complete Time: 09:21 rn 01/24 07:24 Order name: CT Head Brain wo Cont; Complete Time: 09:21 rn 01/24 07:19 Order name: IV Start; Complete Time: 08:42 rn 01/24 07:19 Order name: EKG; Complete Time: 07:21 rn 01/24 07:19 Order name: EKG - Nurse/Tech; Complete Time: 07:28 rn EC:30 Rate is 81 beats/min. Rhythm is regular. QRS [place] is Normal. ID interval is normal. QRS rn interval is normal. QT interval is normal. No Q waves. T waves are Normal. No ST changes noted. Clinical impression: Normal ECG. Interpreted by me. Reviewed by me. Administered Medications: 08:42 Drug: NS 0.9% 500 ml Route: IV; Rate: bolus; Site: right hand; ph 10:00 Follow up: Response: No adverse reaction; IV Status: Completed infusion; IV Intake: ph 500ml 08:42 Drug: Ativan 1 mg Route: IVP; Site: right hand; ph 09:30 Follow up: Response: No adverse reaction ph 08:43 Drug: Zofran (Ondansetron) 4 mg Route: IVP; Site: right hand; ph 09:30 Follow up: Response: No adverse reaction; Nausea is decreased ph 10:36 Drug: Phenytoin 1 grams Route: IVPB; Site: right hand; ph 11:20 Follow up: Response: No adverse reaction; IV Status: Completed infusion ph 11:42 Not Given (Hemodynamic Parameters): cloNIDine 0.1 mg PO once ph Disposition: 01/25/20 10:09 Discharged to Home. Impression: Epilepsy and recurrent seizures, Underdosing of unspecified antiepileptic and sedative-hypnotic drugs. - Condition is Stable. - Discharge Instructions: Seizure, Adult. - Prescriptions for Zofran ODT 4 mg Oral tablet,disintegrating - place 1 tablet by TRANSLINGUAL route every 8 hours As needed; 20 tablet. - Medication Reconciliation Form, Thank You Letter, Antibiotic Education, Prescription Opioid Use form. - Follow up: Private Physician; When: As needed; Reason: Recheck today's complaints, Re-evaluation by your physician. - Problem is chronic. - Symptoms have improved. Signatures: Dispatcher [employer] EDChadd Snow MD MD rn Hall, Patricia, RN RN ph Corrections: (The following items were deleted from the chart) 11:42 10:09 01/25/2020 10:09 Discharged to Home. Impression: Epilepsy and recurrent seizures; ph Underdosing of unspecified antiepileptic and sedative-hypnotic drugs. Condition is Stable. Forms are Medication Reconciliation Form, Thank You Letter, Antibiotic Education, Prescription Opioid Use. Follow up: Private Physician; When: As needed; Reason: Recheck today's complaints, Re-evaluation by your physician. Problem is chronic. Symptoms have improved. rn
[2020-01-25] MEDS ORDERED: NA CHLORIDE 0.9% 250 ML ONE (11:01)
--- NOTE | 2020-01-25 11:43 | ER ---
Nurse's Notes [facility] Name: Nelia Corley Age: 39 yrs Sex: Female : 1980 Arrival Date: 01/25/2020 Time: 07:17 Bed 2 Private MD: Diagnosis: Epilepsy and recurrent seizures;Underdosing of unspecified antiepileptic and sedative-hypnotic drugs Presentation: 01/24 07:18 Chief complaint: EMS states: Unwitnessed seizure at home, hx of seizures, c/o chest ph tightness and pain all over, initial BP elevated at 200s/110s, 324 ASA administered, pt states that she is unsure if she took seizure meds last night. Coronavirus screen: Patient denies a cough. Patient denies shortness of breath or difficulty breathing. Patient denies measured and/or subjective temperature greater than 100.4F prior to today's visit. Patient denies travel on a cruise ship or to a country the [facility] currently lists as an affected area. Patient denies contact with known and/or suspected case of COVID-19. Ebola Screen: No symptoms or risks identified at this time. Initial Sepsis Screen: Does the patient meet any 2 criteria? No. Patient's initial sepsis screen is negative. Does the patient have a suspected source of infection? No. Patient's initial sepsis screen is negative. Risk Assessment: Do you want to hurt yourself or someone else? Patient reports no desire to harm self or others. Onset of symptoms was January 25, 2020. 07:18 Method Of Arrival: EMS: [facility] 07:18 Acuity: JENNIFER 3 ph Triage Assessment: 07:22 General: Appears in no apparent distress. uncomfortable, obese, Behavior is ph cooperative, anxious, crying. Pain: Complains of pain in 'all over", shoulders, low back, chest. Neuro: Level of Consciousness is awake, alert, obeys commands, Oriented to person, place, time, situation, Moves all extremities. Speech is normal, Facial symmetry appears normal, Pupils are PERRLA, Seizure activity reported prior to arrival. Cardiovascular: Reports chest pain, nausea, vomiting, Capillary refill < 3 seconds in bilateral fingers Patient's skin is warm and dry. Chest pain is described as mild, quality is squeezing, is located in substernal area. Respiratory: Airway is patent Respiratory effort is even, unlabored, Respiratory pattern is regular, symmetrical. GI: Abdomen is round obese, Reports nausea, Patient currently denies abdominal pain, vomiting. Derm: Skin is intact, is healthy with good turgor, Skin is pink, warm \\T\\ dry. Musculoskeletal: Circulation, motion, and sensation intact. Range of motion: intact in all extremities. Historical: - Allergies: 07:27 Ceclor; ph 07:27 Sulfa (Sulfonamide Antibiotics); ph 07:27 Ultram; ph - Home Meds: 07:27 amlodipine oral [Active]; Aspirin Oral [Active]; atorvastatin Oral [Active]; Clonidine ph Oral [Active]; Folic Acid Oral [Active]; Hydralazine Oral [Active]; lisinopril Oral [Active]; Metoprolol Tartrate Oral [Active]; Phenytoin Oral [Active]; topiramate Oral [Active]; - PMHx: 07:27 ADD/ADHD; Anxiety; CVA; Hyperlipidemia; Hypertension; NSTEMI; right rotator cuff torn; ph Seizures; - PSHx: 07:27 ; Cholecystectomy; ph - Immunization history:: Adult Immunizations unknown. - Family history:: not pertinent. - Social history:: Smoking status: Patient reports the use of cigarette tobacco products, smokes one pack cigarettes per day. Patient uses street drugs, marijuana. - Hospitalizations: : No recent hospitalization is reported. Screenin:22 Abuse screen: Denies threats or abuse. Denies injuries from another. Nutritional ph screening: No deficits noted. Tuberculosis screening: No symptoms or risk factors identified. Fall Risk Fall in past 12 months (25 points). Secondary diagnosis (15 points) seizures, IV access (20 points). Ambulatory Aid- None/Bed Rest/Nurse Assist (0 pts). Gait- Normal/Bed Rest/Wheelchair (0 pts) Mental Status- Oriented to own ability (0 pts). Total Babcock Fall Scale indicates High Risk Score (45 or more points). Fall prevention measures have been instituted. Side Rails Up X 2 Placed Close to Nursing Station Frequent Obs/Assessments Occuring As available patient and family educated on Fall Prevention Program and Strategies. Assessment: 07:24 General: SEE TRIAGE ASSESSMENT. ph 08:44 Reassessment: Patient appears in no apparent distress at this time. Patient and/or ph family updated on plan of care and expected duration. Pain level reassessed. Pt drowsy, resting quietly w/ lights off in room, awaiting CT and lab results, will continue to monitor. 09:30 Reassessment: Patient appears in no apparent distress at this time. Patient and/or ph family updated on plan of care and expected duration. Pain level reassessed. Patient is alert, oriented x 3, equal unlabored respirations, skin warm/dry/pink. Pt asleep w/ equal and unlabored respirations, awakens easily, VSS. 10:48 Reassessment: Patient appears in no apparent distress at this time. Patient and/or ph family updated on plan of care and expected duration. Pain level reassessed. Patient is alert, oriented x 3, equal unlabored respirations, skin warm/dry/pink. D/C pending completion of IV medications. Vital Signs: 07:18 BP 163 / 129; Pulse 82; Resp 18; Temp 98.6; Pulse Ox 99% on R/A; ph 08:44 BP 159 / 109; Pulse 68; Resp 18; Pulse Ox 96% on R/A; ph 09:30 BP 164 / 101; Pulse 64; Resp 18; Pulse Ox 96% on R/A; ph 10:30 BP 152 / 104; Pulse 65; Resp 16; Pulse Ox 97% on R/A; ph 11:30 BP 143 / 100; Pulse 66; Resp 16; Temp 97.9; Pulse Ox 98% on R/A; ph ED Course: 07:17 Patient arrived in ED. rn 07:18 Chadd Harris MD is Attending Physician. rn 07:18 Liliana Cervantes RN is Primary Nurse. ph 07:22 Triage completed. ph 07:24 Arm band placed on Patient placed in an exam room, on a stretcher. ph 07:27 Patient has correct armband on for positive identification. Bed in low position. Call ph light in reach. Side rails up X 1. Bed in low position. Seizure precautions initiated. Pulse ox on. NIBP on. Door closed. Noise minimized. Warm blanket given. 07:38 EKG done, by ED staff, reviewed by Chadd Harris MD. jb1 07:42 XRAY Chest (1 view) In Process Unspecified. EDMS 07:42 Missed attempt(s): 22 gauge in right antecubital area. Bleeding controlled, band aid ph applied, catheter tip intact. 07:49 CT Head Brain wo Cont In Process Unspecified. EDMS 07:49 CT completed. Patient tolerated procedure well. Patient moved back from CT. bq 08:41 Initial lab(s) drawn, by ED staff, sent to lab. Missed attempt(s): 24 gauge in left ph hand. Bleeding controlled, band aid applied, catheter tip intact. Inserted saline lock: 24 gauge in right hand, using aseptic technique. Blood collected. 08:44 No provider procedures requiring assistance completed. ph 11:41 IV discontinued, intact, bleeding controlled, No redness/swelling at site. Pressure ph dressing applied. Administered Medications: 08:42 Drug: NS 0.9% 500 ml Route: IV; Rate: bolus; Site: right hand; ph 10:00 Follow up: Response: No adverse reaction; IV Status: Completed infusion; IV Intake: ph 500ml 08:42 Drug: Ativan 1 mg Route: IVP; Site: right hand; ph 09:30 Follow up: Response: No adverse reaction ph 08:43 Drug: Zofran (Ondansetron) 4 mg Route: IVP; Site: right hand; ph 09:30 Follow up: Response: No adverse reaction; Nausea is decreased ph 10:36 Drug: Phenytoin 1 grams Route: IVPB; Site: right hand; ph 11:20 Follow up: Response: No adverse reaction; IV Status: Completed infusion ph 11:42 Not Given (Hemodynamic Parameters): cloNIDine 0.1 mg PO once ph Intake: 10:00 IV: 500ml; Total: 500ml. ph Outcome: 10:09 Discharge ordered by . rn 11:41 Discharged to home via wheelchair, with significant other. ph 11:41 Condition: improved 11:41 Discharge instructions given to patient, Instructed on discharge instructions, follow up and referral plans. medication usage, Demonstrated understanding of instructions, follow-up care, medications, Prescriptions given X 2. 11:42 Patient left the ED. ph Signatures: Dispatcher [employer] EDMS Orlando Brandt Betty bq Chadd Harris MD MD rn Hall, Patricia, RN RN ph
[2020-01-25 12:09] VITALS: TEMP 98.6
[2020-01-25 12:11] VITALS: BP 159/109; O2SAT 96
--- NOTE | 2020-01-27 07:49 | EKG ---
Test Date: 2020-01-25 Test Time: 07:27:08 Integrated Circuit Design Engineer: JASMIN MEASUREMENT RESULTS: Intervals: Rate: 81 SD: 150 QRSD: 84 QT: 388 QTc: 450 [place]: P: 50 SD: 150 QRS: 42 T: 59 INTERPRETIVE STATEMENTS: Normal sinus rhythm with sinus arrhythmia Normal ECG Compared to ECG 11/18/2019 08:19:37 No significant changes Electronically Signed On 01-27-20 07:45:05 CDT by Diaz Almanzar
== END 2020-01-25 11:42 | disposition home or self-care (01) ==
LOC: ER 07:13
DX: G40.802 Other epilepsy, not intractable, without status epilepticus (principal); T42.76XA Underdosing of unspecified antiepileptic and sedative-hypnotic drugs, initial encounter; Z91.138 Patient's unintentional underdosing of medication regimen for other reason; I10 Essential (primary) hypertension; F41.9 Anxiety disorder, unspecified; E78.5 Hyperlipidemia, unspecified; Z79.82 Long term (current) use of aspirin; Z88.1 Allergy status to other antibiotic agents; Z88.2 Allergy status to sulfonamides; Z88.8 Allergy status to other drugs, medicaments and biological substances
CPT/HCPCS: 96365; 96361; 93005; 85025; 80048; 36415; 80185; 84484; 70450; 71045; 96375; 99285; J1165; J7030; J7040; J2405

== ENCOUNTER 2020-02-17 09:04 | Emergency (ER) | payer OTHER ==
[2020-02-17] MEDS ORDERED: NA CHLORIDE 0.9% 1,000 ML ONE (09:49)
[2020-02-17] MEDS ORDERED: ONDANSETRON 4 MG/2 ML VIAL ONE (09:49)
[2020-02-17] MEDS ORDERED: LORazepam 2 MG/ML VIAL ONE (09:49)
[2020-02-17 10:29] LABS: Absolute Lymphocytes (CBC) 1.2 K/uL (0.7-4.9); Basophils % 0.3 % (0-1.3); Lymphocytes % 8.5 % (15.3-44.8); MPV 8.9 fL (7.6-11.3)
[2020-02-17 10:43] LABS: Protime INR 0.87
[2020-02-17 10:59] LABS: ALT/SGPT 26 U/L (12-78); AST/SGOT 18 U/L (15-37); Albumin 3.5 g/dL (3.4-5.0); Alkaline Phosphatase 114 U/L (45-117); BUN Blood Urea Nitrogen 9 mg/dL (7-18); Bicarbonate 26 mmol/L (21-32); Bilirubin Direct 0.2 mg/dL (0-0.2); Bilirubin Total 0.7 mg/dL (0.2-1.0); Glucose Level 101 mg/dL (74-106); Potassium 3.8 mmol/L (3.5-5.1); Protein, Total 7.1 g/dL (6.4-8.2); Sodium Level 139 mmol/L (136-145)
--- NOTE | 2020-02-17 11:03 | RAD REPORT ---
EXAM DESCRIPTION: CT - CTHCSPWOC - 02/17/2020 10:34 am CLINICAL HISTORY: Trauma, head and neck injury. head injury, seizure, neck pain COMPARISON: Head C Spine Mpr Wo Con dated 10/01/2019; Head C Spine Mpr Wo Con dated 08/19/2019; Head C Spine Mpr Wo Con dated 02/10/2018; Head C Spine Mpr Wo Con dated 03/13/2017 TECHNIQUE: Axial 5 mm thick images of the head were obtained. Axial 2 mm thick images of the cervical spine were obtained with sagittal and coronal reconstruction images generated and reviewed. All CT scans are performed using dose optimization technique as appropriate and may include automated exposure control or mA/KV adjustment according to patient size. FINDINGS: CT HEAD WITHOUT CONTRAST: No acute hemorrhage, hydrocephalus or extra-axial collection is identified.No areas of brain edema or midline shift. The paranasal sinuses and mastoids are clear.The calvarium is intact. CT CERVICAL SPINE WITHOUT CONTRAST: No fracture or subluxation.Moderate lower cervical degenerative change with disc thinning and posteri or osteophyte formation.No prevertebral soft tissues swelling is identified. IMPRESSION: No acute intracranial or cervical spine findings. Moderate lower cervical degenerative change.
[2020-02-17 11:30] LABS: Phenytoin (Dilantin) Level 0.6 ug/mL (10.0-20.0)
[2020-02-17] MEDS ORDERED: MORPHINE 4 MG/ML SYR ONE (11:54)
[2020-02-17] MEDS ORDERED: PHENYTOIN Inj 1,000 MG in NA CHLORIDE 0.9% 100 ML IV STA (12:05)
--- OUTSIDE RECORDS SUMMARY | 2020-02-17 12:53 | XMS REPORT | Clinical Summary ---
:1980 Author Organization [facility] [employer] [facility] Address [address] [place] [address] Care Team Providers Name Role Phone Louie [...] Not on file Results Not on fileafter 02/16/2019 Insurance Payer Benefit Plan / Subscriber ID Type Phone Address Group MEDICAID - MEDICAID [facility] COMM STAR xxxxxxxxx Medicaid Contracted MGD CARE PLAN Advance Directives For more information, please contact:[facility] [address] [place], [place] [phone] Code Status Date Activated Date Inactivated Comments Full Code 10/14/2016 3:43 PM 10/18/2016 2:41 AM This code status was determined by: Patient
--- OUTSIDE RECORDS SUMMARY | 2020-02-17 12:54 | XMS REPORT | Continuity of Care Document ---
:1980 Author Organization [facility] t Address [address] [place] [address] Care Team Providers Name Role Phone Sharpless Primary Care Physician Randa MANAGER CANCER Attending Clinician Pob[facility], [facility] Attending Clinician Unavailable SLAVANDADILSON Attending Clinician Unavailable SLAVANDADILSON Admitting Clinician Unavailable Problems Condition Condition Condition Status Onset Resolution Last Treating Co mments Source Name Details Category Date Date Treatment Clinician Date Headache [facility] 00 [place] Seizure Seizure Disease Active [facility] disorder disorder [facility] 00 [place] Hypertensi Hypertensi Disease Active [facility] ve urgency ve urgency 2-24 Shae kes - 00:00: Medical 00 [place] Allergies, Adverse Reactions, Alerts Allergy Allergy Status Severity Reaction(s) Onset Inactive Treating Comm ents Source Name Type Date Date Clinician Cefaclor Propensi Active [facility] to [facility] - adverse 00:00: Medical reaction 00 [place] s Sulfa Drug Active [facility] (Sulfona Allergy 2-24 [facility] - mide 00:00: Medical Antibiot 00 [place] ics) Ketorola Propensi Active [facility] ty to 2-24 [facility] - adverse 00:00: Medical reaction 00 [place] Social History Social Habit Start Date Stop Date Quantity Comments Source Sex Assigned At [facility] Medications Ordered Filled Start Stop Current Ordering Indication Dosage Frequency Signature Comments Components Source Medication Medication Date Date Medication? Clinician (SIG) Name Name phenytoin 2017-0 Yes epilepsy [id number] Take by [facility] (DILANTIN) 2-24 [id number] mouth 3 [facility] - 100 MG ER 15:02: 3D (three) Medic al capsule 50 times Center daily. Procedures This patient has no known procedures. Encounters Start End Encounter Admission Attending Care Care Encounter Source Date/Time Date/Time Type Type Clinicians Facility Department ID 2019-11-27 2019-11-27 Telephone Anene, [facility] [id number] 00:00:00 00:00:00 [facility] [id number] [employer] [id number] Professio [phone] [place] [address] [address] 2019-11-25 2019-11-25 Urgent Pob1, Acute [facility] [id number] 14:55:25 15:15:25 [facility] [id number] [employer] [id number] Professio [phone] [place] [address] [address] 2019-11-25 2019-11-25 Telephone Pob1, Acute [facility] [id number] 00:00:00 00:00:00 [facility] [id number] [employer] [id number] Professio [phone] [place] [address] [address] Results Test Description Test Time Test Comments Results Result Comments Source CARDIOLIPIN ANTIBODIES, IGG AND IGM 2016-10-19 11:17:00 Test Item Value Reference Range Interpretation Comme nts ANTICARDIOLIPIN IGG ANTIBODY (JACOB) (test code = 712) < GPL ANTICARDIOLIPIN IGM ANTIBODY (JACOB) (test code = 713) 0.6 MPL Anticardiolipin IgG Result Interpretation: NEG:<20 GPL; U/mlPOS:>/=20 GPL;U/mlAnticardiolipinIgM Result Interpretation: NEG:<20 MPL; U/mlPOS:>/=20 MPL;U/[id number] 19:19:00 Test Item Value Reference Range Interpretation Comments HOMOCYSTEINE (JACOB) (test code 19.1 umol/L 5.1-15.4 H = 642) HEMOGLOBIN [id number] 16:55:00 Test Item Value Reference Range Interpretation Comments HEMOGLOBIN A1C (BEAKER) (test code = 5.1 % 4.3-6.1 368) TSH/FREE T4 IF [id number] 16:00:00 Test Item Value Reference Range Interpretation Comments THYROID STIMULATING HORMONE 1.64 uIU/mL 0.35-4.94 (BEAKER) (test code = 772) VITAMIN B12 AND [id number] 16:00:00 Test Item Value Reference Range Interpretation Comments VITAMIN B12 (BEAKER) (test code = 241 pg/mL 213-816 774) FOLATE (BEAKER) (test code = 362) 3.7 ng/mL >=7.0 L Effective 07/08/2014: Folate Reference Range ChangeNew: >=7.0 Previous: >=5.4SEDIMENTATION [id number] 15:57:00 Test Item Value Reference Range Interpretation Comments SEDIMENTATION RATE, ERYTHROCYTE 8 mm/HR 0-20 (BEAKER) (test code = 766) LIPID [id number] 15:32:00 Test Item Value Reference Range Interpretation [...] Borderline 130-159 High 160-189 Very High >=190C-REACTIVE [id number] 15:30:00 Test Item Value Reference Range Interpretation Comments C-REACTIVE PROTEIN (BEAKER) (test 2.96 mg/dL 0.00-0.50 H code = 676) CBC W/PLT COUNT & AUTO [id number] 15:05:00 Test Item Value Reference Range Interpretation [...] K/ L 0.00-0.20 (test code = 417) [id number] 07:34:00 Test Item Value Reference Range Interpretation Comments MAGNESIUM (BEAKER) 2.0 mg/dL 1.6-2.6 Specimen slightly (test code = 627) hemolyzed BASIC METABOLIC [id number] 07:33:00 Test Item Value Reference Range Interpretation [...] S NOT APPLICABLE FOR DIALYSIS PATIEN TS. [id number] 07:27:00 Test Item Value Reference Range Interpretation Comments MAGNESIUM (BEAKER) (test code = 1.7 mg/dL 1.6-2.6 627) SCREEN, [id number] 13:54:00 Test Item Value Reference Range Interpretation Comments TEST URINE (BEAKER) (test Negative code = 583) [id number] 02:55:00 Test Item Value Reference Range Interpretation Comments MAGNESIUM (BEAKER) (test code = 1.8 mg/dL 1.6-2.6 627) PHENYTOIN LEVEL, [id number] 00:30:00 Test Item Value Reference Range Interpretation Comments PHENYTOIN (DILANTIN) (BEAKER) (test 7.3 ug/mL 10.0-20.0 L code = 605) HEPATIC FUNCTION [id number] 00:26:00 Test Item Value Reference Range Interpretation [...] = 20 U/L 6-55 347) BASIC METABOLIC [id number] 00:26:00 Test Item Value Reference Range Interpretation [...] S NOT APPLICABLE FOR DIALYSIS PATIEN TS. [id number] 00:26:00 Test Item Value Reference Range Interpretation Comments ALBUMIN (BEAKER) (test code = 1145) 3.8 g/dL 3.5-5.0 CBC W/PLT COUNT & AUTO [id number] 00:16:00 Test Item Value Reference Range Interpretation [...]
[2020-02-17 13:15] LABS: Urine Blood NEGATIVE (NEG); Urine Glucose NEGATIVE (NEG); Urine Protein TRACE (NEG); Urine Specific Gravity 1.025 (1.005-1.030); Urine pH 6.5 (5.0-7.0)
[2020-02-17 13:16] LABS: Barbiturates NEGATIVE (NEGATIVE); Benzodiazepines NEGATIVE (NEGATIVE); Cocaine NEGATIVE (NEGATIVE); METHAMPHETAM NEGATIVE (NEGATIVE); Methadone NEGATIVE (NEGATIVE); Opiates NEGATIVE (NEGATIVE); Phencyclidine NEGATIVE (NEGATIVE); THC Cannibis POSITIVE (NEGATIVE)
--- NOTE | 2020-02-17 14:34 | ER ---
Nurse's Notes [facility] Name: Nelia Corley Age: 39 yrs Sex: Female : 1980 Arrival Date: 02/17/2020 Time: 09:06 Bed 7 Private MD: Diagnosis: Epilepsy and recurrent seizures Presentation: 02/16 09:07 Chief complaint: EMS states: SZ ACTIVITY AT HOME. Coronavirus screen: Proceed with bp normal triage. Ebola Screen: No symptoms or risks identified at this time. Initial Sepsis Screen: Does the patient meet any 2 criteria? No. Patient's initial sepsis screen is negative. Does the patient have a suspected source of infection? No. Patient's initial sepsis screen is negative. Risk Assessment: Do you want to hurt yourself or someone else? Patient reports no desire to harm self or others. Onset of symptoms is unknown. 09:07 Method Of Arrival: EMS: [facility] bp 09:07 Acuity: JENNIFER 3 bp Triage Assessment: 09:10 General: Appears in no apparent distress. comfortable, obese, Behavior is cooperative, bp appropriate for age, anxious. Pain: Denies pain. EENT: No deficits noted. Neuro: Level of Consciousness is awake, alert, obeys commands, Oriented to person, place, time, situation, Appropriate for age. Cardiovascular: No deficits noted. Respiratory: No deficits noted. GI: No signs and/or symptoms were reported involving the gastrointestinal system. : No signs and/or symptoms were reported regarding the genitourinary system. Derm: No deficits noted. Musculoskeletal: No deficits noted. Historical: - Allergies: 09:10 Ceclor; bp 09:10 Sulfa (Sulfonamide Antibiotics); bp 09:10 Ultram; bp - Home Meds: 09:10 topiramate Oral [Active]; Phenytoin Oral [Active]; Metoprolol Tartrate Oral [Active]; bp lisinopril Oral [Active]; Hydralazine Oral [Active]; Folic Acid Oral [Active]; Clonidine Oral [Active]; atorvastatin Oral [Active]; Aspirin Oral [Active]; amlodipine oral [Active]; - PMHx: 09:10 ADD/ADHD; Anxiety; CVA; Hyperlipidemia; Hypertension; NSTEMI; right rotator cuff torn; bp Seizures; - Immunization history:: Adult Immunizations up to date. - Social history:: Smoking status: Patient reports the use of cigarette tobacco products, unknown amount. Screenin:10 Abuse screen: Denies threats or abuse. Denies injuries from another. Nutritional bp screening: No deficits noted. Tuberculosis screening: No symptoms or risk factors identified. Fall Risk None identified. Assessment: 09:10 General: SEE TRIAGE NOTE. PT SEEN FREQUENTLY FOR SZ ACTIVITY, CONSISTENTLY bp NON-COMPLIANT WITH HOME MEDS. 10:00 Reassessment: PT REFUSING CT UNTIL MEDICATED FOR ANXIETY. bp 10:25 Reassessment: EJ PLACED AND PT MEDICATED. CT CONTACTED FOR SCAN. bp 11:53 Reassessment: SZ MEDICATION REQUESTED FROM PHARMACY. NO S/S SZ ACTIVITY AT THIS TIME, bp AO4. 12:21 Reassessment: Patient appears in no apparent distress at this time. pt sleeping, iw awakens easily to verbal stimuli, states she cannot use the bathroom at this time. 12:54 Reassessment: PT AMBULATED TO BATHROOM WITH STEADY GAIT. UOP PROVIDED AND IN PROCESS. bp 13:38 Reassessment: ALL CURRENT ORDERS COMPLETED, NO CHANGE IN NEURO STATUS, NO S/S SZ bp ACTIVITY. 15:19 Reassessment: PT D/C HOME AMBULATORY, DX WITH RECURRENT SEIZURES. bp Vital Signs: 09:07 BP 164 / 102; Pulse 85; Resp 22; Temp 98.2; Pulse Ox 95% ; bp 10:27 BP 155 / 94; Pulse 73; Resp 17; Pulse Ox 95% ; bp 11:30 BP 190 / 114; Pulse 72; Resp 20; Pulse Ox 97% ; bp 12:20 BP 162 / 103; Pulse 63; Resp 16 S; Pulse Ox 97% on R/A; iw 13:38 BP 154 / 104; Pulse 78; Resp 21; Pulse Ox 95% ; bp 15:03 BP 155 / 93; Pulse 75; Resp 16; Temp 98.2; Pulse Ox 97% ; bp Rhoda Coma Score: 09:10 Eye Response: spontaneous(4). Verbal Response: oriented(5). Motor Response: obeys bp commands(6). Total: 15. ED Course: 09:06 Patient arrived in ED. bp 09:07 Herve Abraham PA is PHCP. [facility] 09:07 Cj Mckeon MD is Attending Physician. [facility] 09:08 Triage completed. bp 09:10 Arm band placed on. bp 09:10 Patient has correct armband on for positive identification. Bed in low position. Call bp light in reach. Side rails up X2. Seizure precautions initiated. 09:13 Fabian Rudd, LELO is Primary Nurse. bp 09:58 EKG done, by ED staff, reviewed by Herve TRINIDAD. 3 10:00 Missed attempt(s): 24 gauge in right hand. Bleeding controlled, band aid applied, 3 catheter tip intact. 10:25 Inserted saline lock: 18 gauge in right EJ, using aseptic technique. Blood collected. bp 10:28 CT Head C Spine Sent. bp 10:33 CT Head C Spine In Process Unspecified. EDMS 15:17 No provider procedures requiring assistance completed. IV discontinued, intact, bp bleeding controlled, No redness/swelling at site. Pressure dressing applied. Administered Medications: 10:27 Drug: Ativan 1 mg Route: IVP; Site: right jugular; bp 11:52 Follow up: Response: Anxiety decreased bp 10:28 Drug: NS 0.9% 1000 ml Route: IV; Rate: 1 bolus; Site: right jugular; bp 11:52 Follow up: IV Status: Completed infusion; IV Intake: 1000ml bp 10:28 Drug: Zofran (Ondansetron) 4 mg Route: IVP; Site: right jugular; bp 11:52 Follow up: Response: Nausea is decreased bp 11:40 Drug: morphine 2 mg Route: IVP; Site: right jugular; bp 11:50 Drug: morphine 2 mg Route: IVP; Site: right jugular; bp 11:51 Follow up: Response: No adverse reaction; Pain is decreased bp 12:20 Drug: Phenytoin 1 grams Route: IVPB; Site: right jugular; iw Intake: 11:52 IV: 1000ml; Total: 1000ml. bp Outcome: 14:34 Discharge ordered by MD. tucker 15:16 Patient left the ED. iw 15:18 Discharged to home ambulatory. bp 15:18 Condition: stable 15:18 Discharge instructions given to patient, Instructed on discharge instructions, follow up and referral plans. medication usage, Demonstrated understanding of instructions, follow-up care, medications, Prescriptions given X 2. Signatures: Dispatcher [employer] EDMS Herve Abraham PA PA jmm Williams, Irene, RN RN iw Herrera, Deanna [employer] Fabian Rudd, RN RN bp Corrections: (The following items were deleted from the chart) :12 09:10 General: SEE TRIAGE NOTE. bp bp
--- NOTE | 2020-02-17 14:35 | EDPHYS ---
Physician Documentation [facility] Name: Nelia Corley Age: 39 yrs Sex: Female : 1980 Arrival Date: 02/17/2020 Time: 09:06 Bed 7 Private MD: Cj Callahan HPI: 02/16 09:35 This 39 yrs old Female presents to ER via EMS with complaints of Probable jmm Seizure. 09:35 The patient presents after having a single isolated seizure. Character of seizure(s): jmm Loss of consciousness: the patient experienced loss of consciousness, Motor activity: generalized. Seizure onset: today. Context: occurred at home. Seizure Hx: Seizure medications: phenytoin. Associated injury: Neck:. The patient has experienced similar episodes in the past, several times. Historical: - Allergies: 09:10 Ceclor; bp 09:10 Sulfa (Sulfonamide Antibiotics); bp 09:10 Ultram; bp - Home Meds: 09:10 topiramate Oral [Active]; Phenytoin Oral [Active]; Metoprolol Tartrate Oral [Active]; bp lisinopril Oral [Active]; Hydralazine Oral [Active]; Folic Acid Oral [Active]; Clonidine Oral [Active]; atorvastatin Oral [Active]; Aspirin Oral [Active]; amlodipine oral [Active]; - PMHx: 09:10 ADD/ADHD; Anxiety; CVA; Hyperlipidemia; Hypertension; NSTEMI; right rotator cuff torn; bp Seizures; - Immunization history:: Adult Immunizations up to date. - Social history:: Smoking status: Patient reports the use of cigarette tobacco products, unknown amount. ROS: 09:35 Constitutional: Negative for fever, chills, and weight loss, Cardiovascular: Negative jmm for chest pain, palpitations, and edema, Respiratory: Negative for shortness of breath, cough, wheezing, and pleuritic chest pain. 09:35 Neck: Positive for pain with movement, pain at rest. 09:35 Neuro: Positive for seizure activity. 09:35 All other systems are negative. Exam: 09:35 Constitutional: This is a well developed, well nourished patient who is awake, alert, jmm and in no acute distress. Head/Face: atraumatic. Eyes: EOMI, no conjunctival erythema appreciated ENT: Moist Mucus Membranes Neck: Trachea midline, Supple Chest/axilla: Normal chest wall appearance and motion. Cardiovascular: Regular rate and rhythm. No edema appreciated Respiratory: Normal respirations, no respiratory distress appreciated Abdomen/GI: Non distended, soft Back: Normal ROM Skin: General appearance color normal MS/ Extremity: Moves all extremities, no obvious deformities appreciated, no edema noted to the lower extremities Neuro: Awake and alert, normal gait Psych: Behavior is normal, Mood is normal, Patient is cooperative and pleasant Vital Signs: 09:07 BP 164 / 102; Pulse 85; Resp 22; Temp 98.2; Pulse Ox 95% ; bp 10:27 BP 155 / 94; Pulse 73; Resp 17; Pulse Ox 95% ; bp 11:30 BP 190 / 114; Pulse 72; Resp 20; Pulse Ox 97% ; bp 12:20 BP 162 / 103; Pulse 63; Resp 16 S; Pulse Ox 97% on R/A; iw 13:38 BP 154 / 104; Pulse 78; Resp 21; Pulse Ox 95% ; bp 15:03 BP 155 / 93; Pulse 75; Resp 16; Temp 98.2; Pulse Ox 97% ; bp Rhoda Coma Score: 09:10 Eye Response: spontaneous(4). Verbal Response: oriented(5). Motor Response: obeys bp commands(6). Total: 15. MDM: 09:14 Patient medically screened. isaak 14:33 Data reviewed: vital signs, nurses notes. Counseling: I had a detailed discussion with caitlin the patient and/or guardian regarding: the historical points, exam findings, and any diagnostic results supporting the discharge/admit diagnosis, lab results, radiology results, the need for outpatient follow up, to return to the emergency department if symptoms worsen or persist or if there are any questions or concerns that arise at home. ED course: Patient is alert and non toxic in appearance in the ED. Patient will be following up with manager social for PCP setup. Patient is otherwise given strict return precautions. Patient understood and agrees with the plan of care. . 02/16 09:09 Order name: Acetaminophen [facility] 02/16 09:09 Order name: Basic Metabolic Panel; Complete Time: 11:35 [facility] 02/16 09:09 Order name: CBC with Diff; Complete Time: 10:31 [facility] 02/16 09:09 Order name: ETOH Level; Complete Time: 10:46 [facility] 02/16 09:09 Order name: Hepatic Function; Complete Time: 11:35 [facility] 02/16 09:09 Order name: PT-INR; Complete Time: 10:46 [facility] 02/16 09:09 Order name: Ptt, Activated; Complete Time: 10:46 [facility] 02/16 09:09 Order name: Salicylate; Complete Time: 11:35 [facility] 02/16 09:09 Order name: Urine Drug Screen; Complete Time: 13:30 [facility] 02/16 09:09 Order name: Dilantin; Complete Time: 11:35 [facility] 02/16 09:10 Order name: Acetaminophen Level; Complete Time: 11:35 [facility] 02/16 09:26 Order name: Troponin (emerg Dept Use Only); Complete Time: 10:52 [facility] 02/16 13:12 Order name: Urine Dipstick--Ancillary (enter results); Complete Time: 13:16 02/16 13:12 Order name: Urine --Ancillary (enter results); Complete Time: 13:16 02/16 09:09 Order name: EKG; Complete Time: 09:11 02/16 09:09 Order name: EKG - Nurse/Tech; Complete Time: 09:46 [facility] 02/16 09:09 Order name: IV Saline Lock; Complete Time: 10:28 [facility] 02/16 09:09 Order name: Labs collected and sent; Complete Time: 10:28 [facility] 02/16 09:09 Order name: Urine Dipstick-Ancillary (obtain specimen); Complete Time: 12:54 [facility] 02/16 09:21 Order name: CT Head C Spine; Complete Time: 11:13 [facility] Administered Medications: 10:27 Drug: Ativan 1 mg Route: IVP; Site: right jugular; bp 11:52 Follow up: Response: Anxiety decreased bp 10:28 Drug: NS 0.9% 1000 ml Route: IV; Rate: 1 bolus; Site: right jugular; bp 11:52 Follow up: IV Status: Completed infusion; IV Intake: 1000ml bp 10:28 Drug: Zofran (Ondansetron) 4 mg Route: IVP; Site: right jugular; bp 11:52 Follow up: Response: Nausea is decreased bp 11:40 Drug: morphine 2 mg Route: IVP; Site: right jugular; bp 11:50 Drug: morphine 2 mg Route: IVP; Site: right jugular; bp 11:51 Follow up: Response: No adverse reaction; Pain is decreased bp 12:20 Drug: Phenytoin 1 grams Route: IVPB; Site: right jugular; iw Disposition: 16:15 Co-signature as Attending Physician, Cj Mckeon MD I agree with the assessment and isaak plan of care. Disposition: 02/17/20 14:34 Discharged to Home. Impression: Epilepsy and recurrent seizures. - Condition is Stable. - Discharge Instructions: Seizure, Adult. - Prescriptions for Zofran ODT 4 mg Oral tablet,disintegrating - place 1 tablet by TRANSLINGUAL route every 4-6 hours; 20 tablet. Dilantin Kapseal 100 mg Oral Capsule - take 1 capsule by ORAL route every 8 hours; 30 capsule. Diastat - take 1 suppository by RECTAL route once daily; 1 suppository. - Medication Reconciliation Form, Thank You Letter, Antibiotic Education, Prescription Opioid Use form. - Follow up: Private Physician; When: 2 - 3 days; Reason: Recheck today's complaints, Continuance of care, Re-evaluation by your physician. Signatures: Dispatcher [employer] EDDE Cj Mckeon MD MD cha Mickail, Joel, PA PA Sofi Cummins, LELO RN Fabian Lopez RN RN bp Corrections: (The following items were deleted from the chart) 15:16 14:34 02/17/2020 14:34 Discharged to Home. Impression: Epilepsy and recurrent seizures. iw Condition is Stable. Forms are Medication Reconciliation Form, Thank You Letter, Antibiotic Education, Prescription Opioid Use. Follow up: Private Physician; When: 2 - 3 days; Reason: Recheck today's complaints, Continuance of care, Re-evaluation by your physician. caitlin
[2020-02-17 15:41] VITALS: TEMP 98.2
[2020-02-17 15:48] VITALS: BP 155/93; O2SAT 97
== END 2020-02-17 15:16 | disposition home or self-care (01) ==
LOC: ER 09:04
DX: G40.802 Other epilepsy, not intractable, without status epilepticus (principal); M54.2 Cervicalgia; F17.210 Nicotine dependence, cigarettes, uncomplicated; I10 Essential (primary) hypertension; E78.5 Hyperlipidemia, unspecified; F41.9 Anxiety disorder, unspecified; Z88.1 Allergy status to other antibiotic agents; Z88.2 Allergy status to sulfonamides; Z88.8 Allergy status to other drugs, medicaments and biological substances
CPT/HCPCS: 93005; 85025; 80048; 36415; 80320; 80329 ×2; 81025; 85610; 80076; 80307 ×8; 85730; 80185; 81003; 84484; 70450; 72125; J1165; J7030; J2405; 96361; 96374; 96375; 99284

== ENCOUNTER 2020-02-28 14:10 | Emergency (ER) | payer OTHER ==
--- OUTSIDE RECORDS SUMMARY | 2020-02-28 14:13 | XMS REPORT | Clinical Summary ---
:1980 Author Organization [facility] [email or web address] [facility] Address [address] [place] [address] Care Team Providers Name Role Phone Louie [...] Not on file Results Not on fileafter 02/27/2019 Insurance Payer Benefit Plan / Subscriber ID Type Phone Address Group MEDICAID - MEDICAID [facility] xxxxxxxxx Medicaid Contracted MGD CARE PLAN Advance Directives For more information, please contact:[facility] Medical [id number] [place], [place] [phone] Code Status Date Activated Date Inactivated Comments Full Code 10/14/2016 3:43 PM 10/18/2016 2:41 AM This code status was determined by: Patient
--- OUTSIDE RECORDS SUMMARY | 2020-02-28 14:14 | XMS REPORT | Continuity of Care Document ---
:1980 Author Organization [facility] t Address [address] [place] [address] Care Team Providers Name Role Phone Sharpless Primary Care Physician Randa LARGE SHEETFED PRESS OPERATOR Attending Clinician Pob1, Care Clinic Attending Clinician Unavailable SLAVANDANI Attending Clinician Unavailable ZINDANI Admitting Clinician Unavailable Problems Condition Condition Condition Status Onset Resolution Last Treating Co mments Source Name Details Category Date Date Treatment Clinician Date Headache [facility] Frederica Seizure Seizure Disease Active [facility] disorder disorder [facility]: [facility] 00 Frederica Hypertensi Hypertensi Disease Active [facility] ve urgency ve urgency 2-24 Shae k[facility] - 00:00: Medical 00 Frederica Allergies, Adverse Reactions, Alerts Allergy Allergy Status Severity Reaction(s) Onset Inactive Treating Comm ents Source Name Type Date Date Clinician Cefaclor Propensi Active [facility] to [facility] - adverse 00:00: Medical reaction 00 Frederica s Sulfa Drug Active [facility] (Sulfona Allergy [facility] - mide 00:00: Medical Antibiot 00 Frederica ics) Ketorola Propensi Active [facility] c ty to 2-24 [facility] - adverse 00:00: Medical reaction 00 Frederica s Social History Social Habit Start Date Stop Date Quantity Comments Source Sex Assigned At [facility] Medications Ordered Filled Start Stop Current Ordering Indication Dosage Frequency Signature Comments Components Source Medication Medication Date Date Medication? Clinician (SIG) Name Name phenytoin Yes epilepsy [id number] Take by [facility] (DILANTIN) 2-24 [id number] mouth 3 [facility] - 100 MG ER 15:02: 3D (three) Medic al capsule 50 times Center daily. Procedures This patient has no known procedures. Encounters Start End Encounter Admission Attending Care Care Encounter Source Date/Time Date/Time Type Type Clinicians Facility Department ID 2019-11-27 2019-11-27 Telephone Anene, [facility] [id number] 00:00:00 00:00:00 [facility] [id number] [place] [id number] Professio [phone] [place] [address] [address] 2019-11-25 2019-11-25 Urgent Pob1, Acute [facility] [id number] 14:55:25 15:15:25 [facility] [id number] [place] [id number] Professio [phone] [place] [address] [address] 2019-11-25 2019-11-25 Telephone Pob1, Acute [facility] [id number] 00:00:00 00:00:00 [facility] [id number] [place] [id number] Professio [phone] [place] [address] [address] Results Test Description Test Time Test Comments Results Result Comments Source CARDIOLIPIN ANTIBODIES, IGG AND IGM 2016-10-19 11:17:00 Test Item Value Reference Range Interpretation Comme nts ANTICARDIOLIPIN IGG ANTIBODY (CultureMap) (test code = 712) < GPL ANTICARDIOLIPIN IGM ANTIBODY (CultureMap) (test code = 713) 0.6 MPL Anticardiolipin IgG Result Interpretation: NEG:<20 GPL; U/mlPOS:>/=20 GPL;U/mlAnticardiolipinIgM Result Interpretation: NEG:<20 MPL; U/mlPOS:>/=20 MPL;[id number] 19:19:00 Test Item Value Reference Range Interpretation Comments HOMOCYSTEINE (JACOB) (test code 19.1 umol/L 5.1-15.4 H = 642) HEMOGLOBIN [id number] 16:55:00 Test Item Value Reference Range Interpretation Comments HEMOGLOBIN A1C (BEAKER) (test code = 5.1 % 4.3-6.1 368) TSH/FREE T4 IF [id number] 16:00:00 Test Item Value Reference Range Interpretation Comments THYROID STIMULATING HORMONE 1.64 uIU/mL 0.35-4.94 (BEAKER) (test code = 772) VITAMIN B12 AND [id number] 16:00:00 Test Item Value Reference Range Interpretation Comments VITAMIN B12 (BEAKER) (test code = 241 pg/mL 213-816 774) FOLATE (BEAKER) (test code = 362) 3.7 ng/mL >=7.0 L Effective 07/08/2014: Folate Reference Range ChangeNew: >=7.0 Previous: >=5.4SEDIMENTATION [id number] 15:57:00 Test Item Value Reference Range Interpretation Comments SEDIMENTATION RATE, ERYTHROCYTE 8 mm/HR 0-20 (BEAKER) (test code = 766) LIPID [id number] 15:32:00 Test Item Value Reference Range Interpretation [...] Borderline 130-159 High 160-189 Very High >=190C-REACTIVE [id number] 15:30:00 Test Item Value Reference Range Interpretation Comments C-REACTIVE PROTEIN (BEAKER) (test 2.96 mg/dL 0.00-0.50 H code = 676) CBC W/PLT COUNT & AUTO [id number] 15:05:00 Test Item Value Reference Range Interpretation [...] K/ L 0.00-0.20 (test code = 417) [id number] 07:34:00 Test Item Value Reference Range Interpretation Comments MAGNESIUM (BEAKER) 2.0 mg/dL 1.6-2.6 Specimen slightly (test code = 627) hemolyzed BASIC METABOLIC [id number] 07:33:00 Test Item Value Reference Range Interpretation [...] S NOT APPLICABLE FOR DIALYSIS PATIEN TS. [id number] 07:27:00 Test Item Value Reference Range Interpretation Comments MAGNESIUM (BEAKER) (test code = 1.7 mg/dL 1.6-2.6 627) SCREEN, [id number] 13:54:00 Test Item Value Reference Range Interpretation Comments TEST URINE (BEAKER) (test Negative code = 583) [id number] 02:55:00 Test Item Value Reference Range Interpretation Comments MAGNESIUM (BEAKER) (test code = 1.8 mg/dL 1.6-2.6 627) PHENYTOIN LEVEL, [id number] 00:30:00 Test Item Value Reference Range Interpretation Comments PHENYTOIN (DILANTIN) (BEAKER) (test 7.3 ug/mL 10.0-20.0 L code = 605) HEPATIC FUNCTION [id number] 00:26:00 Test Item Value Reference Range Interpretation [...] = 20 U/L 6-55 347) BASIC METABOLIC [id number] 00:26:00 Test Item Value Reference Range Interpretation [...] S NOT APPLICABLE FOR DIALYSIS PATIEN TS. [id number] 00:26:00 Test Item Value Reference Range Interpretation Comments ALBUMIN (BEAKER) (test code = 1145) 3.8 g/dL 3.5-5.0 CBC W/PLT COUNT & AUTO [id number] 00:16:00 Test Item Value Reference Range Interpretation [...]
[2020-02-28] MEDS ORDERED: NA CHLORIDE 0.9% 1,000 ML ONE (14:49)
[2020-02-28] MEDS ORDERED: ACETAMINOPHEN 500 MG TAB ONE (14:49)
[2020-02-28 15:09] LABS: Absolute Lymphocytes (CBC) 0.4 K/uL (0.7-4.9); Basophils % 0.1 % (0-1.3); Hematocrit 47.8 % (36.0-45.0); Lymphocytes % 3.5 % (15.3-44.8); MPV 8.3 fL (7.6-11.3); RBC Red Blood Cell Count 5.49 M/uL (3.86-4.86)
[2020-02-28 15:12] LABS: Protime INR 0.88
[2020-02-28] MEDS ORDERED: ONDANSETRON 4 MG/2 ML VIAL ONE (15:15)
[2020-02-28] MEDS ORDERED: NA CHLORIDE 0.9% 2,000 ML ONE (15:21)
--- NOTE | 2020-02-28 15:23 | RAD REPORT ---
EXAM DESCRIPTION: Saman Single View02/28/2020 3:16 pm CLINICAL HISTORY: Abdominal pain COMPARISON: January 2020 FINDINGS: The lungs appear clear of acute infiltrate. The heart is normal size IMPRESSION: No acute abnormalities displayed
[2020-02-28 15:33] LABS: ALT/SGPT 33 U/L (12-78); AST/SGOT 24 U/L (15-37); Albumin 3.2 g/dL (3.4-5.0); Alkaline Phosphatase 151 U/L (45-117); BUN Blood Urea Nitrogen 8 mg/dL (7-18); Bicarbonate 23 mmol/L (21-32); Bilirubin Direct 0.2 mg/dL (0-0.2); Bilirubin Total 0.6 mg/dL (0.2-1.0); Glucose Level 89 mg/dL (74-106); Potassium 3.8 mmol/L (3.5-5.1); Sodium Level 139 mmol/L (136-145)
[2020-02-28 15:34] LABS: Amylase 52 U/L (25-115); CKMB Creatine Kinase MB < 1.0 ng/mL (0.3-3.6); Creatine Phosphokinase 62 U/L (26-192); Lipase 214 U/L (73-393); Troponin (Emerg Dept Use Only) < 0.02 ng/mL (0.0-0.045)
[2020-02-28] MEDS ORDERED: MORPHINE 4 MG/ML SYR ONE ×2 (15:35→16:16)
[2020-02-28 15:46] LABS: Blood Morphology Comment NOT SEEN (NOT SEEN); Platelet Estimate ADEQ; Urine White Blood Cell Casts OK
[2020-02-28 16:46] LABS: Urine Bacteria 20-50 /HPF (<20); Urine Culture Reflex Order REFLEXED; Urine RBC <5 /HPF (NONE SEEN)
[2020-02-28 17:19] LABS: Urine Blood 1+ (NEG); Urine Glucose NEGATIVE (NEG); Urine Protein NEGATIVE (NEG); Urine Specific Gravity 1.025 (1.005-1.030); Urine pH 6.5 (5.0-7.0)
--- NOTE | 2020-02-28 17:22 | RAD REPORT ---
EXAM DESCRIPTION: CT - Stone Protocol - 02/28/2020 4:50 pm CLINICAL HISTORY: Abdominal pain. COMPARISON: 2018 TECHNIQUE: Computed axial tomography of the abdomen pelvis was obtained without oral or IV contrast. Lack of IV and oral contrast limits evaluation of solid organs, bowel, and vessels. Coronal reformat greta images were obtained and reviewed. All CT scans are performed using dose optimization technique as appropriate and may include automated exposure control or mA/KV adjustment according to patient size. FINDINGS: Small bilateral renal calculi. No hydronephrosis. A ureteral calculus is not seen. A bladd er calculus is not present. . Small renal cysts The liver, spleen, pancreas and adrenals appear grossly normal There is no evidence of diverticulitis. The appendix appears normal IMPRESSION: Small, bilateral nonobstructing renal calculi
--- NOTE | 2020-02-28 17:57 | ER ---
Nurse's Notes [facility] Name: Nelia Corley Age: 39 yrs Sex: Female : 1980 Arrival Date: 02/28/2020 Time: 14:12 Bed 25 Private MD: Diagnosis: Abdominal and pelvic pain;Urinary tract infection, site not specified Presentation: 02/27 14:24 Chief complaint: Patient states: right flank pain started this morning at 1100 and sv radiates to the RLQ now, c/o n/v/fever, increased urinary frequency. Reports taking Motrin and Zofran today. Coronavirus screen: Proceed with normal triage. Patient denies a cough. Patient denies shortness of breath or difficulty breathing. Patient reports a measured and/or subjective temperature greater than 100.4F. Patient denies travel on a cruise ship or to a country the [facility] currently lists as an affected area. Patient denies contact with known and/or suspected case of COVID-19. Ebola Screen: No symptoms or risks identified at this time. Risk Assessment: Do you want to hurt yourself or someone else? Patient reports no desire to harm self or others. Onset of symptoms was February 28, 2020. 14:24 Method Of Arrival: Ambulatory sv 14:24 Acuity: JENNIFER 2 sv 14:26 Initial Sepsis Screen: Does the patient meet any 2 criteria? RR > 20 per min. HR > 90 sv bpm. Yes Does the patient have a suspected source of infection? Yes: Dysuria/Frequency/Urgency/UTI Acute abdominal pain Other: fever. Triage Assessment: 14:24 General: Appears in no apparent distress. uncomfortable, Behavior is cooperative, sv restless. Pain: Complains of pain in right low back Pain radiates to posterior aspect of right lateral abdomen, anterior aspect of right lateral abdomen and right lower quadrant Pain currently is 10 out of 10 on a pain scale. Pain began 3 hours ago. Is continuous. Neuro: Level of Consciousness is awake, alert, obeys commands, Oriented to person, place, time, situation, Moves all extremities. Full function Gait is steady. Respiratory: Respiratory effort is even, unlabored, Respiratory pattern is symmetrical, tachypnea. GI: Reports nausea, vomiting. Historical: - Allergies: 14:25 Ceclor; sv 14:25 Sulfa (Sulfonamide Antibiotics); sv 14:25 Ultram; sv - PMHx: 14:25 Hyperlipidemia; Hypertension; NSTEMI; ADD/ADHD; right rotator cuff torn; Anxiety; CVA; sv Seizures; Kidney stones; - Immunization history:: Adult Immunizations up to date. - Social history:: Smoking status: unknown. Screenin:30 Abuse screen: Denies threats or abuse. Denies injuries from another. Nutritional ls4 screening: No deficits noted. Tuberculosis screening: No symptoms or risk factors identified. Fall Risk None identified. Assessment: 14:34 Reassessment: Code Sepsis called. sv 14:35 General: Appears in no apparent distress. uncomfortable, Behavior is anxious, crying. ls4 14:35 Neuro: Level of Consciousness is awake, alert, obeys commands, Oriented to person, ls4 place, time, situation. Cardiovascular: Denies chest pain, Capillary refill < 3 seconds Patient's skin is warm and dry. Respiratory: Denies cough, shortness of breath labored breathing. GI: Bowel sounds present X 4 quads. Abd is soft and non tender X 4 quads. Reports lower abdominal pain, nausea, vomiting. : Urine is clear, Reports burning with urination, cramping, in right in left flank(s) lower back urgency. Derm: No deficits noted. No signs and/or symptoms reported regarding the dermatologic system. Musculoskeletal: No deficits noted. No signs and/or symptoms reported regarding the musculoskeletal system. 16:00 Reassessment: Patient appears in no apparent distress at this time. Patient and/or ls4 family updated on plan of care and expected duration. Pain level reassessed. Patient is alert, oriented x 3, equal unlabored respirations, skin warm/dry/pink. 17:00 Reassessment: Patient appears in no apparent distress at this time. Patient and/or ls4 family updated on plan of care and expected duration. Pain level reassessed. Patient is alert, oriented x 3, equal unlabored respirations, skin warm/dry/pink. 18:00 Reassessment: Patient appears in no apparent distress at this time. Patient and/or ls4 family updated on plan of care and expected duration. Pain level reassessed. Patient is alert, oriented x 3, equal unlabored respirations, skin warm/dry/pink. Patient states feeling better. Patient states symptoms have improved. Vital Signs: 14:26 BP 193 / 121; Pulse 106; Resp 24; Temp 100.4; Pulse Ox 98% ; Weight 104.33 kg; Height 5 sv ft. 0 in. (152.40 cm); 16:22 BP 174 / 102; Pulse 76; Resp 16; Pulse Ox 96% on R/A; Pain 6/10; ls4 14:26 Body Mass Index 44.92 (104.33 kg, 152.40 cm) sv ED Course: 14:12 Patient arrived in ED. as 14:16 Hank Collins MD is Attending Physician. kdr 14:24 Arm band placed on. sv 14:25 Triage completed. sv 14:38 Judith Wright, LELO is Primary Nurse. ss 15:09 Inserted saline lock: 22 gauge in right hand, using aseptic technique. Patient ss maintains SpO2 saturation greater than 95% on room air. 15:14 Chest Single View XRAY In Process Unspecified. EDMS 16:50 CT Stone Protocol In Process Unspecified. EDMS 16:50 No apparent distress. ls4 18:39 No provider procedures requiring assistance completed. IV discontinued, intact, ls4 bleeding controlled, No redness/swelling at site. Pressure dressing applied. Administered Medications: 15:10 Drug: Zofran (Ondansetron) 4 mg Route: IVP; Site: right antecubital; ls4 15:25 Follow up: Response: No adverse reaction; Marked relief of symptoms ls4 15:11 Drug: Tylenol 1000 mg Route: PO; ls4 15:45 Follow up: Response: No adverse reaction; Marked relief of symptoms ls4 15:15 Drug: NS 0.9% (30 ml/kg) 3000 ml Route: IV; Rate: bolus; Site: right hand; ls4 15:36 Drug: morphine 4 mg Route: IVP; Site: left hand; ls4 16:04 Follow up: Response: No adverse reaction; Pain is decreased ls4 16:15 Drug: morphine 4 mg Route: IVP; Site: right hand; ls4 16:29 Follow up: Response: No adverse reaction; Marked relief of symptoms ls4 Outcome: 17:57 Discharge ordered by . kdr 18:12 Condition: good ls4 18:12 Discharged to home ambulatory. ls4 18:12 Discharge instructions given to patient, Instructed on discharge instructions, follow up and referral plans. medication usage, Demonstrated understanding of instructions, follow-up care, medications, Prescriptions given X 3. 18:12 Patient left the ED. ls4 Addendum: 03/02/2020 08:16 Addendum: Culture Results: Positive urine culture. No further action required. Bacteria s s sensitive to prescribed antibiotic. Signatures: Dispatcher [employer] EDMS Ophelia Witt RN RN sv Hank Collins MD MD kdr Martinez, Amelia as Smirch, Shelby, RN RN Yoselin Dumont RN RN ls4 Corrections: (The following items were deleted from the chart) 02/27 14:30 14:24 Acuity: JENNIFER 3 sv sv 14:35 14:24 Chief complaint: Patient states: right flank pain started this morning at 1100 sv and radiates to the RLQ now, c/o n/v/fever. sv 14:35 14:26 Initial Sepsis Screen: Does the patient meet any 2 criteria? RR > 20 per min. HR sv > 90 bpm. Yes Does the patient have a suspected source of infection? No. Patient's initial sepsis screen is negative. sv 14:36 14:24 Chief complaint: Patient states: right flank pain started this morning at 1100 sv and radiates to the RLQ now, c/o n/v/fever, increased urinary frequency. sv 18:39 18:39 No apparent distress. ls4 ls4 18:42 18:40 Patient left the ED. ls4 ls4
--- NOTE | 2020-02-28 17:58 | EDPHYS ---
Physician Documentation [facility] Name: Nelia Corley Age: 39 yrs Sex: Female : 1980 Arrival Date: 02/28/2020 Time: 14:12 Bed 25 Private MD: ED Physician Hank Collins HPI: 02/27 17:14 This 39 yrs old Female presents to ER via Ambulatory with complaints of kdr Abdominal Pain, Vomiting, Fever. 17:14 The patient presents to the emergency department with nausea, that is mild, vomiting, kdr that is intermittent. Onset: The symptoms/episode began/occurred suddenly. Possible causes: unknown. The symptoms are aggravated by nothing. The symptoms are alleviated by nothing. Associated signs and symptoms: Pertinent positives: abdominal pain, dysuria, fever, nausea, vomiting. Severity of symptoms: At their worst the symptoms were severe incapacitating in the emergency department the symptoms. The patient has not experienced similar symptoms in the past. The patient has not recently seen a physician. Historical: - Allergies: 14:25 Ceclor; sv 14:25 Sulfa (Sulfonamide Antibiotics); sv 14:25 Ultram; sv - PMHx: 14:25 Hyperlipidemia; Hypertension; NSTEMI; ADD/ADHD; right rotator cuff torn; Anxiety; CVA; sv Seizures; Kidney stones; - Immunization history:: Adult Immunizations up to date. - Social history:: Smoking status: unknown. ROS: 17:14 Constitutional: Negative for fever, chills, and weight loss, Eyes: Negative for injury, kdr pain, redness, and discharge, Neck: Negative for injury, pain, and swelling, Cardiovascular: Negative for chest pain, palpitations, and edema, Respiratory: Negative for shortness of breath, cough, wheezing, and pleuritic chest pain, Back: Negative for injury and pain, : Negative for injury, bleeding, discharge, and swelling, MS/Extremity: Negative for injury and deformity, Skin: Negative for injury, rash, and discoloration, Neuro: Negative for headache, weakness, numbness, tingling, and seizure activity. Psych: Negative for depression, anxiety, suicide ideation, homicidal ideation, and hallucinations, Allergy/Immunology: Negative for hives, rash, and allergies, Endocrine: Negative for neck swelling, polydipsia, polyuria, polyphagia, and marked weight changes, Hematologic/Lymphatic: Negative for swollen nodes, abnormal bleeding, and unusual bruising. 17:14 Abdomen/GI: Positive for nausea and vomiting, right POSTERIOR, SUPERIOR HIP PAIN THAT IS RADIATING TO RIGHT FLANK AND ruq. Exam: 17:11 ECG was reviewed by the Attending Physician. kdr 17:14 Constitutional: This is a well developed, well nourished patient who is awake, alert, kdr and in mild to moderate distress. Head/Face: Normocephalic, atraumatic. Eyes: Pupils equal round and reactive to light, extra-ocular motions intact. Lids and lashes normal. Conjunctiva and sclera are non-icteric and not injected. Cornea within normal limits. Periorbital areas with no swelling, redness, or edema. Neck: Trachea midline, no thyromegaly or masses palpated, and no cervical lymphadenopathy. Supple, full range of motion without nuchal rigidity, or vertebral point tenderness. No Meningismus. Chest/axilla: Normal chest wall appearance and motion. Nontender with no deformity. No lesions are appreciated. Cardiovascular: Regular rate and rhythm with a normal S1 and S2. No gallops, murmurs, or rubs. Normal PMI, no JVD. No pulse deficits. Respiratory: Lungs have equal breath sounds bilaterally, clear to auscultation and percussion. No rales, rhonchi or wheezes noted. No increased work of breathing, no retractions or nasal flaring. Skin: Warm, dry with normal turgor. Normal color with no rashes, no lesions, and no evidence of cellulitis. MS/ Extremity: Pulses equal, no cyanosis. Neurovascular intact. Full, normal range of motion. Neuro: Awake and alert, GCS 15, oriented to person, place, time, and situation. Cranial nerves II-XII grossly intact. Motor strength 5/5 in all extremities. Sensory grossly intact. Cerebellar exam normal. Normal gait. Psych: Awake, alert, with orientation to person, place and time. Behavior, mood, and affect are within normal limits. 17:14 Abdomen/GI: Inspection: obese Bowel sounds: active, diminished, in all quadrants, Palpation: soft, mild abdominal tenderness, in the epigastric area, umbilical area, posterior aspect of right lateral abdomen, anterior aspect of right lateral abdomen, right upper quadrant and right lower quadrant. Vital Signs: 14:26 BP 193 / 121; Pulse 106; Resp 24; Temp 100.4; Pulse Ox 98% ; Weight 104.33 kg; Height 5 sv ft. 0 in. (152.40 cm); 16:22 BP 174 / 102; Pulse 76; Resp 16; Pulse Ox 96% on R/A; Pain 6/10; ls4 14:26 Body Mass Index 44.92 (104.33 kg, 152.40 cm) sv MDM: 17:14 Data reviewed: vital signs, nurses notes, lab test result(s), radiologic studies. kdr Counseling: I had a detailed discussion with the patient and/or guardian regarding: the historical points, exam findings, and any diagnostic results supporting the discharge/admit diagnosis, lab results, radiology results, the need for outpatient follow up. 17:57 Patient medically screened. kdr 02/27 14:37 Order name: Amylase, Serum; Complete Time: 16:06 kdr 02/27 14:37 Order name: Basic Metabolic Panel; Complete Time: 16:06 kdr 02/27 14:37 Order name: Blood Culture Adult (2) kdr 02/27 14:37 Order name: CBC with Diff; Complete Time: 16:06 kdr 02/27 14:37 Order name: Ckmb; Complete Time: 16:06 kdr 02/27 14:37 Order name: CPK; Complete Time: 16:06 kdr 02/27 14:37 Order name: Lactate; Complete Time: 16:06 kdr 02/27 14:37 Order name: LFT's; Complete Time: 16:06 kdr 02/27 14:37 Order name: Lipase; Complete Time: 16:06 kdr 02/27 14:37 Order name: Procalcitonin; Complete Time: 17:20 kdr 02/27 14:37 Order name: Protime (+inr); Complete Time: 16:06 kdr 02/27 14:37 Order name: Ptt, Activated; Complete Time: 16:06 kdr 02/27 14:37 Order name: Troponin (emerg Dept Use Only); Complete Time: 16:06 kdr 02/27 14:37 Order name: Urine Microscopic Only; Complete Time: 17:20 kdr 02/27 14:37 Order name: Chest Single View XRAY; Complete Time: 16:06 kdr 02/27 14:37 Order name: Cardiac monitoring; Complete Time: 16:29 kdr 02/27 14:37 Order name: EKG - Nurse/Tech; Complete Time: 16:29 [facility] 02/27 14:37 Order name: IV Saline Lock - Large Bore; Complete Time: 15:09 [facility] 02/27 14:46 Order name: COVID-19; Complete Time: 17:31 kdr 02/27 15:31 Order name: Urine Dipstick--Ancillary (enter results); Complete Time: 17:20 02/27 15:31 Order name: Urine --Ancillary (enter results); Complete Time: 17:20 02/27 15:46 Order name: CBC Smear Scan; Complete Time: 16:06 [facility] 02/27 16:16 Order name: CT Stone Protocol; Complete Time: 17:31 [facility] 02/27 16:47 Order name: Urine Culture [facility] 02/27 14:37 Order name: Labs collected and sent; Complete Time: 14:41 [facility] 02/27 14:37 Order name: O2 Per Protocol; Complete Time: 15:09 [facility] 02/27 14:37 Order name: O2 Sat Monitoring; Complete Time: 14:41 [facility] 02/27 14:37 Order name: Urine Dipstick-Ancillary (obtain specimen); Complete Time: 16:29 kdr EC:11 Rate is 85 beats/min. Rhythm is regular, Sinus Rhythm with No ectopy. QRS [place] is kdr Normal. RI interval is normal. QRS interval is normal. QT interval is normal. No Q waves. Clinical impression: Normal ECG. Administered Medications: 15:10 Drug: Zofran (Ondansetron) 4 mg Route: IVP; Site: right antecubital; ls4 15:25 Follow up: Response: No adverse reaction; Marked relief of symptoms ls4 15:11 Drug: Tylenol 1000 mg Route: PO; ls4 15:45 Follow up: Response: No adverse reaction; Marked relief of symptoms ls4 15:15 Drug: NS 0.9% (30 ml/kg) 3000 ml Route: IV; Rate: bolus; Site: right hand; ls4 15:36 Drug: morphine 4 mg Route: IVP; Site: left hand; ls4 16:04 Follow up: Response: No adverse reaction; Pain is decreased ls4 16:15 Drug: morphine 4 mg Route: IVP; Site: right hand; ls4 16:29 Follow up: Response: No adverse reaction; Marked relief of symptoms ls4 Disposition: 02/28/20 17:57 Discharged to Home. Impression: Abdominal and pelvic pain, Urinary tract infection, site not specified. - Condition is Stable. - Discharge Instructions: Urinary Tract Infection, Adult, Ywlp-jw-Dwty, Abdominal Pain, Adult, Dwsb-wb-Toxp. - Prescriptions for Bentyl 20 mg Oral Tablet - take 1 tablet by ORAL route every 6 hours As needed; 20 tablet. Tylenol- Codeine #3 300-30 mg Oral Tablet - take 2 tablets by ORAL route every 6 hours As needed; 12 tablet. Macrobid 100 mg Oral Capsule - take 1 capsule by ORAL route every 12 hours for 7 days; 14 capsule. - Medication Reconciliation Form, Thank You Letter, Antibiotic Education, Prescription Opioid Use form. - Follow up: Private Physician; When: 2 - 3 days; Reason: If symptoms return, Further diagnostic work-up, Recheck today's complaints, Continuance of care, Re-evaluation by your physician. - Problem is new. - Symptoms have improved. Signatures: Dispatcher [employer] EDOphelia Knowles, RN RN Hank Collins MD MD kdr Angel Jean-Baptiste, PIPE FITTER SUPERVISOR-C PIPE FITTER SUPERVISOR-Cla1 Yoselin Dumont RN RN ls4 Corrections: (The following items were deleted from the chart) 18:40 17:57 02/28/2020 17:57 Discharged to Home. Impression: Abdominal and pelvic pain; ls4 Urinary tract infection, site not specified. Condition is Stable. Forms are Medication Reconciliation Form, Thank You Letter, Antibiotic Education, Prescription Opioid Use. Follow up: Private Physician; When: 2 - 3 days; Reason: If symptoms return, Further diagnostic work-up, Recheck today's complaints, Continuance of care, Re-evaluation by your physician. Problem is new. Symptoms have improved. kdr
[2020-02-28 18:56] VITALS: TEMP 100.4
[2020-02-28 18:58] VITALS: BP 174/102; O2SAT 96
== END 2020-02-28 18:40 | disposition home or self-care (01) ==
LOC: ER 14:10
DX: N39.0 Urinary tract infection, site not specified (principal); R10.2 Pelvic and perineal pain; Z88.1 Allergy status to other antibiotic agents; Z88.2 Allergy status to sulfonamides
CPT/HCPCS: 36415; 71045; 74176; 76377; 80048; 80076; 81003; 81015; 81025; 82150; 82550; 82553; 83605; 83690; 84145; 84484; 85025; 85610; 85730; 87040; 87077; 87086; 87088; 87186; 87205; 93005; 99284; J2405; J7030; U0002

== ENCOUNTER 2020-02-29 17:02 | Inpatient (IN) | payer OTHER ==
--- OUTSIDE RECORDS SUMMARY | 2020-02-29 17:04 | XMS REPORT | Clinical Summary ---
:1980 [facility] Address [address] [place] [address] Care Team Providers Name Role Phone Louie [...] 10/14/2016 Seizure disorder 10/14/2016 Hypertensive urgency 10/14/2016 Encounters Date Type Specialty Care Team Description 02/28/2020 Lab Requisition Lab after 02/28/2019 Social History Tobacco Use Types Packs/Day Years Used Date Never Assessed Sex Assigned at Date Recorded Not on file Job Start Date Occupation Industry Not on file Not on file Not on file Travel History Travel Start Travel End No recent travel history available. Last Filed Vital Signs Not on file Plan of Treatment Not on file Procedures Procedure Name Priority Date/Time Associated Diagnosis Comme nts SARS-COV2/RT-PCR Routine 02/28/2020 3:04 PM Resu lts for this ([facility]) CDT procedure are in the results section. after 02/28/2019 Results SARS-CoV2/RT-PCR ([facility]) (02/28/2020 3:04 PM CDT) SARS-COV2/RT-PCR Negative Not Detected, Negative [facility] SARS-COV-2 PERFORMING LAB [facility] Specimen Other Narrative Performed At Negative result for this test determines that [facility] SARS-CoV-2 RNA was not present in the specimen above the Limit of Detection (LOD).However, Negative results do not preclude SARS-CoV-2 infection and should not be used as the sole basis for treatment or patient management decisions. Negative results must be combined with clinical observations, patient history, and epidemiological information. A false negative result may occur if a specimen is improperly collected, transported or handled.A false negative result should be considered if patient's recent exposures or clinical presentation indicate that COVID-19 (SARS-CoV-2) is likely and diagnostic tests for other causes of illness are negative.Re-testing should be considered in cases of suspected false negatives. The limit of detection for this assay is 800 copies/mL. This SARS CoV-2 test is a real-time RT-PCR test intended for the qualitative detection of nucleic acid from SARS-CoV-2 in a nasopharyngeal swab specimen collected from individuals suspected of COVID-19 by their healthcare provider. This test has not been Food and Drug Administration (FDA) cleared or approved.This is a modified version of an approved Emergency Use Authorization (EUA) and is in the process of review by the FDA. Once authorized by the FDA, the issued EUA will be effective until the declaration that circumstances exist justifying the authorization of the emergency use of in vitro diagnostic tests for detection and/or diagnosis of COVID-19 is terminated under Section 564(b)(2) of the Act or the EUA is revoked under Section 564(g) of the Act. Fact Sheet for Healthcare Providers: https://www.Tripl.com/sites/default/files/pro duct/documents/Fact_Sheet_HC_Providers_Lyra_SA RS-CoV-2.pdf Fact Sheet for Healthcare Patients: https://www.Tripl.[employer]/sites/default/files/pro duct/documents/Fact_Sheet_Patients_Lyra_SARS-C oV-2.pdf Performing Laboratory: [address] [place] [address] Performing Organization Address City/State/Zipcode Phone Number [address] [address] CENTER after 02/28/2019 Insurance Payer Benefit Plan / Subscriber ID Type Phone Address Group MEDICAID - MEDICAID [facility] COMM STAR xxxxxxxxx Medicaid Contracted MGD CARE PLAN Advance Directives For more information, please contact:[place] [id number] [place], [place] [phone] Code Status Date Activated Date Inactivated Comments Full Code 10/14/2016 3:43 PM 10/18/2016 2:41 AM This code status was determined by: Patient
--- OUTSIDE RECORDS SUMMARY | 2020-02-29 17:05 | XMS REPORT | Continuity of Care Document ---
:1980 Author Organization [facility] t Address [address] [place] [address] Care Team Providers Name Role Phone Sharpless Primary Care Physician Randa CLERICAL SPECIALIST Attending Clinician Pob1, Care Clinic Attending Clinician Unavailable LUIS E Attending Clinician Unavailable ZIVIKASH Admitting Clinician Unavailable Payers Payer Name Policy Policy Number Effective Expiration Source Type Date Date MEDICAID - MEDICAID [facility] xxxxxxxxx [facility] - PLANxxxxxxxxxMedicaid Med ical Contracted Center Problems Condition Condition Condition Status Onset Resolution Last Treating Co mments Source Name Details Category Date Date Treatment Clinician Date Headache [facility] [place] Seizure Seizure Disease Active [facility] disorder [facility] Hypertensi Hypertensi Disease Active [facility] ve urgency ve urgency 2-24 [facility] k[facility] - 00:00: Medical 00 Center Allergies, Adverse Reactions, Alerts Allergy Allergy Status Severity Reaction(s) Onset Inactive Treating Comm ents Source Name Type Date Date Clinician Cefaclor Propensi Active [facility] - adverse 00:00: Medical reaction 00 Center s Sulfa Drug Active [facility] (Sulfona Allergy [facility] mide 00:00: Medical Antibiot 00 Center ics) Ketorola Propensi Active [facility] to 2-24 [facility] - adverse 00:00: Medical reaction 00 [place] Social History Social Habit Start Date Stop Date Quantity Comments Source Sex Assigned At [facility] Medications Ordered Filled Start Stop Current Ordering Indication Dosage Frequency Signature Comments Components Source Medication Medication Date Date Medication? Clinician (SIG) Name Name phenytoin 2017-0 Yes epilepsy [id number] Take by [facility] (DILANTIN) 2-24 [id number] mouth 3 [facility] - 100 MG ER 15:02: 3D (three) Medic al capsule 50 times Center daily. Procedures Procedure Date / Time Performed Performing Clinician Sourc e SARS-COV2/RT-PCR ([facility] 2020-02-28 15:04:00 [facility] Medical Center Encounters Start End Encounter Admission Attending Care Care Encounter Source Date/Time Date/Time Type Type Clinicians Facility Department ID 2019-11-27 2019-11-27 Telephone Anene, [facility] [id number] 00:00:00 00:00:00 [facility] [id number] [place] [id number] Professio [phone] [place] [address] [address] 2019-11-25 2019-11-25 Urgent Pob1, Acute [facility] [id number] 14:55:25 15:15:25 [facility] [id number] [place] [id number] Professio [phone] [place] [address] [address] 2019-11-25 2019-11-25 Telephone Pob1, Acute [facility] [id number] 00:00:00 00:00:00 [facility] [id number] [place] [id number] Professio [phone] [place] [address] [address] Results Test Description Test Time Test Comments Results Result Comments Source SARS-CoV2/RT-PCR ([facility]) 2020-02-29 10:51:00 Test Item Value Reference Range Interpretation Comme nts SARS-COV2/RT-PCR (test code = Negative Not Detected, Negative 34003-4) [facility]COV-2 [facility] (test code = 22886-7) SUZI (test code = SUZI) Negative result for this test determines that SARS-CoV-2 RNA was not present in the specimen above the Limit of Detection (LOD). However, Negative results do not preclude SARS-CoV-2 infection and should not be used as the sole basis for treatment or patient management decisions. Negative results must be combined with clinical observations, patient history, and epidemiological information. A false negative result may occur if a specimen is improperly collected, transported or handled. A false negative result should be considered if patient's recent exposures or clinical presentation indicate that COVID-19 (SARS-CoV-2) is likely and diagnostic tests for other causes of illness are negative. Re-testing should be considered in cases of suspected [...] Food and Drug Administration (FDA) cleared or approved. This is a modified version of an approved [...] of the Act. Fact Sheet for Healthcare Providers:https://www.Notizza. [employer]/sites/default/files/produ ct/documents/Fact_Sheet_HC_Pr gxhyeiy_Tsiw_ZQAJ-PwY-0.pdf Fact Sheet for Healthcare Patients:https://www.Notizza.Peat[employer] om/sites/default/files/produc t/documents/Fact_Sheet_Patien ed_Xjxd_FOLU-JdP-9.pdf Performing Laboratory:[facility], [place] [address] [place], [place] [address]ARS-COV2/RT-PCR ([facility])2020-02-29 10:51:00 Test Item Value Reference Range Interpretation Comments SARS-COV2/RT-PCR (test code = Negative Not Detected, Negative 9270040) SARS-COV-2 PERFORMING LAB [facility] (test code = 6864960) Negative result for this test determines that SARS-CoV-2 RNA was not present in the specimen above the Limit of Detection (LOD). However, Negative results do not preclude SARS-CoV-2 infection and should not be used as the sole basis for treatment or patient management decisions. Negative results mustbe combined with clinical observations, patient history, and epidemiological information. A false negative result may occur if a specimen is improperly collected, transported or handled. A false negative result should be considered if patient's recent exposures or clinical presentation indicate that COVID-19 (SARS-CoV-2) is likely and diagnostic tests for other causes of illness are negative. Re-testing should be considered in cases of suspected false negatives.The limit of detection for this assay is 800 copies/mL.This SARS CoV-2 test is a real-time RT-PCR test intended for the qualitative detection of nucleic acid from SARS-CoV-2 in a nasopharyngeal swab specimen collected from individuals susp ected of COVID-19 by their healthcare provider.This test has not been Food and Drug Administration (FDA) cleared or approved. This is a modified version of an approved [...] is revoked under Section 564(g) of the Act.Fact Sheet for Healthcare Providers:https://www.Notizza.com/sites/default/files/product/documents/Fact_Shee j_YA_Boznqsygs_Wgis_OSYO-FdZ-5.pdfFact Sheet for Healthcare Patients:https://www.Notizza.com/sites/default/files/product/ documents/Yhcz_Hnhrr_Wbdlgrdk_Vzao_GDMW-OeK-0.pdfPerforming Laboratory:[facility], [place] [address]OMRCUJQREZU ANTIBODIES, IGG AND [id number] 11:17:00 Test Item Value Reference Range Interpretation Comments ANTICARDIOLIPIN IGG ANTIBODY (BEAKER) < GPL (test code = 712) ANTICARDIOLIPIN IGM ANTIBODY (BEAKER) 0.6 MPL (test code = 713) Anticardiolipin IgG Result Interpretation: NEG:<20 GPL; U/mlPOS:>/=20 GPL;U/mlAnticardiolipinIgM Result Interpretation: NEG:<20 MPL; U/mlPOS:>/=20 MPL;U/[id number] 19:19:00 Test Item Value Reference Range Interpretation Comments HOMOCYSTEINE (BEAKER) (test code 19.1 umol/L 5.1-15.4 H = 642) HEMOGLOBIN [id number] 16:55:00 Test Item Value Reference Range Interpretation Comments HEMOGLOBIN A1C (BEAKER) (test code = 5.1 % 4.3-6.1 368) TSH/FREE T4 IF [id number] 16:00:00 Test Item Value Reference Range Interpretation Comments THYROID STIMULATING HORMONE 1.64 uIU/mL 0.35-4.94 (BEAKER) (test code = 772) VITAMIN B12 AND [id number] 16:00:00 Test Item Value Reference Range Interpretation Comments VITAMIN B12 (BEAKER) (test code = 241 pg/mL 213-816 774) FOLATE (BEAKER) (test code = 362) 3.7 ng/mL >=7.0 L Effective 07/08/2014: Folate Reference Range ChangeNew: >=7.0 Previous: >=5.4SEDIMENTATION [id number] 15:57:00 Test Item Value Reference Range Interpretation Comments SEDIMENTATION RATE, ERYTHROCYTE 8 mm/HR 0-20 (BEAKER) (test code = 766) LIPID [id number] 15:32:00 Test Item Value Reference Range Interpretation [...] Borderline 130-159 High 160-189 Very High >=190C-REACTIVE [id number] 15:30:00 Test Item Value Reference Range Interpretation Comments C-REACTIVE PROTEIN (BEAKER) (test 2.96 mg/dL 0.00-0.50 H code = 676) CBC W/PLT COUNT & AUTO [id number] 15:05:00 Test Item Value Reference Range Interpretation [...] K/ L 0.00-0.20 (test code = 417) [id number] 07:34:00 Test Item Value Reference Range Interpretation Comments MAGNESIUM (BEAKER) 2.0 mg/dL 1.6-2.6 Specimen slightly (test code = 627) hemolyzed BASIC METABOLIC [id number] 07:33:00 Test Item Value Reference Range Interpretation [...] S NOT APPLICABLE FOR DIALYSIS PATIEN TS. [id number] 07:27:00 Test Item Value Reference Range Interpretation Comments MAGNESIUM (BEAKER) (test code = 1.7 mg/dL 1.6-2.6 627) SCREEN, [id number] 13:54:00 Test Item Value Reference Range Interpretation Comments TEST URINE (BEAKER) (test Negative code = 583) [id number] 02:55:00 Test Item Value Reference Range Interpretation Comments MAGNESIUM (BEAKER) (test code = 1.8 mg/dL 1.6-2.6 627) PHENYTOIN LEVEL, [id number] 00:30:00 Test Item Value Reference Range Interpretation Comments PHENYTOIN (DILANTIN) (BEAKER) (test 7.3 ug/mL 10.0-20.0 L code = 605) HEPATIC FUNCTION [id number] 00:26:00 Test Item Value Reference Range Interpretation [...] = 20 U/L 6-55 347) BASIC METABOLIC [id number] 00:26:00 Test Item Value Reference Range Interpretation [...] S NOT APPLICABLE FOR DIALYSIS PATIEN TS. [id number] 00:26:00 Test Item Value Reference Range Interpretation Comments ALBUMIN (BEAKER) (test code = 1145) 3.8 g/dL 3.5-5.0 CBC W/PLT COUNT & AUTO [id number] 00:16:00 Test Item Value Reference Range Interpretation [...]
[2020-02-29] MEDS ORDERED: METOCLOPRAMIDE 10 MG/2mL INJ ONE (18:07)
[2020-02-29] MEDS ORDERED: DIAZEPAM 10 MG/2 ML INJ SYRINGE ONE (18:08)
[2020-02-29] MEDS ORDERED: NA CHLORIDE 0.9% 1,000 ML ONE (18:08)
[2020-02-29 18:57] LABS: Absolute Lymphocytes (CBC) 0.8 K/uL (0.7-4.9); Basophils % 0.4 % (0-1.3); Hematocrit 46.2 % (36.0-45.0); Lymphocytes % 4.8 % (15.3-44.8); MPV 8.7 fL (7.6-11.3); RBC Red Blood Cell Count 5.29 M/uL (3.86-4.86)
[2020-02-29] MEDS ORDERED: ACETAMINOPHEN 500 MG TAB ONE (19:01)
[2020-02-29] MEDS ORDERED: FENTANYL CITR 100 MCG/2 ML ONE ×2 (19:01→21:12)
[2020-02-29 19:04] LABS: Albumin 3.1 g/dL (3.4-5.0); Bilirubin Direct 0.7 mg/dL (0-0.2); Bilirubin Total 1.4 mg/dL (0.2-1.0); Potassium 3.4 mmol/L (3.5-5.1); Protein, Total 7.2 g/dL (6.4-8.2)
--- NOTE | 2020-02-29 19:26 | RAD REPORT ---
EXAM DESCRIPTION: CT - Abdomen Pelvis W Contrast - 02/29/2020 7:02 pm CLINICAL HISTORY: flank pain, vomiting COMPARISON: Abdomen Pelvis W Contrast dated 08/19/2019; Stone Protocol dated 02/28/2020 TECHNIQUE: Biphasic, helical CT imaging of the abdomen and pelvis was performed following 100 ml non -ionic IV contrast. No oral contrast administered. All CT scans are performed using dose optimization technique as appropriate and may include automated exposure control or mA/KV adjustment according to patient size. FINDINGS: No suspicious findings in the lung bases. The liver, spleen, and pancreas show no suspicious findings. Cholecystectomy clips are present. No bi liary tree dilatation. No obstructing calculi are present. Punctate nonobstructing calculi are again noted. No left-sided hy dronephrosis. Small left-sided renal cysts are similar to comparison. Patient has a right-sided renal cyst. In the lower pole lateral right kidney there is a 2-2.5 centimeter area of decreased attenuati on and diminished enhancement. The patient had a 13 millimeter cyst in this region in 2019. Current f indings believed to be pyelonephritis of the right kidney incorporating this cyst. There is fluid and stranding in the perinephric fat. No solid mass lesions seen. No bladder abnormalities. No adrenal a bnormalities. Uterus and ovaries show no suspicious findings. No dilated bowel loops or bowel wall thickening. No free air, free fluid or pneumatosis. No hernia, mass or bulky lymphadenopathy. No suspicious bony findings. IMPRESSION: Pyelonephritis findings are evident in the lower pole of the right kidney surrounding a small cyst. Fluid in stranding are present in the right-side perinephric fat. Given the presence of a cyst in this location of infection, patient should be monitored to assure no development of renal abscess. No obstructing calculi seen. No right-sided hydronephrosis.
[2020-02-29 19:57] LABS: Blood Morphology Comment NOT SEEN (NOT SEEN); Platelet Estimate ADEQ; Urine White Blood Cell Casts OK
--- NOTE | 2020-02-29 19:58 | EDPHYS ---
Physician Documentation [facility] Name: Nelia Corley Age: 39 yrs Sex: Female : 1980 Arrival Date: 02/29/2020 Time: 17:06 Bed 17 Private MD: ED Physician Chadd Harris HPI: 02/28 17:33 This 39 yrs old Female presents to ER via EMS with complaints of Low Back jmm Pain. 17:33 The patient presents with pain that is acute, with no known mechanism of injury. The jmm symptoms are located in the low back. The pain does not radiate. Onset: The symptoms/episode began/occurred gradually, 3 day(s) ago. Modifying factors: The patient symptoms are alleviated by nothing, the patient symptoms are aggravated by any movement. Associated signs and symptoms: Pertinent positives: fever, vomiting. Seen yesterday, diagnosed with a UTI. Patient states symptoms have worsened. . 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 - Irregular menses jd3 Historical: - Allergies: 17:00 Ceclor; rb1 17:00 Sulfa (Sulfonamide Antibiotics); rb1 17:00 Ultram; rb1 - Home Meds: 17:00 amlodipine oral [Active]; Aspirin Oral [Active]; atorvastatin Oral [Active]; Clonidine rb1 Oral [Active]; Folic Acid Oral [Active]; Hydralazine Oral [Active]; lisinopril Oral [Active]; Metoprolol Tartrate Oral [Active]; Phenytoin Oral [Active]; topiramate Oral [Active]; - PMHx: 17:00 ADD/ADHD; Anxiety; CVA; Hyperlipidemia; Hypertension; Kidney stones; NSTEMI; right rb1 rotator cuff torn; Seizures; - Immunization history:: Adult Immunizations up to date. - Social history:: Smoking status: Patient reports the use of cigarette tobacco products, smokes one pack cigarettes per day. ROS: 17:33 Cardiovascular: Negative for chest pain, palpitations, and edema, Respiratory: Negative jmm for shortness of breath, cough, wheezing, and pleuritic chest pain. 17:33 Skin: Negative for injury, rash, and discoloration, Neuro: Negative for headache, weakness, numbness, tingling, and seizure, Psych: Negative for depression, anxiety, suicide ideation, homicidal ideation, and hallucinations. 17:33 Constitutional: Positive for fever. 17:33 All other systems are negative. Exam: 17:33 Constitutional: This is a well developed, well nourished patient who is awake, alert, jmm and in no acute distress. Head/Face: atraumatic. Eyes: EOMI, no conjunctival erythema appreciated ENT: Moist Mucus Membranes Neck: Trachea midline, Supple Chest/axilla: Normal chest wall appearance and motion. Cardiovascular: Regular rate and rhythm. No edema appreciated Respiratory: Normal respirations, no respiratory distress appreciated Abdomen/GI: Non distended, soft 17:33 Skin: General appearance color normal MS/ Extremity: Moves all extremities, no obvious deformities appreciated, no edema noted to the lower extremities Neuro: Awake and alert, normal gait Psych: Behavior is normal, Mood is normal, Patient is cooperative and pleasant 17:33 Back: muscle spasm, is appreciated in the right low back. Vital Signs: 17:00 BP 180 / 109; Pulse 96; Resp 17; Temp 100.2(O); Pulse Ox 100% ; Weight 113.4 kg (R); rb1 Height 5 ft. 0 in. (152.40 cm); Pain 10/10; 18:00 BP 133 / 89; Pulse 87; Resp 18; Pulse Ox 100% ; rb1 18:55 rb1 21:15 BP 158 / 89; Pulse 83; Resp 20 S; Temp 99.2(TE); Pulse Ox 100% on R/A; jd3 22:18 BP 148 / 91; Pulse 90; Resp 20 S; Pulse Ox 99% on R/A; jd3 23:07 Pulse 90; Resp 19 S; Pulse Ox 98% on R/A; jd3 17:00 Body Mass Index 48.83 (113.40 kg, 152.40 cm) rb1 18:[address] rb1 MDM: 17:09 Patient medically screened. [facility] 19:56 Data reviewed: vital signs, nurses notes. Counseling: I had a detailed discussion with caitlin the patient and/or guardian regarding: the historical points, exam findings, and any diagnostic results supporting the discharge/admit diagnosis, lab results, radiology results, the need for further work-up and treatment in the hospital. ED course: I discussed the patient with Dr. Acuña whom accepted admisison. . 02/28 17:25 Order name: Basic Metabolic Panel; Complete Time: 19:27 [facility] 02/28 17:25 Order name: CBC with Diff; Complete Time: 19:58 [facility] 02/28 17:25 Order name: Hepatic Function; Complete Time: 19:27 [facility] 02/28 17:25 Order name: Lipase; Complete Time: 19:27 [facility] 02/28 17:26 Order name: Procalcitonin; Complete Time: 19:49 [facility] 02/28 17:26 Order name: Lactate; Complete Time: 19:27 [facility] 02/28 17:26 Order name: Blood Culture Adult (2) [facility] 02/28 17:26 Order name: CT Abd/Pelvis - IV Contrast Only; Complete Time: 19:27 [facility] 02/28 19:00 Order name: CBC Smear Scan; Complete Time: 19:58 [facility] 02/28 17:25 Order name: Saline Lock; Complete Time: 18:38 [facility] 02/28 17:25 Order name: Labs collected and sent; Complete Time: 18:38 [facility] 02/28 19:28 Order name: PO challenge; Complete Time: 20:03 [facility] Administered Medications: 18:22 Drug: Valium 5 mg Route: IVP; Site: right antecubital; ls4 18:38 Follow up: Response: No adverse reaction; No change in condition ls4 18:37 Drug: Reglan 20 mg Route: IVP; Site: right antecubital; ls4 19:30 Follow up: Response: No adverse reaction jd3 18:38 Drug: NS 0.9% 1000 ml Route: IV; Rate: 1 bolus; Site: right antecubital; ls4 19:30 Follow up: Response: No adverse reaction; IV Status: Completed infusion; IV Intake: jd3 1000ml 18:56 Drug: fentaNYL (PF) 25 mcg Route: IVP; Site: right antecubital; rb1 19:50 Follow up: Response: No adverse reaction; RASS: Alert and Calm (0) jd3 18:56 Drug: Tylenol 1000 mg Route: PO; rb1 19:50 Follow up: Response: No adverse reaction jd3 20:03 Drug: Zofran (Ondansetron) 4 mg Route: IVP; Site: right antecubital; jd3 21:00 Follow up: Response: No adverse reaction jd3 21:15 Drug: fentaNYL (PF) 50 mcg Route: IVP; Site: right antecubital; jd3 22:15 Follow up: Response: No adverse reaction; RASS: Alert and Calm (0) jd3 21:46 Drug: LevaQUIN 750 mg Volume: 150 ml; Route: IVPB; Infused Over: 90 mins; Site: right jd3 antecubital; 23:35 Follow up: Response: No adverse reaction; IV Status: Completed infusion jd3 Disposition: 03/01 07:33 Co-signature as Attending Physician, Chadd Harris MD. rn Disposition: 02/29/20 19:58 Hospitalization ordered by Duc Acuña for Observation. Preliminary diagnosis are Pyelonephritis, Intractable Vomiting. - Bed requested for Telemetry/MedSurg (observation). - Status is Observation. jd3 - Condition is Stable. - Problem is new. - Symptoms are unchanged. Signatures: Dispatcher [employer] EDMS Herve Abraham PA PA jmm Nieto, Roman, MD MD rn Garcia, Cindy, RN RN cg Barber, Rebecca RN Julius Waters RN RN jd3 Stewart, Lisa, RN RN ls4 Corrections: (The following items were deleted from the chart) 02/28 22:37 19:58 Hospitalization Ordered by Duc Acuña for Observation. Preliminary diagnosis cg is Pyelonephritis; Intractable Vomiting. Bed requested for Telemetry/MedSurg (observation). Status is Observation. Condition is Stable. Problem is new. Symptoms are unchanged. [facility] 23:36 22:37 02/29/2020 19:58 Hospitalization Ordered by Duc Acuña for Observation. jd3 Preliminary diagnosis is Pyelonephritis; Intractable Vomiting. Bed requested for Telemetry/MedSurg (observation). Status is Observation. Condition is Stable. Problem is new. Symptoms are unchanged. cg
--- NOTE | 2020-02-29 19:58 | ER ---
Nurse's Notes [facility] Name: Nelia Corley Age: 39 yrs Sex: Female : 1980 Arrival Date: 02/29/2020 Time: 17:06 Bed 17 Private MD: Diagnosis: Pyelonephritis;Intractable Vomiting Presentation: 02/28 17:00 Chief complaint: EMS states: Pt. was here yesterday for a UTI, was sent home with an rb1 antibiotic and Zofran, but pt. says it is not getting any better. Pain 05/30. Nausea and vomiting x 3 days. History of Seizures, diverticulitis, and kidney stones. BP 182/116, P 99, 95% RA, 100 Temp. NKDA. 17:00 Coronavirus screen: Patient denies a cough. Patient denies shortness of breath or rb1 difficulty breathing. Patient reports a measured and/or subjective temperature greater than 100.4F. Patient denies travel on a cruise ship or to a country the [facility] currently lists as an affected area. Patient denies contact with known and/or suspected case of COVID-19. Ebola Screen: Patient denies travel to an Ebola-affected area in the 21 days before illness onset. Risk Assessment: Do you want to hurt yourself or someone else? Patient reports no desire to harm self or others. Onset of symptoms was February 26, 2020. 17:00 Method Of Arrival: EMS: [facility] rb1 17:00 Acuity: JENNIFER 3 rb1 17:00 Initial Sepsis Screen: Does the patient meet any 2 criteria? No. Patient's initial rb1 sepsis screen is negative. Does the patient have a suspected source of infection? Yes: Dysuria/Frequency/Urgency/UTI. Triage Assessment: 17:00 General: Appears uncomfortable, Behavior is crying, Reports fever for. Pain: Complains rb1 of pain in low back Pain radiates to bilateral sides Pain currently is 10 out of 10 on a pain scale. Neuro: Level of Consciousness is awake, alert, obeys commands, Oriented to person, place, time, situation. Cardiovascular: Capillary refill < 3 seconds. Respiratory: Airway is patent Respiratory effort is even, unlabored, Respiratory pattern is regular, symmetrical. GI: Reports nausea, vomiting. : Reports urinary frequency. Derm: Skin is pink, warm \T\ dry. Musculoskeletal: Range of motion: intact in all extremities. 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 - Irregular menses jd3 Historical: - Allergies: 17:00 Ceclor; rb1 17:00 Sulfa (Sulfonamide Antibiotics); rb1 17:00 Ultram; rb1 - Home Meds: 17:00 amlodipine oral [Active]; Aspirin Oral [Active]; atorvastatin Oral [Active]; Clonidine rb1 Oral [Active]; Folic Acid Oral [Active]; Hydralazine Oral [Active]; lisinopril Oral [Active]; Metoprolol Tartrate Oral [Active]; Phenytoin Oral [Active]; topiramate Oral [Active]; - PMHx: 17:00 ADD/ADHD; Anxiety; CVA; Hyperlipidemia; Hypertension; Kidney stones; NSTEMI; right rb1 rotator cuff torn; Seizures; - Immunization history:: Adult Immunizations up to date. - Social history:: Smoking status: Patient reports the use of cigarette tobacco products, smokes one pack cigarettes per day. Screenin:00 Abuse screen: Denies threats or abuse. Nutritional screening: No deficits noted. rb1 Tuberculosis screening: No symptoms or risk factors identified. Fall Risk None identified. Assessment: 17:00 General: See triage assessment. rb1 18:00 Reassessment: Patient appears in no apparent distress at this time. No changes from rb1 previously documented assessment. 18:55 Reassessment: Pt. went to CT. rb1 19:37 General: Appears in no apparent distress. uncomfortable, Behavior is calm, cooperative, jd3 appropriate for age. Pain: Complains of pain in right low back Quality of pain is described as sharp. Neuro: Level of Consciousness is awake, alert, obeys commands, Oriented to person, place, time, situation. Cardiovascular: Denies chest pain, Capillary refill < 3 seconds Patient's skin is warm and dry. Respiratory: Airway is patent Respiratory effort is even, unlabored, Respiratory pattern is regular, symmetrical, Denies cough, shortness of breath. GI: Abdomen is round Abd is soft and non tender X 4 quads. Reports lower abdominal pain, nausea, vomiting. EENT: No signs and/or symptoms were reported regarding the EENT system. Derm: Skin is intact, Skin is dry, Skin is normal, Skin temperature is warm. Musculoskeletal: Circulation, motion, and sensation intact. Range of motion: intact in all extremities. 20:04 Reassessment: No changes from previously documented assessment. Patient and/or family jd3 updated on plan of care and expected duration. Pain level reassessed. pt threw up after PO challenge, provider notified. 21:14 Reassessment: Patient appears in no apparent distress at this time. Patient and/or jd3 family updated on plan of care and expected duration. Pain level reassessed. reporting continued pain, provider notified. 22:17 Reassessment: Patient appears in no apparent distress at this time. Patient and/or jd3 family updated on plan of care and expected duration. Pain level reassessed. Patient is alert, oriented x 3, equal unlabored respirations, skin warm/dry/pink. awaiting admission Patient states feeling better. 23:06 Reassessment: Patient and/or family updated on plan of care and expected duration. Pain jd3 level reassessed. Patient is alert, oriented x 3, equal unlabored respirations, skin warm/dry/pink. report given to Adela LIND. Vital Signs: 17:00 BP 180 / 109; Pulse 96; Resp 17; Temp 100.2(O); Pulse Ox 100% ; Weight 113.4 kg (R); rb1 Height 5 ft. 0 in. (152.40 cm); Pain 10/10; 18:00 BP 133 / 89; Pulse 87; Resp 18; Pulse Ox 100% ; rb1 18:55 rb1 21:15 BP 158 / 89; Pulse 83; Resp 20 S; Temp 99.2(TE); Pulse Ox 100% on R/A; jd3 22:18 BP 148 / 91; Pulse 90; Resp 20 S; Pulse Ox 99% on R/A; jd3 23:07 Pulse 90; Resp 19 S; Pulse Ox 98% on R/A; jd3 17:00 Body Mass Index 48.83 (113.40 kg, 152.40 cm) rb1 18:[address] rb1 ED Course: 17:00 Arm band placed on. rb1 17:00 Patient has correct armband on for positive identification. Bed in low position. Call rb1 light in reach. Side rails up X 1. Pulse ox on. NIBP on. Warm blanket given. 17:06 Patient arrived in ED. rb1 17:07 Herve Abraham PA is PHCP. jmm 17:07 Chadd Harris MD is Attending Physician. jmm 17:11 Triage completed. rb1 17:49 Fela Deras, LELO is Primary Nurse. rb1 18:11 Missed attempt(s): 20 gauge in right antecubital area. Bleeding controlled, band aid ca1 applied, catheter tip intact. 18:22 No provider procedures requiring assistance completed. Inserted saline lock: 22 gauge ls4 in right antecubital area, using aseptic technique. Blood collected. 18:45 Initial lab(s) drawn, by me, sent to lab. First set of blood cultures drawn by me, ls4 Second set of blood cultures drawn by me. 19:00 Report given to LELO Shah. rb1 19:03 CT Abd/Pelvis - IV Contrast Only In Process Unspecified. EDMS 19:57 Duc Acuña is Hospitalizing Provider. jmm 23:10 Patient admitted, IV remains in place. jd3 Administered Medications: 18:22 Drug: Valium 5 mg Route: IVP; Site: right antecubital; ls4 18:38 Follow up: Response: No adverse reaction; No change in condition ls4 18:37 Drug: Reglan 20 mg Route: IVP; Site: right antecubital; ls4 19:30 Follow up: Response: No adverse reaction jd3 18:38 Drug: NS 0.9% 1000 ml Route: IV; Rate: 1 bolus; Site: right antecubital; ls4 19:30 Follow up: Response: No adverse reaction; IV Status: Completed infusion; IV Intake: jd3 1000ml 18:56 Drug: fentaNYL (PF) 25 mcg Route: IVP; Site: right antecubital; rb1 19:50 Follow up: Response: No adverse reaction; RASS: Alert and Calm (0) jd3 18:56 Drug: Tylenol 1000 mg Route: PO; rb1 19:50 Follow up: Response: No adverse reaction jd3 20:03 Drug: Zofran (Ondansetron) 4 mg Route: IVP; Site: right antecubital; jd3 21:00 Follow up: Response: No adverse reaction jd3 21:15 Drug: fentaNYL (PF) 50 mcg Route: IVP; Site: right antecubital; jd3 22:15 Follow up: Response: No adverse reaction; RASS: Alert and Calm (0) jd3 21:46 Drug: LevaQUIN 750 mg Volume: 150 ml; Route: IVPB; Infused Over: 90 mins; Site: right jd3 antecubital; 23:35 Follow up: Response: No adverse reaction; IV Status: Completed infusion jd3 Intake: 19:30 IV: 1000ml; Total: 1000ml. jd3 Outcome: 19:58 Decision to Hospitalize by Provider. caitlin 23:10 Admitted to Med/surg accompanied by tech, via stretcher, room 230. jd3 23:10 Condition: stable 23:10 Instructed on the need for admit, Demonstrated understanding of instructions. 23:36 Patient left the ED. jd3 Signatures: Dispatcher [employer] EDMS Herve Abraham PA PA Fela Baron, RN RN rb1 Julius Lay RN RN jYoselin Manzo, RN RN ls4 Mirtha Dean RN RN ca1 Corrections: (The following items were deleted from the chart) 19:01 17:00 Temp 100.2F Oral; 113.4 kg Reported; Height 5 ft. 0 in.; BMI: 48.8; Pain 10/10; rb1 rb1 19:02 19:00 Initial Sepsis Screen: Does the patient meet any 2 criteria? rb1 rb1
[2020-02-29] MEDS ORDERED: ONDANSETRON 4 MG/2 ML VIAL ONE (20:08)
[2020-02-29] MEDS ORDERED: Levofloxacin 750mg IV 750 MG/150 ML BAG IV ONE (20:09)
--- NOTE | 2020-02-29 22:03 | P.HP ---
Certification for Inpatient Patient admitted to: Inpatient With expected LOS: >2 Midnights Practitioner: I am a practitioner with admitting privileges, knowledge of patient current condition, hospital course, and medical plan of care. Services: Services provided to patient in accordance with Admission requirements found in Title 42 Section 412.3 of the Code of Federal Regulations Patient History Date of Service: 02/29/20 Reason for admission: Fever, chills and vomiting History of Present Illness: 39-year-old woman with a history of seizure disorder, history of occipital CVA, nephrolithiasis, prior history renal stent presented the ED with a complaint of nausea and vomiting, bilateral flank pain, fever and chills.0 The patient was in the emergency department yesterday, diagnosed with UTI and discharged with Macrobid. She stated she could not hold the Macrobid in due to vomiting. CT abdomen and pelvis done in the ED report right pyelonephritis incorporating a renal cyst. She meets sepsis criteria with leukocytosis and fever. Pro calcitonin elevated. Patient is admitted for further management. Allergies cefaclor [From Ceclor] Allergy (Mild, Verified 03/19/17 01:59) Hives Sulfa (Sulfonamide Antibiotics) Allergy (Unverified 03/23/17 18:22) Unknown Sulfa (Sulfon Allergy (Uncoded 03/19/17 01:59) Unknown SULFA (SULFONAMIDES) Allergy (Uncoded 03/19/17 01:59) Itching/Hives/Rash Home Medications: Aspirin [Aspirin EC 81 MG] 81 mg PO DAILY #30 tablet. 03/18/17 Atorvastatin Calcium [Lipitor] 80 mg PO BEDTIME #30 tablet 03/18/17 Folic Acid 1 mg PO DAILY #30 tablet 03/18/17 Phenytoin Sodium Extended [Dilantin] 300 mg PO BEDTIME #90 capsule 03/18/17 Topiramate [Topamax*] 25 mg PO BID #60 tab 03/18/17 cloNIDine HCL [Catapres*] 0.1 mg PO TID PRN #90 tab 03/18/17 lisinopriL [Prinivil*] 20 mg PO DAILY #30 tab 03/18/17 Amlodipine [Norvasc*] 5 mg PO DAILY #30 tab 03/22/17 Hydralazine [Apresoline*] 25 mg PO TID #90 tab 08/02/17 - Past Medical/Surgical History Diabetic: No -: Hypertension -: Seizure -: ADD/ADHD -: Right Rotator cuff tear -: CVA left occipital -: Cholecystectomy -: -: Kidney stents - Family History Mother -: Cancer (Breast) - Social History Smoking Status: Current every day smoker Alcohol use: Yes CD- Drugs: Yes Caffeine use: No Review of Systems Other: Except as documented, all other systems reviewed and negative. Physical Examination - Physical Exam General: Alert, Mild distress (Due to pain) HEENT: Normocephalic, Mucous membr. moist/pink, Sclerae nonicteric Neck: Supple, JVD not distended Respiratory: Clear to auscultation bilaterally, Normal air movement Cardiovascular: No edema, Regular rate/rhythm, Normal S1 S2 Capillary refill: <2 Seconds Gastrointestinal: Normal bowel sounds, Soft and benign, Non-distended, Tenderness (Bilateral flank.) Musculoskeletal: No swelling, No erythema Integumentary: No rashes Neurological: Normal strength at 5/5 x4 extr, Cranial nerves 3-12 intact - Studies Laboratory Data (last 24 hrs) 02/29/20 18:22: WBC 17.5 H D, Hgb 15.3 H, Hct 46.2 H, Plt Count 221 02/29/20 18:22: Sodium 138, Potassium 3.4 L, BUN 7, Creatinine 0.91, Glucose 89, Total Bilirubin 1.4 H, AST 156 H D, ALT 284 H D, Alkaline Phosphatase 210 H, Lipase 99 Assessment and Plan - Problems (Diagnosis) (1) Acute pyelonephritis Current Visit: Yes Status: Acute (2) Renal cyst Current Visit: Yes Status: Acute (3) Nicotine dependence Current Visit: No Status: Acute Qualifiers: Nicotine product type: cigarettes Substance use status: uncomplicated Qualified Code(s): F17.210 - Nicotine dependence, cigarettes, uncomplicated (4) Hypertension Current Visit: No Status: Chronic Qualifiers: Hypertension type: essential hypertension Qualified Code(s): I10 - Essential (primary) hypertension (5) Seizure disorder Current Visit: No Status: Chronic (6) Elevated LFTs Current Visit: Yes Status: Acute - Plan Admit patient to the medical floor. Sepsis protocol initiated. Blood cultures and urine culture obtained in the ED. Aggressive antibiotic therapy with IV meropenem and vancomycin. IV hydration with normal saline Continue home antiseizure medications. Serial renal ultrasound to monitor for renal abscess. - Advance Directives Does patient have a Living Will: No Does patient have a Durable POA for Healthcare: No
[2020-03-01] MEDS ORDERED: VANCOMYCIN/NS 1 gm 1 GM/250 ML BAG IVPB SCH (00:15)
[2020-03-01] MEDS ORDERED: MORPHINE 2 MG/ML SYR IV PRN (00:15)
[2020-03-01 00:19] VITALS: BMI 42.9
[2020-03-01] MEDS: NA CHLORIDE 0.9% 1,000 ML IV SCH ×4 (00:38→23:07)
[2020-03-01] MEDS: ONDANSETRON 4 MG/2 ML VIAL IV PRN ×5 (00:38→20:22)
[2020-03-01] MEDS ORDERED: Meropenem 500 MG VIAL IV SCH (01:00)
[2020-03-01] MEDS ORDERED: VANCOMYCIN 1 GM/VIAL ONE (01:18)
[2020-03-01] MEDS ORDERED: NA CHLORIDE 0.9% 500 ML ONE (01:21)
[2020-03-01] MEDS: VANCOMYCIN 1.75 GM in NA CHLORIDE 0.9% 500 ML IVPB SCH ×2 (01:36→14:06)
[2020-03-01] MEDS ORDERED: MORPHINE 2 MG/ML SYR IV ONE (02:01)
[2020-03-01] MEDS: MORPHINE 4 MG/ML SYR IV PRN ×5 (05:17→20:22)
[2020-03-01 06:22] LABS: Absolute Lymphocytes (CBC) 0.9 K/uL (0.7-4.9); Basophils % 0.7 % (0-1.3); Hematocrit 39.5 % (36.0-45.0); Lymphocytes % 8.2 % (15.3-44.8); MPV 9.1 fL (7.6-11.3); RBC Red Blood Cell Count 4.51 M/uL (3.86-4.86)
[2020-03-01 06:47] LABS: ALT/SGPT 193 U/L (12-78); AST/SGOT 75 U/L (15-37); Albumin 2.6 g/dL (3.4-5.0); Alkaline Phosphatase 181 U/L (45-117); BUN Blood Urea Nitrogen 5 mg/dL (7-18); Bicarbonate 26 mmol/L (21-32); Bilirubin Total 1.2 mg/dL (0.2-1.0); Glucose Level 96 mg/dL (74-106); Magnesium 1.7 mg/dL (1.8-2.4); Phosphorus 1.5 mg/dL (2.5-4.9); Potassium 3.2 mmol/L (3.5-5.1); Protein, Total 6.2 g/dL (6.4-8.2); Sodium Level 138 mmol/L (136-145)
[2020-03-01] MEDS: ENOXAPARIN 40 MG/0.4 ML SQ SCH (08:35)
--- NOTE | 2020-03-01 08:49 | P.PN ---
Subjective Date of Service: 03/01/20 Chief Complaint: Fever, chills and vomiting Patient complaining of persistent bilateral flank pain. Blood pressure is also elevated. WBC count is trending down. Physical Examination - Vital Signs Temperature: 98.0 F Blood Pressure: 172/101 Pulse: 84 Respirations: 18 Pulse Ox (%): 98 - Physical Exam General: Alert, Mild distress (Due to pain) HEENT: Mucous membr. moist/pink Respiratory: Clear to auscultation bilaterally, Normal air movement Cardiovascular: No edema, Regular rate/rhythm, Normal S1 S2 Gastrointestinal: Normal bowel sounds, Soft and benign, Other (Bilateral flank tenderness, worse on the right.) Musculoskeletal: No swelling, No tenderness Integumentary: No rashes Neurological: Normal strength at 5/5 x4 extr, Cranial nerves 3-12 intact - Studies Laboratory Data (last 24 hrs) 02/29/20 18:22: WBC 17.5 H D, Hgb 15.3 H, Hct 46.2 H, Plt Count 221 02/29/20 18:22: Sodium 138, Potassium 3.4 L, BUN 7, Creatinine 0.91, Glucose 89, Total Bilirubin 1.4 H, AST 156 H D, ALT 284 H D, Alkaline Phosphatase 210 H, Lipase 99 Assessment And Plan - Current Problems (Diagnosis) (1) Acute pyelonephritis Current Visit: Yes Status: Acute (2) Renal cyst Current Visit: Yes Status: Acute (3) Nicotine dependence Current Visit: No Status: Acute Qualifiers: Nicotine product type: cigarettes Substance use status: uncomplicated Qualified Code(s): F17.210 - Nicotine dependence, cigarettes, uncomplicated (4) Hypertension Current Visit: No Status: Chronic Qualifiers: Hypertension type: essential hypertension Qualified Code(s): I10 - Essential (primary) hypertension (5) Seizure disorder Current Visit: No Status: Chronic (6) Elevated LFTs Current Visit: Yes Status: Acute - Plan Continue current antibiotics. Follow blood cultures and urine culture. IV hydration with normal saline Continue home antiseizure medications. Pain medication as needed. Consult infectious disease. Serial renal ultrasound to monitor for renal abscess. Hydralazine IV p.r.n. for BP spikes
[2020-03-01] MEDS: Meropenem 500 MG in NA CHLORIDE 0.9% 100 ML IV SCH ×2 (10:12→18:25)
[2020-03-01] MEDS: HYDRALAZINE HCL 20 MG/ML VIAL IV PRN (16:40)
[2020-03-01] MEDS ORDERED: Meropenem 500 MG in NA CHLORIDE 0.9% 100 ML IV SCH (17:00)
[2020-03-01] MEDS: PHENYTOIN ER 100 MG CAP PO SCH (20:22)
[2020-03-02] MEDS: MORPHINE 4 MG/ML SYR IV PRN ×3 (00:16→08:22)
[2020-03-02] MEDS: VANCOMYCIN 1.75 GM in NA CHLORIDE 0.9% 500 ML IVPB SCH (00:16)
[2020-03-02] MEDS: ACETAMINOPHEN 500 MG TAB PO PRN ×5 (00:17→17:04)
[2020-03-02] MEDS: ONDANSETRON 4 MG/2 ML VIAL IV PRN ×4 (00:17→20:37)
[2020-03-02] MEDS: Meropenem 500 MG in NA CHLORIDE 0.9% 100 ML IV SCH ×3 (00:20→16:00)
[2020-03-02] MEDS: HYDRALAZINE HCL 20 MG/ML VIAL IV PRN ×3 (01:16→16:34)
[2020-03-02 06:07] LABS: Basophils % 0.8 % (0-1.3); Hematocrit 40.3 % (36.0-45.0); Lymphocytes % 12.3 % (15.3-44.8); MPV 8.9 fL (7.6-11.3); RBC Red Blood Cell Count 4.62 M/uL (3.86-4.86)
[2020-03-02] MEDS: NA CHLORIDE 0.9% 1,000 ML IV SCH ×2 (06:15→16:12)
[2020-03-02 07:00] LABS: BUN Blood Urea Nitrogen 4 mg/dL (7-18); Bicarbonate 24 mmol/L (21-32); Glucose Level 95 mg/dL (74-106); Phosphorus 1.8 mg/dL (2.5-4.9); Sodium Level 138 mmol/L (136-145)
[2020-03-02] MEDS: POTASS/SODIUM PHOSPHATE 1 PKT POWD.PACK PO SCH ×3 (07:00→08:23)
[2020-03-02 07:04] LABS: Magnesium 1.8 mg/dL (1.8-2.4); Potassium 3.5 mmol/L (3.5-5.1)
[2020-03-02] MEDS ORDERED: MAGNESIUM SULFATE 1 gm IVPB 1 GM/100 ML BAG IV ONE (08:00)
[2020-03-02] MEDS: ENOXAPARIN 40 MG/0.4 ML SQ SCH (08:24)
[2020-03-02] MEDS ORDERED: POTASSIUM CL SA 10 MEQ TAB PO ONE (09:00)
[2020-03-02] MEDS: FENTANYL CITR 100 MCG/2 ML IV PRN ×3 (10:10→20:36)
[2020-03-02] MEDS: PROMETHAZINE INJ 25 MG/ML AMP IV PRN ×3 (10:11→22:01)
[2020-03-02] MEDS: LORazepam 2 MG/ML VIAL IV PRN ×2 (10:24→17:03)
--- NOTE | 2020-03-02 14:23 | P.CNS ---
Date of Consult: 03/02/20 Subjective: Patient is a 39-year-old female who presented to the ED with nausea, vomiting, fever and chills, and bilateral flank pain, right greater than left. Patient was seen in the ED yesterday 80, diagnosed with the UTI and was discharged home with Macrobid. Patient found to have pyelonephritis which I have been consulted for. Patient examined at bedside. Patient reports taking 1 dose of Macrobid and vomiting. Past medical/surgical history: Hypertension, seizure, ABD/80 HD, right rotator cuff tear, CVA, cholecystectomy, , kidney stents Family history: Mother with breast cancer Social history: Current everyday smoker, reports smoking 1/2 PPD for the past 5 years Allergies cefaclor [From Ceclor] Allergy (Mild, Verified 03/01/20 00:20) Hives Sulfa (Sulfonamide Antibiotics) Allergy (Verified 03/01/20 00:20) Unknown Active Medications Acetaminophen (Tylenol -Extra Strength) 500 mg PO Q4HP PRN PRN Reason: TEMP > 100' F Stop: 03/31/20 00:16 Last Admin: 03/02/20 12:50 Dose: 500 mg Documented by: Enoxaparin Sodium (Lovenox 40 Mg Inj) 40 mg SQ DAILY [facility] Stop: 03/31/20 09:01 Last Admin: 03/02/20 08:24 Dose: 40 mg Documented by: Fentanyl Citrate (Sublimaze) 25 mcg IV Q4H PRN PRN Reason: Pain scale 8-10 (Severe) Stop: 04/01/20 09:50 Last Admin: 03/02/20 10:10 Dose: 25 mcg Documented by: Hydralazine HCl (Apresoline) 10 mg IV Q6HP PRN PRN Reason: SBP >160 Stop: 03/31/20 07:38 Last Admin: 03/02/20 08:34 Dose: 10 mg Documented by: Sodium Chloride (Ns 1000 Ml Ivbag) 1,000 mls @ 100 mls/hr IV .Q10H PANCHO Stop: 03/31/20 00:16 Last Admin: 03/02/20 06:15 Dose: Not Given Documented by: Meropenem 500 mg/ Sodium (Chloride) 100 mls @ 100 mls/hr IV Q8HR PANCHO Stop: 03/31/20 10:01 Last Admin: 03/02/20 08:00 Dose: 100 mls Documented by: Lorazepam (Ativan) 0.5 mg IV TID PRN PRN Reason: AGITATION Stop: 04/01/20 14:01 Last Admin: 03/02/20 10:24 Dose: 0.5 mg Documented by: Metoprolol Tartrate (Lopressor) 25 mg PO BID 6AM 6PM PANCHO Stop: 04/01/20 18:01 Ondansetron HCl (Zofran) 4 mg IV Q4HP PRN PRN Reason: NAUSEA / VOMITING Stop: 03/31/20 12:09 Last Admin: 03/02/20 08:23 Dose: 4 mg Documented by: Phenytoin Sodium (Dilantin Er Cap) 300 mg PO BEDTIME PANCHO Stop: 03/31/20 21:01 Last Admin: 03/01/20 20:22 Dose: 300 mg Documented by: Promethazine HCl (Phenergan) 12.5 mg IV Q4H PRN PRN Reason: NAUSEA / VOMITING Stop: 04/01/20 09:53 Last Admin: 03/02/20 10:11 Dose: 12.5 mg Documented by: Sodium Chloride (Normal Saline Flush) 10 ml IV BID PANCHO Stop: 03/31/20 09:01 Last Admin: 03/02/20 08:26 Dose: 10 ml Documented by: ROS: CV: Denies chest pain RESP: denies shortness of breath and cough : Reports bilateral flank pain right greater than left GI: Reports nausea and vomiting, denies diarrhea Objective: Temp Pulse Resp BP Pulse Ox 97.7 F 83 18 154/80 H 94 03/02/20 07:00 03/02/20 07:00 03/02/20 10:40 03/02/20 12:56 03/02/20 10:40 Labs: Sodium 138, potassium 3.5, BUN 4, creatinine 0.58, albumin 2.6, WBC 8.2, hemoglobin 13.9, hematocrit 40.3 Abd/Pelvis CT 02/28: EXAM DESCRIPTION: CT - Abdomen Pelvis W Contrast - 02/29/2020 7:02 pm CLINICAL HISTORY: flank pain, vomiting COMPARISON: Abdomen Pelvis W Contrast dated 08/19/2019; Stone Protocol dated 02/28/2020 TECHNIQUE: Biphasic, helical CT imaging of the abdomen and pelvis was performed following 100 ml non-ionic IV contrast. No oral contrast administered. All CT scans are performed using dose optimization technique as appropriate and may include automated exposure control or mA/KV adjustment according to patient size. FINDINGS: No suspicious findings in the lung bases. The liver, spleen, and pancreas show no suspicious findings. Cholecystectomy clips are present. No biliary tree dilatation. No obstructing calculi are present. Punctate nonobstructing calculi are again noted. No left-sided hydronephrosis. Small left-sided renal cysts are similar to comparison. Patient has a right-sided renal cyst. In the lower pole lateral right kidney there is a 2-2.5 centimeter area of decreased attenuation and diminished enhancement. The patient had a 13 millimeter cyst in this region in 2019. Current findings believed to be pyelonephritis of the right kidney incorporating this cyst. There is fluid and stranding in the perinephric fat. No solid mass lesions seen. No bladder abnormalities. No adrenal abnormalities. Uterus and ovaries show no suspicious findings. No dilated bowel loops or bowel wall thickening. No free air, free fluid or pneumatosis. No hernia, mass or bulky lymphadenopathy. No suspicious bony findings. IMPRESSION: Pyelonephritis findings are evident in the lower pole of the right kidney surrounding a small cyst. Fluid in stranding are present in the right- side perinephric fat. Given the presence of a cyst in this location of infection, patient should be monitored to assure no development of renal abscess. No obstructing calculi seen. No right-sided hydronephrosis. ROS: General: Awake, alert CV: S1,S2 RESP: Good breath sounds ABD: Bowel sounds present, generalized tenderness on palpation : Severe CVA tenderness R>L Extremities: No edema Assessment and plan: Pyelonephritis Sepsis, leukocytosis, elevated procalcitonin Urine cultures show >100,000 mixed anel Blood cultures show no growth to date Protein calorie malnourished Currently on IV Merrem, recommend to continue for total of 2 weeks Will continue to monitor Thank you for consult Patient discussed with Dr. Mcneil
[2020-03-02] MEDS: METOPROLOL TAR 25 MG TAB PO SCH (17:03)
--- NOTE | 2020-03-02 18:22 | P.PN ---
Subjective Date of Service: 03/02/20 Chief Complaint: Fever, chills and vomiting Subjective: Other (Increase anxiety.) Physical Examination - Vital Signs Temperature: 97.7 F Blood Pressure: 158/92 Pulse: 64 Respirations: 18 Pulse Ox (%): 96 - Physical Exam General: Alert, Other (Increase anxiety) HEENT: Atraumatic Neck: Supple Respiratory: Clear to auscultation bilaterally, Normal air movement Cardiovascular: Normal pulses, Regular rate/rhythm Gastrointestinal: Normal bowel sounds, No masses, No rebound, No guarding Neurological: Normal speech, Normal strength at 5/5 x4 extr, Normal tone, Normal affect - Studies Medications List Reviewed: Yes Assessment & Plan Discharge Plan: Home Plan to discharge in: 24 Hours Physician Review Additional Text: Impression: Right pyelonephritis Seizure disorder Hypertension Plan: Right pyelonephritis: Spoke with infectious disease. The recommend IV antibiotic therapy for 2 weeks. Patient currently on meropenem. Will discuss with patient tomorrow. Will arrange for PICC line. Will also arrange for IV antibiotic therapy as an outpatient. Seizure disorder: Continue home medication Hypertension: Blood pressure elevated. Suspect hypertension. Will add medication. Will adjust accordingly. Time Spent Managing Pts Care (In Minutes): 55
[2020-03-02] MEDS: PHENYTOIN ER 100 MG CAP PO SCH (20:30)
[2020-03-03] MEDS: Meropenem 500 MG in NA CHLORIDE 0.9% 100 ML IV SCH ×3 (00:20→20:28)
[2020-03-03] MEDS: HYDRALAZINE HCL 20 MG/ML VIAL IV PRN ×2 (00:55→08:42)
[2020-03-03] MEDS: FENTANYL CITR 100 MCG/2 ML IV PRN ×5 (01:03→21:18)
[2020-03-03] MEDS: LORazepam 2 MG/ML VIAL IV PRN ×2 (01:43→16:21)
[2020-03-03] MEDS: NA CHLORIDE 0.9% 1,000 ML IV SCH ×2 (02:15→12:15)
[2020-03-03] MEDS: METOPROLOL TAR 25 MG TAB PO SCH ×2 (06:13→16:36)
[2020-03-03 06:17] LABS: BUN Blood Urea Nitrogen 4 mg/dL (7-18); Bicarbonate 27 mmol/L (21-32); Glucose Level 96 mg/dL (74-106); Magnesium 1.9 mg/dL (1.8-2.4); Phosphorus 1.8 mg/dL (2.5-4.9); Potassium 3.4 mmol/L (3.5-5.1); Sodium Level 140 mmol/L (136-145)
[2020-03-03] MEDS: PROMETHAZINE INJ 25 MG/ML AMP IV PRN (07:30)
[2020-03-03] MEDS: ENOXAPARIN 40 MG/0.4 ML SQ SCH (08:41)
[2020-03-03] MEDS: POTASS/SODIUM PHOSPHATE 1 PKT POWD.PACK PO SCH ×2 (08:41→08:42)
[2020-03-03] MEDS ORDERED: POTASSIUM CL SA 10 MEQ TAB PO ONE (09:00)
--- NOTE | 2020-03-03 10:00 | P.PN ---
Date of Service: 03/03/20 Subjective: Patient is a 39-year-old female who presented to the ED with nausea, vomiting, fever and chills, and bilateral flank pain, right greater than left. Patient was seen in the ED yesterday 80, diagnosed with the UTI and was discharged home with Macrobid. Patient found to have pyelonephritis which I have been consulted for. Patient examined at bedside. Patient reports taking 1 dose of Macrobid and vomiting. Past medical/surgical history: Hypertension, seizure, ABD/80 HD, right rotator cuff tear, CVA, cholecystectomy, , kidney stents Family history: Mother with breast cancer Social history: Current everyday smoker, reports smoking 1/2 PPD for the past 5 years Allergies cefaclor [From Ceclor] Allergy (Mild, Verified 03/01/20 00:20) Hives Sulfa (Sulfonamide Antibiotics) Allergy (Verified 03/01/20 00:20) Unknown Active Medications Acetaminophen (Tylenol -Extra Strength) 500 mg PO Q4HP PRN PRN Reason: TEMP > 100' F Stop: 03/31/20 00:16 Last Admin: 03/02/20 12:50 Dose: 500 mg Documented by: Enoxaparin Sodium (Lovenox 40 Mg Inj) 40 mg SQ DAILY [facility] Stop: 03/31/20 09:01 Last Admin: 03/02/20 08:24 Dose: 40 mg Documented by: Fentanyl Citrate (Sublimaze) 25 mcg IV Q4H PRN PRN Reason: Pain scale 8-10 (Severe) Stop: 04/01/20 09:50 Last Admin: 03/02/20 10:10 Dose: 25 mcg Documented by: Hydralazine HCl (Apresoline) 10 mg IV Q6HP PRN PRN Reason: SBP >160 Stop: 03/31/20 07:38 Last Admin: 03/02/20 08:34 Dose: 10 mg Documented by: Sodium Chloride (Ns 1000 Ml Ivbag) 1,000 mls @ 100 mls/hr IV .Q10H PANCHO Stop: 03/31/20 00:16 Last Admin: 03/02/20 06:15 Dose: Not Given Documented by: Meropenem 500 mg/ Sodium (Chloride) 100 mls @ 100 mls/hr IV Q8HR PANCHO Stop: 03/31/20 10:01 Last Admin: 03/02/20 08:00 Dose: 100 mls Documented by: Lorazepam (Ativan) 0.5 mg IV TID PRN PRN Reason: AGITATION Stop: 04/01/20 14:01 Last Admin: 03/02/20 10:24 Dose: 0.5 mg Documented by: Metoprolol Tartrate (Lopressor) 25 mg PO BID 6AM 6PM [facility] Stop: 04/01/20 18:01 Ondansetron HCl (Zofran) 4 mg IV Q4HP PRN PRN Reason: NAUSEA / VOMITING Stop: 03/31/20 12:09 Last Admin: 03/02/20 08:23 Dose: 4 mg Documented by: Phenytoin Sodium (Dilantin Er Cap) 300 mg PO BEDTIME [facility]CHO Stop: 03/31/20 21:01 Last Admin: 03/01/20 20:22 Dose: 300 mg Documented by: Promethazine HCl (Phenergan) 12.5 mg IV Q4H PRN PRN Reason: NAUSEA / VOMITING Stop: 04/01/20 09:53 Last Admin: 03/02/20 10:11 Dose: 12.5 mg Documented by: Sodium Chloride (Normal Saline Flush) 10 ml IV BID [facility] Stop: 03/31/20 09:01 Last Admin: 03/02/20 08:26 Dose: 10 ml Documented by: ROS: CV: Denies chest pain RESP: denies shortness of breath and cough : Reports bilateral flank pain right greater than left GI: Reports nausea and vomiting, denies diarrhea Objective: Temp Pulse Resp BP Pulse Ox 97.1 F 90 18 192/104 H 95 03/03/20 04:00 03/03/20 06:13 03/03/20 09:57 03/03/20 06:13 03/03/20 09:57 Labs: Sodium 140, potassium 3.4, BUN 4, creatinine 0.53, albumin 2.6, WBC 8.2, hemoglobin 13.9, hematocrit 40.3 Abd/Pelvis CT 02/28: EXAM DESCRIPTION: CT - Abdomen Pelvis W Contrast - 02/29/2020 7:02 pm CLINICAL HISTORY: flank pain, vomiting COMPARISON: Abdomen Pelvis W Contrast dated 08/19/2019; [facility] Protocol dated 02/28/2020 TECHNIQUE: Biphasic, helical CT imaging of the abdomen and pelvis was performed following 100 ml non-ionic IV contrast. No oral contrast administered. All CT scans are performed using dose optimization technique as appropriate and may include automated exposure control or mA/KV adjustment according to patient size. FINDINGS: No suspicious findings in the lung bases. The liver, spleen, and pancreas show no suspicious findings. Cholecystectomy clips are present. No biliary tree dilatation. No obstructing calculi are present. Punctate nonobstructing calculi are again noted. No left-sided hydronephrosis. Small left-sided renal cysts are similar to comparison. Patient has a right-sided renal cyst. In the lower pole lateral right kidney there is a 2-2.5 centimeter area of decreased attenuation and diminished enhancement. The patient had a 13 millimeter cyst in this region in 2019. Current findings believed to be pyelonephritis of the right kidney incorporating this cyst. There is fluid and stranding in the perinephric fat. No solid mass lesions seen. No bladder abnormalities. No adrenal abnormalities. Uterus and ovaries show no suspicious findings. No dilated bowel loops or bowel wall thickening. No free air, free fluid or pneumatosis. No hernia, mass or bulky lymphadenopathy. No suspicious bony findings. IMPRESSION: Pyelonephritis findings are evident in the lower pole of the right kidney surrounding a small cyst. Fluid in stranding are present in the right- side perinephric fat. Given the presence of a cyst in this location of infection, patient should be monitored to assure no development of renal abscess. No obstructing calculi seen. No right-sided hydronephrosis. ROS: General: Lying in bed on side, facial grimacing CV: S1,S2 RESP: Good breath sounds ABD: Bowel sounds present, generalized tenderness on palpation : Severe CVA tenderness R>L Extremities: No edema Assessment and plan: Pyelonephritis Sepsis, leukocytosis, elevated procalcitonin Urine cultures show >100,000 mixed anel Blood cultures show no growth to date Protein calorie malnourished Currently on IV Merrem, recommend to continue for total of 2 weeks Will continue to monitor Patient discussed with Dr. Mcneil
[2020-03-03] MEDS ORDERED: MORPHINE 4 MG/ML SYR IV PRN (12:22)
[2020-03-03] MEDS ORDERED: HYDROCODONE/APAP 10/325 TAB PO PRN (12:22)
[2020-03-03] MEDS: ONDANSETRON 4 MG/2 ML VIAL IV PRN (12:31)
--- NOTE | 2020-03-03 15:25 | P.PN ---
Subjective Date of Service: 03/03/20 Chief Complaint: Fever, chills and vomiting Subjective: New changes (Complaining of headache) Review of Systems General: Other (Headache), As per HPI Eyes: As per HPI ENT: Unremarkable Respiratory: Unremarkable Cardiovascular: Unremarkable Gastrointestinal: Unremarkable Genitourinary: Other (Bilateral flank pain 7/10) Musculoskeletal: Unremarkable Neurological: Unremarkable Physical Examination - Vital Signs Temperature: 98.0 F Blood Pressure: 188/91 Pulse: 74 Respirations: 18 Pulse Ox (%): 95 - Physical Exam General: Alert, In no apparent distress, Oriented x3 HEENT: Atraumatic, Normocephalic, PERRLA Neck: Supple, Other (Trachea midline) Respiratory: Clear to auscultation bilaterally, Normal air movement Cardiovascular: No edema, Normal pulses, Regular rate/rhythm Capillary refill: <2 Seconds Gastrointestinal: Normal bowel sounds, Soft and benign, Non-distended Musculoskeletal: No clubbing, No swelling, No contractures Integumentary: No rashes, No breakdown, No significant lesion Neurological: Normal gait, Normal speech, Normal strength at 5/5 x4 extr, Normal tone - Studies Medications List Reviewed: Yes Assessment And Plan - Plan Impression: Right pyelonephritis Seizure disorder Hypertension Headache Plan: Right pyelonephritis: ID recommends IV antibiotic therapy for 2 weeks. Patient currently on meropenem. A PICC line in place. ID recommending IV meropenem for 2 weeks. Will also arrange for IV antibiotic therapy as an outpatient. Patient was complaining of inadequate pain control. Fentanyl was discontinued and patient was started on IV morphine 4 mg q.4 hr and hydrocodone 10/325 mg q.6 hr. Patient did not tolerate IV morphine. Complained of headache after morphine. Morphine was discontinued. Seizure disorder: Continue home medication. No seizures so far. Hypertension: Blood pressure elevated. Suspect hypertension. Complaining of migraine today which may be affecting blood pressure as well. Continue metoprolol 25 mg b.i.d.. Continue hydralazine 10 mg q.6 p.r.n. Will continue to adjust accordingly. Headache: Patient complaining of a 10/10 headache. States that she believes the morphine is causing it. Will discontinue morphine. Treat with acetaminophen 500 mg q.4 hr. Discharge Plan: Home Plan to discharge in: 24 Hours - Code Status/Comfort Care Code Status Assessed: Yes Physician Review Additional Text: Impression: Right pyelonephritis Seizure disorder Hypertension Plan: Right pyelonephritis: Spoke with infectious disease. The recommend IV antibiotic therapy for 2 weeks. Patient currently on meropenem. Will discuss with patient tomorrow. Will arrange for PICC line. Will also arrange for IV antibiotic therapy as an outpatient. Seizure disorder: Continue home medication Hypertension: Blood pressure elevated. Suspect hypertension. Will add medication. Will adjust accordingly. Time Spent Managing PTS Care (In Minutes): 45
--- NOTE | 2020-03-03 17:36 | P.CNS ---
Date of Consult: 03/03/20 Called as the patient needs a new PCP. She has seen me in the past. The patient has been in the hospital for a UTI/Plyenephritis. Her stay has been complicated by migranes for most of the duration of her stay. The patient has been getting a lot of narcotics. Which decreases her migraine pain from 10/10 to 8/10. Does do a very good job on her Costovertebral angle pain 10 to 2/10. Her headache pain increases back to 10 after 2 hours. She is nauseated as well. She has been experiencing headaches since she had a cva in 2017. Like most migraine suffers she downplays her symptoms. However her Midas headache score is 74. Indicating class 4 or severe disability. 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 1. Pylenepritis. 2. Status migranosis. 3. History of CVA 4. HTN 5. Seizure disorder. Will continue with the current care. Would hold the narcotics and start the patient on dedicated migrane medications. Will start her on iv fluids. Sumatriptan, Phenergan and NSAID therapy. Will consider oxygen. However at this time would like to start the patient on overnight pulse ox therapy She may also have sleep apnea. (Her bp is very refractory). Will consider starting her on topirimate when she is feeling better she does need a migraine prophyl actic.
[2020-03-03] MEDS ORDERED: PROMETHAZINE INJ 25 MG/ML AMP IV PRN (18:00)
[2020-03-03] MEDS: D5 0.45 NS 1,000 ML IV SCH (18:05)
[2020-03-03] MEDS: SUMATRIPTAN SUCCI 50 MG TAB PO PRN (18:06)
[2020-03-03] MEDS: KETOROLAC 30 MG/ML INJ IV PRN (20:15)
[2020-03-03] MEDS: PHENYTOIN ER 100 MG CAP PO SCH (20:28)
[2020-03-03] MEDS ORDERED: DICLOFENAC SOD D.R. 75 MG TAB PO SCH (21:00)
[2020-03-04] MEDS: FENTANYL CITR 100 MCG/2 ML IV PRN ×2 (01:18→05:31)
[2020-03-04] MEDS: SUMATRIPTAN SUCCI 50 MG TAB PO PRN ×2 (01:22→10:19)
[2020-03-04] MEDS: HYDRALAZINE HCL 20 MG/ML VIAL IV PRN ×2 (01:26→12:34)
[2020-03-04] MEDS ORDERED: LORazepam 2 MG/ML VIAL IV ONE (01:56)
[2020-03-04] MEDS: METOPROLOL TAR 25 MG TAB PO SCH (05:32)
[2020-03-04 06:02] LABS: BUN Blood Urea Nitrogen 10 mg/dL (7-18); Bicarbonate 29 mmol/L (21-32); Glucose Level 143 mg/dL (74-106); Phosphorus 2.3 mg/dL (2.5-4.9); Potassium 3.5 mmol/L (3.5-5.1); Sodium Level 141 mmol/L (136-145)
[2020-03-04] MEDS ORDERED: POTASSIUM PHOS IN 0.9 % NACL 15 MMOL/250 ML BAG IV ONE (08:00)
--- NOTE | 2020-03-04 08:13 | RAD REPORT ---
EXAM DESCRIPTION: XR Chest, 1 View CLINICAL HISTORY: The patient is 39 years old and is Female; picc placement TECHNIQUE: Single view of the chest. COMPARISON: No relevant prior studies available. FINDINGS: Lungs: Unremarkable. No consolidation. Pleural space: Unremarkable. No pneumothorax. Heart: Unremarkable. No cardiomegaly. Mediastinum: Unremarkable. Bones/joints: No acute fracture identified. Tubes, lines and devices: Right PICC line is in the SVC. Upper abdomen: No free air in the visualized upper abdomen. IMPRESSION: Right PICC line is in the SVC. Electronically signed by: Ophelia Lux MD 03/03/2020 6:37 AM CDT Due to temporary technical issues with the PACS/Fluency reporting system, reports are being signed by the in house radiologist without review as a courtesy to ensure prompt reporting. The interpreting r adiologist is fully responsible for the content of the report.
--- NOTE | 2020-03-04 08:37 | P.PN ---
Subjective Date of Service: 03/04/20 Primary Care Provider: José Chief Complaint: Fever, chills and vomiting Subjective: Improving (Patient headache is 1/10) Review of Systems 10-point ROS is otherwise unremarkable Neurological: Other (headache pain ) Physical Examination - Vital Signs Temperature: 97.4 F Blood Pressure: 170/80 Pulse: 95 Respirations: 16 Pulse Ox (%): 96 - Physical Exam General: Alert, In no apparent distress HEENT: Atraumatic, PERRLA, EOMI Neck: Supple, JVD not distended Respiratory: Clear to auscultation bilaterally, Normal air movement Cardiovascular: Regular rate/rhythm, Normal S1 S2 Gastrointestinal: Normal bowel sounds, No tenderness Musculoskeletal: No tenderness Integumentary: No rashes Neurological: Normal speech, Normal tone, Normal affect Lymphatics: No axilla or inguinal lymphadenopathy - Studies Medications List Reviewed: Yes Assessment & Plan - Problems (Diagnosis) (1) Status migrainosus Current Visit: Yes Status: Resolved Plan: Much better controlled. Will add sumatriptan, phenergan and diclofenac to her outpatient treatment (2) Pyelonephritis Current Visit: Yes Status: Acute Plan: She is improving no fever. We could consider switching her to oral medications on discharge. This is of course the decision of her primary physician. (3) Sleep disturbance, unspecified Current Visit: Yes Status: Acute Plan: Was not able to tolerate the pulse ox. However she has non restorative sleep. She gets seizures only in her sleep. Which could be due to hypoxia. She has frequent episodes of waking up with panic. Which is a sign of sleep apnea. Will work her up as an out patient. Will consider an outpt sleep study. With Dr. Whalen. (4) Hypertensive urgency Current Visit: No Status: Acute Plan: Will continue to work with this. The patient blood pressure should improve now that her headache pain is controlled. Discharge Plan: Home Plan to discharge in: 24 Hours Physician Review Additional Text: Impression: Right pyelonephritis Seizure disorder Hypertension Plan: Right pyelonephritis: Spoke with infectious disease. The recommend IV antibiotic therapy for 2 weeks. Patient currently on meropenem. Will discuss with patient tomorrow. Will arrange for PICC line. Will also arrange for IV antibiotic therapy as an outpatient. Seizure disorder: Continue home medication Hypertension: Blood pressure elevated. Suspect hypertension. Will add medication. Will adjust accordingly. Critical Care: No Time Spent Managing Pts Care (In Minutes): 15
[2020-03-04] MEDS: ENOXAPARIN 40 MG/0.4 ML SQ SCH ×2 (08:48→09:00)
[2020-03-04] MEDS: Meropenem 500 MG in NA CHLORIDE 0.9% 100 ML IV SCH (08:48)
[2020-03-04] MEDS: D5 0.45 NS 1,000 ML IV SCH (08:49)
[2020-03-04 08:50] VITALS: O2SAT 94
[2020-03-04] MEDS: KETOROLAC 30 MG/ML INJ IV PRN (10:28)
[2020-03-04] MEDS: LORazepam 2 MG/ML VIAL IV PRN (10:28)
--- NOTE | 2020-03-04 11:11 | P.DS ---
Admission Date: 02/29/20 Discharge Date: 03/04/20 Primary Care Provider: Jatinder Kumar MD Reason for Admission: Fever, chills and vomiting Consultations: Felicitas Kumar Procedures: Nausea vomiting fever chills secondary to pyelonephritis complicated by right renal cyst: Essential hypertension: Migraine: Seizures: Nicotine dependence: Hospital Course: On admission - 39-year-old woman with a history of seizure disorder, history of occipital CVA, nephrolithiasis, prior history renal stent presented the ED with a complaint of nausea and vomiting, bilateral flank pain, fever and chills. The patient was in the emergency department yesterday, diagnosed with UTI and discharged with Macrobid. She stated she could not hold the Macrobid in due to vomiting. CT abdomen and pelvis done in the ED reports right pyelonephritis incorporating a renal cyst. She meets sepsis criteria with leukocytosis and fever. Pro calcitonin elevated. Patient is admitted for further management. Patient was started on IV meropenem. Infectious Disease was consulted. Patient responded well to IV antibiotics and a recommendations of infection disease patient will require 2 weeks of IV antibiotics. Patient has a PICC line in place and case management has made arrangements for IV antibiotic care through home health. On this admission patient was also having difficulty with sleeping and migraine. Pain for pyelonephritis was controlled but patient continued with significant pain from migraine. Dr. Kumar was consulted and the patient will be following with him as PCP. Plan is to have outpatient workup for obstructive sleep apnea with a sleep study. Also she was started on sumatriptan 50 mg p.o. p.r.n.. Currently patient's headache was resolved. Her nausea vomiting have also resolved. She is agreeable to following up with Dr. Kumar as outpatient. Patient's blood pressure was also noted to be elevated. This is likely combination of hypertension and pain. She was start her on metoprolol tartrate 50 mg b.i.d. the which improved her blood pressure. At this time patient is stable. She can be discharged home with home health IV antibiotic therapy. Instructed to follow up with Dr. Kumar as an outpatient for further workup for her sleep apnea and migraines. <Yang Garcia - Last Filed: 03/04/20 11:35> Admission Date: 02/29/20 Discharge Date: 07/15/20 Brief History of Present Illness: 39-year-old female presented with right flank pain. Patient found to have pyelonephritis. Patient admitted for further evaluation and treatment. Hospital Course: Agree with physician ambulance assistant. Case discussed at length. Agree with evaluation, assessment and plan of care. Also discuss with Dr. Kumar whole will fall or her care since the patient will require IV antibiotic therapy. Continue with discharge. IV antibiotic therapy has been arranged. <Erick Gomez - Last Filed: 03/04/20 14:51> Disposition: ME HOME/HOME HEALTH CARE Discharge Condition: GOOD Vital Signs/Physical Exam: Temp Pulse Resp BP Pulse Ox 97.4 F 95 H 16 170/80 H 96 03/04/20 08:37 03/04/20 08:37 03/04/20 08:37 03/04/20 08:37 03/04/20 08:37 General: Alert, In no apparent distress, Oriented x3 HEENT: Atraumatic, Normocephalic, PERRLA Neck: Supple, Other (Trachea midline) Respiratory: Clear to auscultation bilaterally, Normal air movement Cardiovascular: No edema, Normal pulses, Regular rate/rhythm, Normal S1 S2 Capillary refill: <2 Seconds Gastrointestinal: Normal bowel sounds, Soft and benign, Non-distended Musculoskeletal: No swelling, No contractures, No erythema Integumentary: No rashes, No breakdown, No significant lesion Neurological: Normal gait, Normal speech, Normal strength at 5/5 x4 extr, Normal tone Laboratory Data at Discharge: WBC 8.2 K/uL (4.3-10.9) D 03/02/20 05:37 Hgb 13.9 g/dL (12.0-15.0) 03/02/20 05:37 Hct 40.3 % (36.0-45.0) 03/02/20 05:37 Plt Count 208 K/uL (152-406) 03/02/20 05:37 Sodium 141 mmol/L (136-145) 03/04/20 05:33 Potassium 3.5 mmol/L (3.5-5.1) 03/04/20 05:33 BUN 10 mg/dL (7-18) 03/04/20 05:33 Creatinine 0.68 mg/dL (0.55-1.3) 03/04/20 05:33 Glucose 143 mg/dL (74-106) H 03/04/20 05:33 Phosphorus 2.3 mg/dL (2.5-4.9) L 03/04/20 05:33 Magnesium 1.9 mg/dL (1.8-2.4) 03/03/20 05:51 Total Bilirubin 1.2 mg/dL (0.2-1.0) H 03/01/20 05:32 AST 75 U/L (15-37) H 03/01/20 05:32 ALT 193 U/L (12-78) H 03/01/20 05:32 Alkaline Phosphatase 181 U/L (45-117) H 03/01/20 05:32 Lipase 99 U/L (73-393) 02/29/20 18:22 <Yang Garcia - Last Filed: 03/04/20 11:35> Vital Signs/Physical Exam: Temp Pulse Resp BP Pulse Ox 97.9 F 85 18 192/113 H 96 03/04/20 12:00 03/04/20 12:00 03/04/20 12:00 03/04/20 12:00 03/04/20 12:00 Laboratory Data at Discharge: WBC 8.2 K/uL (4.3-10.9) D 03/02/20 05:37 Hgb 13.9 g/dL (12.0-15.0) 03/02/20 05:37 Hct 40.3 % (36.0-45.0) 03/02/20 05:37 Plt Count 208 K/uL (152-406) 03/02/20 05:37 Sodium 141 mmol/L (136-145) 03/04/20 05:33 Potassium 3.5 mmol/L (3.5-5.1) 03/04/20 05:33 BUN 10 mg/dL (7-18) 03/04/20 05:33 Creatinine 0.68 mg/dL (0.55-1.3) 03/04/20 05:33 Glucose 143 mg/dL (74-106) H 03/04/20 05:33 Phosphorus 2.3 mg/dL (2.5-4.9) L 03/04/20 05:33 Magnesium 1.9 mg/dL (1.8-2.4) 03/03/20 05:51 Total Bilirubin 1.2 mg/dL (0.2-1.0) H 03/01/20 05:32 AST 75 U/L (15-37) H 03/01/20 05:32 ALT 193 U/L (12-78) H 03/01/20 05:32 Alkaline Phosphatase 181 U/L (45-117) H 03/01/20 05:32 Lipase 99 U/L (73-393) 02/29/20 18:22 <Erick Gomez - Last Filed: 03/04/20 14:51> Patient Discharge Instructions: Follow up with , PCP. Continue IV antibiotics at home Diet: Regular Activity: Ad patsy Time spent managing pt's care (in minutes): 55 <Yang Garcia - Last Filed: 03/04/20 11:35> <Erick Gomez - Last Filed: 03/04/20 14:51> Home Medications: PHENYTOIN ER Cap [Dilantin ER Cap*] 300 mg PO BEDTIME 03/01/20 Diclofenac Sodium 75 mg PO BID* PRN 30 Days #30 tablet. 03/04/20 Promethazine Tab [Phenergan] 25 mg PO Q6HP PRN 30 Days #30 tab 03/04/20 Sumatriptan [Imitrex*] 50 mg PO PRN PRN 30 Days #10 tab 03/04/20 Tramadol HCl [Ultram] 50 mg PO Q8HP PRN #15 tablet 03/04/20 New Medications: Diclofenac Sodium 75 mg PO BID* PRN 30 Days #30 tablet. PRN Reason: Pain Scale 5-7 (Moderate) Sumatriptan [Imitrex*] 50 mg PO PRN PRN 30 Days #10 tab PRN Reason: Pain Scale 5-7 (Moderate) Promethazine Tab [Phenergan] 25 mg PO Q6HP PRN 30 Days #30 tab PRN Reason: Nausea / Vomiting Tramadol HCl [Ultram] 50 mg PO Q8HP PRN #15 tablet PRN Reason: Pain Scale 5-7 (Moderate) Followup: Jean Marie Kumar MD [ACTIVE - CAN ADMIT] - 03/05/20 9:00 am
--- NOTE | 2020-03-04 13:13 | P.PN ---
Date of Service: 03/04/20 Subjective: Patient is a 39-year-old female who presented to the ED with nausea, vomiting, fever and chills, and bilateral flank pain, right greater than left. Patient was seen in the ED yesterday 80, diagnosed with the UTI and was discharged home with Macrobid. Patient found to have pyelonephritis which I have been consulted for. Patient reports taking 1 dose of Macrobid and vomiting. Patient examined at bedside. Reports flank pain improving and nausea and vomiting has resolved Objective: Temp Pulse Resp BP Pulse Ox 97.4 F 95 H 16 170/80 H 96 03/04/20 08:37 03/04/20 08:37 03/04/20 08:37 03/04/20 08:37 03/04/20 08:37 Labs: Sodium 141, potassium 3.5, BUN 10, creatinine 0.68, albumin 2.6, WBC 8.2, hemoglobin 13.9, hematocrit 40.3 Abd/Pelvis CT 02/28: EXAM DESCRIPTION: CT - Abdomen Pelvis W Contrast - 02/29/2020 7:02 pm CLINICAL HISTORY: flank pain, vomiting COMPARISON: Abdomen Pelvis W Contrast dated 08/19/2019; Stone Protocol dated 02/28/2020 TECHNIQUE: Biphasic, helical CT imaging of the abdomen and pelvis was performed following 100 ml non-ionic IV contrast. No oral contrast administered. All CT scans are performed using dose optimization technique as appropriate and may include automated exposure control or mA/KV adjustment according to patient size. FINDINGS: No suspicious findings in the lung bases. The liver, spleen, and pancreas show no suspicious findings. Cholecystectomy clips are present. No biliary tree dilatation. No obstructing calculi are present. Punctate nonobstructing calculi are again noted. No left-sided hydronephrosis. Small left-sided renal cysts are similar to comparison. Patient has a right-sided renal cyst. In the lower pole lateral right kidney there is a 2-2.5 centimeter area of decreased attenuation and diminished enhancement. The patient had a 13 millimeter cyst in this region in 2019. Current findings believed to be pyelonephritis of the right kidney incorporating this cyst. There is fluid and stranding in the perinephric fat. No solid mass lesions seen. No bladder abnormalities. No adrenal abnormalities. Uterus and ovaries show no suspicious findings. No dilated bowel loops or bowel wall thickening. No free air, free fluid or pneumatosis. No hernia, mass or bulky lymphadenopathy. No suspicious bony findings. IMPRESSION: Pyelonephritis findings are evident in the lower pole of the right kidney surrounding a small cyst. Fluid in stranding are present in the right- side perinephric fat. Given the presence of a cyst in this location of infection, patient should be monitored to assure no development of renal abscess. No obstructing calculi seen. No right-sided hydronephrosis. ROS: General: Awake, alert CV: S1,S2 RESP: Good breath sounds ABD: Bowel sounds present, generalized tenderness on palpation : Severe CVA tenderness R>L, improved Extremities: No edema Assessment and plan: Pyelonephritis Sepsis, elevated procalcitonin Leukocytosis resolved Urine cultures show >100,000 mixed anel Blood cultures show no growth to date Protein calorie malnourished Currently on IV Merrem, recommend to continue for total of 2 weeks Will continue to monitor Patient discussed with Dr. Mcneil
[2020-03-04 13:37] VITALS: BP 192/113; TEMP 97.9
[2020-03-04] MEDS ORDERED: METOPROLOL TAR 50 MG TAB PO SCH (18:00)
== END 2020-03-04 13:11 | disposition home health service (06) | DRG 872 ==
LOC: ER 17:02 → ERHOLD 22:27 → 2ND 23:12
PROVIDERS: ADMIT Internal Medicine; ATTEND Family Medicine
PROC: 02HV33Z Insertion of Infusion Device into Superior Vena Cava, Percutaneous Approach (ICD-10-PCS; principal; 2020-03-03)
DX: A41.9 Sepsis, unspecified organism (principal); N10 Acute pyelonephritis; Z86.73 Personal history of transient ischemic attack (TIA), and cerebral infarction without residual deficits; Z88.1 Allergy status to other antibiotic agents; Z88.2 Allergy status to sulfonamides; Z79.82 Long term (current) use of aspirin; Z79.899 Other long term (current) drug therapy; I10 Essential (primary) hypertension; Z90.49 Acquired absence of other specified parts of digestive tract; N28.1 Cyst of kidney, acquired; F17.210 Nicotine dependence, cigarettes, uncomplicated; R94.5 Abnormal results of liver function studies; Z20.828 Contact with and (suspected) exposure to other viral communicable diseases; R50.9 Fever, unspecified; E78.5 Hyperlipidemia, unspecified; G43.901 Migraine, unspecified, not intractable, with status migrainosus; G47.9 Sleep disorder, unspecified; I16.0 Hypertensive urgency
CPT/HCPCS: 36415; 36569; 71045; 74176; 74177; 76377; 80048; 80053; 80076; 80185; 80202; 81003; 81015; 81025; 82150; 82550; 82553; 83605; 83690; 83735; 84100; 84145; 84484; 85025; 85610; 85730; 87040; 87077; 87086; 87088; 87186; 87205; 93005; 94760; 96361; 96365; 96366; 96375; 99284; 99285; J0360; J1650; J2270; J2405; J2550; J2765; J3010; J3360; J3370; J3475; J7030; J7040; J7799; Q9967; U0002

== ENCOUNTER 2020-07-17 15:26 | Emergency (ER) | payer OTHER ==
--- OUTSIDE RECORDS SUMMARY | 2020-07-17 15:28 | XMS REPORT | Clinical Summary ---
:1980 Author Organization [facility] Address [address] [place] [address] Care Team Providers Name Role Phone Louie [...] Team Description 02/28/2020 Lab Requisition Lab after 07/17/2019 Social History Tobacco Use Types Packs/Day Years Used Date Never Assessed Sex Assigned at Date Recorded Not on file Last Filed Vital Signs Not on file Plan of Treatment Not on file Procedures Procedure Name Priority Date/Time Associated Diagnosis Comme nts SARS-COV2/RT-PCR Routine 02/28/2020 3:04 PM Resu lts for this ([facility]) CDT procedure are in the results section. after 07/17/2019 Results SARS-CoV2/RT-PCR ([facility]) (02/28/2020 3:04 PM CDT) SARS-COV2/RT-PCR Negative Not Detected, [facility] Negative [facility] [place] SARS-COV-2 [facility] PERFORMING LAB [facility] [place] Specimen Other - Nasopharyngeal wall structure (b torri structure) Narrative Performed At Negative result for this test determines that [facility] SARS-CoV-2 RNA was not present in the [...] the Act. Fact Sheet for Healthcare Providers: https://www.[employer]/sites/default/files/pro duct/documents/Fact_Sheet_HC_Providers_Lyra_SA RS-CoV-2.pdf Fact Sheet for Healthcare Patients: https://www.WinAd.com/sites/default/files/pro duct/documents/Fact_Sheet_Patients_Lyra_SARS-C oV-2.pdf Performing Laboratory: [address] [place] [address] Performing Organization Address City/State/Zipcode Phone Number [facility] [address] [place] [phone] CENTER after 07/17/2019 Insurance Payer Benefit Plan Subscriber ID Effective Dates Phone Address Type / Group MEDICAID - [facility] COMM [id number] 1916-[id number] edicaid MEDICAID MGD STAR PLAN nt [facility] Advance Directives For more information, please contact: [phone] Code Status Date Activated Date Inactivated Comments Full Code 10/14/2016 3:43 PM 10/18/2016 2:41 AM This code status was determined by: Patient
--- OUTSIDE RECORDS SUMMARY | 2020-07-17 15:29 | XMS REPORT | Continuity of Care Document ---
:1980 Author Organization [facility] t Address [address] [place] [address] Care Team Providers Name Role Phone Sharpless Primary Care Physician Randa EMERGENCY DISPATCHER Attending Clinician Pob1, Care Clinic Attending Clinician Unavailable LUIS E Attending Clinician Unavailable ZINDADILSON Admitting Clinician Unavailable Payers Payer Name Policy Type Policy Effective Date Expiration Date Sour ce Number MEDICAID - [id number] [facility] MEDICAID MGD 00:00:00 - Medical CARED COMM Center STAR [id number] caid Contracted Problems Condition Condition Condition Status Onset Resolution Last Treating Co mments Source Name Details Category Date Date Treatment Clinician Date Headache Head[facility] Seizure Seizure Disease Active [facility] disorder [...] adverse 00:00: Medical reaction 00 Center s Social History Social Habit Start Date Stop Date Quantity Comments Source Sex Assigned At [facility] Medications Ordered Filled Start Stop Current Ordering Indication Dosage Frequency Signature Comments Components Source Medication Medication Date Date Medication? Clinician (SIG) Name Name phenytoin 2017-0 Yes epilepsy [id number] Take by [facility] (DILANTIN) 2-28 [id number] mouth 3 [facility] - 100 MG ER 00:41: 3D (three) Medic al capsule 28 times Center daily. Procedures Procedure Date / Time Performed Performing Clinician Sourc e SARS-COV2/RT-PCR ([facility] 2020-02-28 15:04:[address] [facility]) Medical Center Encounters Start End Encounter Admission Attending Care Care Encounter Source Date/Time Date/Time Type Type Clinicians Facility Department ID 2019-11-27 2019-11-27 Telephone Anene, [facility] [id number] 00:00:00 00:00:00 [facility] [id number] Home [id number] Professio [id number] [place] [address] [address] 2019-11-25 2019-11-25 Urgent Pob1, Acute [facility] [id number] 14:55:25 15:15:25 [facility] [id number] Home [id number] Professio [phone] [place] [address] [address] 2019-11-25 2019-11-25 Telephone Pob1, Acute [facility] [id number] 00:00:00 00:00:00 [facility] [id number] Home [id number] Professio [phone] [place] [address] [address] Results Test Description Test Time Test Comments Results Result Comments Source SARS-CoV2/RT-PCR ([facility]) 2020-02-29 10:51:00 Test Item Value Reference Range Interpretation Comme nts SARS-COV2/RT-PCR (test code = Negative Not Detected, Negative 83171-0) SARS-COV-2 PERFORMING LAB [facility] (test code = 99747-0) SUZI (test code = SUZI) Negative result [...] of the Act. Fact Sheet for Healthcare Providers:https://www.[employer]. [employer]Star/sites/default/files/produ ct/documents/Fact_Sheet_HC_Pr skgsgwv_Eaco_IAXH-RxW-6.pdf Fact Sheet for Healthcare Patients:https://www.[employer].c om/sites/default/files/produc t/documents/Fact_Sheet_Patien ky_Nzua_WNAB-AhP-3.pdf Performing Laboratory:[facility] [place] [address] [facility])2020-02-29 10:51:00 Test Item Value Reference Range Interpretation Comments SARS-COV2/RT-PCR (test code = Negative Not Detected, Negative 9877985) SARS-COV-2 PERFORMING LAB [facility] (test code = 9656106) Negative result for this test determines that [...] 564(g) of the Act.Fact Sheet for Healthcare Providers:https://www.quidel.com/sites/default/files/product/documents/Fact_Shee c_VR_Ajrednffl_Vset_GQZN-LmM-8.pdfFact Sheet for Healthcare Patients:https://www.quidel.com/sites/default/files/product/ documents/Dooa_Xvcfe_Ycrweuwm_Deut_RQNU-OkT-0.pdfPerforming Laboratory:[facility], [place] [address]DFCVZSBKUMR ANTIBODIES, IGG AND [id number] 11:17:00 Test Item Value Reference Range Interpretation Comments ANTICARDIOLIPIN IGG ANTIBODY (BEAKER) < GPL (test code = 712) ANTICARDIOLIPIN IGM ANTIBODY (BEAKER) 0.6 MPL (test code = 713) Anticardiolipin IgG Result Interpretation: NEG:<20 GPL; U/mlPOS:>/=20 GPL;U/mlAnticardiolipinIgM Result Interpretation: NEG:<20 MPL; U/mlPOS:>/=20 MPL;U/[id number] 19:19:00 Test Item Value Reference Range Interpretation Comments HOMOCYSTEINE (BEAKER) (test code 19.1 umol/L 5.1-15.4 H = 642) HEMOGLOBIN [id number] 16:55:00 Test Item Value Reference Range Interpretation Comments HEMOGLOBIN A1C (BEAKER) (test code = 5.1 % 4.3-6.1 368) TSH/FREE T4 IF [id number] 16:00:00 Test Item Value Reference Range Interpretation Comments THYROID STIMULATING HORMONE 1.64 uIU/mL 0.35-4.94 (BEAKER) (test code = 772) VITAMIN B12 AND [id number] 16:00:00 Test Item Value Reference Range Interpretation Comments VITAMIN B12 (BEAKER) (test code = 241 pg/mL 213-816 774) FOLATE (BEAKER) (test code = 362) 3.7 ng/mL >=7.0 L Effective 07/08/2014: Folate Reference Range ChangeNew: >=7.0 Previous: >=5.4SEDIMENTATION [id number] 15:57:00 Test Item Value Reference Range Interpretation Comments SEDIMENTATION RATE, ERYTHROCYTE 8 mm/HR 0-20 (BEAKER) (test code = 766) LIPID [id number] 15:32:00 Test Item Value Reference Range Interpretation [...] Borderline 130-159 High 160-189 Very High >=190C-REACTIVE [id number] 15:30:00 Test Item Value Reference Range Interpretation Comments C-REACTIVE PROTEIN (BEAKER) (test 2.96 mg/dL 0.00-0.50 H code = 676) CBC W/PLT COUNT & AUTO [id number] 15:05:00 Test Item Value Reference Range Interpretation [...] K/ L 0.00-0.20 (test code = 417) [id number] 07:34:00 Test Item Value Reference Range Interpretation Comments MAGNESIUM (BEAKER) 2.0 mg/dL 1.6-2.6 Specimen slightly (test code = 627) hemolyzed BASIC METABOLIC [id number] 07:33:00 Test Item Value Reference Range Interpretation [...] S NOT APPLICABLE FOR DIALYSIS PATIEN TS. [id number] 07:27:00 Test Item Value Reference Range Interpretation Comments MAGNESIUM (BEAKER) (test code = 1.7 mg/dL 1.6-2.6 627) SCREEN, [id number] 13:54:00 Test Item Value Reference Range Interpretation Comments TEST URINE (BEAKER) (test Negative code = 583) [id number] 02:55:00 Test Item Value Reference Range Interpretation Comments MAGNESIUM (BEAKER) (test code = 1.8 mg/dL 1.6-2.6 627) PHENYTOIN LEVEL, [id number] 00:30:00 Test Item Value Reference Range Interpretation Comments PHENYTOIN (DILANTIN) (BEAKER) (test 7.3 ug/mL 10.0-20.0 L code = 605) HEPATIC FUNCTION [id number] 00:26:00 Test Item Value Reference Range Interpretation [...] = 20 U/L 6-55 347) BASIC METABOLIC [id number] 00:26:00 Test Item Value Reference Range Interpretation [...] S NOT APPLICABLE FOR DIALYSIS PATIEN TS. [id number] 00:26:00 Test Item Value Reference Range Interpretation Comments ALBUMIN (BEAKER) (test code = 1145) 3.8 g/dL 3.5-5.0 CBC W/PLT COUNT & AUTO [id number] 00:16:00 Test Item Value Reference Range Interpretation [...]
[2020-07-17 16:31] LABS: Urine Blood 1+ (NEG); Urine Glucose NEGATIVE (NEG); Urine Protein NEGATIVE (NEG); Urine Specific Gravity 1.025 (1.005-1.030); Urine pH 5.5 (5.0-7.0)
[2020-07-17 16:31] LABS: Urine Amorphous Sediment 1+ /HPF (NONE SEEN); Urine Bacteria <20 /HPF (<20); Urine Mucus 1+ /HPF (NONE SEEN)
[2020-07-17] MEDS ORDERED: MORPHINE 4 MG/ML SYR ONE ×2 (17:01→17:34)
[2020-07-17] MEDS ORDERED: ONDANSETRON 4 MG/2 ML VIAL ONE (17:01)
[2020-07-17 17:04] LABS: Absolute Lymphocytes (CBC) 1.2 K/uL (0.7-4.9); Basophils % 0.7 % (0-1.3); Hematocrit 48.4 % (36.0-45.0); Lymphocytes % 8.6 % (15.3-44.8); MPV 9.2 fL (7.6-11.3)
[2020-07-17 17:24] LABS: Potassium 4.9 mmol/L (3.5-5.1)
[2020-07-17] MEDS ORDERED: NA CHLORIDE 0.9% 1,000 ML ONE (17:34)
--- NOTE | 2020-07-17 17:35 | RAD REPORT ---
EXAM DESCRIPTION: CT - Stone Protocol - 07/17/2020 5:13 pm CLINICAL HISTORY: Abdominal pain. COMPARISON: February 2020 TECHNIQUE: Computed axial tomography of the abdomen pelvis was obtained without oral or IV contrast. Lack of IV and oral contrast limits evaluation of solid organs, bowel, and vessels. Coronal reformat greta images were obtained and reviewed. All CT scans are performed using dose optimization technique as appropriate and may include automated exposure control or mA/KV adjustment according to patient size. FINDINGS: Small bilateral renal calculi. No hydronephrosis. . An ureteral calculus is not noted. A b ladder calculus is not present. The liver, spleen, pancreas and adrenals appear grossly normal There is no evidence of diverticulitis. The appendix appears normal IMPRESSION: Small nonobstructing bilateral renal calculi
[2020-07-17] MEDS ORDERED: FAMOTIDINE 20 MG/2 ML VIAL IV ONE (17:50)
[2020-07-17] MEDS ORDERED: MAGNES/ALUMIN/SIMET 30ML UCUP ONE (17:51)
--- NOTE | 2020-07-17 18:09 | EDPHYS ---
Physician Documentation [facility] [place] Name: Nelia Corley Age: 40 yrs Sex: Female : 1980 Arrival Date: 07/17/2020 Time: 15:28 Bed 5 Private MD: ED Physician Amy Negron HPI: 07/17 18:07 This 40 yrs old Female presents to ER via Wheelchair with complaints of kb Abdominal Pain, Vomiting. 18:07 The patient presents with abdominal pain in the lower abdomen. Onset: The kb symptoms/episode began/occurred at 13:00. The symptoms do not radiate. Associated signs and symptoms: Pertinent positives: nausea and vomiting, Pertinent negatives: diarrhea, fever. The symptoms are described as constant. Modifying factors: The symptoms are alleviated by nothing, the symptoms are aggravated by movement. Severity of pain: At its worst the pain was moderate in the emergency department the pain is unchanged. The patient has not experienced similar symptoms in the past. The patient has not recently seen a physician. 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 - Social history:: Smoking status: Patient denies any tobacco usage or history of. ROS: 18:06 Constitutional: Negative for fever, chills, and weight loss, Cardiovascular: Negative kb for chest pain, palpitations, and edema, Respiratory: Negative for shortness of breath, cough, wheezing, and pleuritic chest pain, Back: Negative for injury and pain, MS/Extremity: Negative for injury and deformity, Skin: Negative for injury, rash, and discoloration, Neuro: Negative for headache, weakness, numbness, tingling, and seizure. 18:06 Abdomen/GI: Positive for abdominal pain, nausea. Exam: 18:06 Constitutional: This is a well developed, well nourished patient who is awake, alert, kb and in no acute distress. Head/Face: Normocephalic, atraumatic. Chest/axilla: Normal chest wall appearance and motion. Nontender with no deformity. No lesions are appreciated. Cardiovascular: Regular rate and rhythm with a normal S1 and S2. No gallops, murmurs, or rubs. Normal PMI, no JVD. No pulse deficits. Respiratory: Lungs have equal breath sounds bilaterally, clear to auscultation and percussion. No rales, rhonchi or wheezes noted. No increased work of breathing, no retractions or nasal flaring. Skin: Warm, dry with normal turgor. Normal color with no rashes, no lesions, and no evidence of cellulitis. MS/ Extremity: Pulses equal, no cyanosis. Neurovascular intact. Full, normal range of motion. Neuro: Awake and alert, GCS 15, oriented to person, place, time, and situation. Cranial nerves II-XII grossly intact. Motor strength 5/5 in all extremities. Sensory grossly intact. Cerebellar exam normal. Normal gait. 18:06 Abdomen/GI: Inspection: abdomen appears normal, Bowel sounds: normal, in all quadrants, Palpation: soft, in all quadrants, mild abdominal tenderness, in the right lower quadrant and left lower quadrant. Vital Signs: 16:10 BP 191 / 135; Pulse 80; Resp 17; Temp 97.0; Pulse Ox 96% on R/A; Pain 10/10; ll1 16:58 BP 184 / 103; ll1 17:28 BP 165 / 109; Pulse 82; Resp 18; Pulse Ox 98% on R/A; ll1 18:45 BP 162 / 87; Pulse 76; Resp 18; Pulse Ox 99% ; Pain 6/10; ll1 MDM: 16:00 Patient medically screened. kb 18:01 Data reviewed: vital signs, nurses notes. Data interpreted: Pulse oximetry: on room air kb is 98 %. Interpretation: normal. Counseling: I had a detailed discussion with the patient and/or guardian regarding: the historical points, exam findings, and any diagnostic results supporting the discharge/admit diagnosis, lab results, radiology results, the need for outpatient follow up, a family practitioner, to return to the emergency department if symptoms worsen or persist or if there are any questions or concerns that arise at home. 07/17 16:03 Order name: Basic Metabolic Panel; Complete Time: 17:25 kb 07/17 16:03 Order name: CBC with Diff; Complete Time: 18:29 kb 07/17 16:03 Order name: Urine Microscopic Only; Complete Time: 16:32 kb 07/17 16:22 Order name: Urine Dipstick--Ancillary (enter results); Complete Time: 16:32 eb 07/17 16:22 Order name: Urine --Ancillary (enter results); Complete Time: 16:32 eb 07/17 16:32 Order name: Urine Culture [facility] 07/17 16:03 Order name: CT Stone Protocol; Complete Time: 17:37 kb 07/17 18:23 Order name: Manual Differential; Complete Time: 18:29 [facility] 07/17 16:03 Order name: Urine Test (obtain specimen); Complete Time: 16:23 kb 07/17 16:03 Order name: Urine Dipstick-Ancillary (obtain specimen); Complete Time: 16:23 kb 07/17 16:03 Order name: IV Saline Lock; Complete Time: 16:23 kb 07/17 16:03 Order name: Labs collected and sent; Complete Time: 16:23 kb 07/17 16:55 Order name: Labs - recollect needed: recollect green top/ clotted; Complete Time: 17:03 eb Administered Medications: 16:57 Drug: morphine 4 mg Route: IVP; Site: left wrist; ll1 17:28 Follow up: Response: No adverse reaction; RASS: Alert and Calm (0) ll1 16:57 Drug: Zofran (Ondansetron) 4 mg Route: IVP; Site: left wrist; ll1 17:28 Follow up: Response: No adverse reaction; RASS: Alert and Calm (0) ll1 17:27 Drug: NS 0.9% 1000 ml Route: IV; Rate: 1000 ml; Site: left wrist; ll1 18:48 Follow up: Response: No adverse reaction; RASS: Alert and Calm (0); IV Status: ll1 Completed infusion; IV Intake: 400ml 17:27 Drug: morphine 4 mg Route: IVP; Site: left wrist; ll1 17:44 Follow up: Response: No adverse reaction; RASS: Alert and Calm (0) ll1 17:44 Drug: Pepcid 20 mg Route: IVP; Site: left wrist; ll1 18:19 Follow up: Response: No adverse reaction; RASS: Alert and Calm (0) ll1 17:44 Drug: GI Cocktail without - (Maalox Suspension 30 ml, Lidocaine Liquid 2 % 15 ll1 ml) Route: PO; 18:19 Follow up: Response: No adverse reaction; RASS: Alert and Calm (0) ll1 18:18 Drug: Bentyl 20 mg Route: PO; ll1 18:48 Follow up: Response: No adverse reaction; RASS: Alert and Calm (0) ll1 18:18 Drug: fentaNYL (PF) 25 mcg Route: IVP; Site: left wrist; ll1 18:47 Follow up: Response: No adverse reaction; Pain is decreased; RASS: Alert and Calm (0) ll1 18:18 Drug: Macrobid 100 mg Route: PO; ll1 18:47 Follow up: Response: No adverse reaction; RASS: Alert and Calm (0) ll1 Disposition: 07/17/20 18:08 Discharged to Home. Impression: Generalized abdominal pain, Urinary tract infection, site not specified. - Condition is Stable. - Discharge Instructions: Urinary Tract Infection, Adult, [id number], Abdominal Pain, Adult, [id number]. - Prescriptions for Bentyl 20 mg Oral Tablet - take 1 tablet by ORAL route every 6 hours As needed; 20 tablet. Macrobid 100 mg Oral Capsule - take 1 capsule by ORAL route every 12 hours for 10 days; 20 capsule. - Medication Reconciliation Form, Thank You Letter, Antibiotic Education, Prescription Opioid Use form. - Follow up: Emergency Department; When: As needed; Reason: Worsening of condition. Follow up: Private Physician; When: 2 - 3 days; Reason: Recheck today's complaints, Continuance of care, Re-evaluation by your physician. Addendum: 07/21/2020 03:31 Co-signature as Attending Physician, Amy Negron MD. m a2 Signatures: Dispatcher [employer] Argenis Espinosa, ALONZO DUMONT-Amy Benitez MD MD ma2 Emeli He Lynsay, RN RN ll1 Corrections: (The following items were deleted from the chart) 07/17 18:48 18:08 07/17/2020 18:08 Discharged to Home. Impression: Generalized abdominal pain; ll1 Urinary tract infection, site not specified. Condition is Stable. Forms are Medication Reconciliation Form, Thank You Letter, Antibiotic Education, Prescription Opioid Use. Follow up: Emergency Department; When: As needed; Reason: Worsening of condition. Follow up: Private Physician; When: 2 - 3 days; Reason: Recheck today's complaints, Continuance of care, Re-evaluation by your physician. kb
--- NOTE | 2020-07-17 18:09 | ER ---
Nurse's Notes [facility] Name: Nelia Corley Age: 40 yrs Sex: Female : 1980 Arrival Date: 07/17/2020 Time: 15:28 Bed 5 Private MD: Diagnosis: Generalized abdominal pain;Urinary tract infection, site not specified Presentation: 07/17 16:05 Coronavirus screen: Client denies travel out of the [place] in the last 14 days. At this ll1 time, the client does not indicate any symptoms associated with coronavirus-19. Ebola Screen: Patient denies travel to an Ebola-affected area in the 21 days before illness onset. Onset of symptoms was July 17, 2020. 16:05 Method Of Arrival: Wheelchair ll1 16:05 Acuity: JENNIFER 3 ll1 16:10 Chief complaint: Patient states: R flank/mid abd pain since 1400 today. + N/V. Initial ll1 Sepsis Screen: Does the patient meet any 2 criteria? No. Patient's initial sepsis screen is negative. Does the patient have a suspected source of infection? Yes: Dysuria/Frequency/Urgency/UTI. Risk Assessment: Do you want to hurt yourself or someone else? Patient reports no desire to harm self or others. Triage Assessment: 16:58 General: Appears uncomfortable, Behavior is appropriate for age, restless. Pain: ll1 Complains of pain in abdomen Quality of pain is described as aching. Neuro: No deficits noted. Cardiovascular: No deficits noted. Respiratory: No deficits noted. GI: Abdomen is flat, Bowel sounds present X 4 quads. Abd is soft and non tender X 4 quads. : Urine is cloudy, Reports cramping, urgency. 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 - Social history:: Smoking status: Patient denies any tobacco usage or history of. Screenin:58 Abuse screen: Denies threats or abuse. Nutritional screening: No deficits noted. ll1 Tuberculosis screening: No symptoms or risk factors identified. Fall Risk IV access (20 points). Gait- Weak (10 pts.). Total Babcock Fall Scale indicates Low Risk Score (25-44 pts). Fall prevention measures have been instituted. Side Rails Up X 2 Frequent Obs/Assesments occuring As available Patient and Family Educated on Fall Prevention Program and strategies. Assessment: 17:00 Reassessment: No changes from previously documented assessment. Patient and/or family ll1 updated on plan of care and expected duration. Pain level reassessed. 18:00 Reassessment: No changes from previously documented assessment. Patient states feeling ll1 better. Vital Signs: 16:10 BP 191 / 135; Pulse 80; Resp 17; Temp 97.0; Pulse Ox 96% on R/A; Pain 10/10; ll1 16:58 BP 184 / 103; ll1 17:28 BP 165 / 109; Pulse 82; Resp 18; Pulse Ox 98% on R/A; ll1 18:45 BP 162 / 87; Pulse 76; Resp 18; Pulse Ox 99% ; Pain 6/10; ll1 ED Course: 15:28 Patient arrived in ED. mr 15:39 GurmeetArgenis, [facility] kb 15:39 Amy Negron MD is Attending Physician. kb 16:04 Arm band placed on Patient placed in an exam room, on a stretcher. ll1 16:10 Triage completed. ll1 16:22 Theresa Naranjo, LELO is Primary Nurse. ll1 16:30 Radiology exam delayed due to pt wants pain meds first. mw3 16:35 Missed attempt(s): 22 gauge in right antecubital area. Bleeding controlled, band aid ll1 applied, catheter tip intact. 16:40 Inserted saline lock: 24 gauge in left wrist, using aseptic technique. Blood collected. ll1 17:03 Patient has correct armband on for positive identification. Bed in low position. Call ll1 light in reach. Side rails up X2. Pulse ox on. NIBP on. 17:13 CT Stone Protocol In Process Unspecified. EDMS 18:46 No provider procedures requiring assistance completed. IV discontinued, intact, ll1 bleeding controlled, No redness/swelling at site. Pressure dressing applied. Administered Medications: 16:57 Drug: morphine 4 mg Route: IVP; Site: left wrist; ll1 17:28 Follow up: Response: No adverse reaction; RASS: Alert and Calm (0) ll1 16:57 Drug: Zofran (Ondansetron) 4 mg Route: IVP; Site: left wrist; ll1 17:28 Follow up: Response: No adverse reaction; RASS: Alert and Calm (0) ll1 17:27 Drug: NS 0.9% 1000 ml Route: IV; Rate: 1000 ml; Site: left wrist; ll1 18:48 Follow up: Response: No adverse reaction; RASS: Alert and Calm (0); IV Status: ll1 Completed infusion; IV Intake: 400ml 17:27 Drug: morphine 4 mg Route: IVP; Site: left wrist; ll1 17:44 Follow up: Response: No adverse reaction; RASS: Alert and Calm (0) ll1 17:44 Drug: Pepcid 20 mg Route: IVP; Site: left wrist; ll1 18:19 Follow up: Response: No adverse reaction; RASS: Alert and Calm (0) ll1 17:44 Drug: GI Cocktail without - (Maalox Suspension 30 ml, Lidocaine Liquid 2 % 15 ll1 ml) Route: PO; 18:19 Follow up: Response: No adverse reaction; RASS: Alert and Calm (0) ll1 18:18 Drug: Bentyl 20 mg Route: PO; ll1 18:48 Follow up: Response: No adverse reaction; RASS: Alert and Calm (0) ll1 18:18 Drug: fentaNYL (PF) 25 mcg Route: IVP; Site: left wrist; ll1 18:47 Follow up: Response: No adverse reaction; Pain is decreased; RASS: Alert and Calm (0) ll1 18:18 Drug: Macrobid 100 mg Route: PO; ll1 18:47 Follow up: Response: No adverse reaction; RASS: Alert and Calm (0) ll1 Intake: 18:48 IV: 400ml; Total: 400ml. ll1 Outcome: 18:08 Discharge ordered by . rosemary 18:46 Discharged to home ambulatory. ll1 18:46 Condition: stable 18:46 Discharge instructions given to patient, Instructed on discharge instructions, follow up and referral plans. medication usage, Demonstrated understanding of instructions, follow-up care, medications, Prescriptions given X 2. 18:48 Patient left the ED. ll1 Signatures: Dispatcher [employer] EDMS Argenis Levi, ADELAC SORTER LAUNDRY ARTICLES-Catie Herrera Michelle mw3 Theresa Naranjo, LELO RN ll1
[2020-07-17 18:23] LABS: Blood Morphology Comment NOT SEEN (NOT SEEN); Platelet Estimate ADEQ
[2020-07-17] MEDS ORDERED: DICYCLOMINE HCL 10 MG CAP ONE (18:27)
[2020-07-17] MEDS ORDERED: NITROFURAN MACRO 100 MG CAP PO ONE (18:27)
[2020-07-17] MEDS ORDERED: FENTANYL CITR 100 MCG/2 ML ONE (18:27)
[2020-07-17 20:58] VITALS: TEMP 97
[2020-07-17 21:02] VITALS: BP 162/87; O2SAT 99
== END 2020-07-17 18:48 | disposition home or self-care (01) ==
LOC: ER 15:26
DX: N39.0 Urinary tract infection, site not specified (principal); I10 Essential (primary) hypertension; Z88.1 Allergy status to other antibiotic agents; Z88.2 Allergy status to sulfonamides; Z88.5 Allergy status to narcotic agent
CPT/HCPCS: 96361; 87088; 85025; 87086; 80048; 36415; 81025; 76377; 74176; 96375; 96374; 99284; J3010; J7030; J2405; 81003; 81015

== ENCOUNTER 2021-07-04 09:23 | Emergency (ER) | payer OTHER ==
--- OUTSIDE RECORDS SUMMARY | 2021-07-04 09:26 | XMS REPORT | Continuity of Care Document ---
:1980 Author Organization [facility] t Address [address] [place] [address] Care Team Providers Name Role Phone Zana MUCK MINER BLASTING Attending Clinician Pob1, Care Clinic Attending Clinician Unavailable ZANA Attending Clinician Unavailable LUIS E Attending Clinician Unavailable LUIS E Admitting Clinician Unavailable Payers Payer Name Policy Type Policy Number Effective Date Expiration Date S ource Problems Condition Condition Condition Status Onset Resolution Last Treating Co mments Source Name Details Category Date Date Treatment Clinician Date Essential Essential Disease Active Uni vers hypertensi hypertensi 11-24 it y of on on 00:00: [facility] Anxiety Anxiety Disease Active 2019- Univers 4-06 ity of 00:00: Medical [place] No known No known Disease Unive rs active active ity of problems problems [facility] Allergies, Adverse Reactions, Alerts Allergy Allergy Status Severity Reaction(s) Onset Inactive Treating Comm ents Source Name Type Date Date Clinician Tramadol Propensi Active Other - See Seizure Univers ty to comments 01-10 ity of adverse 00:00: [place] reaction 00 Medical s Branch TRAMADOL DRUG Active Other-Cmnt Univ ers INGREDI 01-10 ity of 00:00: [place] 00 Medical Branch Ketorola Propensi Active Other - See Seizure Univers c ty to comments 01-04 ity of adverse 00:00: [place] reaction 00 Medical s Branch KETOROLA DRUG Active Other-Cmnt Univ ers C INGREDI -17 ity of 00:00: [place] 00 Medical Branch Cefaclor Propensi Active Unknown - Uni vers ty to See comments 2-24 ity of adverse 00:00: [place] reaction 00 Medical s Branch Sulfa Propensi Active Unknown - Unive rs (Sulfona ty to See comments 2-24 it y of mide adverse 00:00: [place] Antibiot reaction 00 Medica l ics) s Branch CEFACLOR DRUG Active Unknown-Cmnt Un yesika INGREDI 2-24 ity of 00:00: [place] 00 Medical Branch SULFA Drug Active Unknown-Cmnt Univ ers (SULFONA Class 2-24 ity of MIDE 00:00: [place] ANTIBIOT 00 Medical ICS) Branch Social History Social Habit Start Date Stop Date Quantity Comments Source Sex Assigned At [facility] Smoking Status Start Date Stop Date Source Current every day smoker 2019-11-25 00:00:00 [facility] Unknown if ever smoked Universit y [facility] Medications Ordered Filled Start Stop Current Ordering Indication Dosage Frequency Signature Comments Components Source Medication Medication Date Date Medication? Clinician (SIG) Name Name lisinopril 2020-0 Yes 10mg Take 10 mg U nivers 10 mg 4-06 by mouth ity of tablet 20:10: daily. [address] lisinopril 0 Yes 10mg Take 10 mg U nivers 10 mg 4-06 by mouth ity of tablet 20:10: daily. [address] hydrOXYzine 2020- No [id number] 50mg Take 1 Univers 50 mg 11-24 05-07 tablet by ity of tablet 00:00: 04:59 mouth 3 [place] 00 :00 (three) Medical times Branch daily as needed for Anxiety for up to 30 days. albuterol 2020- No [id number] 2{puff} Inhale 2 Univers (VENTOLIN 4- 05-07 Puffs ity of HFA) 90 00:00: 04:59 every 6 [place] mcg/actuati 00 :00 (six) Medical on inhaler hours as Branc h needed for Shortness of Breath or Chest tightness for up to 30 days. hydrOXYzine 2020- No [id number] 50mg Take 1 Univers 50 mg 4- 05-07 tablet by ity of tablet 00:00: 04:59 mouth 3 [place] 00 :00 (three) Medical times Branch daily as needed for Anxiety for up to 30 days. albuterol 2020- No [id number] 2{puff} Inhale 2 Univers (VENTOLIN 4 05-07 Puffs ity of HFA) 90 00:00: 04:59 every 6 [place] mcg/actuati 00 :00 (six) Medical on inhaler hours as Branc h needed for Shortness of Breath or Chest tightness for up to 30 days. benzonatate 2020- No [id number] 100mg Take 1 Univers (TESSALON 4- 04-21 capsule by ity of PERLES) 100 00:00: 04:59 mouth 3 [place] mg capsule 00 :00 (three) Medica l times Branch daily for 14 days. benzonatate 2019-2019- No [id number] 100mg Take 1 Univers (TESSALON 4- 04-21 capsule by ity of PERLTagwhat) 100 00:00: 04:59 mouth 3 [place] mg capsule 00 :00 (three) Medica l times Branch daily for 14 days. amoxicillin 2019- No [id number] 1{tbl} Take 1 Univers -clavulanat 4- 04-17 tablet by it y of e 00:00: 04:59 mouth 2 [place] (AUGMENTIN) 00 :00 (two) Medical 875-125 mg times Branch per tablet daily for 10 days. amoxicillin 2019- No [id number] 1{tbl} Take 1 Univers -clavulanat 4-06 04-17 tablet by it y of e 00:00: 04:59 mouth 2 [place] (AUGMENTIN) 00 :00 (two) Medical 875-125 mg times Branch per tablet daily for 10 days. traMADOL 50 2018- Yes [id number] 50mg Take 1 Univers mg tablet 5-23 tablet by ity o f 00:00: mouth [place] 00 every 6 Medical (six) Branch hours as needed for Pain (scale 1-3). ondansetron 2018- Yes [id number] 4mg Take 1 Univers (ZOFRAN 5-23 tablet by ity of ODT) 4 mg 00:00: mouth [place] disintegrat 00 every 8 Medic al ing tablet (eight) Branch hours as needed for Nausea and Vomiting (N/V). traMADOL 50 2018-0 Yes [id number] 50mg Take 1 Univers mg tablet 5-23 tablet by ity o f 00:00: mouth [place] 00 every 6 Medical (six) Branch hours as needed for Pain (scale 1-3). ondansetron 2019-0 Yes [id number] 4mg Take 1 Univers (ZOFRAN 5-23 tablet by ity of ODT) 4 mg 00:00: mouth [place] disintegrat 00 every 8 Medic al ing tablet (eight) Branch hours as needed for Nausea and Vomiting (N/V). traMADOL 50 2018-0 Yes [id number] 50mg Take 1 Univers mg tablet 5-23 tablet by ity o f 00:00: mouth [place] 00 every 6 Medical (six) Branch hours as needed for Pain (scale 1-3). ondansetron Yes [id number] 4mg Take 1 Univers (ZOFRAN 5-23 tablet by ity of ODT) 4 mg 00:00: mouth [place] disintegrat 00 every 8 Medic al ing tablet (eight) Branch hours as needed for Nausea and Vomiting (N/V). ondansetron Yes [id number] 4mg Take 1 Univers (ZOFRAN) 4 5-17 tablet by ity of mg tablet 00:00: mouth [place] 00 every 8 Medical (eight) Branch hours as needed for Nausea and Vomiting (N/V). tamsulosin Yes [id number] .4mg Take 1 U nivers 0.4 mg 24 5-17 capsule by ity of hr capsule 00:00: mouth at [place] as 00 bedtime. Medical Branch pantoprazol 2018-0 Yes [id number] 40mg Take 1 Univers e 5-17 tablet by ity of (PROTONIX) 00:00: mouth [place] 40 mg EC 00 daily. Medical tablet Branch ketorolac 2018-0 Yes [id number] 10mg Take 1 Un yesika 10 mg 5-17 tablet by ity of tablet 00:00: mouth [place] 00 every 6 Medical (six) Branch hours as needed for Alternate with [place] for pain scale 4-6. ondansetron 2018- Yes [id number] 4mg Take 1 Univers (ZOFRAN) 4 5-17 tablet by ity of mg tablet 00:00: mouth [place] 00 every 8 Medical (eight) Branch hours as needed for Nausea and Vomiting (N/V). tamsulosin 2018- Yes [id number] .4mg Take 1 U nivers 0.4 mg 24 5-17 capsule by ity of hr capsule 00:00: mouth at [place] 00 bedtime. Medical Branch pantoprazol Yes [id number] 40mg Take 1 Univers e 5-17 tablet by ity of (PROTONIX) 00:00: mouth [place] 40 mg EC 00 daily. Medical tablet Branch ketorolac Yes [id number] 10mg Take 1 Un yesika 10 mg 5-17 tablet by ity of tablet 00:00: mouth [place] 00 every 6 Medical (six) Branch hours as needed for Alternate with [place] for pain scale 4-6. ondansetron Yes [id number] 4mg Take 1 Univers (ZOFRAN) 4 5-17 tablet by ity of mg tablet 00:00: mouth [place] 00 every 8 Medical (eight) Branch hours as needed for Nausea and Vomiting (N/V). tamsulosin Yes [id number] .4mg Take 1 U nivers 0.4 mg 24 5-17 capsule by ity of hr capsule 00:00: mouth at [place] 00 bedtime. Medical Branch pantoprazol Yes [id number] 40mg Take 1 Univers e 5-17 tablet by ity of (PROTONIX) 00:00: mouth [place] 40 mg EC 00 daily. Medical tablet Branch ketorolac Yes [id number] 10mg Take 1 Un yesika 10 mg 5-17 tablet by ity of tablet 00:00: mouth [place] 00 every 6 Medical (six) Branch hours as needed for Alternate with [place] for pain scale 4-6. ciprofloxac 2018- Yes [id number] 500mg Take 1 Univers in HCl 500 5-17 tablet by ity of mg tablet 00:00: mouth 2 [place] 00 (two) Medical times Branch daily. metroNIDAZO 2019-0 Yes [id number] 500mg Take 1 Univers LE 500 mg 5-17 tablet by ity o f tablet 00:00: mouth 2 [place] 00 (two) Medical times Branch daily. ciprofloxac 2019- 2020- No [id number] 500mg Take 1 Univers in HCl 500 5-17 04-06 tablet by ity of mg tablet 00:00: 00:[place] 2 [place] (two) Medical times Branch daily. metroNIDAZO 2019- 2020- No [id number] 500mg Take 1 Univers LE 500 mg 01-04 tablet by ity of tablet 00:00: 00:00 mouth 2 [place] 00 :00 (two) Medical times Branch daily. phenytoin 2018- Yes 300mg 300 mg. Univ ers Extended 1-10 ity of 100 mg 00:00: [place] capsule 00 Medical Branch phenytoin 2017- Yes 300mg 300 mg. Univ ers Extended 1-10 ity of 100 mg 00:00: [place] capsule 00 Medical Branch cyclobenzap 2017-0 Yes 5mg Take 1 Univ ers rine 5 mg 6-29 tablet by ity o f tablet 00:00: mouth 3 00 (three) Medical times Branch daily. cyclobenzap 2017-0 Yes 5mg Take 1 Univ ers rine 5 mg 6-29 tablet by ity o f tablet 00:00: mouth 3 00 (three) Medical times Branch daily. cyclobenzap 2017-0 Yes 5mg Take 1 Univ ers rine 5 mg 6-29 tablet by ity o f tablet 00:00: mouth 3 00 (three) Medical times Branch daily. Vital Signs Vital Name Observation Time Observation Value Comments Source Systolic blood 2019-11-25 20:10:00 166 mm[Hg[facility] 2019-11-25 20:10:00 106 mm[facility]Hg[facility] 2019-11-25 20:07:00 97 /min [facility] Body temperature 2019-11-25 20:07:00 36.83 [facility] Respiratory rate 2019-11-25 20:07:00 18 /min [facility] Body weight 2019-11-25 20:07:00 108.863 kg [facility] Oxygen saturation in 2019-11-25 20:07:00 96 /min [facility] blood by [facility] Pulse oximetry Branch Systolic blood 2019-11-25 20:10:00 166 mm[Hg] [facility] Diastolic blood 2019-11-25 20:10:00 106 mm[Hg] [facility] 2019-11-25 20:07:00 97 /min [facility] Body temperature 2019-11-25 20:07:00 36.83 [facility] Respiratory rate 2019-11-25 20:07:00 18 /min [facility] Body weight 2019-11-25 20:07:00 108.863 kg [facility] Oxygen saturation in 2019-11-25 20:07:00 96 /min University Arterial blood by [facility] Pulse oximetry Branch Procedures This patient has no known procedures. Encounters Start End Encounter Admission Attending Care Care Encounter Source Date/Time Date/Time Type Type Clinicians Facility Department ID 2021-06-08 2021-06-08 [facility] [id number]00 [facility] l Outpati ent Clinics 2021-06-04 2021-06-04 [facility] [id number]00 [facility] l Outpati ent Clinics 2019-11-27 2019-11-27 Telephone [facility] [id number] [facility] 00:00:00 00:00:00 [facility] [id number] it y of [place] [id number] [place] as Professio [phone] [address] Office [facility] One 2019-11-27 2019-11-27 [facility] [id number] 00:00:00 00:00:00 [facility] [id number] [place] [id number] Professio [phone] [place] [address] Office [address] One 2019-11-25 2019-11-25 Urgent Pob1, Acute Care Clinic [facility] [id number]. [id number] [facility] 14:55:25 [facility]15[facility] [id number] ity of [place] [id number] [place] Professio [phone] [address] Office Building One 2019-11-25 2019-11-25 Urgent Pob1, Acute [place] [id number] 14:55:25 15:15:25 Care [facility] [id number] [place] [id number] Professio [phone] nal [facility] Office Building One 2019-11-25 2019-11-25 Outpatient R ZANA, [facility] [id number] 15:00:00 15:00:00 [facility] 2019-11-25 2019-11-25 Telephone Pob1, Acute [place] [id number] 00:00:00 00:00:00 [place] [id number] [place] [id number] Professio [phone] nal 0[address] Office Building One 2019-11-25 2019-11-25 Telephone Pob1, Acute [place] [id number] [facility] 00:00:00 00:00:00 [facility] [id number] ity of [place] [id number] [place] Professio [phone] Or dical [address] Office Building One Results Test Description Test Time Test Comments Results Result Comments Source SARS-COV2/RT-PCR ([facility]) 2020-02-29 10:51:00 Test Item Value Reference Range Interpretation Comme nts SARS-COV2/RT-PCR (test code = 1853445) Negative Not Detected, N egative SARS-COV-2 PERFORMING LAB (test code = 9540428) [facility] Negative result for this test determines that [...] individuals suspected of COVID-19 by their healthcare provider.This test [...] 564(g) of the Act.Fact Sheet for Healthcare Providers:https://www.[employer]/sites/default/files/product/documents/Fact_Shee q_UW_Upslgfzqz_Cmsg_BPMU-XiS-0.pdfFact Sheet for Healthcare Patients:https://www.[employer]/sites/default/files/product/ documents/Clgi_Foxsa_Nbejfrjx_Vqch_BWVS-TgG-3.pdfPerforming Laboratory:[facility], [place] [address]RSGXLOPTSUL ANTIBODIES, IGG AND [id number] 11:17:00 Test Item Value Reference Range Interpretation Comments ANTICARDIOLIPIN IGG ANTIBODY (BEAKER) < GPL (test code = 712) ANTICARDIOLIPIN IGM ANTIBODY (BEAKER) 0.6 MPL (test code = 713) Anticardiolipin IgG Result Interpretation: NEG:<20 GPL; U/mlPOS:>/=20 GPL;U/mlAnticardiolipinIgM Result Interpretation: NEG:<20 MPL; U/mlPOS:>/=20 MPL;U/[id number] 19:19:00 Test Item Value Reference Range Interpretation Comments HOMOCYSTEINE (BEAKER) (test code 19.1 umol/L 5.1-15.4 H = 642) HEMOGLOBIN [id number] 16:55:00 Test Item Value Reference Range Interpretation Comments HEMOGLOBIN A1C (BEAKER) (test code = 5.1 % 4.3-6.1 368) TSH/FREE T4 IF [id number] 16:00:00 Test Item Value Reference Range Interpretation Comments THYROID STIMULATING HORMONE 1.64 uIU/mL 0.35-4.94 (BEAKER) (test code = 772) VITAMIN B12 AND [id number] 16:00:00 Test Item Value Reference Range Interpretation Comments VITAMIN B12 (BEAKER) (test code = 241 pg/mL 213-816 774) FOLATE (BEAKER) (test code = 362) 3.7 ng/mL >=7.0 L Effective 07/08/2014: Folate Reference Range ChangeNew: >=7.0 Previous: >=5.4SEDIMENTATION [id number] 15:57:00 Test Item Value Reference Range Interpretation Comments SEDIMENTATION RATE, ERYTHROCYTE 8 mm/HR 0-20 (BEAKER) (test code = 766) LIPID [id number] 15:32:00 Test Item Value Reference Range Interpretation [...] Borderline 130-159 High 160-189 Very High >=190C-REACTIVE [id number] 15:30:00 Test Item Value Reference Range Interpretation Comments C-REACTIVE PROTEIN (BEAKER) (test 2.96 mg/dL 0.00-0.50 H code = 676) CBC W/PLT COUNT & AUTO [id number] 15:05:00 Test Item Value Reference Range Interpretation [...] K/ L 0.00-0.20 (test code = 417) [id number] 07:34:00 Test Item Value Reference Range Interpretation Comments MAGNESIUM (BEAKER) 2.0 mg/dL 1.6-2.6 Specimen slightly (test code = 627) hemolyzed BASIC METABOLIC [id number] 07:33:00 Test Item Value Reference Range Interpretation [...] S NOT APPLICABLE FOR DIALYSIS PATIEN TS. [id number] 07:27:00 Test Item Value Reference Range Interpretation Comments MAGNESIUM (BEAKER) (test code = 1.7 mg/dL 1.6-2.6 627) SCREEN, [id number] 13:54:00 Test Item Value Reference Range Interpretation Comments TEST URINE (BEAKER) (test Negative code = 583) [id number] 02:55:00 Test Item Value Reference Range Interpretation Comments MAGNESIUM (BEAKER) (test code = 1.8 mg/dL 1.6-2.6 627) PHENYTOIN LEVEL, [id number] 00:30:00 Test Item Value Reference Range Interpretation Comments PHENYTOIN (DILANTIN) (BEAKER) (test 7.3 ug/mL 10.0-20.0 L code = 605) HEPATIC FUNCTION [id number] 00:26:00 Test Item Value Reference Range Interpretation [...] = 20 U/L 6-55 347) BASIC METABOLIC [id number] 00:26:00 Test Item Value Reference Range Interpretation [...] S NOT APPLICABLE FOR DIALYSIS PATIEN TS. [id number] 00:26:00 Test Item Value Reference Range Interpretation Comments ALBUMIN (BEAKER) (test code = 1145) 3.8 g/dL 3.5-5.0 CBC W/PLT COUNT & AUTO [id number] 00:16:00 Test Item Value Reference Range Interpretation [...]
[2021-07-04] MEDS ORDERED: MORPHINE 4 MG/ML SYR ONE ×2 (09:54→13:24)
[2021-07-04] MEDS ORDERED: NA CHLORIDE 0.9% 1,000 ML ONE (09:54)
[2021-07-04] MEDS ORDERED: ONDANSETRON 4 MG/2 ML VIAL ONE ×2 (09:55→13:24)
[2021-07-04] MEDS ORDERED: FOSPHENYTOIN PE 1,000 MG in NA CHLORIDE 0.9% 100 ML IV ONE (10:00)
--- NOTE | 2021-07-04 10:27 | RAD REPORT ---
EXAM DESCRIPTION: CT - CTHCSPWOC - 07/04/2021 10:04 am CLINICAL HISTORY: Trauma, head and neck injury. PAIN COMPARISON: Head C Spine Mpr Wo Con dated 02/17/2020; Head C Spine Mpr Wo Con dated 10/01/2019; Head C Spine Mpr Wo Con dated 08/19/2019; Head C Spine Mpr Wo Con dated 02/10/2018 TECHNIQUE: Axial 5 mm thick images of the head were obtained. Axial 2 mm thick images of the cervical spine were obtained with sagittal and coronal reconstruction images generated and reviewed. All CT scans are performed using dose optimization technique as appropriate and may include automated exposure control or mA/KV adjustment according to patient size. FINDINGS: CT HEAD WITHOUT CONTRAST: No acute hemorrhage, hydrocephalus or extra-axial collection is identified.No areas of brain edema or midline shift. The paranasal sinuses and mastoids are clear.The calvarium is intact. CT CERVICAL SPINE WITHOUT CONTRAST: No fracture or subluxation.No prevertebral soft tissues swelling is identified. Mild multilevel cervi hellen spondylosis. Reversal of normal cervical lordosis is likely related to position. IMPRESSION: No acute intracranial or cervical spine findings.
[2021-07-04 10:31] LABS: Absolute Lymphocytes (CBC) 1.2 K/uL (0.7-4.9); Basophils % 0.3 % (0-1.3); Hematocrit 47.8 % (36.0-45.0); Lymphocytes % 9.3 % (15.3-44.8); MPV 8.2 fL (7.6-11.3); RBC Red Blood Cell Count 5.36 M/uL (3.86-4.86)
[2021-07-04 10:37] LABS: Protime INR 0.96
--- NOTE | 2021-07-04 10:51 | RAD REPORT ---
EXAM DESCRIPTION: RAD - Shoulder Right 2 View - 07/04/2021 10:24 am CLINICAL HISTORY: PAIN COMPARISON: Shoulder Right 2 View dated 10/01/2019 FINDINGS: No acute fracture. No malalignment. Mild right AC joint and moderate glenohumeral joint de generative changes IMPRESSION: No acute osseous abnormality involving the right shoulder.
[2021-07-04 12:27] LABS: Urine Blood Trace-intact (Negative); Urine Glucose Negative (Negative); Urine Protein Negative (Negative); Urine Specific Gravity 1.025 (1.005-1.030)
[2021-07-04 12:31] LABS: ALT/SGPT 33 U/L (12-78); AST/SGOT 22 U/L (15-37); Albumin 3.5 g/dL (3.4-5.0); Alkaline Phosphatase 111 U/L (45-117); BUN Blood Urea Nitrogen 11 mg/dL (7-18); Bicarbonate 26 mmol/L (21-32); Bilirubin Direct 0.2 mg/dL (0-0.2); Bilirubin Total 0.6 mg/dL (0.2-1.0); Glucose Level 110 mg/dL (74-106); Potassium 4.2 mmol/L (3.5-5.1); Protein, Total 7.2 g/dL (6.4-8.2); Sodium Level 141 mmol/L (136-145)
[2021-07-04 12:32] LABS: Phenytoin (Dilantin) Level < 0.4 ug/mL (10.0-20.0)
[2021-07-04 12:49] LABS: Barbiturates NEGATIVE (NEGATIVE); Benzodiazepines NEGATIVE (NEGATIVE); Cocaine NEGATIVE (NEGATIVE); METHAMPHETAM NEGATIVE (NEGATIVE); Methadone NEGATIVE (NEGATIVE); Opiates POSITIVE (NEGATIVE); Phencyclidine NEGATIVE (NEGATIVE); THC Cannibis POSITIVE (NEGATIVE)
[2021-07-04 12:53] LABS: Urine Specific Gravity/Preg 1.025 (1.005-1.030)
--- NOTE | 2021-07-04 13:23 | RAD REPORT ---
EXAM DESCRIPTION: CTAbdomen Pelvis Wo Contrast - 07/04/2021 1:08 pm CLINICAL HISTORY: PAIN COMPARISON: [place] Protocol dated 07/17/2020; Abdomen Pelvis W Contrast dated 02/29/2020; [place] Prot ocol dated 02/28/2020; Abdomen Pelvis W Contrast dated 08/19/2019 TECHNIQUE: CT of the abdomen and pelvis was performed. All CT scans are performed using dose optimization technique as appropriate and may include automated exposure control or mA/KV adjustment according to patient size. FINDINGS: Lower chest: No acute abnormality. Liver: No acute abnormality or suspicious lesions. Biliary: Cholecystectomy Stomach: No significant focal abnormality. Duodenum: No significant focal abnormality. Pancreas: No significant abnormality. Spleen: No significant abnormality. Adrenal: No suspicious lesions. Kidney/ureter: No hydronephrosis. Nonobstructing bilateral renal calculi. Retroperitoneum: No retroperitoneal adenopathy. Vascular: No aneurysm. Bowel: No significant focal abnormality. Normal appendix . Peritoneum: No ascites or free air. Bladder: Grossly unremarkable. Reproductive: No adnexal masses. Bones: No acute fracture. Other: n/a IMPRESSION: No acute intra-abdominal or pelvic finding. Nonobstructive bilateral nephrolithiasis. Ch olecystectomy. Normal appendix.
--- NOTE | 2021-07-04 13:27 | ER ---
Nurse's Notes [facility] Name: Nelia Corley Age: 41 yrs Sex: Female : 1980 Arrival Date: 07/04/2021 Time: 09:24 Bed 4 Private MD: Diagnosis: Epileptic seizures related to external causes;Pain in right shoulder;Elevated white blood cell count Presentation: 07/04 09:27 Chief complaint: Patient states: Had a seizure in bed this morning, rolled out of bed. ll1 R shoulder pain since. Coronavirus screen: Vaccine status: Patient reports being unvaccinated. Client denies travel out of the [place] in the last 14 days. At this time, the client does not indicate any symptoms associated with coronavirus-19. Ebola Screen: Patient denies travel to an Ebola-affected area in the 21 days before illness onset. Initial Sepsis Screen: Does the patient meet any 2 criteria? No. Patient's initial sepsis screen is negative. Does the patient have a suspected source of infection? No. Patient's initial sepsis screen is negative. Risk Assessment: Do you want to hurt yourself or someone else? Patient reports no desire to harm self or others. Onset of symptoms was July 04, 2021. 09:27 Method Of Arrival: EMS ll1 09:27 Acuity: JENNIFER 3 ll1 Historical: - Allergies: 09:28 Ceclor; ll1 09:28 Sulfa (Sulfonamide Antibiotics); ll1 09:28 Ultram; ll1 - PMHx: 09:28 ADD/ADHD; NSTEMI; right rotator cuff torn; Kidney stones; Hypertension; Hyperlipidemia; ll1 CVA; Anxiety; Seizures; - Immunization history:: Client reports having NOT received the Covid vaccine. - Social history:: Smoking status: Patient denies any tobacco usage or history of. - Family history:: not pertinent. Screenin:44 Abuse screen: Denies threats or abuse. Denies injuries from another. Nutritional jt3 screening: No deficits noted. Tuberculosis screening: No symptoms or risk factors identified. Fall Risk Fall in past 12 months (25 points). Assessment: 10:44 General: Appears distressed, uncomfortable. Pain: Complains of pain in right arm Pain jt3 does not radiate. Pain currently is 8 out of 10 on a pain scale. Quality of pain is described as throbbing. Neuro: Level of Consciousness is awake, alert, Oriented to person, place, time, situation, Speech is normal, Facial symmetry appears normal, Pupils are PERRLA, Reports headache. Cardiovascular: Rhythm is sinus bradycardia. Respiratory: No deficits noted. 11:08 Reassessment: Pt. is more calm and pain has decreased after the morphine. Alert and jt3 oriented x4. Denies needs at this time. Pt. screened low risk on the CSSRS. Denies any thoughts of hurting herself. Vital Signs: 09:27 Weight 106.14 kg; Height 5 ft. 1 in. (154.94 cm); Pain 9/10; ll1 09:40 BP 161 / 95; Pulse 72; Resp 18; Temp 98.2; Pulse Ox 97% on R/A; ll1 11:14 BP 124 / 81; Pulse 59; Resp 17; Pulse Ox 95% on R/A; jt3 14:03 BP 168 / 85; Pulse 61; Resp 17; Pulse Ox 98% on R/A; jt3 09:27 Body Mass Index 44.21 (106.14 kg, 154.94 cm) ll1 NIH Stroke Scale Scores: 09:48 NIHSS Score: 0 isaak ED Course: 09:24 Patient arrived in ED. iw 09:27 Cj Mckeon MD is Attending Physician. isaak 09:28 Triage completed. ll1 09:28 Arm band placed on Patient placed in an exam room, on a stretcher. ll1 09:39 Missed attempt(s): 22 gauge in left hand. Bleeding controlled, band aid applied, ll1 catheter tip intact. 10:04 CT Head C Spine In Process Unspecified. EDMS 10:07 Franco Sidhu, RN is Primary Nurse. jt3 10:24 Shoulder Right (2 View) XRAY In Process Unspecified. EDMS 10:44 Patient has correct armband on for positive identification. Bed in low position. Call jt3 light in reach. Side rails up X2. Seizure precautions initiated. sugar sampler on. Pulse ox on. NIBP on. 10:44 No provider procedures requiring assistance completed. Inserted saline lock: 22 gauge jt3 in right hand, using aseptic technique. 12:28 Urine Dipstick-Ancillary Sent. jt3 12:41 Urine Culture Sent. jt3 12:41 Urine --Ancillary (enter results) Sent. jt3 13:08 CT Abd/Pelvis - Without Contrast In Process Unspecified. EDMS 13:26 Max Vidal MD is Referral Physician. isaak 13:26 David Wright MD is Referral Physician. isaak Administered Medications: 10:43 Drug: Fosphenytoin 1 grams Route: IVPB; Site: right hand; jt3 11:15 Follow up: Response: No adverse reaction jt3 10:43 Drug: NS 0.9% 1000 ml Route: IV; Rate: 1 bolus; Site: right hand; jt3 11:15 Follow up: Response: No adverse reaction jt3 10:44 Drug: morphine 4 mg Route: IVP; Site: right hand; jt3 11:15 Follow up: Response: No adverse reaction jt3 10:48 Drug: Zofran (Ondansetron) 4 mg Route: IVP; Site: right hand; jt3 11:15 Follow up: Response: No adverse reaction jt3 13:36 Drug: morphine 4 mg Route: IVP; Site: right hand; jt3 14:04 Follow up: Response: No adverse reaction jt3 13:36 Drug: Zofran (Ondansetron) 4 mg Route: IVP; Site: right hand; jt3 14:04 Follow up: Response: No adverse reaction jt3 Outcome: 13:26 Discharge ordered by . [facility] 14:03 Discharged to home ambulatory. jt3 14:03 Condition: improved 14:03 Discharge instructions given to patient, Instructed on discharge instructions, follow up and referral plans. medication usage, Demonstrated understanding of instructions, medications, Prescriptions given X 2. 14:05 Patient left the ED. jt3 NIH Stroke Scale - NIH Stroke Score Date: 07/04/2021 Time: 09:48 Total Score = 0 1a. Level of Consciousness (LOC) - 0(Alert) 1b. Level of Consciousness (LOC) (Month \T\ Age) - 0(Both) 1c. LOC Commands (Open \T\ Closes Eyes/Bark Skinner) - 0(Both) 2. Best Gaze (Lateral Gaze Paresis) - 0(Normal) 3. Visual Field Loss - 0(No visual loss) 4. Facial Palsy - 0(Normal) 5a. Left Arm: Motor (10-second hold) - 0(No drift) 5b. Right Arm: Motor (10-second hold) - 0(No drift) 6a. Left Leg: Motor (5-second hold - always test supine) - 0(No drift) 6b. Right Leg: Motor (5-second hold - always test supine) - 0(No drift) 7. Limb Ataxia (finger/nose \T\ heel/pozo - test with eyes open) - 0(Absent) 8. Sensory Loss (pinprick arms/legs/face) - 0(Normal) 9. Best Language: Aphasia (description/naming/reading) - 0(No aphasia) 10. Dysarthria (speech clarity - read or repeat words) - 0(Normal) 11. Extinction and Inattention (visual/tactile/auditory/spatial/personal) - 0(No abnormality) Initials: isaak Signatures: Dispatcher [employer] jC Bray MD MD cha Williams, Irene, RN Theresa Shaffer RN RN ll1 Franco Sidhu RN RN jt3
--- NOTE | 2021-07-04 13:27 | EDPHYS ---
Physician Documentation [facility] Name: Nelia Corley Age: 41 yrs Sex: Female : 1980 Arrival Date: 07/04/2021 Time: 09:24 Bed 4 Private MD: Cj Callahan HPI: 07/04 09:48 This 41 yrs old Female presents to ER via EMS with complaints of seizure , isaak fall out of bed, right shoulder pain. 09:48 The patient or guardian complains of decreased range of motion, pain, that is acute. isaak right shoulder. Context: The problem was sustained at home, resulted from seizure and fall. Onset: The symptoms/episode began/occurred this morning. Modifying factors: the symptoms are alleviated by remaining still, The symptoms are aggravated by movement, rotation of arm. Associated signs and symptoms: The patient has no apparent associated signs or symptoms. Character of seizure(s): Loss of consciousness: it is not known if the patient experienced loss of consciousness, Motor activity: the motor activity is unknown, Incontinence: none, Apnea: the patient did not experience apnea, Circulation: the patient did not experience evidence of pulse disturbance. Seizure onset: the onset is not known. Seizure Hx: Seizure medications: phenytoin. Historical: - Allergies: 09:28 Ceclor; ll1 09:28 Sulfa (Sulfonamide Antibiotics); ll1 09:28 Ultram; ll1 - PMHx: 09:28 ADD/ADHD; NSTEMI; right rotator cuff torn; Kidney stones; Hypertension; Hyperlipidemia; ll1 CVA; Anxiety; Seizures; - Immunization history:: Client reports having NOT received the Covid vaccine. - Social history:: Smoking status: Patient denies any tobacco usage or history of. - Family history:: not pertinent. ROS: 09:48 Constitutional: Negative for fever, chills, and weight loss, Eyes: Negative for injury, isaak pain, redness, and discharge, ENT: Negative for injury, pain, and discharge, Neck: Negative for injury, pain, and swelling, Cardiovascular: Negative for chest pain, palpitations, and edema, Respiratory: Negative for shortness of breath, cough, wheezing, and pleuritic chest pain, Abdomen/GI: Negative for abdominal pain, nausea, vomiting, diarrhea, and constipation, Back: Negative for injury and pain, : Negative for injury, bleeding, discharge, and swelling, Skin: Negative for injury, rash, and discoloration, Neuro: Negative for headache, weakness, numbness, tingling, and seizure, Psych: Negative for depression, anxiety, suicide ideation, homicidal ideation, and hallucinations, Allergy/Immunology: Negative for hives, rash, and allergies, Endocrine: Negative for neck swelling, polydipsia, polyuria, polyphagia, and marked weight changes, Hematologic/Lymphatic: Negative for swollen nodes, abnormal bleeding, and unusual bruising. 09:48 MS/extremity: Positive for decreased range of motion, pain, tenderness, of the anterior aspect of right shoulder and posterior aspect of right shoulder. Exam: 09:48 Constitutional: This is a well developed, well nourished patient who is awake, alert, isaak and in no acute distress. Head/Face: Normocephalic, atraumatic. Eyes: Pupils equal round and reactive to light, extra-ocular motions intact. Lids and lashes normal. Conjunctiva and sclera are non-icteric and not injected. Cornea within normal limits. Periorbital areas with no swelling, redness, or edema. ENT: Nares patent. No nasal discharge, no septal abnormalities noted. Tympanic membranes are normal and external auditory canals are clear. Oropharynx with no redness, swelling, or masses, exudates, or evidence of obstruction, uvula midline. Mucous membranes moist. Neck: Trachea midline, no thyromegaly or masses palpated, and no cervical lymphadenopathy. Supple, full range of motion without nuchal rigidity, or vertebral point tenderness. No Meningismus. Chest/axilla: Normal chest wall appearance and motion. Nontender with no deformity. No lesions are appreciated. Cardiovascular: Regular rate and rhythm with a normal S1 and S2. No gallops, murmurs, or rubs. Normal PMI, no JVD. No pulse deficits. Respiratory: Lungs have equal breath sounds bilaterally, clear to auscultation and percussion. No rales, rhonchi or wheezes noted. No increased work of breathing, no retractions or nasal flaring. Abdomen/GI: Soft, non-tender, with normal bowel sounds. No distension or tympany. No guarding or rebound. No evidence of tenderness throughout. Back: No spinal tenderness. No costovertebral tenderness. Full range of motion. Skin: Warm, dry with normal turgor. Normal color with no rashes, no lesions, and no evidence of cellulitis. Neuro: Awake and alert, GCS 15, oriented to person, place, time, and situation. Cranial nerves II-XII grossly intact. Motor strength 5/5 in all extremities. Sensory grossly intact. Cerebellar exam normal. Normal gait. Psych: Awake, alert, with orientation to person, place and time. Behavior, mood, and affect are within normal limits. 09:48 Musculoskeletal/extremity: Extremities: noted in the anterior aspect of right shoulder and posterior aspect of right shoulder: decreased ROM, pain. 09:57 ECG was reviewed by the Attending Physician. isaak Vital Signs: 09:27 Weight 106.14 kg; Height 5 ft. 1 in. (154.94 cm); Pain 9/10; ll1 09:40 BP 161 / 95; Pulse 72; Resp 18; Temp 98.2; Pulse Ox 97% on R/A; ll1 11:14 BP 124 / 81; Pulse 59; Resp 17; Pulse Ox 95% on R/A; jt3 14:03 BP 168 / 85; Pulse 61; Resp 17; Pulse Ox 98% on R/A; jt3 09:27 Body Mass Index 44.21 (106.14 kg, 154.94 cm) ll1 NIH Stroke Scale Scores: 09:48 NIHSS Score: 0 isaak MDM: 09:28 Patient medically screened. isaak 09:57 Differential diagnosis: seizure. Data reviewed: vital signs, nurses notes, lab test isaak result(s), EKG, radiologic studies, CT scan, plain films. Data interpreted: cook chef: rate is 72 beats/min, rhythm is regular, Pulse oximetry: on room air is 97 %. Test interpretation: by ED physician or midlevel provider: ECG, plain radiologic studies. Counseling: I had a detailed discussion with the patient and/or guardian regarding: the historical points, exam findings, and any diagnostic results supporting the discharge/admit diagnosis, lab results, radiology results, the need for outpatient follow up, for definitive care, a family practitioner, a neurologist, a orthopedic surgeon. 07/04 09:47 Order name: Acetaminophen; Complete Time: 12:53 isaak 07/04 09:47 Order name: Basic Metabolic Panel; Complete Time: 12:53 isaak 07/04 09:47 Order name: CBC with Diff; Complete Time: 11:07 [facility] 07/04 09:47 Order name: ETOH Level; Complete Time: 12:19 [facility] 07/04 09:47 Order name: Hepatic Function; Complete Time: 12:53 [facility] 07/04 09:47 Order name: PT-INR; Complete Time: 11:07 [facility] 07/04 09:47 Order name: Ptt, Activated; Complete Time: 11:07 [facility] 07/04 09:47 Order name: Salicylate; Complete Time: 11:07 [facility] 07/04 09:47 Order name: Urine Drug Screen; Complete Time: 12:53 [facility] 07/04 09:47 Order name: CT Head C Spine; Complete Time: 11:07 [facility] 07/04 09:47 Order name: Dilantin; Complete Time: 12:53 [facility] 07/04 11:30 Order name: Urine Culture [facility] 07/04 12:27 Order name: Urine Dipstick-Ancillary [facility] 07/04 12:27 Order name: Urine --Ancillary (enter results); Complete Time: 13:22 07/04 09:47 Order name: EKG; Complete Time: 09:48 [facility] 07/04 09:47 Order name: EKG - Nurse/Tech; Complete Time: 10:27 [facility] 07/04 09:47 Order name: IV Saline Lock; Complete Time: 10:27 [facility] 07/04 09:47 Order name: Labs collected and sent; Complete Time: 10:27 [facility] 07/04 09:47 Order name: Suicide Screening ([place]); Complete Time: 11:07 [facility] 07/04 09:47 Order name: Urine Dipstick-Ancillary (obtain specimen); Complete Time: 12:46 [facility] 07/04 09:47 Order name: Seizure Precautions; Complete Time: 09:52 [facility] 07/04 09:47 Order name: Shoulder Right (2 View) XRAY; Complete Time: 11:07 [facility] 07/04 12:19 Order name: CT Abd/Pelvis - Without Contrast [facility] 07/04 09:56 Order name: Sling; Complete Time: 11:52 [facility] EC:57 Rate is 73 beats/min. Rhythm is regular. QRS [place] is Normal. [place] interval is normal. QRS isaak interval is normal. QT interval is normal. No Q waves. T waves are Normal. No ST changes noted. Clinical impression: Normal ECG and No evidence of ischemia. Interpreted by me. Reviewed by me. Administered Medications: 10:43 Drug: Fosphenytoin 1 grams Route: IVPB; Site: right hand; jt3 11:15 Follow up: Response: No adverse reaction jt3 10:43 Drug: NS 0.9% 1000 ml Route: IV; Rate: 1 bolus; Site: right hand; jt3 11:15 Follow up: Response: No adverse reaction jt3 10:44 Drug: morphine 4 mg Route: IVP; Site: right hand; jt3 11:15 Follow up: Response: No adverse reaction jt3 10:48 Drug: Zofran (Ondansetron) 4 mg Route: IVP; Site: right hand; jt3 11:15 Follow up: Response: No adverse reaction jt3 13:36 Drug: morphine 4 mg Route: IVP; Site: right hand; jt3 14:04 Follow up: Response: No adverse reaction jt3 13:36 Drug: Zofran (Ondansetron) 4 mg Route: IVP; Site: right hand; jt3 14:04 Follow up: Response: No adverse reaction jt3 Disposition Summary: 07/04/21 13:26 Discharge Ordered Location: Home isaak Problem: new isaak Symptoms: have improved isaak Condition: Stable isaak Diagnosis - Epileptic seizures related to external causes isaak - Pain in right shoulder siaak - Elevated white blood cell count isaak Followup: isaak - With: Private Physician - When: 2 - 3 days - Reason: Recheck today's complaints, Continuance of care, Re-evaluation by your physician Followup: isaak - With: - When: 2 - 3 days - Reason: Recheck today's complaints, Re-evaluation by your physician Followup: isaak - With: - When: 2 - 3 days - Reason: Recheck today's complaints, Re-evaluation by your physician Discharge Instructions: - Discharge Summary Sheet isaak - Joint Pain isaak - Musculoskeletal Pain isaak - Seizure, Adult isaak - Shoulder Pain isaak - Shoulder Pain, [id number] isaak - Seizure, Adult, [id number] isaak Forms: - Medication Reconciliation Form isaak - Thank You Letter isaak - Antibiotic Education isaak - Prescription Opioid Use isaak Prescriptions: - Dilantin Kapseal 100 mg Oral Capsule - take 1 capsule by ORAL route every 8 hours; 30 capsule; Refills: 0, Product isaak Selection Permitted - Tylenol-Codeine #3 300 mg-30 mg Oral - take 2 tablet by ORAL route every 4-6 hours; 20 tablet; Refills: 0, Product isaak Selection Permitted NIH Stroke Scale - NIH Stroke Score Date: 07/04/2021 Time: 09:48 Total Score = 0 1a. Level of Consciousness (LOC) - 0(Alert) 1b. Level of Consciousness (LOC) (Month \T\ Age) - 0(Both) 1c. LOC Commands (Open \T\ Closes Eyes/Loom Repairer) - 0(Both) 2. Best Gaze (Lateral Gaze Paresis) - 0(Normal) 3. Visual Field Loss - 0(No visual loss) 4. Facial Palsy - 0(Normal) 5a. Left Arm: Motor (10-second hold) - 0(No drift) 5b. Right Arm: Motor (10-second hold) - 0(No drift) 6a. Left Leg: Motor (5-second hold - always test supine) - 0(No drift) 6b. Right Leg: Motor (5-second hold - always test supine) - 0(No drift) 7. Limb Ataxia (finger/nose \T\ heel/pozo - test with eyes open) - 0(Absent) 8. Sensory Loss (pinprick arms/legs/face) - 0(Normal) 9. Best Language: Aphasia (description/naming/reading) - 0(No aphasia) 10. Dysarthria (speech clarity - read or repeat words) - 0(Normal) 11. Extinction and Inattention (visual/tactile/auditory/spatial/personal) - 0(No abnormality) Initials: isaak Signatures: Dispatcher [employer] EDMS Cj Mckeon MD MD cha Lewis, Lynsay RN RN ll1 Franco Sidhu RN RN jt3 Corrections: (The following items were deleted from the chart) 12:23 11:30 Abdomen Pelvis W Con+CT.RAD.BRZ ordered. EDMS EDMS
[2021-07-04 14:50] VITALS: TEMP 98.2
[2021-07-04 14:58] VITALS: BP 168/85; O2SAT 98
== END 2021-07-04 14:05 | disposition home or self-care (01) ==
LOC: ER 09:23
DX: M25.511 Pain in right shoulder (principal); D72.829 Elevated white blood cell count, unspecified; I10 Essential (primary) hypertension; W06.XXXA Fall from bed, initial encounter; Z88.2 Allergy status to sulfonamides; Z88.5 Allergy status to narcotic agent; Z88.8 Allergy status to other drugs, medicaments and biological substances
CPT/HCPCS: 93005; 87088; 85025; 87086; 80048; 36415; 80320; 80329 ×2; 81025; 85610; 80076; 85730; 80185; 81003; 80307; 70450; 72125; 74176; 73030; 96375; 96374; 99284; Q2009; J7030; J2405 ×2

== ENCOUNTER 2021-11-16 11:32 | Emergency (ER) | payer OTHER ==
--- OUTSIDE RECORDS SUMMARY | 2021-11-16 11:36 | XMS REPORT | Continuity of Care Document ---
:1980 Author Organization [facility] t Address [address] [place] [address] Care Team Providers Name Role Phone [place] Attending Clinician Unavailable Zana KITCHEN STEWARD/STEWARDESS Attending Clinician Pob1, Care Clinic Attending Clinician Unavailable ZANA Attending Clinician Unavailable LUIS E Attending Clinician Unavailable LUIS E Admitting Clinician Unavailable Payers Payer Name Policy Type Policy Number Effective Date Expiration Date S ource Problems Condition Condition Condition Status Onset Resolution Last Treating Co mments Source Name Details Category Date Date Treatment Clinician Date Essential Essential Disease Active Uni vers hypertensi hypertensi 06 it y of on on 00:00: [place] [facility] Anxiety Anxiety Disease Active 2020-0 Univers 4-06 ity of 00:00: [address] No known No known Disease Unive rs active active ity of problems problems [facility] Allergies, Adverse Reactions, Alerts Allergy Allergy Status Severity Reaction(s) Onset Inactive Treating Comm ents Source Name Type Date Date Clinician Tramadol Propensi Active Other - See 2019-0 Seizure Univers ty to comments 01-10 ity of adverse 00:00: [place] reaction 00 Medical [facility] TRAMADOL DRUG Active Other-Cmnt Univ ers INGREDI 01-10 ity of 00:00: 00 [facility] Ketorola Propensi Active Other - See 2019-0 Seizure Univers c ty to comments - ity of adverse 00:00: [place] reaction 00 Medical s [place] KETOROLA DRUG Active Other-Cmnt Univ ers C INGREDI 5-17 ity of 00:00: [place] 00 Medical Branch [...] Date Quantity Comments Source Sex Assigned At [facility] Smoking Status Start Date Stop Date Source Current every day smoker 2019-11-25 00:00:00 [facility] Unknown if ever smoked Universit y [facility] [place] Medications Ordered Filled Start Stop Current Ordering Indication Dosage Frequency Signature Comments Components Source Medication Medication Date Date Medication? Clinician (SIG) Name Name lisinopril 2020-0 Yes 10mg Take 10 mg U nivers 10 mg 4-06 by mouth ity of tablet 20:10: daily. [address] lisinopril 2019-0 Yes 10mg Take 10 mg U nivers 10 mg 4-06 by mouth ity of tablet 20:10: daily. [address] hydrOXYzine 2019- 2020- No [id number] 50mg Take 1 Univers 50 mg 11-24 05-07 tablet by ity of tablet 00:00: 04:59 mouth 3 [place] 00 :00 (three) Medical times Branch daily as needed for Anxiety for up to 30 days. albuterol 2019- 2020- No [id number] 2{puff} Inhale 2 Univers (VENTOLIN - 05-07 Puffs ity of HFA) 90 00:00: 04:59 every 6 [place] mcg/actuati 00 :00 (six) Medical on inhaler hours as Branc h needed for Shortness of Breath or Chest tightness for up to 30 days. hydrOXYzine 2019- 2020- No [id number] 50mg Take 1 Univers 50 mg - 05-07 tablet by ity of tablet 00:00: 04:59 mouth 3 [place] 00 :00 (three) Medical times Branch daily as needed for Anxiety for up to 30 days. albuterol 2019- No [id number] 2{puff} Inhale 2 Univers (VENTOLIN 11-24 05-07 Puffs ity of HFA) 90 00:00: 04:59 every 6 [place] mcg/actuati 00 :00 (six) Medical on inhaler hours as Branc h needed for Shortness of Breath or Chest tightness for up to 30 days. benzonatate 2019- No [id number] 100mg Take 1 Univers (TESSALON - 04-21 capsule by ity of PERLES) 100 00:00: 04:59 mouth 3 [place] mg capsule 00 :00 (three) Medica l times Branch daily for 14 days. benzonatate 2019-2019- No [id number] 100mg Take 1 Univers (TESSALON - 04-21 capsule by ity of PERLFusion-io) 100 00:00: 04:59 mouth 3 [place] capsule 00 :00 (three) Medica l times Branch daily for 14 days. amoxicillin 2019- No [id number] 1{tbl} Take 1 Univers -clavulanat 4- 04-17 tablet by it y of e 00:00: 04:59 mouth 2 [place] (AUGMENTIN) 00 :00 (two) Medical 875-125 mg times Branch per tablet daily for 10 days. amoxicillin 2019- No [id number] 1{tbl} Take 1 Univers -clavulanat 4-06 04-17 tablet by it y of e 00:00: 04:59 mouth 2 [place] (AUGMENTIN) 00 :00 (two) Medical 875-125 mg times Branch per tablet daily for 10 days. traMADOL 50 2018- Yes [id number] 50mg Take 1 Univers mg tablet 5-23 tablet by ity o f 00:00: mouth [place] 00 every 6 Medical (six) Branch hours as needed for Pain (scale 1-3). ondansetron 2018- Yes [id number] 4mg Take 1 Univers (ZOFRAN 5-23 tablet by ity of ODT) 4 mg 00:00: mouth [place] disintegrat 00 every 8 Medic al ing tablet (eight) Branch hours as needed for Nausea and Vomiting (N/V). traMADOL 50 2018- Yes [id number] 50mg Take 1 Univers mg tablet 5-23 tablet by ity o f 00:00: mouth [place] 00 every 6 Medical (six) Branch hours as needed for Pain (scale 1-3). ondansetron 2018- Yes [id number] 4mg Take 1 Univers (ZOFRAN 5-23 tablet by ity of ODT) 4 mg 00:00: mouth [place] disintegrat 00 every 8 Medic al ing tablet (eight) Branch hours as needed for Nausea and Vomiting (N/V). traMADOL 50 Yes [id number] 50mg Take 1 Univers mg tablet 5-23 tablet by ity o f 00:00: mouth [place] 00 every 6 Medical (six) Branch hours as needed for Pain (scale 1-3). ondansetron Yes [id number] 4mg Take 1 Univers (ZOFRAN 5-23 tablet by ity of ODT) 4 mg 00:00: mouth [place] disintegrat 00 every 8 Medic al ing tablet (eight) Branch hours as needed for Nausea and Vomiting (N/V). ondansetron Yes [id number] 4mg Take 1 Univers (ZOFRAN) 4 5-17 tablet by ity of mg tablet 00:00: mouth [place] 00 every 8 Medical (eight) Branch hours as needed for Nausea and Vomiting (N/V). tamsulosin 2018- Yes [id number] .4mg Take 1 U nivers 0.4 mg 24 5-17 capsule by ity of hr capsule 00:00: mouth at [place] as 00 bedtime. Medical Branch pantoprazol 2018- Yes [id number] 40mg Take 1 Univers e 5-17 tablet by ity of (PROTONIX) 00:00: mouth [place] 40 mg EC 00 daily. Medical tablet Branch ketorolac 2018- Yes [id number] 10mg Take 1 Un yesika 10 mg 5-17 tablet by ity of tablet 00:00: mouth [place] 00 every 6 Medical (six) Branch hours as needed for Alternate with [place] for pain scale 4-6. ondansetron 2018- Yes [id number] 4mg Take 1 Univers (ZOFRAN) 4 5-17 tablet by ity of mg tablet 00:00: mouth [place] 00 every 8 Medical (eight) Branch hours as needed for Nausea and Vomiting (N/V). tamsulosin 2019-0 Yes [id number] .4mg Take 1 U nivers 0.4 mg 24 5-17 capsule by ity of hr capsule 00:00: mouth at [place] 00 bedtime. Medical Branch pantoprazol 2018-0 Yes [id number] 40mg Take 1 Univers e 5-17 tablet by ity of (PROTONIX) 00:00: mouth [place] 40 mg EC 00 daily. Medical tablet Branch ketorolac 2018-0 Yes [id number] 10mg Take 1 Un yesika 10 mg 5-17 tablet by ity of tablet 00:00: mouth [place] 00 every 6 Medical (six) Branch hours as needed for Alternate with [place] for pain scale 4-6. ondansetron 2018- Yes [id number] 4mg Take 1 Univers (ZOFRAN) 4 5-17 tablet by ity of mg tablet 00:00: mouth [place] 00 every 8 Medical (eight) Branch hours as needed for Nausea and Vomiting (N/V). tamsulosin 2018- Yes [id number] .4mg Take 1 U nivers 0.4 mg 24 5-17 capsule by ity of hr capsule 00:00: mouth at [place] 00 bedtime. Medical Branch pantoprazol Yes [id number] 40mg Take 1 Univers e 5-17 tablet by ity of (PROTONIX) 00:00: mouth [place] 40 mg EC 00 daily. Medical tablet Branch ketorolac 2018-0 Yes [id number] 10mg Take 1 Un yesika 10 mg 5-17 tablet by ity of tablet 00:00: mouth [place] 00 every 6 Medical (six) Branch hours as needed for Alternate with [place] for pain scale 4-6. ciprofloxac 2019-0 Yes [id number] 500mg Take 1 Univers in HCl 500 5-17 tablet by ity of mg tablet 00:00: mouth 2 [place] 00 (two) Medical times Branch daily. metroNIDAZO 2019-0 Yes [id number] 500mg Take 1 Univers LE 500 mg 5-17 tablet by ity o f tablet 00:00: mouth 2 [place] 00 (two) Medical times Branch daily. ciprofloxac 2019-0 2020- No [id number] 500mg Take 1 Univers in HCl 500 5-17 04-06 tablet by ity of mg tablet 00:00: 00:00 [place] 2 [place] :[place] (two) Medical times Branch daily. metroNIDAZO 2019-0 2020- No [id number] 500mg Take 1 Univers LE 500 mg -05 12- tablet by ity of tablet 00:00: 00:00 [...] ity o f tablet 00:00: mouth 3 [place] 00 (three) Medical times Branch daily. cyclobenzap 2017-0 Yes 5mg Take 1 Univ ers rine 5 mg 6-29 tablet by ity o f tablet 00:00: mouth 3 [place] 00 (three) Medical times Branch daily. cyclobenzap 2017-0 Yes 5mg Take 1 Univ ers rine 5 mg 6-29 tablet by ity o f tablet 00:00: mouth 3 [place] 00 (three) Medical times Branch daily. Vital Signs Vital Name Observation Time Observation Value Comments Source Systolic blood 2019-11-25 20:10:00 166 mm[Hg] [facility] Diastolic blood 2019-11-25 20:10:00 106 mm[Hg] Unive [facility] Heart rate 2019-11-25 20:07:00 97 /min [facility] Body temperature 2019-11-25 20:07:00 36.83 [facility] Respiratory rate 2019-11-25 20:07:00 18 /min [facility] Body weight 2019-11-25 20:07:00 108.863 kg [facility] Oxygen saturation in 2019-11-25 20:07:00 96 /min [facility] Arterial blood by [facility] Pulse oximetry Branch Systolic blood 2019-11-25 20:10:00 166 mm[Hg] [facility] Diastolic blood 2019-11-25 20:10:00 106 mm[Hg] Unive [facility] Heart rate 2019-11-25 20:07:00 97 /min [facility] Body temperature 2019-11-25 20:07:00 36.83 [facility] Respiratory rate 2019-11-25 20:07:00 18 /min [facility] Body weight 2019-11-25 20:07:00 108.863 kg [facility] Oxygen saturation in 2019-11-25 20:07:00 96 /min University Arterial blood by [facility] Pulse oximetry Branch Procedures This patient has no known procedures. Encounters Start End Encounter Admission Attending Care Care Encounter Source Date/Time Date/Time Type Type Clinicians Facility Department ID 2021-09-15 Outpatient [place], STLMLC [facility] [id number] [facility] [address] 14:01:03 [place] [id number] [facility] 2021-06-08 2021-06-08 Outpatient [facility] [id number] [facility] 2021-06-04 2021-06-04 Outpatient [facility] [id number] [facility] 2019-11-27 2019-11-27 [facility] [id number] 00:00:00 00:00:00 [facility] [id number] [place] [id number] Professio [phone] [place] [address] [address] 2019-11-27 2019-11-27 [place] [facility] [id number] [facility] [place] 00:00:00 00:00:00 [facility] [id number] it y of [place] [id number] [place] Professio [phone] Hi dicwy nal [address] [place] [address] Office [address] 2019-11-25 2019-11-25 Urgent Pob1, Acute Care Clinic [facility] [id number]. [id number] [facility] [place] 14:55:25 15:15:25 Care Zana, [facility] [id number] ity of [place] [id number] [place] Professio [phone] Hi dical nal [address] 2019-11-25 2019-11-25 Urgent Pob1, Acute [facility] [id number] 14:55:25 15:15:25 [facility] [id number] [place] [id number] Professio [phone] nal [facility] Office [address] 2019-11-25 2019-11-25 Outpatient R ZANA, [facility] [id number] Univers 15:00:00 15:00:00 [facility] ittabitha [facility] [place] 2019-11-25 2019-11-25 Telephone Pob1, Acute [facility] [id number] Univers 00:00:00 00:00:[address] [facility] [id number] [facility] [id number] [place] Professio [phone] Hi dicwy nal [address] 2019-11-25 2019-11-25 Telephone Pob1, Acute [facility] [id number] 00:00:00 00:00:00 [place] [id number] [place] [id number] Professio [phone] [place] [address] Office [facility] One Results Test Description Test Time Test Comments Results Result Comments Source SARS-COV2/RT-PCR ([facility]) 2020-02-29 10:51:00 Test Item Value Reference Range Interpretation Comme nts SARS-COV2/RT-PCR (test code = 3851518) Negative Not Detected, N egative SARS-COV-2 PERFORMING LAB (test code = 3408132) [facility] Negative result for this test determines that [...] 564(g) of the Act.Fact Sheet for Healthcare Providers:https://www.Forter[facility]/sites/default/files/product/documents/Fact_Shee z_SM_Qwxrgsavu_Dtxd_OAEE-LiL-1.pdfFact Sheet for Healthcare Patients:https://www.[employer]/sites/default/files/product/ documents/Rehm_Wsvnf_Ibdhzudq_Bvcx_LSVK-ImH-1.pdfPerforming Laboratory:[facility], [place] [address]UVQRYEGNUYR ANTIBODIES, IGG AND [id number] 11:17:00 Test Item Value Reference Range Interpretation Comments ANTICARDIOLIPIN IGG ANTIBODY (BEAKER) < GPL (test code = 712) ANTICARDIOLIPIN IGM ANTIBODY (BEAKER) 0.6 MPL (test code = 713) Anticardiolipin IgG Result Interpretation: NEG:<20 GPL; U/mlPOS:>/=20 GPL;U/mlAnticardiolipinIgM Result Interpretation: NEG:<20 MPL; U/mlPOS:>/=20 MPL;U/[id number] 19:19:00 Test Item Value Reference Range Interpretation Comments HOMOCYSTEINE (BEAKER) (test code 19.1 umol/L 5.1-15.4 H = 642) HEMOGLOBIN [id number] 16:55:00 Test Item Value Reference Range Interpretation Comments HEMOGLOBIN A1C (BEAKER) (test code = 5.1 % 4.3-6.1 368) TSH/FREE T4 IF [id number] 16:00:00 Test Item Value Reference Range Interpretation Comments THYROID STIMULATING HORMONE 1.64 uIU/mL 0.35-4.94 (BEAKER) (test code = 772) VITAMIN B12 AND [id number] 16:00:00 Test Item Value Reference Range Interpretation Comments VITAMIN B12 (BEAKER) (test code = 241 pg/mL 213-816 774) FOLATE (BEAKER) (test code = 362) 3.7 ng/mL >=7.0 L Effective 07/08/2014: Folate Reference Range ChangeNew: >=7.0 Previous: >=5.4SEDIMENTATION [id number] 15:57:00 Test Item Value Reference Range Interpretation Comments SEDIMENTATION RATE, ERYTHROCYTE 8 mm/HR 0-20 (BEAKER) (test code = 766) LIPID [id number] 15:32:00 Test Item Value Reference Range Interpretation [...] Borderline 130-159 High 160-189 Very High >=190C-REACTIVE [id number] 15:30:00 Test Item Value Reference Range Interpretation Comments C-REACTIVE PROTEIN (BEAKER) (test 2.96 mg/dL 0.00-0.50 H code = 676) CBC W/PLT COUNT & AUTO [id number] 15:05:00 Test Item Value Reference Range Interpretation [...] K/ L 0.00-0.20 (test code = 417) [id number] 07:34:00 Test Item Value Reference Range Interpretation Comments MAGNESIUM (BEAKER) 2.0 mg/dL 1.6-2.6 Specimen slightly (test code = 627) hemolyzed BASIC METABOLIC [id number] 07:33:00 Test Item Value Reference Range Interpretation [...] S NOT APPLICABLE FOR DIALYSIS PATIEN TS. [id number] 07:27:00 Test Item Value Reference Range Interpretation Comments MAGNESIUM (BEAKER) (test code = 1.7 mg/dL 1.6-2.6 627) SCREEN, [id number] 13:54:00 Test Item Value Reference Range Interpretation Comments TEST URINE (BEAKER) (test Negative code = 583) [id number] 02:55:00 Test Item Value Reference Range Interpretation Comments MAGNESIUM (BEAKER) (test code = 1.8 mg/dL 1.6-2.6 627) PHENYTOIN LEVEL, [id number] 00:30:00 Test Item Value Reference Range Interpretation Comments PHENYTOIN (DILANTIN) (BEAKER) (test 7.3 ug/mL 10.0-20.0 L code = 605) HEPATIC FUNCTION [id number] 00:26:00 Test Item Value Reference Range Interpretation [...] = 20 U/L 6-55 347) BASIC METABOLIC [id number] 00:26:00 Test Item Value Reference Range Interpretation [...] S NOT APPLICABLE FOR DIALYSIS PATIEN TS. [id number] 00:26:00 Test Item Value Reference Range Interpretation Comments ALBUMIN (BEAKER) (test code = 1145) 3.8 g/dL 3.5-5.0 CBC W/PLT COUNT & AUTO [id number] 00:16:00 Test Item Value Reference Range Interpretation [...]
[2021-11-16] MEDS ORDERED: ASPIRIN 81 MG CHEWABLE TABLET ONE (12:51)
[2021-11-16 12:58] LABS: Urine Blood Negative (Negative); Urine Glucose Negative (Negative); Urine Protein Negative (Negative); Urine pH 7.5 (5.0-7.0)
[2021-11-16 13:11] LABS: Absolute Lymphocytes (CBC) 1.8 K/uL (0.7-4.9); Hematocrit 48.2 % (36.0-45.0); Lymphocytes % 18.7 % (15.3-44.8); MPV 8.4 fL (7.6-11.3); RBC Red Blood Cell Count 5.28 M/uL (3.86-4.86)
[2021-11-16 13:18] LABS: Barbiturates NEGATIVE (NEGATIVE); Benzodiazepines NEGATIVE (NEGATIVE); Cocaine NEGATIVE (NEGATIVE); METHAMPHETAM NEGATIVE (NEGATIVE); Methadone NEGATIVE (NEGATIVE); Opiates NEGATIVE (NEGATIVE); Phencyclidine NEGATIVE (NEGATIVE); Protime INR 1.04; THC Cannibis POSITIVE (NEGATIVE)
--- NOTE | 2021-11-16 13:47 | RAD REPORT ---
EXAM DESCRIPTION: CT - Head Brain Wo Cont - 11/16/2021 1:12 pm CLINICAL HISTORY: NUMBNESS Headache, drowsiness COMPARISON: Head Brain Wo Cont dated 01/25/2020; Facial Bones W/ Mpr dated 10/01/2019Head Brain Wo Cont dated 01/25/2020; Facial Bones W/ Mpr dated 10/01/2019; Head C Spine Mpr Wo Con dated 07/04/2021 TECHNIQUE: All CT scans are performed using dose optimization technique as appropriate and may inclu de automated exposure control or mA/KV adjustment according to patient size. FINDINGS: Area of increased density is noted lateral aspect of the right posterior fossa.Mild this m ay be artifactual, further assessment is recommended with MRI of the brain.No acute hemorrhage is see n. No hydrocephalus. The paranasal sinuses and mastoids are clear. The calvarium is intact. IMPRESSION: Area of increased density lateral right posterior fossa noted. While this could be jonathon factual, recommend MRI of the brain for further evaluation.
--- NOTE | 2021-11-16 14:40 | RAD REPORT ---
EXAM DESCRIPTION: US - CP - 11/16/2021 2:25 pm CLINICAL HISTORY: NUMBNESS Headache, drowsiness COMPARISON: Head C Spine Mpr Wo Con dated 07/04/2021 TECHNIQUE: Real-time sonographic evaluation of both carotid systems was performed. Doppler interroga tion was performed with waveform tracing bilaterally. FINDINGS: Normal high resistance waveforms are noted in both external carotid arteries. The common c arotid arteries and internal carotid arteries show normal low resistance waveforms. No significant plaque formation is seen. Peak systolic and end diastolic velocity values and the ICA/ CCA ratios are in the non-hemodynamically significant range. Antegrade flow seen in both vertebral arteries. IMPRESSION: No significant atherosclerotic changes noted. No evidence of a hemodynamically significant stenosis.
--- NOTE | 2021-11-16 14:58 | RAD REPORT ---
EXAM DESCRIPTION: RAD - Chest Single View - 11/16/2021 2:49 pm CLINICAL HISTORY: paresthesia Chest pain. COMPARISON: Chest Single View dated 03/03/2020; Chest Single View dated 02/28/2020; Chest Single View dated 01/25/2020; Chest Single View dated 08/19/2019 FINDINGS: Portable technique limits examination quality. The lungs are grossly clear. The heart is normal in size. No displaced fractures. IMPRESSION: No acute intrathoracic process suspected.
[2021-11-16] MEDS ORDERED: ONDANSETRON 4 MG/2 ML VIAL ONE (15:03)
--- NOTE | 2021-11-16 16:22 | RAD REPORT ---
EXAM DESCRIPTION: MRI - Brain W/Wo Cont - 11/16/2021 4:09 pm CLINICAL HISTORY: Paresthesia and cranial nerve 3 palsy Headache, drowsiness COMPARISON: MRA Head Wo Cont dated 11/16/2021 TECHNIQUE: Multi-sequence, multiplanar MR imaging of the brain was performed with contrast. FINDINGS: 13 mm area of T2 hyperintensity is seen in the posterior right cerebellar hemisphere. This has the appearance of gliosis from prior infarct and does not enhance. No hemorrhage or hydrocephalu s seen. No midline shift is evident.. Mild chronic microvascular ischemia suspected in the periventri cular white matter on the left.No intracranial mass. DWI is negative for acute CVA. The midline structures are normally formed. Mastoid air cells and paranasal sinuses are clear. Post-contrast images show no abnormal enhancement to suggest tumor or infection. IMPRESSION: No acute CVA or other acute intracranial abnormality seen. 13 mm area of gliosis right cerebellar hemisphere likely attributable previous infarct.
--- NOTE | 2021-11-16 16:23 | RAD REPORT ---
EXAM DESCRIPTION: MRI - MRA Head Wo Cont - 11/16/2021 4:09 pm CLINICAL HISTORY: Paresthesia and cranial nerve 3 palsy CVA COMPARISON: Head Brain Wo Cont dated 11/16/2021 FINDINGS: 3D noncontrast [id number] MR angiography of the [place] was performed. No aneurysm, flow-limiting stenosis or vascular malformation is seen. Forward flow seen in codominant vertebral arteries. The visualized dural venous sinuses appear patent. IMPRESSION: No significant flow abnormality of the [place] is identified.
--- NOTE | 2021-11-16 16:25 | RAD REPORT ---
EXAM DESCRIPTION: MRI - MRA Neck W/Wo Cont - 11/16/2021 4:09 pm CLINICAL HISTORY: Paresthesia and cranial nerve 3 palsy Headache, drowsiness COMPARISON: No comparisons FINDINGS: Contrast enhance 2D [id number] MR angiography of the neck vessels was performed. A left aortic arch is noted. Normal branching pattern of the great vessels is seen. Common carotid ar teries and subclavian arteries are widely patent bilaterally. Both internal carotid artery show no significant stenosis. Antegrade flow is seen in codominant verte bral arteries. IMPRESSION: No significant flow abnormality of the neck vessels is seen.
[2021-11-16] MEDS ORDERED: LORazepam 2 MG/ML VIAL ONE (16:31)
[2021-11-16] MEDS ORDERED: PROMETHAZINE INJ 25 MG/ML AMP ONE (16:32)
[2021-11-16 18:00] LABS: ALT/SGPT 24 U/L (12-78); Albumin 3.1 g/dL (3.4-5.0); Alkaline Phosphatase 106 U/L (45-117); BUN Blood Urea Nitrogen 8 mg/dL (7-18); Bicarbonate 24 mmol/L (21-32); Bilirubin Direct 0.1 mg/dL (0-0.2); Bilirubin Total 0.6 mg/dL (0.2-1.0); Glucose Level 82 mg/dL (74-106); Protein, Total 6.4 g/dL (6.4-8.2); Sodium Level 139 mmol/L (136-145)
[2021-11-16 18:03] LABS: AST/SGOT 16 U/L (15-37); Magnesium 1.8 mg/dL (1.8-2.4); Potassium 3.8 mmol/L (3.5-5.1)
--- NOTE | 2021-11-16 18:08 | ER ---
Nurse's Notes [facility] Name: Nelia Corley Age: 41 yrs Sex: Female : 1980 Arrival Date: 11/16/2021 Time: 11:38 Bed 24 Private MD: Diagnosis: Third [oculomotor] nerve palsy, right eye Presentation: 11/16 11:39 Chief complaint: EMS states: PINS AND NEEDLES ON RIGHT SIDE. bp 11:39 Method Of Arrival: EMS: [facility] bp 11:39 Coronavirus screen: At this time, the client does not indicate any symptoms associated bp with coronavirus-19. Ebola Screen: No symptoms or risks identified at this time. Initial Sepsis Screen: Does the patient meet any 2 criteria? No. Patient's initial sepsis screen is negative. Does the patient have a suspected source of infection? No. Patient's initial sepsis screen is negative. Risk Assessment: Do you want to hurt yourself or someone else? Patient reports no desire to harm self or others. Note LAST KNOWN NORMAL LAST PM. Onset of symptoms is unknown. Care prior to arrival: Glucose check: 95. 11:39 Acuity: JENNIFER 3 bp Triage Assessment: 11:45 General: Appears in no apparent distress. comfortable, obese, Behavior is cooperative, bp appropriate for age, anxious. Pain: Denies pain. EENT: Reports RIGHT SIDED BLURRY VISION. Neuro: Reports numbness in right arm and right leg. Cardiovascular: No deficits noted. Respiratory: No deficits noted. GI: No signs and/or symptoms were reported involving the gastrointestinal system. : No signs and/or symptoms were reported regarding the genitourinary system. Derm: No deficits noted. Musculoskeletal: No deficits noted. Historical: - Allergies: 11:45 Ceclor; bp 11:45 Sulfa (Sulfonamide Antibiotics); bp 11:45 Ultram; bp 11:45 Topamax; bp - Home Meds: 11:45 Neurontin Oral [Active]; bp - PMHx: 11:45 ADD/ADHD; Anxiety; CVA; Hyperlipidemia; Hypertension; Kidney stones; NSTEMI; right bp rotator cuff torn; Seizures; - Immunization history:: Adult Immunizations up to date. - Social history:: Smoking status: Patient denies any tobacco usage or history of. Screenin:58 Abuse screen: Denies threats or abuse. Denies injuries from another. Nutritional bp screening: No deficits noted. Tuberculosis screening: No symptoms or risk factors identified. Fall Risk None identified. Assessment: 13:14 General: Appears in no apparent distress. comfortable, Behavior is cooperative, ld1 anxious. Pain: Denies pain. Neuro: Level of Consciousness is awake, alert, obeys commands, Oriented to person, place, time, situation, Reports blurred vision headache numbness in right arm. Cardiovascular: Capillary refill < 3 seconds Patient's skin is warm and dry. Rhythm is regular. Respiratory: Airway is patent Respiratory effort is even, unlabored, Respiratory pattern is regular, symmetrical. GI: Abdomen is round non-distended. : No signs and/or symptoms were reported regarding the genitourinary system. EENT: No signs and/or symptoms were reported regarding the EENT system. Derm: No signs and/or symptoms reported regarding the dermatologic system. Musculoskeletal: Reports numbness in right arm since LAST NIGHT AT 10PM. 13:20 Reassessment: CT reports pt being in ultrasound at this time. ld1 14:32 Reassessment: Pt reporting increase in blurred vision \T\ dizziness. Notified ERP. No new ld1 orders at this time. 15:30 Reassessment: Patient appears in no apparent distress at this time. No changes from ld1 previously documented assessment. Patient and/or family updated on plan of care and expected duration. Pain level reassessed. 16:50 Reassessment: Patient appears in no apparent distress at this time. Patient is alert, ld1 oriented x 3, equal unlabored respirations, skin warm/dry/pink. 18:45 Reassessment: ERP at bedside discussing results. ld1 Vital Signs: 11:39 BP 150 / 92; Pulse 71; Resp 20; Temp 98; Pulse Ox 96% ; bp 13:17 BP 178 / 83; Pulse 57; Resp 20; Pulse Ox 96% on R/A; ld1 14:32 BP 197 / 112; Pulse 69; Resp 18; Pulse Ox 100% on R/A; ld1 16:24 BP 209 / 119; Pulse 52; Resp 18; Pulse Ox 100% on R/A; ld1 17:14 BP 131 / 121; Pulse 53; Resp 18; Pulse Ox 100% on R/A; ld1 18:45 BP 166 / 110; Pulse 62; Resp 18; Pulse Ox 100% on R/A; ld1 ED Course: 11:38 Patient arrived in ED. am2 11:43 Triage completed. bp 11:45 Arm band placed on. bp 11:58 Patient has correct armband on for positive identification. bp 12:09 Namrata Kemp, LELO is Primary Nurse. ld1 12:12 Elroy Redman NP is PHCP. pm1 12:12 Yang Alas DO is Attending Physician. pm1 13:12 CT Head Brain wo Cont In Process Unspecified. EDMS 13:13 UDS Sent. ld1 13:14 Urine Dipstick-Ancillary Sent. ld1 13:14 Urine --Ancillary (enter results) Sent. ld1 13:14 Inserted saline lock: 22 gauge in right wrist, using aseptic technique. Blood ld1 collected. Missed attempt(s): 20 gauge in right antecubital area. 13:17 No provider procedures requiring assistance completed. ld1 14:26 Carotid Artery Bilateral US In Process Unspecified. EDMS 14:51 XRAY Chest (1 view) In Process Unspecified. EDMS 16:11 MRA Head Wo Cont In Process Unspecified. EDMS 16:11 Brain W/Wo Cont In Process Unspecified. EDMS 16:11 MRA Neck W/Wo Cont In Process Unspecified. EDMS 18:07 Max Vidal MD is Referral Physician. pm1 18:46 IV discontinued, intact, bleeding controlled, No redness/swelling at site. ld1 Administered Medications: 12:52 Drug: Aspirin Chewable Tablet 324 mg Route: PO; ld1 15:02 Drug: Zofran (Ondansetron) 4 mg Route: IVP; Site: left wrist; ld1 16:33 Drug: Ativan (LORazepam) 1 mg Route: IVP; Site: left wrist; ld1 16:33 Drug: Phenergan (promethazine) 12.5 mg Route: IVP; Site: left wrist; ld1 Outcome: 18:07 Discharge ordered by . pm1 18:46 Discharged to home via wheelchair. ld1 18:46 Condition: stable 18:46 Discharge instructions given to patient, Instructed on discharge instructions, follow up and referral plans. Demonstrated understanding of instructions, follow-up care. 18:46 Patient left the ED. ld1 Signatures: Dispatcher [employer] EDElroy Lim, FACILITIES OPERATIONS TECHNICIAN FACILITIES OPERATIONS TECHNICIAN pm1 Christin Al am2 Fabian Rudd RN RN bp Namrata Kemp RN RN ld1 Corrections: (The following items were deleted from the chart) 16:25 16:23 BP 209 / 119; Pulse 60bpm; Resp 18bpm; Pulse Ox 99% RA; ld1 ld1
--- NOTE | 2021-11-16 18:08 | EDPHYS ---
Physician Documentation [facility] Name: Nelia Corley Age: 41 yrs Sex: Female : 1980 Arrival Date: 11/16/2021 Time: 11:38 Bed 24 Private MD: ED Physician Yang Alas HPI: 11/16 12:46 This 41 yrs old Female presents to ER via EMS with complaints of Numbness. pm1 16:24 The patient presents to the emergency department with paresthesias of the right upper pm1 extremity, and right lower leg from right knee down. Feels like pins and needles to patient, a vision problem, double vision. Onset: The symptoms/episode began/occurred this morning, upon waking up. Patient reports no symptoms when she went to sleep last night. Context: occurred at home. 16:24 Associated signs and symptoms: Pertinent positives: paresthesias, double vision, pain pm1 to right arm and right leg below the knee, Pertinent negatives: fever, headache, weakness. Severity of symptoms: in the emergency department the symptoms are unchanged. Patient's baseline: Neuro: alert and fully oriented, Motor: no deficits, Ambulation: walks without assistance, Speech: normal, The patient has a previous history of CVA. The patient has not experienced similar symptoms in the past. The patient has not recently seen a physician. Historical: - Allergies: 11:45 Ceclor; bp 11:45 Sulfa (Sulfonamide Antibiotics); bp 11:45 Ultram; bp 11:45 Topamax; bp - Home Meds: 11:45 Neurontin Oral [Active]; bp - PMHx: 11:45 ADD/ADHD; Anxiety; CVA; Hyperlipidemia; Hypertension; Kidney stones; NSTEMI; right bp rotator cuff torn; Seizures; - Immunization history:: Adult Immunizations up to date. - Social history:: Smoking status: Patient denies any tobacco usage or history of. ROS: 16:24 Constitutional: Negative for fever, chills, and weight loss. pm1 16:24 Cardiovascular: Negative for chest pain, palpitations, and edema, Respiratory: Negative for shortness of breath, cough, wheezing, and pleuritic chest pain, Abdomen/GI: Negative for abdominal pain, nausea, vomiting, diarrhea, and constipation, Back: Negative for injury and pain, MS/Extremity: Negative for injury and deformity, Skin: Negative for injury, rash, and discoloration. 16:24 Neuro: Negative for headache, weakness, numbness, tingling, and seizure. 16:24 Eyes: Positive for Double vision. 16:24 Neuro: Positive for Double vision, numbness and pain, described as [id number] to right arm and right lower extremity below the knee, Negative for altered mental status, headache, weakness. Exam: 16:24 Constitutional: This is a well developed, well nourished patient who is awake, alert, pm1 and in no acute distress. Head/Face: Normocephalic, atraumatic. 16:24 Back: No spinal tenderness. No costovertebral tenderness. Full range of motion. Skin: Warm, dry with normal turgor. Normal color with no rashes, no lesions, and no evidence of cellulitis. MS/ Extremity: Pulses equal, no cyanosis. Neurovascular intact. Full, normal range of motion. 16:24 Eyes: Periorbital structures: appear normal, Pupils: no acute changes, Extraocular movements: Cranial nerve 3 palsy right eye, Conjunctiva: no acute changes. 16:24 ENT: Exam is negative for acute changes, Mouth: no acute changes, Lips: normal, moist, Oral mucosa: normal, pink and intact, moist. 16:24 Cardiovascular: Exam negative for acute changes, Rate: normal, Rhythm: regular, Pulses: no pulse deficits are appreciated. 16:24 Respiratory: Exam negative for acute changes, respiratory distress, shortness of breath, Breath sounds: are clear throughout. 16:24 Abdomen/GI: Inspection: abdomen appears normal, Palpation: abdomen is soft and non-tender, in all quadrants. 16:24 Neuro: Exam negative for acute changes, Orientation: is normal, Mentation: is normal, Cranial nerves: normal except Right eye cranial nerve 3, Motor: is normal, Sensation: is normal, no obvious gross deficits. Vital Signs: 11:39 BP 150 / 92; Pulse 71; Resp 20; Temp 98; Pulse Ox 96% ; bp 13:17 BP 178 / 83; Pulse 57; Resp 20; Pulse Ox 96% on R/A; ld1 14:32 BP 197 / 112; Pulse 69; Resp 18; Pulse Ox 100% on R/A; ld1 16:24 BP 209 / 119; Pulse 52; Resp 18; Pulse Ox 100% on R/A; ld1 17:14 BP 131 / 121; Pulse 53; Resp 18; Pulse Ox 100% on R/A; ld1 18:45 BP 166 / 110; Pulse 62; Resp 18; Pulse Ox 100% on R/A; ld1 MDM: 12:25 Patient medically screened. pm1 16:44 Physician consultation: Max Vidal MD was called at 16:29, was contacted at 16:44, pm1 regarding consult, patient's condition, and will see patient in office. 16:45 Data reviewed: vital signs. Data interpreted: community mental health worker: Pulse oximetry: on room pm1 air is 100 %. Interpretation: normal. 16:45 Counseling: I had a detailed discussion with the patient and/or guardian regarding: the pm1 historical points, exam findings, and any diagnostic results supporting the discharge/admit diagnosis, lab results, radiology results, the need for outpatient follow up, to return to the emergency department if symptoms worsen or persist or if there are any questions or concerns that arise at home. 11/16 12:43 Order name: Basic Metabolic Panel; Complete Time: 18:05 pm1 11/16 12:43 Order name: CBC with Diff; Complete Time: 14:30 pm1 11/16 12:43 Order name: LFT's; Complete Time: 18:05 pm1 11/16 12:43 Order name: Magnesium; Complete Time: 18:05 pm1 11/16 12:43 Order name: PT-INR; Complete Time: 14:30 pm1 11/16 12:44 Order name: UDS; Complete Time: 14:30 pm1 11/16 12:43 Order name: XRAY Chest (1 view); Complete Time: 15:11 pm1 11/16 12:43 Order name: CT Head Brain wo Cont; Complete Time: 14:30 pm1 11/16 12:43 Order name: Carotid Artery Bilateral US; Complete Time: 14:49 pm1 11/16 12:58 Order name: Urine Dipstick-Ancillary; Complete Time: 14:30 EDMS 11/16 12:59 Order name: Urine --Ancillary (enter results); Complete Time: 14:30 bd 11/16 13:00 Order name: Urine Dipstick-Ancillary EDUT 11/16 12:43 Order name: EKG; Complete Time: 12:44 pm1 11/16 12:43 Order name: Cardiac monitoring; Complete Time: 12:44 pm1 11/16 12:43 Order name: EKG - Nurse/Tech; Complete Time: 12:44 pm1 11/16 12:43 Order name: IV Saline Lock; Complete Time: 13:14 pm1 11/16 12:43 Order name: Labs collected and sent; Complete Time: 13:14 pm1 11/16 12:43 Order name: O2 Per Protocol; Complete Time: 12:44 pm1 11/16 12:43 Order name: O2 Sat Monitoring; Complete Time: 12:44 pm1 11/16 12:44 Order name: Urine Dipstick-Ancillary (obtain specimen); Complete Time: 12:52 pm1 11/16 15:24 Order name: MRA Head Wo Cont; Complete Time: 16:26 EDMS 11/16 15:28 Order name: Brain W/Wo Cont; Complete Time: 16:26 EDMS 11/16 15:28 Order name: MRA Neck W/Wo Cont; Complete Time: 16:26 EDMS Administered Medications: 12:52 Drug: Aspirin Chewable Tablet 324 mg Route: PO; ld1 15:02 Drug: Zofran (Ondansetron) 4 mg Route: IVP; Site: left wrist; ld1 16:33 Drug: Ativan (LORazepam) 1 mg Route: IVP; Site: left wrist; ld1 16:33 Drug: Phenergan (promethazine) 12.5 mg Route: IVP; Site: left wrist; ld1 Disposition: 22:10 Co-signature as Attending Physician, Yang SAENZ was immediately available on-site ms3 in the Emergency Department for consultation in the care of the patient.. Disposition Summary: 11/16/21 18:07 Discharge Ordered Location: Home pm1 Problem: new pm1 Symptoms: are unchanged pm1 Condition: Stable pm1 Diagnosis - Third [oculomotor] nerve palsy, right eye pm1 Followup: pm1 - With: Emergency Department - When: As needed - Reason: Worsening of condition Followup: pm1 - With: Private Physician - When: 2 - 3 days - Reason: Recheck today's complaints, Continuance of care, Re-evaluation by your physician Followup: pm1 - With: Max Vidal MD - When: 2 - 3 days - Reason: Recheck today's complaints, Continuance of care, Re-evaluation by your physician Discharge Instructions: - Discharge Summary Sheet pm1 - Eye Patch, Adult pm1 - Strabismus, Adult pm1 Forms: - Medication Reconciliation Form pm1 - Thank You Letter pm1 - Antibiotic Education pm1 - Prescription Opioid Use pm1 Signatures: Dispatcher [employer] EDMS Elroy Redman, [employer] END FINDER pm1 Fabian Rudd, RN RN bp Yang Alas DO DO ms3 Namrata Kemp, LELO RN ld1 Corrections: (The following items were deleted from the chart) 15:24 14:38 MR STROKE PROTOCOL+MRI.RAD.BRZ ordered. EDMS EDMS 16:33 14:32 Brain Wo Cont+MRI.RAD.BRZ ordered. EDMS EDMS 16:58 16:24 Onset: The symptoms/episode began/occurred this morning, upon waking up. Patient pm1 reports no symptoms when she went o sleep last night, pm1 18:02 16:24 Neuro: Exam negative for acute changes, Orientation: is normal, Mentation: is pm1 normal, Motor: is normal, pm1
[2021-11-16 18:58] VITALS: O2SAT 100
[2021-11-16 19:02] VITALS: TEMP 98
[2021-11-16 19:03] VITALS: BP 166/110
--- NOTE | 2021-11-17 07:55 | EKG ---
Test Date: 2021-11-16 Test Time: 12:19:45 Corner Former: [facility] MEASUREMENT RESULTS: Intervals: Rate: 51 TN: 156 QRSD: 82 QT: 438 QTc: 403 [place]: P: 53 TN: 156 QRS: 53 T: 58 INTERPRETIVE STATEMENTS: Sinus bradycardia with sinus arrhythmia Otherwise normal ECG Compared to ECG 07/04/2021 09:40:45 Sinus rhythm no longer present Electronically Signed On 11-17-21 07:52:37 CDT by Diaz Almanzar
== END 2021-11-16 18:46 | disposition home or self-care (01) ==
LOC: ER 11:32
DX: H49.01 Third [oculomotor] nerve palsy, right eye (principal); R20.2 Paresthesia of skin; R20.0 Anesthesia of skin; M79.601 Pain in right arm; F41.9 Anxiety disorder, unspecified; I10 Essential (primary) hypertension; I25.2 Old myocardial infarction; Z86.73 Personal history of transient ischemic attack (TIA), and cerebral infarction without residual deficits; Z88.1 Allergy status to other antibiotic agents; Z88.5 Allergy status to narcotic agent; Z88.8 Allergy status to other drugs, medicaments and biological substances
CPT/HCPCS: 93005; 85025; 80048; 36415; 83735; 81025; 85610; 80076; 81003; 80307; 70450; 71045; 93880; 70553; 70544; 70549; 96375; 96374; 99284; A9577; J2550; J2405

== ENCOUNTER 2022-01-16 08:24 | Emergency (ER) | payer OTHER ==
--- OUTSIDE RECORDS SUMMARY | 2022-01-16 08:26 | XMS REPORT | Continuity of Care Document ---
:1980 Author Organization [facility] t Address [address] [place] [address] Care Team Providers Name Role Phone Hollis Attending Clinician Unavailable Zana CARDIOTHORACIC ICU RN Attending Clinician Pob1, Care Clinic Attending Clinician [...] 06 it y of on on 00:00: [place] [facility] Anxiety Anxiety Disease Active 2020-0 Univers 4-06 ity of 00:00: [address] No known No known Disease Unive rs active active ity of problems problems [facility] Allergies, Adverse Reactions, Alerts Allergy Allergy Status Severity Reaction(s) Onset Inactive Treating Comm ents Source Name Type Date Date Clinician Tramadol Propensi Active Other - See 2019-0 Seizure Univers ty to comments 01-10 ity of adverse 00:00: [place] reaction 00 Medical Branch TRAMADOL DRUG Active Other-Cmnt Univ ers INGREDI 01-10 ity of 00:00: 00 [facility] Ketorola Propensi Active Other - See 2019-0 Seizure Univers c ty to comments - ity of adverse 00:00: [place] reaction 00 Medical s [place] KETOROLA DRUG Active Other-Cmnt Univ ers C [...] Date Quantity Comments Source Sex Assigned At [facility] Smoking Status Start Date Stop Date Source Current every day smoker 2019-11-25 00:00:00 [facility] Unknown if ever smoked Universit y [facility] Medications Ordered Filled Start Stop Current Ordering Indication Dosage Frequency Signature Comments Components Source Medication Medication Date Date Medication? Clinician (SIG) Name Name lisinopril 2020-0 Yes 10mg Take 10 mg U nivers 10 mg 4-06 by mouth ity of tablet 20:10: daily. [address] lisinopril 2019-0 Yes 10mg Take 10 mg U nivers 10 mg 4-06 by mouth ity of tablet 20:10: daily. [address] hydrOXYzine 2019- 2020- No [id number] 50mg Take 1 Univers 50 mg 11-24 05-07 tablet by ity of tablet 00:00: 04:59 mouth 3 [place] 00 :00 (three) Medical times Branch daily as needed for Anxiety for up to 30 days. albuterol 2019- 2020- No [id number] 2{puff} Inhale 2 Univers (VENTOLIN - 05-07 Puffs ity of HFA) 90 00:00: 04:59 every 6 [place] mcg/actuati 00 :00 (six) Medical on inhaler hours as Branc h needed for Shortness of Breath or Chest tightness for up to 30 days. hydrOXYzine 2019- 2020- No [id number] 50mg Take 1 Univers 50 mg - 05-07 tablet by ity of tablet 00:00: 04:59 mouth 3 [place] 00 :00 (three) Medical times Branch daily as needed for Anxiety for up to 30 days. albuterol 2019- No [id number] 2{puff} Inhale 2 Univers (VENTOLIN 11-24 05-07 Puffs ity of HFA) 90 00:00: 04:59 every 6 [place] mcg/actuati 00 :00 (six) Medical on inhaler hours as Branc h needed for Shortness of Breath or Chest tightness for up to 30 days. benzonatate 2019- No [id number] 100mg Take 1 Univers (TESSALON - 04-21 capsule by ity of PERLES) 100 00:00: 04:59 mouth 3 [place] mg capsule 00 :00 (three) Medica l times Branch daily for 14 days. benzonatate 2019-2019- No [id number] 100mg Take 1 Univers (TESSALON - 04-21 capsule by ity of PERLMissy's Candy) 100 00:00: 04:59 mouth 3 [place] mg capsule 00 :00 (three) Medica l times Branch daily for 14 days. amoxicillin 2019- No [id number] 1{tbl} Take 1 Univers -clavulanat 4- 04-17 tablet by it y of e 00:00: 04:59 mouth 2 [place] (AUGMENTIN) 00 :00 (two) Medical 875-125 mg times Branch per tablet daily for 10 days. amoxicillin 2019- No [id number] 1{tbl} Take 1 Univers -clavulanat 4-06 04-17 tablet by it y of e 00:00: 04:59 mouth 2 [place] (AUGMENTIN) 00 :00 (two) Medical 875-125 mg times Branch per tablet daily for 10 days. traMADOL 50 2018- Yes [id number] 50mg Take 1 Univers mg tablet 5-23 tablet by ity o f 00:00: mouth [place] 00 every 6 Medical (six) Branch hours as needed for Pain (scale 1-3). ondansetron 2018- Yes [id number] 4mg Take 1 Univers (ZOFRAN 5-23 tablet by ity of ODT) 4 mg 00:00: mouth [place] disintegrat 00 every 8 Medic al ing tablet (eight) Branch hours as needed for Nausea and Vomiting (N/V). traMADOL 50 2018- Yes [id number] 50mg Take 1 Univers mg tablet 5-23 tablet by ity o f 00:00: mouth [place] 00 every 6 Medical (six) Branch hours as needed for Pain (scale 1-3). ondansetron 2018- Yes [id number] 4mg Take 1 Univers (ZOFRAN 5-23 tablet by ity of ODT) 4 mg 00:00: mouth [place] disintegrat 00 every 8 Medic al ing tablet (eight) Branch hours as needed for Nausea and Vomiting (N/V). traMADOL 50 Yes [id number] 50mg Take 1 Univers mg tablet 5-23 tablet by ity o f 00:00: mouth [place] 00 every 6 Medical (six) Branch hours as needed for Pain (scale 1-3). ondansetron Yes [id number] 4mg Take 1 Univers (ZOFRAN 5-23 tablet by ity of ODT) 4 mg 00:00: mouth [place] disintegrat 00 every 8 Medic al ing tablet (eight) Branch hours as needed for Nausea and Vomiting (N/V). ondansetron Yes [id number] 4mg Take 1 Univers (ZOFRAN) 4 5-17 tablet by ity of mg tablet 00:00: mouth [place] 00 every 8 Medical (eight) Branch hours as needed for Nausea and Vomiting (N/V). tamsulosin 2018- Yes [id number] .4mg Take 1 U nivers 0.4 mg 24 5-17 capsule by ity of hr capsule 00:00: mouth at [place] as 00 bedtime. Medical Branch pantoprazol 2018- Yes [id number] 40mg Take 1 Univers e 5-17 tablet by ity of (PROTONIX) 00:00: mouth [place] 40 mg EC 00 daily. Medical tablet Branch ketorolac 2018- Yes [id number] 10mg Take 1 Un yesika 10 mg 5-17 tablet by ity of tablet 00:00: mouth [place] 00 every 6 Medical (six) Branch hours as needed for Alternate with [place] for pain scale 4-6. ondansetron 2018- Yes [id number] 4mg Take 1 Univers (ZOFRAN) 4 5-17 tablet by ity of mg tablet 00:00: mouth [place] 00 every 8 Medical (eight) Branch hours as needed for Nausea and Vomiting (N/V). tamsulosin 2019-0 Yes [id number] .4mg Take 1 U nivers 0.4 mg 24 5-17 capsule by ity of hr capsule 00:00: mouth at [place] as 00 bedtime. Medical Branch pantoprazol 2018-0 Yes [id number] 40mg Take 1 Univers e 5-17 tablet by ity of (PROTONIX) 00:00: mouth [place] 40 mg EC 00 daily. Medical tablet Branch ketorolac 2018-0 Yes [id number] 10mg Take 1 Un yesika 10 mg 5-17 tablet by ity of tablet 00:00: mouth [place] 00 every 6 Medical (six) Branch hours as needed for Alternate with [place] for pain scale 4-6. ondansetron 2018- Yes [id number] 4mg Take 1 Univers (ZOFRAN) 4 5-17 tablet by ity of mg tablet 00:00: mouth [place] 00 every 8 Medical (eight) Branch hours as needed for Nausea and Vomiting (N/V). tamsulosin 2018- Yes [id number] .4mg Take 1 U nivers 0.4 mg 24 5-17 capsule by ity of hr capsule 00:00: mouth at [place] as 00 bedtime. Medical Branch pantoprazol Yes [id number] 40mg Take 1 Univers e 5-17 tablet by ity of (PROTONIX) 00:00: mouth [place] 40 mg EC 00 daily. Medical tablet Branch ketorolac 2018-0 Yes [id number] 10mg Take 1 Un yesika 10 mg 5-17 tablet by ity of tablet 00:00: mouth [place] 00 every 6 Medical (six) Branch hours as needed for Alternate with [place] for pain scale 4-6. ciprofloxac 2019-0 Yes [id number] 500mg Take 1 Univers in HCl 500 5-17 tablet by ity of mg tablet 00:00: mouth 2 [place] 00 (two) Medical times Branch daily. metroNIDAZO 2019-0 Yes [id number] 500mg Take 1 Univers LE 500 mg 5-17 tablet by ity o f tablet 00:00: mouth 2 [place] 00 (two) Medical times Branch daily. ciprofloxac 2019-0 2020- No [id number] 500mg Take 1 Univers in HCl 500 5-17 04-06 tablet by ity of mg tablet 00:00: 00:00 [place] 2 [place] :[place] (two) Medical times Branch daily. metroNIDAZO 2019-0 2020- No [id number] 500mg Take 1 Univers LE 500 mg [...] ity o f tablet 00:00: mouth 3 [place] 00 (three) Medical times Branch daily. cyclobenzap 2017-0 Yes 5mg Take 1 Univ ers rine 5 mg 6-29 tablet by ity o f tablet 00:00: mouth 3 [place] 00 (three) Medical times Branch daily. Vital Signs Vital Name Observation Time Observation Value Comments Source Systolic blood 2019-11-25 20:10:00 166 [facility] [place] [facility] Diastolic blood 2019-11-25 20:10:00 106 mm[Hg] Unive [facility] Heart rate 2019-11-25 20:07:00 97 /min [facility] Body temperature 2019-11-25 20:07:00 36.83 Sara [facility] Respiratory rate 2019-11-25 20:07:00 18 /min [facility] Body weight 2019-11-25 20:07:00 108.863 kg [facility] Oxygen saturation in 2019-11-25 20:07:00 96 /min [facility] Arterial blood by [facility] Pulse oximetry Branch Systolic blood 2019-11-25 20:10:00 166 mm[Hg] [facility] [place] [facility] Diastolic blood 2019-11-25 20:10:00 106 mm[Hg] Unive [facility] Heart rate 2019-11-25 20:07:00 97 /min [facility] Body temperature 2019-11-25 20:07:00 36.83 [facility] Respiratory rate 2019-11-25 20:07:00 18 /min [facility] Body weight 2019-11-25 20:07:00 108.863 kg [facility] Oxygen saturation in 2019-11-25 20:07:00 96 /min University Arterial blood by [facility] Pulse oximetry Branch Procedures This patient has no known procedures. Encounters Start End Encounter Admission Attending Care Care Encounter Source Date/Time Date/Time Type Type Clinicians Facility Department ID 2021-09-15 Outpatient Hollis, STLMLC STLMLC [id number] Common 14:01:03 Cammy [id number] [facility] 2021-06-08 2021-06-08 Outpatient STLMLC STLMLC [id number] Common 00:00:00 00:00:00 [facility] 2021-06-04 2021-06-04 Outpatient STLMLC STLMLC [id number] Common 00:00:00 00:00:00 [facility] 2019-11-27 2019-11-27 [facility] [id number] 00:00:00 00:00:00 [facility] [id number] [place] [id number] Professio [phone] nal [facility] Office Building One 2019-11-27 2019-11-27 [facility] [id number] Univers 00:00:00 00:00:00 [facility] [id number] it y of [place] [id number] [place] as Professio [phone] Wi dicsc nal [address] [place] [address] Office Building One 2019-11-25 2019-11-25 Urgent Pob1, Acute Care Clinic [facility] [id number]. [id number] Univers 14:55:25 15:15:25 Care Zana, [facility] [id number] ity of [place] [id number] [place] Professio [phone] Wi dicsc [address] Office Building One 2019-11-25 2019-11-25 Urgent Pob1, Acute [place] [id number] 14:55:25 15:15:25 [facility] [id number] [place] [phone] One 2019-11-25 2019-11-25 Outpatient R ZANA, [facility] [id number] Univers 15:00:00 15:00:00 ENMA lewis [facility] 2019-11-25 2019-11-25 Telephone Pob1, Acute [place] [id number] [facility] 00:00:00 00:00:00 [facility] [id number] ity of [place] [id number] [place] Professio [phone] Wi dical [address] 2019-11-25 2019-11-25 Telephone Pob1, Acute [place] [id number] 00:00:00 00:00:00 [place] [id number] [place] [id number] Professio [phone] One Results Test Description Test Time Test Comments Results Result Comments Source SARS-COV2/RT-PCR ([facility]) 2020-02-29 10:51:00 Test Item Value Reference Range Interpretation Comme nts SARS-COV2/RT-PCR (test code = 8058124) Negative Not Detected, N egative SARS-COV-2 PERFORMING LAB (test code = 2800140) [facility] Negative result for this test determines that [...] 564(g) of the Act.Fact Sheet for Healthcare Providers:https://www.[employer]/sites/default/files/product/documents/Fact_Shee f_EK_Iypkeknzy_Cfit_DDCO-KjN-7.pdfFact Sheet for Healthcare Patients:https://www.[employer]/sites/default/files/product/ documents/Rmhb_Dowaw_Ccodllhz_Wteq_WROJ-DnP-8.pdfPerforming Laboratory:[facility], [place] [address]RDVAODTLRFO ANTIBODIES, IGG AND [id number] 11:17:00 Test Item Value Reference Range Interpretation Comments ANTICARDIOLIPIN IGG ANTIBODY (BEAKER) < GPL (test code = 712) ANTICARDIOLIPIN IGM ANTIBODY (BEAKER) 0.6 MPL (test code = 713) Anticardiolipin IgG Result Interpretation: NEG:<20 GPL; U/mlPOS:>/=20 GPL;U/mlAnticardiolipinIgM Result Interpretation: NEG:<20 MPL; U/mlPOS:>/=20 MPL;U/[id number] 19:19:00 Test Item Value Reference Range Interpretation Comments HOMOCYSTEINE (BEAKER) (test code 19.1 umol/L 5.1-15.4 H = 642) HEMOGLOBIN [id number] 16:55:00 Test Item Value Reference Range Interpretation Comments HEMOGLOBIN A1C (BEAKER) (test code = 5.1 % 4.3-6.1 368) TSH/FREE T4 IF [id number] 16:00:00 Test Item Value Reference Range Interpretation Comments THYROID STIMULATING HORMONE 1.64 uIU/mL 0.35-4.94 (BEAKER) (test code = 772) VITAMIN B12 AND [id number] 16:00:00 Test Item Value Reference Range Interpretation Comments VITAMIN B12 (BEAKER) (test code = 241 pg/mL 213-816 774) FOLATE (BEAKER) (test code = 362) 3.7 ng/mL >=7.0 L Effective 07/08/2014: Folate Reference Range ChangeNew: >=7.0 Previous: >=5.4SEDIMENTATION [id number] 15:57:00 Test Item Value Reference Range Interpretation Comments SEDIMENTATION RATE, ERYTHROCYTE 8 mm/HR 0-20 (BEAKER) (test code = 766) LIPID [id number] 15:32:00 Test Item Value Reference Range Interpretation [...] Borderline 130-159 High 160-189 Very High >=190C-REACTIVE [id number] 15:30:00 Test Item Value Reference Range Interpretation Comments C-REACTIVE PROTEIN (BEAKER) (test 2.96 mg/dL 0.00-0.50 H code = 676) CBC W/PLT COUNT & AUTO [id number] 15:05:00 Test Item Value Reference Range Interpretation [...] K/ L 0.00-0.20 (test code = 417) [id number] 07:34:00 Test Item Value Reference Range Interpretation Comments MAGNESIUM (BEAKER) 2.0 mg/dL 1.6-2.6 Specimen slightly (test code = 627) hemolyzed BASIC METABOLIC [id number] 07:33:00 Test Item Value Reference Range Interpretation [...] S NOT APPLICABLE FOR DIALYSIS PATIEN TS. [id number] 07:27:00 Test Item Value Reference Range Interpretation Comments MAGNESIUM (BEAKER) (test code = 1.7 mg/dL 1.6-2.6 627) SCREEN, [id number] 13:54:00 Test Item Value Reference Range Interpretation Comments TEST URINE (BEAKER) (test Negative code = 583) [id number] 02:55:00 Test Item Value Reference Range Interpretation Comments MAGNESIUM (BEAKER) (test code = 1.8 mg/dL 1.6-2.6 627) PHENYTOIN LEVEL, [id number] 00:30:00 Test Item Value Reference Range Interpretation Comments PHENYTOIN (DILANTIN) (BEAKER) (test 7.3 ug/mL 10.0-20.0 L code = 605) HEPATIC FUNCTION [id number] 00:26:00 Test Item Value Reference Range Interpretation [...] = 20 U/L 6-55 347) BASIC METABOLIC [id number] 00:26:00 Test Item Value Reference Range Interpretation [...] S NOT APPLICABLE FOR DIALYSIS PATIEN TS. [id number] 00:26:00 Test Item Value Reference Range Interpretation Comments ALBUMIN (BEAKER) (test code = 1145) 3.8 g/dL 3.5-5.0 CBC W/PLT COUNT & AUTO [id number] 00:16:00 Test Item Value Reference Range Interpretation [...]
--- NOTE | 2022-01-16 09:02 | RAD REPORT ---
EXAM DESCRIPTION: CT - Head Brain Wo Cont - 01/16/2022 8:55 am CLINICAL HISTORY: Hypertensive emergency Headache, drowsiness, hypertension COMPARISON: Head Brain Wo Cont dated 11/16/2021; Head Brain Wo Cont dated 01/25/2020 TECHNIQUE: All CT scans are performed using dose optimization technique as appropriate and may inclu de automated exposure control or mA/KV adjustment according to patient size. FINDINGS: No intracranial hemorrhage, hydrocephalus or extra-axial fluid collection.No areas of brai n edema or evidence of midline shift. The paranasal sinuses and mastoids are clear. The calvarium is intact. IMPRESSION: No acute intracranial abnormality.
[2022-01-16] MEDS ORDERED: NA CHLORIDE 0.9% 1,000 ML ONE (09:05)
[2022-01-16] MEDS ORDERED: LORazepam 2 MG/ML VIAL ONE (09:05)
[2022-01-16 09:29] LABS: Absolute Lymphocytes (CBC) 1.3 K/uL (0.7-4.9); Hematocrit 48.1 % (36.0-45.0); Lymphocytes % 10.8 % (15.3-44.8); RBC Red Blood Cell Count 5.25 M/uL (3.86-4.86)
[2022-01-16 09:32] LABS: Protime INR 0.94
[2022-01-16 09:46] LABS: ALT/SGPT 27 U/L (12-78); AST/SGOT 19 U/L (15-37); Albumin 3.2 g/dL (3.4-5.0); Alkaline Phosphatase 108 U/L (45-117); BUN Blood Urea Nitrogen 10 mg/dL (7-18); Bicarbonate 25 mmol/L (21-32); Bilirubin Direct 0.1 mg/dL (0-0.2); Bilirubin Total 0.4 mg/dL (0.2-1.0); Glomerular Filtration Rate 81 ml/min (=/>90); Glucose Level 107 mg/dL (74-106); Protein, Total 6.6 g/dL (6.4-8.2); Sodium Level 137 mmol/L (136-145)
[2022-01-16 09:47] LABS: Phenytoin (Dilantin) Level < 0.5 ug/mL (10.0-20.0)
[2022-01-16] MEDS ORDERED: MORPHINE 2 MG/ML SYR ONE ×2 (09:54→11:27)
[2022-01-16] MEDS ORDERED: ONDANSETRON 4 MG/2 ML VIAL ONE (09:54)
[2022-01-16] MEDS ORDERED: PHENYTOIN ER 100 MG CAP PO ONE (11:26)
[2022-01-16] MEDS ORDERED: HYDRALAZINE HCL 20 MG/ML VIAL ONE (11:27)
[2022-01-16 11:35] LABS: Urine Blood Negative (Negative); Urine Glucose Negative (Negative); Urine Protein Negative (Negative); Urine pH 6.5 (5.0-7.0)
[2022-01-16 11:55] LABS: Barbiturates NEGATIVE (NEGATIVE); Benzodiazepines NEGATIVE (NEGATIVE); Cocaine NEGATIVE (NEGATIVE); METHAMPHETAM NEGATIVE (NEGATIVE); Methadone NEGATIVE (NEGATIVE); Opiates NEGATIVE (NEGATIVE); Phencyclidine NEGATIVE (NEGATIVE); THC Cannibis POSITIVE (NEGATIVE)
--- NOTE | 2022-01-16 12:15 | ER ---
Nurse's Notes [facility] Name: Nelia Corley Age: 41 yrs Sex: Female : 1980 Arrival Date: 01/16/2022 Time: 08:24 Bed 15 Private MD: Diagnosis: Other seizures;Patient's other noncompliance with medication regimen;Hypertensive heart disease without heart failure;Cervicalgia Presentation: 01/16 08:25 Chief complaint: EMS states: WITNESSED SZ AT HOME, NON-COMPLIANT WITH MEDS. Coronavirus bp screen: At this time, the client does not indicate any symptoms associated with coronavirus-19. Ebola Screen: No symptoms or risks identified at this time. Initial Sepsis Screen: Does the patient meet any 2 criteria? HR > 90 bpm. No. Patient's initial sepsis screen is negative. Does the patient have a suspected source of infection? No. Patient's initial sepsis screen is negative. Risk Assessment: Do you want to hurt yourself or someone else? Patient reports no desire to harm self or others. Onset of symptoms was January 16, 2022 at 08:00. 08:25 Method Of Arrival: EMS: [facility] bp 08:25 Acuity: JENNIFER 3 bp Triage Assessment: 08:26 General: Appears in no apparent distress. uncomfortable, obese, Behavior is bp cooperative, appropriate for age, anxious. Pain: Complains of pain in head. EENT: No deficits noted. Neuro: Level of Consciousness is awake, alert, obeys commands, Oriented to Appropriate for age. Cardiovascular: Rhythm is sinus rhythm. Respiratory: No deficits noted. GI: No signs and/or symptoms were reported involving the gastrointestinal system. : No signs and/or symptoms were reported regarding the genitourinary system. Derm: No deficits noted. Musculoskeletal: No deficits noted. Historical: - Allergies: 08:26 Ceclor; bp 08:26 Sulfa (Sulfonamide Antibiotics); bp 08:26 Topamax; bp 08:26 Ultram; bp - Home Meds: 08:26 lisinopril Oral [Active]; Phenytoin Oral [Active]; Metoprolol Tartrate Oral [Active]; bp - PMHx: 08:26 ADD/ADHD; Anxiety; CVA; Hyperlipidemia; Hypertension; Kidney stones; NSTEMI; right bp rotator cuff torn; Seizures; - Immunization history:: Adult Immunizations up to date. - Social history:: Smoking status: Patient reports the use of cigarette tobacco products, unknown amount. Screenin:29 Abuse screen: Denies threats or abuse. Denies injuries from another. Nutritional bp screening: No deficits noted. Tuberculosis screening: No symptoms or risk factors identified. Fall Risk None identified. Assessment: 08:29 General: SEE TRIAGE NOTE. bp 09:43 Reassessment: No changes from previously documented assessment. Patient and/or family bp updated on plan of care and expected duration. Pain level reassessed. 10:46 Reassessment: Patient appears in no apparent distress at this time. No changes from bp previously documented assessment. PT AT BASELINE. 12:23 Reassessment: D/C ON HOLD FOR C-SPINE CT. bp 14:08 Reassessment: PT D/C HOME WITH FAMILY, USING PROFANITY AT STAFF, INSISTING NON-NARCOTIC bp PAIN MEDICINE INEFFECTIVE. DX WITH SZ AND NON-COMPLIANCE. Vital Signs: 08:25 BP 176 / 140; Pulse 100; Resp 17; Temp 98.2; Pulse Ox 98% ; bp 09:42 BP 182 / 113; Pulse 74; Resp 16; Pulse Ox 98% ; bp 10:46 BP 175 / 91; Pulse 65; Resp 16; Pulse Ox 95% ; bp 11:39 BP 132 / 81; Pulse 78; Resp 16; Pulse Ox 98% ; bp 12:23 BP 124 / 70; Pulse 74; Resp 16; Pulse Ox 97% ; bp 14:08 BP 135 / 75; Pulse 72; Resp 16; Pulse Ox 97% ; bp Rhoda Coma Score: 08:26 Eye Response: spontaneous(4). Verbal Response: oriented(5). Motor Response: obeys bp commands(6). Total: 15. ED Course: 08:24 Patient arrived in ED. bp 08:25 Hank Collins MD is Attending Physician. kdr 08:26 Triage completed. bp 08:26 Arm band placed on. bp 08:27 Cj Strange PA is PHCP. cp 08:29 Patient has correct armband on for positive identification. Bed in low position. Call bp light in reach. Side rails up X2. 08:32 Fabian Rudd, LELO is Primary Nurse. bp 08:57 CT Head Brain wo Cont In Process Unspecified. EDMS 09:30 Inserted saline lock: 20 gauge in right forearm, using aseptic technique. Blood bp collected. 12:41 CT C Spine In Process Unspecified. EDMS 14:08 Patient has correct armband on for positive identification. Bed in low position. Call bp light in reach. Side rails up X2. 14:08 No provider procedures requiring assistance completed. IV discontinued, intact, bp bleeding controlled, No redness/swelling at site. Pressure dressing applied. Administered Medications: 09:15 Drug: Ativan (LORazepam) 1 mg Route: IVP; Site: right forearm; bp 09:39 Follow up: Response: No adverse reaction; Pain is decreased bp 09:15 Drug: NS 0.9% 1000 ml Route: IV; Rate: 1 bolus; Site: right forearm; bp 09:50 Drug: morphine 2 mg Route: IVP; Rate: calculated rate; Site: right forearm; bp 09:50 Drug: Zofran (Ondansetron) 4 mg Route: IVP; Site: right forearm; bp 11:38 Follow up: Response: No adverse reaction bp 11:20 Drug: morphine 2 mg Route: IVP; Rate: calculated rate; Site: right forearm; bp 11:38 Follow up: Response: No adverse reaction bp 11:20 Drug: Dilantin (phenytoin sodium extended) 200 mg Route: PO; bp 11:38 Follow up: Response: No adverse reaction bp 11:20 Drug: hydrALAZINE 5 mg Route: IVP; Site: right forearm; bp 11:38 Follow up: Response: No adverse reaction bp 13:10 Drug: fentaNYL (PF) 25 mcg Route: IVP; Site: right forearm; bp 14:10 Follow up: Response: Pain is decreased bp 13:10 Drug: Flexeril (cyclobenzaprine) 10 mg Route: PO; bp 14:10 Follow up: Response: No adverse reaction bp 14:00 Drug: Lidoderm Patch 5 % (700 mg/patch) 1 patches Route: Topical; Site: affected area; bp Medication: 08:29 VIS not applicable for this client. bp Outcome: 12:14 Discharge ordered by MD. cp 13:45 Discharge ordered by MD. cp 14:08 Discharged to home ambulatory, with family. bp 14:08 Condition: stable 14:08 Discharge instructions given to patient, Instructed on discharge instructions, follow up and referral plans. medication usage, Demonstrated understanding of instructions, follow-up care, medications, Prescriptions given X 4. 14:11 Patient left the ED. bp Signatures: Dispatcher [employer] EDMS Hank Collins MD MD kdr Page, Corey, PA PA cp Peltier, Brian, RN RN bp
--- NOTE | 2022-01-16 12:15 | EDPHYS ---
Physician Documentation [facility] Name: Nelia Corley Age: 41 yrs Sex: Female : 1980 Arrival Date: 01/16/2022 Time: 08:24 Bed 15 Private MD: ED Physician Hank Collins HPI: 01/16 08:35 This 41 yrs old Female presents to ER via EMS with complaints of Seizure. cp 08:35 The patient presents after having a single isolated seizure, the episode(s) was cp witnessed, by family. Character of seizure(s): Motor activity: generalized, Incontinence: none. Seizure onset: just prior to arrival. Context: occurred at home, Contributing factors: has been off prescribed medications for seizures and hypertension. Seizure Hx: Seizure medications: Dilantin. Associated injury: Neck: pain. 08:35 EMS care: none. Current symptoms: confusion, headache, that is severe. cp Historical: - Allergies: 08:26 Ceclor; bp 08:26 Sulfa (Sulfonamide Antibiotics); bp 08:26 Topamax; bp 08:26 Ultram; bp - Home Meds: 08:26 lisinopril Oral [Active]; Phenytoin Oral [Active]; Metoprolol Tartrate Oral [Active]; bp - PMHx: 08:26 ADD/ADHD; Anxiety; CVA; Hyperlipidemia; Hypertension; Kidney stones; NSTEMI; right bp rotator cuff torn; Seizures; - Immunization history:: Adult Immunizations up to date. - Social history:: Smoking status: Patient reports the use of cigarette tobacco products, unknown amount. ROS: 08:40 Constitutional: Negative for body aches, chills, fever, poor PO intake. cp 08:40 Cardiovascular: Negative for chest pain, edema, palpitations. 08:40 Respiratory: Negative for cough, shortness of breath, wheezing. 08:40 Abdomen/GI: Negative for abdominal pain, vomiting, diarrhea, constipation, anorexia, cp black/tarry stool, rectal bleeding. 08:40 Eyes: Negative for injury, pain, redness, and discharge. cp 08:40 ENT: Negative for drainage from ear(s), ear pain, sore throat, difficulty swallowing, difficulty handling secretions. 08:40 Neck: Positive for pain with movement, pain at rest. 08:40 Back: Negative for pain at rest, pain with movement. 08:40 Neuro: Positive for headache, Negative for altered mental status. 08:40 All other systems are negative. Exam: 08:45 Constitutional: The patient appears in no acute distress, alert, awake, cp non-diaphoretic, non-toxic, well developed, well nourished, uncomfortable. 08:45 Head/Face: Normocephalic, atraumatic. cp 08:45 Eyes: Periorbital structures: appear normal, Pupils: equal, round, and reactive to light and accomodation, Extraocular movements: intact throughout, Conjunctiva: normal, no exudate, no injection, Sclera: no appreciated abnormality, Lids and lashes: appear normal, bilaterally. 08:45 ENT: External ear(s): are unremarkable, Ear canal(s): are normal, clear, TM's: dullness, bilaterally, Nose: is normal, Mouth: Lips: moist, Oral mucosa: moist, Posterior pharynx: Airway: no evidence of obstruction, patent. 08:45 Neck: ROM/movement: Meningeal signs: are not present, nuchal rigidity, is not appreciated, tenderness noted right lateral neck. 08:45 Chest/axilla: Inspection: normal. 08:45 Cardiovascular: Rate: tachycardic, Rhythm: regular. 08:45 Respiratory: the patient does not display signs of respiratory distress, Respirations: normal, no use of accessory muscles, no retractions, labored breathing, is not present, Breath sounds: are clear throughout, no decreased breath sounds, no stridor, no wheezing. 08:45 Abdomen/GI: Inspection: abdomen appears normal, Palpation: abdomen is soft and non-tender, in all quadrants. 08:45 Back: CVA tenderness, is absent, vertebral tenderness, is not appreciated. 08:45 Neuro: Orientation: to person, place \T\ time. Mentation: able to follow commands, slow to respond, Motor: moves all fours, strength is normal, Sensation: is normal. 09:04 ECG was reviewed by the Attending Physician. cp Vital Signs: 08:25 BP 176 / 140; Pulse 100; Resp 17; Temp 98.2; Pulse Ox 98% ; bp 09:42 BP 182 / 113; Pulse 74; Resp 16; Pulse Ox 98% ; bp 10:46 BP 175 / 91; Pulse 65; Resp 16; Pulse Ox 95% ; bp 11:39 BP 132 / 81; Pulse 78; Resp 16; Pulse Ox 98% ; bp 12:23 BP 124 / 70; Pulse 74; Resp 16; Pulse Ox 97% ; bp 14:08 BP 135 / 75; Pulse 72; Resp 16; Pulse Ox 97% ; bp Rhoda Coma Score: 08:26 Eye Response: spontaneous(4). Verbal Response: oriented(5). Motor Response: obeys bp commands(6). Total: 15. MDM: 08:41 Patient medically screened. cp 13:45 Data reviewed: vital signs, nurses notes, lab test result(s), EKG, radiologic studies, cp CT scan. 13:45 Counseling: I had a detailed discussion with the patient and/or guardian regarding: the cp historical points, exam findings, and any diagnostic results supporting the discharge/admit diagnosis, the presence of at least one elevated blood pressure reading (>120/80) during this emergency department visit, lab results, radiology results, the need for outpatient follow up, a family practitioner, a neurologist, to return to the emergency department if symptoms worsen or persist or if there are any questions or concerns that arise at home. Response to treatment: the patient's symptoms have markedly improved after treatment, VSS. No seizure activity observed while monitoring patient in ED. Pain and blood pressure improved. Will discharge to home for continued monitoring. 01/16 08:31 Order name: Acetaminophen; Complete Time: 09:49 cp 01/16 08:31 Order name: Basic Metabolic Panel; Complete Time: 09:49 cp 01/16 09:49 Interpretation: Normal except: CL 109; GLUC 107; GFR 81. cp 01/16 08:31 Order name: CBC with Diff; Complete Time: :45 cp 01/16 09:45 Interpretation: Normal except: WBC 11.6; RBC 5.25; HGB 15.9; HCT 48.1; NABEEL% 80.3; LYM% cp 10.8; NEUT A 9.3. 01/16 08:31 Order name: ETOH Level; Complete Time: 09:45 cp 01/16 08:31 Order name: Hepatic Function; Complete Time: 09:49 cp 01/16 11:08 Interpretation: Normal except: ALB 3.2; A/G 0.9. cp 01/16 08:31 Order name: PT-INR; Complete Time: 09:45 cp 01/16 08:31 Order name: Ptt, Activated; Complete Time: 09:45 cp 01/16 08:31 Order name: Salicylate; Complete Time: 09:45 cp 01/16 08:31 Order name: Urine Drug Screen; Complete Time: 12:07 cp 01/16 08:31 Order name: CT Head Brain wo Cont; Complete Time: 09:06 cp 01/16 09:06 Interpretation: Report reviewed. cp 01/16 08:31 Order name: Dilantin; Complete Time: 09:49 cp 01/16 11:35 Order name: Urine Dipstick-Ancillary; Complete Time: 12:07 EDMS 01/16 11:37 Order name: Urine --Ancillary (enter results); Complete Time: 12:07 eb 01/16 12:21 Order name: CT C Spine; Complete Time: 13:00 cp 01/16 13:00 Interpretation: Report reviewed. cp 01/16 08:31 Order name: EKG; Complete Time: 08:32 cp 01/16 08:31 Order name: EKG - Nurse/Tech; Complete Time: 09:16 cp 01/16 08:31 Order name: IV Saline Lock; Complete Time: 09:16 cp 01/16 08:31 Order name: Labs collected and sent; Complete Time: 09:16 cp 01/16 08:31 Order name: Urine Dipstick-Ancillary (obtain specimen); Complete Time: 11:39 cp 01/16 08:31 Order name: Urine Test (obtain specimen); Complete Time: 11:39 cp EC:04 Rate is 68 beats/min. Rhythm is regular. CA interval is normal. QRS interval is normal. cp QT interval is normal. T waves are Inverted in lead aVR. Interpreted by me. Reviewed by me. Administered Medications: 09:15 Drug: Ativan (LORazepam) 1 mg Route: IVP; Site: right forearm; bp 09:39 Follow up: Response: No adverse reaction; Pain is decreased bp 09:15 Drug: NS 0.9% 1000 ml Route: IV; Rate: 1 bolus; Site: right forearm; bp 09:50 Drug: morphine 2 mg Route: IVP; Rate: calculated rate; Site: right forearm; bp 09:50 Drug: Zofran (Ondansetron) 4 mg Route: IVP; Site: right forearm; bp 11:38 Follow up: Response: No adverse reaction bp 11:20 Drug: morphine 2 mg Route: IVP; Rate: calculated rate; Site: right forearm; bp 11:38 Follow up: Response: No adverse reaction bp 11:20 Drug: Dilantin (phenytoin sodium extended) 200 mg Route: PO; bp 11:38 Follow up: Response: No adverse reaction bp 11:20 Drug: hydrALAZINE 5 mg Route: IVP; Site: right forearm; bp 11:38 Follow up: Response: No adverse reaction bp 13:10 Drug: fentaNYL (PF) 25 mcg Route: IVP; Site: right forearm; bp 14:10 Follow up: Response: Pain is decreased bp 13:10 Drug: Flexeril (cyclobenzaprine) 10 mg Route: PO; bp 14:10 Follow up: Response: No adverse reaction bp 14:00 Drug: Lidoderm Patch 5 % (700 mg/patch) 1 patches Route: Topical; Site: affected area; bp Disposition: 17:15 Co-signature as Attending Physician, Hank Collins MD I agree with the assessment and kdr plan of care. Disposition Summary: 01/16/22 13:45 Discharge Ordered Location: Home(01/16/22 13:45) cp Problem: an acute exacerbation(01/16/22 13:45) cp Symptoms: have improved(01/16/22 13:45) cp Condition: Stable(01/16/22 13:45) cp Diagnosis - Other seizures(01/16/22 13:45) cp - Patient's other noncompliance with medication regimen(01/16/22 13:45) cp - Hypertensive heart disease without heart failure(01/16/22 13:45) cp - Cervicalgia cp Followup: cp - With: Private Physician - When: 1 - 2 days - Reason: Recheck today's complaints Discharge Instructions: - Discharge Summary Sheet cp - Muscle Strain cp - Seizure, Adult cp - Form - Blood Pressure Record Sheet cp - How to Take Your Blood Pressure cp - Neck Exercises cp Forms: - Medication Reconciliation Form cp - Thank You Letter cp - Antibiotic Education cp - Prescription Opioid Use cp Prescriptions: - Lisinopril 10 mg Oral Tablet - take 1 tablet by ORAL route once daily; 20 tablet; Refills: 0, Product cp Selection Permitted - Lidoderm 5 % Topical adhesive patch,medicated - apply 1 patch by TOPICAL route once daily; 20 patch; Refills: 0, Product cp Selection Permitted - Cyclobenzaprine 10 mg Oral Tablet - take 1 tablet by ORAL route every 8 hours As needed; 20 tablet; Refills: 0, cp Product Selection Permitted - Diclofenac Sodium 75 mg Oral tablet,delayed release (DR/EC) - take 1 tablet by ORAL route 2 times per day; 20 tablet; Refills: 0, Product cp Selection Permitted Signatures: Dispatcher [employer] EDMS Hank Collins MD MD kdr Cj Strange PA PA cp Fabian Rudd, RN RN bp Corrections: (The following items were deleted from the chart) 08:32 08:31 Suicide Screening ([place]) ordered. cp bp 11:01/15 08:40 Constitutional: Negative for body aches, chills, fever, poor PO intake, cp cp 01/16 11:01/15 08:40 Cardiovascular: Negative for chest pain, edema, palpitations, cp cp 01/16 11:01/15 08:40 Respiratory: Negative for cough, shortness of breath, wheezing, cp cp 01/16 13:02 12:14 Home cp cp 13:02 12:14 new cp cp 13:02 12:14 have improved cp cp 13:02 12:14 Stable cp cp 13:02 12:14 Other seizures cp cp 13:02 12:14 Hypertensive heart disease without heart failure cp cp 13:02 12:15 Patient's other noncompliance with medication regimen cp cp
--- NOTE | 2022-01-16 12:46 | RAD REPORT ---
EXAM DESCRIPTION: CT - C Spine Wo Con - 01/16/2022 12:39 pm CLINICAL HISTORY: Neck pain, acute, no red flags Neck pain, radiculopathy COMPARISON: Head C Spine Mpr Wo Con dated 07/04/2021; Head C Spine Mpr Wo Con dated 02/17/2020; Head C Spine Mpr Wo Con dated 10/01/2019; Head C Spine Mpr Wo Con dated 08/19/2019 FINDINGS: Moderate lower cervical degenerative spondylosis with posterior osteophytes and disc bulgi ng. No evidence of acute cervical spine fracture or subluxation. Prevertebral soft tissues are normal in thickness. Mild mucosal thickening of both maxillary antra. IMPRESSION: Negative for acute cervical spine abnormality. Moderate lower cervical spondylosis. All CT scans are performed using dose optimization technique as appropriate and may include automated exposure control or mA/KV adjustment according to patient size.
[2022-01-16] MEDS ORDERED: CYCLOBENZAPRINE 10 MG TAB ONE (13:15)
[2022-01-16] MEDS ORDERED: FENTANYL CITR 100 MCG/2 ML ONE (13:16)
[2022-01-16] MEDS ORDERED: LIDOCAINE 4% PATCH ONE (14:07)
[2022-01-16 14:35] VITALS: TEMP 98.2
[2022-01-16 14:38] VITALS: O2SAT 97
[2022-01-16 14:39] VITALS: BP 135/75
--- NOTE | 2022-01-18 12:22 | EKG ---
Test Date: 2022-01-16 Test Time: 08:58:56 911 Emergency Dispatcher: TM MEASUREMENT RESULTS: Intervals: Rate: 68 NH: 154 QRSD: 82 QT: 404 QTc: 429 [place]: P: 41 NH: 154 QRS: 10 T: 52 INTERPRETIVE STATEMENTS: Normal sinus rhythm with sinus arrhythmia Normal ECG Compared to ECG 11/16/2021 12:19:45 Sinus bradycardia no longer present Electronically Signed On 01-18-22 12:17:06 CDT by Diaz Almanzar
== END 2022-01-16 14:11 | disposition home or self-care (01) ==
LOC: ER 08:24
DX: G40.89 Other seizures (principal); Z91.14 Patient's other noncompliance with medication regimen; I11.9 Hypertensive heart disease without heart failure; M54.2 Cervicalgia; I10 Essential (primary) hypertension; E78.5 Hyperlipidemia, unspecified; F41.9 Anxiety disorder, unspecified; Z72.0 Tobacco use; Z88.1 Allergy status to other antibiotic agents; Z88.2 Allergy status to sulfonamides; Z88.8 Allergy status to other drugs, medicaments and biological substances
CPT/HCPCS: 93005; 85025; 80048; 36415; 80320; 80329 ×2; 81025; 85610; 80076; 85730; 80185; 81003; 80307; 70450; 72125; 96375; 96374; 99284; J0360; J3010; J2001; J2270 ×2; J7030; J2405

== ENCOUNTER 2022-03-15 08:21 | Emergency (ER) | payer OTHER ==
--- OUTSIDE RECORDS SUMMARY | 2022-03-15 08:24 | XMS REPORT | Continuity of Care Document ---
:1980 Author Organization [facility] t Address [address] [place] [address] Care Team Providers Name Role Phone [place] Attending Clinician Unavailable Zana CUSTOMER ENGAGEMENT ANALYST Attending Clinician Pob1, Care Clinic Attending Clinician [...] 06 it y of on on 00:00: [place] [facility] Anxiety Anxiety Disease Active 2020-0 Univers 4-06 ity of 00:00: [address] No known No known Disease Unive rs active active ity of problems problems [facility] Allergies, Adverse Reactions, Alerts Allergy Allergy Status Severity Reaction(s) Onset Inactive Treating Comm ents Source Name Type Date Date Clinician Tramadol Propensi Active Other - See 2019- Seizure Univers ty to comments 01-10 ity of adverse 00:00: [place] reaction 00 Medical Branch TRAMADOL DRUG Active Other-Cmnt Univ ers INGREDI 01-10 ity of 00:00: 00 [facility] Ketorola Propensi Active Other - See 2019-0 Seizure Univers c ty to comments 01-04 ity of adverse 00:00: [place] reaction 00 Medical s Conception KETOROLA DRUG Active Other-Cmnt Univ ers C [...] Date Quantity Comments Source Sex Assigned At [facility] Smoking Status Start Date Stop Date Source Current every day smoker 2019-11-25 00:00:00 [facility] Unknown if ever smoked Universit y [facility] Medications Ordered Filled Start Stop Current Ordering Indication Dosage Frequency Signature Comments Components Source Medication Medication Date Date Medication? Clinician (SIG) Name Name lisinopril 2020-0 Yes 10mg Take 10 mg U nivers 10 mg 4-06 by mouth ity of tablet 20:10: daily. [address] lisinopril 2019-0 Yes 10mg Take 10 mg U nivers 10 mg 4-06 by mouth ity of tablet 20:10: daily. [address] hydrOXYzine 2019- 2020- No [id number] 50mg Take 1 Univers 50 mg 11-24 05-07 tablet by ity of tablet 00:00: 04:59 mouth 3 [place] 00 :00 (three) Medical times Branch daily as needed for Anxiety for up to 30 days. albuterol 2019- 2020- No [id number] 2{puff} Inhale 2 Univers (VENTOLIN - 05-07 Puffs ity of HFA) 90 00:00: 04:59 every 6 [place] mcg/actuati 00 :00 (six) Medical on inhaler hours as Branc h needed for Shortness of Breath or Chest tightness for up to 30 days. hydrOXYzine 2019- 2020- No [id number] 50mg Take 1 Univers 50 mg - 05-07 tablet by ity of tablet 00:00: 04:59 mouth 3 [place] 00 :00 (three) Medical times Branch daily as needed for Anxiety for up to 30 days. albuterol 2019- No [id number] 2{puff} Inhale 2 Univers (VENTOLIN 11-24 05-07 Puffs ity of HFA) 90 00:00: 04:59 every 6 [place] mcg/actuati 00 :00 (six) Medical on inhaler hours as Branc h needed for Shortness of Breath or Chest tightness for up to 30 days. benzonatate 2019- No [id number] 100mg Take 1 Univers (TESSALON - 04-21 capsule by ity of PERLES) 100 00:00: 04:59 mouth 3 [place] mg capsule 00 :00 (three) Medica l times Branch daily for 14 days. benzonatate 2019-2019- No [id number] 100mg Take 1 Univers (TESSALON - 04-21 capsule by ity of [employer]) 100 00:00: 04:59 mouth 3 [place] mg capsule 00 :00 (three) Medica l times Branch daily for 14 days. amoxicillin 2019- No [id number] 1{tbl} Take 1 Univers -clavulanat 4- 04-17 tablet by it y of e 00:00: 04:59 mouth 2 [place] (AUGMENTIN) 00 :00 (two) Medical 875-125 mg times Branch per tablet daily for 10 days. amoxicillin 2019- No [id number] 1{tbl} Take 1 Univers -clavulanat 4-06 04-17 tablet by it y of e 00:00: 04:59 mouth 2 [place] (AUGMENTIN) 00 :00 (two) Medical 875-125 mg times Branch per tablet daily for 10 days. traMADOL 50 2018- Yes [id number] 50mg Take 1 Univers mg tablet 5-23 tablet by ity o f 00:00: mouth [place] 00 every 6 Medical (six) Branch hours as needed for Pain (scale 1-3). ondansetron 2018- Yes [id number] 4mg Take 1 Univers (ZOFRAN 5-23 tablet by ity of ODT) 4 mg 00:00: mouth [place] disintegrat 00 every 8 Medic al ing tablet (eight) Branch hours as needed for Nausea and Vomiting (N/V). traMADOL 50 2018- Yes [id number] 50mg Take 1 Univers mg tablet 5-23 tablet by ity o f 00:00: mouth [place] 00 every 6 Medical (six) Branch hours as needed for Pain (scale 1-3). ondansetron 2018- Yes [id number] 4mg Take 1 Univers (ZOFRAN 5-23 tablet by ity of ODT) 4 mg 00:00: mouth [place] disintegrat 00 every 8 Medic al ing tablet (eight) Branch hours as needed for Nausea and Vomiting (N/V). traMADOL 50 Yes [id number] 50mg Take 1 Univers mg tablet 5-23 tablet by ity o f 00:00: mouth [place] 00 every 6 Medical (six) Branch hours as needed for Pain (scale 1-3). ondansetron Yes [id number] 4mg Take 1 Univers (ZOFRAN 5-23 tablet by ity of ODT) 4 mg 00:00: mouth [place] disintegrat 00 every 8 Medic al ing tablet (eight) Branch hours as needed for Nausea and Vomiting (N/V). ondansetron Yes [id number] 4mg Take 1 Univers (ZOFRAN) 4 5-17 tablet by ity of mg tablet 00:00: mouth [place] 00 every 8 Medical (eight) Branch hours as needed for Nausea and Vomiting (N/V). tamsulosin 2018- Yes [id number] .4mg Take 1 U nivers 0.4 mg 24 5-17 capsule by ity of hr capsule 00:00: mouth at [place] as 00 bedtime. Medical Branch pantoprazol 2018- Yes [id number] 40mg Take 1 Univers e 5-17 tablet by ity of (PROTONIX) 00:00: mouth [place] 40 mg EC 00 daily. Medical tablet Branch ketorolac 2018- Yes [id number] 10mg Take 1 Un yesika 10 mg 5-17 tablet by ity of tablet 00:00: mouth [place] 00 every 6 Medical (six) Branch hours as needed for Alternate with [place] for pain scale 4-6. ondansetron 2018- Yes [id number] 4mg Take 1 Univers (ZOFRAN) 4 5-17 tablet by ity of mg tablet 00:00: mouth [place] 00 every 8 Medical (eight) Branch hours as needed for Nausea and Vomiting (N/V). tamsulosin 2019-0 Yes [id number] .4mg Take 1 U nivers 0.4 mg 24 5-17 capsule by ity of hr capsule 00:00: mouth at [place] 00 bedtime. Medical Branch pantoprazol 2018-0 Yes [id number] 40mg Take 1 Univers e 5-17 tablet by ity of (PROTONIX) 00:00: mouth [place] 40 mg EC 00 daily. Medical tablet Branch ketorolac 2018-0 Yes [id number] 10mg Take 1 Un yesika 10 mg 5-17 tablet by ity of tablet 00:00: mouth [place] 00 every 6 Medical (six) Branch hours as needed for Alternate with [place] for pain scale 4-6. ondansetron 2018- Yes [id number] 4mg Take 1 Univers (ZOFRAN) 4 5-17 tablet by ity of mg tablet 00:00: mouth [place] 00 every 8 Medical (eight) Branch hours as needed for Nausea and Vomiting (N/V). tamsulosin 2018- Yes [id number] .4mg Take 1 U nivers 0.4 mg 24 5-17 capsule by ity of hr capsule 00:00: mouth at [place] 00 bedtime. Medical Branch pantoprazol Yes [id number] 40mg Take 1 Univers e 5-17 tablet by ity of (PROTONIX) 00:00: mouth [place] 40 mg EC 00 daily. Medical tablet Branch ketorolac 2018-0 Yes [id number] 10mg Take 1 Un yesika 10 mg 5-17 tablet by ity of tablet 00:00: mouth [place] 00 every 6 Medical (six) Branch hours as needed for Alternate with [place] for pain scale 4-6. ciprofloxac 2019-0 Yes [id number] 500mg Take 1 Univers in HCl 500 5-17 tablet by ity of mg tablet 00:00: mouth 2 [place] 00 (two) Medical times Branch daily. metroNIDAZO 2019-0 Yes [id number] 500mg Take 1 Univers LE 500 mg 5-17 tablet by ity o f tablet 00:00: mouth 2 [place] 00 (two) Medical times Branch daily. ciprofloxac 2019-0 2020- No [id number] 500mg Take 1 Univers in HCl 500 5-17 04-06 tablet by ity of mg tablet 00:00: 00:00 mouth 2 [place] :[place] (two) Medical times Branch daily. metroNIDAZO 2019-0 2020- No [id number] 500mg Take 1 Univers LE 500 mg [...] ity o f tablet 00:00: mouth 3 [place] 00 (three) Medical times Branch daily. cyclobenzap 2017-0 Yes 5mg Take 1 Univ ers rine 5 mg 6-29 tablet by ity o f tablet 00:00: mouth 3 [place] 00 (three) Medical times Branch daily. Vital Signs Vital Name Observation Time Observation Value Comments Source Systolic blood 2019-11-25 20:10:00 166 mm[Hg] [facility] [place] [facility] 2019-11-25 20:10:00 106 mm[Hg] Unive [facility] Heart rate 2019-11-25 20:07:00 97 /min [facility] Body temperature 2019-11-25 20:07:00 36.83 Sara [facility] Respiratory rate 2019-11-25 20:07:00 18 /min [facility] Body weight 2019-11-25 20:07:00 108.863 kg [facility] Oxygen saturation in 2019-11-25 20:07:00 96 /min [facility] Arterial blood by [facility] Pulse oximetry Branch Systolic blood 2019-11-25 20:10:00 166 mm[Hg] [facility] Di[facility] blood 2019-11-25 20:10:00 106 mm[Hg] Unive [facility] Heart rate 2019-11-25 20:07:00 97 /min [facility] Body temperature 2019-11-25 20:07:00 36.83 Sara [facility] Respiratory rate 2019-11-25 20:07:00 18 /min [facility] Body weight 2019-11-25 20:07:00 108.863 kg [facility] Oxygen saturation in 2019-11-25 20:07:00 96 /min University Arterial blood by [facility] Pulse oximetry Branch Procedures This patient has no known procedures. Encounters Start End Encounter Admission Attending Care Care Encounter Source Date/Time Date/Time Type Type Clinicians Facility Department ID 2021-09-15 Outpatient [place], STLMLC STLMLC [id number] Common 14:01:03 Cammy [address] [facility] 2021-06-08 2021-06-08 Outpatient STLMLC STLMLC [id number] Common 00:00:00 00:00:00 [facility] 2021-06-04 2021-06-04 Outpatient STLMLC STLMLC [id number] Common 00:00:00 00:00:00 [facility] 2019-11-27 2019-11-27 [facility] [id number] 00:00:00 00:00:00 [facility] [id number] [place] [id number] Professio [phone] nal [facility] Office Building One 2019-11-27 2019-11-27 [facility] [id number] Univers 00:00:00 00:00:00 [facility] [id number] it y of [place] [id number] [place] Professio [phone] Al dicde nal [address] [place] [address] Office Building One 2019-11-25 2019-11-25 Urgent Pob1, Acute Care Clinic [facility] [id number]. [id number] Univers 14:55:25 15:15:25 Care Zana, [facility] [id number] ity of [place] [id number] [place] Professio [phone] Al dicde [address] Office Building One 2019-11-25 2019-11-25 Urgent Pob1, Acute [facility] [id number] 14:55:25 15:15:25 [facility] [id number] [place] [id number] Professio [phone] [address] One 2019-11-25 2019-11-25 Outpatient R ZANA, [facility] [id number] Univers 15:00:00 15:00:00 ENMA lewis [facility] 2019-11-25 2019-11-25 Telephone Pob1, Acute [facility] [id number] [facility] 00:00:00 00:00:00 [facility] [id number] ity of [place] [id number] [place] Professio [phone] Al dical [address] 2019-11-25 2019-11-25 Telephone Pob1, Acute [facility] [id number] 00:00:00 00:00:00 [place] [id number] [place] [id number] Professio [phone] [address] One Results Test Description Test Time Test Comments Results Result Comments Source SARS-COV2/RT-PCR ([facility]) 2020-02-29 10:51:00 Test Item Value Reference Range Interpretation Comme nts SARS-COV2/RT-PCR (test code = 2819675) Negative Not Detected, N egative SARS-COV-2 PERFORMING LAB (test code = 2623178) [facility] Negative result for this test determines that [...] 564(g) of the Act.Fact Sheet for Healthcare Providers:https://www.[employer]/sites/default/files/product/documents/Fact_Shee m_WY_Bsyphtqjn_Clna_OWTE-MzY-0.pdfFact Sheet for Healthcare Patients:https://www.[employer]/sites/default/files/product/ documents/[place]_Qlzpr_Jevdzvfy_Ivhx_CDPL-ScJ-0.pdfPerforming Laboratory:[facility], [place] [address]YGQWQOXQUNM ANTIBODIES, IGG AND [id number] 11:17:00 Test Item Value Reference Range Interpretation Comments ANTICARDIOLIPIN IGG ANTIBODY (BEAKER) < GPL (test code = 712) ANTICARDIOLIPIN IGM ANTIBODY (BEAKER) 0.6 MPL (test code = 713) Anticardiolipin IgG Result Interpretation: NEG:<20 GPL; U/mlPOS:>/=20 GPL;U/mlAnticardiolipinIgM Result Interpretation: NEG:<20 MPL; U/mlPOS:>/=20 MPL;[id number] 19:19:00 Test Item Value Reference Range Interpretation Comments HOMOCYSTEINE (BEAKER) (test code 19.1 umol/L 5.1-15.4 H = 642) HEMOGLOBIN [id number] 16:55:00 Test Item Value Reference Range Interpretation Comments HEMOGLOBIN A1C (BEAKER) (test code = 5.1 % 4.3-6.1 368) TSH/FREE T4 IF [id number] 16:00:00 Test Item Value Reference Range Interpretation Comments THYROID STIMULATING HORMONE 1.64 uIU/mL 0.35-4.94 (BEAKER) (test code = 772) VITAMIN B12 AND [id number] 16:00:00 Test Item Value Reference Range Interpretation Comments VITAMIN B12 (BEAKER) (test code = 241 pg/mL 213-816 774) FOLATE (BEAKER) (test code = 362) 3.7 ng/mL >=7.0 L Effective 07/08/2014: Folate Reference Range ChangeNew: >=7.0 Previous: >=5.4SEDIMENTATION [id number] 15:57:00 Test Item Value Reference Range Interpretation Comments SEDIMENTATION RATE, ERYTHROCYTE 8 mm/HR 0-20 (BEAKER) (test code = 766) LIPID [id number] 15:32:00 Test Item Value Reference Range Interpretation [...] Borderline 130-159 High 160-189 Very High >=190C-REACTIVE [id number] 15:30:00 Test Item Value Reference Range Interpretation Comments C-REACTIVE PROTEIN (BEAKER) (test 2.96 mg/dL 0.00-0.50 H code = 676) CBC W/PLT COUNT & AUTO [id number] 15:05:00 Test Item Value Reference Range Interpretation [...] K/ L 0.00-0.20 (test code = 417) [id number] 07:34:00 Test Item Value Reference Range Interpretation Comments MAGNESIUM (BEAKER) 2.0 mg/dL 1.6-2.6 Specimen slightly (test code = 627) hemolyzed BASIC METABOLIC [id number] 07:33:00 Test Item Value Reference Range Interpretation [...] S NOT APPLICABLE FOR DIALYSIS PATIEN TS. [id number] 07:27:00 Test Item Value Reference Range Interpretation Comments MAGNESIUM (BEAKER) (test code = 1.7 mg/dL 1.6-2.6 627) SCREEN, [id number] 13:54:00 Test Item Value Reference Range Interpretation Comments TEST URINE (BEAKER) (test Negative code = 583) [id number] 02:55:00 Test Item Value Reference Range Interpretation Comments MAGNESIUM (BEAKER) (test code = 1.8 mg/dL 1.6-2.6 627) PHENYTOIN LEVEL, [id number] 00:30:00 Test Item Value Reference Range Interpretation Comments PHENYTOIN (DILANTIN) (BEAKER) (test 7.3 ug/mL 10.0-20.0 L code = 605) HEPATIC FUNCTION [id number] 00:26:00 Test Item Value Reference Range Interpretation [...] = 20 U/L 6-55 347) BASIC METABOLIC [id number] 00:26:00 Test Item Value Reference Range Interpretation [...] S NOT APPLICABLE FOR DIALYSIS PATIEN TS. [id number] 00:26:00 Test Item Value Reference Range Interpretation Comments ALBUMIN (BEAKER) (test code = 1145) 3.8 g/dL 3.5-5.0 CBC W/PLT COUNT & AUTO [id number] 00:16:00 Test Item Value Reference Range Interpretation [...]
[2022-03-15] MEDS ORDERED: MORPHINE 4 MG/ML SYR ONE (09:04)
[2022-03-15] MEDS ORDERED: ONDANSETRON 4 MG/2 ML VIAL ONE (09:05)
[2022-03-15 09:07] LABS: Absolute Lymphocytes (CBC) 1.7 K/uL (0.7-4.9); Hematocrit 47.7 % (36.0-45.0); Lymphocytes % 18.1 % (15.3-44.8); MPV 7.8 fL (7.6-11.3); RBC Red Blood Cell Count 5.36 M/uL (3.86-4.86)
[2022-03-15 09:24] LABS: ALT/SGPT 35 U/L (12-78); AST/SGOT 23 U/L (15-37); Albumin 3.4 g/dL (3.4-5.0); Alkaline Phosphatase 127 U/L (45-117); BUN Blood Urea Nitrogen 10 mg/dL (7-18); Bicarbonate 25 mmol/L (21-32); Bilirubin Total 0.3 mg/dL (0.2-1.0); Glomerular Filtration Rate 91 ml/min (=/>90); Glucose Level 105 mg/dL (74-106); Potassium 3.8 mmol/L (3.5-5.1); Protein, Total 7.1 g/dL (6.4-8.2); Sodium Level 139 mmol/L (136-145)
[2022-03-15 09:25] LABS: Bilirubin Direct < 0.1 mg/dL (0-0.2)
--- NOTE | 2022-03-15 09:32 | RAD REPORT ---
EXAM DESCRIPTION: CT - CTHCSPWOC - 03/15/2022 9:06 am CLINICAL HISTORY: Trauma, head and neck injury. Seizure, Fall, Pain COMPARISON: C Spine Wo Con dated 01/16/2022; Head C Spine Mpr Wo Con dated 07/04/2021; Head C Spine M pr Wo Con dated 02/17/2020; Head C Spine Mpr Wo Con dated 10/01/2019 TECHNIQUE: Axial 5 mm thick images of the head were obtained. Axial 2 mm thick images of the cervical spine were obtained with sagittal and coronal reconstruction images generated and reviewed. All CT scans are performed using dose optimization technique as appropriate and may include automated exposure control or mA/KV adjustment according to patient size. FINDINGS: CT HEAD WITHOUT CONTRAST: No acute hemorrhage, hydrocephalus or extra-axial collection is identified.No areas of brain edema or midline shift. The paranasal sinuses and mastoids are clear.The calvarium is intact. CT CERVICAL SPINE WITHOUT CONTRAST: No fracture or subluxation.Mild to moderate lower cervical degenerative changes.No prevertebral soft tissues swelling is identified. IMPRESSION: No acute intracranial or cervical spine findings.
[2022-03-15] MEDS ORDERED: FOSPHENYTOIN PE 500 MG/10 ML VIAL ONE (09:47)
[2022-03-15] MEDS ORDERED: NA CHLORIDE 0.9% 100 ML ONE (09:50)
--- NOTE | 2022-03-15 10:16 | RAD REPORT ---
EXAM DESCRIPTION: RAD - Shoulder Left 2 View - 03/15/2022 9:16 am CLINICAL HISTORY: PAIN COMPARISON: Shoulder Left 2 View dated 04/13/2015 FINDINGS: Moderate AC joint and glenohumeral joint arthritic changes are present. Bony spur is prese nt projecting from the lateral aspect of humeral head/ greater tuberosity. No fracture seen.
--- NOTE | 2022-03-15 10:27 | EDPHYS ---
Physician Documentation [facility] Name: Nelia Corley Age: 41 yrs Sex: Female : 1980 Arrival Date: 03/15/2022 Time: 08:25 Bed 4 Private MD: ED Physician Cj Mckeon HPI: 03/15 09:01 This 41 yrs old Female presents to ER via EMS with complaints of seizure. jr8 09:01 The patient's problem is reported as an apparent seizure, with the patient having a jr8 single isolated episode, Episodes lasted an unknown amount of time. Motor activity is described as unknown. Brief loss of consciousness. Patient was not incontinent of bowel or bladder. Patient was not apneic. Loss of pulse was not noted. Onset: The symptoms/episode began/occurred acutely, today. Duration: This was a single incident. Context: the episode(s) was witnessed, by family, daughter, occurred at home. The symptoms are alleviated by nothing. Associated signs and symptoms: Pertinent positives: headache. Severity of symptoms: At their worst the symptoms were moderate in the emergency department the symptoms have improved. The patient has experienced similar episodes in the past, multiple times. The patient has not recently seen a physician. Patient back to normal at this time. Stated that she has been out of her meds for two days. Tried to get PCP to refill but has not done so as of yet. Doesn't know if she fell or not but is having left shoulder pain, head, pain, and neck pain . Historical: - Allergies: 08:27 Ceclor; 6 08:27 Sulfa (Sulfonamide Antibiotics); 6 08:27 Topamax; jh6 08:27 Ultram; jh6 - PMHx: 08:27 Seizures; right rotator cuff torn; NSTEMI; Kidney stones; Hypertension; Hyperlipidemia; 6 CVA; Anxiety; ADD/ADHD; - Immunization history:: Adult Immunizations up to date, Client reports having NOT received the Covid vaccine. - Social history:: Smoking status: Patient reports the use of cigarette tobacco products. ROS: 09:01 Eyes: Negative for injury, pain, redness, and discharge, ENT: Negative for injury, jr8 pain, and discharge, Cardiovascular: Negative for chest pain, palpitations, and edema, Respiratory: Negative for shortness of breath, cough, wheezing, and pleuritic chest pain, Abdomen/GI: Negative for abdominal pain, nausea, vomiting, diarrhea, and constipation, Back: Negative for injury and pain, Skin: Negative for injury, rash, and discoloration. 09: Neck: Positive for pain with movement, pain at rest, tenderness, Negative for bony tenderness. 09: MS/extremity: Positive for pain, tenderness, of the left shoulder. 09: Neuro: Positive for headache, seizure activity. Exam: : Head/Face: Normocephalic, atraumatic. Eyes: Pupils equal round and reactive to light, jr8 extra-ocular motions intact. Lids and lashes normal. Conjunctiva and sclera are non-icteric and not injected. Cornea within normal limits. Periorbital areas with no swelling, redness, or edema. ENT: Nares patent. No nasal discharge, no septal abnormalities noted. Tympanic membranes are normal and external auditory canals are clear. Oropharynx with no redness, swelling, or masses, exudates, or evidence of obstruction, uvula midline. Mucous membranes moist. Chest/axilla: Normal chest wall appearance and motion. Nontender with no deformity. No lesions are appreciated. Cardiovascular: Regular rate and rhythm with a normal S1 and S2. No gallops, murmurs, or rubs. Normal PMI, no JVD. No pulse deficits. Respiratory: Lungs have equal breath sounds bilaterally, clear to auscultation and percussion. No rales, rhonchi or wheezes noted. No increased work of breathing, no retractions or nasal flaring. Abdomen/GI: Soft, non-tender, with normal bowel sounds. No distension or tympany. No guarding or rebound. No evidence of tenderness throughout. Back: No spinal tenderness. No costovertebral tenderness. Full range of motion. Skin: Warm, dry with normal turgor. Normal color with no rashes, no lesions, and no evidence of cellulitis. Neuro: Awake and alert, GCS 15, oriented to person, place, time, and situation. Cranial nerves II-XII grossly intact. Motor strength 5/5 in all extremities. Sensory grossly intact. Cerebellar exam normal. : Neck: External neck: tenderness, that is mild, of the left mid cervical area and left trapezius, C-spine: appears grossly normal, no vertebral tenderness, no crepitus, Trachea: is midline with no obvious abnormalities, ROM/movement: pain, that is mild, with any movement, Lymph nodes: no appreciated lymphadenopathy. 09:01 Musculoskeletal/extremity: Extremities: grossly normal except: noted in the left shoulder: pain, tenderness, to anterior and lateral left shoulder , ROM: intact in all extremities, Circulation is intact in all extremities. Sensation intact. 09:32 ECG was reviewed by the Attending Physician. [facility] 09:34 Radiologist reports: No acute findings [facility] Vital Signs: 08:25 BP 202 / 172; Pulse 85; Resp 18; Temp 98.0(O); Pulse Ox 98% ; Weight 104.33 kg; Height jh6 5 ft. 1 in. (154.94 cm); Pain 10/10; 09:38 BP 173 / 117; Pulse 64; Resp 18; Pulse Ox 97% ; Pain 8/10; jh6 10:42 BP 184 / 116; Pulse 63; Resp 18; Pulse Ox 96% ; mb7 08:25 Body Mass Index 43.46 (104.33 kg, 154.94 cm) [facility] MDM: 08:28 Patient medically screened. [facility] 10:25 Data reviewed: vital signs, nurses notes, lab test result(s), radiologic studies, CT jr8 scan, plain films. Data interpreted: Pulse oximetry: on room air is 97 %. Interpretation: normal. Counseling: I had a detailed discussion with the patient and/or guardian regarding: the historical points, exam findings, and any diagnostic results supporting the discharge/admit diagnosis, lab results, radiology results, the need for outpatient follow up, a neurologist, to return to the emergency department if symptoms worsen or persist or if there are any questions or concerns that arise at home. Response to treatment: the patient's symptoms have markedly improved after treatment. 10:27 ED course: Patient hemodynamically stable and afebrile. Back to baseline jr8 neurologically. Pain has improved overall. No acute findings on labs or imaging. This was all discussed with patient. I will represcribe her Dilantin so she can get it filled. If she were to worsen a point time does come back.. 03/15 08:44 Order name: Basic Metabolic Panel; Complete Time: 09:31 jr8 03/15 08:44 Order name: CBC with Diff; Complete Time: 09:08 jr8 03/15 08:44 Order name: ETOH Level; Complete Time: :03/15 08:44 Order name: Hepatic Function; Complete Time: :03/15 08:44 Order name: CT Head C Spine; Complete Time: 09:34 03/15 08:44 Order name: EKG; Complete Time: 08:44 03/15 08:44 Order name: EKG - Nurse/Tech; Complete Time: 09:03/15 08:44 Order name: IV Saline Lock; Complete Time: 09:03/15 08:44 Order name: Shoulder Left (2 View) XRAY; Complete Time: 10:19 03/15 08:44 Order name: Labs collected and sent; Complete Time: :03/15 08:44 Order name: Suicide Screening ([place]); Complete Time: 09:00 8 EC:32 Rate is 63 beats/min. Rhythm is regular, Normal Sinus Rhythm. QRS [place] is Normal. [place] jr8 interval is normal at 154 msec. QRS interval is prolonged at 82 msec. QT interval is prolonged at 410 msec. No Q waves. T waves are Normal. No ST changes noted. Clinical impression: Normal ECG. Interpreted by me. Reviewed by me. Administered Medications: 09:00 Drug: Zofran (Ondansetron) 4 mg Route: IVP; Site: right antecubital; [facility] 09:30 Follow up: Response: No adverse reaction j9 09:00 Drug: morphine 4 mg Route: IVP; Infused Over: 4 mins; Site: right antecubital; [facility] 09:30 Follow up: Response: No adverse reaction; Pain is decreased j9 09:49 Drug: CEREbyx (fosphenytoin) 1 grams Route: IVPB; Site: right antecubital; j9 10:34 Follow up: IV Status: Completed infusion; IV Intake: 100ml j9 10:26 Drug: Ketorolac 15 mg Route: IVP; Site: right antecubital; [facility] 10:47 Follow up: Response: No adverse reaction [facility] Disposition Summary: 03/15/22 10:26 Discharge Ordered Location: Home jr8 Problem: new jr8 Symptoms: have improved jr8 Condition: Stable jr8 Diagnosis - Other seizures jr8 Followup: jr8 - With: Private Physician - When: 2 - 3 days - Reason: Recheck today's complaints, Continuance of care, Re-evaluation by your physician Discharge Instructions: - Discharge Summary Sheet jr8 - Seizure, Adult jr8 Forms: - Medication Reconciliation Form jr8 - Thank You Letter jr8 - Antibiotic Education jr8 - Prescription Opioid Use jr8 Prescriptions: - Dilantin Kapseal 100 mg Oral Capsule - take 1 capsule by ORAL route every 8 hours; 90 capsule; Refills: 0, Product jr8 Selection Permitted - methocarbamol 500 mg Oral Tablet - take 2 tablets by ORAL route 4 times per day As needed; 32 tablet; Refills: 0, jr8 Product Selection Permitted Signatures: Dispatcher [employer] EDCj Pitts MD MD cha Roszak, Josh, PA PA jr8 Gabbie Gonzales, RN RN jh6 Gabbie Saucedo, LELO RN jg9 Corrections: (The following items were deleted from the chart) 10:34 08:44 Urine Dipstick-Ancillary ordered. jr8 jg9
--- NOTE | 2022-03-15 10:27 | ER ---
Nurse's Notes [facility] Name: Nelia Corley Age: 41 yrs Sex: Female : 1980 Arrival Date: 03/15/2022 Time: 08:25 Bed 4 Private MD: Diagnosis: Other seizures Presentation: 03/15 08:25 Chief complaint: EMS states: pt out of seizure meds x 2 days and daughter noted pt jh6 having seizure this am. unknown how long it lasted. Coronavirus screen: Vaccine status: Patient reports being unvaccinated. Ebola Screen: Patient negative for fever greater than or equal to 101.5 degrees Fahrenheit, and additional compatible Ebola Virus Disease symptoms Patient denies exposure to infectious person. Patient denies travel to an Ebola-affected area in the 21 days before illness onset. Initial Sepsis Screen: Does the patient meet any 2 criteria? No. Patient's initial sepsis screen is negative. Does the patient have a suspected source of infection? No. Patient's initial sepsis screen is negative. Risk Assessment: Do you want to hurt yourself or someone else? Patient reports no desire to harm self or others. Onset of symptoms was March 15, 2022. 08:25 Method Of Arrival: EMS: [facility] 08:25 Acuity: JENNIFER 3 jh6 Triage Assessment: 08:28 General: Appears distressed, uncomfortable, Behavior is cooperative, anxious, crying. 6 Pain: Complains of pain in face Pain currently is 10 out of 10 on a pain scale. Quality of pain is described as aching, throbbing, Pain began suddenly, Is continuous, Alleviated by nothing. Aggravated by light, noise Noted to be crying. Neuro: Level of Consciousness is awake, alert, obeys commands, Oriented to person, place, time, situation, Street Car [employer]ic are equal bilaterally Moves all extremities. Speech is normal, Facial symmetry appears normal, Pupils are PERRLA, Seizure activity reported prior to arrival. Historical: - Allergies: 08:27 Ceclor; 6 08:27 Sulfa (Sulfonamide Antibiotics); 6 08:27 Topamax; jh6 08:27 Ultram; 6 - PMHx: 08:27 Seizures; right rotator cuff torn; NSTEMI; Kidney stones; Hypertension; Hyperlipidemia; jh6 CVA; Anxiety; ADD/ADHD; - Immunization history:: Adult Immunizations up to date, Client reports having NOT received the Covid vaccine. - Social history:: Smoking status: Patient reports the use of cigarette tobacco products. Screenin:29 Abuse screen: Denies threats or abuse. Nutritional screening: No deficits noted. 6 Tuberculosis screening: No symptoms or risk factors identified. Fall Risk Secondary diagnosis (15 points) seizures, IV access (20 points). Mental Status- Oriented to own ability (0 pts). Assessment: 08:30 General: see triage note. . 6 09:30 Reassessment: Patient and/or family updated on plan of care and expected duration. Pain 6 level reassessed. Patient is alert, oriented x 3, equal unlabored respirations, skin warm/dry/pink. PT STATING THAT HER L SHOULDER IS HURTING WORSE THAN HER HEAD. PROVIDER ADVISED. 10:46 Reassessment: No changes from previously documented assessment. VERBAL UNDERSTANDING OF [facility] D/C INSTRUCTIONS AND FOLLOW UP CARE NEEDED. PT REPORTING THAT L SHOULDER SLING HELPING PAIN. ADVISED TO FOLLOW UP WITH ORTHO. Vital Signs: 08:25 BP 202 / 172; Pulse 85; Resp 18; Temp 98.0(O); Pulse Ox 98% ; Weight 104.33 kg; Height 6 5 ft. 1 in. (154.94 cm); Pain 10/10; 09:38 BP 173 / 117; Pulse 64; Resp 18; Pulse Ox 97% ; Pain 8/10; jh6 10:42 BP 184 / 116; Pulse 63; Resp 18; Pulse Ox 96% ; mb7 08:25 Body Mass Index 43.46 (104.33 kg, 154.94 cm) [facility] ED Course: 08:25 Patient arrived in ED. jh6 08:27 Triage completed. jh6 08:27 Drew Henderson PA is PHCP. jr8 08:28 Cj Mckeon MD is Attending Physician. jr8 08:29 Arm band placed on right wrist. Patient placed in the treatment room, on a stretcher, jh6 on oxygen, on grooving lathe tender, on pulse oximetry. 08:30 Bed in low position. Call light in reach. Side rails up X2. jh6 08:30 No provider procedures requiring assistance completed. jh6 08:35 Gabbie Saucedo RN is Primary Nurse. jg9 08:35 Inserted saline lock: 20 gauge in right antecubital area, using aseptic technique. jg9 Blood collected. 09:08 CT Head C Spine In Process Unspecified. EDMS 09:18 Shoulder Left (2 View) XRAY In Process Unspecified. EDMS 09:19 Patient moved back from CT. 6 09:28 EKG done, by ED staff, reviewed by Drew TRINIDAD. mb7 10:44 IV discontinued, intact, bleeding controlled, No redness/swelling at site. Pressure 6 dressing applied. 10:44 Sling \T\ swathe to left arm. jh6 Administered Medications: 09:00 Drug: Zofran (Ondansetron) 4 mg Route: IVP; Site: right antecubital; 6 09:30 Follow up: Response: No adverse reaction j9 09:00 Drug: morphine 4 mg Route: IVP; Infused Over: 4 mins; Site: right antecubital; 6 09:30 Follow up: Response: No adverse reaction; Pain is decreased j9 09:49 Drug: CEREbyx (fosphenytoin) 1 grams Route: IVPB; Site: right antecubital; j9 10:34 Follow up: IV Status: Completed infusion; IV Intake: 100ml j9 10:26 Drug: Ketorolac 15 mg Route: IVP; Site: right antecubital; 6 10:47 Follow up: Response: No adverse reaction [facility] Medication: 08:31 VIS not applicable for this client. 6 Intake: 10:34 IV: 100ml; Total: 100ml. jg9 Outcome: 10:26 Discharge ordered by . jr8 10:47 Discharged to home via wheelchair. 6 10:47 Condition: good 10:47 Discharge instructions given to patient, Instructed on discharge instructions, follow up and referral plans. Demonstrated understanding of instructions, follow-up care, medications, Prescriptions given X 1. 11:14 Patient left the ED. mb7 Signatures: Dispatcher [employer] Drew Lofton PA PA jr8 Gabbie Gonzales, RN RN jh6 Catie Conway mb7 Gabbie Saucedo, LELO RN jg9
[2022-03-15] MEDS ORDERED: KETOROLAC 30 MG/ML INJ ONE (10:31)
[2022-03-15 11:34] VITALS: BP 184/116; O2SAT 96
[2022-03-15 11:40] VITALS: TEMP 98
--- NOTE | 2022-03-16 06:41 | EKG ---
Test Date: 2022-03-15 Test Time: 09:20:10 Facilities Maintenance Technician: MB MEASUREMENT RESULTS: Intervals: Rate: 63 PA: 154 QRSD: 82 QT: 410 QTc: 419 Sebastian: P: 59 PA: 154 QRS: 66 T: 71 INTERPRETIVE STATEMENTS: Normal sinus rhythm with sinus arrhythmia Normal ECG Compared to ECG 01/16/2022 08:58:56 No significant changes Electronically Signed On 03-16-22 06:38:43 CDT by Diaz Almanzar
== END 2022-03-15 11:14 | disposition home or self-care (01) ==
LOC: ER 08:21
DX: G40.89 Other seizures (principal); Z72.0 Tobacco use; Z88.1 Allergy status to other antibiotic agents; Z88.8 Allergy status to other drugs, medicaments and biological substances
CPT/HCPCS: 96365; 93005; 85025; 80048; 36415; 80320; 80076; 70450; 72125; 73030; 96375; 99285; Q2009; J2405

== ENCOUNTER 2022-07-30 06:38 | Emergency (ER) | payer OTHER ==
--- OUTSIDE RECORDS SUMMARY | 2022-07-30 06:44 | XMS REPORT | Continuity of Care Document ---
:1980 Author Organization [facility] t Address [address] [place] [address] Care Team Providers Name Role Phone Sharpless Primary Care Physician Cammy Donnelly Attending Clinician Unavailable Maddie Pastrana Attending Clinician Pob1, Acute Care Clinic Attending Clinician Unavailable MADDIE SPANN Attending Clinician Unavailable MILAGRO KIMBROUGH Attending Clinician Unavailable MILAGRO KIMBROUGH Admitting Clinician Unavailable Payers Payer Name Policy Type Policy Number Effective Date Expiration Date [place] [id number] [facility] Problems Condition Condition Condition Status Onset Resolution Last Treating Co mments Source Name Details Category Date Date Treatment Clinician Date Anxiety Anxiety Disease Active Univers 11-24 ity of 00:00: [address] Headache Head[facility] Disease [facility] [address] Seizure Seizure Disease Active [facility] disorder disorder [facility]24 [facility] 00:[facility]: [address] [place] [address] Hypertensi Hypertensi Disease Active C HI [facility] ve urgency ve urgency 2-24 Shae kes 00:00: [address] No known No known Disease Unive rs active active ity of problems problems [facility] [id number] PTSD Problem Common (post-trau Spirit matic - [facility] stress St disorder) [facility] [id number] Dysuria Problem Common [facility] - [facility] [id number] Primary Problem Common hypertensi Spirit on - [facility] [id number] Hx of Problem Common stroke Spirit associated - [facility] with blood [facility] [id number] STD Problem Common exposure Spirit - [facility] [id number] Seizures Problem Commo n Spirit - [facility] Allergies, Adverse Reactions, Alerts Allergy Allergy Status Severity Reaction(s) Onset Inactive Treating Comm ents Source Name Type Date Date Clinician Tramadol Propensi Active Other - See Seizure Univers ty to comments 01-10 ity of adverse 00:00: [place] reaction 00 Medical s Branch TRAMADOL DRUG Active Other-Cmnt Univ ers INGREDI 01-10 ity of 00:00: [place] [facility] Ketorola Propensi Active Other - See Seizure Univers c ty to comments 01-04 ity of adverse 00:00: [place] reaction 00 Medical s Branch KETOROLA DRUG Active Other-Cmnt Univ ers C INGREDI 01-04 ity of 00:00: [place] 00 Medical Branch Sulfa Propensi Active Unknown - Unive rs (Sulfona ty to See comments 2-24 it y of mide adverse 00:00: [place] Antibiot reaction 00 Medica l ics) s Branch CEFACLOR DRUG Active Unknown-Cmnt Un yesika INGREDI 2-24 ity of 00:00: [place] 00 Medical Branch SULFA Drug Active Unknown-Cmnt Univ ers (SULFONA Class 2-24 ity of MIDE 00:00: [place] ANTIBIOT 00 Medical ICS) Branch Cefaclor Propensi Active [facility] ty to 2-24 [facility] adverse 00:00: Medical reaction 00 Center s Sulfa Drug Active [facility] (Sulfona Allergy 2-24 [facility] mide 00:00: Medical Antibiot 00 Center ics) Ketorola Propensi Active [facility] c ty to 2-24 [facility] adverse 00:00: Medical reaction 00 Center s cefaclor cefaclor Active anaphylaxis C ommon Spirit - [facility] Sulfona Sulfona Active anaphylaxis C ommon mide mide Spirit (substan (substan - CHI ce) ce) [facility] tramadol tramadol Active anaphylaxis C ommon [facility] - [facility] Social History Social Habit Start Date Stop Date Quantity Comments Source History of Tobacco Common Spirit - Use [facility] Sex Assigned At [birth year] [facility] Shae [place] 00:00:00 00:00:00 Medical Center Smoking Status Start Date Stop Date Source Former Smoker 2021-07-05 00:00:00 2021-07-05 00:00:00 Common S pirit - [facility] Ce nter Current every day 2019-11-25 00:00:00 [facility] smoker [facility] Branch Unknown if ever smoked [facility] Medications Ordered Filled Start Stop Current Ordering Indication Dosage Frequency Signature Comments Components Source Medication Medication Date Date Medication? Clinician (SIG) Name Name Eliel Tamayoantin 2020-08 No 1{capsu TID Dilantin 100 MG 100 MG 0-15 le} 100 MG 00:00: 00 Lisinopril Lisinopril 2020-08 No 1{table QD Lisinopril 10 MG 10 MG 0-15 t} 10 MG 00:00: 00 Dilantin Dilantin 2020-08 No 1{capsu TID Dilantin 100 MG 100 MG 0-15 le} 100 MG 00:00: 00 Lisinopril Lisinopril 2020-08 No 1{table QD Lisinopril 10 MG 10 MG 0-15 t} 10 MG 00:00: 00 lisinopril 2019-0 Yes 10mg Take 10 mg U nivers 10 mg 4-06 by mouth ity of tablet 20:10: daily. [address] lisinopril 2019-0 Yes 10mg Take 10 mg U nivers 10 mg 4-06 by mouth ity of tablet 20:10: daily. [address] hydrOXYzine 2020- No [id number] 50mg Take 1 Univers 50 mg 11-24 05-07 tablet by ity of tablet 00:00: 04:59 mouth 3 [place] 00 :00 (three) Medical times [place] daily as needed for Anxiety for up to 30 days. albuterol 2020- No [id number] 2{puff} Inhale 2 Univers (VENTOLIN - 05-07 Puffs ity of HFA) 90 00:00: 04:59 every 6 [place] mcg/actuati 00 :00 (six) Medical on inhaler hours as Branc h needed for Shortness of Breath or Chest tightness for up to 30 days. hydrOXYzine 2020- No [id number] 50mg Take 1 Univers 50 mg 11-24-07 tablet by ity of tablet 00:00: 04:59 mouth 3 [place] 00 :00 (three) Medical times Branch daily as needed for Anxiety for up to 30 days. albuterol 2020- No [id number] 2{puff} Inhale 2 Univers (VENTOLIN 11-24 05-07 Puffs ity of HFA) 90 00:00: 04:59 every 6 [place] mcg/actuati 00 :00 (six) Medical on inhaler hours as Branc h needed for Shortness of Breath or Chest tightness for up to 30 days. benzonatate 2020- No [id number] 100mg Take 1 Univers (TESSALON 11-24-21 capsule by [place]) 100 00:00: 04:59 mouth 3 [place] mg capsule 00 :00 (three) Medica l times Branch daily for 14 days. benzonatate 2019- No [id number] 100mg Take 1 Univers (TESSALON 11-24-21 capsule by [place]) 100 00:00: 04:59 mouth 3 [place] mg capsule 00 :00 (three) Medica l times Branch daily for 14 days. amoxicillin 2020- No [id number] 1{tbl} Take 1 Univers -clavulanat 11-24-17 tablet by it y of e 00:00: 04:59 mouth 2 [place] (AUGMENTIN) 00 :00 (two) Medical 875-125 mg times Branch per tablet daily for 10 days. amoxicillin 2019- No [id number] 1{tbl} Take 1 Univers -clavulanat 11-24-17 tablet by it y of e 00:00: 04:59 mouth 2 [place] (AUGMENTIN) 00 :00 (two) Medical 875-125 mg times Branch per tablet daily for 10 days. traMADOL 50 2018- Yes [id number] 50mg Take 1 Univers mg tablet 5-23 tablet by ity o f 00:00: mouth [place] 00 every 6 Medical (six) Branch hours as needed for Pain (scale 1-3). ondansetron 2019-0 Yes [id number] 4mg Take 1 Univers (ZOFRAN 5-23 tablet by ity of ODT) 4 mg 00:00: mouth [place] disintegrat 00 every 8 Medic al ing tablet (eight) Branch hours as needed for Nausea and Vomiting (N/V). traMADOL 50 2019-0 Yes [id number] 50mg Take 1 Univers mg tablet 5-23 tablet by ity o f 00:00: mouth [place] 00 every 6 Medical (six) Branch hours as needed for Pain (scale 1-3). ondansetron 2019-0 Yes [id number] 4mg Take 1 Univers (ZOFRAN 5-23 tablet by ity of ODT) 4 mg 00:00: mouth [place] disintegrat 00 every 8 Medic al ing tablet (eight) Branch hours as needed for Nausea and Vomiting (N/V). traMADOL 50 2018-0 Yes [id number] 50mg Take 1 Univers mg tablet 5-23 tablet by ity o f 00:00: mouth [place] 00 every 6 Medical (six) Branch hours as needed for Pain (scale 1-3). ondansetron 2019-0 Yes [id number] 4mg Take 1 Univers (ZOFRAN 5-23 tablet by ity of ODT) 4 mg 00:00: mouth [place] disintegrat 00 every 8 Medic al ing tablet (eight) Branch hours as needed for Nausea and Vomiting (N/V). ondansetron 2019-0 Yes [id number] 4mg Take 1 Univers (ZOFRAN) 4 5-17 tablet by ity of mg tablet 00:00: mouth [place] 00 every 8 Medical (eight) Branch hours as needed for Nausea and Vomiting (N/V). tamsulosin 2019-0 Yes [id number] .4mg Take 1 U nivers 0.4 mg 24 5-17 capsule by ity of hr capsule 00:00: mouth at [place] as 00 bedtime. Medical Branch pantoprazol 2019-0 Yes [id number] 40mg Take 1 Univers e 5-17 tablet by ity of (PROTONIX) 00:00: mouth [place] 40 mg EC 00 daily. Medical tablet Branch ketorolac 2019-0 Yes [id number] 10mg Take 1 Un yesika 10 mg 5-17 tablet by ity of tablet 00:00: mouth [place] 00 every 6 Medical (six) Branch hours as needed for Alternate with Callands for pain scale 4-6. ondansetron 2018-0 Yes [id number] 4mg Take 1 Univers (ZOFRAN) 4 5-17 tablet by ity of mg tablet 00:00: mouth [place] 00 every 8 Medical (eight) Branch hours as needed for Nausea and Vomiting (N/V). tamsulosin 2019-0 Yes [id number] .4mg Take 1 U nivers 0.4 mg 24 5-17 capsule by ity of hr capsule 00:00: mouth at [place] 00 bedtime. Medical Branch pantoprazol 0 Yes [id number] 40mg Take 1 Univers e 5-17 tablet by ity of (PROTONIX) 00:00: mouth [place] 40 mg EC 00 daily. Medical tablet Branch ketorolac Yes [id number] 10mg Take 1 Un yesika 10 mg 5-17 tablet by ity of tablet 00:00: mouth [place] 00 every 6 Medical (six) Branch hours as needed for Alternate with Callands for pain scale 4-6. ondansetron Yes [id number] 4mg Take 1 Univers (ZOFRAN) 4 5-17 tablet by ity of mg tablet 00:00: mouth [place] 00 every 8 Medical (eight) Branch hours as needed for Nausea and Vomiting (N/V). tamsulosin 0 Yes [id number] .4mg Take 1 U nivers 0.4 mg 24 5-17 capsule by ity of hr capsule 00:00: mouth at [place] as 00 bedtime. Medical Branch pantoprazol 0 Yes [id number] 40mg Take 1 Univers e 5-17 tablet by ity of (PROTONIX) 00:00: mouth [place] 40 mg EC 00 daily. Medical tablet Branch ketorolac 2018-0 Yes [id number] 10mg Take 1 Un yesika 10 mg 5-17 tablet by ity of tablet 00:00: mouth [place] 00 every 6 Medical (six) Branch hours as needed for Alternate with [place] for pain scale 4-6. ciprofloxac 2018-0 Yes [id number] 500mg Take 1 Univers in HCl 500 5-17 tablet by ity of mg tablet 00:00: mouth 2 [place] 00 (two) Medical times Branch daily. metroNIDAZO 2019-0 Yes [id number] 500mg Take 1 Univers LE 500 mg 5-17 tablet by ity o f tablet 00:00: mouth 2 [place] 00 (two) Medical times Branch daily. ciprofloxac 2018-2019- No [id number] 500mg Take 1 Univers in HCl 500 5-17 -06 tablet by ity of mg tablet 00:00: 00:00 mouth 2 [place] :[place] (two) Medical times Branch daily. metroNIDAZO 2019- No [id number] 500mg Take 1 Univers LE 500 mg 5-17 -06 tablet by ity of tablet 00:00: 00:00 mouth 2 [place] 00 :00 (two) Medical times Branch daily. phenytoin 2018- Yes 300mg 300 mg. Univ ers Extended 1-10 ity of 100 mg 00:00: [place] capsule 00 Medical Branch phenytoin 2018- Yes 300mg 300 mg. Univ ers Extended 1-10 ity of 100 mg 00:00: [place] capsule 00 Medical Branch cyclobenzap 2017-0 Yes 5mg Take 1 Univ ers rine 5 mg 6-29 tablet by ity o f tablet 00:00: mouth 3 [place] (three) Medical times Branch daily. cyclobenzap 2017-0 Yes 5mg Take 1 Univ ers rine 5 mg 6-29 tablet by ity o f tablet 00:00: mouth 3 [place] (three) Medical times Branch daily. cyclobenzap 2017-0 Yes 5mg Take 1 Univ ers rine 5 mg 6-29 tablet by ity o f tablet 00:00: mouth 3 [place] (three) Medical times Branch daily. phenytoin 2017- Yes epilepsy Q.[id number] Take by [facility] (DILANTIN) 2-28 [id number] mouth 3 [facility] 100 MG ER 00:41: 3D (three) Medic al capsule 28 times Center daily. THC Free 20 THC Free 20 No THC Free MG/ML MG/ML 20 MG/ML Dilantin Dilantin No 1{capsu TID Dilantin 100 MG 100 MG le} 100 MG Melatonin 3 Melatonin 3 No 2{table QD Melatonin MG MG t_at_be 3 MG dtime_a s_neede d} Lisinopril Lisinopril No Lisinopril 10 MG 10 MG 10 MG Phenytoin Phenytoin No Phenytoin Sodium Sodium Sodium Extended Extended Extended 100 MG 100 MG 100 MG Melatonin 3 Melatonin 3 No 2{table QD Melatonin MG MG t_at_be 3 MG dtime_a s_neede d} THC Free 20 THC Free 20 No THC Free MG/ML MG/ML 20 MG/ML Melatonin 3 Melatonin 3 No 2{table QD Melatonin MG MG t_at_be 3 MG dtime_a s_neede d} THC Free 20 THC Free 20 No THC Free MG/ML MG/ML 20 MG/ML THC Free 20 THC Free 20 No THC Free MG/ML MG/ML 20 MG/ML Dilantin Dilantin No 1{capsu TID Dilantin 100 MG 100 MG le} 100 MG Melatonin 3 Melatonin 3 No 2{table QD Melatonin MG MG t_at_be 3 MG dtime_a s_neede d} Lisinopril Lisinopril No Lisinopril 10 MG 10 MG 10 MG Phenytoin Phenytoin No Phenytoin Sodium Sodium Sodium Extended Extended Extended 100 MG 100 MG 100 MG Vital Signs Vital Name Observation Time Observation Value Comments Source height 2021-06-04 09:00:00 61 [in_i] [facility] weight 2021-06-04 09:00:00 238 [lb_av] [facility] temperature 2021-06-04 09:00:00 97.8 [degF] [facility] bmi 2021-06-04 09:00:00 44.96 kg/m2 [facility] oximetry 2021-06-04 09:00:00 98 % [facility] respiratory rate 2021-06-04 09:00:00 17 /min [facility] blood pressure 2021-06-04 09:00:00 168 mm[Hg] Common [facility] - systolic [facility] blood pressure 2021-06-04 09:00:00 94 mm[Hg] Common [facility] - diastolic [facility] Systolic blood 2019-11-25 20:10:00 166 mm[Hg] Univer sity of pressure [facility] Diastolic blood 2019-11-25 20:10:00 106 mm[Hg] Unive rsity of [facility] Heart rate 2019-11-25 20:07:00 97 /min Universi ty [facility] Body temperature 2019-11-25 20:07:00 36.83 Sara [facility] Res[facility] rate 2019-11-25 20:07:00 18 /min [facility] Body weight 2019-11-25 20:07:00 108.863 kg Universi ty [facility] Oxygen saturation in 2019-11-25 20:07:00 96 /min University of Arterial blood by [facility] hellen Pulse oximetry Branch Systolic blood 2019-11-25 20:10:00 166 mm[Hg] Univer sity of pressure [facility] Diastolic blood 2019-11-25 20:10:00 106 mm[Hg] Unive rsity of pressure [facility] Heart rate 2019-11-25 20:07:00 97 /min Universi [facility] Body temperature 2019-11-25 20:07:00 36.83 Sara [facility] Respiratory rate 2019-11-25 20:07:00 18 /min [facility] Body weight 2019-11-25 20:07:00 108.863 kg Universi ty [facility] Oxygen saturation in 2019-11-25 20:07:00 96 /min University of Arterial blood by [facility] Pulse oximetry Branch Procedures This patient has no known procedures. Encounters Start End Encounter Admission Attending Care Care Encounter Source Date/Time Date/Time Type Type Clinicians Facility Department ID 2021-09-15 Outpatient Andrzej STMICHELLC STLMLC [id number] Common 14:01:03 Cammy [id number] [facility] 2022-05-16 2022-05-16 (TEL) STLMLC STLMLC [id number] Co mmon 00:00:00 00:00:00 [facility] 2021-06-08 2021-06-08 (TEL) STLMLC STLMLC [id number] Co mmon 00:00:00 00:00:00 [facility] 2021-06-04 2021-06-04 OFFICE STLMLC STLMLC [id number] Co mmon 00:00:00 00:00:00 VISIT [facility] PT LEVEL 4 [facility] 2019-11-27 2019-11-27 Telephone GABRIEL Spann [id number] Univers 00:00:00 00:00:00 [facility] [id number] it y of [place] [id number] [place] Professio [phone] [address] Office Building One 2019-11-27 2019-11-27 Telephone Randa [facility] [id number] 00:00:00 00:00:00 [facility] [id number] [place] [id number] Professio [phone] [place] [address] [address] 2019-11-25 2019-11-25 Urgent Pob1, Acute Care Clinic [facility] [id number]. [id number] [facility] 14:55:25 15:15:25 [facility] [id number] ity of [place] [id number] [place] Professio [phone] [address] Office [address] One 2019-11-25 2019-11-25 Urgent Pob1, Acute [facility] [id number] 14:55:25 15:15:25 Care [facility] Health [id number] [place] [id number] Professio [phone] [place] [address] [address] 2019-11-25 2019-11-25 [id number] Univers 15:00:00 15:00:00 MADDIE ity of [facility] 2019-11-25 2019-11-25 Telephone Pob1, Acute [facility] [id number] Univers 00:00:00 00:00:00 Care [facility] Health [id number] ity of [place] [id number] [place] Professio [phone] [address] Office [address] One 2019-11-25 2019-11-25 Telephone Pob1, Acute [facility] [id number] 00:00:00 00:00:00 Care Clinic Health [id number] [place] [id number] Professio [phone] [place] [address] [address] Results Test Description Test Time Test Comments Results Result Comments Source SARS-COV2/RT-PCR ([facility]) 2020-02-29 10:51:00 Test Item Value Reference Range Interpretation Comme nts SARS-COV2/RT-PCR (test code = 4357638) Negative Not Detected, N egative SARS-COV-2 PERFORMING LAB (test code = 2472440) [facility] Negative result for this test [...] justifying the authorization of the emergency use ofin vitro diagnostic tests for detection and/or diagnosis of COVID-19 is terminated under Section 564(b)(2) of the Act or the EUA is revoked under Section 564(g) of the Act.Fact Sheet for Healthcare Prov iders:https://www.[employer] Begun/sites/default/files/product/documents/Fact_Sheet_HC _Lothwcyqj_Mfxq_EYEO-SpQ-3.pdfFact Sheet for Healthcare Patients:https://www.[employer]/sites/default/files/product/docume nts/Lukx_Mlxwz_Grggfuhq_Jiyk_IJTZ-JaN-7.pdfPerforming Laboratory:[facility], [place] [address]MUZIZDRITLD ANTIBODIES, IGG AND [id number] 11:17:00 Test Item Value Reference Range Interpretation Comments ANTICARDIOLIPIN IGG ANTIBODY (BEAKER) < GPL (test code = 712) ANTICARDIOLIPIN IGM ANTIBODY (BEAKER) 0.6 MPL (test code = 713) Anticardiolipin IgG Result Interpretation: NEG:<20 GPL; U/mlPOS:>/=20 GPL;U/mlAnticardiolipin IgM Result Interpretation: NEG:<20 MPL; U/mlPOS:>/=20 MPL;[id number] 19:19:00 Test Item Value Reference Range Interpretation Comments HOMOCYSTEINE (BEAKER) (test code 19.1 umol/L 5.1-15.4 H = 642) HEMOGLOBIN [id number] 16:55:00 Test Item Value Reference Range Interpretation Comments HEMOGLOBIN A1C (BEAKER) (test code = 5.1 % 4.3-6.1 368) TSH/FREE T4 IF [id number] 16:00:00 Test Item Value Reference Range Interpretation Comments THYROID STIMULATING HORMONE 1.64 uIU/mL 0.35-4.94 (BEAKER) (test code = 772) VITAMIN B12 AND [id number] 16:00:00 Test Item Value Reference Range Interpretation Comments VITAMIN B12 (BEAKER) (test code = 241 pg/mL 213-816 774) FOLATE (BEAKER) (test code = 362) 3.7 ng/mL >=7.0 L Effective 07/08/2014: Folate Reference Range ChangeNew: >=7.0 Previous: >=5.4SEDIMENTATION [id number] 15:57:00 Test Item Value Reference Range Interpretation Comments SEDIMENTATION RATE, ERYTHROCYTE 8 mm/HR 0-20 (BEAKER) (test code = 766) LIPID [id number] 15:32:00 Test Item Value Reference Range Interpretation Comments TRIGLYCERIDES (BEAKER) (test code = 98 mg/dL 540) CHOLESTEROL (BEAKER) (test code = 200 mg/dL 631) HDL CHOLESTEROL (BEAKER) (test code 51 mg/dL = 976) LDL CHOLESTEROL CALCULATED (BEAKER) 129 mg/dL (test code = 633) Triglyceride Reference Range: Low Risk <150 Borderline 150-199 High Risk 200- 499 Very High Risk >=500Cholesterol Reference Range: Low Risk <200 Borderline 200-239 High Risk >240HDL Cholesterol Reference Range: Low Risk >=60 High Risk <40LDL Cholesterol Reference Range: Optimal <100 Near Optimal 100-129 Borderline 130-159 High 160-189 Very High >=190C-REACTIVE [id number] 15:30:00 Test Item Value Reference Range Interpretation Comments C-REACTIVE PROTEIN (BEAKER) (test 2.96 mg/dL 0.00-0.50 H code = 676) CBC W/PLT COUNT & AUTO [id number] 15:05:00 Test Item Value Reference Range Interpretation [...] K/ L 0.00-0.20 (test code = 417) [id number] 07:34:00 Test Item Value Reference Range Interpretation Comments MAGNESIUM (BEAKER) 2.0 mg/dL 1.6-2.6 Specimen slightly (test code = 627) hemolyzed BASIC METABOLIC [id number] 07:33:00 Test Item Value Reference Range Interpretation [...] S NOT APPLICABLE FOR DIALYSIS PATIEN TS. [id number] 07:27:00 Test Item Value Reference Range Interpretation Comments MAGNESIUM (BEAKER) (test code = 1.7 mg/dL 1.6-2.6 627) SCREEN, [id number] 13:54:00 Test Item Value Reference Range Interpretation Comments TEST URINE (BEAKER) (test Negative code = 583) [id number] 02:55:00 Test Item Value Reference Range Interpretation Comments MAGNESIUM (BEAKER) (test code = 1.8 mg/dL 1.6-2.6 627) PHENYTOIN LEVEL, [id number] 00:30:00 Test Item Value Reference Range Interpretation Comments PHENYTOIN (DILANTIN) (BEAKER) (test 7.3 ug/mL 10.0-20.0 L code = 605) HEPATIC FUNCTION [id number] 00:26:00 Test Item Value Reference Range Interpretation [...] = 20 U/L 6-55 347) BASIC METABOLIC [id number] 00:26:00 Test Item Value Reference Range Interpretation [...] S NOT APPLICABLE FOR DIALYSIS PATIEN TS. [id number] 00:26:00 Test Item Value Reference Range Interpretation Comments ALBUMIN (BEAKER) (test code = 1145) 3.8 g/dL 3.5-5.0 CBC W/PLT COUNT & AUTO [id number] 00:16:00 Test Item Value Reference Range Interpretation [...]
--- NOTE | 2022-07-30 07:27 | RAD REPORT ---
EXAM DESCRIPTION: CT - Head Brain Wo Cont - 07/30/2022 7:15 am CLINICAL HISTORY: Seizure disorder, no clinical change COMPARISON: <Comparisons> TECHNIQUE: All CT scans are performed using dose optimization technique as appropriate and may inclu de automated exposure control or mA/KV adjustment according to patient size. FINDINGS: No intracranial hemorrhage, hydrocephalus or extra-axial fluid collection.No areas of brai n edema or evidence of midline shift. The paranasal sinuses and mastoids are clear. The calvarium is intact. IMPRESSION: No acute intracranial abnormality.
[2022-07-30] MEDS ORDERED: LEVETIRACETAM 500 MG/5 ML VIAL IV ONE (07:43)
[2022-07-30] MEDS ORDERED: PROMETHAZINE INJ 25 MG/ML AMP ONE ×2 (07:43→07:46)
[2022-07-30] MEDS ORDERED: NA CHLORIDE 0.9% 100 ML IV ONE (07:44)
[2022-07-30] MEDS ORDERED: NA CHLORIDE 0.9% 1,000 ML ONE (07:44)
--- NOTE | 2022-07-30 07:51 | RAD REPORT ---
EXAM DESCRIPTION: RAD - Shoulder Left 2 View - 07/30/2022 7:39 am CLINICAL HISTORY: PAIN COMPARISON: <Comparisons> FINDINGS/IMPRESSION: Overriding of the humeral head at the glenoid. No definite fracture of the lacy oid is difficult to assess. Left AC joint degenerative changes. Cannot totally exclude a left shoulde r dislocation. A transscapular Y-view or CT could confirm.
[2022-07-30 08:09] LABS: Absolute Lymphocytes (CBC) 1.2 K/uL (0.7-4.9); Hematocrit 48.9 % (36.0-45.0); MCV 88.4 fL (80-100); MPV 7.9 fL (7.6-11.3); RBC Red Blood Cell Count 5.53 M/uL (3.86-4.86)
[2022-07-30 08:28] LABS: Albumin 3.6 g/dL (3.4-5.0); Bilirubin Total 0.9 mg/dL (0.2-1.0); Potassium 3.7 mmol/L (3.5-5.1); Protein, Total 7.2 g/dL (6.4-8.2)
--- NOTE | 2022-07-30 10:04 | EDPHYS ---
Physician Documentation [facility] Name: Nelia Corley Age: 42 yrs Sex: Female : 1980 Arrival Date: 07/30/2022 Time: 06:40 Bed 6 Private MD: ED Physician Feng Rodgers HPI: 07/30 10:05 This 42 yrs old Female presents to ER via EMS with complaints of seizure. rt 10:05 out of dilantin. Onset: The symptoms/episode began/occurred just prior to arrival. rt Severity of symptoms: At their worst the symptoms were moderate. . 10:05 Onset: The symptoms/episode began/occurred. Onset: The symptoms/episode began/occurred rt just prior to arrival, last night. She presents to the ED with a seizure that occurred last night. Patient states that she has been out of her Dilantin due to insurance issues. The patient denies any injury. Reports a worsening of her left shoulder pain but denies other acute complaints. Symptoms are moderate in severity, no other aggravating or alleviating factors.. Historical: - Allergies: 06:43 Ceclor; ke1 06:43 Sulfa (Sulfonamide Antibiotics); ke1 06:43 Topamax; ke1 06:43 Ultram; ke1 - PMHx: 06:43 ADD/ADHD; Anxiety; CVA; Hyperlipidemia; Hypertension; Kidney stones; NSTEMI; right ke1 rotator cuff torn; Seizures; - Immunization history:: Adult Immunizations unknown. - Social history:: Smoking status: Patient reports the use of cigarette tobacco products, Patient/guardian denies using tobacco, the patient reports quitting approximately 2 years ago. - Family history:: not pertinent. ROS: 10:05 Constitutional: Negative for fever, chills, and weight loss, Eyes: Negative for injury, rt pain, redness, and discharge, ENT: Negative for injury, pain, and discharge, Neck: Negative for injury, pain, and swelling, Cardiovascular: Negative for chest pain, palpitations, and edema, Respiratory: Negative for shortness of breath, cough, wheezing, and pleuritic chest pain, Abdomen/GI: Negative for abdominal pain, nausea, vomiting, diarrhea, and constipation, Skin: Negative for injury, rash, and discoloration, Psych: Negative for depression, anxiety, suicide ideation, homicidal ideation, and hallucinations. 10:05 MS/extremity: Positive for Left shoulder pain, denies deformity. 10:05 Neuro: Positive for headache, seizure activity. Exam: 10:05 Constitutional: This is a well developed, well nourished patient who is awake, alert, rt and in no acute distress. Head/Face: Normocephalic, atraumatic. Neck: Trachea midline, no thyromegaly or masses palpated, and no cervical lymphadenopathy. Supple, full range of motion without nuchal rigidity, or vertebral point tenderness. No Meningismus. Chest/axilla: Normal chest wall appearance and motion. Nontender with no deformity. No lesions are appreciated. Cardiovascular: Regular rate and rhythm with a normal S1 and S2. No gallops, murmurs, or rubs. Normal PMI, no JVD. No pulse deficits. Respiratory: Lungs have equal breath sounds bilaterally, clear to auscultation and percussion. No rales, rhonchi or wheezes noted. No increased work of breathing, no retractions or nasal flaring. Abdomen/GI: Soft, non-tender, with normal bowel sounds. No distension or tympany. No guarding or rebound. No evidence of tenderness throughout. Neuro: Awake and alert, GCS 15, oriented to person, place, time, and situation. Cranial nerves II-XII grossly intact. Motor strength 5/5 in all extremities. Sensory grossly intact. Cerebellar exam normal. Normal gait. Psych: Awake, alert, with orientation to person, place and time. Behavior, mood, and affect are within normal limits. Vital Signs: 06:40 BP 188 / 136; Pulse 77; Resp 21; Temp 98.4(O); Pulse Ox 94% on R/A; Weight 108.86 kg; ke1 Height 5 ft. 2 in. (157.48 cm); Pain 0/10; 07:27 BP 193 / 124; Pulse 76; Resp 20; Temp 98.4(O); Pulse Ox 97% on R/A; mm9 08:18 BP 214 / 180; Pulse 76; Resp 18; Pulse Ox 97% on R/A; mm9 09:00 BP 195 / 117; Pulse 71; Resp 15; Pulse Ox 97% ; jl7 10:00 BP 158 / 115; Pulse 76; Resp 16; Pulse Ox 97% ; jl7 06:40 Body Mass Index 43.90 (108.86 kg, 157.48 cm) ke1 MDM: 07:06 Patient medically screened. rt 10:05 Differential Diagnosis Seizure, electrolyte abnormalities, alcohol withdrawal. Data rt reviewed: vital signs, nurses notes, old medical records, lab test result(s), radiologic studies. ED course: Patient presents to the ED with a recurrent seizure due to not taking Dilantin. She is also out of her lisinopril attributing for the hypertension. There is no evidence of endorgan dysfunction. Patient states that she typically gets a headache and nausea after having a seizure as well as a left shoulder pain which is chronic in nature. X-ray, CT shows no acute abnormalities, labs are benign. Patient stable for outpatient care, return precautions discussed. Will refill the patient's Dilantin and lisinopril. 07/30 06:56 Order name: ETOH Level; Complete Time: 08:40 kdr 07/30 06:56 Order name: CT Head Brain wo Cont; Complete Time: 07:39 kdr 07/30 06:56 Order name: Shoulder Left (2 View) XRAY; Complete Time: 08:06 kdr 07/30 06:56 Order name: CBC with Diff; Complete Time: 08:40 kdr 07/30 06:56 Order name: CMP; Complete Time: 09:42 kdr Administered Medications: 08:37 Drug: Keppra (levETIRAcetam) 1000 mg Route: IV; Rate: calculated rate; Site: left wrist;jl7 09:00 Follow up: Response: No adverse reaction; IV Status: Completed infusion jl7 08:37 Drug: NS 0.9% 1000 ml Route: IV; Rate: 1 bolus; Site: left wrist; jl7 09:45 Follow up: Response: No adverse reaction; IV Status: Completed infusion; IV Intake: jl7 1000ml 08:37 Drug: Phenergan (promethazine) 12.5 mg Route: IM; Site: right deltoid; jl7 09:30 Follow up: Response: No adverse reaction; Marked relief of symptoms jl7 10:14 Drug: Ondansetron 4 mg Route: PO; jl7 10:26 Follow up: Response: Medication administered at discharge. jl7 Disposition Summary: 07/30/22 10:03 Discharge Ordered Location: Home rt Problem: an acute exacerbation rt Symptoms: are resolved rt Condition: Stable rt Diagnosis - Epileptic seizures related to external causes, not intractable rt - Essential (primary) hypertension rt Followup: rt - With: Private Physician - When: 2 - 3 days - Reason: Discharge Instructions: - Discharge Summary Sheet rt - Seizure, Adult rt - Hypertension, Adult, Sxch-gm-Admn rt Forms: - Medication Reconciliation Form rt - Thank You Letter rt - Antibiotic Education rt - Prescription Opioid Use rt Prescriptions: - Dilantin Kapseal 100 mg Oral Capsule - take 1 capsule by ORAL route every 8 hours; 90 capsule; Refills: 0, Product rt Selection Permitted - Lisinopril 20 mg Oral Tablet - take 1 tablet by ORAL route once daily; 30 tablet; Refills: 0, Product rt Selection Permitted Signatures: Dispatcher [employer] Hank Stewart MD MD kdr Leal, Jahala, RN RN jl7 Danuta Bill RN RN ke1 Feng Rodgers MD MD rt
--- NOTE | 2022-07-30 10:04 | ER ---
Nurse's Notes [facility] Name: Nelia Corley Age: 42 yrs Sex: Female : 1980 Arrival Date: 07/30/2022 Time: 06:40 Bed 6 Private MD: Diagnosis: Epileptic seizures related to external causes, not intractable;Essential (primary) hypertension Presentation: 07/30 06:40 Chief complaint: EMS states: Seizure around 1730 last evening, patient woke up this am ke1 morning crying and confused, had about 5 shots yesterday. Coronavirus screen: Vaccine status: Patient reports receiving the 2nd dose of the covid vaccine. Ebola Screen: No symptoms or risks identified at this time. Initial Sepsis Screen: Does the patient meet any 2 criteria? No. Patient's initial sepsis screen is negative. Does the patient have a suspected source of infection? No. Patient's initial sepsis screen is negative. Risk Assessment: Do you want to hurt yourself or someone else? Patient reports no desire to harm self or others. Onset of symptoms was July 29, 2022 at 17:30. 06:40 Method Of Arrival: EMS: [facility] ke1 06:40 Acuity: JENNIFER 3 ke1 Triage Assessment: 06:44 General: Appears obese, Behavior is crying. Pain: Denies pain. ke1 Historical: - Allergies: 06:43 Ceclor; ke1 06:43 Sulfa (Sulfonamide Antibiotics); ke1 06:43 Topamax; ke1 06:43 Ultram; ke1 - PMHx: 06:43 ADD/ADHD; Anxiety; CVA; Hyperlipidemia; Hypertension; Kidney stones; NSTEMI; right ke1 rotator cuff torn; Seizures; - Immunization history:: Adult Immunizations unknown. - Social history:: Smoking status: Patient reports the use of cigarette tobacco products, Patient/guardian denies using tobacco, the patient reports quitting approximately 2 years ago. - Family history:: not pertinent. Screenin:44 Abuse screen: Denies threats or abuse. Nutritional screening: No deficits noted. ke1 Tuberculosis screening: No symptoms or risk factors identified. Fall Risk Fall in past 12 months (25 points). Secondary diagnosis (15 points) seizures, No IV (0 pts). Ambulatory Aid- None/Bed Rest/Nurse Assist (0 pts). Gait- Normal/Bed Rest/Wheelchair (0 pts) Mental Status- Oriented to own ability (0 pts). Total Babcock Fall Scale indicates Low Risk Score (25-44 pts). Fall prevention measures have been instituted. Side Rails Up X 2 Frequent Obs/Assesments occuring. Assessment: 07:30 Reassessment: Pt reports "I have not taken my htn medication yet this morning.". jl7 08:30 Reassessment: Patient appears in no apparent distress at this time. No changes from jl7 previously documented assessment. Patient and/or family updated on plan of care and expected duration. Pain level reassessed. Patient is alert, oriented x 3, equal unlabored respirations, skin warm/dry/pink. 09:30 Reassessment: Patient appears in no apparent distress at this time. No changes from jl7 previously documented assessment. Patient and/or family updated on plan of care and expected duration. Pain level reassessed. Patient is alert, oriented x 3, equal unlabored respirations, skin warm/dry/pink. Vital Signs: 06:40 BP 188 / 136; Pulse 77; Resp 21; Temp 98.4(O); Pulse Ox 94% on R/A; Weight 108.86 kg; ke1 Height 5 ft. 2 in. (157.48 cm); Pain 0/10; 07:27 BP 193 / 124; Pulse 76; Resp 20; Temp 98.4(O); Pulse Ox 97% on R/A; mm9 08:18 BP 214 / 180; Pulse 76; Resp 18; Pulse Ox 97% on R/A; mm9 09:00 BP 195 / 117; Pulse 71; Resp 15; Pulse Ox 97% ; jl7 10:00 BP 158 / 115; Pulse 76; Resp 16; Pulse Ox 97% ; jl7 06:40 Body Mass Index 43.90 (108.86 kg, 157.48 cm) ke1 ED Course: 06:40 Patient arrived in ED. ke1 06:40 Danuta Bill RN is Primary Nurse. ke1 06:41 Hank Collins MD is Attending Physician. kdr 06:43 Triage completed. ke1 06:45 Arm band placed on left wrist. ke1 06:45 Bed in low position. Call light in reach. Side rails up X 1. Side rails up X2. ke1 07:04 Missed attempt(s): 20 gauge in left antecubital area. ke1 07:06 Attending Physician role handed off by Hank Collins MD rt 07:06 Feng Rodgers MD is Attending Physician. rt 07:16 CT Head Brain wo Cont In Process Unspecified. EDMS 07:40 Shoulder Left (2 View) XRAY In Process Unspecified. EDMS 08:20 No provider procedures requiring assistance completed. Initial lab(s) drawn, by ny, jl7 sent to lab. Inserted saline lock: 24 gauge in left wrist, using aseptic technique. Blood collected. 10:25 IV discontinued, intact, bleeding controlled, No redness/swelling at site. Pressure jl7 dressing applied. Administered Medications: 08:37 Drug: Keppra (levETIRAcetam) 1000 mg Route: IV; Rate: calculated rate; Site: left wrist;jl7 09:00 Follow up: Response: No adverse reaction; IV Status: Completed infusion jl7 08:37 Drug: NS 0.9% 1000 ml Route: IV; Rate: 1 bolus; Site: left wrist; jl7 09:45 Follow up: Response: No adverse reaction; IV Status: Completed infusion; IV Intake: jl7 1000ml 08:37 Drug: Phenergan (promethazine) 12.5 mg Route: IM; Site: right deltoid; jl7 09:30 Follow up: Response: No adverse reaction; Marked relief of symptoms jl7 10:14 Drug: Ondansetron 4 mg Route: PO; jl7 10:26 Follow up: Response: Medication administered at discharge. jl7 Medication: 09:30 VIS not applicable for this client. jl7 Intake: 09:45 IV: 1000ml; Total: 1000ml. jl7 Outcome: 10:03 Discharge ordered by . rt 10:25 Discharged to home via wheelchair. jl7 10:25 Condition: stable 10:25 Discharge instructions given to patient, Instructed on discharge instructions, follow up and referral plans. medication usage, Demonstrated understanding of instructions, follow-up care, medications, Prescriptions given X 2. 10:26 Patient left the ED. jl7 Signatures: Dispatcher [employer] EDNE Hank Collins MD MD kdr Leal, Jahala, RN RN jl7 Danuta Bill RN RN ke1 Martinez, Maria mm9 Feng Rodgers MD MD rt Corrections: (The following items were deleted from the chart) 06:52 06:40 Chief complaint: EMS states: Seizure around 1730 last evening, patient woke up ke1 this am morning crying and confused ke1 08:37 08:37 Keppra (levETIRAcetam) 1000 mg IV at calculated rate in right antecubital jl7 jl7
[2022-07-30] MEDS ORDERED: ONDANSETRON 4 MG (ODT) TAB ONE (10:14)
[2022-07-30] MEDS ORDERED: IBUPROFEN 200 MG TAB PO ONE (10:47)
[2022-07-30 18:33] VITALS: TEMP 98.4
[2022-07-30 18:40] VITALS: O2SAT 97
[2022-07-30 18:44] VITALS: BP 158/115
== END 2022-07-30 10:26 | disposition home or self-care (01) ==
LOC: ER 06:38
DX: G40.509 Epileptic seizures related to external causes, not intractable, without status epilepticus (principal); I10 Essential (primary) hypertension; Z88.1 Allergy status to other antibiotic agents; Z88.2 Allergy status to sulfonamides; Z88.8 Allergy status to other drugs, medicaments and biological substances
CPT/HCPCS: 96365; 96361; 85025; 36415; 80320; 80053; 70450; 73030; 96372; 99284; J2550 ×2; Q0162; J1953; J7030

== ENCOUNTER 2022-12-30 05:41 | Emergency (ER) | payer OTHER ==
--- OUTSIDE RECORDS SUMMARY | 2022-12-30 05:45 | XMS REPORT | Continuity of Care Document ---
:1980 Author Organization [facility] t Address [address] [place] [address] Care Team Providers Name Role Phone Sharpless Primary Care Physician Cammy Donnelly Attending Clinician Unavailable Maddie Pastrana Attending Clinician Pob1, Acute Care Clinic Attending Clinician Unavailable MADDIE SPANN Attending Clinician Unavailable MILAGRO KIMBROUGH Attending Clinician Unavailable MILAGRO KIMBROUGH Admitting Clinician Unavailable Payers Payer Name Policy Type Policy Number Effective Date Expiration Date S [place] [id number] Common [facility] Problems Condition Condition Condition Status Onset Resolution Last Treating Co mments Source Name Details Category Date Date Treatment Clinician Date Anxiety Anxiety Disease Active Univers 11-24 ity of 00:00: [address] Seizure Seizure Disease Recurre [facility] Medical [address] [place] [address] Headache Headache Disease Active [facility] Medical [address] [place] [address] Hypertensi Hypertensi Disease Active C [facility] ve urgency ve urgency 2-24 Shae kes 00:00: Medical [address] [place] [address] No known No known Disease Unive rs active active ity of problems problems [facility] [id number] PTSD Problem Common (post-trau Spirit matic - [facility] stress [facility] disorder) [facility] [id number] Dysuria Problem [facility] [id number] Primary Problem Common hypertensi Spirit on - [facility] [id number] Hx of Problem Common stroke Spirit associated - [facility] with blood St clotting [facility] [id number] STD Problem Common exposure Spirit - [facility] [id number] Seizures Problem Commo n [facility] - [facility] Allergies, Adverse Reactions, Alerts Allergy [...] Unive rs (Sulfona ty to See comments -24 it y of mide adverse 00:00: [place] [...] Active anaphylaxis C ommon [facility] - [facility] Sulfona Sulfona Active anaphylaxis C ommon mide mide Spirit (substan (substan - CHI ce) ce) [facility] tramadol tramadol Active anaphylaxis C ommon [facility] - [facility] Social History Social Habit Start Date Stop Date Quantity Comments Source History of Tobacco [facility] - Use [facility] Sex Assigned At [birth year] PETER Vargas 00:00:00 [facility]:00:00 [facility] Smoking Status Start Date Stop Date Source Former Smoker 2021-07-05 00:00:00 2021-07-05 00:00:00 Common S pirit - [facility] Ce nter Current every day 2019-11-25 00:[facility] Branch Unknown if ever smoked [facility] Medications Ordered Filled Start [...] by mouth ity of tablet 20:10: daily. [address] lisinopril 2019- Yes 10mg Take 10 mg U nivers 10 mg 4-06 by mouth ity of tablet 20:10: daily. [address] hydrOXYzine 2020- No [id number] 50mg Take 1 Univers 50 mg 11-24 05-07 tablet by ity of tablet 00:00: 04:59 mouth 3 [place] 00 :00 (three) Medical times [place] daily as needed for Anxiety for up to 30 days. albuterol 2020- No [id number] 2{puff} Inhale 2 Univers (VENTOLIN 11-24 05-07 Puffs ity of HFA) 90 00:00: 04:59 every 6 [place] mcg/actuati 00 :00 (six) Medical on inhaler hours as Branc h needed for Shortness of Breath or Chest tightness for up to 30 days. hydrOXYzine 2019- No [id number] 50mg Take 1 Univers 50 mg 11-24-07 tablet by ity of tablet 00:00: 04:59 mouth 3 [place] 00 :00 (three) Medical times Branch daily as needed for Anxiety for up to 30 days. albuterol 2019- No [id number] 2{puff} Inhale 2 Univers (VENTOLIN 4- 05-07 Puffs ity of HFA) 90 00:00: 04:59 every 6 [place] mcg/actuati 00 :00 (six) Medical on inhaler hours as Branc h needed for Shortness of Breath or Chest tightness for up to 30 days. benzonatate 2020- No [id number] 100mg Take 1 Univers (TESSALON 11-24-21 capsule by itCherise) 100 00:00: 04:59 mouth 3 [place] mg capsule 00 :00 (three) Medica l times Branch daily for 14 days. benzonatate 2019- No [id number] 100mg Take 1 Univers (TESSALON 11-24-21 capsule by Elida) 100 00:00: 04:59 mouth 3 [place] mg capsule 00 :00 (three) Medica l times Branch daily for 14 days. amoxicillin 2020- No [id number] 1{tbl} Take 1 Univers -clavulanat 11-24-17 tablet by it y of e 00:00: 04:59 mouth 2 [place] (AUGMENTIN) 00 :00 (two) Medical 875-125 mg times Branch per tablet daily for 10 days. amoxicillin 2020- No [id number] 1{tbl} Take 1 Univers -clavulanat 11-24-17 tablet by it y of e 00:00: 04:59 mouth 2 [place] (AUGMENTIN) 00 :00 (two) Medical 875-125 mg times Branch per tablet daily for 10 days. traMADOL 50 2018- Yes [id number] 50mg Take 1 Univers mg tablet 5-23 tablet by ity o f 00:00: mouth [place] 00 every 6 Medical (six) Branch hours as needed for Pain (scale 1-3). ondansetron 2019-0 Yes [id number] 4mg Take 1 Univers (ZOFRAN 5-23 tablet by ity of ODT) 4 mg 00:00: mouth [place] disintegrat 00 every 8 Medic al ing tablet (eight) Branch hours as needed for Nausea and Vomiting (N/V). traMADOL 50 2019-0 Yes [id number] 50mg Take 1 Univers mg tablet 5-23 tablet by ity o f 00:00: mouth [place] 00 every 6 Medical (six) Branch hours as needed for Pain (scale 1-3). ondansetron 2019-0 Yes [id number] 4mg Take 1 Univers (ZOFRAN 5-23 tablet by ity of ODT) 4 mg 00:00: mouth [place] disintegrat 00 every 8 Medic al ing tablet (eight) Branch hours as needed for Nausea and Vomiting (N/V). traMADOL 50 2018-0 Yes [id number] 50mg Take 1 Univers mg tablet 5-23 tablet by ity o f 00:00: mouth [place] 00 every 6 Medical (six) Branch hours as needed for Pain (scale 1-3). ondansetron 2019-0 Yes [id number] 4mg Take 1 Univers (ZOFRAN 5-23 tablet by ity of ODT) 4 mg 00:00: mouth [place] disintegrat 00 every 8 Medic al ing tablet (eight) Branch hours as needed for Nausea and Vomiting (N/V). ondansetron 2019-0 Yes [id number] 4mg Take 1 Univers (ZOFRAN) 4 5-17 tablet by ity of mg tablet 00:00: mouth [place] 00 every 8 Medical (eight) Branch hours as needed for Nausea and Vomiting (N/V). tamsulosin 2019-0 Yes [id number] .4mg Take 1 U nivers 0.4 mg 24 5-17 capsule by ity of hr capsule 00:00: mouth at [place] as 00 bedtime. Medical Branch pantoprazol 2019-0 Yes [id number] 40mg Take 1 Univers e 5-17 tablet by ity of (PROTONIX) 00:00: mouth [place] 40 mg EC 00 daily. Medical tablet Branch ketorolac 2019-0 Yes [id number] 10mg Take 1 Un yesika 10 mg 5-17 tablet by ity of tablet 00:00: mouth [place] 00 every 6 Medical (six) Branch hours as needed for Alternate with [place] for pain scale 4-6. ondansetron 2019-0 Yes [id number] 4mg Take 1 Univers (ZOFRAN) 4 5-17 tablet by ity of mg tablet 00:00: mouth [place] 00 every 8 Medical (eight) Branch hours as needed for Nausea and Vomiting (N/V). tamsulosin 2019-0 Yes [id number] .4mg Take 1 U nivers 0.4 mg 24 5-17 capsule by ity of hr capsule 00:00: mouth at [place] as 00 bedtime. Medical Branch pantoprazol 0 Yes [id number] 40mg Take 1 Univers e 5-17 tablet by ity of (PROTONIX) 00:00: mouth [place] 40 mg EC 00 daily. Medical tablet Branch ketorolac 2018-0 Yes [id number] 10mg Take 1 Un yesika 10 mg 5-17 tablet by ity of tablet 00:00: mouth [place] 00 every 6 Medical (six) Branch hours as needed for Alternate with [place] for pain scale 4-6. ondansetron 2018- Yes [id number] 4mg Take 1 Univers (ZOFRAN) 4 5-17 tablet by ity of mg tablet 00:00: mouth [place] 00 every 8 Medical (eight) Branch hours as needed for Nausea and Vomiting (N/V). tamsulosin 2018-0 Yes [id number] .4mg Take 1 U nivers 0.4 mg 24 5-17 capsule by ity of hr capsule 00:00: mouth at [place] as 00 bedtime. Medical Branch pantoprazol 2018-0 Yes [id number] 40mg Take 1 Univers e 5-17 tablet by ity of (PROTONIX) 00:00: mouth [place] 40 mg EC 00 daily. Medical tablet Branch ketorolac 2019-0 Yes [id number] 10mg Take 1 Un yesika 10 mg 5-17 tablet by ity of tablet 00:00: mouth [place] 00 every 6 Medical (six) Branch hours as needed for Alternate with [place] for pain scale 4-6. ciprofloxac 2019-0 Yes [id number] 500mg Take 1 Univers in HCl 500 5-17 tablet by ity of mg tablet 00:00: mouth 2 [place] 00 (two) Medical times Branch daily. metroNIDAZO 2019-0 Yes [id number] 500mg Take 1 Univers LE 500 mg 5-17 tablet by ity o f tablet 00:00: mouth 2 [place] 00 (two) Medical times Branch daily. ciprofloxac 2018- 2020- No [id number] 500mg Take 1 Univers in HCl 500 5-17 04-06 tablet by ity of mg tablet 00:00: 00:00 mouth 2 [place] :[place] (two) Medical times Branch daily. metroNIDAZO 2020- No [id number] 500mg Take 1 Univers LE 500 mg 5-17 04-06 tablet by ity of tablet 00:00: 00:00 [...] ity o f tablet 00:00: mouth 3 (three) Medical times Branch daily. cyclobenzap 2017-0 Yes 5mg Take 1 Univ ers rine 5 mg 6-29 tablet by ity o f tablet 00:00: mouth 3 (three) Medical times Branch daily. cyclobenzap 2017-0 Yes 5mg Take 1 Univ ers rine 5 mg 6-29 tablet by ity o f tablet 00:00: mouth 3 (three) Medical times Branch daily. phenytoin 2017-0 Yes epilepsy Q.[id number] Take by [facility] (DILANTIN) 2-28 [id number] mouth 3 [facility] 100 MG ER 00:41: 3D (three) Medic al capsule 28 times Center daily. phenytoin 2017-0 Yes epilepsy Q.[id number] Take by [facility] (DILANTIN) 2-28 [id number] mouth 3 [facility] 100 MG ER 00:41: 3D (three) Medic al capsule 28 times Center daily. phenytoin 2017-0 Yes epilepsy Q.[id number] Take by [facility] (DILANTIN) 2-28 [id number] mouth 3 [facility] 100 MG ER 00:41: [...] Comments Source height 2021-06-04 09:00:00 61 [in_i] [facility] weight 2021-06-04 09:00:00 238 [lb_av] [facility] temperature 2021-06-04 09:00:00 97.8 [degF] [facility] bmi 2021-06-04 09:00:00 44.96 kg/m2 [facility] oximetry 2021-06-04 09:00:00 98 % [facility] respiratory rate 2021-06-04 09:00:00 17 /min Comm on [facility] blood pressure 2021-06-04 09:00:00 168 mm[Hg] [facility] systolic [facility] blood pressure 2021-06-04 09:00:00 94 mm[Hg] [facility] - diastolic [facility] Systolic blood 2019-11-25 20:10:00 166 mm[Hg] Univer sity of pressure [facility] Diastolic blood 2019-11-25 20:10:00 106 mm[Hg] Unive rsity of pressure [facility] Heart rate 2019-11-25 20:07:00 97 /min Universi ty of [facility] Body temperature 2019-11-25 20:07:00 36.83 Sara Univ ersity of [facility] Respiratory rate 2019-11-25 20:07:00 18 /min Univ ersity of [facility] Body weight 2019-11-25 20:07:00 108.863 kg Universi ty [facility] Oxygen saturation in 2019-11-25 20:07:00 96 /min University of Arterial blood by [place] [facility] hellen Pulse oximetry Branch Systolic blood 2019-11-25 20:10:00 166 mm[Hg] Univer sity of pressure [facility] Diastolic blood 2019-11-25 20:10:00 106 mm[Hg] Unive rsity of pressure [facility] Heart rate 2019-11-25 20:07:00 97 /min Universi ty of [facility] Body temperature 2019-11-25 20:07:00 36.83 Sara Univ ersity of [facility] Respiratory rate 2019-11-25 20:07:00 18 /min Univ ersity [facility] Body weight 2019-11-25 20:07:00 108.863 kg Universi ty [facility] Oxygen saturation in 2019-11-25 20:07:00 96 /min University of Arterial blood by [facility] hellen Pulse oximetry Branch Procedures This patient has no known procedures. Encounters Start End Encounter Admission Attending Care Care Encounter Source Date/Time Date/Time Type Type Clinicians Facility Department ID 2021-09-15 Outpatient [facility] [id number] Common 14:01:03 Cammy [id number] [facility] 2022-05-16 2022-05-16 (TEL) [facility] [id number] Co mmon 00:00:00 00:00:00 [facility] 2021-06-08 2021-06-08 (TEL) STLMLC STLMLC [id number] Co mmon 00:00:00 00:00:00 Spirit - [facility] 2021-06-04 2021-06-04 OFFICE STLMLC STLMLC [id number] Co mmon 00:00:00 00:00:00 VISIT NEW Spir it PT LEVEL 4 - [facility] 2019-11-27 2019-11-27 [id number] Univers 00:00:00 00:00:00 [facility] [id number] it y of [place] [id number] [place] as Professio [phone] [address] Office Building One 2019-11-27 2019-11-27 Telephone RandaRUST [id number] 00:00:00 00:00:00 [facility] [id number] [place] [id number] Professio [phone] [place] [address] [address] One 2019-11-25 2019-11-25 Urgent Pob1, Acute Care Clinic [facility] [id number]. [id number] Univers 14:55:25 15:15:25 Care Randa, [facility] [id number] ity of [place] [id number] [place] Professio [phone] [address] Office Building One 2019-11-25 2019-11-25 Urgent Pob1, Acute [facility] [id number] 14:55:25 15:15:25 Care Care [facility] Health [id number] [place] [id number] Professio [phone] [place] [address] [address] One 2019-11-25 2019-11-25 [facility] [id number] Univers 15:00:00 15:00:00 MADDIE ity [facility] 2019-11-25 2019-11-25 Telephone Pob1, Acute [facility] [id number] Univers 00:00:00 00:00:00 Care [facility] Health [id number] ity of Freddie [id number] [place] as Collinio [phone] Ok dical nal [address] [place] Office [address] One 2019-11-25 2019-11-25 Telephone Pob1, Acute [facility] [id number] 00:00:00 00:00:00 [facility] [id number] [place] [id number] [place] [phone] [address]al [address] Office [address] One Results Test Description Test Time Test Comments Results Result Comments Source SARS-COV2/RT-PCR ([facility]) 2020-02-29 10:51:00 Test Item Value Reference Range Interpretation Comme nts SARS-COV2/RT-PCR (test code = 6294356) Negative Not Detected, N egative SARS-COV-2 PERFORMING LAB (test code = 5389404) [facility] Negative result for this test determines [...] of the Act.Fact Sheet for Healthcare Prov iders:https://www.Enertiv/sites/default/files/product/documents/Fact_Sheet_HC _Fkhrhnucc_Gaye_HFNI-MeG-8.pdfFact Sheet for Healthcare Patients:https://www.Enertiv/sites/default/files/product/docume nts/Kjqf_Jzniy_Zyznlnkl_Bpxg_EWCY-WnZ-9.pdfPerforming Laboratory:[facility], [place] [address]MPXYGJPWFMO ANTIBODIES, IGG AND [id number] 11:17:00 Test Item Value Reference Range Interpretation Comments ANTICARDIOLIPIN IGG ANTIBODY (BEAKER) < GPL (test code = 712) ANTICARDIOLIPIN IGM ANTIBODY (BEAKER) 0.6 MPL (test code = 713) Anticardiolipin IgG Result Interpretation: NEG:<20 GPL; U/mlPOS:>/=20 GPL;U/mlAnticardiolipin IgM Result Interpretation: NEG:<20 MPL; U/mlPOS:>/=20 MPL;[id number] 19:19:00 Test Item Value Reference Range Interpretation Comments HOMOCYSTEINE (BEAKER) (test code 19.1 umol/L 5.1-15.4 H = 642) HEMOGLOBIN [id number] 16:55:00 Test Item Value Reference Range Interpretation Comments HEMOGLOBIN A1C (BEAKER) (test code = 5.1 % 4.3-6.1 368) TSH/FREE T4 IF [id number] 16:00:00 Test Item Value Reference Range Interpretation Comments THYROID STIMULATING HORMONE 1.64 uIU/mL 0.35-4.94 (BEAKER) (test code = 772) VITAMIN B12 AND [id number] 16:00:00 Test Item Value Reference Range Interpretation Comments VITAMIN B12 (BEAKER) (test code = 241 pg/mL 213-816 774) FOLATE (BEAKER) (test code = 362) 3.7 ng/mL >=7.0 L Effective 07/08/2014: Folate Reference Range ChangeNew: >=7.0 Previous: >=5.4SEDIMENTATION [id number] 15:57:00 Test Item Value Reference Range Interpretation Comments SEDIMENTATION RATE, ERYTHROCYTE 8 mm/HR 0-20 (BEAKER) (test code = 766) LIPID [id number] 15:32:00 Test Item Value Reference Range Interpretation [...] Borderline 130-159 High 160-189 Very High >=190C-REACTIVE [id number] 15:30:00 Test Item Value Reference Range Interpretation Comments C-REACTIVE PROTEIN (BEAKER) (test 2.96 mg/dL 0.00-0.50 H code = 676) CBC W/PLT COUNT & AUTO [id number] 15:05:00 Test Item Value Reference Range Interpretation [...] K/ L 0.00-0.20 (test code = 417) [id number] 07:34:00 Test Item Value Reference Range Interpretation Comments MAGNESIUM (BEAKER) 2.0 mg/dL 1.6-2.6 Specimen slightly (test code = 627) hemolyzed BASIC METABOLIC [id number] 07:33:00 Test Item Value Reference Range Interpretation [...] S NOT APPLICABLE FOR DIALYSIS PATIEN TS. [id number] 07:27:00 Test Item Value Reference Range Interpretation Comments MAGNESIUM (BEAKER) (test code = 1.7 mg/dL 1.6-2.6 627) SCREEN, [id number] 13:54:00 Test Item Value Reference Range Interpretation Comments TEST URINE (BEAKER) (test Negative code = 583) [id number] 02:55:00 Test Item Value Reference Range Interpretation Comments MAGNESIUM (BEAKER) (test code = 1.8 mg/dL 1.6-2.6 627) PHENYTOIN LEVEL, [id number] 00:30:00 Test Item Value Reference Range Interpretation Comments PHENYTOIN (DILANTIN) (BEAKER) (test 7.3 ug/mL 10.0-20.0 L code = 605) HEPATIC FUNCTION [id number] 00:26:00 Test Item Value Reference Range Interpretation [...] = 20 U/L 6-55 347) BASIC METABOLIC [id number] 00:26:00 Test Item Value Reference Range Interpretation [...] S NOT APPLICABLE FOR DIALYSIS PATIEN TS. [id number] 00:26:00 Test Item Value Reference Range Interpretation Comments ALBUMIN (BEAKER) (test code = 1145) 3.8 g/dL 3.5-5.0 CBC W/PLT COUNT & AUTO [id number] 00:16:00 Test Item Value Reference Range Interpretation [...]
[2022-12-30 07:05] LABS: Absolute Lymphocytes (CBC) 1.5 K/uL (0.7-4.9); Hematocrit 46.2 % (36.0-45.0); Lymphocytes % 11.5 % (15.3-44.8); MCV 88.9 fL (80-100); MPV 7.9 fL (7.6-11.3)
[2022-12-30 07:21] LABS: Albumin 3.3 g/dL (3.4-5.0); Bilirubin Direct 0.2 mg/dL (0-0.2); Bilirubin Indirect, Calculated 0.3 (0.2-0.8); Bilirubin Total 0.5 mg/dL (0.2-1.0); Phenytoin (Dilantin) Level 1.1 mcg/mL (10.0-20.0); Potassium 3.6 mEq/L (3.5-5.1); Troponin High Sensitivity 13.7 pg/mL (<58.9)
[2022-12-30 07:35] LABS: Protime INR 0.96
[2022-12-30] MEDS ORDERED: NA CHLORIDE 0.9% 100 ML ONE (08:22)
[2022-12-30] MEDS ORDERED: ONDANSETRON 4 MG/2 ML VIAL ONE (08:22)
[2022-12-30] MEDS ORDERED: FOSPHENYTOIN PE 500 MG/10 ML VIAL ONE (08:22)
--- NOTE | 2022-12-30 09:05 | ER ---
Nurse's Notes [facility] Name: Nelia Corley Age: 42 yrs Sex: Female : 1980 Arrival Date: 12/30/2022 Time: 05:41 Bed 7 Private MD: Diagnosis: Other seizures;Unspecified injury of head, initial encounter;Pain in left shoulder-chronic Presentation: 12/30 05:47 Chief complaint: EMS states: toned out for seizure activity, on scene c/o L shoulder aa9 pain and left advent pain. c/o flu like s/s for the past week and nausea. Coronavirus screen:. Ebola Screen: No symptoms or risks identified at this time. Initial Sepsis Screen: Does the patient meet any 2 criteria? No. Patient's initial sepsis screen is negative. Does the patient have a suspected source of infection? No. Patient's initial sepsis screen is negative. Risk Assessment: Do you want to hurt yourself or someone else? Patient reports no desire to harm self or others. Onset of symptoms was December 30, 2022. 05:47 Method Of Arrival: EMS: [facility] aa9 05:47 Acuity: JENNIFER 3 aa9 Triage Assessment: 05:50 General: Appears uncomfortable, unkempt, Behavior is cooperative, anxious. Pain: aa9 Complains of pain in right advent, left shoulder Aggravated by increased activity. Neuro: Level of Consciousness is awake, alert, obeys commands, Oriented to person, place, time, situation. Cardiovascular: Patient's skin is warm and dry. Respiratory: Airway is patent Respiratory effort is even, unlabored. GI: Reports nausea, vomiting, Patient currently denies diarrhea. : No signs and/or symptoms were reported regarding the genitourinary system. Derm: Skin is intact, is healthy with good turgor. Historical: - Allergies: 05:49 Ceclor; aa9 05:49 Sulfa (Sulfonamide Antibiotics); aa9 05:49 Topamax; aa9 05:49 Ultram; aa9 - PMHx: 05:49 ADD/ADHD; Anxiety; CVA; Hyperlipidemia; Hypertension; Kidney stones; NSTEMI; right aa9 rotator cuff torn; Seizures; - PSHx: 05:49 section; Cholecystectomy; aa9 - Immunization history:: Adult Immunizations up to date. - Social history:: Smoking status: Reported history of juuling and/or vaping. - Family history:: not pertinent. - Hospitalizations: : No recent hospitalization is reported. Screenin:51 Abuse screen: Denies threats or abuse. Denies injuries from another. Nutritional aa9 screening: Has had N/V for 3 or more days. Tuberculosis screening: No symptoms or risk factors identified. 08:38 [facility] ED Fall Risk Assessment (Adult) History of falling in the last 3 months, ko1 including since admission No falls in past 3 months (0 pts) Confusion or Disorientation No (0 pts) Intoxicated or Sedated No (0 pts) Impaired Gait No (0 pts) Mobility Assist Device Used No (0 pt) Altered Elimination No (0 pt) Score/Fall Risk Level 0 - 2 = Low Risk Oriented to surroundings, Maintained a safe environment, Educated pt \T\ family on fall prevention, incl call for assistance when getting out of bed, Assessed \T\ reinforced patient's understanding of fall precautions, Provided non-skid footwear, Hourly rounding (assess needs \T\ fall precautionary measures) done, Used ambulatory aids as needed (educated on \T\ assisted with), Used gait belt as appropriate. Assessment: 07:00 Reassessment: RECD REPORT FROM DALTON LIND. 42YO WF P/W SZ AND GENERALIZED PAIN/MALAISE. bp Vital Signs: 05:47 BP 166 / 90; Pulse 90; Resp 18 S; Pulse Ox 95% on R/A; aa9 06:51 BP 158 / 108; Pulse 75; Resp 19 S; Temp 99.2; Pulse Ox 96% ; aa9 07:35 BP 151 / 88; Pulse 70; Resp 16; Pulse Ox 97% ; ko1 08:38 BP 146 / 79; Pulse 69; Resp 18; Pulse Ox 95% ; ko1 ED Course: 05:44 Patient arrived in ED. wm 05:46 Chadd Harris MD is Attending Physician. rn 05:47 Dalton Hart, LELO is Primary Nurse. aa9 05:49 Triage completed. aa9 05:51 Arm band placed on. aa9 05:51 Patient has correct armband on for positive identification. Bed in low position. Side aa9 rails up X2. Pulse ox on. NIBP on. 05:59 Missed attempt(s): 20 gauge in right antecubital area. Bleeding controlled, band aid aa9 applied, catheter tip intact. 06:07 XRAY Shoulder (1 View) In Process Unspecified. EDMS 06:07 Chest Single View XRAY In Process Unspecified. EDMS 06:27 CT Head C Spine In Process Unspecified. EDMS 06:38 Inserted saline lock: 22 gauge in right hand, using aseptic technique. Blood collected. aa9 06:49 Dilantin Sent. aa9 06:49 Flu Sent. aa9 06:49 Basic Metabolic Panel Sent. aa9 06:49 CBC with Diff Sent. aa9 06:49 Hepatic Function Sent. aa9 06:49 Protime (+inr) Sent. aa9 06:49 Ptt, Activated Sent. aa9 06:49 Troponin High Sensitivity Sent. aa9 07:00 Seizure precautions initiated. ko1 07:00 IV discontinued, intact, bleeding controlled, No redness/swelling at site. Pressure ko1 dressing applied. 07:30 Attending Physician role handed off by Chadd Harris MD kdr 07:30 Hank Collins MD is Attending Physician. kdr 08:38 Call light in reach. ko1 08:38 No provider procedures requiring assistance completed. ko1 Administered Medications: 07:15 Drug: Ondansetron IVP 4 mg Route: IVP; Site: right wrist; bp 08:15 Drug: Fosphenytoin IVPB 1 grams Route: IVPB; Site: right wrist; bp 09:12 Drug: Cyclobenzaprine PO 10 mg Route: PO; ko1 Medication: 08:38 VIS not applicable for this client. ko1 Outcome: 07:00 Discharged to home ambulatory. ko1 07:00 Condition: improved 07:00 Discharge instructions given to patient, Instructed on discharge instructions, follow up and referral plans. medication usage, Demonstrated understanding of instructions, follow-up care, medications, Prescriptions given X 2. 09:04 Discharge ordered by . kdr 09:15 Patient left the ED. ko1 Signatures: Dispatcher [employer] EDIA Hank Collins MD MD kdr Chadd Harris MD MD rn Peltier, Brian, RN RN bp [place], Wendy wm Avalos, Aylin, RN RN yael9 Tiara Arrington RN RN ko1
--- NOTE | 2022-12-30 09:05 | EDPHYS ---
Physician Documentation [facility] Name: Nelia Corley Age: 42 yrs Sex: Female : 1980 Arrival Date: 12/30/2022 Time: 05:41 Bed 7 Private MD: ED Physician Hank Collins HPI: 12/30 06:24 This 42 yrs old Female presents to ER via EMS with complaints of Seizure. rn 06:24 The patient presents after having a single isolated seizure. Seizure onset: just prior rn to arrival. Associated injury: Head/face: Left upper extremity:. Current symptoms: headache. The patient has experienced similar episodes in the past. Pt reports recent illness with cough, feels like was getting better, had seizure at home, found on ground by family post-ictal and complains of headache and left shoulder pain. Unsure if she took her dilantin. . Historical: - Allergies: 05:49 Ceclor; aa9 05:49 Sulfa (Sulfonamide Antibiotics); aa9 05:49 Topamax; aa9 05:49 Ultram; aa9 - PMHx: 05:49 ADD/ADHD; Anxiety; CVA; Hyperlipidemia; Hypertension; Kidney stones; NSTEMI; right aa9 rotator cuff torn; Seizures; - PSHx: 05:49 section; Cholecystectomy; aa9 - Immunization history:: Adult Immunizations up to date. - Social history:: Smoking status: Reported history of juuling and/or vaping. - Family history:: not pertinent. - Hospitalizations: : No recent hospitalization is reported. ROS: 06:24 Constitutional: Negative for fever, chills, and weight loss, Eyes: Negative for injury, rn pain, redness, and discharge, Neck: + neck pain Cardiovascular: Negative for chest pain, palpitations, and edema, Respiratory: Negative for shortness of breath, cough, wheezing, and pleuritic chest pain, Abdomen/GI: Negative for abdominal pain, nausea, vomiting, diarrhea, and constipation, Back: Negative for injury and pain, MS/Extremity: + left shoulder pain Skin: Negative for injury, rash, and discoloration, Neuro: + headache and seizure Exam: 06:24 Constitutional: This is a well developed, well nourished patient who is awake, alert, rn tearful Head/Face: Normocephalic, no scalp hematoma noted, no laceration Eyes: Pupils equal round and reactive to light, extra-ocular motions intact. Neck: NO midline cervical tenderness Chest/axilla: Normal chest wall appearance and motion. Nontender with no deformity. No lesions are appreciated. Cardiovascular: Regular rate and rhythm. No pulse deficits. Respiratory: No increased work of breathing, no retractions or nasal flaring. Abdomen/GI: Soft, non-tender Skin: Warm, dry MS/ Extremity: Pulses equal, no cyanosis. Neurovascular intact. Mild pain with ROM left shoulder. Neuro: Awake and alert, GCS 15, oriented to person, place, time, and situation. Cranial nerves II-XII grossly intact. Motor strength 5/5 in all extremities. Sensory grossly intact. Vital Signs: 05:47 BP 166 / 90; Pulse 90; Resp 18 S; Pulse Ox 95% on R/A; aa9 06:51 BP 158 / 108; Pulse 75; Resp 19 S; Temp 99.2; Pulse Ox 96% ; aa9 07:35 BP 151 / 88; Pulse 70; Resp 16; Pulse Ox 97% ; ko1 08:38 BP 146 / 79; Pulse 69; Resp 18; Pulse Ox 95% ; ko1 MDM: 05:46 Patient medically screened. rn 07:08 Transition of care: After a detail discussion of the patient's case, care is rn transferred to Hank Collins MD. 11:44 Data reviewed: vital signs, nurses notes, lab test result(s), radiologic studies. kdr 12/30 05:48 Order name: Basic Metabolic Panel; Complete Time: 07:32 rn 12/30 05:48 Order name: CBC with Diff; Complete Time: 07:32 rn 12/30 05:48 Order name: Hepatic Function; Complete Time: 07:32 rn 12/30 05:48 Order name: Protime (+inr); Complete Time: 07:58 rn 12/30 05:48 Order name: Ptt, Activated; Complete Time: 07:58 rn 12/30 05:48 Order name: Troponin High Sensitivity; Complete Time: 07:32 rn 12/30 05:48 Order name: Flu; Complete Time: 07:32 rn 12/30 05:48 Order name: Dilantin; Complete Time: 07:32 rn 12/30 05:48 Order name: CT Head C Spine rn 12/30 05:48 Order name: XRAY Shoulder (1 View) rn 12/30 05:48 Order name: Chest Single View XRAY rn 12/30 05:48 Order name: EKG; Complete Time: 05:49 rn 12/30 05:48 Order name: IV Start; Complete Time: 06:38 rn 12/30 05:48 Order name: Cardiac monitoring; Complete Time: 06:49 rn 12/30 05:48 Order name: EKG - Nurse/Tech; Complete Time: 06:49 rn 12/30 05:48 Order name: Labs collected and sent; Complete Time: 06:43 rn 12/30 05:48 Order name: O2 Per Protocol; Complete Time: 06:43 rn 12/30 05:48 Order name: O2 Sat Monitoring; Complete Time: 06:43 rn Administered Medications: 07:15 Drug: Ondansetron IVP 4 mg Route: IVP; Site: right wrist; bp 08:15 Drug: Fosphenytoin IVPB 1 grams Route: IVPB; Site: right wrist; bp 09:12 Drug: Cyclobenzaprine PO 10 mg Route: PO; ko1 Disposition Summary: 12/30/22 09:04 Discharge Ordered Location: Home kdr Problem: new kdr Symptoms: have improved kdr Condition: Fair kdr Diagnosis - Other seizures kdr - Unspecified injury of head, initial encounter kdr - Pain in left shoulder - chronic kdr Followup: kdr - With: Private Physician - When: 2 - 3 days - Reason: If symptoms return, Further diagnostic work-up, Recheck today's complaints, Continuance of care, Re-evaluation by your physician Discharge Instructions: - Discharge Summary Sheet kdr - Joint Pain kdr - Shoulder Pain, [id number] kdr - Seizure, Adult, [id number] kdr - Head Injury, Adult, [id number] kdr Forms: - Medication Reconciliation Form kdr - Thank You Letter kdr Prescriptions: - Ibuprofen 600 mg Oral Tablet - take 1 tablet by ORAL route every 6 hours As needed take with food; 15 tablet; kdr Refills: 0, Product Selection Permitted - Cyclobenzaprine 10 mg Oral Tablet - take 1 tablet by ORAL route every 8 hours As needed; 30 tablet; Refills: 0, kdr Product Selection Permitted Signatures: Dispatcher [employer] Hank Stewart MD MD kdr Nieto, Roman, MD MD rn Peltier, Brian, RN RN bp More Hart, RN RN aa9 Tiara Arrington, RN RN ko1
[2022-12-30] MEDS ORDERED: CYCLOBENZAPRINE 10 MG TAB ONE (09:17)
[2022-12-30 09:31] VITALS: TEMP 99.2
[2022-12-30 09:45] VITALS: BP 146/79; O2SAT 95
--- NOTE | 2023-01-01 14:48 | EKG ---
Test Date: 2022-12-30 Test Time: 06:45:36 Floor Coverer: SUSAN MEASUREMENT RESULTS: Intervals: Rate: 77 MO: 144 QRSD: 82 QT: 410 QTc: 463 Kingsley: P: 74 MO: 144 QRS: 71 T: 80 INTERPRETIVE STATEMENTS: Sinus rhythm with marked sinus arrhythmia Possible Anterior infarct, age undetermined Abnormal ECG Compared to ECG 12/09/2022 13:27:00 Myocardial infarct finding now present Sinus bradycardia no longer present Electronically Signed On 01-01-23 14:44:54 CDT by Kalpesh Jensen
--- NOTE | 2023-01-03 13:20 | RAD REPORT ---
EXAM DESCRIPTION: RAD - Chest Single View - 12/30/2022 6:06 am CLINICAL HISTORY: 42 years Female, seizure, cough COMPARISON: 03/03/2020 TECHNIQUE: Single portable x-ray view of the chest performed on 12/30/2022 at 6:00 AM FINDINGS: The lungs are well expanded and are clear. There is no evidence of a pneumothorax. The cardiac silhouette is normal in size and configuration. The mediastinal contours are normal. No acute osseous abnormality is identified. No acute soft tissue abnormalities are seen. Lines and tubes: None. Free air: None IMPRESSION: No evidence of acute intrathoracic disease. Electronically signed by: Dulce Maria Fry DO 12/30/2022 6:16 AM CDT Due to temporary technical issues with the PACS/Fluency reporting system, reports are being signed by the in house radiologist without review as a courtesy to ensure prompt reporting. The interpreting r adiologist is fully responsible for the content of the report.
--- NOTE | 2023-01-03 13:24 | RAD REPORT ---
EXAM DESCRIPTION: RAD - Shoulder 1 View - 12/30/2022 6:06 am CLINICAL HISTORY: 42 years Female PAIN TECHNIQUE: 1 x-ray view of the left shoulder was performed on 12/30/2022 at 6:01 AM. COMPARISON: None FINDINGS: There is no evidence of fracture or dislocation. There is no significant arthritis or dege nerative change. No focal lytic or sclerotic bone lesions are seen. Bone mineralization is normal. No acute soft tissue abnormalities are identified. IMPRESSION: No evidence of acute osseous injury involving the left shoulder on this single projectio n. Electronically signed by: Dulce Maria Fry DO 12/30/2022 6:14 AM CDT Due to temporary technical issues with the PACS/Fluency reporting system, reports are being signed by the in house radiologist without review as a courtesy to ensure prompt reporting. The interpreting r adiologist is fully responsible for the content of the report.
--- NOTE | 2023-01-03 13:27 | RAD REPORT ---
EXAM DESCRIPTION: CT - Head C Spine Mpr Wo Con - 12/30/2022 7:03 am COMPARISON: CT head December 09, 2022 CLINICAL HISTORY: [facility] seizure, fall, head injury TECHNIQUE: Axial images were obtained from skull base to vertex without intravenous contrast. Imag es viewed on bone and brain windows. Multiplanar reformats were performed. Automated exposure contr ol was utilized on this examination as a dose lowering technique. FINDINGS: Brain parenchyma, ventricles, dura, meninges, and extra-axial spaces: Ventricles and sulci are normal. Small chronic lacunar infarct of the right posterior cerebellum No acute intracranial hemorrhage or abnormal extra-axial fluid collections are present. Vascular structures: No hyperdense arteries or veins. Calvarium, mastoid air cells, paranasal sinuses and orbits: The calvarium is normal. The mastoid air cells are clear. Visualized paranasal sinuses are unremarkable. Orbital structures are unremarkable. EXAM DESCRIPTION: CT Cervical Spine COMPARISON: CT cervical spine December 09, 2022 CLINICAL HISTORY: [facility] seizure, fall, head injury TECHNIQUE: Axial CT images were obtained through the entire cervical spine without contrast. Sagit francois and coronal reconstructions are provided. Automated exposure control was utilized on this examina tion as a dose lowering technique. FINDINGS: Vertebrae: Vertebral statures and alignment are normal. No acute fracture, dislocation o r destructive osseous process is present. Spinal canal, foramina, and facet joints: Disc osteophyte complexes result in mild spinal canal stenosis at C5-C6 and C6-C7. Uncovertebral hype rtrophy results in moderate neural foraminal stenosis at bilateral C7. Paraspinous soft-tissues: Normal. Thyroid: Normal. Other Findings: None. IMPRESSION: HEAD IMPRESSION: 1. No acute intracranial abnormality. 2. Small chronic lacunar infarct of the posterior right cerebellum. C-SPINE IMPRESSION: No acute findings of the cervical spine. Electronically signed by: Lamont Sousa MD 12/30/2022 6:55 AM CDT Due to temporary technical issues with the PACS/Fluency reporting system, reports are being signed by the in house radiologist without review as a courtesy to ensure prompt reporting. The interpreting r adiologist is fully responsible for the content of the report.
== END 2022-12-30 09:15 | disposition home or self-care (01) ==
LOC: ER 05:41
DX: G40.89 Other seizures (principal); S09.90XA Unspecified injury of head, initial encounter; M25.512 Pain in left shoulder; Z88.1 Allergy status to other antibiotic agents; Z88.2 Allergy status to sulfonamides; Z88.5 Allergy status to narcotic agent; Z88.8 Allergy status to other drugs, medicaments and biological substances
CPT/HCPCS: 93005; 85025; 80048; 36415; 85610; 80076; 85730; 80185; 84484; 87804 ×2; 70450; 72125; 71045; 73020; 96375; 96374; 99285; Q2009; J2405